=== PATIENT | male | born 1965 | race Caucasian/White ===

== ENCOUNTER 2016-09-26 08:11 | Emergency (ER) | payer OTHER ==
[~2016-09-26] VITALS: Ht 175.3 cm; Wt 84.3 kg
[~2016-09-26 08:11] MED LIST: ALBU1AER9 INH; ALBU1NEB10 INH; AMIT50TA3 PO; ASPI-113 PO; FISHOIL PO; LEVO1TAB34 PO; PARO40TA3 PO; RANI300T PO; SUMA50TA15 PO; pravastatin PO
[2016-09-26 08:12] VITALS: TEMP 37.1; Ht 175.3 cm; Wt 84.3 kg
[2016-09-26] MEDS ORDERED: ALBUT/IPRATROP 3MG/0.5MG NEB 3 ML VIAL INH STA (08:45)
[2016-09-26] MEDS ORDERED: SODIUM CHLORIDE 0.9% 1000ML 1,000 ML IV STA (08:45)
[2016-09-26] MEDS ORDERED: IBUPROFEN 800 MG TAB PO STA (08:45)
[2016-09-26] MEDS ORDERED: IBUPROFEN 200 MG TAB ONE (08:50)
[2016-09-26] MEDS ORDERED: IBUPROFEN 600 MG TAB ONE (08:50)
[2016-09-26] MEDS ORDERED: PRVC/40 PO (08:53)
[2016-09-26 09:12] LABS: BASO % 0.3 %; BASO ABS # 0.04 K/uL (0-0.2); COMPLETE YES; EOS % 1.4 %; HEMATOCRIT 38.9 % (42-52); IG% 0.6 %; LYMPH % 26.7 %; LYMPH ABS # 3.49 K/uL (1.2-3.4); MEAN CELL VOLUME 88.2 fL (80-100); MEAN CORPUSCULAR HEMOGLOBIN 30.2 pg (25-34); MEAN CORPUSCULAR HGB CONC 34.2 g/dl (32-36); MEAN PLATELET VOLUME 9.7 fL (7.4-10.4); PLATELET COUNT 225 K/uL (130-400); RED BLOOD COUNT 4.41 M/uL (4.7-6.1); WHITE BLOOD COUNT 13.09 K/uL (4.8-10.8)
[2016-09-26 09:29] LABS: BUN/CREATININE RATIO 9.2 (10-20); CALCIUM 8.3 mg/dl (8.5-10.1); CREATININE 0.93 mg/dl (0.60-1.40); POTASSIUM 3.5 mmol/L (3.5-5.1)
[2016-09-26 09:32] LABS: ALB/GLOB RATIO 0.8 (0.9-2)
--- NOTE | 2016-09-26 09:45 | DIAGNOSTIC IMAGING REPORT ---
TWO VIEW CHEST CLINICAL HISTORY: Cough and fever. Flulike symptoms. FINDINGS: PA and lateral chest radiographs are compared to study dated 04/26/2007. The heart is top normal for projection. The pulmonary vasculature is noncongested. Chronic interstitial thickening is noted. Bibasilar atelectasis is observed. There is no airspace consolidation typical for pneumonia or pleural effusion. There is no pneumothorax. The skeletal structures are osteopenic. There is moderate to advanced thoracolumbar scoliosis with significant distortion of the thoracic cage. IMPRESSION: No acute cardiopulmonary abnormality. Electronically signed by: Nate Haynes M.D. 09/26/2016 9:43 AM
[2016-09-26] MEDS ORDERED: PRED50TA PO (10:48)
[2016-09-26] MEDS ORDERED: OSELTAMIVIR PHOSPHATE 75 MG CAP PO STA (10:48)
[2016-09-26] MEDS ORDERED: OSEL75CA12 PO (10:48)
[2016-09-26] MEDS ORDERED: DOXY100C76 PO (10:48)
--- NOTE | 2016-09-26 10:51 | EMERGENCY ROOM VISIT NOTE ---
History First contact with patient: : Chief Complaint: COUGH Stated Complaint: COUGH, CONGESTION, CHEST PAIN Nursing Triage Summary: Cough, diarrhea, vomiting since . Went to PCP on tuesday and was told to take robitussin. Was improving and then cough, vomting, and chest pain returned last night. History of Present Illness Patient is a 51-year-old white male past medical history significant for asthma who presents to emergency department for evaluation of influenza-like symptoms 2-3 days. He notes that about a week ago, he had a roughly 24 hour GI illness including nausea, vomiting and diarrhea, but that shortly resolved. He then developed cough and congestion. He was seen by his PCP on 09/21, and told to take Robitussin. He reports that they suspect that his illness with viral in nature at that time. He states he began feeling a bit better until about 2 days ago, at that point, he began to note that he felt run down and lethargic. He started running low-grade fevers around 99F orally. He was working last night and slept almost the entire shift. He did feel nauseous and vomited 1 earlier this morning. He took a nausea medication for this. He also performed a DuoNeb treatment when he got home from work about 4 hours ago. He complains of sinus congestion, headache, cough and congestion. He notes this chest feels sore when he coughs or takes a deep breath. He has congestion in his chest that he can feel but he cannot bring anything up when he coughs. He did receive an influenza vaccine this season. 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 He does have a history of asthma and bronchitis. Review of Systems Review of systems as per HPI. All other systems reviewed were negative. 10 systems reviewed. Past Medical/Surgical History Medical Problems: (1) Acute urinary tract infection (2) Asthma (3) Calculus of kidney and ureter (4) Chronic back pain (5) Depression (6) Dyslipidemia (7) Gastroesophageal reflux disease (8) Kidney stone (9) Migraine (10) Scoliosis (11) Sleep disorder Surgical Problems: (1) spinal surgery due to scoliosis Electronic medical records are reviewed and summarized as above/below. See Problem List. Social History Smoking Status: Former Smoker Alcohol Use: none Marital Status: Housing Status: lives with significant other Occupation Status: employed Current/Historical Medications Scheduled Albuterol Soln (Ventolin Soln), 1 AMP INH Q4HR PRN Albuterol Sulfate (Proair Hfa), 2 PUFFS INH QID Amitriptyline Hcl (Amitriptyline Hcl), 50 MG PO HS Aspirin Enteric Coated (Ecotrin Or Generic), 325 MG PO DAILY Doxycycline Monohydrate (Monodox), 100 MG PO BID Fish Oil ([place]-3), 1 CAP PO DAILY Oseltamivir (Tamiflu), 75 MG PO BID Paroxetine Hcl (Paxil), 40 MG PO DAILY Pravastatin Sod (Pravastatin Sodium), 40 MG PO HS Prednisone (Prednisone), 50 MG PO DAILY Ranitidine Hcl (Zantac), 300 MG PO BID Sumatriptan Succinate (Imitrex), 50 MG PO PRN Allergies Coded Allergies: No Known Allergies (Unverified , 09/26/16) Physical Exam Vital Signs Date Time Temp Pulse Resp B/P Pulse Ox O2 Delivery O2 Flow Rate FiO2 09/26/16 11:23 74 18 114/74 94 09/26/16 09:52 84 18 102/60 95 Room Air 09/26/16 08:34 91 09/26/16 08:16 94 Room Air 09/26/16 08:12 37.1 100 18 121/80 93 Room Air Physical Exam MENTAL STATUS: Patient is an ill although nontoxic appearing 51-year-old white male who is awake and alert and in no acute distress. Temperature in triage was 37.1C orally, however he appeared slightly diaphoretic in the exam room and temperature was rechecked and was 37.5C orally. HEAD: Atraumatic, without temporal or scalp tenderness. EYES: PERRL, EOMI, no discharge or injection. EARS: Tympanic membranes intact, not inflamed, have normal contour. External canals clear. NOSE: Nares patent, turbinates edematous and boggy with clear rhinorrhea. MOUTH: Mucous membranes moist, no lesions, tongue and gums appear normal. THROAT: No pharyngeal injection, exudates, or tonsillar hypertrophy. Airway is patent. NECK: Supple, nontender, no lymphadenopathy. HEART: Regular rate and rhythm without murmurs, ectopy, gallops, or rubs. LUNGS: Clear to auscultation and breath sounds equal, no wheezes, rales, or rhonchi. SKIN: Normal. NEUROLOGICAL: Sensory and motor functions grossly intact. Normal gait. Medical Decision & Procedures ER Provider Diagnostic Interpretation: TWO VIEW CHEST CLINICAL HISTORY: Cough and fever. Flulike symptoms. FINDINGS: PA and lateral chest radiographs are compared to study dated 04/26/2007. The heart is top normal for projection. The pulmonary vasculature is noncongested. Chronic interstitial thickening is noted. Bibasilar atelectasis is observed. There is no airspace consolidation typical for pneumonia or pleural effusion. There is no pneumothorax. The skeletal structures are osteopenic. There is moderate to advanced thoracolumbar scoliosis with significant distortion of the thoracic cage. IMPRESSION: No acute cardiopulmonary abnormality. Laboratory Results 09/26/16 08:56 Red Blood Count 4.41, Mean Corpuscular Volume 88.2, Mean Corpuscular Hemoglobin 30.2, Mean Corpuscular Hemoglobin Concent 34.2, Mean Platelet Volume 9.7, Neutrophils (%) (Auto) 56.0, Lymphocytes (%) (Auto) 26.7, Monocytes (%) (Auto) 15.0, Eosinophils (%) (Auto) 1.4, Basophils (%) (Auto) 0.3, Neutrophils # (Auto ) 7.34, Lymphocytes # (Auto) 3.49, Monocytes # (Auto) 1.96, Eosinophils # (Auto ) 0.18, Basophils # (Auto) 0.04 09/26/16 08:56 Test 09/26/16 08:56 White Blood Count 13.09 K/uL (4.8-10.8) Red Blood Count 4.41 M/uL (4.7-6.1) Hemoglobin 13.3 g/dL (14.0-18.0) Hematocrit 38.9 % (42-52) Mean Corpuscular Volume 88.2 fL (80-100) Mean Corpuscular Hemoglobin 30.2 pg (25-34) Mean Corpuscular Hemoglobin Concent 34.2 g/dl (32-36) Platelet Count 225 K/uL (130-400) Mean Platelet Volume 9.7 fL (7.4-10.4) Neutrophils (%) (Auto) 56.0 % Lymphocytes (%) (Auto) 26.7 % Monocytes (%) (Auto) 15.0 % Eosinophils (%) (Auto) 1.4 % Basophils (%) (Auto) 0.3 % Neutrophils # (Auto) 7.34 K/uL (1.4-6.5) Lymphocytes # (Auto) 3.49 K/uL (1.2-3.4) Monocytes # (Auto) 1.96 K/uL (0.11-0.59) Eosinophils # (Auto) 0.18 K/uL (0-0.5) Basophils # (Auto) 0.04 K/uL (0-0.2) RDW Standard Deviation 41.7 fL (36.4-46.3) RDW Coefficient of Variation 12.9 % (11.5-14.5) Immature Granulocyte % (Auto) 0.6 % Immature Granulocyte # (Auto) 0.08 K/uL (0.00-0.02) Nucleated RBC Absolute Count (auto) 0.09 K/uL (0-0) Nucleated Red Blood Cells % 0.7 % Anion Gap 9.0 mmol/L (3-11) Est Creatinine Clear Calc Drug Dose 93.0 ml/min Estimated GFR () 109.0 Estimated GFR (Non- 94.1 BUN/Creatinine Ratio 9.2 (10-20) Calcium Level 8.3 mg/dl (8.5-10.1) Total Bilirubin 0.4 mg/dl (0.2-1) Aspartate Amino Transf (AST/SGOT) 26 U/L (15-37) Alanine Aminotransferase (ALT/SGPT) 29 U/L (12-78) Alkaline Phosphatase 125 U/L (45-117) Total Protein 7.2 gm/dl (6.4-8.2) Albumin 3.3 gm/dl (3.4-5.0) Globulin 3.9 gm/dl (2.5-4.0) Albumin/Globulin Ratio 0.8 (0.9-2) Lipase 103 U/L (73-393) Influenza Type A Antigen Neg for Influ A (NEG) Influenza Type B Antigen Neg for Influ B (NEG) Medications Administered Medications (Trade) Dose Ordered Sig/Nemo Route Start Time Stop Time Status Last Admin Dose Admin Sodium Chloride (Nss 1000ml) 1,000 ml @ 999 mls/hr Q1H1M STAT IV 09/26/16 08:45 09/26/16 09:45 DC 09/26/16 08:45 999 MLS/HR Albuterol/ Ipratropium (Duoneb) 3 ml NOW STAT INH 09/26/16 08:45 09/26/16 08:47 DC 09/26/16 08:54 3 ML Ibuprofen (Advil Tab) 200 mg STK-MED ONCE .ROUTE 09/26/16 08:50 09/26/16 08:51 DC 09/26/16 08:53 200 MG Ibuprofen (Motrin Tab) 600 mg STK-MED ONCE .ROUTE 09/26/16 08:50 09/26/16 08:51 DC 09/26/16 08:53 600 MG Oseltamivir Phosphate (Tamiflu Cap) 75 mg NOW STAT PO 09/26/16 10:48 09/26/16 10:49 DC 09/26/16 11:18 75 MG ED Course The patient was seen and evaluated as above. His old records were reviewed. IV access was obtained and he was hydrated with normal saline solution. He was given a DuoNeb, and was medicated with ibuprofen 800 mg orally for his low- grade fever and myalgias. Influenza swab was obtained and was negative. CBC with differential, CMP and lipase were also drawn. Chest x-ray was performed. Chest x-ray was negative. Laboratory studies revealed a slightly elevated white count at 13,000. Electrolytes are without significant abnormality. Renal function is normal. Liver functions are not elevated. Lipase is normal. The patient was reassessed. He reported no real change in his symptoms. Despite his negative influenza swab, but did discuss with him treating with Tamiflu, given his high risk job and he is in agreement. He was given his first dose here in the emergency department. I do suspect that he is experiencing a viral list, which may have exacerbated his underlying asthma. Differential diagnoses also entertained included pneumonia and bronchitis. He certainly does not have any signs of meningitis or encephalitis on exam. No respiratory distress or increased work of breathing. Treatment options were discussed with the patient. He has inhalers and nebulizers at home that he can use. He was given a prescriptive for Tamiflu, and a prescription for doxycycline and prednisone that he can start intake if his symptoms are not improving in the next 3-5 days. He was encouraged to return to the emergency department for worsening symptoms or follow up with his PCP if he is not improving. He states understanding of this and was agreeable. He was given a note to be at work for his next shift due to his likely contagious illness. Medical Decision See ED Course. Impression Primary Impression: Influenza-like syndrome Departure Information Prescriptions Prednisone (Prednisone) 50 Mg Tab 50 MG PO DAILY for 4 Days, #5 TAB Prov: Hiral Lancaster PA 09/26/16 Doxycycline Monohydrate (Monodox) 100 Mg Cap 100 MG PO BID, #20 CAP Prov: Hiral Lancaster PA 09/26/16 Oseltamivir (Tamiflu) 75 Mg Cap 75 MG PO BID for 5 Days, #10 CAP Prov: Hiral Lancaster PA 09/26/16 Referrals Brina Sweeney M.D. (MEDICAL) (PCP) Patient Instructions A Signature Page, My [facility] [employer] Additional Instructions Continue inhalers/nebulizers as prescribed. Tamiflu 75mg : Take 1 tablet 2 times daily for 5 days. Prednisone 50mg: Once daily until the prescription is finished. It is best to take this earlier in the day as some patients note occasional difficulty falling asleep when taken in the late evening. Doxycycline 100mg: Take one pill twice daily for 10 days for your infection. Take with food, but avoid dairy. Avoid prolonged sun exposure since this medication makes you temporarily more susceptible to sunburns. All antibiotics can cause diarrhea. If this occurs and you feel worse or it does not resolve in 1-2 days follow up with your doctor or return to the Emergency Department as this could be signs of serious underlying problems. Any medication can cause an allergic reaction, stop the pills immediately and return to the ER for rash, hives, breathing difficulties, or swelling. Ibuprofen(Motrin, Advil) may be used for fever or pain. Use 600mg every six hours as needed. Take with food. Avoid using more than 2400mg in a 24 hour period. Do not use 2400mg per day for more than three consecutive days without physician direction. Prolonged inappropriate use can lead to stomach upset or ulcers. This is available over the counter and typically comes in 200mg tablets. (AND/OR) Acetaminophen(Tylenol) may be used for fever or pain. Use 1000mg every eight hours as needed. Avoid using more than 3000mg in a 24 hour period. This is available over the counter. Read all the package inserts or medication information paperwork provided. If you have any questions or concerns call your primary provider, pharmacist or the ER for assistance. Rest and drink plenty of fluids. Continue current medications. Return to the ER for chest pain, difficulty breathing, persistent fevers, vomiting, worsening of your condition, or as needed. Follow up with your primary physician this week for a recheck of your current condition.
[2016-09-26 11:23] VITALS: BP 114/74; PULSE 74; O2SAT 94
[2016-10-19] MEDS ORDERED: LEVO1TAB33 PO (12:12)
[2016-10-19] MEDS ORDERED: OXYC-57 PO (12:15)
[2017-02-02] MEDS ORDERED: PRED10TA PO (15:19)
[2017-02-02] MEDS ORDERED: LVQ500 PO (15:19)
== END 2016-09-26 11:24 | disposition home or self-care (01) ==
LOC: C.EDB 08:12 → C.EDA 11:24
DX: R69 Illness, unspecified (principal); J45.909 Unspecified asthma, uncomplicated; E78.5 Hyperlipidemia, unspecified; F32.9 Major depressive disorder, single episode, unspecified; Z87.891 Personal history of nicotine dependence; Z79.82 Long term (current) use of aspirin; Z79.899 Other long term (current) drug therapy

== ENCOUNTER 2016-10-15 16:05 | Inpatient (IN) | payer OTHER ==
[~2016-10-15] VITALS: Ht 175.3 cm; Wt 90.3 kg
[~2016-10-15 16:05] MED LIST changes: +DOXY100C76 PO; -LEVO1TAB34 PO; +PRVC/40 PO; -pravastatin PO
[2016-10-15] MEDS ORDERED: ONDANSETRON INJ 2 MG/ML 2 ML VIAL IV STA (16:25)
[2016-10-15] MEDS ORDERED: SODIUM CHLORIDE 0.9% 1000ML 1,000 ML IV STA (16:25)
[2016-10-15] MEDS ORDERED: KETOROLAC TROMETHAMINE 30 MG/ML VIAL IV STA (16:25)
[2016-10-15] MEDS ORDERED: HYDROmorphone INJ 1 MG/ML SYR IV STA ×3 (16:50→19:19)
--- NOTE | 2016-10-15 16:53 | EMERGENCY ROOM VISIT NOTE ---
History Report prepared by Romero: Jaya White Under the Supervision of: Dr. Mariann Hurd M.D. First contact with patient: 16:22 Chief Complaint: ABDOMINAL PAIN Stated Complaint: UPPER ABDOMINAL PAIN, TO LOWER ABD INTO CHEST History of Present Illness The patient is a 51 year old male who presents to the Emergency Room with complaints of persistent abdominal pain that started around 2100 last night while at work. He first thought it was indigestion, and took Peptol Bismol, but it did not help. Earlier today, his sharp abdominal pain started radiating into his chest. He notes that the pain is a 10 out of 10 in severity at worst. The pain is not positional and has no association with movement. He denies any shortness of breath or diarrhea. The patient is on Ranitidine. He has a history of GERD, hypertension, and gallstones. He recently quit smoking. The patient does drink alcohol. Source of History: patient Onset: 2100 last night Position: abdomen Symptom Intensity: 10/10 in severity at worst Quality: sharp Timing: other (persistent) Associated Symptoms: + chest pain, No SOB, No diarrhea Note: No other associated symptoms noted. Review of Systems See HPI for pertinent positives & negatives. A total of 10 systems reviewed and were otherwise negative. Past Medical & Surgical Medical Problems: (1) Acute urinary tract infection (2) Asthma (3) Calculus of kidney and ureter (4) Chronic back pain (5) Depression (6) Dyslipidemia (7) Gastroesophageal reflux disease (8) Kidney stone (9) Migraine (10) Scoliosis (11) Sleep disorder Surgical Problems: (1) spinal surgery due to scoliosis Family History Diabetes mellitus FH: cancer FH: heart disease FH: kidney disease FHx: gallstones Hypertension Social History Smoking Status: Former Smoker Alcohol Use: none Marital Status: Housing Status: lives with significant other Occupation Status: employed Current/Historical Medications Scheduled Albuterol Soln (Ventolin Soln), 1 AMP INH Q4HR PRN Albuterol Sulfate (Proair Hfa), 2 PUFFS INH QID Amitriptyline Hcl (Amitriptyline Hcl), 50 MG PO HS Aspirin (Aspirin Chewable), 81 MG PO DAILY Doxycycline Monohydrate (Monodox), 100 MG PO BID Fish Oil (Brodhead-3), 2 CAP PO DAILY Paroxetine Hcl (Paxil), 40 MG PO DAILY Pravastatin Sod (Pravastatin Sodium), 40 MG PO HS Ranitidine Hcl (Zantac), 300 MG PO BID Sumatriptan Succinate (Imitrex), 50 MG PO PRN Allergies Coded Allergies: No Known Allergies (Unverified , 10/15/16) Physical Exam Vital Signs Date Time Temp Pulse Resp B/P Pulse Ox O2 Delivery O2 Flow Rate FiO2 10/15/16 20:12 88 20 106/66 95 Room Air 10/15/16 18:45 85 20 115/68 93 Room Air 10/15/16 17:22 78 20 147/96 98 Room Air 10/15/16 16:18 36.7 18 18 153/103 93 Room Air Physical Exam CONSTITUTIONAL: Moderate painful distress. HEENT: No icterus, moist mucous membranes NECK: No meningismus, trachea is midline. CARDIOVASCULAR: Regular rate, normal perfusion RESPIRATORY: Unlabored breathing. Clear to auscultation. GASTROINTESTINAL: Moderate epigastric tenderness. GENITOURINARY: No flank tenderness MUSCULOSKELETAL: Full range of motion NEUROLOGIC: No acute gross focal deficits. PSYCHIATRIC: Normal affect SKIN: Normal for ethnicity. Medical Decision & Procedures ER Provider Diagnostic Interpretation: X-ray results as stated below per my interpretation and radiologist interpretation. Other radiology results as stated below per my review and radiologist interpretation. BILIARY ULTRASOUND CLINICAL HISTORY: epigastric pain COMPARISON STUDY: No previous studies for comparison. FINDINGS: The liver is of increased echogenicity. This is most often seen in hepatic steatosis. No focal hepatic masses are visualized. No gallstones are visualized. There is no gallbladder wall thickening and no evidence of pericholecystic fluid. There is no ductal dilatation. The common bile duct measures 5 mm. There is no right-sided hydronephrosis. The pancreas is nonvisualized. IMPRESSION: 1. Technically difficult study 2. Nondiagnostic evaluation the pancreas 3. Hepatic steatosis 4. No gallstones identified. No ductal dilatation. Electronically signed by: Isma London M.D. 10/15/2016 5:59 PM Dictated Date/Time: 10/15/2016 5:58 PM CHEST ONE VIEW PORTABLE CLINICAL HISTORY: epigastric pain COMPARISON STUDY: 09/26/2016 FINDINGS: The heart is the upper limits of normal in size. There is a prominent thoracolumbar scoliosis. There are chronic rib deformities. There is mild interstitial thickening similar to the preceding study. There is no lobar consolidation. No pleural effusions are visualized. IMPRESSION: There is bilateral interstitial thickening, similar to the prior study and likely chronic. There is no focal pulmonary consolidation. There is a severe scoliosis with chronic rib deformities. Electronically signed by: Isma London M.D. 10/15/2016 5:15 PM Dictated Date/Time: 10/15/2016 5:[address] ABD/PELVIS IV AND ORAL CONT CLINICAL HISTORY: Severe epigastric pain COMPARISON STUDY: CT scan dated to 3, biliary ultrasound dated 10/15/2016. TECHNIQUE: Following the IV administration of 117 mL of Optiray-320, CT scan of the abdomen and pelvis was performed from the lung bases to the proximal femurs. Images are reviewed in the axial, sagittal, and coronal planes. IV contrast was administered without complication. CT DOSE: 803.44 mGy.cm FINDINGS: Lower chest: There is bilateral interstitial thickening, similar to the preceding study. Liver: There is hepatic steatosis. No focal masses are visualized. Gallbladder: Unremarkable. Spleen: Normal in size and attenuation. Pancreas: No focal masses are visualized. There is edema surrounding the pancreatic head and descending duodenum. The findings are consistent with pancreatitis. Correlation with appropriate biochemical markers is recommended. A duodenitis or groove pancreatitis could appear similar Adrenal glands: Unremarkable. Kidneys: There is symmetric renal cortical enhancement. The kidneys are normal in size without hydronephrosis. Bowel: There are no transition zones indicate bowel obstruction. There is colonic diverticulosis. There are no acute peridiverticular inflammatory changes. There were no findings to indicate acute appendicitis. The appendix is however not visualized with certainty. Peritoneum: There is no intraperitoneal free air or abdominal ascites. Vasculature: The abdominal aorta is normal in course and caliber. Adenopathy: None. Pelvic viscera: The bladder, and pelvic viscera are unremarkable. Skeletal structures: There is a severe scoliosis. Postsurgical changes are present within the spine. IMPRESSION: 1. Infiltration of the fat surrounding the pancreatic head and descending duodenum. The findings likely represent pancreatitis. Correlation with appropriate biochemical markers is recommended 2. No evidence of bowel obstruction. No evidence of free air Electronically signed by: Isma London M.D. 10/15/2016 7:53 PM Dictated Date/Time: 10/15/2016 7:47 PM Laboratory Results 10/15/16 17:00 Red Blood Count 4.82, Mean Corpuscular Volume 85.3, Mean Corpuscular Hemoglobin 30.5, Mean Corpuscular Hemoglobin Concent 35.8, Neutrophils (%) (Auto) 63.9, Lymphocytes (%) (Auto) 22.8, Monocytes (%) (Auto) 9.6, Eosinophils (%) (Auto) 3.0, Basophils (%) (Auto) 0.1, Neutrophils # (Auto) 8.64, Lymphocytes # (Auto) 3.08, Monocytes # (Auto) 1.30, Eosinophils # (Auto) 0.40, Basophils # (Auto) 0.02 10/15/16 17:00 Test 10/15/16 17:00 White Blood Count 13.52 K/uL (4.8-10.8) Red Blood Count 4.82 M/uL (4.7-6.1) Hemoglobin 14.7 g/dL (14.0-18.0) Hematocrit 41.1 % (42-52) Mean Corpuscular Volume 85.3 fL (80-100) Mean Corpuscular Hemoglobin 30.5 pg (25-34) Mean Corpuscular Hemoglobin Concent 35.8 g/dl (32-36) Platelet Count 159 K/uL (130-400) Neutrophils (%) (Auto) 63.9 % Lymphocytes (%) (Auto) 22.8 % Monocytes (%) (Auto) 9.6 % Eosinophils (%) (Auto) 3.0 % Basophils (%) (Auto) 0.1 % Neutrophils # (Auto) 8.64 K/uL (1.4-6.5) Lymphocytes # (Auto) 3.08 K/uL (1.2-3.4) Monocytes # (Auto) 1.30 K/uL (0.11-0.59) Eosinophils # (Auto) 0.40 K/uL (0-0.5) Basophils # (Auto) 0.02 K/uL (0-0.2) Immature Granulocyte % (Auto) 0.6 % Immature Granulocyte # (Auto) 0.08 K/uL (0.00-0.02) Anion Gap 9.0 mmol/L (3-11) Est Creatinine Clear Calc Drug Dose 111.3 ml/min Estimated GFR () 114.5 Estimated GFR (Non- 98.8 BUN/Creatinine Ratio 12.6 (10-20) Calcium Level 8.4 mg/dl (8.5-10.1) Total Bilirubin 0.4 mg/dl (0.2-1) Direct Bilirubin < 0.1 mg/dl (0-0.2) Aspartate Amino Transf (AST/SGOT) 23 U/L (15-37) Alanine Aminotransferase (ALT/SGPT) 45 U/L (12-78) Alkaline Phosphatase 131 U/L (45-117) Troponin I < 0.015 ng/ml (0-0.045) Total Protein 7.2 gm/dl (6.4-8.2) Albumin 3.4 gm/dl (3.4-5.0) Lipase 1744 U/L (73-393) Labs reviewed by ED physician. Medications Administered Medications (Trade) Dose Ordered Sig/Nemo Route Start Time Stop Time Status Last Admin Dose Admin Sodium Chloride (Nss 1000ml) 1,000 ml @ 0 mls/hr Q0M STAT IV 10/15/16 16:25 10/15/16 16:27 DC 10/15/16 16:25 999 MLS/HR Ondansetron HCl (Zofran Inj) 4 mg NOW STAT IV 10/15/16 16:25 10/15/16 16:27 DC 10/15/16 17:19 4 MG Ketorolac Tromethamine (Toradol Inj) 30 mg NOW STAT IV 10/15/16 16:25 10/15/16 16:27 DC 10/15/16 17:19 30 MG Hydromorphone HCl (Dilaudid Inj) 1 mg PRN STAT IV 10/15/16 16:50 10/15/16 16:56 DC 10/15/16 17:19 1 MG Hydromorphone HCl 1 mg 1 mg PRN STAT IV 10/15/16 19:19 10/15/16 19:20 DC 10/15/16 19:24 1 MG Lactated Ringer's (Lr 1000ml) 1,000 ml @ 200 mls/hr Q5H IV 10/15/16 20:15 11/14/16 20:14 10/15/16 20:10 200 MLS/HR ECG Indication: abdominal pain Rate (beats per minute): 95 Rhythm: normal sinus Findings: other (normal axis, nonspecific-ST findings) ED Course 1625: Ordered Toradol Inj 30 mg IV, Zofran Inj 4 mg IV, NSS 1000 ml @ 0 mls/hr Wide Open. 163: Past medical records reviewed. The patient was evaluated in room C5. A complete history and physical examination was performed. 1649: Ordered Dilaudid Inj 1 mg IV PRN. 1918: Ordered Dilaudid Inj 1 mg IV NOW. 1941: I discussed the patient with Dr. Staci Mccarty astrobiologist - he will evaluate the patient for further treatment. 1943: I reevaluated the patient and he is resting comfortably. The patient verbally expressed agreement and understanding of the treatment plan. The patient will be evaluated for further treatment. Medical Decision Differential diagnoses include: cholelithiasis, choledocholithiasis, obstruction , heart disease. 51-year-old presented to the emergency department for evaluation of worsening epigastric pain. Lipase was noted to be markedly elevated and ultrasound as well as CAT scan did not reveal etiology. Patient medicated for pain and admission arranged with hospital service for pancreatitis. Consults Time Called: 1939 Consulting Physician: Dr. Staci Mccarty astrobiologist Returned Call: 1941 I discussed the patient with Dr. Staci Mccarty astrobiologist - he will evaluate the patient for further treatment. Impression Primary Impression: Pancreatitis Scribe Attestation The scribe's documentation has been prepared under my direction and personally reviewed by me in its entirety. I confirm that the note above accurately reflects all work, treatment, procedures, and medical decision making performed by me. Departure Information Dispostion Being Evaluated By Hospitalist Referrals Brina Sweeney M.D. (MEDICAL) (PCP) Patient Instructions My [facility]
[2016-10-15] MEDS ORDERED: OPTIRAY 320 IV PRN (17:00)
--- NOTE | 2016-10-15 17:17 | DIAGNOSTIC IMAGING REPORT ---
CHEST ONE VIEW PORTABLE CLINICAL HISTORY: epigastric pain COMPARISON STUDY: 09/26/2016 FINDINGS: The heart is the upper limits of normal in size. There is a prominent thoracolumbar scoliosis. There are chronic rib deformities. There is mild interstitial thickening similar to the preceding study. There is no lobar consolidation. No pleural effusions are visualized. IMPRESSION: There is bilateral interstitial thickening, similar to the prior study and likely chronic. There is no focal pulmonary consolidation. There is a severe scoliosis with chronic rib deformities. Electronically signed by: Isma London M.D. 10/15/2016 5:15 PM Dictated Date/Time: 10/15/2016 5:13 PM
[2016-10-15 17:45] LABS: ALT/SGPT 45 U/L (12-78); AST/SGOT 23 U/L (15-37); BLOOD UREA NITROGEN 11 mg/dl (7-18); BUN/CREATININE RATIO 12.6 (10-20); CALCIUM 8.4 mg/dl (8.5-10.1); CARBON DIOXIDE 26 mmol/L (21-32); CHLORIDE 106 mmol/L (98-107); CREATININE 0.88 mg/dl (0.60-1.40); GLUCOSE 94 mg/dl (70-99); SODIUM 141 mmol/L (136-145)
[2016-10-15 17:50] LABS: ALKALINE PHOSPHATASE 131 U/L (45-117)
[2016-10-15] MEDS ORDERED: ASPCH81X PO (17:59)
--- NOTE | 2016-10-15 18:01 | DIAGNOSTIC IMAGING REPORT ---
BILIARY ULTRASOUND CLINICAL HISTORY: epigastric pain COMPARISON STUDY: No previous studies for comparison. FINDINGS: The liver is of increased echogenicity. This is most often seen in hepatic steatosis. No focal hepatic masses are visualized. No gallstones are visualized. There is no gallbladder wall thickening and no evidence of pericholecystic fluid. There is no ductal dilatation. The common bile duct measures 5 mm. There is no right-sided hydronephrosis. The pancreas is nonvisualized. IMPRESSION: 1. Technically difficult study 2. Nondiagnostic evaluation the pancreas 3. Hepatic steatosis 4. No gallstones identified. No ductal dilatation. Electronically signed by: Isma London M.D. 10/15/2016 5:59 PM Dictated Date/Time: 10/15/2016 5:58 PM
[2016-10-15 18:08] LABS: BASO % 0.1 %; BASO ABS # 0.02 K/uL (0-0.2); COMPLETE YES; HEMATOCRIT 41.1 % (42-52); IG% 0.6 %; LYMPH % 22.8 %; LYMPH ABS # 3.08 K/uL (1.2-3.4); MEAN CELL VOLUME 85.3 fL (80-100); MEAN CORPUSCULAR HEMOGLOBIN 30.5 pg (25-34); MEAN CORPUSCULAR HGB CONC 35.8 g/dl (32-36); MONO % 9.6 %; NEUT % 63.9 %; PLATELET COUNT 159 K/uL (130-400); RED BLOOD COUNT 4.82 M/uL (4.7-6.1); WHITE BLOOD COUNT 13.52 K/uL (4.8-10.8)
--- NOTE | 2016-10-15 19:55 | DIAGNOSTIC IMAGING REPORT ---
CT ABD/PELVIS IV AND ORAL CONT CLINICAL HISTORY: Severe epigastric pain COMPARISON STUDY: CT scan dated to 713, biliary ultrasound dated 10/15/2016. TECHNIQUE: Following the IV administration of 117 mL of Optiray-320, CT scan of the abdomen and pelvis was performed from the lung bases to the proximal femurs. Images are reviewed in the axial, sagittal, and coronal planes. IV contrast was administered without complication. CT DOSE: 803.44 mGy.cm FINDINGS: Lower chest: There is bilateral interstitial thickening, similar to the preceding study. Liver: There is hepatic steatosis. No focal masses are visualized. Gallbladder: Unremarkable. Spleen: Normal in size and attenuation. Pancreas: No focal masses are visualized. There is edema surrounding the pancreatic head and descending duodenum. The findings are consistent with pancreatitis. Correlation with appropriate biochemical markers is recommended. A duodenitis or groove pancreatitis could appear similar Adrenal glands: Unremarkable. Kidneys: There is symmetric renal cortical enhancement. The kidneys are normal in size without hydronephrosis. Bowel: There are no transition zones indicate bowel obstruction. There is colonic diverticulosis. There are no acute peridiverticular inflammatory changes. There were no findings to indicate acute appendicitis. The appendix is however not visualized with certainty. Peritoneum: There is no intraperitoneal free air or abdominal ascites. Vasculature: The abdominal aorta is normal in course and caliber. Adenopathy: None. Pelvic viscera: The bladder, and pelvic viscera are unremarkable. Skeletal structures: There is a severe scoliosis. Postsurgical changes are present within the spine. IMPRESSION: 1. Infiltration of the fat surrounding the pancreatic head and descending duodenum. The findings likely represent pancreatitis. Correlation with appropriate biochemical markers is recommended 2. No evidence of bowel obstruction. No evidence of free air Electronically signed by: Isma London M.D. 10/15/2016 7:53 PM Dictated Date/Time: 10/15/2016 7:47 PM
[2016-10-15] MEDS: LACTATED RINGER'S 1000ML 1,000 ML IV SCH (20:10)
[2016-10-15 22:02] LABS: MANUAL MICROSCOPIC REQUIRED? NO; REVIEW REQ? NO; URINE APPEARANCE CLEAR (CLEAR); URINE BILIRUBIN NEG (NEG); URINE COLOR YELLOW; URINE NITRITE NEG (NEG); URINE PH 5.5 (4.5-7.5); URINE SPECIFIC GRAVITY > 1.045 (1.000-1.030); UROBILINOGEN NEG (NEG)
[2016-10-15 22:27] LABS: MAGNESIUM 2.1 mg/dl (1.8-2.4); THYROID STIMULATING HORMONE 1.74 uIu/ml (0.300-4.500)
[2016-10-15] MEDS ORDERED: ACETAMINOPHEN 325 MG TAB PO PRN (22:45)
[2016-10-15] MEDS ORDERED: TRAMADOL HCL 50 MG TAB PO PRN ×2 (22:45)
[2016-10-15] MEDS ORDERED: ONDANSETRON INJ 2 MG/ML 2 ML VIAL IV PRN (22:45)
[2016-10-15] MEDS ORDERED: MoRPHine SULFATE 2 MG/ML CARP IV PRN (22:45)
[2016-10-15] MEDS ORDERED: KETOROLAC TROMETHAMINE 30 MG/ML VIAL ONE (23:43)
[2016-10-16] MEDS ORDERED: HYDROmorphone INJ 0.5 MG/0.5 ML SYR IV ONE (01:00)
[2016-10-16] MEDS ORDERED: HYDROmorphone INJ 0.5 MG/0.5 ML SYR ONE (01:08)
[2016-10-16 01:26] VITALS: BP 125/80; PULSE 85; TEMP 36.5; O2SAT 94; Ht 175.3 cm; Wt 90.3 kg
[2016-10-16] MEDS: LACTATED RINGER'S 1000ML 1,000 ML IV SCH ×4 (02:13→20:55)
[2016-10-16] MEDS: HYDROmorphone INJ 0.5 MG/0.5 ML SYR IV PRN ×6 (04:14→22:44)
[2016-10-16] MEDS ORDERED: CALCIUM GLUCONATE 10% 1,000 MG in SODIUM CHLORIDE 0.9% 50ML 50 ML IV STA (06:45)
--- NOTE | 2016-10-16 07:10 | HISTORY & PHYSICAL EXAMINATION ---
DATE OF ADMISSION: 10/15/2016 PRIMARY CARE PHYSICIAN: Dr. Sweeney. Hx obtained from px and records. CHIEF COMPLAINT: Abdominal pain. HISTORY OF PRESENT ILLNESS: Medical history significant for hypertension, hyperlipidemia, asthma, past tobacco abuse. Recent confinement October 2012 for complicated UTI. One-day history of epigastric pain with nausea, dry heaving, good bowel movement. No chest pain, no shortness of breath, no fever, no chills. Last alcohol intake was a few days ago. Denies excessive alcohol intake. Patient brought to the Emergency Room. MEDICAL HISTORY: Medical history as above. Last week patient had bronchitis symptoms - completed outpatient prednisone course. HOME MEDICATIONS: Include albuterol, doxycycline, fish oil, pravastatin, sumatriptan, amitriptyline, aspirin, paroxetine, Zantac. ALLERGIES: No drug allergies. FAMILY HISTORY: Family history of heart disease. REVIEW OF SYSTEMS: As per HPI, all other ROS negative. PHYSICAL EXAMINATION: VITAL SIGNS: Blood pressure was noted to be 115/68, pulse rate 85, RR 20, temperature 36.7, sats 98RA GENERAL: Obese. SKIN : normal color. HEENT: Fuig palpebral conjunctivae. Dry mucosa. NECK: No JVD. supple CHEST: Clear to auscultation. HEART: Regular rate and rhythm. ABDOMEN: Epigastric tenderness. EXTREMITIES: No edema, no tenderness. NEUROLOGIC: No gross focality. LABS: Hemoglobin was noted to be 14.7, hematocrit 38, white cells 13.5, platelets 159. Sodium 141, potassium 4, chloride was 106, CO2 of 26, BUN 11, creatinine 0.8, glucose was noted to be 94, lipase 1744. CT of the abdomen and pelvis showed pancreatitis. ASSESSMENT: 1. Acute pancreatitis unclear etiology 2. recent URTI sp tx 3. past tobacco abuse. PLAN: GMF analgesia, IV fluids. Follow lipase. GI consult, RE pancreatitis. DVT prophylaxis. Lovenox subQ. Full code. MTDD
[2016-10-16] MEDS: ASPIRIN 81 MG ECTAB PO SCH (07:42)
[2016-10-16] MEDS: RANITIDINE HCL 150 MG TAB PO SCH ×2 (07:42→21:43)
[2016-10-16] MEDS: PAROXETINE 20 MG TAB PO SCH (07:42)
[2016-10-16 07:46] LABS: BASO % 0.2 %; BASO ABS # 0.02 K/uL (0-0.2); COMPLETE YES; EOS % 2.9 %; HEMATOCRIT 36.1 % (42-52); IG% 0.2 %; LYMPH % 24.9 %; LYMPH ABS # 3.19 K/uL (1.2-3.4); MEAN CORPUSCULAR HEMOGLOBIN 29.8 pg (25-34); MEAN CORPUSCULAR HGB CONC 33.8 g/dl (32-36); MEAN PLATELET VOLUME 10.1 fL (7.4-10.4); MONO % 9.5 %; NEUT % 62.3 %; PLATELET COUNT 150 K/uL (130-400); WHITE BLOOD COUNT 12.83 K/uL (4.8-10.8)
[2016-10-16 07:50] VITALS: BP 142/80; PULSE 99; TEMP 37.1; O2SAT 92
[2016-10-16 07:52] LABS: INR 1.1 (0.9-1.1); PROTHROMBIN TIME (PATIENT) 11.3 SECONDS (9.0-12.0)
[2016-10-16 08:00] VITALS: O2SAT 92
[2016-10-16 08:16] LABS: CALCIUM 8.2 mg/dl (8.5-10.1); CREATININE 0.82 mg/dl (0.60-1.40)
--- NOTE | 2016-10-16 13:23 | Progress Note ---
Medicine Progress Note Date & Time of Visit: Oct 16, 2016 at 13:00. Subjective Pt was seen and examined Lying in bed with no distress Pt said that he is still having abdominal pain that is diffuse he said that he is hungry Pt said that his last alcohol drink was on Tuesday He said that he only drank 2 glasses Denies any fever, chest pain, palpitation and SOB he said that Dilaudid usually the only pain med that works for him Objective Last 8 Hrs Date Time Temp Pulse Resp B/P Pulse Ox O2 Delivery O2 Flow Rate FiO2 10/16/16 07:50 37.1 99 20 142/80 92 Room Air Physical Exam: General- No acute distress Head- atraumatic Eyes- PERRL, EOMI ENT- oropharynx clear Neck- supple, no JVD Lungs- clear to auscultation and percussion Heart- regular rhythm; no murmur Abdomen- normal bowel sounds, diffuse abdominal tenderness Extremities- no calf tenderness Neuro- alert, oriented x 3; PERRL, EOMI; no facial palsy Skin- warm & dry Laboratory Results: Last 24 Hours Test 10/15/16 17:00 10/15/16 21:42 10/16/16 07:03 White Blood Count 13.52 K/uL 12.83 K/uL Red Blood Count 4.82 M/uL 4.10 M/uL Hemoglobin 14.7 g/dL 12.2 g/dL Hematocrit 41.1 % 36.1 % Mean Corpuscular Volume 85.3 fL 88.0 fL Mean Corpuscular Hemoglobin 30.5 pg 29.8 pg Mean Corpuscular Hemoglobin Concent 35.8 g/dl 33.8 g/dl Platelet Count 159 K/uL 150 K/uL Neutrophils (%) (Auto) 63.9 % 62.3 % Lymphocytes (%) (Auto) 22.8 % 24.9 % Monocytes (%) (Auto) 9.6 % 9.5 % Eosinophils (%) (Auto) 3.0 % 2.9 % Basophils (%) (Auto) 0.1 % 0.2 % Neutrophils # (Auto) 8.64 K/uL 8.00 K/uL Lymphocytes # (Auto) 3.08 K/uL 3.19 K/uL Monocytes # (Auto) 1.30 K/uL 1.22 K/uL Eosinophils # (Auto) 0.40 K/uL 0.37 K/uL Basophils # (Auto) 0.02 K/uL 0.02 K/uL Immature Granulocyte % (Auto) 0.6 % 0.2 % Immature Granulocyte # (Auto) 0.08 K/uL 0.03 K/uL Sodium Level 141 mmol/L 139 mmol/L Potassium Level 4.0 mmol/L 4.0 mmol/L Chloride Level 106 mmol/L 103 mmol/L Carbon Dioxide Level 26 mmol/L 27 mmol/L Anion Gap 9.0 mmol/L 9.0 mmol/L Blood Urea Nitrogen 11 mg/dl 8 mg/dl Creatinine 0.88 mg/dl 0.82 mg/dl Est Creatinine Clear Calc Drug Dose 111.3 ml/min 119.5 ml/min Estimated GFR () 114.5 117.8 Estimated GFR (Non- 98.8 101.7 BUN/Creatinine Ratio 12.6 10.0 Random Glucose 94 mg/dl 76 mg/dl Calcium Level 8.4 mg/dl 8.2 mg/dl Magnesium Level 2.1 mg/dl Total Bilirubin 0.4 mg/dl 0.8 mg/dl Direct Bilirubin < 0.1 mg/dl Aspartate Amino Transf (AST/SGOT) 23 U/L 20 U/L Alanine Aminotransferase (ALT/SGPT) 45 U/L 35 U/L Alkaline Phosphatase 131 U/L 102 U/L Troponin I < 0.015 ng/ml Total Protein 7.2 gm/dl 6.0 gm/dl Albumin 3.4 gm/dl 3.0 gm/dl Lipase 1744 U/L 811 U/L Thyroid Stimulating Hormone (TSH) 1.740 uIu/ml Urine Color YELLOW Urine Appearance CLEAR Urine pH 5.5 Urine Specific Calvin > 1.045 Urine Protein NEG Urine Glucose (UA) NEG Urine Ketones NEG Urine Occult Blood NEG Urine Nitrite NEG Urine Bilirubin NEG Urine Urobilinogen NEG Urine Leukocyte Esterase NEG Mean Platelet Volume 10.1 fL RDW Standard Deviation 41.6 fL RDW Coefficient of Variation 13.0 % Prothrombin Time 11.3 SECONDS Prothromb Time International Ratio 1.1 Globulin 3.0 gm/dl Albumin/Globulin Ratio 1.0 Assessment & Plan Acute pancreatitis CT abdomen showed infiltration of the fat surrounding the pancreatic head and descending duodenum. Elevated lipase, that is trending down Pt said last alcohol intake was on Tuesday Continue supportive management with IVF, and pain med Monitor electrolytes will start on clear liquid diet Gastro on board Tobacco abuse. Counseling on smoking cessation GI px on PPI DVT px on Lovenox subq Code Status Full Code Consultants: Gastro Current Inpatient Medications: Current Inpatient Medications Medications (Trade) Dose Ordered Sig/Nemo Route Start Time Stop Time Status Last Admin Dose Admin Ioversol 111 ml 111 ml UD PRN IV 10/15/16 17:00 10/19/16 16:59 Lactated Ringer's (Lr 1000ml) 1,000 ml @ 200 mls/hr Q5H IV 10/15/16 20:15 10/16/16 06:49 200 MLS/HR Enoxaparin Sodium (Lovenox Inj) 40 mg Q24H SQ 10/17/16 09:00 11/16/16 08:59 Acetaminophen (Tylenol Tab) 650 mg Q4H PRN PO 10/15/16 22:45 11/14/16 22:44 Ketorolac Tromethamine (Toradol Inj) 30 mg Q6H PRN IV 10/15/16 22:45 10/20/16 22:44 Ondansetron HCl (Zofran Inj) 4 mg Q6H PRN IV 10/15/16 22:45 11/14/16 22:44 Amitriptyline HCl (Elavil Tab) 50 mg HS PO 10/16/16 21:00 11/15/16 20:59 Aspirin (Ecotrin Tab) 81 mg QAM PO 10/16/16 08:00 11/15/16 07:59 10/16/16 07:42 81 MG Paroxetine HCl (pAXil TAB) 40 mg DAILY PO 10/16/16 08:00 11/15/16 08:59 10/16/16 07:42 40 MG Ranitidine HCl (zANTac TAB) 300 mg BID PO 10/16/16 08:00 11/15/16 07:59 10/16/16 07:42 300 MG Tramadol HCl (Ultram Tab) 25 mg Q6H PRN PO 10/15/16 22:45 11/14/16 22:44 Hydromorphone HCl (Dilaudid Inj) 0.5 mg Q3H PRN IV 10/16/16 01:00 10/30/16 00:59 10/16/16 10:21 0.5 MG
--- NOTE | 2016-10-16 13:54 | Medical Consult ---
Consultation Note Consultation Note Reason for consult: pancreatitis HPI: 51 yo M with PMH as below in USOH until night, when he developed abrupt onset of upper abdominal cramping that radiated to both sides shortly after eating dinner. Pain persisted through Tuesday, and he presented to ER Tuesday evening when pain progressed. He had nausea but no vomiting, and he tolerated a large fatty breakfast on Tuesday morning without difficulty. He denies prior h/o similar pain, and denies symptoms of biliary colic. On presentation to ER, his VS were unremarkable and he had epigastric tenderness. Lipase markedly increased, transaminases normal, BUN normal. He underwent uls, which was described as technically difficult, which showed no evidence of cnidy dil or stones. CT was concerning for groove pancreatitis. Overnight and this morning, he has continued to have abdominal cramping requiring regular doses of narcotics. He is passing small amts of flatus. He is hungry, and wolfgang sips of clears. His input is listed as about 1400 cc since admissioon, and he has LR running at 200 cc. His sats have been in the low 90' s. His BUN has remained normal, and admission Hgb feel from 14 to 12. He is an occasional drinker, about 2 drinks/week; his last EtOH consumption was 2 drinks on Tuesday. He denies MJ or other illicit drugs, and has not been started on any new meds recently. PAST MEDICAL HISTORY: HTN, Hyperlipid, asthma, tobacco use. Recent viral illness in August requiring prednisone, which he d/c'd abt 1 week ago. HOME MEDICATIONS: Include albuterol, doxycycline, fish oil, pravastatin, sumatriptan, amitriptyline, aspirin, paroxetine, Zantac. ALLERGIES: No drug allergies. FAMILY HISTORY: Family history of heart disease. REVIEW OF SYSTEMS: As per HPI, others negative. PHYSICAL EXAMINATION: Vital Signs Past 12 Hours Date Time Temp Pulse Resp B/P Pulse Ox O2 Delivery O2 Flow Rate FiO2 10/16/16 07:50 37.1 99 20 142/80 92 Room Air GENERAL: Obese. He appears comfortable, watching television in bed. He does not appear short of breath. HEENT: [place] palpebral conjunctivae. Dry mucosa. Skin normal color. NECK: No JVD. CHEST: Clear to auscultation. HEART: Regular rate and rhythm. ABDOMEN: Protuberant abdomen. His abd is mildly distended and tympanic. Epigastric tenderness on light palpation without rebound or guarding. EXTREMITIES: No edema, no tenderness. NEUROLOGIC: No gross focality. LABS: Last 24 Hours Test 10/15/16 17:00 10/15/16 21:42 10/16/16 07:03 White Blood Count 13.52 K/uL 12.83 K/uL Red Blood Count 4.82 M/uL 4.10 M/uL Hemoglobin 14.7 g/dL 12.2 g/dL Hematocrit 41.1 % 36.1 % Mean Corpuscular Volume 85.3 fL 88.0 fL Mean Corpuscular Hemoglobin 30.5 pg 29.8 pg Mean Corpuscular Hemoglobin Concent 35.8 g/dl 33.8 g/dl Platelet Count 159 K/uL 150 K/uL Neutrophils (%) (Auto) 63.9 % 62.3 % Lymphocytes (%) (Auto) 22.8 % 24.9 % Monocytes (%) (Auto) 9.6 % 9.5 % Eosinophils (%) (Auto) 3.0 % 2.9 % Basophils (%) (Auto) 0.1 % 0.2 % Neutrophils # (Auto) 8.64 K/uL 8.00 K/uL Lymphocytes # (Auto) 3.08 K/uL 3.19 K/uL Monocytes # (Auto) 1.30 K/uL 1.22 K/uL Eosinophils # (Auto) 0.40 K/uL 0.37 K/uL Basophils # (Auto) 0.02 K/uL 0.02 K/uL Immature Granulocyte % (Auto) 0.6 % 0.2 % Immature Granulocyte # (Auto) 0.08 K/uL 0.03 K/uL Sodium Level 141 mmol/L 139 mmol/L Potassium Level 4.0 mmol/L 4.0 mmol/L Chloride Level 106 mmol/L 103 mmol/L Carbon Dioxide Level 26 mmol/L 27 mmol/L Anion Gap 9.0 mmol/L 9.0 mmol/L Blood Urea Nitrogen 11 mg/dl 8 mg/dl Creatinine 0.88 mg/dl 0.82 mg/dl Est Creatinine Clear Calc Drug Dose 111.3 ml/min 119.5 ml/min Estimated GFR () 114.5 117.8 Estimated GFR (Non- 98.8 101.7 BUN/Creatinine Ratio 12.6 10.0 Random Glucose 94 mg/dl 76 mg/dl Calcium Level 8.4 mg/dl 8.2 mg/dl Magnesium Level 2.1 mg/dl Total Bilirubin 0.4 mg/dl 0.8 mg/dl Direct Bilirubin < 0.1 mg/dl Aspartate Amino Transf (AST/SGOT) 23 U/L 20 U/L Alanine Aminotransferase (ALT/SGPT) 45 U/L 35 U/L Alkaline Phosphatase 131 U/L 102 U/L Troponin I < 0.015 ng/ml Total Protein 7.2 gm/dl 6.0 gm/dl Albumin 3.4 gm/dl 3.0 gm/dl Lipase 1744 U/L 811 U/L Thyroid Stimulating Hormone (TSH) 1.740 uIu/ml Urine Color YELLOW Urine Appearance CLEAR Urine pH 5.5 Urine Specific [place] > 1.045 Urine Protein NEG Urine Glucose (UA) NEG Urine Ketones NEG Urine Occult Blood NEG Urine Nitrite NEG Urine Bilirubin NEG Urine Urobilinogen NEG Urine Leukocyte Esterase NEG Mean Platelet Volume 10.1 fL RDW Standard Deviation 41.6 fL RDW Coefficient of Variation 13.0 % Prothrombin Time 11.3 SECONDS Prothromb Time International Ratio 1.1 Globulin 3.0 gm/dl Albumin/Globulin Ratio 1.0 A/P: Pancreatitis - Unclear etiology. DDX = occult stone disease, occult malignancy, drug induced (pravastatin is a class IA drug regarding possibility of pancreatitis, prednisone is a class 2 drug), hypertriglyceridemia. His tobacco use may contribute to his risk of pancreatitis as well. Will check trigs now, hold statin, and plan for eventual outpt EUS. - He appears dry, although his BUN remains low and he is not hemoconcentrated - - Will give 1 liter NS now, and plan to continue LR at 250 overnight. Continue analgesia as needed. Adv diet as tolerated -- will try clears. Relistor and Reglan to treat the possibility of narcotic or pancreatitis induced ileus. His sats are mildly low, which may be related to recent URI and to atelecasis or splinting - please follow sats, and consider chest CT to r/o PE if persistent. - There is no need to follow lipase - this has no prognostic value, and persistent elevation of his lipase does not suggest ongoing or untreated pancreatitis.
[2016-10-16 16:00] VITALS: O2SAT 92
[2016-10-16] MEDS ORDERED: METHYLNALTREXONE BROMIDE INJ 12 MG/0.6 ML SYR SQ ONE (16:00)
[2016-10-16 16:31] VITALS: BP 119/69; PULSE 96; TEMP 36.8; O2SAT 95
[2016-10-16] MEDS ORDERED: AMITRIPTYLINE HCL 25 MG TAB PO SCH (21:00)
[2016-10-16] MEDS: METOCLOPRAMIDE HCL INJ 5 MG/ML 2 ML VIAL IV. SCH (21:44)
[2016-10-16 22:36] VITALS: BP 151/78; PULSE 94; TEMP 37.2; O2SAT 91
--- NOTE | 2016-10-16 23:54 | Progress Note ---
Internal Med Progress Note Date of Service: Oct 16, 2016. Provider Documentation: Made aware by RN of increasing disorientation/tremulousness since last night px reaching for objects AP ? ETOH withdrawal Gabapentin, Ativan as per protocol DT precautions ADDENDUM : Px noted to be hypoxemic around 3AM. O2 sats 80s px disoriented no overt resp distress no cough sx as per RN px denies cp, sob CXR bilat infiltrates BNP normal CT chest iniital read no PE; multifocal pneumonia AP Hypoxemic resp failure ? incipient ARDS vs HAP PCU transfer for closer monitoring supplemental O2 baseline ABG CS, Zosyn for now nebs RTC, prn ff official CT results may need Pulmo eval Px updated of developments over the phone. Px denies knowledge of abnormal ETOH consumption at home other than usual weekend drinking habits. Will relay to AM provider. Vital Signs: Date Time Temp Pulse Resp B/P Pulse Ox O2 Delivery O2 Flow Rate FiO2 10/17/16 07:50 Nasal Cannula 2.0 10/17/16 07:41 85 20 98 Nasal Cannula 2.0 10/17/16 06:08 36.7 88 22 126/85 98 Nasal Cannula 2.0 10/17/16 04:23 88 20 96 Nasal Cannula 2.0 10/17/16 03:00 37.0 95 20 137/80 86 Room Air 10/16/16 22:36 37.2 94 20 151/78 91 Room Air 10/16/16 20:00 Room Air 10/16/16 16:31 36.8 96 20 119/69 95 Room Air 10/16/16 16:00 92 Room Air Lab Results: Results Past 24 Hours Test 10/17/16 02:05 10/17/16 04:03 10/17/16 04:43 Range/Units White Blood Count 16.05 4.8-10.8 K/uL Red Blood Count 4.06 4.7-6.1 M/uL Hemoglobin 12.2 14.0-18.0 g/dL Hematocrit 35.1 42-52 % Mean Corpuscular Volume 86.5 80-100 fL Mean Corpuscular Hemoglobin 30.0 25-34 pg Mean Corpuscular Hemoglobin Concent 34.8 32-36 g/dl Platelet Count 135 130-400 K/uL Mean Platelet Volume 9.5 7.4-10.4 fL Neutrophils (%) (Auto) 69.9 % Lymphocytes (%) (Auto) 17.4 % Monocytes (%) (Auto) 10.5 % Eosinophils (%) (Auto) 1.7 % Basophils (%) (Auto) 0.1 % Neutrophils # (Auto) 11.21 1.4-6.5 K/uL Lymphocytes # (Auto) 2.79 1.2-3.4 K/uL Monocytes # (Auto) 1.68 0.11-0.59 K/uL Eosinophils # (Auto) 0.28 0-0.5 K/uL Basophils # (Auto) 0.02 0-0.2 K/uL RDW Standard Deviation 39.9 36.4-46.3 fL RDW Coefficient of Variation 12.6 11.5-14.5 % Immature Granulocyte % (Auto) 0.4 % Immature Granulocyte # (Auto) 0.07 0.00-0.02 K/uL Activated Partial Thromboplast Time 36.9 21.0-31.0 SECONDS Partial Thromboplastin Ratio 1.4 D-Dimer 1530 0-500 ug/L FEU Sodium Level 137 136-145 mmol/L Potassium Level 3.9 3.5-5.1 mmol/L Chloride Level 101 98-107 mmol/L Carbon Dioxide Level 28 21-32 mmol/L Anion Gap 8.0 3-11 mmol/L Blood Urea Nitrogen 7 7-18 mg/dl Creatinine 0.80 0.60-1.40 mg/dl Est Creatinine Clear Calc Drug Dose 122.5 ml/min Estimated GFR () 119.0 Estimated GFR (Non- 102.7 BUN/Creatinine Ratio 9.0 10-20 Random Glucose 99 70-99 mg/dl Calcium Level 8.2 8.5-10.1 mg/dl Magnesium Level 1.5 1.8-2.4 mg/dl Total Bilirubin 1.2 0.2-1 mg/dl Aspartate Amino Transf (AST/SGOT) 21 15-37 U/L Alanine Aminotransferase (ALT/SGPT) 30 12-78 U/L Alkaline Phosphatase 93 45-117 U/L Troponin I < 0.015 0-0.045 ng/ml Pro-B-Type Natriuretic Peptide 544 0-900 pg/ml Total Protein 6.4 6.4-8.2 gm/dl Albumin 3.0 3.4-5.0 gm/dl Globulin 3.4 2.5-4.0 gm/dl Albumin/Globulin Ratio 0.9 0.9-2 Triglycerides Level 87 0-150 mg/dl Arterial Blood pH 7.43 7.35-7.45 Arterial Blood Partial Pressure CO2 45 35-46 mmHg Arterial Blood Partial Pressure O2 34 80-95 mm/Hg Arterial Blood HCO3 29 19-24 mmol/L Arterial Blood Oxygen Saturation 68.0 90-95 % Arterial Blood Base Excess 4.1 -9-1.8 mEq/L Arterial Blood Gas Delivery RA Gatito Test POS POS Bedside Glucose 123 70-99 mg/dl Microbiology Results 10/17/16 Blood Culture, Received Pending 10/17/16 Blood Culture, Received Pending
[2016-10-16] MEDS ORDERED: THIAMINE HCL INJ 100 MG in SODIUM CHLORIDE 0.9% 50ML 50 ML IV STA (23:55)
[2016-10-16] MEDS ORDERED: MULTIVITAMIN TAB PO ONE (23:55)
[2016-10-17] VITALS (9 sets, daily range): BP systolic 120–137; BP diastolic 71–85; PULSE 85–102; TEMP 36.7–37; O2SAT 86–99
[2016-10-17] MEDS ORDERED: GABAPENTIN 600 MG TAB PO SCH
[2016-10-17] MEDS ORDERED: GABAPENTIN 1200MG LOADING DOSE PO SCH (00:15)
[2016-10-17] MEDS ORDERED: LORAZEPAM INJ 1 MG in SYRINGE 0.5 ML IV PRN (00:45)
[2016-10-17] MEDS: LACTATED RINGER'S 1000ML 1,000 ML IV SCH (00:52)
[2016-10-17 02:15] LABS: BASO % 0.1 %; BASO ABS # 0.02 K/uL (0-0.2); COMPLETE YES; EOS % 1.7 %; HEMATOCRIT 35.1 % (42-52); IG% 0.4 %; LYMPH % 17.4 %; LYMPH ABS # 2.79 K/uL (1.2-3.4); MEAN CELL VOLUME 86.5 fL (80-100); MEAN CORPUSCULAR HGB CONC 34.8 g/dl (32-36); MEAN PLATELET VOLUME 9.5 fL (7.4-10.4); MONO % 10.5 %; NEUT % 69.9 %; PLATELET COUNT 135 K/uL (130-400); RED BLOOD COUNT 4.06 M/uL (4.7-6.1); WHITE BLOOD COUNT 16.05 K/uL (4.8-10.8)
[2016-10-17 02:33] LABS: ALT/SGPT 30 U/L (12-78); AST/SGOT 21 U/L (15-37); BLOOD UREA NITROGEN 7 mg/dl (7-18); CALCIUM 8.2 mg/dl (8.5-10.1); CARBON DIOXIDE 28 mmol/L (21-32); CHLORIDE 101 mmol/L (98-107); GLUCOSE 99 mg/dl (70-99); MAGNESIUM 1.5 mg/dl (1.8-2.4); POTASSIUM 3.9 mmol/L (3.5-5.1); SODIUM 137 mmol/L (136-145)
[2016-10-17 02:35] LABS: ALB/GLOB RATIO 0.9 (0.9-2); ALKALINE PHOSPHATASE 93 U/L (45-117); TRIGLYCERIDES 87 mg/dl (0-150)
[2016-10-17] MEDS: MAGNESIUM SULFATE 1GM / D5W 1 GM in PREMIXED IN D5W 100 ML IV SCH ×2 (03:22→04:22)
[2016-10-17 04:15] LABS: ARTERIAL BLOOD GAS BASE EXCESS 4.1 mEq/L (-9-1.8); ARTERIAL BLOOD GAS HCO3 29 mmol/L (19-24); ARTERIAL BLOOD GAS pH 7.43 (7.35-7.45)
[2016-10-17] MEDS ORDERED: LEVALBUTEROL/IPRATROPIUM NEB INH STA (04:16)
[2016-10-17] MEDS ORDERED: LEVALBUTEROL 1.25MG/0.5ML NEB INH STA (04:23)
[2016-10-17] MEDS ORDERED: IPRATROPIUM BROMIDE NEB SOLN 0.02% 2.5 ML VIAL INH STA (04:23)
[2016-10-17 04:28] LABS: ARTERIAL BLOOD GAS PO2 34 mm/Hg (80-95)
[2016-10-17] MEDS ORDERED: IPRATROPIUM BROMIDE NEB SOLN 0.02% 2.5 ML VIAL INH PRN (04:30)
[2016-10-17] MEDS ORDERED: LEVALBUTEROL 1.25MG/0.5ML NEB INH PRN (04:30)
[2016-10-17] MEDS ORDERED: LEVALBUTEROL/IPRATROPIUM NEB INH PRN (04:30)
[2016-10-17 04:34] LABS: PARTIAL THROMBOPLASTIN RATIO 1.4
[2016-10-17 04:46] LABS: O2 ADMINISTRATION RA
[2016-10-17 04:47] LABS: ALLEN TEST POS (POS)
[2016-10-17] MEDS ORDERED: NITROGLYCERIN 0.4 MG SL PER TAB CHARGE SL PRN (05:00)
[2016-10-17] MEDS ORDERED: LORAZEPAM 2 MG/ML 1 ML VIAL IV PRN ×2 (05:00)
[2016-10-17] MEDS ORDERED: OPTIRAY 320 IV PRN (06:15)
[2016-10-17] MEDS ORDERED: PIPERACILLIN/TAZOBACTAM 4.5 GM/100ML D5W IV STA (06:48)
[2016-10-17] MEDS ORDERED: PIPERACILL/TAZOBAC CONSULT ACTIVE PRN (07:00)
[2016-10-17] MEDS: METOCLOPRAMIDE HCL INJ 5 MG/ML 2 ML VIAL IV. SCH (07:00)
[2016-10-17] MEDS ORDERED: LACTATED RINGER'S 1000ML 1,000 ML IV ONE (07:00)
[2016-10-17] MEDS ORDERED: PIPERACILL/TAZOBAC IV 4.5 GM in DEXTROSE 5% 100ML IV ONE (07:15)
[2016-10-17] MEDS: IPRATROPIUM BROMIDE NEB SOLN 0.02% 2.5 ML VIAL INH SCH ×3 (07:41→19:03)
[2016-10-17] MEDS: LEVALBUTEROL 1.25MG/0.5ML NEB INH SCH ×3 (07:41→19:03)
[2016-10-17] MEDS: GABAPENTIN 600MG Q6H DOSE PO SCH ×2 (07:47→11:53)
[2016-10-17] MEDS ORDERED: LACTATED RINGER'S 1000ML 1,000 ML IV SCH (08:00)
--- NOTE | 2016-10-17 08:05 | DIAGNOSTIC IMAGING REPORT ---
CHEST ONE VIEW PORTABLE CLINICAL HISTORY: Hypoxia COMPARISON STUDY: 10/15/2016 FINDINGS: There is a prominent scoliosis with underlying rib deformities. The heart is mildly enlarged. Since the prior study, the patient developed bilateral airspace opacities consistent with pulmonary edema. There is minor blunting of the right lateral costophrenic angle.[ IMPRESSION: Interval development of bilateral pulmonary airspace opacities, likely representing pulmonary edema, although a bilateral inflammatory process could appear similar. Clinical and radiographic follow-up is recommended. Electronically signed by: Isma London M.D. 10/17/2016 8:03 AM Dictated Date/Time: 10/17/2016 8:02 AM
[2016-10-17] MEDS: RANITIDINE HCL 150 MG TAB PO SCH ×2 (08:18→20:14)
[2016-10-17] MEDS: ASPIRIN 81 MG ECTAB PO SCH (08:18)
[2016-10-17] MEDS: PAROXETINE 20 MG TAB PO SCH (08:18)
[2016-10-17] MEDS: ENOXAPARIN 40 MG/0.4 ML SYR SQ SCH (08:18)
--- NOTE | 2016-10-17 08:20 | DIAGNOSTIC IMAGING REPORT ---
CT ANGIOGRAM OF THE CHEST CLINICAL HISTORY: Hypoxia, bilateral pulmonary airspace opacities. Suspected pulmonary embolism. COMPARISON STUDY: Chest x-ray dated 10/17/2016 TECHNIQUE: Following the IV administration of 96 mL of Optiray-320, CT angiogram of the thorax was performed from the thoracic inlet to the lung bases utilizing the pulmonary embolus protocol. Images are reviewed in the axial, sagittal, and coronal planes. IV contrast was administered without complication. MIP imaging was performed. CT DOSE: 442.84 mGy.cm FINDINGS: No pathologically enlarged axillary mediastinal or hilar lymph nodes were visualized. There was no evidence of thoracic aortic dilatation. There were no pulmonary artery filling defects to indicate acute pulmonary embolism. There is a trace right pleural effusion. There is interstitial thickening. There are bilateral airspace opacities with an upper lung zone predominance. There are also patchy airspace opacities within the right middle lobe. There is a severe scoliosis. There are multiple chronic rib deformities. IMPRESSION: 1. No CT evidence of acute pulmonary embolism 2. Bilateral airspace opacities with upper lung zone predominance. Diagnostic considerations include multifocal pneumonia, or pulmonary edema. Clinical and imaging follow-up is recommended. Electronically signed by: Isma London M.D. 10/17/2016 8:19 AM Dictated Date/Time: 10/17/2016 8:15 AM
[2016-10-17] MEDS ORDERED: LEVALBUTEROL/IPRATROPIUM NEB INH SCH (09:00)
[2016-10-17] MEDS: PIPERACILL/TAZOBAC IV 3.375 GM in DEXTROSE 5% 100ML IV SCH ×2 (11:53→20:11)
--- NOTE | 2016-10-17 13:27 | Progress Note ---
Progress Note Events o/n noted. Pt without abdominal pain. Wolfgang clears, passing flatus. No use of narcotics overnight. Vital Signs Past 12 Hours Date Time Temp Pulse Resp B/P Pulse Ox O2 Delivery O2 Flow Rate FiO2 10/17/16 12:00 Nasal Cannula 2.0 10/17/16 11:46 36.8 85 20 123/84 96 10/17/16 07:50 Nasal Cannula 2.0 10/17/16 07:41 85 20 98 Nasal Cannula 2.0 10/17/16 06:08 36.7 88 22 126/85 98 Nasal Cannula 2.0 10/17/16 04:23 88 20 96 Nasal Cannula 2.0 10/17/16 03:00 37.0 95 20 137/80 86 Room Air Off oxygen - pulse remains same, pulse ox 96-99 Appears comfortable, but mild incr WOB Resp: Mild fine crackles throughout Abd: mild epigastric distention and tympany; non tender. 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 I have d/c'd Reglan. - He is wolfgang clears, and his pain is resolved. D/c IVF's, adv diet as tolerated. He is ok for discharge from our standpoint, but will defer to hospitalist regarding w/u and therapy of resp insufficiency and ? pneumonia. Will sign off - will arrange for outpt w/u pancreatitis, including EGD and EUS in 4-6 weeks, celiac and AIP serologies.
[2016-10-17] MEDS: KETOROLAC TROMETHAMINE 30 MG/ML VIAL IV PRN ×2 (15:20→20:11)
--- NOTE | 2016-10-17 15:31 | Progress Note ---
Medicine Progress Note Date & Time of Visit: Oct 17, 2016 at 15:13. Subjective Pt was seen and examined Lying in bed sleeping from oversedated with at bedside said that he was very drowsy this morning he ate his breakfast and went back to sleep said that pt only drank 2 glasses of alcohol on Tuesday said that pt always had that similar shaking episodes at night while sleeping Also he talks and sometimes try to reach for things while sleeping said that he was supposed to get a sleep study done, but did not get it schedule yet. Objective Last 8 Hrs Date Time Temp Pulse Resp B/P Pulse Ox O2 Delivery O2 Flow Rate FiO2 10/17/16 14:10 95 20 97 Nasal Cannula 4.0 10/17/16 12:00 Nasal Cannula 2.0 10/17/16 11:46 36.8 85 20 123/84 96 10/17/16 07:50 Nasal Cannula 2.0 10/17/16 07:41 85 20 98 Nasal Cannula 2.0 Physical Exam: General- sedated Head- atraumatic Eyes- PERRL, EOMI ENT- oropharynx clear Neck- supple, no JVD Lungs- clear to auscultation and percussion Heart- regular rhythm; no murmur Abdomen- normal bowel sounds, diffuse abdominal tenderness Extremities- no calf tenderness Neuro- sleeping due to sedation, PERRL Skin- warm & dry Laboratory Results: Last 24 Hours Test 10/17/16 02:05 10/17/16 04:03 10/17/16 04:43 White Blood Count 16.05 K/uL Red Blood Count 4.06 M/uL Hemoglobin 12.2 g/dL Hematocrit 35.1 % Mean Corpuscular Volume 86.5 fL Mean Corpuscular Hemoglobin 30.0 pg Mean Corpuscular Hemoglobin Concent 34.8 g/dl Platelet Count 135 K/uL Mean Platelet Volume 9.5 fL Neutrophils (%) (Auto) 69.9 % Lymphocytes (%) (Auto) 17.4 % Monocytes (%) (Auto) 10.5 % Eosinophils (%) (Auto) 1.7 % Basophils (%) (Auto) 0.1 % Neutrophils # (Auto) 11.21 K/uL Lymphocytes # (Auto) 2.79 K/uL Monocytes # (Auto) 1.68 K/uL Eosinophils # (Auto) 0.28 K/uL Basophils # (Auto) 0.02 K/uL RDW Standard Deviation 39.9 fL RDW Coefficient of Variation 12.6 % Immature Granulocyte % (Auto) 0.4 % Immature Granulocyte # (Auto) 0.07 K/uL Activated Partial Thromboplast Time 36.9 SECONDS Partial Thromboplastin Ratio 1.4 D-Dimer 1530 ug/L FEU Sodium Level 137 mmol/L Potassium Level 3.9 mmol/L Chloride Level 101 mmol/L Carbon Dioxide Level 28 mmol/L Anion Gap 8.0 mmol/L Blood Urea Nitrogen 7 mg/dl Creatinine 0.80 mg/dl Est Creatinine Clear Calc Drug Dose 122.5 ml/min Estimated GFR () 119.0 Estimated GFR (Non- 102.7 BUN/Creatinine Ratio 9.0 Random Glucose 99 mg/dl Calcium Level 8.2 mg/dl Magnesium Level 1.5 mg/dl Total Bilirubin 1.2 mg/dl Aspartate Amino Transf (AST/SGOT) 21 U/L Alanine Aminotransferase (ALT/SGPT) 30 U/L Alkaline Phosphatase 93 U/L Troponin I < 0.015 ng/ml Pro-B-Type Natriuretic Peptide 544 pg/ml Total Protein 6.4 gm/dl Albumin 3.0 gm/dl Globulin 3.4 gm/dl Albumin/Globulin Ratio 0.9 Triglycerides Level 87 mg/dl Arterial Blood pH 7.43 Arterial Blood Partial Pressure CO2 45 mmHg Arterial Blood Partial Pressure O2 34 mm/Hg Arterial Blood HCO3 29 mmol/L Arterial Blood Oxygen Saturation 68.0 % Arterial Blood Base Excess 4.1 mEq/L Arterial Blood Gas Delivery RA Gatito Test POS Bedside Glucose 123 mg/dl Date/Time Source Procedure Growth Status 10/17/16 07:25 Blood Blood Culture Pending Received 10/17/16 07:15 Blood Blood Culture Pending Received Assessment & Plan Acute pancreatitis CT abdomen showed infiltration of the fat surrounding the pancreatic head and descending duodenum. Elevated lipase, that is trending down Pt said last alcohol intake was on Tuesday No abdominal pain d/c IVF case discussed with Dr. Matthews, Stable to discharge from GI standpoint will need to arrange for outpt for pancreatitis, EGD and EUS in 4-6 weeks Tolerated diet well Diet advanced Bilateral airspace opacities in upper lung Possible related to pneumonia Elevated WBC Blood cx pending Was started on Zosyn, will continue for now continue oxygen supplement continue monitor Shaking movement during sleep Possible related to myoclonus vs a sleep disorder will need to get out patient sleep study Tobacco abuse. Counseling on smoking cessation GI px on PPI DVT px on Lovenox subq Code Status Full Code Consultants: Gastro Current Inpatient Medications: Current Inpatient Medications Medications (Trade) Dose Ordered Sig/Nemo Route Start Time Stop Time Status Last Admin Dose Admin Ioversol (Optiray 320) 111 ml UD PRN IV 10/15/16 17:00 10/19/16 16:59 Enoxaparin Sodium (Lovenox Inj) 40 mg Q24H SQ 10/17/16 09:00 11/16/16 08:59 10/17/16 08:18 40 MG Acetaminophen (Tylenol Tab) 650 mg Q4H PRN PO 10/15/16 22:45 11/14/16 22:44 Ketorolac Tromethamine (Toradol Inj) 30 mg Q6H PRN IV 10/15/16 22:45 10/20/16 22:44 Ondansetron HCl (Zofran Inj) 4 mg Q6H PRN IV 10/15/16 22:45 11/14/16 22:44 Aspirin (Ecotrin Tab) 81 mg QAM PO 10/16/16 08:00 11/15/16 07:59 10/17/16 08:18 81 MG Paroxetine HCl (pAXil TAB) 40 mg DAILY PO 10/16/16 08:00 11/15/16 08:59 10/17/16 08:18 40 MG Ranitidine HCl (zANTac TAB) 300 mg BID PO 10/16/16 08:00 11/15/16 07:59 10/17/16 08:18 300 MG Hydromorphone HCl (Dilaudid Inj) 0.5 mg Q3H PRN IV 10/16/16 01:00 10/30/16 00:59 10/16/16 22:44 0.5 MG Multivitamins (Multivitamin Tab) 1 tab QAM PO 10/18/16 08:00 11/17/16 07:59 Folic Acid (Folvite Tab) 1 mg QAM PO 10/18/16 08:00 11/17/16 07:59 Thiamine HCl (Vitamin B-1 Tab) 100 mg QAM PO 10/18/16 08:00 11/17/16 07:59 Gabapentin (Neurontin Tab) 1,200 mg TODAY@0015 PO 10/17/16 00:15 10/17/16 00:52 1,200 MG Gabapentin (Neurontin Tab) 600 mg Q8H PO 10/18/16 06:00 10/18/16 22:01 Gabapentin (Neurontin Tab) 600 mg Q12H PO 10/19/16 08:00 10/19/16 20:01 Gabapentin (Neurontin Tab) 600 mg Q24H PO 10/20/16 08:00 10/20/16 08:01 Ipratropium [place] (Atrovent 0.02% 0.5MG/2.5ML Neb) 0.5 mg Q4H PRN INH 10/17/16 04:30 11/16/16 04:29 Levalbuterol (Xopenex 1.25MG/ 0.5ML Neb) 1.25 mg Q4H PRN INH 10/17/16 04:30 11/16/16 04:29 Lorazepam (Ativan Inj) 3 mg Q1H PRN IV 10/17/16 05:00 11/16/16 04:59 Nitroglycerin (Nitrostat Tab) 0.4 mg UD PRN SL 10/17/16 05:00 11/16/16 04:59 Ipratropium [place] (Atrovent 0.02% 0.5MG/2.5ML Neb) 0.5 mg Q6R INH 10/17/16 09:00 11/16/16 08:59 10/17/16 14:38 0.5 MG Levalbuterol (Xopenex 1.25MG/ 0.5ML Neb) 1.25 mg Q6R INH 10/17/16 09:00 11/16/16 08:59 10/17/16 14:38 1.25 MG Ioversol (Optiray 320) 125 ml UD PRN IV 10/17/16 06:15 10/21/16 06:14 Piperacillin Sod/ Tazobactam Sod 1 ea 1 ea UD PRN N/A 10/17/16 07:00 11/16/16 06:59 Lactated Ringer's 1,000 ml @ 100 mls/hr Q10H ONCE IV 10/17/16 07:00 10/17/16 16:59 10/17/16 07:30 100 MLS/HR Piperacillin Sod/ Tazobactam Sod/ Dextrose (Zosyn Iv/D5 100ml) 115 ml @ 28.75 mls/ hr Q8H IV 10/17/16 12:00 10/24/16 11:59 10/17/16 11:53 28.75 MLS/HR
[2016-10-17] MEDS ORDERED: DOCUSATE SODIUM/SENNA 50/8.6MG TAB PO ONE (15:45)
[2016-10-18] VITALS (14 sets, daily range): BP systolic 122–161; BP diastolic 76–97; PULSE 62–99; TEMP 36.3–36.8; O2SAT 91–99
[2016-10-18] MEDS: KETOROLAC TROMETHAMINE 30 MG/ML VIAL IV PRN ×3 (02:32→16:11)
[2016-10-18] MEDS: LEVALBUTEROL 1.25MG/0.5ML NEB INH SCH ×4 (03:00→20:27)
[2016-10-18] MEDS: IPRATROPIUM BROMIDE NEB SOLN 0.02% 2.5 ML VIAL INH SCH ×4 (03:00→20:27)
[2016-10-18] MEDS: PIPERACILL/TAZOBAC IV 3.375 GM in DEXTROSE 5% 100ML IV SCH ×3 (03:50→20:11)
[2016-10-18] MEDS ORDERED: GABAPENTIN 600MG Q8H DOSE PO SCH (06:00)
[2016-10-18 07:30] LABS: HEMATOCRIT 34.6 % (42-52); MEAN CELL VOLUME 86.3 fL (80-100); MEAN CORPUSCULAR HEMOGLOBIN 29.9 pg (25-34); MEAN CORPUSCULAR HGB CONC 34.7 g/dl (32-36); MEAN PLATELET VOLUME 9.8 fL (7.4-10.4); PLATELET COUNT 152 K/uL (130-400); RED BLOOD COUNT 4.01 M/uL (4.7-6.1); WHITE BLOOD COUNT 10.95 K/uL (4.8-10.8)
[2016-10-18 07:52] LABS: BUN/CREATININE RATIO 4.2 (10-20); CALCIUM 8.3 mg/dl (8.5-10.1); CREATININE 0.79 mg/dl (0.60-1.40); POTASSIUM 3.4 mmol/L (3.5-5.1)
[2016-10-18] MEDS ORDERED: POTASSIUM CHLORIDE 20 MEQ TABCR PO ONE (08:15)
[2016-10-18] MEDS: DOCUSATE SODIUM/SENNA 50/8.6MG TAB PO SCH (08:21)
[2016-10-18] MEDS: MULTIVITAMIN TAB PO SCH (08:21)
[2016-10-18] MEDS: RANITIDINE HCL 150 MG TAB PO SCH ×2 (08:21→20:12)
[2016-10-18] MEDS: ASPIRIN 81 MG ECTAB PO SCH (08:22)
[2016-10-18] MEDS: PAROXETINE 20 MG TAB PO SCH (08:22)
[2016-10-18] MEDS: ENOXAPARIN 40 MG/0.4 ML SYR SQ SCH (08:23)
[2016-10-18] MEDS: THIAMINE HCL 100 MG TAB PO SCH (08:23)
[2016-10-18] MEDS: HYDROmorphone INJ 0.5 MG/0.5 ML SYR IV PRN ×2 (12:26→21:02)
--- NOTE | 2016-10-18 18:28 | Progress Note ---
Medicine Progress Note Date & Time of Visit: Oct 18, 2016 at 15:28. Subjective Pt was seen and examined Lying in bed comfortable with at bedside Pt and were not pleased because was treat for alcohol withdraw yesterday They felt like we thought they were lying to us because of of that. I explained to after i got the story from her yesterday morning about his symptoms I stopped the treatment for the alcohol withdraw. I told the he needs to get a sleep study to r/o any sleep disorder Pt said that he still having a lot of pain in his abdomen. He said Dilaudid is the only thing work for his pain Pt tolerated clear liquid diet He said that he does not feel good to go home today denies any chest pain, palpitation, dizziness and SOB Objective Last 8 Hrs Date Time Temp Pulse Resp B/P Pulse Ox O2 Delivery O2 Flow Rate FiO2 10/18/16 14:58 36.8 99 16 137/83 93 Room Air 10/18/16 12:00 92 Room Air 10/18/16 11:33 36.8 80 16 134/91 93 Room Air 10/18/16 08:00 92 Room Air 10/18/16 07:56 36.3 87 16 137/81 92 Room Air 10/18/16 07:31 86 18 97 Room Air Physical Exam: General- awake, no distress Head- atraumatic Eyes- PERRL, EOMI ENT- oropharynx clear Neck- supple, no JVD Lungs- clear to auscultation and percussion Heart- regular rhythm; no murmur Abdomen- normal bowel sounds, diffuse abdominal tenderness Extremities- no calf tenderness Neuro- sleeping due to sedation, PERRL Skin- warm & dry Laboratory Results: Last 24 Hours Test 10/18/16 07:10 White Blood Count 10.95 K/uL Red Blood Count 4.01 M/uL Hemoglobin 12.0 g/dL Hematocrit 34.6 % Mean Corpuscular Volume 86.3 fL Mean Corpuscular Hemoglobin 29.9 pg Mean Corpuscular Hemoglobin Concent 34.7 g/dl RDW Standard Deviation 40.2 fL RDW Coefficient of Variation 12.6 % Platelet Count 152 K/uL Mean Platelet Volume 9.8 fL Sodium Level 140 mmol/L Potassium Level 3.4 mmol/L Chloride Level 101 mmol/L Carbon Dioxide Level 30 mmol/L Anion Gap 9.0 mmol/L Blood Urea Nitrogen 3 mg/dl Creatinine 0.79 mg/dl Est Creatinine Clear Calc Drug Dose 123.2 ml/min Estimated GFR () 119.7 Estimated GFR (Non- 103.2 BUN/Creatinine Ratio 4.2 Random Glucose 89 mg/dl Calcium Level 8.3 mg/dl Assessment & Plan Acute pancreatitis CT abdomen showed infiltration of the fat surrounding the pancreatic head and descending duodenum. Elevated lipase, that is trending down Pt said last alcohol intake was on Tuesday No abdominal pain d/c IVF case discussed with Dr. Matthews, Stable to discharge from GI standpoint will need to arrange for outpatient for follow up on pancreatitis, EGD and EUS in 4-6 weeks Tolerated diet well Pt said that abdominal pain is worst today PA Prescription drug monitor continue clear liquid diet since abdominal pain is worst today Bilateral airspace opacities in upper lung Possible related to pneumonia Elevated WBC, trending down Blood cx pending Continue Zosyn continue oxygen supplement continue monitor Shaking movement during sleep Possible related to myoclonus vs a sleep disorder will need to get outpatient sleep study to r/o any sleep disorder Tobacco abuse. Counseling on smoking cessation GI px on PPI DVT px on Lovenox subq Code Status Full Code Consultants: Gastro Current Inpatient Medications: Current Inpatient Medications Medications (Trade) Dose Ordered Sig/Nemo Route Start Time Stop Time Status Last Admin Dose Admin Ioversol (Optiray 320) 111 ml UD PRN IV 10/15/16 17:00 10/19/16 16:59 Enoxaparin Sodium (Lovenox Inj) 40 mg Q24H SQ 10/17/16 09:00 11/16/16 08:59 10/18/16 08:23 40 MG Acetaminophen (Tylenol Tab) 650 mg Q4H PRN PO 10/15/16 22:45 11/14/16 22:44 Ketorolac Tromethamine (Toradol Inj) 30 mg Q6H PRN IV 10/15/16 22:45 10/20/16 22:44 10/18/16 08:29 30 MG Ondansetron HCl (Zofran Inj) 4 mg Q6H PRN IV 10/15/16 22:45 11/14/16 22:44 Aspirin (Ecotrin Tab) 81 mg QAM PO 10/16/16 08:00 11/15/16 07:59 10/18/16 08:22 81 MG Paroxetine HCl (pAXil TAB) 40 mg DAILY PO 10/16/16 08:00 11/15/16 08:59 10/18/16 08:22 40 MG Ranitidine HCl (zANTac TAB) 300 mg BID PO 10/16/16 08:00 11/15/16 07:59 10/18/16 08:21 300 MG Hydromorphone HCl (Dilaudid Inj) 0.5 mg Q3H PRN IV 10/16/16 01:00 10/30/16 00:59 Future hold 10/18/16 12:26 0.5 MG Multivitamins (Multivitamin Tab) 1 tab QAM PO 10/18/16 08:00 11/17/16 07:59 10/18/16 08:21 1 TAB Folic Acid (Folvite Tab) 1 mg QAM PO 10/18/16 08:00 11/17/16 07:59 Thiamine HCl (Vitamin B-1 Tab) 100 mg QAM PO 10/18/16 08:00 11/17/16 07:59 Ipratropium [place] (Atrovent 0.02% 0.5MG/2.5ML Neb) 0.5 mg Q4H PRN INH 10/17/16 04:30 11/16/16 04:29 Levalbuterol (Xopenex 1.25MG/ 0.5ML Neb) 1.25 mg Q4H PRN INH 10/17/16 04:30 11/16/16 04:29 Lorazepam (Ativan Inj) 3 mg Q1H PRN IV 10/17/16 05:00 11/16/16 04:59 Future Hold Nitroglycerin (Nitrostat Tab) 0.4 mg UD PRN SL 10/17/16 05:00 11/16/16 04:59 Ipratropium [place] (Atrovent 0.02% 0.5MG/2.5ML Neb) 0.5 mg Q6R INH 10/17/16 09:00 11/16/16 08:59 10/18/16 07:31 0.5 MG Levalbuterol (Xopenex 1.25MG/ 0.5ML Neb) 1.25 mg Q6R INH 10/17/16 09:00 11/16/16 08:59 10/18/16 07:31 1.25 MG Ioversol (Optiray 320) 125 ml UD PRN IV 10/17/16 06:15 10/21/16 06:14 Piperacillin Sod/ Tazobactam Sod 1 ea 1 ea UD PRN N/A 10/17/16 07:00 11/16/16 06:59 Piperacillin Sod/ Tazobactam Sod/ Dextrose (Zosyn Iv/D5 100ml) 115 ml @ 28.75 mls/ hr Q8H IV 10/17/16 12:00 10/24/16 11:59 10/18/16 12:26 28.75 MLS/HR Senna/Docusate Sodium (Senokot S Tab) 1 tab QAM PO 10/18/16 09:00 11/17/16 08:59 10/18/16 08:21 1 TAB
[2016-10-19] VITALS (8 sets, daily range): BP systolic 126–150; BP diastolic 87–92; PULSE 70–75; TEMP 36.4–36.7; O2SAT 94–96
[2016-10-19] MEDS: KETOROLAC TROMETHAMINE 30 MG/ML VIAL IV PRN ×2 (00:16→08:01)
[2016-10-19] MEDS: LEVALBUTEROL 1.25MG/0.5ML NEB INH SCH ×3 (01:37→14:16)
[2016-10-19] MEDS: IPRATROPIUM BROMIDE NEB SOLN 0.02% 2.5 ML VIAL INH SCH ×3 (01:37→14:16)
[2016-10-19] MEDS: PIPERACILL/TAZOBAC IV 3.375 GM in DEXTROSE 5% 100ML IV SCH ×2 (03:37→11:52)
[2016-10-19] MEDS: HYDROmorphone INJ 0.5 MG/0.5 ML SYR IV PRN (03:41)
[2016-10-19 07:22] LABS: BASO % 0.4 %; BASO ABS # 0.03 K/uL (0-0.2); COMPLETE YES; EOS % 7.9 %; HEMATOCRIT 37.3 % (42-52); IG% 0.4 %; LYMPH % 32.2 %; LYMPH ABS # 2.61 K/uL (1.2-3.4); MEAN CELL VOLUME 86.3 fL (80-100); MEAN CORPUSCULAR HEMOGLOBIN 30.1 pg (25-34); MEAN CORPUSCULAR HGB CONC 34.9 g/dl (32-36); MEAN PLATELET VOLUME 9.9 fL (7.4-10.4); MONO % 11.7 %; NEUT % 47.4 %; PLATELET COUNT 191 K/uL (130-400); RED BLOOD COUNT 4.32 M/uL (4.7-6.1)
[2016-10-19 07:51] LABS: CREATININE 0.85 mg/dl (0.60-1.40)
[2016-10-19] MEDS ORDERED: GABAPENTIN 600MG Q12H DOSE PO SCH (08:00)
[2016-10-19] MEDS: PAROXETINE 20 MG TAB PO SCH (08:01)
[2016-10-19] MEDS: ASPIRIN 81 MG ECTAB PO SCH (08:01)
[2016-10-19] MEDS: DOCUSATE SODIUM/SENNA 50/8.6MG TAB PO SCH (08:01)
[2016-10-19] MEDS: THIAMINE HCL 100 MG TAB PO SCH (08:01)
[2016-10-19] MEDS: MULTIVITAMIN TAB PO SCH (08:02)
[2016-10-19] MEDS: RANITIDINE HCL 150 MG TAB PO SCH (08:02)
[2016-10-19] MEDS: ENOXAPARIN 40 MG/0.4 ML SYR SQ SCH (08:02)
--- NOTE | 2016-10-19 11:56 | Progress Note ---
Medicine Progress Note Date & Time of Visit: Oct 19, 2016 at 11:48. Subjective Pt was seen and examined lying in bed very comfortable with no distress Pt said that his abdominal pain improved he said that he tolerates the clear liquid diet he said that the dilaudid help and he is the only pain med that works denies any chest pain, palpitation, dizziness and sob Objective Last 8 Hrs Date Time Temp Pulse Resp B/P Pulse Ox O2 Delivery O2 Flow Rate FiO2 10/19/16 08:00 94 Room Air 10/19/16 07:51 36.7 72 18 150/92 94 Room Air 10/19/16 07:30 75 18 96 Room Air 10/19/16 04:37 36.4 71 20 144/92 96 Room Air 10/19/16 04:00 94 Room Air Physical Exam: General- awake, no acute distress Head- atraumatic Eyes- PERRL, EOMI ENT- oropharynx clear Neck- supple, no JVD Lungs- clear to auscultation and percussion Heart- regular rhythm; no murmur Abdomen- normal bowel sounds, mild tenderness with deep palpation Extremities- no calf tenderness Neuro- sleeping due to sedation, PERRL Skin- warm & dry Laboratory Results: Last 24 Hours Test 10/19/16 06:30 White Blood Count 8.10 K/uL Red Blood Count 4.32 M/uL Hemoglobin 13.0 g/dL Hematocrit 37.3 % Mean Corpuscular Volume 86.3 fL Mean Corpuscular Hemoglobin 30.1 pg Mean Corpuscular Hemoglobin Concent 34.9 g/dl Platelet Count 191 K/uL Mean Platelet Volume 9.9 fL Neutrophils (%) (Auto) 47.4 % Lymphocytes (%) (Auto) 32.2 % Monocytes (%) (Auto) 11.7 % Eosinophils (%) (Auto) 7.9 % Basophils (%) (Auto) 0.4 % Neutrophils # (Auto) 3.84 K/uL Lymphocytes # (Auto) 2.61 K/uL Monocytes # (Auto) 0.95 K/uL Eosinophils # (Auto) 0.64 K/uL Basophils # (Auto) 0.03 K/uL RDW Standard Deviation 39.8 fL RDW Coefficient of Variation 12.6 % Immature Granulocyte % (Auto) 0.4 % Immature Granulocyte # (Auto) 0.03 K/uL Creatinine 0.85 mg/dl Est Creatinine Clear Calc Drug Dose 112.9 ml/min Estimated GFR () 116.1 Estimated GFR (Non- 100.2 Assessment & Plan Acute pancreatitis CT abdomen showed infiltration of the fat surrounding the pancreatic head and descending duodenum. Elevated lipase, that is trending down Pt said last alcohol intake was on Tuesday No abdominal pain d/c IVF case discussed with Dr. Matthews, Stable to discharge from GI standpoint will need to arrange for outpatient for follow up on pancreatitis, EGD and EUS in 4-6 weeks Tolerated diet well Pt said that abdominal pain is worst today PA Prescription drug monitor continue clear liquid diet since abdominal pain is worst today 10/19 Pain improves tolerated clear liquid diet advance diet to full liquid consider to discharge today if tolerates diet Bilateral airspace opacities in upper lung Possible related to pneumonia Elevated WBC WBC normal today Blood cx pending Continue Zosyn Saturated very well on RA will discharge on po abx Shaking movement during sleep Possible related to myoclonus vs a sleep disorder will need to get outpatient sleep study to r/o any sleep disorder Tobacco abuse. Counseling on smoking cessation GI px on PPI DVT px on Lovenox subq Code Status Full Code Consultants: Gastro Current Inpatient Medications: Current Inpatient Medications Medications (Trade) Dose Ordered Sig/Nemo Route Start Time Stop Time Status Last Admin Dose Admin Ioversol (Optiray 320) 111 ml UD PRN IV 10/15/16 17:00 10/19/16 16:59 Enoxaparin Sodium (Lovenox Inj) 40 mg Q24H SQ 10/17/16 09:00 11/16/16 08:59 10/19/16 08:02 40 MG Acetaminophen (Tylenol Tab) 650 mg Q4H PRN PO 10/15/16 22:45 11/14/16 22:44 Ketorolac Tromethamine (Toradol Inj) 30 mg Q6H PRN IV 10/15/16 22:45 10/20/16 22:44 10/19/16 08:01 30 MG Ondansetron HCl (Zofran Inj) 4 mg Q6H PRN IV 10/15/16 22:45 11/14/16 22:44 Aspirin (Ecotrin Tab) 81 mg QAM PO 10/16/16 08:00 11/15/16 07:59 10/19/16 08:01 81 MG Paroxetine HCl (pAXil TAB) 40 mg DAILY PO 10/16/16 08:00 11/15/16 08:59 10/19/16 08:01 40 MG Ranitidine HCl (zANTac TAB) 300 mg BID PO 10/16/16 08:00 11/15/16 07:59 10/19/16 08:02 300 MG Multivitamins (Multivitamin Tab) 1 tab QAM PO 10/18/16 08:00 11/17/16 07:59 10/19/16 08:02 1 TAB Folic Acid (Folvite Tab) 1 mg QAM PO 10/18/16 08:00 11/17/16 07:59 10/19/16 08:02 1 MG Thiamine HCl (Vitamin B-1 Tab) 100 mg QAM PO 10/18/16 08:00 11/17/16 07:59 10/19/16 08:01 100 MG Ipratropium [place] (Atrovent 0.02% 0.5MG/2.5ML Neb) 0.5 mg Q4H PRN INH 10/17/16 04:30 11/16/16 04:29 Levalbuterol (Xopenex 1.25MG/ 0.5ML Neb) 1.25 mg Q4H PRN INH 10/17/16 04:30 11/16/16 04:29 Lorazepam (Ativan Inj) 3 mg Q1H PRN IV 10/17/16 05:00 11/16/16 04:59 Future Hold Nitroglycerin (Nitrostat Tab) 0.4 mg UD PRN SL 10/17/16 05:00 11/16/16 04:59 Ipratropium [place] (Atrovent 0.02% 0.5MG/2.5ML Neb) 0.5 mg Q6R INH 10/17/16 09:00 11/16/16 08:59 10/19/16 07:30 0.5 MG Levalbuterol (Xopenex 1.25MG/ 0.5ML Neb) 1.25 mg Q6R INH 10/17/16 09:00 11/16/16 08:59 10/19/16 07:30 1.25 MG Ioversol (Optiray 320) 125 ml UD PRN IV 10/17/16 06:15 10/21/16 06:14 Piperacillin Sod/ Tazobactam Sod 1 ea 1 ea UD PRN N/A 10/17/16 07:00 11/16/16 06:59 Piperacillin Sod/ Tazobactam Sod/ Dextrose (Zosyn Iv/D5 100ml) 115 ml @ 28.75 mls/ hr Q8H IV 10/17/16 12:00 10/24/16 11:59 10/19/16 03:37 28.75 MLS/HR Senna/Docusate Sodium (Senokot S Tab) 1 tab QAM PO 10/18/16 09:00 11/17/16 08:59 10/19/16 08:01 1 TAB Hydromorphone HCl (Dilaudid Inj) 0.5 mg Q4HWA PRN IV 10/19/16 12:00 11/02/16 11:59 UNV
[2016-10-19] MEDS ORDERED: HYDROmorphone INJ 0.5 MG/0.5 ML SYR IV PRN (12:00)
[2016-10-19] MEDS ORDERED: LEVO1TAB33 PO (12:12)
[2016-10-19] MEDS ORDERED: OXYC-57 PO (12:15)
--- NOTE | 2016-10-19 12:29 | Discharge Instructions ---
Discharge Instructions Admission Reason for Admission: Pancreatitis Discharge Discharge Diagnosis / Problem: Acute pancreatitis, Pneumonia, Sleep disturbance , tobacco use Discharge Goals Goal(s): Decrease discomfort, Improve function, Improve disease control Activity Recommendations Activity Limitations: resume your previous activity (as tolerated) Instructions / Follow-Up Instructions / Follow-Up Please follow up with your primary care provider Dr. Sweeney on Tuesday, Oct 25 at 12:50 Please schedule follow up with Gastro for pancreatitis, EGD and EUS in 4-6 weeks complete the course of the antibiotic Arrange for a sleep study with your physician Counseling on smoking cessation . Current Hospital Diet Patient's current hospital diet: Full Liquid Diet Discharge Diet Recommended Diet: Full Liquid Diet (advanced to regular as tolerated) Pending Studies Studies pending at discharge: no Laboratory Results Lipid Panel Test 10/17/16 02:05 Range/Units Triglycerides Level 87 0-150 mg/dl Medical Emergencies . Who to Call and When: Medical Emergencies: If at any time you feel your situation is an emergency, please call 911 immediately. . Non-Emergent Contact Non-Emergency issues call your: Primary Care Provider Call Non-Emergent contact if: you have a fever, you have any medication questions . . "Provider Documentation" section prepared by Barbara Bean. VTE Core Measure Inpt VTE Proph given/why not?: Enoxaparin (Lovenox)[facility] Drug Monitoring Program Search Results: patient reviewed within database
--- NOTE | 2016-10-20 00:07 | Discharge Summary ---
Discharge Summary Admission Date: Oct 15, 2016 at 21:53 Discharge Date: Oct 19, 2016 Discharge Disposition: Home Principal Diagnosis: Acute pancreatitis Secondary Diagnoses/Problems: Acute pancreatitis, Pneumonia, Sleep disturbance, tobacco use Procedures: CC: Brina Sweeney M.D. (MEDICAL) Mariann Hurd MD End: [~ rep ct add3]] CT ABD/PELVIS IV AND ORAL CONT CLINICAL HISTORY: Severe epigastric pain COMPARISON STUDY: CT scan dated to , biliary ultrasound dated 10/15/2016. TECHNIQUE: Following the IV administration of 117 mL of Optiray-320, CT scan of the abdomen and pelvis was performed from the lung bases to the proximal femurs. Images are reviewed in the axial, sagittal, and coronal planes. IV contrast was administered without complication. CT DOSE: 803.44 mGy.cm FINDINGS: Lower chest: There is bilateral interstitial thickening, similar to the preceding study. Liver: There is hepatic steatosis. No focal masses are visualized. Gallbladder: Unremarkable. Spleen: Normal in size and attenuation. Pancreas: No focal masses are visualized. There is edema surrounding the pancreatic head and descending duodenum. The findings are consistent with pancreatitis. Correlation with appropriate biochemical markers is recommended. A duodenitis or groove pancreatitis could appear similar Adrenal glands: Unremarkable. Kidneys: There is symmetric renal cortical enhancement. The kidneys are normal in size without hydronephrosis. Bowel: There are no transition zones indicate bowel obstruction. There is colonic diverticulosis. There are no acute peridiverticular inflammatory changes. There were no findings to indicate acute appendicitis. The appendix is however not visualized with certainty. Peritoneum: There is no intraperitoneal free air or abdominal ascites. Vasculature: The abdominal aorta is normal in course and caliber. Adenopathy: None. Pelvic viscera: The bladder, and pelvic viscera are unremarkable. Skeletal structures: There is a severe scoliosis. Postsurgical changes are present within the spine. IMPRESSION: 1. Infiltration of the fat surrounding the pancreatic head and descending duodenum. The findings likely represent pancreatitis. Correlation with appropriate biochemical markers is recommended 2. No evidence of bowel obstruction. No evidence of free air Electronically signed by: Isma London M.D Consultations: Gastro Medication Reconciliation New Medications: Levofloxacin (Levaquin) 500 Mg Tab 750 MG PO DAILY for 5 Days, TAB Oxycodone/Acetaminophen 5MG/325MG (Percocet 5MG/325MG) Tab 1 TAB PO TID for 5 Days, #15 TAB PAIN Continued Medications: Albuterol Soln (Ventolin Soln) 0.083 % Neb 1 AMP INH Q4HR PRN, #1 BOX PRN SHORTNESS OF BREATH/WHEEZING Albuterol Sulfate (Proair Hfa) 108 Mcg/ Aer 2 PUFFS INH QID Amitriptyline Hcl (Amitriptyline Hcl) 50 Mg Tab 50 MG PO HS, TAB Aspirin (Aspirin Chewable) 81 Mg Chew 81 MG PO DAILY Fish Oil ([place]-3) Oil 2 CAP PO DAILY, CAP Paroxetine Hcl (Paxil) 40 Mg Tab 40 MG PO DAILY, TAB Pravastatin Sod (Pravastatin Sodium) 40 Mg Tab 40 MG PO HS Ranitidine Hcl (Zantac) 300 Mg Tab 300 MG PO BID, TAB Sumatriptan Succinate (Imitrex) 50 Mg Tab 50 MG PO PRN, TAB Discontinued Medications: Doxycycline Monohydrate (Monodox) 100 Mg Cap 100 MG PO BID, #20 CAP Admission Information HPI (per Admitting provider): Medical history significant for hypertension, hyperlipidemia, asthma, past tobacco abuse. Recent confinement October 2012 for complicated UTI. One-day history of epigastric pain with nausea, dry heaving, good bowel movement. No chest pain, no shortness of breath, no fever, no chills. Last alcohol intake was a few days ago. Denies excessive alcohol intake. Patient brought to the Emergency Room Physical Exam (per Admitting): VITAL SIGNS: Blood pressure was noted to be 115/68, pulse rate 85, RR 20, temperature 36.7, sats 98RA GENERAL: Obese. SKIN : normal color. HEENT: [place] palpebral conjunctivae. Dry mucosa. NECK: No JVD. supple CHEST: Clear to auscultation. HEART: Regular rate and rhythm. ABDOMEN: Epigastric tenderness. EXTREMITIES: No edema, no tenderness. NEUROLOGIC: No gross focality. Hospital Course Acute pancreatitis CT abdomen showed infiltration of the fat surrounding the pancreatic head and descending duodenum. Elevated lipase, that is trending down Pt said last alcohol intake was on Tuesday No abdominal pain d/c IVF case discussed with Dr. Matthews, Stable to discharge from GI standpoint will need to arrange for outpatient for follow up on pancreatitis, EGD and EUS in 4-6 weeks Tolerated diet well Pt said that abdominal pain is worst today [place] Prescription drug monitor continue clear liquid diet since abdominal pain is worst today 10/19 Pain improves tolerated clear liquid diet advance diet to full liquid consider to discharge today if tolerates diet Bilateral airspace opacities in upper lung Possible related to pneumonia Elevated WBC WBC normal today Blood cx pending Continue Zosyn Saturated very well on RA will discharge on po abx Shaking movement during sleep Possible related to myoclonus vs a sleep disorder will need to get outpatient sleep study to r/o any sleep disorder Tobacco abuse. Counseling on smoking cessation GI px on PPI DVT px on Lovenox subq Code Status Full Code Total time spent on discharge = 35 minutes This includes examination of the patient, discharge planning, medication reconciliation, and communication with other providers. Discharge Instructions Discharge Instructions Admission Reason for Admission: Pancreatitis Discharge Discharge Diagnosis / Problem: Acute pancreatitis, Pneumonia, Sleep disturbance , tobacco use Discharge Goals Goal(s): Decrease discomfort, Improve function, Improve disease control Activity Recommendations Activity Limitations: resume your previous activity (as tolerated) Instructions / Follow-Up Instructions / Follow-Up Please follow up with your primary care provider Dr. Sweeney on Tuesday, Oct 25 at 12:50 Please schedule follow up with Gastro for pancreatitis, EGD and EUS in 4-6 weeks complete the course of the antibiotic Arrange for a sleep study with your physician Counseling on smoking cessation . Current Hospital Diet Patient's current hospital diet: Full Liquid Diet Discharge Diet Recommended Diet: Full Liquid Diet (advanced to regular as tolerated) Pending Studies Studies pending at discharge: no Laboratory Results Lipid Panel Test 10/17/16 02:05 Range/Units Triglycerides Level 87 0-150 mg/dl Medical Emergencies . Who to Call and When: Medical Emergencies: If at any time you feel your situation is an emergency, please call 911 immediately. . Non-Emergent Contact Non-Emergency issues call your: Primary Care Provider Call Non-Emergent contact if: you have a fever, you have any medication questions . . "Provider Documentation" section prepared by Barbara Bean. VTE Core Measure Inpt VTE Proph given/why not?: Enoxaparin (Lovenox)[facility] Drug Monitoring Program Search Results: patient reviewed within database Additional Copies To Brina Sweeney M.D. (MEDICAL)
[2016-10-20] MEDS ORDERED: GABAPENTIN 600MG X1 DOSE PO SCH (08:00)
[2017-01-28] MEDS ORDERED: AZIT250T5 PO (14:43)
== END 2016-10-19 16:05 | disposition home or self-care (01) | DRG 438 ==
LOC: ENRESERVTM → ENRESERVDT → C.EDB 16:08 → C.MS4W 21:53 → C.MED 10-17 06:12
PROVIDERS: ADMIT Internal Medicine; ATTEND Internal Medicine
DX: K85.90 Acute pancreatitis without necrosis or infection, unspecified (principal); J18.9 Pneumonia, unspecified organism; J80 Acute respiratory distress syndrome; F10.239 Alcohol dependence with withdrawal, unspecified; J45.909 Unspecified asthma, uncomplicated; E78.5 Hyperlipidemia, unspecified; M41.9 Scoliosis, unspecified; Z72.0 Tobacco use; I10 Essential (primary) hypertension; F32.9 Major depressive disorder, single episode, unspecified; K21.9 Gastro-esophageal reflux disease without esophagitis; G43.909 Migraine, unspecified, not intractable, without status migrainosus; M54.9 Dorsalgia, unspecified; G89.29 Other chronic pain; G47.9 Sleep disorder, unspecified; G25.3 Myoclonus; Z79.82 Long term (current) use of aspirin; Z79.899 Other long term (current) drug therapy

== ENCOUNTER 2016-11-19 11:23 | Day surgery (SDC) | payer OTHER ==
[2016-11-04 16:16] VITALS: BMI 29.0
--- NOTE | 2016-11-09 15:00 | DIAGNOSTIC IMAGING REPORT ---
CHEST 2 VIEWS ROUTINE CLINICAL HISTORY: PRE-OP COMPARISON STUDY: 10/15/2016 FINDINGS: Improved exam. Chronic deformity of the chest. There is a scoliosis of the thoracic spine. Lungs are clear. IMPRESSION: Chronic change. No acute process. Electronically signed by: Sergey Levine M.D. 11/09/2016 2:59 PM Dictated Date/Time: 11/09/2016 2:58 PM
[~2016-11-19] VITALS: Ht 177.8 cm; Wt 92.0 kg
[~2016-11-19 11:23] MED LIST changes: +ASPCH81X PO; -ASPI-113 PO; -DOXY100C76 PO; +LACTATED RINGER'S 1000ML 1,000 ML IV SCH
[2016-11-19] MEDS ORDERED: FLVHFA110 INH (11:44)
[2016-11-19 11:46] VITALS: BP 145/86; PULSE 99; TEMP 36.6; O2SAT 95; Ht 177.8 cm; Wt 92.0 kg
[2016-11-19] MEDS ORDERED: LACTATED RINGER'S 1000ML 1,000 ML IV ONE (12:13)
--- NOTE | 2016-11-19 12:17 | Endo History and Physical ---
History & Physical Date of Service: Nov 19, 2016. Chief Complaint: History of pancreatitis Referring Physician: Dr. Alatorre History of Present Illness History of acute pancreatitis for eus today. No nausea, vomitting since dc. Imagning during hospital stay was negative. Past Surgical History Hx Cardiac Surgery: No Hx Abdominal Surgery: No Hx Post-Op Nausea and Vomiting: No Hx Cancer Surgery: No Hx Thoracic Surgery: No Hx Orthopedic: Yes (BACK SURGERY X2 (SCOLIOSIS)) Hx Urinary Tract Surgery: Yes (LITHO, STENT PLACEMENT) Social History Smoking Status: Former Smoker Hx Substance Use: No Hx Alcohol Use: Yes (RECENTLY QUIT SEP 2016, HX OF OCC USE PER PT 1-2 WEEKLY) Allergies Coded Allergies: No Known Allergies (Unverified , 11/19/16) Current Medications Reported Home Medications Medications Dose Route/Sig Max Daily Dose Days Date Category Dose Instructions Flovent Hfa (Fluticasone Propionate) 120 Puffs/34093 Mcg Aero 2 Puffs INH DAILY 30 11/19/16 Reported Aspirin Chewable (Aspirin) 81 Mg Chew 81 Mg PO DAILY 10/15/16 Reported Pravastatin Sodium (Pravastatin Sod) 40 Mg Tab 40 Mg PO HS 09/26/16 Reported Proair Hfa (Albuterol Sulfate) 108 Mcg/ Aer 2 Puffs INH DAILY 11/03/12 Reported [place]-3 (Fish Oil) Oil 2 Cap PO DAILY 11/02/12 Reported Imitrex (Sumatriptan Succinate) 50 Mg Tab 50 Mg PO PRN 11/02/12 Reported Ventolin Soln (Albuterol Soln) 0.083 % Neb 1 Amp INH Q4HR PRN 11/02/12 Reported PRN SHORTNESS OF BREATH/WHEEZING Zantac (Ranitidine Hcl) 300 Mg Tab 300 Mg PO BID 11/02/12 Reported Amitriptyline Hcl 50 Mg Tab 50 Mg PO HS 11/02/12 Reported Paxil (Paroxetine Hcl) 40 Mg Tab 40 Mg PO DAILY 11/02/12 Reported Vital Signs Weight (Kilograms): 92 Height (Feet): 5 Height (Inches): 10 Date Time Temp Pulse Resp B/P Pulse Ox O2 Delivery O2 Flow Rate FiO2 11/19/16 11:46 36.6 99 18 145/86 95 Room Air Physical Exam General Appearance: no apparent distress Respiratory/Chest: Auscultation: breath sounds normal Cardiovascular: Heart Auscultation: RRR Abdomen: Inspection & Palpation: soft Assessment and Plan History of acute pancreatitis thought related to ETOH abuse, we will plan for EGD / EUS today. If gallstones found in CBD will plan for ERCP today as well. We have discussed the risks to include bleeding, infection, peforaion, pain, pancreatitis, and failed cannulation. Plan EGD / EUS ERCP if found to have CBD stones
[2016-11-19] MEDS ORDERED: LIDOCAINE HCL 2% 2 ML VIAL (20MG/ML) ONE (12:34)
[2016-11-19] MEDS ORDERED: ONDANSETRON INJ 2 MG/ML 2 ML VIAL ONE (12:34)
[2016-11-19] MEDS ORDERED: PROPOFOL IV EMULSION 10 MG/ML 20 ML VIAL IV ONE (12:34)
[2016-11-19] MEDS ORDERED: DEXAMETHASONE SOD INJ 4 MG/ML VIAL ONE (12:34)
[2016-11-19] MEDS ORDERED: MIDAZOLAM HCL 1 MG/ML 2ML VIAL ONE (12:35)
[2016-11-19] MEDS ORDERED: FENTANYL CITRATE INJ 50 MCG/1 ML 2 ML VIAL ONE (12:35)
--- NOTE | 2016-11-19 13:06 | GI REPORT ---
Procedure Date: 11/19/2016 12:38 PM Procedure: Upper GI endoscopy Indications: Epigastric abdominal pain, Abnormal CT of the GI tract Medicines: Monitored Anesthesia Care Complications: No immediate complications. Estimated blood loss: Minimal. Estimated Blood Loss: Estimated blood loss was minimal. Procedure: Pre-Anesthesia Assessment: - Prior to the procedure, a History and Physical was performed, and patient medications, allergies and sensitivities were reviewed. The patient's tolerance of previous anesthesia was reviewed. - The risks and benefits of the procedure and the sedation options and risks were discussed with the patient. All questions were answered and informed consent was obtained. - Patient identification and proposed procedure were verified prior to the procedure by the physician, the nurse and the pulpwood buyer. The procedure was verified in the procedure room. - Pre-procedure physical examination revealed no contraindications to sedation. - ASA Grade Assessment: II - A patient with mild systemic disease. - After reviewing the risks and benefits, the patient was deemed in satisfactory condition to undergo the procedure. - The anesthesia plan was to use general anesthesia. - Immediately prior to administration of medications, the patient was re-assessed for adequacy to receive sedatives. - The heart rate, respiratory rate, oxygen saturations, blood pressure, adequacy of pulmonary ventilation, and response to care were monitored throughout the procedure. - The physical status of the patient was re-assessed after the procedure. After obtaining informed consent, the endoscope was passed under direct vision. Throughout the procedure, the patient's blood pressure, pulse, and oxygen saturations were monitored continuously. The Scope was introduced through the mouth, and advanced to the third part of duodenum. The upper GI endoscopy was accomplished without difficulty. The patient tolerated the procedure well. Findings: The examined esophagus was normal. The Z-line was regular and was found 38 cm from the incisors. Diffuse moderate inflammation characterized by congestion (edema), erythema and granularity was found in the entire examined stomach. Biopsies were taken with a cold forceps for histology. Estimated blood loss was minimal. The examined duodenum was normal. Impression: - Normal esophagus. - Z-line regular, 38 cm from the incisors. - Diffuse gastritis. Biopsied. - Normal examined duodenum. Recommendation: - Perform an upper endoscopic ultrasound (UEUS) today. - Await pathology results. Di Hubbard D.O. Di Hubbard, 11/19/2016 1:06:13 PM This report has been signed electronically. Note Initiated On: 11/19/2016 12:38 PM I attest to the content of the Intraoperative Record and orders documented therein, exceptions below
--- NOTE | 2016-11-19 13:35 | GI REPORT ---
Procedure Date: 11/19/2016 12:39 PM Procedure: Upper EUS Indications: Acute pancreatitis Medicines: Monitored Anesthesia Care Complications: No immediate complications. Estimated blood loss: Minimal. Estimated Blood Loss: Estimated blood loss was minimal. Procedure: Pre-Anesthesia Assessment: - Prior to the procedure, a History and Physical was performed, and patient medications, allergies and sensitivities were reviewed. The patient's tolerance of previous anesthesia was reviewed. - The risks and benefits of the procedure and the sedation options and risks were discussed with the patient. All questions were answered and informed consent was obtained. - Patient identification and proposed procedure were verified prior to the procedure by the physician, the nurse and the electric motor repairman. The procedure was verified in the procedure room. - Pre-procedure physical examination revealed no contraindications to sedation. - ASA Grade Assessment: II - A patient with mild systemic disease. - After reviewing the risks and benefits, the patient was deemed in satisfactory condition to undergo the procedure. - The anesthesia plan was to use general anesthesia. - Immediately prior to administration of medications, the patient was re-assessed for adequacy to receive sedatives. - The heart rate, respiratory rate, oxygen saturations, blood pressure, adequacy of pulmonary ventilation, and response to care were monitored throughout the procedure. - The physical status of the patient was re-assessed after the procedure. After obtaining informed consent, the endoscope was passed under direct vision. Throughout the procedure, the patient's blood pressure, pulse, and oxygen saturations were monitored continuously. The Endosonoscope was introduced through the mouth, and advanced to the second part of duodenum. The upper EUS was accomplished without difficulty. The patient tolerated the procedure well. Findings: Endosonographic Finding : There was no sign of significant endosonographic abnormality in the ampulla. No masses were identified. There was no sign of significant endosonographic abnormality in the gallbladder. No stones and no biliary sludge were identified. The gallbladder wall was 1 mm in thickness. There was no sign of significant endosonographic abnormality in the common bile duct. No stones, no biliary sludge and ducts of normal caliber were identified. The CBD measured 2.4 to 3 mm. There was abnormal echogenicity in the entire examined liver. This area was hyperechoic. There was no sign of significant endosonographic abnormality in the entire pancreas. No pathologic lymphadenopathy, no masses, no cysts, the pancreatic duct was thin in caliber. No lymphadenopathy seen. There was no sign of significant endosonographic abnormality in the visualized portion of the left adrenal gland. No adrenal gland enlargement was identified. Impression: - Normal ampulla. - Normal gallbladder. - 2-3 mm common bile duct. - Fatty infiltration of the liver. - Normal pancreas. - Normal left adrenal. Recommendation: - Discharge patient to home (ambulatory). - Advance diet as tolerated today. - Observe patient's clinical course. No evidence of gallstones or sludge seen on today's examination. - Return to GI clinic PRN. Di Hubbard D.O. Di Hubbard, 11/19/2016 1:35:35 PM This report has been signed electronically. Note Initiated On: 11/19/2016 12:39 PM I attest to the content of the Intraoperative Record and orders documented therein, exceptions below
[2016-11-19] MEDS ORDERED: ONDANSETRON INJ 2 MG/ML 2 ML VIAL IV PRN ×2 (13:45)
[2016-11-19] MEDS ORDERED: ATROPINE SULFATE 0.1 MG/ML 5ML SYR IV PRN (13:45)
[2016-11-19] MEDS ORDERED: FENTANYL CITRATE INJ 50 MCG/1 ML 2 ML VIAL IV PRN (13:45)
--- NOTE | 2016-11-19 13:45 | [facility] Post Operative Brief Note ---
Immediate Operative Summary Operative Date Nov 19, 2016. Pre-Operative Diagnosis Acute Pancreatitis Post-Operative Diagnosis Gastritis Fatty Liver Normal pancreas Procedure(s) Performed Esophagogastroduodenoscopy and Upper Endoscopic Ultrasonography Surgeon Dr. Di Hubbard Slusher Operator Surgeon(s) None Estimated Blood Loss Zero Findings diffuse gastritis Fatty liver Normal pancreas No gallstones or biliary sludge seen Specimens A: gastric biopsies Anesthesia General Complication(s) None Disposition Recovery Room / PACU
--- NOTE | 2016-11-19 13:46 | Discharge Instructions ---
Endoscopy Patient Instructions Date / Procedure(s) Performed Nov 19, 2016. EGD, Other (Endoscopic ultrasound) Allergy Information Coded Allergies: No Known Allergies (Unverified , 11/19/16) Discharge Date / Findings Nov 19, 2016. Diffuse gastritis Fatty infiltration of the liver Medication Instructions Reported Home Medications Medications Dose Route/Sig Max Daily Dose Days Date Category Dose Instructions Flovent Hfa (Fluticasone Propionate) 120 Puffs/14795 Mcg Aero 2 Puffs INH DAILY 30 11/19/16 Reported Aspirin Chewable (Aspirin) 81 Mg Chew 81 Mg PO DAILY 10/15/16 Reported Pravastatin Sodium (Pravastatin Sod) 40 Mg Tab 40 Mg PO HS 09/26/16 Reported Proair Hfa (Albuterol Sulfate) 108 Mcg/ Aer 2 Puffs INH DAILY 11/03/12 Reported Orrum-3 (Fish Oil) Oil 2 Cap PO DAILY 11/02/12 Reported Imitrex (Sumatriptan Succinate) 50 Mg Tab 50 Mg PO PRN 11/02/12 Reported Ventolin Soln (Albuterol Soln) 0.083 % Neb 1 Amp INH Q4HR PRN 11/02/12 Reported PRN SHORTNESS OF BREATH/WHEEZING Zantac (Ranitidine Hcl) 300 Mg Tab 300 Mg PO BID 11/02/12 Reported Amitriptyline Hcl 50 Mg Tab 50 Mg PO HS 11/02/12 Reported Paxil (Paroxetine Hcl) 40 Mg Tab 40 Mg PO DAILY 11/02/12 Reported Provider Instructions Activity Restrictions - No exercising or heavy lifting for 24 hours. - Do not drink alcohol the day of the procedure. - Do not drive a car or operate machinery until the day after the procedure. - Do not make any important decisions or sign important papers in 24 hours after the procedure. Following Day: - Return to full activity which may include returning to work/school. Diet Start your diet with liquids and light foods (jello, soup, juice, toast). Then eat your usual diet if not nauseated. Treatment For Common After Affects For mild abdominal pain, bloating, or excessive gas: - Rest - Eat lightly - Lie on right side Follow-Up Information Follow-up with Dr. Sweeney as scheduled Gastritis likely related to a medation (paxil). Avoid alcohol consumption. Anesthesia Information What You Should Know You have had a procedure that required some medicine to reduce anxiety and discomfort. This treatment is called moderate sedation. After receiving the treatment, you may be sleepy, but you will be able to breathe on your own. The effects of the treatment may last for several hours. Follow these instructions along with Activity/Diet recommendations noted above: * Do NOT do anything where dizziness or clumsiness would be dangerous. * Rest quietly at home today, then you can be up and about tomorrow. * Have a responsible person stay with you the rest of today. * You may have had an I.V. today. If so, you may take the dressing off later today. Recommendations Call your doctor if: * Trouble breathing * Continuous vomiting for more than 24 hours * Temperature above 101 degrees * Severe abdominal pain or bloating * Pain not relieved by pain medicine ordered * There is increased drainage or redness from any incision * A large amount of rectal bleeding greater than 2-3 tablespoons. (If you had a polyp/s removed or have hemorrhoids, a small amount of blood - from the rectum is to be expected.) * You have any unanswered questions or concerns. IN THE EVENT OF A SERIOUS EMERGENCY, GO TO THE NEAREST EMERGENCY ROOM Your discharge instructions were prepared by provider Di Hubbard. Patient Instructions Signature Page Anuel Winchester Patient (or Guardian) Signature/Date: I have read and understand the instructions given to me by my caregivers. Caregiver/RN/Doctor Signature/Date: The above-named patient and/or guardian has received patient instructions on this date. + Original Patient Signature Page (only) stays with chart. Please make copy for patient.
--- NOTE | 2016-11-19 14:07 | Anesthesiology Progress Note ---
Anesthesia Post Op Note Date & Time Nov 19, 2016 at 14:06 Vital Signs Pain Intensity: 0 Vital Signs Past 12 Hours Date Time Temp Pulse Resp B/P Pulse Ox O2 Delivery O2 Flow Rate FiO2 11/19/16 14:00 80 17 11/19/16 14:00 78 17 95 11/19/16 13:59 105/75 11/19/16 13:55 82 18 11/19/16 13:55 77 18 93 11/19/16 13:54 78 16 11/19/16 13:54 78 16 11/19/16 13:54 78 16 116/77 95 11/19/16 13:54 78 16 116/77 95 11/19/16 13:49 84 23 11/19/16 13:49 85 23 103/71 95 11/19/16 13:49 85 23 103/71 95 11/19/16 13:49 84 23 11/19/16 13:44 86 15 105/80 100 11/19/16 13:44 85 15 11/19/16 13:44 85 15 11/19/16 13:44 36.2 81 16 101/77 98 Mask 10 11/19/16 13:44 86 15 105/80 100 11/19/16 11:46 36.6 99 18 145/86 95 Room Air Notes Mental Status: alert / awake / arousable, participated in evaluation Pt Amnestic to Procedure: Yes Nausea / Vomiting: adequately controlled Pain: adequately controlled Airway Patency, RR, SpO2: stable & adequate BP & HR: stable & adequate Hydration State: stable & adequate Anesthetic Complications: no major complications apparent
[2016-11-19 14:15] VITALS: BP 133/74; PULSE 73; TEMP 36.5; O2SAT 93
[2016-11-19 14:45] VITALS: BP 122/83; PULSE 76; O2SAT 94
[2016-11-19 15:05] VITALS: BP 116/81; PULSE 81; TEMP 36.4; O2SAT 96
[2017-01-28] MEDS ORDERED: AZIT250T5 PO (14:43)
[2017-02-02] MEDS ORDERED: LVQ500 PO (15:19)
[2017-02-02] MEDS ORDERED: PRED10TA PO (15:19)
== END 2016-11-19 15:05 | disposition home or self-care (01) ==
LOC: C.ACU 11:23
PROVIDERS: ATTEND Internal Medicine Gastroenterology
DX: K29.70 Gastritis, unspecified, without bleeding (principal); B96.81 Helicobacter pylori [H. pylori] as the cause of diseases classified elsewhere; K85.90 Acute pancreatitis without necrosis or infection, unspecified; Z98.890 Other specified postprocedural states; Z87.891 Personal history of nicotine dependence; Z79.82 Long term (current) use of aspirin

== ENCOUNTER 2017-01-28 10:49 | Inpatient (IN) | payer OTHER ==
[~2017-01-28] VITALS: Ht 175.3 cm; Wt 91.2 kg
[~2017-01-28 10:49] MED LIST changes: +FLVHFA110 INH; -LACTATED RINGER'S 1000ML 1,000 ML IV SCH
[2017-01-28] MEDS ORDERED: SODIUM CHLORIDE 0.9% 1000ML 1,000 ML IV STA ×2 (11:06→11:20)
[2017-01-28] MEDS ORDERED: PIPERACILLIN/TAZOBACTAM 4.5 GM/100ML D5W IV STA (11:16)
[2017-01-28] MEDS ORDERED: ALBUT/IPRATROP 3MG/0.5MG NEB 3 ML VIAL INH STA (11:16)
[2017-01-28] MEDS ORDERED: METHYLPREDNISOLONE 125 MG VIAL IV STA (11:16)
[2017-01-28] MEDS ORDERED: LEVAQUIN 750MG / 150ML D5W IV STA (11:16)
[2017-01-28] MEDS ORDERED: METHYLPREDNISOLONE 125 MG VIAL ONE (11:20)
[2017-01-28] MEDS ORDERED: ONDANSETRON INJ 2 MG/ML 2 ML VIAL ONE (11:36)
[2017-01-28 11:39] LABS: HEMATOCRIT 44.4 % (42-52); MEAN CELL VOLUME 88.4 fL (80-100); MEAN CORPUSCULAR HEMOGLOBIN 29.1 pg (25-34); MEAN CORPUSCULAR HGB CONC 32.9 g/dl (32-36); MEAN PLATELET VOLUME 9.7 fL (7.4-10.4); PLATELET COUNT 218 K/uL (130-400); RED BLOOD COUNT 5.02 M/uL (4.7-6.1); WHITE BLOOD COUNT 9.51 K/uL (4.8-10.8)
[2017-01-28] MEDS ORDERED: OMEG10007 PO (11:42)
[2017-01-28] MEDS: MoRPHine SULFATE 4 MG/ML 1 ML CARP\\VIAL IV PRN ×3 (11:44→14:48)
[2017-01-28 11:48] LABS: INR 1.1 (0.9-1.1); PARTIAL THROMBOPLASTIN RATIO 1.2; PROTHROMBIN TIME (PATIENT) 11.3 SECONDS (9.0-12.0)
[2017-01-28 11:59] LABS: ALT/SGPT 26 U/L (12-78); AST/SGOT 26 U/L (15-37); BLOOD UREA NITROGEN 14 mg/dl (7-18); CALCIUM 8.6 mg/dl (8.5-10.1); CARBON DIOXIDE 29 mmol/L (21-32); CHLORIDE 100 mmol/L (98-107); CREATININE 0.87 mg/dl (0.60-1.40); GLUCOSE 97 mg/dl (70-99); MAGNESIUM 1.6 mg/dl (1.8-2.4); POTASSIUM 3.6 mmol/L (3.5-5.1); SODIUM 136 mmol/L (136-145)
[2017-01-28 12:09] LABS: BASO % 0.1 %; BASO ABS # 0.01 K/uL (0-0.2); COMPLETE YES; IG% 0.2 %; LYMPH % 13.4 %; LYMPH ABS # 1.27 K/uL (1.2-3.4); MONO % 10.2 %; NEUT % 76.1 %
[2017-01-28 12:10] LABS: ALKALINE PHOSPHATASE 108 U/L (45-117)
--- NOTE | 2017-01-28 12:24 | DIAGNOSTIC IMAGING REPORT ---
CHEST ONE VIEW PORTABLE CLINICAL HISTORY: cough, fever dyspnea COMPARISON STUDY: 11/09/2016 FINDINGS: Interval development of diffuse left hemithoracic and right apical infiltrates. Mild infiltrative change right base. Thoracic scoliosis. Diaphragms smooth. IMPRESSION: Diffuse bilateral parenchymal infiltrates Electronically signed by: Sergey Levine M.D. 01/28/2017 12:23 PM Dictated Date/Time: 01/28/2017 12:22 PM
[2017-01-28 14:08] LABS: URINE APPEARANCE CLEAR (CLEAR); URINE BILIRUBIN NEG (NEG); URINE COLOR YELLOW; URINE EPITHELIAL CELL AUTO 0-5 /lpf (0-5); URINE NITRITE NEG (NEG); URINE PH 5.5 (4.5-7.5); URINE SPECIFIC GRAVITY 1.018 (1.000-1.030); UROBILINOGEN NEG (NEG)
[2017-01-28 14:14] LABS: MANUAL MICROSCOPIC REQUIRED? NO; REVIEW REQ? NO
[2017-01-28] MEDS ORDERED: ONDANSETRON INJ 2 MG/ML 2 ML VIAL IV PRN (14:30)
[2017-01-28] MEDS ORDERED: NITROGLYCERIN 0.4 MG SL PER TAB CHARGE SL PRN (14:30)
[2017-01-28] MEDS ORDERED: ACETAMINOPHEN 325 MG TAB PO PRN (14:30)
[2017-01-28] MEDS ORDERED: ASPI325T4 PO (14:43)
[2017-01-28] MEDS ORDERED: ALBUAER INH (14:43)
[2017-01-28] MEDS ORDERED: PRED10TA PO (14:43)
[2017-01-28] MEDS ORDERED: AZIT-60 PO (14:43)
[2017-01-28] MEDS ORDERED: IPRASOL4 INH (14:43)
[2017-01-28] MEDS ORDERED: RANI300C PO (14:43)
[2017-01-28] MEDS ORDERED: SUMATRIPTAN SUCCINATE 50 MG TAB PO PRN (14:45)
[2017-01-28] MEDS ORDERED: LEVALBUTEROL/IPRATROPIUM NEB INH SCH (15:00)
--- NOTE | 2017-01-28 15:10 | History and Physical ---
History & Physical Date & Time of Service: January 28, 2017 at 14:50 Chief Complaint: Pneumonia, Sob Primary Care Physician: Brina Sweeney M.D. (MEDICAL) History of Present Illness Source: patient This is a 51 y/o male with PMHx of asthma, tobacco use, Dyslipidemia and other problems as outlined below who presents to the ED c/o worsening SOB x 5 days. Pt reports that 5 days ago he developed fevers, runny nose, sore throat and productive cough. He was seen by his PCP the following day who started Z-pack and Prednisone taper for suspected pneumonitis. Pt has been taking the medication along with his inhalers with no relief. This morning pts breathing got significantly worse and he developed wheezing. Pt has a history of asthma and he is a lifelong smoker. Pt denies diaphoresis, chest pain, abd pain, N/V, bowel or bladder issues, LE edema, calf pain, lightheadedness/dizziness. In the ED, pt is febrile, tachy and hypoxic on room air. No leukocytosis. Mag 1.6. CXR bilateral infiltrates. Pt is stable and will be admitted for further evaluation and treatment. Past Medical/Surgical History Medical Problems: (1) Asthma Status: Chronic (2) Asthma, mild persistent Status: Chronic (3) Calculus of kidney and ureter Status: Resolved (4) Chronic back pain Status: Chronic (5) Depression Status: Chronic (6) Depression Status: Chronic (7) Dyslipidemia Status: Chronic (8) Dyslipidemia Status: Chronic (9) Gastroesophageal reflux disease Status: Chronic (10) GERD (gastroesophageal reflux disease) Status: Chronic (11) Kidney stone Status: Resolved (12) Migraine Status: Chronic (13) Migraine Status: Chronic (14) Pancreatitis Status: Resolved (15) Scoliosis Status: Chronic (16) Sleep disorder Status: Chronic Surgical Problems: (1) H/O colonoscopy Status: Chronic (2) History of back surgery Status: Chronic (3) S/p fragment kidney stone by shock wave Status: Chronic (4) S/P nasal surgery Status: Chronic (5) S/P tonsillectomy Status: Chronic (6) S/p ureteral stent placement Status: Chronic (7) spinal surgery due to scoliosis Status: Resolved Family History Diabetes mellitus FATHER FH: cancer BROTHER (lung [place]) FH: heart disease FATHER (fatal [place]/stroke age 79) BROTHER ([place] in early 50s) FH: kidney disease FHx: gallstones Hypertension Stroke FATHER Social History Smoking Status: Current Every Day Smoker (7 cigaretts per day x 40 years) Alcohol Use: none Drug Use: none Marital Status: Housing status: lives with family Occupational Status: employed ([employer]-[place], [place]) Immunizations History of Influenza Vaccine: Yes Influenza Vaccine Date: Aug 13, 2012 History of Tetanus Vaccine?: Yes History of Pneumococcal: Yes Pneumococcal Date: Jul 16, 2010 History of Hepatitis B Vaccine: Yes Multi-Drug Resistant Organisms History of MDRO: No Allergies Coded Allergies: No Known Allergies (Unverified , 01/28/17) Home Medications Scheduled Albuterol Sulfate (Proventil Hfa), 2 PUFFS INH QID Amitriptyline Hcl (Amitriptyline Hcl), 50 MG PO HS Aspirin (Aspirin), 325 MG PO DAILY Azithromycin (Zithromax), 250 MG PO DAILY Fish Oil (Solomon-3), 1 CAP PO DAILY Fluticasone Propionate (Flovent Hfa), 2 PUFFS INH DAILY Paroxetine Hcl (Paxil), 40 MG PO DAILY Pravastatin Sod (Pravastatin Sodium), 40 MG PO HS Prednisone Tab (Prednisone), 10 MG PO UD Ranitidine Hcl (Ranitidine Hcl), 300 MG PO BID Sumatriptan Succinate (Imitrex), 50 MG PO PRN Scheduled PRN Ipratropium-Albuterol (Duoneb), 3 ML INH Q6H PRN for SOB/Wheezing Review of Systems Constitutional: + fatigue, + fever, No chills, No weakness Eyes: No worsening of vision ENT: + nasal symptoms, + sore throat, No hearing loss Respiratory: + cough, + dyspnea on exertion, + shortness of breath, + sputum, + wheezing Cardiovascular: No chest pain, No claudication, No edema, No palpitations Abdomen: No constipation, No diarrhea, No nausea, No pain, No vomiting Musculoskeletal: No calf pain, No swelling Genitourinary - Male: No dysuria Neurologic: No weakness Psychiatric: No depression symptoms Endocrine: + fatigue Hematologic / Lymphatic: No abnormal bleeding/bruising Integumentary: No new/changing skin lesions Physical Exam Vital Signs Date Time Temp Pulse Resp B/P Pulse Ox O2 Delivery O2 Flow Rate FiO2 01/28/17 14:49 70 18 96/59 95 Mask 5.0 01/28/17 13:13 37.0 83 22 107/70 94 Mask 5.0 01/28/17 12:02 92 01/28/17 11:48 89 22 113/68 97 Mask 5.0 01/28/17 11:45 96 Mask 5.0 01/28/17 10:57 89 Nasal Cannula 4.0 01/28/17 10:50 38.1 104 22 124/76 83 Room Air 01/28/17 10:50 83 Room Air General Appearance: WD/WN, no apparent distress, + pertinent finding (Pt is sitting up in bed with at bedside ) Head: normocephalic, atraumatic Eyes: normal inspection ENT: hearing grossly normal Neck: supple Respiratory/Chest: chest non-tender, lungs clear, normal breath sounds, no respiratory distress, + pertinent finding (no wheezing or crackles noted) Cardiovascular: regular rate, rhythm, no edema, no murmur Abdomen/GI: normal bowel sounds, non tender, soft Back: normal inspection Extremities/Musculoskelatal: normal inspection, no calf tenderness, no pedal edema Neurologic/Psych: alert, normal mood/affect, oriented x 3 Skin: normal color, warm/dry Diagnostics Laboratory Results Results Past 24 Hours Test 01/28/17 11:10 01/28/17 11:15 01/28/17 12:40 Range/Units White Blood Count 9.51 4.8-10.8 K/uL Red Blood Count 5.02 4.7-6.1 M/uL Hemoglobin 14.6 14.0-18.0 g/dL Hematocrit 44.4 42-52 % Mean Corpuscular Volume 88.4 80-100 fL Mean Corpuscular Hemoglobin 29.1 25-34 pg Mean Corpuscular Hemoglobin Concent 32.9 32-36 g/dl Platelet Count 218 130-400 K/uL Mean Platelet Volume 9.7 7.4-10.4 fL Neutrophils (%) (Auto) 76.1 % Lymphocytes (%) (Auto) 13.4 % Monocytes (%) (Auto) 10.2 % Eosinophils (%) (Auto) 0.0 % Basophils (%) (Auto) 0.1 % Neutrophils # (Auto) 7.24 1.4-6.5 K/uL Lymphocytes # (Auto) 1.27 1.2-3.4 K/uL Monocytes # (Auto) 0.97 0.11-0.59 K/uL Eosinophils # (Auto) 0.00 0-0.5 K/uL Basophils # (Auto) 0.01 0-0.2 K/uL RDW Standard Deviation 41.3 36.4-46.3 fL RDW Coefficient of Variation 12.8 11.5-14.5 % Immature Granulocyte % (Auto) 0.2 % Immature Granulocyte # (Auto) 0.02 0.00-0.02 K/uL Red Blood Cell Morphology Unremarkable Prothrombin Time 11.3 9.0-12.0 SECONDS Prothromb Time International Ratio 1.1 0.9-1.1 Activated Partial Thromboplast Time 29.9 21.0-31.0 SECONDS Partial Thromboplastin Ratio 1.2 Sodium Level 136 136-145 mmol/L Potassium Level 3.6 3.5-5.1 mmol/L Chloride Level 100 98-107 mmol/L Carbon Dioxide Level 29 21-32 mmol/L Anion Gap 7.0 3-11 mmol/L Blood Urea Nitrogen 14 7-18 mg/dl Creatinine 0.87 0.60-1.40 mg/dl Est Creatinine Clear Calc Drug Dose 111.0 ml/min Estimated GFR () 115.0 Estimated GFR (Non- 99.2 BUN/Creatinine Ratio 16.0 10-20 Random Glucose 97 70-99 mg/dl Calcium Level 8.6 8.5-10.1 mg/dl Magnesium Level 1.6 1.8-2.4 mg/dl Total Bilirubin 0.5 0.2-1 mg/dl Direct Bilirubin 0.2 0-0.2 mg/dl Aspartate Amino Transf (AST/SGOT) 26 15-37 U/L Alanine Aminotransferase (ALT/SGPT) 26 12-78 U/L Alkaline Phosphatase 108 45-117 U/L Troponin I < 0.015 0-0.045 ng/ml Total Protein 7.9 6.4-8.2 gm/dl Albumin 3.6 3.4-5.0 gm/dl Lipase 96 73-393 U/L Thyroid Stimulating Hormone (TSH) 1.540 0.300-4.500 uIu/ml Bedside Lactic Acid Venous 1.20 0.90-1.70 mmol/L Urine Color YELLOW Urine Appearance CLEAR CLEAR Urine pH 5.5 4.5-7.5 Urine Specific [place] 1.018 1.000-1.030 Urine Protein NEG NEG Urine Glucose (UA) NEG NEG Urine Ketones NEG NEG Urine Occult Blood TRACE NEG Urine Nitrite NEG NEG Urine Bilirubin NEG NEG Urine Urobilinogen NEG NEG Urine Leukocyte Esterase NEG NEG Urine WBC (Auto) 1-5 0-5 /hpf Urine RBC (Auto) 0-4 0-4 /hpf Urine Hyaline Casts (Auto) 0 0-5 /lpf Urine Epithelial Cells (Auto) 0-5 0-5 /lpf Urine Bacteria (Auto) NEG NEG Microbiology Results 01/28/17 Blood Culture, Received Pending 01/28/17 Blood Culture, Received Pending 01/28/17 Urine Culture, Received Pending Diagnostic Radiology CXR IMPRESSION: Diffuse bilateral parenchymal infiltrates EKG EKG: sinus tachy at 104 bpm with no acute ischemic changes; no change when compared to EKG from 10/17/16 Impression Assessment and Plan HYPOXIC RESPIRATORY FAILURE SECONDARY TO CAP/COPD EXACERBATION pt presented with worsening SOB, wheezing and productive cough; failed outpatient treatment -admit to telemetry -hypoxic to 83% on room air; now saturating well on 5L via mask -pt is febrile and tachycardic on arrival; no leukocytosis; lactic acid 1.2 -CXR + bibasilar infiltrates -blood and sputum cx-pending -check flu PCR -start Prednisone, Levaquin and Xopenex nebs -cont oxygen supplementation; wean as tolerated -pt counseled regarding importance of smoking cessation -monitor HYPOMAGNESIA -Mag 1.6; replete -monitor daily DEPRESSION -stable -cont Paxil and Elavil -monitor DYSLIPIDEMIA -cont statin DVT PROPHYLAXIS -Low VTE risk -SCDs and ambulation CODE STATUS -FULL CODE status DISPO Pt seen in collaboration with Dr. Barth. Please see his addendum for further details. Thanks! -Of note: patient will be followed by Dr. Ho starting tomorrow AM. VTE Prophylaxis VTE Risk Assessment Done? Y/N: Yes Risk Level: Low
--- NOTE | 2017-01-28 15:14 | EMERGENCY ROOM VISIT NOTE ---
History Report prepared by Scribe: Anat Ochoa Under the Supervision of: Dr. Mateo Younger M.D. 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 PT VERBALIZES HE WENT TO HIS PCP ON TUESDAY AND WAS DIAGNOSED WITH PNX, PLACED ON Z-TAMIKA AND PREDNISONE. PT WAS FEELING BETTER UNTIL TODAY. PT PRESENTS TO ED SOB, HYPOXIC, SATS 83% ON ROOM AIR, DENIES O2 USE AT HOME. PT ALSO FEBRILE IN TRIAGE, 38.1, DENIES ANY TYLENOL OR IBUPROFEN. PT ALSO C/O ABDOMINAL PAIN, HX OF PANCREATITIS , NON-ALCOHOL RELATED. History of Present Illness The patient is a 51 year old male who presents to the Emergency Room with complaints of worsening shortness of breath for the past 5 days. He is accompanied by his . He reports he started to feel sick this past Tuesday. He saw his Primary Care Physician the next day and was diagnosed with pneumonia. He was placed on a Z-Pack and Prednisone. He states he was feeling better until this morning, when he began to feel short of breath and hypoxic. His O2 was 83% on room air in triage and he is febrile with a temperature of 38.1. He has not taken any medication for his fever yet but uses Albuterol and Symbicort at home for his breathing. The inhalers have provided some relief. He notes any movement or exertion worsens his shortness of breath. He is a current smoker and also has a history of asthma. He has not smoked a cigarette for the past 5 days. 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 He reports he experienced both pneumonia and pancreatitis this past September, 5 months ago. Pt denies LOC, headache, chills, diaphoresis, visual changes, neck pain, chest pain, nausea, vomiting, back pain, melena, hematochezia, urinary symptoms, numbness, weakness, lymphadenopathy, rash, or other complaints. 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 A total of ten systems were reviewed and were otherwise negative. Past Medical & Surgical Medical Problems: (1) Asthma (2) Asthma, mild persistent (3) Calculus of kidney and ureter (4) Chronic back pain (5) Depression (6) Depression (7) Dyslipidemia (8) Dyslipidemia (9) Gastroesophageal reflux disease (10) GERD (gastroesophageal reflux disease) (11) Hypoxia (12) Kidney stone (13) Migraine (14) Migraine (15) Pancreatitis (16) Scoliosis (17) Sleep disorder Surgical Problems: (1) H/O colonoscopy (2) History of back surgery (3) S/p fragment kidney stone by shock wave (4) S/P nasal surgery (5) S/P tonsillectomy (6) S/p ureteral stent placement (7) spinal surgery due to scoliosis Family History Diabetes mellitus FATHER FH: cancer BROTHER (lung CA) FH: heart disease FATHER (fatal PA/stroke age 79) BROTHER (PA in early 50s) FH: kidney disease FHx: gallstones Hypertension Stroke FATHER Social History Smoking Status: Former Smoker Alcohol Use: none Drug Use: none Marital Status: Housing Status: lives with significant other Occupation Status: employed Current/Historical Medications Scheduled Albuterol Sulfate (Proventil Hfa), 2 PUFFS INH QID Amitriptyline Hcl (Amitriptyline Hcl), 50 MG PO HS Aspirin (Aspirin), 325 MG PO DAILY Azithromycin (Zithromax), 250 MG PO DAILY Fish Oil (Ragan-3), 1 CAP PO DAILY Fluticasone Propionate (Flovent Hfa), 2 PUFFS INH DAILY Paroxetine Hcl (Paxil), 40 MG PO DAILY Pravastatin Sod (Pravastatin Sodium), 40 MG PO HS Prednisone Tab (Prednisone), 10 MG PO UD Ranitidine Hcl (Ranitidine Hcl), 300 MG PO BID Sumatriptan Succinate (Imitrex), 50 MG PO PRN Scheduled PRN Ipratropium-Albuterol (Duoneb), 3 ML INH Q6H PRN for SOB/Wheezing Allergies Coded Allergies: No Known Allergies (Unverified , 01/28/17) Physical Exam Vital Signs Date Time Temp Pulse Resp B/P Pulse Ox O2 Delivery O2 Flow Rate FiO2 01/28/17 14:49 70 18 96/59 95 Mask 5.0 01/28/17 13:13 37.0 83 22 107/70 94 Mask 5.0 01/28/17 12:02 92 01/28/17 11:48 89 22 113/68 97 Mask 5.0 01/28/17 11:45 96 Mask 5.0 01/28/17 10:57 89 Nasal Cannula 4.0 01/28/17 10:50 38.1 104 22 124/76 83 Room Air 01/28/17 10:50 83 Room Air Physical Exam GENERAL: Awake, alert, dyspneic-appearing, in mild distress HENT: Normocephalic, atraumatic. Oropharynx unremarkable. EYES: Normal conjunctiva. Sclera non-icteric. NECK: Supple. No nuchal rigidity. FROM. No JVD. RESPIRATORY: Inspiratory and expiratory wheezing, more so on the right. Crackles bilaterally. CARDIAC: Borderline tachycardia, normal rhythm. Extremities warm and well perfused. Pulses equal. ABDOMEN: Soft, non-distended. No tenderness to palpation. No rebound or guarding. No masses. RECTAL: Deferred. MUSCULOSKELETAL: Chest examination reveals anterior costal margin tenderness. The back is symmetrical on inspection without obvious abnormality. There is no CVA tenderness to palpation. No joint edema. LOWER EXTREMITIES: Calves are equal size bilaterally and non-tender. No edema. No discoloration. NEURO: Normal sensorium. No sensory or motor deficits noted. SKIN: No rash or jaundice noted. Medical Decision & Procedures ER Provider Diagnostic Interpretation: This X-Ray was reviewed and interpreted by myself and the radiologist. CHEST ONE VIEW PORTABLE CLINICAL HISTORY: cough, fever dyspnea COMPARISON STUDY: 11/09/2016 FINDINGS: Interval development of diffuse left hemithoracic and right apical infiltrates. Mild infiltrative change right base. Thoracic scoliosis. Diaphragms smooth. IMPRESSION: Diffuse bilateral parenchymal infiltrates Electronically signed by: Sergey Levine M.D. 01/28/2017 12:23 PM Laboratory Results 01/28/17 11:10 Red Blood Count 5.02, Mean Corpuscular Volume 88.4, Mean Corpuscular Hemoglobin 29.1, Mean Corpuscular Hemoglobin Concent 32.9, Mean Platelet Volume 9.7, Neutrophils (%) (Auto) 76.1, Lymphocytes (%) (Auto) 13.4, Monocytes (%) (Auto) 10.2, Eosinophils (%) (Auto) 0.0, Basophils (%) (Auto) 0.1, Neutrophils # (Auto ) 7.24, Lymphocytes # (Auto) 1.27, Monocytes # (Auto) 0.97, Eosinophils # (Auto ) 0.00, Basophils # (Auto) 0.01 01/28/17 11:10 Test 01/28/17 11:10 01/28/17 11:15 01/28/17 12:40 White Blood Count 9.51 K/uL (4.8-10.8) Red Blood Count 5.02 M/uL (4.7-6.1) Hemoglobin 14.6 g/dL (14.0-18.0) Hematocrit 44.4 % (42-52) Mean Corpuscular Volume 88.4 fL (80-100) Mean Corpuscular Hemoglobin 29.1 pg (25-34) Mean Corpuscular Hemoglobin Concent 32.9 g/dl (32-36) Platelet Count 218 K/uL (130-400) Mean Platelet Volume 9.7 fL (7.4-10.4) Neutrophils (%) (Auto) 76.1 % Lymphocytes (%) (Auto) 13.4 % Monocytes (%) (Auto) 10.2 % Eosinophils (%) (Auto) 0.0 % Basophils (%) (Auto) 0.1 % Neutrophils # (Auto) 7.24 K/uL (1.4-6.5) Lymphocytes # (Auto) 1.27 K/uL (1.2-3.4) Monocytes # (Auto) 0.97 K/uL (0.11-0.59) Eosinophils # (Auto) 0.00 K/uL (0-0.5) Basophils # (Auto) 0.01 K/uL (0-0.2) RDW Standard Deviation 41.3 fL (36.4-46.3) RDW Coefficient of Variation 12.8 % (11.5-14.5) Immature Granulocyte % (Auto) 0.2 % Immature Granulocyte # (Auto) 0.02 K/uL (0.00-0.02) Red Blood Cell Morphology Unremarkable Prothrombin Time 11.3 SECONDS (9.0-12.0) Prothromb Time International Ratio 1.1 (0.9-1.1) Activated Partial Thromboplast Time 29.9 SECONDS (21.0-31.0) Partial Thromboplastin Ratio 1.2 Anion Gap 7.0 mmol/L (3-11) Est Creatinine Clear Calc Drug Dose 111.0 ml/min Estimated GFR () 115.0 Estimated GFR (Non- 99.2 BUN/Creatinine Ratio 16.0 (10-20) Calcium Level 8.6 mg/dl (8.5-10.1) Magnesium Level 1.6 mg/dl (1.8-2.4) Total Bilirubin 0.5 mg/dl (0.2-1) Direct Bilirubin 0.2 mg/dl (0-0.2) Aspartate Amino Transf (AST/SGOT) 26 U/L (15-37) Alanine Aminotransferase (ALT/SGPT) 26 U/L (12-78) Alkaline Phosphatase 108 U/L (45-117) Troponin I < 0.015 ng/ml (0-0.045) Total Protein 7.9 gm/dl (6.4-8.2) Albumin 3.6 gm/dl (3.4-5.0) Lipase 96 U/L (73-393) Thyroid Stimulating Hormone (TSH) 1.540 uIu/ml (0.300-4.500) Bedside Lactic Acid Venous 1.20 mmol/L (0.90-1.70) Urine Color YELLOW Urine Appearance CLEAR (CLEAR) Urine pH 5.5 (4.5-7.5) Urine Specific [place] 1.018 (1.000-1.030) Urine Protein NEG (NEG) Urine Glucose (UA) NEG (NEG) Urine Ketones NEG (NEG) Urine Occult Blood TRACE (NEG) Urine Nitrite NEG (NEG) Urine Bilirubin NEG (NEG) Urine Urobilinogen NEG (NEG) Urine Leukocyte Esterase NEG (NEG) Urine WBC (Auto) 1-5 /hpf (0-5) Urine RBC (Auto) 0-4 /hpf (0-4) Urine Hyaline Casts (Auto) 0 /lpf (0-5) Urine Epithelial Cells (Auto) 0-5 /lpf (0-5) Urine Bacteria (Auto) NEG (NEG) Medications Administered Medications (Trade) Dose Ordered Sig/Nemo Route Start Time Stop Time Status Last Admin Dose Admin Sodium Chloride (Nss 1000ml) 1,000 ml @ 999 mls/hr Q1H1M STAT IV 01/28/17 11:06 01/28/17 12:06 DC 01/28/17 11:27 999 MLS/HR Piperacillin Sod/ Tazobactam Sod (Zosyn Iv) 4.5 gm NOW STAT IV 01/28/17 11:16 01/28/17 11:19 DC 01/28/17 11:28 4.5 GM Levofloxacin (Levaquin / D5W) 750 mg NOW STAT IV 01/28/17 11:16 01/28/17 11:19 DC 01/28/17 11:28 750 MG Albuterol/ Ipratropium (Duoneb) 3 ml NOW STAT INH 01/28/17 11:16 01/28/17 11:19 DC 01/28/17 11:27 3 ML Methylprednisolone Sodium Succinate (Solu-Medrol IV) 125 mg NOW STAT IV 01/28/17 11:16 01/28/17 11:19 DC 01/28/17 11:27 125 MG Morphine Sulfate 4 mg 4 mg Q15M PRN IV 01/28/17 11:30 02/11/17 11:29 01/28/17 14:48 4 MG Sodium Chloride (Nss 1000ml) 1,000 ml @ 200 mls/hr Q5H STAT IV 01/28/17 11:20 01/28/17 16:19 01/28/17 11:28 200 MLS/HR Ondansetron HCl (Zofran Inj) 4 mg STK-MED ONCE .ROUTE 01/28/17 11:36 01/28/17 11:37 DC 01/28/17 11:44 4 MG ECG Indication: SOB/dyspnea Rate (beats per minute): 104 Rhythm: sinus tachycardia Findings: no acute ischemic change, no ectopy ED Course 1106: NSS 1000 ml @ 999 mls/hr IV. 1115: The patient was evaluated in room C5. A complete history and physical exam was performed. 1116: Solu-Medrol 125 mg IV, DuoNeb 3 ml ING, Levaquin 750 mg IV, Zosyn 4.5 gm IV. 1120: Solu-Medrol 125 mg IV, NSS 1000 ml @ 200 mls/hr IV. 1130: Morphine Sulfate 4 mg IV. 1136: Zofran 4 mg IV. 1330: I reevaluated the patient. He is resting comfortably. I discussed my recommendation that he remain in the hospital for further evaluation and management and he verbalized complete understanding and agreement. 1338: I discussed the patients case with Cony Kneney PA-C, [facility]. The patient will be further evaluated. Medical Decision Triage Nursing notes reviewed. The patient's presentation and history were concerning for respiratory difficulty. Etiologies such as pneumonia, COPD, reactive airway disease, CHF, cardiac ischemia, pulmonary embolism, pneumothorax, musculoskeletal, infections, gastrointestinal, as well as others were entertained. The patient was evaluated. There was concerns for pneumonia given his history. The patient was on supplemental oxygen as he was hypoxic. The patient was hydrated. He was given a DuoNeb and Solu-Medrol. IV antibiotics were initiated. He had an unremarkable CBC, coags, lactate, troponin, LFT, lipase, TSH. Chest x-ray revealed bilateral pneumonia. On reassessment the patient was feeling somewhat better. He will need further evaluation and management in the hospital given the failed outpatient management and hypoxia. Consultation was made with the hospitalist service. The patient was evaluated in the Emergency Room for further management. The chart was completed utilizing [employer] Speech voice recognition software. Grammatical errors, random word insertions, pronoun errors, and incomplete sentences are an occasional consequence of this system due to software limitations, ambient noise, and hardware issues. Any formal questions or concerns about the content, text, or information contained within the body of this dictation should be directly addressed to the physician for clarification. Consults Time Called: 1335 Consulting Physician: Cony Kenney PA-C, [facility] Returned Call: [phone] I discussed the patients case with Cony Kenney PA-C, [facility]. The patient will be further evaluated. Impression Primary Impression: Bilateral pneumonia Additional Impression: Hypoxia Scribe Attestation The scribe's documentation has been prepared under my direction and personally reviewed by me in its entirety. I confirm that the note above accurately reflects all work, treatment, procedures, and medical decision making performed by me. Departure Information Dispostion Being Evaluated By Hospitalist Referrals Brina Sweeney M.D. (MEDICAL) (PCP) Patient Instructions My [facility] Problem Qualifiers
--- NOTE | 2017-01-28 15:48 | History and Physical ---
History & Physical Date of Service January 28, 2017. History & Physical This is a 51 year old male with a PMH of HTN, HLD, asthma, depression, hx. of pancreatitis presents with cough, and worsening shortness of breath for the past five days. He states his asthma has been worsening for the past few days. He was seen by his primary care on 01/25 - was given Z-kait and prednisone taper. States that it did not help, so he presented to the ER. CXR done in the ER showing diffuse bilateral parenchymal infiltrates. He feels okay currently, changed from nasal cannula to a simple mask due to the nasal cannula drying his nostrils out. Breathing status has improved. No chest pain. VITALS: Last Vital Signs Documentation Date Time Temp Pulse Resp B/P Pulse Ox O2 Delivery O2 Flow Rate FiO2 01/28/17 14:49 70 18 96/59 95 Mask 5.0 01/28/17 13:13 37.0 GEN: no acute distress CVS: +S1, S2, RRR LUNGS: decreased breath sounds, mild end expiratory wheezing EXT: no edema Community Acquired Pneumonia this is his second episode this year, first pneumonia episode in September 2016 CXR shows diffuse bilateral parenchymal infiltrates presented with +fevers, SOB/cough no leukocytosis will continue IV Levaquin for now Asthma Exacerbation patient presents with wheezing, was given Z-kait and prednisone rescue likely worsened by pneumonia we can do prednisone 40mg for now, taper down as clinical picture improves nebulizers as needed
[2017-01-28] MEDS: MAGNESIUM SULFATE 1GM / D5W 1 GM in PREMIXED IN D5W 100 ML IV SCH ×2 (17:44→19:07)
[2017-01-28] MEDS: LEVALBUTEROL 1.25MG/0.5ML NEB INH SCH ×2 (17:54→19:29)
[2017-01-28] MEDS: IPRATROPIUM BROMIDE NEB SOLN 0.02% 2.5 ML VIAL INH SCH ×2 (17:54→19:29)
[2017-01-28 18:44] VITALS: BP 129/81; PULSE 73; TEMP 36.3; O2SAT 99; Ht 175.3 cm; Wt 91.2 kg
[2017-01-28 19:29] VITALS: PULSE 79; O2SAT 89
[2017-01-28 19:30] LABS: INFLUENZA A PCR Neg for Influ A (NEG); INFLUENZA B PCR Neg for Influ B (NEG)
[2017-01-28 20:29] VITALS: BP 110/67; PULSE 73; TEMP 36.4; O2SAT 93
[2017-01-28] MEDS: PRAVASTATIN SOD 40 MG TAB PO SCH (21:31)
[2017-01-28] MEDS: RANITIDINE HCL 150 MG TAB PO SCH (21:31)
[2017-01-28] MEDS: AMITRIPTYLINE HCL 50 MG TAB PO SCH (21:31)
[2017-01-29] VITALS (12 sets, daily range): BP systolic 106–145; BP diastolic 68–85; PULSE 60–87; TEMP 36.2–36.8; O2SAT 89–98
[2017-01-29] MEDS: LEVALBUTEROL 1.25MG/0.5ML NEB INH SCH ×4 (01:51→19:07)
[2017-01-29] MEDS: IPRATROPIUM BROMIDE NEB SOLN 0.02% 2.5 ML VIAL INH SCH ×4 (01:51→19:07)
[2017-01-29 08:17] LABS: HEMATOCRIT 41.2 % (42-52); MEAN CELL VOLUME 89.2 fL (80-100); MEAN CORPUSCULAR HEMOGLOBIN 29.4 pg (25-34); MEAN PLATELET VOLUME 9.5 fL (7.4-10.4); PLATELET COUNT 181 K/uL (130-400); RED BLOOD COUNT 4.62 M/uL (4.7-6.1); WHITE BLOOD COUNT 7.83 K/uL (4.8-10.8)
[2017-01-29] MEDS: ASPIRIN 325 MG ECTAB PO SCH (08:38)
[2017-01-29] MEDS: RANITIDINE HCL 150 MG TAB PO SCH ×2 (08:38→21:33)
[2017-01-29] MEDS: PAROXETINE 20 MG TAB PO SCH (08:38)
[2017-01-29] MEDS: OMEGA-3 (PURIFIED FISH OIL) 1 GM CAP PO SCH (08:39)
[2017-01-29 08:41] LABS: CREATININE 0.74 mg/dl (0.60-1.40); MAGNESIUM 2.2 mg/dl (1.8-2.4); POTASSIUM 3.8 mmol/L (3.5-5.1)
[2017-01-29 09:17] LABS: CALCIUM 8.8 mg/dl (8.5-10.1)
--- NOTE | 2017-01-29 09:24 | DIAGNOSTIC IMAGING REPORT ---
CHEST 2 VIEWS ROUTINE CLINICAL HISTORY: f/u posse. Pneumonia pneumonia COMPARISON STUDY: 01/28/2017 FINDINGS: Mild improvement in bilateral parenchymal infiltrative change bilaterally. Cardiac size remains top normal. Thoracic scoliosis persists. Diaphragms smooth. IMPRESSION: Diffuse bilateral parenchymal infiltrative change mildly improved from the prior study. Electronically signed by: Sergey Levine M.D. 01/29/2017 9:23 AM Dictated Date/Time: 01/29/2017 9:22 AM
[2017-01-29] MEDS: LEVOFLOXACIN / D5W 500 MG in PREMIXED IN D5W 100 ML IV SCH (11:20)
--- NOTE | 2017-01-29 16:52 | Progress Note ---
Internal Med Progress Note Date of Service: January 29, 2017. Provider Documentation: SUBJECTIVE: remains hypoxic , requiring 6 L02 on venturi mask , pt prefers to use the mask /opposed to nasal canula denies of SOB , still feeling SOB with activities remains afebrile, has cough , improved since admission visiting present at bedside very concern regarding mold in the current house they are living for past 3 years believes that the mold may be contributing to pt's SOB looking to move to a new place , nothing available immediately pt and requesting social service assistance OBJECTIVE: Vital Signs-as noted below Exam: General-no apparent distress Eyes-sclera non icteric ENT-on venturi mask on 6 L 02 Lungs-very diminished with poor air entry , no obvious rales or wheeze noted Heart-regular Abdomen-soft, non tender Extremities-no rash or deformity Neuro-no focal neurological deficit Lab data as noted below. ASSESSMENT & PLAN: ACUTE HYPOXIC RESPIRATORY FAILURE SECONDARY TO CAP/COPD EXACERBATION pt presented with worsening SOB, wheezing and productive cough; failed outpatient treatment -hypoxic to 83% on room air; now requiring 6 L 02 via mask ( was not on home 02 ) -CXR + bibasilar infiltrates -blood and sputum cx-pending -flu PCR-negative hx of smoking , mold exposure -pt counseled regarding importance of smoking cessation -on Levaquin and Xopenex nebs -will order IV Solu Medrol -cont oxygen supplementation; wean as tolerated -CT of chest with contrast ordered -pulmonology eval requested HYPOMAGNESIA -Mag 1.6; replete -monitor daily DEPRESSION -stable -cont Paxil and Elavil -monitor DYSLIPIDEMIA -cont statin DVT PROPHYLAXIS -Low VTE risk -SCDs and ambulation CODE STATUS -FULL CODE status DISPOSITION Expected to return home when medically stable Medicine follow up with Dr Sweeney social service consult requested to assist family in their current living situation Vital Signs: Date Time Temp Pulse Resp B/P Pulse Ox O2 Delivery O2 Flow Rate FiO2 01/29/17 16:00 Venturi Mask 6.0 01/29/17 15:45 36.4 78 20 114/72 94 Venturi Mask 6.0 01/29/17 14:12 78 14 93 Venturi Mask 28 01/29/17 12:00 Venturi Mask 6.0 01/29/17 11:06 36.3 87 20 106/68 89 Venturi Mask 01/29/17 08:22 36.8 71 18 118/75 98 23 01/29/17 08:00 Venturi Mask 6.0 01/29/17 07:16 73 18 93 Venturi Mask 01/29/17 05:02 36.2 61 18 120/74 94 Venturi Mask 01/29/17 04:00 Venturi Mask 6.0 01/29/17 01:52 65 18 91 Venturi Mask 28 01/29/17 00:07 36.3 60 18 110/70 92 Venturi Mask 01/29/17 00:01 92 Venturi Mask 6.0 01/28/17 20:29 36.4 73 18 110/67 93 Venturi Mask 01/28/17 20:00 Venturi Mask 6.0 01/28/17 19:29 79 18 89 Room Air Lab Results: Results Past 24 Hours Test 01/29/17 07:42 Range/Units White Blood Count 7.83 4.8-10.8 K/uL Red Blood Count 4.62 4.7-6.1 M/uL Hemoglobin 13.6 14.0-18.0 g/dL Hematocrit 41.2 42-52 % Mean Corpuscular Volume 89.2 80-100 fL Mean Corpuscular Hemoglobin 29.4 25-34 pg Mean Corpuscular Hemoglobin Concent 33.0 32-36 g/dl RDW Standard Deviation 40.5 36.4-46.3 fL RDW Coefficient of Variation 12.6 11.5-14.5 % Platelet Count 181 130-400 K/uL Mean Platelet Volume 9.5 7.4-10.4 fL Sodium Level 138 136-145 mmol/L Potassium Level 3.8 3.5-5.1 mmol/L Chloride Level 102 98-107 mmol/L Carbon Dioxide Level 30 21-32 mmol/L Anion Gap 6.0 3-11 mmol/L Blood Urea Nitrogen 13 7-18 mg/dl Creatinine 0.74 0.60-1.40 mg/dl Est Creatinine Clear Calc Drug Dose 130.2 ml/min Estimated GFR () 122.9 Estimated GFR (Non- 106.1 BUN/Creatinine Ratio 18.0 10-20 Random Glucose 112 70-99 mg/dl Calcium Level 8.8 8.5-10.1 mg/dl Magnesium Level 2.2 1.8-2.4 mg/dl
[2017-01-29] MEDS ORDERED: OPTIRAY 320 IV PRN (18:15)
--- NOTE | 2017-01-29 19:24 | DIAGNOSTIC IMAGING REPORT ---
CHEST CT WITH CONTRAST CT DOSE: 469.24 mGy.cm HISTORY: Dyspnea SOB /hypoxia TECHNIQUE: Multiaxial CT images of the chest were performed following the intravenous administration of contrast. COMPARISON: 10/17/2016 FINDINGS: Diffuse bilateral interstitial infiltrative change. There are no consolidative changes. Several small reactive nodes are present. Groundglass opacities are identified primarily in the pulmonary apical regions. This is similar in appearance compared to the prior study. Thoracic aorta is tortuous and ectatic. IMPRESSION: 1. Diffuse bilateral interstitial infiltrative change. 2. Groundglass opacities in the upper lung regions bilaterally. 3. The overall pattern is similar as compared to the prior study. 4. No regions of consolidation. 5. Differential considerations include pneumonitis versus atypical pulmonary edema. Electronically signed by: Sergey Levine M.D. 01/29/2017 7:23 PM Dictated Date/Time: 01/29/2017 7:19 PM
[2017-01-29] MEDS: PRAVASTATIN SOD 40 MG TAB PO SCH (21:33)
[2017-01-29] MEDS: AMITRIPTYLINE HCL 50 MG TAB PO SCH (21:33)
[2017-01-29] MEDS: METHYLPREDNISOLONE IV 60 MG in SYRINGE 0 ML IV SCH (21:33)
[2017-01-30] VITALS (12 sets, daily range): BP systolic 131–166; BP diastolic 77–91; PULSE 66–115; TEMP 36.3–36.7; O2SAT 90–97
[2017-01-30] MEDS: LEVALBUTEROL 1.25MG/0.5ML NEB INH SCH ×4 (01:49→19:42)
[2017-01-30] MEDS: IPRATROPIUM BROMIDE NEB SOLN 0.02% 2.5 ML VIAL INH SCH ×4 (01:49→19:41)
[2017-01-30] MEDS: METHYLPREDNISOLONE IV 60 MG in SYRINGE 0 ML IV SCH ×2 (05:55→18:22)
[2017-01-30] MEDS: ASPIRIN 325 MG ECTAB PO SCH (08:07)
[2017-01-30] MEDS: RANITIDINE HCL 150 MG TAB PO SCH ×2 (08:07→20:41)
[2017-01-30] MEDS: PAROXETINE 20 MG TAB PO SCH (08:08)
[2017-01-30] MEDS: OMEGA-3 (PURIFIED FISH OIL) 1 GM CAP PO SCH (08:36)
--- NOTE | 2017-01-30 09:31 | PULMONARY CONSULTATION ---
DATE OF CONSULTATION: 01/30/2017 HISTORY OF PRESENT ILLNESS: The patient is a 51-year-old male who was admitted to the hospital on the , Dr. Ho has asked me to evaluate the patient from a pulmonary standpoint. He is followed by Dr. Serafin Sweeney as an outpatient. Recently was treated with Z-TAMIKA and prednisone about a week ago for cough and shortness of breath. The cough was associated with mild sore throat, rhinitis, low grade fever, though he did not take his temperature at home. 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 The cough was producing just some clear sputum, he denied any hemoptysis, night sweats, or orthopnea. He has not had any peripheral edema. He has not had any industrial exposures, although he is smoking about 7-10 cigarettes on a daily basis, been smoking for about 40 years with intermittent cessation of smoking generally when he becomes ill. He was placed on antibiotic agents methylprednisolone and states he feels considerably improved since the time of admission. He believes it may be related to steroid use. His cough has resolved. The shortness of breath has considerably improved now. Interestingly enough he had a similar episode of pneumonia back in September. A CT of his chest done on 17 of October reveals ground-glass opacities with an upper lobe predominance with a slight amount of peripheral sparing if one reviews the film. No significant adenopathy was noted. He had an episode of pancreatitis at that time as well. Subsequently, he has had an EGD that was unremarkable with an unremarkable pancreatic ultrasound endoscopically. He has had a significant mold exposure. He lives in a renal home, has been living there for 3 years. He and his , his daughter is in her late 20s and a grandson who is about 3 years old, have had episodes of cough and shortness of breath. His apparently has asthma, has had numerous episodes of reactive airway disease requiring prolonged treatment with steroids. The patient had similar illness in September. He states that his house is moldy. He can smell mold in the basement and in the kitchen. Apparently a pipe above the kitchen and the bathroom on the second floor ruptured and caused a great deal of water leak down into the padilla in the kitchen. The padilla are only painted over. No significant mold remediation or construction was done. He is in the process of moving out of this home. He has never had any problems with his lungs in the past. He has not had any exposures to birds or pets. His travel history and environmental history is otherwise unremarkable. He has not had any exposure to bats. PAST MEDICAL HISTORY: Significant for asthma which is mild persistent. He carries a history of pancreatitis, renal calculi, depression, hyperlipidemia, GERD under good control, migraine headaches, scoliosis, obstructive sleep apnea. He has had lithotripsy, back surgery for degenerative joint disease of the lumbar spine, nasal surgery for septal deviation, tonsillectomy, ureteral stent placement, surgery for the scoliosis. He occasionally uses inhalers at home. FAMILY HISTORY: Father is from cancer site unknown. One brother is from lung cancer, he was a heavy tobacco user. His father had a stroke at age 79 and an MT. There is a history of coronary artery disease in his family as well. SOCIAL HISTORY: He is smoking about 7-10 cigarettes on a daily basis, smoking for 40 years. He is not an alcohol user. He has not been in the service. 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 Lives with his , his daughter and grandson. He seems to be up to date with immunizations. ALLERGIES: None. MEDICATIONS: Noted. Migraine headaches have been under good control. PHYSICAL EXAMINATION: VITAL SIGNS: Stable. Blood pressure 155/90, oxygen saturation 96% on 28% FIO2 and he is afebrile. Weight is 91 kilograms, which has been stable for him. HEENT: Unremarkable. Slight septal deviation to the right side is noted. Posterior pharynx is unremarkable. No skin lesions, nothing to suggest sarcoid is noted on his skin. No adenopathy is noted anywhere. Expansion of the thorax is good with deep inspiration. HEART: Regular rate and rhythm. No murmurs are heard. LUNGS: Clear. I could not detect any crackles, rales or wheezing. Forced expiratory maneuver 2 seconds with no wheezing is noted. Expansion of the thorax is good with deep inspiration. No muscular hypertrophy is noted. ABDOMEN: Soft, nontender. He has no cyanosis, clubbing or edema. IMAGING: I reviewed his CAT scan from [address] scan of the now was reviewed as well. It reveals bilateral ground-glass like infiltrates with some lobe sparing of the periphery. I do not detect any adenopathy. This seems to have an upper lobe predominance. No actual consolidation is noted. LABORATORY DATA: White count is 9.5, hemoglobin 14.6, hematocrit 44.4% with a platelet count of 218,000. Eosinophil count was normal. Chemistry profile looked good. TSH is normal. Lipase is unremarkable. Liver function studies were normal as well. Urinalysis revealed just 1-5 inflammatory cells. The influenza A and B PCR is negative. Sputum Gram stain from the 5th reveals many inflammatory cells, rare Gram-positive bacillus, Gram-positive coccus. Urine cultures are unremarkable. Blood cultures are unremarkable as well. The patient had been seen by Dr. Younger in the Emergency Room and the electrocardiogram in the ER reveals a sinus tachycardia, otherwise it looked good. IMPRESSION: 1. Bilateral pneumonitis. I believe this is most consistent with hypersensitivity pneumonitis. It fits with his mold exposure. The fact that he was here in September and then became ill again and the CT scan, I believe looks a little bit more dense as far as the ground-glass opacities are noted compared to the one in September. He responds very well to steroids which would be typical for hypersensitivity pneumonitis. I think an infectious etiology with his history is less likely. Also fits with the fact that he smells mold in his basement, his kitchen has been moldy and just painted over without significant remediation and all of his family members that live there have been ill. He has been there for 3 years. He told me he has never had a problem with his lungs, but he does have a history of asthma. Certainly this could be exacerbated with the tobacco use as well. RECOMMENDATIONS: 1. Prednisone. I treated him for about 4-6 weeks with p.o. prednisone with a tapering dose over that time period. He could be sent home with 40 mg once stable and then have that tapered by about 10 mg a week for 4-6 weeks. 2. Smoking cessation discussed at great length. 3. Continue on the levalbuterol and ipratropium bromide. Once the prednisone is discontinued in 4-6 weeks he can be placed on a inhaled corticosteroid such as Asmanex 220 mcg one inhalation b.i.d. with a mouth rinse and that may help to prevent exacerbations of asthma, although he apparently has not had any for several years, although he does carry a history of mild persistent asthma. We spoke at great length regarding avoiding the mold and he has agreed. He is in the process of moving out of his home now. Thanks for asking me to evaluate Mr. Winchester. Dr. Tierney will be on tomorrow, will evaluate him in the morning.
[2017-01-30] MEDS: LEVOFLOXACIN / D5W 500 MG in PREMIXED IN D5W 100 ML IV SCH (11:24)
--- NOTE | 2017-01-30 13:55 | Progress Note ---
Internal Med Progress Note Date of Service: January 30, 2017. Provider Documentation: SUBJECTIVE: felt better this AM , was transitioned to room air Spo2 maintained > 95 % having non productive cough ,afebrile developed SOB , DICKINSON with walking to bathroom put back on venturi mask ( pt does not like nasal canula ) OBJECTIVE: Vital Signs-as noted below Exam: General-no apparent distress Eyes-sclera non icteric ENT-on venturi mask Lungs-improved aeration in both lungs form before Heart-regular Abdomen-soft, non tender Extremities-no rash or deformity Neuro-no focal neurological deficit Lab data as noted below. ASSESSMENT & PLAN: ACUTE HYPOXIC RESPIRATORY FAILURE -possible due to interstitial lung disease pt presented with worsening SOB, wheezing and productive cough; failed outpatient treatment -hypoxic to 83% on room air; now requiring 6 L 02 via mask ( was not on home 02 ) -CXR + bibasilar infiltrates -blood and sputum cx -no growth , sputum culture light normal idris -flu PCR-negative hx of smoking , mold exposure -pt counseled regarding importance of smoking cessation -on Levaquin and Xopenex nebs -stared on IV Solu Medrol -cont oxygen supplementation; wean as tolerated -CT of chest with contrast : 1. Diffuse bilateral interstitial infiltrative change. 2. Ground glass opacities in the upper lung regions bilaterally. 3. The overall pattern is similar as compared to the prior study. 4. No regions of consolidation. 5. Differential considerations include pneumonitis versus atypical pulmonary edema. -pulmonology eval requested -appreciate input possible interstitial pneumonitis due to environmental pathogen -exposure to molds /tobacco smoking etc recommend to gradually transition to PO Prednisone will need inhaled steroid on discharge pt is counselled for smoking cessation now on the process of being moved out of the prior house with mold 2 step exercise prior to discharge if remains hypoxic persistently pulmonology follow up as out pt DEPRESSION -stable -cont Paxil and Elavil -monitor DYSLIPIDEMIA -cont statin DVT PROPHYLAXIS -Low VTE risk -SCDs and ambulation CODE STATUS -FULL CODE status DISPOSITION stable to be transferred to medical floor Expected to return home when medically stable Medicine follow up with Dr Sweeney out pt follow up with pulmonology social service consult requested to assist family in their current living situation update given to at bedside Vital Signs: Date Time Temp Pulse Resp B/P Pulse Ox O2 Delivery O2 Flow Rate FiO2 01/30/17 13:42 36.7 85 18 93 6.0 01/30/17 12:00 Room Air 01/30/17 11:03 36.7 85 18 144/86 93 Room Air 01/30/17 08:00 Venturi Mask 6.0 01/30/17 07:23 36.3 69 20 155/90 96 7.0 01/30/17 07:08 68 16 94 Room Air 01/30/17 04:00 36.3 80 18 131/80 96 6.0 01/30/17 04:00 Venturi Mask 6.0 28 01/30/17 01:49 66 16 96 Venturi Mask 28 01/30/17 00:01 Venturi Mask 6.0 28 01/29/17 23:41 36.5 79 18 129/78 95 6.0 01/29/17 20:00 Venturi Mask 6.0 28 01/29/17 19:09 76 16 96 Venturi Mask 28 01/29/17 18:45 36.4 76 20 145/85 96 Nasal Cannula 7.0 01/29/17 16:00 Venturi Mask 6.0 01/29/17 15:45 36.4 78 20 114/72 94 Venturi Mask 6.0 01/29/17 14:12 78 14 93 Venturi Mask 28
[2017-01-30] MEDS: PRAVASTATIN SOD 40 MG TAB PO SCH (20:41)
[2017-01-30] MEDS: AMITRIPTYLINE HCL 50 MG TAB PO SCH (20:41)
[2017-01-31] VITALS (8 sets, daily range): BP systolic 150–155; BP diastolic 88–95; PULSE 72–92; TEMP 36.3–36.6; O2SAT 91–94
[2017-01-31] MEDS: IPRATROPIUM BROMIDE NEB SOLN 0.02% 2.5 ML VIAL INH SCH ×5 (01:48→19:28)
[2017-01-31] MEDS: LEVALBUTEROL 1.25MG/0.5ML NEB INH SCH ×5 (01:48→19:28)
[2017-01-31] MEDS: METHYLPREDNISOLONE IV 60 MG in SYRINGE 0 ML IV SCH ×2 (05:53→18:10)
[2017-01-31] MEDS: RANITIDINE HCL 150 MG TAB PO SCH ×2 (07:40→20:27)
[2017-01-31] MEDS: OMEGA-3 (PURIFIED FISH OIL) 1 GM CAP PO SCH (07:40)
[2017-01-31] MEDS: ASPIRIN 325 MG ECTAB PO SCH (07:40)
[2017-01-31] MEDS: PAROXETINE 20 MG TAB PO SCH (07:40)
--- NOTE | 2017-01-31 12:08 | PULMONARY PROGRESS NOTE ---
DATE: 01/31/2017 TIME: 11:40 a.m. SUBJECTIVE: The patient states he is still short of breath with minimal exertion. He does not feel substantially better than at the time of admission. He is coughing about the same. He feels that it is looser but he has coughed up only scant amounts of phlegm. He denies any chest pains. He denies chills, fevers or sweats. OBJECTIVE: GENERAL: The patient looked comfortable. He was holding a Ventimask to his face. He was bothered by nasal cannula. HEENT: His pupils were reactive to light. Nasal passages were narrow. Mouth exam was negative. NECK: The neck veins were mildly distended when the patient was at about 15 degrees elevation. They did empty with changes in respiration. There may have been some hepatojugular reflux, however. HEART: Heart rate was 80 per minute. Blood pressure was 155/90. He may have a subtle S3 gallop. LUNGS: Lung benson revealed rales bilaterally posteriorly. Respiratory rate was 18 breaths per minute. Room air saturation this morning was 91%. ABDOMEN: Soft. Bowel sounds were present. There was no tenderness to palpation or masses. EXTREMITIES: Showed no cyanosis, clubbing or edema. LABORATORY DATA: White count most recently was 2 days ago and it was 7.83 and the hemoglobin then was 13.6. Electrolytes were most recently done 2 days ago, showing sodium 138, potassium 3.8, chloride 102, bicarb 30. BUN was 13 with a creatinine of 0.74. I did review the patient's CAT scan of the chest. He has fairly large ground-glass areas in the upper lung benson, greater on the right than the left. Elsewhere are what appear to be interstitial changes and somewhat more peripheral. IMPRESSIONS: 1. Possible hypersensitivity pneumonitis. 2. Asthma by history. 3. Ground-glass changes in the upper lung benson. 4. Rule out congestive heart failure. COMMENTS: The patient still seems more symptomatic than one would expect. He states he has a history of asthma since his 40s. He does not sound like he is having an asthma exacerbation, however. On examination, he just has rales. This could be part of a hypersensitivity problem related to the mold exposure. I cannot exclude some underlying cardiac abnormality, however. I am going to order BNP and would suggest doing an echocardiogram for completeness. Otherwise, I would continue with his antibiotic coverage which currently is levofloxacin and with the steroids which are currently methylprednisolone 60 mg q. 12 hours. Would continue with the neb treatments. MTDD
[2017-01-31] MEDS: LEVOFLOXACIN 500 MG TAB PO SCH (12:50)
--- NOTE | 2017-01-31 15:31 | ECHOCARDIOGRAM REPORT ---
*NOTICE TO RECEIVING [employer] This information is strictly Confidential and protected under [place] law. [place] law prohibits you from making any further disclosure of this information unless further disclosure is expressly permitted by the written consent of the person to whom it pertains or is authorized by law. A general authorization for the release of medical or other information is not sufficient for this purpose. Hospital accepts no responsibility if the information is made available to any other person, INCLUDING THE PATIENT. Interpretation Summary * Name: LELO CONCEPCION Study Date: 01/31/2017 01:12 PM BP: 155/90 mmHg * Patient Location: [facility]\S\N280\S\2 HR: 95 * : 1965 (M/d/yyyy) Gender: Male Height: 69 in * Age: 51 yrs Ethnicity: CA Weight: 201 lb * Ordering Physician: Yarely Ho * Referring Physician: Self, Referred * Performed By: Brigitte Muro RCS * * Reason For Study: Murmurs * BSA: 2.1 m2 * The study was technically adequate. * -- Conclusions -- * Ejection Fraction = 65-70%. * Pulse wave TDI of the anterior and posterior mitral annulas demonstrates normal LV relaxation * No significant valvular disease. Procedure Details * A complete two-dimensional transthoracic echocardiogram was performed (2D, M-mode, Doppler and color flow Doppler). * A contrast injection of Definity was performed to improve assessment of LV function. * Contrast was injected into an intravenous site in the right arm. * One vial of Definity ultrasound contrast was diluted in normal saline to a total volume of 10 ml. A total of '2' ml of solution was administered during imaging. * Lot # [id number] of Definity utilized for procedure. * Expiration date 1APR18. * The attending nurse who injected the contrast agent was Brigitte Stallworth RN. Left Ventricle * The left ventricle is normal in size. * There is no thrombus. * There is normal left ventricular wall thickness. * Left ventricular systolic function is normal. * Ejection Fraction = 65-70%. * The left ventricular wall motion is normal. Right Ventricle * The right ventricle is normal size. * The right ventricular systolic function is normal as assessed by tricuspid annular plane systolic excursion (TAPSE) (normal >1.5 cm). Atria * The left atrial size is normal. * Right atrial size is normal. * There is no evidence of atrial septal defect, but resolution does not allow assessment for a patent foramen ovale. Mitral Valve * The mitral valve is normal. * There is no mitral valve stenosis. * Significant mitral regurgitation is absent. Tricuspid Valve * The tricuspid valve is not well visualized. * There is no tricuspid stenosis. * There is trace tricuspid regurgitation. Aortic Valve * The aortic valve is trileaflet. * Aortic stenosis is absent. * There is no significant aortic regurgitation. Pulmonic Valve * The pulmonary valve is inadequately visualized, but the Doppler data is adequate for interpretation. * Pulmonic stenosis is absent. * Mild pulmonic valvular regurgitation. Great Vessels * The aortic root is normal size. Pericardium/Pleural * There is no pericardial effusion. Great Vessels * Normal inferior vena cava diameter and respiratory variation suggests normal central venous pressure. Left Ventricular Diastolic Function * Pulse wave TDI of the anterior and posterior mitral annulas demonstrates normal LV relaxation MMode 2D Measurements and Calculations IVSd 1.0 cm IVSs 1.2 cm LVIDd 4.1 cm LVIDs 2.4 cm LVPWd 1.0 cm LVPWs 1.2 cm IVS/LVPW 1.0 FS 40.4 % EDV(Teich) 73.8 ml ESV(Teich) 21.0 ml EF(Teich) 71.5 % EDV(cubed) 68.4 ml ESV(cubed) 14.5 ml EF(cubed) 78.8 % % IVS thick 11.1 % % LVPW thick 20.6 % LV mass(C)d 137.0 grams LV mass(C)dI 66.2 grams/m\S\2 LV mass(C)s 81.7 grams LV mass(C)sI 39.5 grams/m\S\2 CO(Teich) 4.8 l/min CI(Teich) 2.3 l/min/m\S\2 SV(Teich) 52.8 ml SI(Teich) 25.5 ml/m\S\2 CO(cubed) 4.8 l/min CI(cubed) 2.3 l/min/m\S\2 SV(cubed) 53.9 ml SI(cubed) 26.0 ml/m\S\2 Ao root diam 3.8 cm Ao root area 11.5 cm\S\2 ACS 2.1 cm LA dimension 3.4 cm LA/Ao 0.88 LVAd ap4 38.3 cm\S\2 LVLd ap4 10.3 cm EDV(MOD-sp4) 117.0 ml LVAs ap4 18.0 cm\S\2 LVLs ap4 8.2 cm ESV(MOD-sp4) 32.0 ml EF(MOD-sp4) 72.6 % LVAd ap2 35.1 cm\S\2 LVLd ap2 9.4 cm EDV(MOD-sp2) 106.0 ml LVAs ap2 18.9 cm\S\2 LVLs ap2 7.9 cm ESV(MOD-sp2) 36.0 ml EF(MOD-sp2) 66.0 % CO(MOD-sp4) 7.7 l/min CI(MOD-sp4) 3.7 l/min/m\S\2 SV(MOD-sp4) 85.0 ml SI(MOD-sp4) 41.1 ml/m\S\2 CO(MOD-sp2) 6.3 l/min CI(MOD-sp2) 3.0 l/min/m\S\2 SV(MOD-sp2) 70.0 ml SI(MOD-sp2) 33.8 ml/m\S\2 Doppler Measurements and Calculations MV E max ivory 84.9 cm/sec MV A max ivory 107.0 cm/sec MV E/A 0.79 MV P1/2t max ivory 129.1 cm/sec MV P1/2t 62.2 msec MVA(P1/2t) 3.5 cm\S\2 MV dec slope 608.3 cm/sec\S\2 MV dec time 0.22 sec Ao V2 max 137.9 cm/sec Ao max PG 7.6 mmHg Ao max PG (full) 0.76 mmHg LV V1 max PG 6.8 mmHg LV V1 max 130.8 cm/sec PA V2 max 113.0 cm/sec PA max PG 5.1 mmHg PI max ivory 160.0 cm/sec PI max PG 10.2 mmHg PI dec slope 149.6 cm/sec\S\2 PI P1/2t 313.3 msec TR max ivory 172.6 cm/sec
--- NOTE | 2017-01-31 17:41 | Progress Note ---
Internal Med Progress Note Date of Service: January 31, 2017. Provider Documentation: SUBJECTIVE: pt found breathing in RA feels oK at rest , mentions of being SOB while going to bathroom has non productive cough no complain of chest pain , no fever OBJECTIVE: Vital Signs-as noted below Exam: General-no apparent distress Eyes-sclera non icteric ENT-on venturi mask Lungs-improved aeration in both lungs form before Heart-regular Abdomen-soft, non tender Extremities-no rash or deformity Neuro-no focal neurological deficit Lab data as noted below. ASSESSMENT & PLAN: ACUTE HYPOXIC RESPIRATORY FAILURE -possible due to interstitial lung disease /community acquired pneumonia pt presented with worsening SOB, wheezing and productive cough; failed outpatient treatment -hypoxic to 83% on room air; required 6 L 02 via mask ( was not on home 02 ) -CXR + bibasilar infiltrates -blood and sputum cx -no growth , sputum culture light normal idris -flu PCR-negative hx of smoking and mold exposure -pt counseled regarding importance of smoking cessation -on Levaquin and Xopenex nebs -stared on IV Solu Medrol -will start to wean down and transition to PO Prednisone in next 24-48 hrs -cont oxygen supplementation; wean as tolerated -CT of chest with contrast : 1. Diffuse bilateral interstitial infiltrative change. 2. Ground glass opacities in the upper lung regions bilaterally. 3. The overall pattern is similar as compared to the prior study. 4. No regions of consolidation. 5. Differential considerations include pneumonitis versus atypical pulmonary edema. -pulmonology eval requested -appreciate input possible interstitial pneumonitis due to environmental pathogen -exposure to molds /tobacco smoking etc recommend to gradually transition to PO Prednisone ECHO :shows no wall motion abnormality , no evidence of CHF Pro BNP -wnl will need inhaled steroid on discharge pt has nebulizer machine at home -mentions Duo neb tx does not help him getting better relief with Xopenex neb script for Xoponex sent to his pharmacy pt is counselled for smoking cessation now on the process of being moved out of the prior house with mold 2 step exercise prior to discharge if remains hypoxic persistently pulmonology follow up as out pt DEPRESSION -stable -cont Paxil and Elavil -monitor DYSLIPIDEMIA -cont statin DVT PROPHYLAXIS -Low VTE risk -SCDs and ambulation CODE STATUS -FULL CODE status DISPOSITION Expected to return home when medically stable Medicine follow up with Dr Sweeney out pt follow up with pulmonology social service consult requested to assist family in their current living situation update given to at bedside Vital Signs: Date Time Temp Pulse Resp B/P Pulse Ox O2 Delivery O2 Flow Rate FiO2 01/31/17 16:00 Room Air 6.0 28 Venturi Mask 01/31/17 15:54 72 16 92 Room Air 01/31/17 15:32 36.6 92 18 153/95 93 Room Air 01/31/17 08:00 Room Air 6.0 28 Venturi Mask 01/31/17 07:35 36.4 74 18 155/90 91 Room Air 01/31/17 07:12 72 16 92 Room Air 01/31/17 01:49 84 16 94 Venturi Mask 6.0 28 01/31/17 00:00 Room Air 6.0 Venturi Mask 01/30/17 23:22 36.4 85 20 158/91 94 6.0 01/30/17 19:42 86 16 93 Room Air Lab Results: Results Past 24 Hours Test 01/31/17 12:11 Range/Units Pro-B-Type Natriuretic Peptide 259 0-900 pg/ml
[2017-01-31] MEDS ORDERED: XPNINS1255 INH (19:13)
[2017-01-31] MEDS ORDERED: ATRINS INH (19:13)
[2017-01-31] MEDS: PRAVASTATIN SOD 40 MG TAB PO SCH (20:27)
[2017-01-31] MEDS: AMITRIPTYLINE HCL 50 MG TAB PO SCH (20:27)
[2017-02-01] VITALS (8 sets, daily range): BP systolic 134–149; BP diastolic 84–90; PULSE 76–125; TEMP 36.5; O2SAT 89–96
[2017-02-01] MEDS: LEVALBUTEROL 1.25MG/0.5ML NEB INH SCH ×4 (01:51→20:05)
[2017-02-01] MEDS: IPRATROPIUM BROMIDE NEB SOLN 0.02% 2.5 ML VIAL INH SCH ×4 (01:51→20:05)
[2017-02-01] MEDS ORDERED: METHYLPREDNISOLONE IV 40 MG in SYRINGE 0 ML IV. SCH (06:00)
[2017-02-01] MEDS: PAROXETINE 20 MG TAB PO SCH (07:48)
[2017-02-01] MEDS: RANITIDINE HCL 150 MG TAB PO SCH ×2 (07:48→21:29)
[2017-02-01] MEDS: ASPIRIN 325 MG ECTAB PO SCH ×2 (07:48→21:31)
[2017-02-01] MEDS: OMEGA-3 (PURIFIED FISH OIL) 1 GM CAP PO SCH (07:48)
[2017-02-01] MEDS: LEVOFLOXACIN 500 MG TAB PO SCH (10:32)
--- NOTE | 2017-02-01 11:32 | Progress Note ---
Medicine Progress Note Date & Time of Visit: February 01, 2017 at 11:14. Subjective Pt was seen and examined Sitting in chair with no distress Pt said that he is feeling much better he said that his breathing seems to improve slightly Denies any any chest pain, palpitation, dizziness Objective Last 8 Hrs Date Time Temp Pulse Resp B/P Pulse Ox O2 Delivery O2 Flow Rate FiO2 02/01/17 08:00 Room Air 6.0 02/01/17 07:03 80 16 93 Room Air 02/01/17 06:54 36.5 76 20 149/90 92 Room Air Physical Exam: General- No acute distress Head- atraumatic Eyes- PERRL, EOMI ENT- oropharynx clear Neck- supple, no JVD Lungs- No wheezing, very mild crackle Heart- regular rhythm; no murmur Abdomen- normal bowel sounds, soft Extremities- no pretibial edema, no calf tenderness Neuro- alert, oriented x 3; PERRL, EOMI; no facial palsy Skin- warm & dry Laboratory Results: Last 24 Hours Test 01/31/17 12:11 Pro-B-Type Natriuretic Peptide 259 pg/ml Assessment & Plan ACUTE HYPOXIC RESPIRATORY FAILURE pt presented with worsening SOB, wheezing and productive cough; failed outpatient treatment possible due to interstitial lung disease /community acquired pneumonia hypoxic to 83% on room air on admission and was required 6 L 02 via mask ( was not on home 02 ) CXR showed bibasilar infiltrates Blood and urine-no growth Sputum culture light normal idris Flu PCR-negative Counseled on smoking cessation Continue Levaquin and Xopenex nebs script for Xoponex already sent to his pharmacy workup fo environmental pathogen/molds pending Pulmonary consulted recommened 4-6 weeks course of prednisone taper dose and once complete the course, he can start on inhale steroid. Will decrease solumedrol to 40mg BID Clinically improved. Saturated on RA at 93% Will need follow up with pulmonology as an outpatient CT of chest with contrast : 1. Diffuse bilateral interstitial infiltrative change. 2. Ground glass opacities in the upper lung regions bilaterally. 3. The overall pattern is similar as compared to the prior study. 4. No regions of consolidation. 2D ECHO: The left ventricle is normal in size. * There is no thrombus. * There is normal left ventricular wall thickness. * Left ventricular systolic function is normal. * Ejection Fraction = 65-70%. * The left ventricular wall motion is normal. DEPRESSION -stable -cont Paxil and Elavil -monitor DYSLIPIDEMIA -cont statin DVT PROPHYLAXIS -Low VTE risk -SCDs and ambulation CODE STATUS FULL CODE DISPOSITION Expected to discharge home possible tomorrow Medicine follow up with Dr Sweeney Outpatient follow up with pulmonology social service consult requested to assist family in their current living situation Consultants: Pulmonology Current Inpatient Medications: Current Inpatient Medications Medications (Trade) Dose Ordered Sig/Nemo Route Start Time Stop Time Status Last Admin Dose Admin Acetaminophen (Tylenol Tab) 650 mg Q4H PRN PO 01/28/17 14:30 02/27/17 14:29 01/28/17 17:54 650 MG Ondansetron HCl (Zofran Inj) 4 mg Q6H PRN IV 01/28/17 14:30 02/27/17 14:29 Nitroglycerin (Nitrostat Tab) 0.4 mg UD PRN SL 01/28/17 14:30 02/27/17 14:29 Amitriptyline HCl (Elavil Tab) 50 mg HS PO 01/28/17 21:00 02/27/17 20:59 01/31/17 20:27 50 MG Aspirin (Ecotrin Tab) 325 mg DAILY PO 01/29/17 09:00 02/28/17 08:59 02/01/17 07:48 325 MG Fish Oil ([place]-3 (Purified Fish Oil) Cap) 1 gm DAILY PO 01/29/17 09:00 02/28/17 08:59 02/01/17 07:48 1 GM Paroxetine HCl (pAXil TAB) 40 mg DAILY PO 01/29/17 09:00 02/28/17 08:59 02/01/17 07:48 40 MG Pravastatin Sodium (Pravachol Tab) 40 mg HS PO 01/28/17 21:00 02/27/17 20:59 01/31/17 20:27 40 MG Sumatriptan Succinate (Imitrex Tab) 50 mg ONCE PRN PO 01/28/17 14:45 Ranitidine HCl (zANTac TAB) 300 mg BID PO 01/28/17 21:00 02/27/17 20:59 02/01/17 07:48 300 MG Ipratropium [place] (Atrovent 0.02% 0.5MG/2.5ML Neb) 0.5 mg Q6R INH 01/28/17 15:00 02/27/17 14:59 02/01/17 07:03 0.5 MG Levalbuterol (Xopenex 1.25MG/ 0.5ML Neb) 1.25 mg Q6R INH 01/28/17 15:00 02/27/17 14:59 02/01/17 07:03 1.25 MG Ioversol (Optiray 320) 111 ml UD PRN IV 01/29/17 18:15 02/02/17 18:14 Levofloxacin 500 mg 500 mg DAILY@11 PO 01/31/17 11:00 02/05/17 10:59 02/01/17 10:32 500 MG Methylprednisolone Sodium Succinate/ Syringe (Solu-Medrol IV/ Syringe) 0.64 ml @ 1.5 mls/min Q12@0600,1800 IV. 02/01/17 06:00 03/03/17 05:59 02/01/17 06:29 1.5 MLS/MIN
--- NOTE | 2017-02-01 11:33 | PROGRESS NOTE ---
DATE: 02/01/2017 PROBLEM LIST: Includes: 1. Asthma. 2. Possible hypersensitivity pneumonitis. 3. Ground-glass changes in the upper lobe. SUBJECTIVE: The patient reports that his breathing is doing better today. He is able to be off the oxygen for longer period of time. He states that the only time that he really gets short of breath at present is when he has coughing paroxysms. He states that he is able to walk up to the bathroom without any difficulty. He is not having any chest pain. He states that he does feel like he has mucus down in his chest that he cannot cough up. He states that this is an ongoing issue, he has had this for several years. He has not had any fever or chills, no night sweats, no sweats in general. He denies any other concerns or problems at this time. No GI difficulties. No nausea or vomiting, ingestion or heartburn. He denies any difficulty swallowing. He denies any choking on his food. No changes in his bowels. No difficulty voiding. No swelling in his extremities. OBJECTIVE: GENERAL: The patient is a 51-year-old male in no acute distress. He is alert and oriented x3. Mood is good. Affect is good. VITAL SIGNS: Temp 36.5, pulse 76, respirations 20, blood pressure is 149/90, pulse ox 92% on room air. HEENT: Normocephalic, atraumatic. Pupils equal, round and reactive to light and accommodation. Extraocular movements are intact. [place] moist gingival and buccal mucosa. NECK: Supple. No mass. No adenopathy, no bruits noted. CHEST: The patient has few expiratory wheeze diffusely throughout. There is no rale or rhonchi. He has fairly good air movement throughout. CARDIOVASCULAR: Regular rate and rhythm. There are no murmurs, gallops or rubs. ABDOMEN: Bowel sounds present. Abdomen soft, nontender. No guarding, rigidity or organomegaly. EXTREMITIES: No erythema or edema. No tenderness to palpation. NEUROLOGIC: Cranial nerves II through XII are intact. No focal deficit noted. LABORATORY DATA: Hyperintensity pneumonitis panel still pending. Sputum cultures are showing light normal idris. IMAGING DATA: No new imaging data. IMPRESSION: A 51-year-old male who presented with some dyspnea and hypoxia with possible hypersensitivity pneumonitis is evaluated today. He is doing much better and feels that he is getting pretty close to being back to his baseline. He just still require a little bit of oxygen and is getting short of breath with coughing paroxysms. Otherwise, no significant changes. He has not really been out moving around yet and this was encouraged today. Unfortunately, he still feels like he does have some secretions that are not moving in his chest. At this point, will try a flutter valve to see if this is helpful for him. He is to continue current course of treatment with the exception of transitioning his steroids over to oral and this was discussed with the hospitalist, Dr. Bean. Otherwise, continue aggressive pulmonary toilet. Continue Levaquin. Did encourage patient to ambulate. We will continue to follow through hospitalization.
[2017-02-01] MEDS: METHYLPREDNISOLONE IV 40 MG in SYRINGE 0 ML IV. SCH (21:29)
[2017-02-01] MEDS: PRAVASTATIN SOD 40 MG TAB PO SCH (21:30)
[2017-02-01] MEDS: AMITRIPTYLINE HCL 50 MG TAB PO SCH (21:30)
[2017-02-02 01:45] VITALS: PULSE 88; O2SAT 97
[2017-02-02] MEDS: LEVALBUTEROL 1.25MG/0.5ML NEB INH SCH ×3 (01:45→14:57)
[2017-02-02] MEDS: IPRATROPIUM BROMIDE NEB SOLN 0.02% 2.5 ML VIAL INH SCH ×3 (01:45→14:57)
[2017-02-02 05:18] VITALS: BP 137/83; PULSE 76; TEMP 36.9; O2SAT 93
[2017-02-02 07:15] VITALS: PULSE 88; O2SAT 96
[2017-02-02] MEDS: PAROXETINE 20 MG TAB PO SCH (07:51)
[2017-02-02] MEDS: LEVOFLOXACIN 500 MG TAB PO SCH (07:51)
[2017-02-02] MEDS: RANITIDINE HCL 150 MG TAB PO SCH (07:51)
[2017-02-02] MEDS: OMEGA-3 (PURIFIED FISH OIL) 1 GM CAP PO SCH (07:51)
[2017-02-02] MEDS: METHYLPREDNISOLONE IV 40 MG in SYRINGE 0 ML IV. SCH (08:58)
--- NOTE | 2017-02-02 10:52 | Progress Note ---
Medicine Progress Note Date & Time of Visit: February 02, 2017 at 10:45. Subjective Pt was seen and examined Sitting in bed very comfortable watching TV with no distress Pt said that he feels much better today he said that his breathing seems to be back to normal. He walks a few in the hallway with no discomfort. Denies any chest pain, palpitation dizziness and SOB Objective Last 8 Hrs Date Time Temp Pulse Resp B/P Pulse Ox O2 Delivery O2 Flow Rate FiO2 02/02/17 08:00 Room Air 02/02/17 07:15 88 12 96 Room Air 02/02/17 05:18 36.9 76 16 137/83 93 Room Air Physical Exam: General- No acute distress Head- atraumatic Eyes- PERRL, EOMI ENT- oropharynx clear Neck- supple, no JVD Lungs- No wheezing, no rales Heart- regular rhythm; no murmur Abdomen- normal bowel sounds, soft Extremities- no pretibial edema, no calf tenderness Neuro- alert, oriented x 3; PERRL, EOMI; no facial palsy Skin- warm & dry Assessment & Plan ACUTE HYPOXIC RESPIRATORY FAILURE pt presented with worsening SOB, wheezing and productive cough; failed outpatient treatment possible due to interstitial lung disease /community acquired pneumonia hypoxic to 83% on room air on admission and was required 6 L 02 via mask ( was not on home 02 ) CXR showed bibasilar infiltrates Blood and urine-no growth Sputum culture light normal idris Flu PCR-negative Counseled on smoking cessation Continue Levaquin and Xopenex nebs script for Xoponex already sent to his pharmacy workup fo environmental pathogen/molds pending Pulmonary consulted recommened 4-6 weeks course of prednisone taper dose and once complete the course, he can start on inhale steroid. will discharge on prednisone taper dose Saturated on RA at 96% Will need follow up with pulmonology as an outpatient Clinically stable CT of chest with contrast : 1. Diffuse bilateral interstitial infiltrative change. 2. Ground glass opacities in the upper lung regions bilaterally. 3. The overall pattern is similar as compared to the prior study. 4. No regions of consolidation. 2D ECHO: The left ventricle is normal in size. * There is no thrombus. * There is normal left ventricular wall thickness. * Left ventricular systolic function is normal. * Ejection Fraction = 65-70%. * The left ventricular wall motion is normal. DEPRESSION -stable -cont Paxil and Elavil -monitor DYSLIPIDEMIA -cont statin DVT PROPHYLAXIS -Low VTE risk -SCDs and ambulation CODE STATUS FULL CODE DISPOSITION Expected to discharge home today Medicine follow up with Dr Sweeney Outpatient follow up with pulmonology social service consult requested to assist family in their current living situation Consultants: Pulmonology Current Inpatient Medications: Current Inpatient Medications Medications (Trade) Dose Ordered Sig/[place] Route Start Time Stop Time Status Last Admin Dose Admin Acetaminophen (Tylenol Tab) 650 mg Q4H PRN PO 01/28/17 14:30 02/27/17 14:29 01/28/17 17:54 650 MG Ondansetron HCl (Zofran Inj) 4 mg Q6H PRN IV 01/28/17 14:30 02/27/17 14:29 Nitroglycerin (Nitrostat Tab) 0.4 mg UD PRN SL 01/28/17 14:30 02/27/17 14:29 Amitriptyline HCl (Elavil Tab) 50 mg HS PO 01/28/17 21:00 02/27/17 20:59 02/01/17 21:30 50 MG Aspirin (Ecotrin Tab) 325 mg DAILY PO 01/29/17 09:00 02/28/17 08:59 02/01/17 21:31 325 MG Fish Oil ([place]-3 (Purified Fish Oil) Cap) 1 gm DAILY PO 01/29/17 09:00 02/28/17 08:59 02/02/17 07:51 1 GM Paroxetine HCl (pAXil TAB) 40 mg DAILY PO 01/29/17 09:00 02/28/17 08:59 02/02/17 07:51 40 MG Pravastatin Sodium (Pravachol Tab) 40 mg HS PO 01/28/17 21:00 02/27/17 20:59 02/01/17 21:30 40 MG Sumatriptan Succinate (Imitrex Tab) 50 mg ONCE PRN PO 01/28/17 14:45 Ranitidine HCl (zANTac TAB) 300 mg BID PO 01/28/17 21:00 02/27/17 20:59 02/02/17 07:51 300 MG Ipratropium [place] (Atrovent 0.02% 0.5MG/2.5ML Neb) 0.5 mg Q6R INH 01/28/17 15:00 02/27/17 14:59 02/02/17 07:15 0.5 MG Levalbuterol (Xopenex 1.25MG/ 0.5ML Neb) 1.25 mg Q6R INH 01/28/17 15:00 02/27/17 14:59 02/02/17 07:15 1.25 MG Ioversol (Optiray 320) 111 ml UD PRN IV 01/29/17 18:15 02/02/17 18:14 Levofloxacin 500 mg 500 mg DAILY@11 PO 01/31/17 11:00 02/05/17 10:59 02/02/17 07:51 500 MG Methylprednisolone Sodium Succinate/ Syringe (Solu-Medrol IV/ Syringe) 0.64 ml @ 1.5 mls/min BID IV. 02/01/17 21:00 03/03/17 20:59 02/02/17 08:58 1.5 MLS/MIN
[2017-02-02 14:57] VITALS: PULSE 88; O2SAT 96
[2017-02-02 15:13] VITALS: BP 123/73; PULSE 106; TEMP 36.4; O2SAT 92
[2017-02-02] MEDS ORDERED: PRED10TA PO (15:19)
[2017-02-02] MEDS ORDERED: LVQ500 PO (15:19)
--- NOTE | 2017-02-02 15:31 | Discharge Instructions ---
Discharge Instructions Date of Service February 02, 2017. Admission Reason for Admission: Pneumonia, Sob Discharge Discharge Diagnosis / Problem: Pneumonia, Hypersensitivity pneumonitis Discharge Goals Goal(s): Decrease discomfort, Improve function, Improve disease control Activity Recommendations Activity Limitations: resume your previous activity . Instructions / Follow-Up Instructions / Follow-Up Follow up with Dr. Sweeney on 02/07 @ 12:45 pm Prednisone taper dose for 4 weeks Complete 2 more days for Levaquin Consider inhaled corticosteroid once complete the course of taper dose prednisone CT chest showed ground glass opacities in the upper lung regions bilaterally, Need CT follow up in 2 to 3 months If Shortness of breath occurs or worsening please seek medical attention Follow up with Pulmonology between 1 to 2 months Counseling on smoking cessation Current Hospital Diet Patient's current hospital diet: Regular Diet Discharge Diet Recommended Diet: Regular Diet Pending Studies Studies pending at discharge: yes List of pending studies: workup fo environmental pathogen/molds pending Medical Emergencies . Who to Call and When: Medical Emergencies: If at any time you feel your situation is an emergency, please call 911 immediately. . Non-Emergent Contact Non-Emergency issues call your: Primary Care Provider Call Non-Emergent contact if: you have any medication questions . . "Provider Documentation" section prepared by Barbara Bean. . VTE Core Measure Inpt VTE Proph given/why not?: SCD's
--- NOTE | 2017-02-02 15:46 | PULMONARY PROGRESS NOTE ---
DATE: 02/02/2017 TIME: 03:10 p.m. SUBJECTIVE: The patient states he feels great. His breathing is much improved. His cough is much less. He is not expectorating any phlegm. He has had no chest pains, chills, fevers or sweats. OBJECTIVE: GENERAL: The patient appeared comfortable. Temperature is 36.9. EARS, NOSE, AND THROAT: Unremarkable. VITAL SIGNS: Heart rate is 88 per minute. Blood pressure 137/83. LUNGS: Lung benson were almost clear bilaterally. Saturations were 96% on room air. Respiratory rate was 18 breaths per minute and not labored. EXTREMITIES: Showed no edema. IMPRESSIONS: 1. Asthma. 2. Ground-glass changes, right upper lobe and left upper lobe. 3. Rule out hypersensitivity pneumonitis. COMMENTS AND RECOMMENDATIONS: The patient is clinically much improved. The hypersensitivity study is still pending. I have no objection to discharge with the way he is. He obviously would need to go home on prednisone. I suspect it is because of the steroids that he feels so well. We suggest 40 mg a day for at least a week and then start to taper gradually. The patient does need ultimately a followup CAT scan of the chest in about 3 months because of the ground-glass changes. If that does not clear, we might need bronchoscopy. If he clinically worsens again, he might need bronchoscopy. He could be seen as an outpatient if desired by his primary doctor. Alternatively, if he is asymptomatic and his CAT scan clears, he may well not need to be seen by pulmonary. ARINA
[2017-02-02 16:54] VITALS: BP 123/73; PULSE 106; TEMP 36.4; O2SAT 92
--- NOTE | 2017-02-02 18:50 | Discharge Summary ---
Discharge Summary Date of Service February 02, 2017. Discharge Summary Admission Date: January 28, 2017 at 14:32 Discharge Date: February 02, 2017 Discharge Disposition: Home Principal Diagnosis: ACUTE HYPOXIC RESPIRATORY FAILURE Secondary Diagnoses/Problems: Pneumonia Hypersensitivity pneumonitis Depression Dyslipidemia Procedures: CHEST CT WITH CONTRAST CT DOSE: 469.24 mGy.cm HISTORY: Dyspnea SOB /hypoxia TECHNIQUE: Multiaxial CT images of the chest were performed following the intravenous administration of contrast. COMPARISON: 10/17/2016 FINDINGS: Diffuse bilateral interstitial infiltrative change. There are no consolidative changes. Several small reactive nodes are present. Groundglass opacities are identified primarily in the pulmonary apical regions. This is similar in appearance compared to the prior study. Thoracic aorta is tortuous and ectatic. IMPRESSION: 1. Diffuse bilateral interstitial infiltrative change. 2. Groundglass opacities in the upper lung regions bilaterally. 3. The overall pattern is similar as compared to the prior study. 4. No regions of consolidation. 5. Differential considerations include pneumonitis versus atypical pulmonary edema. Electronically signed by: Sergey Levine M.D. 01/29/2017 7:23 PM Dictated Date/Time: 01/29/2017 7:19 PM ECHO Interpretation Summary * Name: LELO CONCEPCION Study Date: 01/31/2017 01:12 PM BP: 155/90 mmHg * Patient Location: [facility]\\S\\N280\\S\\2 HR: 95 * : 1965 (M/d/yyyy) Gender: Male Height: 69 in * Age: 51 yrs Ethnicity: MD Weight: 201 lb * Ordering Physician: Yarely Ho * Referring Physician: Self, Referred * Performed By: Brigitte Muro RCS * * Reason For Study: Murmurs * BSA: 2.1 m2 * The study was technically adequate. * -- Conclusions -- * Ejection Fraction = 65-70%. * Pulse wave TDI of the anterior and posterior mitral annulas demonstrates normal LV relaxation * No significant valvular disease. Procedure Details * A complete two-dimensional transthoracic echocardiogram was performed (2D, M- mode, Doppler and color flow Doppler). * A contrast injection of Definity was performed to improve assessment of LV function. * Contrast was injected into an intravenous site in the right arm. * One vial of Definity ultrasound contrast was diluted in normal saline to a total volume of 10 ml. A total of '2' ml of solution was administered during imaging. * Lot # [id number] of Definity utilized for procedure. * Expiration date 1APR18. * The attending nurse who injected the contrast agent was Brigitte Stallworth RN. Left Ventricle * The left ventricle is normal in size. * There is no thrombus. * There is normal left ventricular wall thickness. * Left ventricular systolic function is normal. * Ejection Fraction = 65-70%. * The left ventricular wall motion is normal. Right Ventricle * The right ventricle is normal size. * The right ventricular systolic function is normal as assessed by tricuspid annular plane systolic excursion (TAPSE) (normal >1.5 cm). Atria * The left atrial size is normal. * Right atrial size is normal. * There is no evidence of atrial septal defect, but resolution does not allow assessment for a patent foramen ovale. Mitral Valve * The mitral valve is normal. * There is no mitral valve stenosis. * Significant mitral regurgitation is absent. Tricuspid Valve * The tricuspid valve is not well visualized. * There is no tricuspid stenosis. * There is trace tricuspid regurgitation. Aortic Valve * The aortic valve is trileaflet. * Aortic stenosis is absent. * There is no significant aortic regurgitation. Pulmonic Valve * The pulmonary valve is inadequately visualized, but the Doppler data is adequate for interpretation. * Pulmonic stenosis is absent. * Mild pulmonic valvular regurgitation. Great Vessels * The aortic root is normal size. Pericardium/Pleural * There is no pericardial effusion. Great Vessels * Normal inferior vena cava diameter and respiratory variation suggests normal central venous pressure. Left Ventricular Diastolic Function * Pulse wave TDI of the anterior and posterior mitral annulas demonstrates normal LV relaxation Consultations: Pulmonology Medication Reconciliation New Medications: Ipratropium Malone (Ipratropium Malone) 0.5 Mg/2.5 Ml Nebu 0.5 MG INH Q6R PRN for SOB/Wheezing for 30 Days, #30 ML 3 Refills Levalbuterol (Levalbuterol) 1.25 Mg/0.5 Ml Nebu 1.25 MG INH Q6R PRN for SOB/Wheezing for 30 Days, #30 ML 2 Refills Levofloxacin (Levofloxacin) 500 Mg Tab 500 MG PO DAILY@11 for 2 Days, TAB Changed Medications: Prednisone Tab (Prednisone) 10 Mg Tab 10 MG PO UD for 28 Days, TAB (Changed from: Take 5 tablets x 2 days, 4 tablets x 2 days, 3 tablets x 2 days, 2 tablets x 2 days, 1 tab x 2 days; stop date 02/04) Take 4 tablets x 7 days, then 3 tablets x 7 days, then 2 tablets x7 days, then 1 tablet x 7 days; then stop Continued Medications: Albuterol Sulfate (Proventil Hfa) 108 Mcg/Act Aer 2 PUFFS INH QID Amitriptyline Hcl (Amitriptyline Hcl) 50 Mg Tab 50 MG PO HS, TAB Aspirin (Aspirin) 325 Mg Tab 325 MG PO DAILY, TAB Fish Oil (Pocola-3) 1 Ea Cap 1 CAP PO DAILY, CAP Fluticasone Propionate (Flovent Hfa) 120 Puffs/26068 Mcg Aero 2 PUFFS INH DAILY for 30 Days, #1 INHALER 2 Refills Paroxetine Hcl (Paxil) 40 Mg Tab 40 MG PO DAILY, TAB Pravastatin Sod (Pravastatin Sodium) 40 Mg Tab 40 MG PO HS Ranitidine Hcl (Ranitidine Hcl) 300 Mg Cap 300 MG PO BID for 90 Days, #180 CAP 3 Refills Sumatriptan Succinate (Imitrex) 50 Mg Tab 50 MG PO PRN, TAB Discontinued Medications: Azithromycin (Zithromax) 250 Mg Tab 250 MG PO DAILY, #4 TAB Ipratropium-Albuterol (Duoneb) 3 Ml Nebu 3 ML INH Q6H PRN for SOB/Wheezing, INHA Admission Information HPI (per Admitting provider): This is a 51 y/o male with PMHx of asthma, tobacco use, Dyslipidemia and other problems as outlined below who presents to the ED c/o worsening SOB x 5 days. Pt reports that 5 days ago he developed fevers, runny nose, sore throat and productive cough. He was seen by his PCP the following day who started Z-pack and Prednisone taper for suspected pneumonitis. Pt has been taking the medication along with his inhalers with no relief. This morning pts breathing got significantly worse and he developed wheezing. Pt has a history of asthma and he is a lifelong smoker. Pt denies diaphoresis, chest pain, abd pain, N/V, bowel or bladder issues, LE edema, calf pain, lightheadedness/dizziness. In the ED, pt is febrile, tachy and hypoxic on room air. No leukocytosis. Mag 1.6. CXR bilateral infiltrates. Pt is stable and will be admitted for further evaluation and treatment. Physical Exam (per Admitting): General Appearance: WD/WN, no apparent distress, + pertinent finding (Pt is sitting up in bed with at bedside ) Head: normocephalic, atraumatic Eyes: normal inspection ENT: hearing grossly normal Neck: supple Respiratory/Chest: chest non-tender, lungs clear, normal breath sounds, no respiratory distress, + pertinent finding (no wheezing or crackles noted) Cardiovascular: regular rate, rhythm, no edema, no murmur Abdomen/GI: normal bowel sounds, non tender, soft Back: normal inspection Extremities/Musculoskelatal: normal inspection, no calf tenderness, no pedal edema Neurologic/Psych: alert, normal mood/affect, oriented x 3 Skin: normal color, warm/dry Hospital Course ACUTE HYPOXIC RESPIRATORY FAILURE pt presented with worsening SOB, wheezing and productive cough; failed outpatient treatment possible due to interstitial lung disease/community acquired pneumonia vs hypersensitivity pneumonitis hypoxic to 83% on room air on admission and was required 6 L 02 via mask ( was not on home 02 ) CXR showed bibasilar infiltrates Blood and urine-no growth Sputum culture light normal idris Flu PCR-negative Counseled on smoking cessation Continue Levaquin and Xopenex nebs script for Xoponex already sent to his pharmacy workup fo environmental pathogen/molds pending Case discussed with Dr. Tierney that recommended to repeat CT chest in 2 to 3 months for follow up on the ground glass on the CT chest Pulmonary consulted recommended 4-6 weeks course of prednisone taper dose and once complete the course, he can start on inhale steroid. will discharge on prednisone taper dose Saturated on RA at 96% Will need follow up with pulmonology as an outpatient Clinically stable CT of chest with contrast : 1. Diffuse bilateral interstitial infiltrative change. 2. Ground glass opacities in the upper lung regions bilaterally. 3. The overall pattern is similar as compared to the prior study. 4. No regions of consolidation. 2D ECHO: The left ventricle is normal in size. * There is no thrombus. * There is normal left ventricular wall thickness. * Left ventricular systolic function is normal. * Ejection Fraction = 65-70%. * The left ventricular wall motion is normal. DEPRESSION -stable -cont Paxil and Elavil -monitor DYSLIPIDEMIA -cont statin DVT PROPHYLAXIS -Low VTE risk -SCDs and ambulation CODE STATUS FULL CODE DISPOSITION Expected to discharge home today Medicine follow up with Dr Sweeney Outpatient follow up with pulmonology social service consult requested to assist family in their current living situation Total time spent on discharge = 35 minutes This includes examination of the patient, discharge planning, medication reconciliation, and communication with other providers. Discharge Instructions Discharge Instructions Date of Service February 02, 2017. Admission Reason for Admission: Pneumonia, Sob Discharge Discharge Diagnosis / Problem: Pneumonia, Hypersensitivity pneumonitis Discharge Goals Goal(s): Decrease discomfort, Improve function, Improve disease control Activity Recommendations Activity Limitations: resume your previous activity . Instructions / Follow-Up Instructions / Follow-Up Follow up with Dr. Sweeney on 02/07 @ 12:45 pm Prednisone taper dose for 4 weeks Complete 2 more days for Levaquin Consider inhaled corticosteroid once complete the course of taper dose prednisone CT chest showed ground glass opacities in the upper lung regions bilaterally, Need CT follow up in 2 to 3 months If Shortness of breath occurs or worsening please seek medical attention Follow up with Pulmonology between 1 to 2 months Counseling on smoking cessation Current Hospital Diet Patient's current hospital diet: Regular Diet Discharge Diet Recommended Diet: Regular Diet Pending Studies Studies pending at discharge: yes List of pending studies: workup fo environmental pathogen/molds pending Medical Emergencies . Who to Call and When: Medical Emergencies: If at any time you feel your situation is an emergency, please call 911 immediately. . Non-Emergent Contact Non-Emergency issues call your: Primary Care Provider Call Non-Emergent contact if: you have any medication questions . . "Provider Documentation" section prepared by Barbara Bean. . VTE Core Measure Inpt VTE Proph given/why not?: SCD's Additional Copies To Brina Sweeney M.D. (MEDICAL)
[2017-02-04 20:19] LABS: ASPERGILLUS FUMIGATUS NEGATIVE (NEGATIVE); M. FAENI (S. RECTIVIRGULA) NEGATIVE (NEGATIVE); PIGEON SERUM NEGATIVE (NEGATIVE); SACCHAROMONOSPORA VIRIDIS AB NEGATIVE (NEGATIVE); THERMOACTINOMYCES CANDIDUS NEGATIVE (NEGATIVE); THERMOACTINOMYCES VULGARIS NEGATIVE (NEGATIVE)
[2017-02-04 22:01] LABS: ALTERNARIA TENUIS IgG 7.6 mcg/mL (< 13.6); CLADOSPORIUM HERBARUM IgG 17.4 mcg/mL (< 14.7); PENICILLIUM NOTATUM IgG 17.3 mcg/mL (< 17.5); PHOMA SPP IgG 5.6 mcg/mL (< 6.6); SACCHAROMONOSPORA RECTIVIR Not detected (Not detected); SACCHAROMONOSPORA VIRIDIS AB Not detected (Not detected); THERMOACTINOMYCES CANDIDUS Not detected (Not detected); THERMOACTINOMYCES SACCHARI Not detected (Not detected); THERMOACTINOMYCES VULGARIS Not detected (Not detected); TRICHODERMA VIRIDE IgG 8.7 mcg/mL (< 13.4)
== END 2017-02-02 18:40 | disposition home or self-care (01) | DRG 193 ==
LOC: ENRESERVDT → ENRESERVTM → C.EDB 10:50 → C.2T 14:32 → C.MED 01-30 12:52 → C.MS2W 02-02 05:00
PROVIDERS: ADMIT Family Medicine; ATTEND Internal Medicine
DX: J18.9 Pneumonia, unspecified organism (principal); J96.91 Respiratory failure, unspecified with hypoxia; J44.1 Chronic obstructive pulmonary disease with (acute) exacerbation; J45.909 Unspecified asthma, uncomplicated; G89.29 Other chronic pain; F32.9 Major depressive disorder, single episode, unspecified; M54.9 Dorsalgia, unspecified; E78.5 Hyperlipidemia, unspecified; K21.9 Gastro-esophageal reflux disease without esophagitis; E83.42 Hypomagnesemia; G47.33 Obstructive sleep apnea (adult) (pediatric); F17.210 Nicotine dependence, cigarettes, uncomplicated; Z79.82 Long term (current) use of aspirin

== ENCOUNTER → 2017-02-08 | Outpatient (CLI) | payer OTHER ==
[~2017-02-08] MED LIST changes: -ALBU1AER9 INH; -ALBU1NEB10 INH; +ALBUAER INH; -ASPCH81X PO; +ASPI325T4 PO; +ATRINS INH; -FISHOIL PO; +LVQ500 PO; +OMEG10007 PO; +PRED10TA PO; +RANI300C PO; -RANI300T PO; +XPNINS1255 INH
--- NOTE | 2017-02-09 06:14 | PAP/PSG TECHNICIAN REPORT ---
[facility] County Judge Polysomnogram Report Study name: None Report date: 02/09/2017 Study date: 02/08/2017 Referring Physician: Fady WORRELL M.D. Name: LELO CONCEPCION Interpreting Physician: Jorge Luis Worrell M.D. Date of : 1965 County Judge: Alan Cali RPSGT. Sex: Male Age: 51 StudyType: PSG Weight: 203 lbs 15 inches Height: 51 years, Height 5' 8" Neck Circum: BMI: 30.86 Medications: ELAVIL 50 MG, PAXIL 40 MG, PRAVACHOL 40 MG, RANITIDINE HCL 300 MG, PROAIR HFA 108 (90) BASE, FLOVENT HFA, ECOTRIN 325 MG, IMITREX 25 MG Patient History PATIENT HAS HISTORY OF SEVERE SNORING, OBESITY, ASTHMA DEPRESSION AND EXCESSIVE DAYTIME SLEEPINESS. 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 HE IS HERE TODAY FOR AN EVALUATION OF GRACIE. ESS = 15 RM 6 Parameters Monitored NPSG: E1-M2, E2-M1, Fp1-M2, Fp2-M1, F3-M2, F4-M2, F4-M1, C3-M2, C4-M2, C4-M1, O1-M2, O2-M2, O2-M1, T3-M2, T4-M1, P3-M2, P4-M1, CHIN1, CHIN2, HR, EKG, Legs, PFLOW, SNOR, FLOW, CFLOW, Tidal Volume, THOR, ABDO, SpO2, PLTH, CPRESS, ETCO2 Wave, ETCO2, pH Sleep Architecture Sleep Stages Time at Lights Off 9:11:56 PM STAGES Time (min.) TST (%) Time at Lights On 5:46:26 AM Wake 46.0 -- Total Recording Time (TRT) 514.50 min. N1 9.0 2 Total Sleep Period (TSP) 479.0 min. N2 196.5 42 Total Sleep Time (TST) 468.5min. N3 224.0 48 Awake Time 46.0 min. REM 39.0 8 Wake after Sleep Onset 10.5 min. Sleep Efficiency (SE) 91 % Sleep Onset Latency (ANTHONY) 35.5 min. Number of Stage 1 Shifts None Awakenings 10 Stage Changes 170 Number of REM periods 9 REM 39.0 8 REM Latency 151.0 min. NREM 429.5 92 Body Position Analysis Supine Right Left Side Prone Vertical Total Sleep Time (min.) 514.5 0.0 0.0 0.00 0.0 0.0 Total Sleep Time (%) 100% 0% 0% 0 0% N/A% Total Sleep Time REM (min.) 39.0 0.0 0.0 None 0.0 0.0 Total Sleep Time NREM (min.) 429.5 0.0 0.0 None 0.0 0.0 Intermittent Wake (min.) 46.0 0.0 0.0 None 0.0 0.0 Total Sleep Period (%) 100% None None None None None Arousals Myoclonus (PLM) * Events Count Index Events Count Index Spontaneous 34 4 Events Awake (PLMW) 53 69.1 Respiratory 20 2.6 Events Asleep w/ Arousal (PLMA) 30 3.8 PLM 30 4 Events Asleep w/o Arousal (PLMS) 505 64.7 Snoring 2 0 Total Asleep 535 68.5 Total 86 11 Total 588 69 Respiratory Analysis * CA OA MA CH H RERA Total Count 1 4 0 0 86 1 91 Index 0.1 0.5 0.0 0 11.0 0 11.8 Mean Duration 14.4 15.4 0.0 0.00 16.3 12.6 16.2 Longest Duration 14.4 21.4 0.0 0.00 0.0 12.6 41.1 Respiratory Event Summary Total Supine ~Supine Right Left Prone REM NREM Apneas Count 5 5 N/A N/A N/A N/A 1 4 Index 0.6 1 N/A N/A N/A N/A 2 1 Hypopneas (4% Desat) Count 86 86 N/A N/A N/A N/A 25 61 Index 11.0 11.0 N/A N/A N/A N/A 38.5 8.5 Apneas & All Hypopneas Count 91 91 N/A N/A N/A N/A 26 65 Index 11.7 12 N/A N/A N/A N/A 40.0 9.1 Respiratory Events (Belting Inspector+All Hyp+RERA) Count 91 92 N/A N/A N/A N/A 26 65 Index 11.8 12 N/A N/A N/A N/A 40.0 9.2 Respiratory Related Arousal Count 20 92 N/A N/A N/A N/A 5 15 Index 2.6 3 N/A N/A N/A N/A 8 2 Snoring Analysis Supine Right Left Prone REM NREM Total Snore duration 9.3 min Snores count 404 N/A N/A N/A 59 345 404 Snore mean duration 1.4 Sec Snores index 52 N/A N/A N/A 90.8 48.2 51.7 TST with snoring (%) 2.0% SpO2 Analysis Total REM NREM Awake <50% 0.0 min. 0.0 min. 0.0 min. 0.0 min. 51 - 60% 0.0 min. 0.0 min. 0.0 min. 0.0 min. 61 - 70% 0.0 min. 0.0 min. 0.0 min. 0.0 min. 71 - 80% 0.8 min. 0.6 min. 0.2 min. 0.0 min. 81 - 90% 188.1 min. 16.0 min. 137.2 min. 34.9 min. 91 - 100% 316.8 min. 20.2 min. 288.4 min. 8.2 min. Average 91 90 91 89 Minimum SpO2 77 77 79 81 Desaturation Event Index 10.5 32.3 9.4 2.6 # Desat. Events below 89% 60 18 41 1 Time(%) with Saturation below 89% 11.7 2.3 6.2 3.2 Time(min.) with Saturation below 89% 59.2 11.4 31.5 16.2 Heart Rate Analysis End Tidal CO2 Analysis Min (bpm) Max (bpm) Average (bpm) TSP (mins) % of TSP Awake 66 113 98 Above 55 mmHg 0.0 0.0 NREM 53 127 80 50-55 mmHg 5.4 1.2 REM 48 93 70 45-50 mmHg 146.4 31.2 Overall 48 127 79 40-45 mmHg 142.0 30.3 35-40 mmHg 158.2 33.8 30-35 mmHg 14.7 3.1 Average ETCO2 0.4 Supplemental O2 Values Minimum O2 level: None Value Start Time End Time County Judge Comments Mr. Concepcion slept in the supine position. Increased heart rate noted at times. Leg movements noted. No bruxism noted. Snoring was noted and scored as a 4 on a scale of 1 through 5. (0=no snoring, 5=snoring loud enough to be heard through a closed door or down the maharaj way) Mr. Concepcion awoke to use the restroom 0 times during the night. Mr. Concepcion stated I slept as well as I do when I am in my own bed. The final report will be interpreted and signed by a sleep physician. The completed physician report will then be placed in the patient medical record. Therapy (cm H2O) 0 TIB (min.) 514.5 TST (min.) 468.5 Sleep Onset (min.) 35.5 REM Onset From Sleep (min.) 151.0 Sleep Efficiency % 91 Wakefulness (%) 9 Wakefulness (min.) 46.0 NREM 1 (%) 2 NREM 1 (min.) 9.0 NREM 2 (%) 42 NREM 2 (min.) 196.5 NREM 3 (%) 48 NREM 3 (min.) 224.0 REM (%) 8 REM (min.) 39.0 # Arousals 86 Arousal Index 11 # Snore 404 Snore Index 51.7 AHI 11.7 AHI Supine 12 AHI Non-Supine N/A NREM AHI 9.1 REM AHI 40.0 RDI 11.8 # Obstructive Apnea 4 # Central Apnea 1 # Mixed Apnea 0 # Hypopneas 86 RERAs 1 Total Respiratory Events 93 Time Below SpO2 89% (min.) 43.0 Mean NREM SpO2 (%) 91 Mean REM SpO2 (%) 90 Mean Sleep SpO2 (%) 91 Min NREM SpO2 (%) 79 Min REM SpO2 (%) 77 Position Supine (min.) 514.5 Position Non-supine (min.) 0.0 LM Index Sleep 68.5 LM Index NREM 67.6 LM Index REM 78.5 Mean Heart Rate (bpm) 79 Min Heart Rate (bpm) 48
--- NOTE | 2017-02-24 08:10 | POLYSOMNOGRAPH REPORT ---
REFERRING PERSON: Dr. Shannan Worrell. IMPLEMENTATION SPECIALIST PAYROLL: Alan Cali. Mr. Winchester is a 51-year-old male with severe snoring, obesity, asthma, depression and excessive daytime sleepiness. 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 He is here today to rule out obstructive sleep apnea. His Adel sleepiness scale score on the evening of this study is 15. BMI is 30.86. Following the technical and digital specifications of the [place] [employer] (AASM) a standard diagnostic polysomnogram was performed monitoring EEG, EOG, EMG (chin and leg deviations), oxygen saturation, body position, digital video, respiratory effort and airflow. The sleep Stage and event scoring was based on the AASM Manual for the Scoring of Sleep and Associated Events 2007 edition. Apneas are defined as a drop in the peak thermal sensor excursion by >90% of baseline for at least 10 seconds. Hypopneas were scored using the 4% oxygen desaturation rule (4A-Medicare) and a decrease in the nasal pressure excursions by >30% of baseline for at least 10 seconds. Respiratory effort-related arousal (RERA's) is defined as a sequence of breaths lasting at least 10 seconds characterized by increasing respiratory effort or flattening of the nasal pressure waveform leading to an arousal from sleep when the sequence of breaths does not meet criteria for an apnea or hypopnea. Apnea Hypopnea index (AHI) is defined as the number of apneas and hypopneas occurring in an hour of sleep. Respiratory disturbance index (RDI) is defined as the number of apneas, hypopneas, and RERA's occurring in an hour of sleep. Mr. Hughes total sleep period time was 479 minutes. Total sleep time was 468.5 minutes. Sleep efficiency was 91%. Latency to sleep onset was 35.5 minutes. Total non-REM sleep time was 429.5 minutes. He spent 2% of that time in N1 sleep, 42% in N2 sleep and 48% in N3 sleep. REM latency was 151 minutes. Total REM sleep time was 39 minutes or 8% of total sleep time. There were 86 cortical arousals from sleep. 20 of these arousals were due to respiratory events, 30 due to periodic limb movements of sleep and 2 were due to snoring. Remaining 34 were spontaneous. There were 535 periodic limb movements noted on this test. Limb movement index was 68.5. Limb movement with arousal index was 3.8. There was 1 central, 4 obstructive and no mixed apneas on this test. There were 86 hypopneas and 1 RERA. Apnea-hypopnea index was elevated at 11.7. The supine AHI was 12, REM AHI was 40. There were 404 snoring events recorded. Total sleep time with snoring was 2%. Mean saturation was 91%. There were desaturations to 77%. Saturations were less than 89 for 59.2 minutes of recorded time. This is significant nocturnal hypoxemia. Heart rates during sleep ranged from 48 beats per minute to 127 beats per minute. End tidal CO2 was recorded on this test. End tidal CO2s were between 50 and 55 mmHg for 1.2% of total sleep period time, between 45 and 50 mmHg for 31.2%, between 40 and 45 mmHg for 30.3%, between 30 and 35 mmHg for 33.8% and between 30 and 35 mmHg for 3.1% of total sleep period time. IMPRESSION AND PLAN: 51-year-old male with evidence of mild sleep apnea and significant nocturnal hypoxemia on this sleep study. 1. This patient would likely benefit from positive airway pressure therapy. He should return to the sleep lab for a full night titration and then based on those results be started on equipment at home. A download from his machine can be reviewed in 1 month both to check compliance as well as AHI and further pressure adjustments can occur at that time. 2. Should this patient be unwilling or unable to tolerate CPAP therapy, he should be referred to ear, nose and throat or oral surgery/dental medicine (if appropriate) to discuss alternative treatments for sleep disorder breathing.
== END | disposition home or self-care (01) ==
LOC: C.NEUR 21:00
PROVIDERS: ATTEND Family Medicine
DX: G47.61 Periodic limb movement disorder (principal); G25.81 Restless legs syndrome; R06.83 Snoring; R06.81 Apnea, not elsewhere classified; E66.9 Obesity, unspecified

== ENCOUNTER → 2017-05-02 | Outpatient (CLI) | payer OTHER ==
--- NOTE | 2017-05-02 09:28 | DIAGNOSTIC IMAGING REPORT ---
(CHEST) THORAX WITHOUT CLINICAL HISTORY: Abnormal chest x-ray. Follow-up examination. COMPARISON STUDY: Chest CT dated 01/29/2017 CT DOSE: 475.97 mGycm TECHNIQUE: CT of the thorax was performed from the thoracic inlet to the lung bases. Images are reviewed in the axial, sagittal, and coronal planes. IV contrast was not administered for this examination. A dose lowering technique was utilized adhering to the principles of ALARA. FINDINGS: Thyroid: Imaged portions of the thyroid gland are normal in appearance. Thoracic aorta: The thoracic aorta is normal in course and caliber, noting standard 3 vessel arch anatomy. Heart: The heart is normal in size and configuration, without pericardial effusion. Lungs and pleural spaces: No pleural effusions are visualized. There is a stable 2.5 mm solid left lower lobe pulmonary nodule. There is a stable 4 mm left lower lobe pulmonary nodule. There is a stable solid 5 mm pulmonary nodule within the lingula. There is underlying pulmonary emphysema with subpleural upper lung zone blebs. There is subpleural reticulation within upper lung zone predominance. There has been significant improvement in the groundglass pulmonary opacities. Mediastinum: There is no evidence of pathologic adenopathy by size criteria Jennie: Enlarged calcified right hilar lymph nodes remain stable. These are likely postinflammatory Axilla: There is no evidence of pathologic axillary lymphadenopathy Upper abdomen: Partially visualized upper abdominal viscera is within normal limits. Skeletal structures: There is a severe scoliosis. IMPRESSION: 1. Stable subcentimeter solid left lung pulmonary nodules, the largest of which measures 5 mm 2. Marked improvement in the previously described groundglass pulmonary opacities 3. Subpleural reticulation within upper lung zone predominance Electronically signed by: Isma London M.D. 05/02/2017 9:27 AM Dictated Date/Time: 05/02/2017 9:20 AM
== END | disposition home or self-care (01) ==
LOC: C.CTS 08:25
PROVIDERS: ATTEND Physician Assistant Medical
DX: R93.8 Abnormal findings on diagnostic imaging of other specified body structures (principal)

== ENCOUNTER 2017-05-18 05:48 | Emergency (ER) | payer OTHER ==
[~2017-05-18] VITALS: Ht 175.3 cm; Wt 94.2 kg
[2017-05-18 05:51] VITALS: TEMP 36.7; Ht 175.3 cm; Wt 94.2 kg
[2017-05-18] MEDS ORDERED: SODIUM CHLORIDE 0.9% 1000ML 1,000 ML IV STA (06:00)
[2017-05-18] MEDS ORDERED: HYDROmorphone INJ 1 MG/ML SYR IV STA (06:00)
[2017-05-18] MEDS ORDERED: ONDANSETRON INJ 2 MG/ML 2 ML VIAL IV STA (06:00)
--- NOTE | 2017-05-18 06:04 | EMERGENCY ROOM VISIT NOTE ---
History First contact with patient: 05:55 Chief Complaint: KIDNEY STONE Stated Complaint: KIDNEY STONE History of Present Illness The patient is a 51 year old male who presents to the Emergency Room for evaluation of left flank pain. Acute onset awoke him from sleep this morning. Associated with nausea. Nothing makes better nor worse. No medications prior to arrival. Has not urinated since awakening. No fevers, chills, cp, sob, abdominal pain, diarrhea, nor other symptoms. [place] fine prior to this. No recent dehydration nor urinary burning. Similar to previous kidney stone requiring stenting 4 years ago. No issues with stones since. Several months ago admitted for acute COPD exacerbation though notes breathing good today and has since quite smoking. Review of Systems See HPI for pertinent positives & negatives. A total of 10 systems reviewed and were otherwise negative. Past Medical/Surgical History Medical Problems: (1) Asthma (2) Asthma, mild persistent (3) Calculus of kidney and ureter (4) Chronic back pain (5) Depression (6) Depression (7) Dyslipidemia (8) Dyslipidemia (9) Gastroesophageal reflux disease (10) GERD (gastroesophageal reflux disease) (11) Hypoxia (12) Kidney stone (13) Migraine (14) Migraine (15) Pancreatitis (16) Scoliosis (17) Sleep disorder Surgical Problems: (1) H/O colonoscopy (2) History of back surgery (3) S/p fragment kidney stone by shock wave (4) S/P nasal surgery (5) S/P tonsillectomy (6) S/p ureteral stent placement (7) spinal surgery due to scoliosis Family History Diabetes mellitus FATHER FH: cancer BROTHER (lung CA) FH: heart disease FATHER (fatal CO/stroke age 79) BROTHER (CO in early 50s) FH: kidney disease FHx: gallstones Hypertension Stroke FATHER Social History Smoking Status: Never Smoker Alcohol Use: none Drug Use: none Marital Status: Housing Status: lives with significant other Occupation Status: employed Current/Historical Medications Scheduled Albuterol Sulfate (Proventil Hfa), 2 PUFFS INH QID Amitriptyline Hcl (Amitriptyline Hcl), 50 MG PO HS Aspirin (Aspirin), 325 MG PO DAILY Fish Oil ([place]-3), 1 CAP PO DAILY Fluticasone Propionate (Flovent Hfa), 2 PUFFS INH DAILY Levofloxacin (Levofloxacin), 500 MG PO DAILY@11 Paroxetine Hcl (Paxil), 40 MG PO DAILY Pravastatin Sod (Pravastatin Sodium), 40 MG PO HS Prednisone Tab (Prednisone), 10 MG PO UD Ranitidine Hcl (Ranitidine Hcl), 300 MG PO BID Sumatriptan Succinate (Imitrex), 50 MG PO PRN Scheduled PRN Ipratropium [place] (Ipratropium [place]), 0.5 MG INH Q6R PRN for SOB/Wheezing Levalbuterol (Levalbuterol), 1.25 MG INH Q6R PRN for SOB/Wheezing Physical Exam Vital Signs Date Time Temp Pulse Resp B/P (MAP) Pulse Ox O2 Delivery O2 Flow Rate FiO2 05/18/17 05:51 36.7 83 16 138/91 93 Room Air Physical Exam GENERAL: Patient is very uncomfortable appearing and in moderate distress. HEENT: No acute trauma, normocephalic atraumatic, mucous membranes moist, no nasal congestion, no scleral icterus. NECK: No stridor, no adenopathy, no meningismus, trachea is midline. LUNGS: No dyspnea. Clear to auscultation and equal bilaterally. No wheeze, no rhonchi. HEART: Regular rate and rhythm. No murmurs, rubs, gallops appreciated. ABDOMEN: Soft, nontender, bowel sounds positive, no masses appreciated, no peritonitis. BACK: No midline tenderness, no CVA tenderness EXTREMITIES: Normal motion all extremities, no cyanosis, no edema. NEUROLOGIC: Alert and oriented, no acute motor or sensory deficits, no focal weakness, cranial nerves grossly intact. SKIN: No rash, no jaundice, no diaphoresis. Medical Decision & Procedures Laboratory Results 05/18/17 06:00 Red Blood Count 5.04, Mean Corpuscular Volume 89.3, Mean Corpuscular Hemoglobin 30.8, Mean Corpuscular Hemoglobin Concent 34.4, Mean Platelet Volume 9.7, Neutrophils (%) (Auto) 40.2, Lymphocytes (%) (Auto) 44.8, Monocytes (%) (Auto) 11.8, Eosinophils (%) (Auto) 2.5, Basophils (%) (Auto) 0.3, Neutrophils # (Auto ) 4.13, Lymphocytes # (Auto) 4.60, Monocytes # (Auto) 1.21, Eosinophils # (Auto ) 0.26, Basophils # (Auto) 0.03 05/18/17 06:00 Test 05/18/17 06:00 White Blood Count 10.27 K/uL (4.8-10.8) Red Blood Count 5.04 M/uL (4.7-6.1) Hemoglobin 15.5 g/dL (14.0-18.0) Hematocrit 45.0 % (42-52) Mean Corpuscular Volume 89.3 fL (80-100) Mean Corpuscular Hemoglobin 30.8 pg (25-34) Mean Corpuscular Hemoglobin Concent 34.4 g/dl (32-36) Platelet Count 232 K/uL (130-400) Mean Platelet Volume 9.7 fL (7.4-10.4) Neutrophils (%) (Auto) 40.2 % Lymphocytes (%) (Auto) 44.8 % Monocytes (%) (Auto) 11.8 % Eosinophils (%) (Auto) 2.5 % Basophils (%) (Auto) 0.3 % Neutrophils # (Auto) 4.13 K/uL (1.4-6.5) Lymphocytes # (Auto) 4.60 K/uL (1.2-3.4) Monocytes # (Auto) 1.21 K/uL (0.11-0.59) Eosinophils # (Auto) 0.26 K/uL (0-0.5) Basophils # (Auto) 0.03 K/uL (0-0.2) RDW Standard Deviation 41.9 fL (36.4-46.3) RDW Coefficient of Variation 12.9 % (11.5-14.5) Immature Granulocyte % (Auto) 0.4 % Immature Granulocyte # (Auto) 0.04 K/uL (0.00-0.02) Anion Gap 5.0 mmol/L (3-11) Est Creatinine Clear Calc Drug Dose 89.0 ml/min Estimated GFR () 89.0 Estimated GFR (Non- 76.8 BUN/Creatinine Ratio 9.5 (10-20) Calcium Level 8.6 mg/dl (8.5-10.1) Total Bilirubin 0.4 mg/dl (0.2-1) Direct Bilirubin 0.2 mg/dl (0-0.2) Aspartate Amino Transf (AST/SGOT) 27 U/L (15-37) Alanine Aminotransferase (ALT/SGPT) 42 U/L (12-78) Alkaline Phosphatase 138 U/L (45-117) Total Protein 7.8 gm/dl (6.4-8.2) Albumin 3.7 gm/dl (3.4-5.0) Lipase 117 U/L (73-393) Medications Administered Medications (Trade) Dose Ordered Sig/Nemo Route Start Time Stop Time Status Last Admin Dose Admin Hydromorphone HCl (Dilaudid Inj) 1 mg NOW STAT IV 05/18/17 06:00 05/18/17 06:02 DC 05/18/17 06:07 1 MG Ondansetron HCl (Zofran Inj) 4 mg NOW STAT IV 05/18/17 06:00 05/18/17 06:02 DC 05/18/17 06:07 4 MG Sodium Chloride 1,000 ml @ 999 mls/hr Q1H1M STAT IV 05/18/17 06:00 05/18/17 07:00 05/18/17 06:07 999 MLS/HR ED Course 0555: Evaluated by me 0615: Re-evaluation. Resolution of bernadette and feeling much better 0635: Re-evaluation. Feeling well. No further symptoms. Medical Decision Differential: Renal Colic, Pyelonephritis, Hydronephrosis, Appendicitis, Diverticulitis, Retroperitoneal Bleed/Infection, Aortic Pathology, MSK, Neurologic Pathology, amongst other pathologies entertained. 51 yr old male with acute left flank pain, quite severe. History of complicated stones requiring stents in past. No symptoms UTI. Given single dose narcotics and feeling much better. CT with small stone that has almost entered bladder. Still feeling well. Labs unremarkable. No UA but requesting discharge as picking up. No infectious symptoms and with passed stone seems reasonable to hold off on UA. Discussed symptoms requiring return. Given likely soreness throughout the day sent home with zofran/oxy ir. Reviewed restrictions on oxy ir. Medication Reconcilliation Current Medication List: was personally reviewed by me Blood Pressure Screening Patient's blood pressure: Elevated blood pressure Blood pressure disposition: Elevated BP felt to be situational Impression Primary Impression: Left ureteral calculus Departure Information Dispostion Home / Self-Care Condition GOOD Referrals Brina Sweeney M.D. (MEDICAL) (PCP) Patient Instructions Kidney Stones Expectant Therapy, My [facility]
[2017-05-18 06:09] LABS: BASO % 0.3 %; BASO ABS # 0.03 K/uL (0-0.2); COMPLETE YES; EOS % 2.5 %; IG% 0.4 %; LYMPH % 44.8 %; MEAN CELL VOLUME 89.3 fL (80-100); MEAN CORPUSCULAR HEMOGLOBIN 30.8 pg (25-34); MEAN CORPUSCULAR HGB CONC 34.4 g/dl (32-36); MEAN PLATELET VOLUME 9.7 fL (7.4-10.4); MONO % 11.8 %; NEUT % 40.2 %; PLATELET COUNT 232 K/uL (130-400); RED BLOOD COUNT 5.04 M/uL (4.7-6.1); WHITE BLOOD COUNT 10.27 K/uL (4.8-10.8)
[2017-05-18 06:27] LABS: BUN/CREATININE RATIO 9.5 (10-20); CALCIUM 8.6 mg/dl (8.5-10.1); CREATININE 1.1 mg/dl (0.60-1.40); POTASSIUM 3.8 mmol/L (3.5-5.1)
[2017-05-18] MEDS ORDERED: ONDANSETRON HOME PACK 4MG OD TAB PO ONE (07:00)
[2017-05-18] MEDS ORDERED: OXYCODONE IR HOME PACK PO ONE (07:00)
--- NOTE | 2017-05-18 07:03 | DIAGNOSTIC IMAGING REPORT ---
ABD/PELVIS WITHOUT FOR STONE HISTORY: 51 years-old Male acute left flank pain. stone 4+ yrs ago COMPARISON: CT abdomen and pelvis 10/15/2016 TECHNIQUE: Multiple axial CT images of the abdomen and pelvis were obtained without the use of IV contrast. A dose lowering technique was used consistent with the principals of BC. FINDINGS: Patchy subsegmental groundglass opacities are present within the lung bases, right greater than left suggesting admixture of atelectasis with scarring which appears unchanged. There is no pneumoperitoneum. Imaged inferior cardiac chambers are again enlarged. There is a trace pericardial effusion. There is diffuse fatty infiltration of the liver. Scattered calcifications are noted throughout the splenic parenchyma, nonspecific. Gallbladder, pancreas and adrenal glands are within normal limits. 4 x 3 x 3 mm calculus of the distal left ureter within the region of the left ureterovesicular junction is noted causing associated mild left-sided obstructive uropathy. Mild inflammatory stranding surrounding the left kidney and left ureter. The right kidney is within normal limits. No additional calculi are seen. Urinary bladder is unremarkable. The prostate is mildly prominent in size. There is mild atherosclerotic plaquing of the abdominal and iliac vasculature. No bulky retroperitoneal adenopathy identified. There is no bowel obstruction. Scattered noninflamed colonic diverticula are present. No evidence of acute appendicitis. Soft tissues are within normal limits with mild/moderate atrophy of the paraspinal musculature. The bones are moderately demineralized. Marked sigmoidal scoliosis of the thoracolumbar spine is redemonstrated with multilevel facet bony fusion. There are remote pars defects present bilaterally at the lumbosacral junction. Postsurgical changes of the spine are also noted. IMPRESSION: 1. 4 x 3 x 3 mm calculus of the left ureterovesicular junction causes mild obstructive uropathy. 2. Colonic diverticulosis without diverticulitis. 3. Fatty infiltration of the liver. The above report was generated using voice recognition software. It may contain grammatical, syntax or spelling errors. Electronically signed by: Bonifacio Fishman M.D. 05/18/2017 7:02 AM Dictated Date/Time: 05/18/2017 6:56 AM
[2017-05-18 07:37] VITALS: BP 97/69; PULSE 70; O2SAT 92
== END 2017-05-18 07:39 | disposition home or self-care (01) ==
LOC: C.EDB 05:49 → C.EDA 07:39
DX: N20.1 Calculus of ureter (principal); J45.909 Unspecified asthma, uncomplicated; Z87.442 Personal history of urinary calculi; F32.9 Major depressive disorder, single episode, unspecified; E78.5 Hyperlipidemia, unspecified; K21.9 Gastro-esophageal reflux disease without esophagitis; G43.909 Migraine, unspecified, not intractable, without status migrainosus; M41.9 Scoliosis, unspecified; K85.90 Acute pancreatitis without necrosis or infection, unspecified; G47.9 Sleep disorder, unspecified; Z83.3 Family history of diabetes mellitus; Z80.9 Family history of malignant neoplasm, unspecified; Z82.49 Family history of ischemic heart disease and other diseases of the circulatory system; Z84.1 Family history of disorders of kidney and ureter; Z79.82 Long term (current) use of aspirin; Z79.52 Long term (current) use of systemic steroids; Z79.899 Other long term (current) drug therapy

== ENCOUNTER → 2017-06-30 | Outpatient (CLI) | payer OTHER ==
[~2017-06-30] MED LIST changes: -ATRINS INH; -LVQ500 PO; -PRED10TA PO; -XPNINS1255 INH
[2017-06-30 12:46] LABS: INR 0.9 (0.9-1.1); PARTIAL THROMBOPLASTIN RATIO 1.2; PROTHROMBIN TIME (PATIENT) 10.1 SECONDS (9.0-12.0)
[2017-06-30 12:50] LABS: BASO % 0.2 %; BASO ABS # 0.02 K/uL (0-0.2); COMPLETE YES; EOS % 2.8 %; HEMATOCRIT 45.5 % (42-52); IG% 0.7 %; LYMPH % 42.3 %; LYMPH ABS # 3.76 K/uL (1.2-3.4); MEAN CELL VOLUME 87.5 fL (80-100); MEAN CORPUSCULAR HEMOGLOBIN 30.6 pg (25-34); MEAN CORPUSCULAR HGB CONC 34.9 g/dl (32-36); MEAN PLATELET VOLUME 10.3 fL (7.4-10.4); MONO % 10.5 %; NEUT % 43.5 %; PLATELET COUNT 241 K/uL (130-400); WHITE BLOOD COUNT 8.89 K/uL (4.8-10.8)
[2017-06-30 13:16] LABS: BLOOD UREA NITROGEN 10 mg/dl (7-18); BUN/CREATININE RATIO 12.6 (10-20); CALCIUM 8.8 mg/dl (8.5-10.1); CARBON DIOXIDE 26 mmol/L (21-32); CHLORIDE 108 mmol/L (98-107); GLUCOSE 87 mg/dl (70-99); POTASSIUM 4.1 mmol/L (3.5-5.1); SODIUM 141 mmol/L (136-145)
== END | disposition home or self-care (01) ==
LOC: C.LAB1850 09:49
PROVIDERS: ATTEND Physician Assistant
DX: R93.8 Abnormal findings on diagnostic imaging of other specified body structures (principal)

== ENCOUNTER → 2017-07-18 | Day surgery (SDC) | payer OTHER ==
[~2017-07-18] VITALS: Ht 177.8 cm; Wt 96.7 kg
[2017-07-18] VITALS (15 sets, daily range): BP systolic 91–143; BP diastolic 61–113; PULSE 76–89; TEMP 36.5–36.7; O2SAT 87–100; Ht 177.8 cm; Wt 96.7 kg
[~2017-07-18] MED LIST changes: +FENTANYL CITRATE INJ 50 MCG/1 ML 2 ML VIAL IV ONE; +LIDOCAINE 4% INH SOLN 4 ML BTL ONE; +LIDOCAINE HCL 2% LOCAL 50ML VIAL INFIL ONE; +MIDAZOLAM HCL 5 MG/ML 1 ML VIAL IV ONE; +NURSING VERBAL MED ORDER ONE
--- NOTE | 2017-07-18 10:16 | History and Physical ---
History & Physical Date Jul 18, 2017. Chief Complaint Diffuse changes in the lingula as well as right middle lobe with progressive dyspnea on exertion History of Present Illness The patient is a 51 year old male with complaints of abnormal CAT scan of lingula right middle lobe and progressive dyspnea on exertion 51-year-old male presents the office for continuation of care post CT scan. Prior records reviewed. PMHx includes: History of asthma, obstructive sleep apnea, history of pancreatitis, history of hyperlipidemia, h/o pneumonia, GERD, and history of tobacco use 25-30 pack-year (7-10 cigarettes daily times 40 years ). Patient was diagnosed with asthma in apx 2006. At that time he was symptomatic of wheeze and dyspnea. Initially, albuterol was palliative. He felt relatively stable over the following 10-years. September 2016, he developed symptoms of cough and hypoxia. CT Chest 09/2016: bilateral ground-glass changes. He was treated for acute pneumonia/pneumonitis with improvement. Unfortunately, 2016 he again developed symptoms of cough, dyspnea, hypoxia and fever despite an outpatient course of azithromycin prednisone. He was admitted and treated with an escalated dose of steroid-IV with antibiotic. CT chest was repeated 02/2017 again describing diffuse bilateral ground-glass shift and peripheral reticular changes. He was evaluated by a pulmonary inpatient. Echocardiogram: unremarkable. It was felt that his symptoms were secondary to hypersensitivity pneumonitis. Reported that his home had a significant problem with moldy/ mildew home. Several as family members also reported respiratory symptoms. Hypersensitivity panel + Cladosporium IgG. He was prescribed levofloxacin and steroid taper on discharge then Symbicort daily. Patient followed with Pulmonary post discharge and follow-up CT arranged (as below). PSG completed was diagnostic of mild sleep apnea (AHI 12/with significant nocturnal hypoxemia. His end-tidal CO2 is were between 50 and 55. Since his discharge at the end of January patient reports his breathing has been okay. He reports he will become short of breath with activities such as ambulating in a living up in his 18 steps to his apartment. He denies associated wheeze or cough. He states that he has from his prior residence in longer has exposure to mold/mildew. He denies any fevers or chills. He does use his albuterol for symptoms of shortness of breaths however reports this is no longer palliative. he does however have ipratropium bromide in his nebulizer and finds that this is helpful. He is using his b.i.d.. Additionally, he is compliant with Symbicort [address] chest 05/02/2017 was reviewed with reports as well as imaging from in September 2016, January 2017, and that from 04/2017. His described 2 stable pulmonary nodules largest measuring 5 millimeters in size on the left there was no pathologic adenopathy. There was an enlarged calcified right hilar lymph node There had been improvement interval in the previously described ground- glass pulmonary opacities however continue to describe subpleural reticulation in the upper lung zones predominantly. Active Problems 1. Abnormal chest CT 2. Asthma 3. Hypercholesterolemia 4. Hypersensitivity pneumonitis 5. Nephrolithiasis 6. Obstructive sleep apnea of adult 7. Ureteral stone 8. Vomiting 9. History of asthma 10. History of migraine headaches 11. History of scoliosis Surgical History 1. History of Back Surgery 2. History of Nose Surgery 3. History of Renal Lithotripsy Family History 1. Family history of Diabetes Mellitus 2. Family history of Heart Disease 3. Family history of Hypertension 4. Family history of Lung Cancer Social History Denied: History of Alcohol Use Current every day smoker Marital History - Currently Denied: History of Tobacco Use Working Senior [employer] Current Meds 1. Symbicort 160-4.5 MCG/ACT Inhalation Aerosol; INHALE 2 PUFFS TWICE DAILY. RINSE 2. Amitriptyline HCl - 50 MG Oral Tablet; TAKE 1 TABLET AT BEDTIME; 3. Aspirin 325 MG Oral Tablet; TAKE 1 TABLET DAILY 4. Fish Oil CAPS; 5. Imitrex 50 MG Oral Tablet; TAKE 1 TABLET FOR MIGRAINE RELIEF. MAY REPEAT EVERY 6. Ipratropium-Albuterol 0.5-2.5 (3) MG/3ML Inhalation Solution; Q6R PRN for 7. Levalbuterol HCl - 1.25 MG/3ML Inhalation Nebulization Solution; USE 1 VIAL IN 8. Paxil 40 MG Oral Tablet; TAKE 1 TABLET DAILY; 9. Pravastatin Sodium 40 MG Oral Tablet; TAKE 1 TABLET AT BEDTIME; 10. Proventil HFA 108 (90 Base) MCG/ACT Inhalation Aerosol Solution; INHALE 2 PUFFS 11. RaNITidine HCl - 300 MG Oral Tablet; TAKE 1 TABLET DAILY DIRECTED; Allergies 1. No Known Drug Allergies Past Medical/Surgical History Medical Problems: (1) Asthma (2) Asthma, mild persistent (3) Calculus of kidney and ureter (4) Chronic back pain (5) Depression (6) Depression (7) Dyslipidemia (8) Dyslipidemia (9) Gastroesophageal reflux disease (10) GERD (gastroesophageal reflux disease) (11) Hypoxia (12) Kidney stone (13) Migraine (14) Migraine (15) Pancreatitis (16) Scoliosis (17) Sleep disorder Surgical Problems: (1) H/O colonoscopy (2) History of back surgery (3) S/p fragment kidney stone by shock wave (4) S/P nasal surgery (5) S/P tonsillectomy (6) S/p ureteral stent placement (7) spinal surgery due to scoliosis Additional History Hepatic Disease: No Endocrine Disorder: No Kidney Disease: No Hypertension: No Heart Disease: No Bleeding Tendencies: No Infectious Diseases: No Other: GRACIE Asthma Scoliosis Allergies Coded Allergies: No Known Allergies (Unverified , 07/18/17) Home Medications Scheduled Albuterol Sulfate (Proventil Hfa), 2 PUFFS INH QID Amitriptyline Hcl (Amitriptyline Hcl), 50 MG PO HS Aspirin (Aspirin), 325 MG PO DAILY Fish Oil ([place]-3), 1 CAP PO DAILY Fluticasone Propionate (Flovent Hfa), 2 PUFFS INH DAILY Paroxetine Hcl (Paxil), 40 MG PO DAILY Pravastatin Sod (Pravastatin Sodium), 40 MG PO HS Ranitidine Hcl (Ranitidine Hcl), 300 MG PO BID Sumatriptan Succinate (Imitrex), 50 MG PO PRN Physical Examination Skin: warm/dry, no rash Eyes: normal inspection, EOMI, sclerae normal ENT: normal ENT inspection, pharynx normal Head: normocephalic, atraumatic Neck: supple, no adenopathy, trachea midline Respiratory/Chest: lungs clear, normal breath sounds, no respiratory distress Cardiovascular: regular rate, rhythm, no edema, no murmur Abdomen / GI: normal bowel sounds, non tender Back: normal inspection Extremities: normal inspection, normal range of motion Neurologic/Psych: no motor/sensory deficits, alert, normal reflexes, oriented x 3 Diagnosis Abnormal CAT scan with progressive dyspnea on exertion Plan of Treatment Bronchoscopy with conscious sedation and bronchial lavage
--- NOTE | 2017-07-18 10:33 | History & Physical Bridge Note ---
H&P Re-Evaluation Bridge Note: I have examined the patient, reviewed the History & Physical and in the interval since the performance of the History & Physical I have noted the following changes of clinical significance: No changes noted
--- NOTE | 2017-07-18 10:33 | Procedure Note ---
Pre-Mod Sedation Assessment General Date of Moderate Sedation: Jul 18, 2017. Vital Signs: Vital Signs Past 12 Hours Date Time Temp Pulse Resp B/P (MAP) Pulse Ox O2 Delivery O2 Flow Rate FiO2 07/18/17 10:17 36.7 87 18 138/90 93 Room Air 07/18/17 08:55 36.7 87 18 138/90 (106) 93 Room Air Review Cardiovascular: regular rate, rhythm, no edema, no gallop, no JVD, no murmur Abdomen: normal bowel sounds, non tender, soft, no organomegaly, no pulsatile mass, normal rectal exam Lungs: chest non-tender, lungs clear, normal breath sounds, no respiratory distress Airway Class: III Pre-Sedation Airway Assessment Oral Cavity: Dentures Short Thick Neck: No Hx of Sleep Apnea: Yes Smoking Status: Former Smoker Mallampati Classification: Class III ASA Classification: Class II Procedure Planning Contraindications-for Mod Sed: None Yes Notes The planned sedation has been discussed with the patient and consent obtained. I have identified the patient, determined the appropriateness of sedation and have assessed the patient immediately prior to the procedure. All medicine(s) and interventions are by my order.
--- NOTE | 2017-07-18 11:17 | Bronchoscopy Procedure Note ---
Bronchoscopy Procedure Note Procedure: Bronchoscopy, conscious sedation, bronchial lavage right middle lobe Consent: Obtained through the patient placed into the chart Pre-procedural diagnosis: Abnormal CAT scan with progressive dyspnea Post-procedural diagnosis: Abnormal CAT scan with progressive dyspnea Start time: 1050 End time: 1108 Total time: minutes Analgesia: 2% liquid lidocaine: Via nebulizer 4% gel lidocaine: Via right naris 2% liquid lidocaine: Via bronchoscopy Sedation: Versed IV: 3 mg Fentanyl IV: 75 g Procedure: The Olympus video bronchoscope was used for this procedure and passed down through the right naris Right naris/posterior naris/posterior oropharynx: Anatomically within normal limits Glottis: Anatomically within normal limits Vocal cords: Proper abduction and abduction, anatomically within normal limits Subglottis/trachea/Raad: 60% EDAC in the proximal trachea with 70% EDAC in the distal trachea Right bronchial tree: Right mainstem bronchus: 80% EDAC Right upper lobe: Anatomically within normal limits Bronchus intermedius: 80% EDAC Right middle lobe: Anatomically within normal limits Right lower lobe: Anatomically within normal limits Findings: 80% EDAC throughout most of the right bronchial tree Left bronchial tree: Left mainstem bronchus: 60% EDAC Left upper lobe: Lateral wall at the secondary raad and notable collapse on inspiration mild bronchial malacia for 1.5 serum Lingula: Anatomically within normal limits Left lower lobe: 80% EDAC to the takeoff with counterclockwise rotation of the posterior wall Findings: No significant findings noted Bronchial alveolar lavage: Right middle lobe EBL: None Complications: None Follow-up: In the [facility]
--- NOTE | 2017-07-18 11:20 | Discharge Instructions ---
Discharge Instructions Date of Service Jul 18, 2017. Admission Reason for Admission: Abnormal Ct Pulmonary Nodule And Asthma Discharge Discharge Diagnosis / Problem: abnormal CAT scan with progressive dyspnea Discharge Goals Goal(s): Diagnostic testing Activity Recommendations Activity Limitations: resume your previous activity . Current Hospital Diet Patient's current hospital diet: Discharge Diet Recommended Diet: Regular Diet Procedures Procedures Performed: Bronchoscopy with conscious sedation and bronchial lavage of the right middle lobe Pending Studies Studies pending at discharge: no Medical Emergencies . Who to Call and When: Medical Emergencies: If at any time you feel your situation is an emergency, please call 911 immediately. . Non-Emergent Contact Non-Emergency issues call your: Branch Manager Trainee . . "Provider Documentation" section prepared by Lemuel Barker. . VTE Core Measure Inpt VTE Proph given/why not?: Treatment not indicated
== END | disposition home or self-care (01) ==
LOC: C.ACU 08:19
PROVIDERS: ATTEND Internal Medicine Critical Care Medicine
DX: R91.8 Other nonspecific abnormal finding of lung field (principal); R06.00 Dyspnea, unspecified; J45.909 Unspecified asthma, uncomplicated; F32.9 Major depressive disorder, single episode, unspecified; K21.9 Gastro-esophageal reflux disease without esophagitis; Z98.890 Other specified postprocedural states; Z79.82 Long term (current) use of aspirin; Z90.89 Acquired absence of other organs; Z83.3 Family history of diabetes mellitus; Z82.49 Family history of ischemic heart disease and other diseases of the circulatory system; Z80.1 Family history of malignant neoplasm of trachea, bronchus and lung

== ENCOUNTER 2017-10-07 10:32 | Inpatient (IN) | payer OTHER ==
[~2017-10-07] VITALS: Ht 175.3 cm; Wt 94.1 kg
[2017-10-07] VITALS (9 sets, daily range): BP systolic 122–145; BP diastolic 78–83; PULSE 86–93; TEMP 36.3–36.7; O2SAT 91–100; Ht 175.3 cm; Wt 94.1 kg
[~2017-10-07 10:32] MED LIST changes: -FENTANYL CITRATE INJ 50 MCG/1 ML 2 ML VIAL IV ONE; -LIDOCAINE 4% INH SOLN 4 ML BTL ONE; -LIDOCAINE HCL 2% LOCAL 50ML VIAL INFIL ONE; -MIDAZOLAM HCL 5 MG/ML 1 ML VIAL IV ONE; -NURSING VERBAL MED ORDER ONE
--- NOTE | 2017-10-07 10:55 | EMERGENCY ROOM VISIT NOTE ---
History Report prepared by Romero: Jerman Sykes Under the Supervision of: Dr. Arvind Sam M.D. First contact with patient: 10:48 Chief Complaint: SHORTNESS OF BREATH Stated Complaint: SOB,SICK ,FEVER History of Present Illness The patient is a 52 year old male who presents to the Emergency Room with complaints of constant shortness of breath that began last night. The patient states that he has a history lung issues including pneumonitis. His last exacerbation of shortness of breath was in January of last years. Sitting up improves the patients breathing. The patient also notes that he is running a low grade fever. 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 A total of 10 systems reviewed and were otherwise negative. Past Medical & Surgical Medical Problems: (1) Asthma (2) Asthma exacerbation (3) Asthma, mild persistent (4) Calculus of kidney and ureter (5) Chronic back pain (6) Depression (7) Depression (8) Dyslipidemia (9) Dyslipidemia (10) Gastroesophageal reflux disease (11) GERD (gastroesophageal reflux disease) (12) Hypoxia (13) Kidney stone (14) Migraine (15) Migraine (16) Pancreatitis (17) Scoliosis (18) Sleep disorder Surgical Problems: (1) H/O colonoscopy (2) History of back surgery (3) S/p fragment kidney stone by shock wave (4) S/P nasal surgery (5) S/P tonsillectomy (6) S/p ureteral stent placement (7) spinal surgery due to scoliosis Family History Diabetes mellitus FATHER FH: cancer BROTHER (lung [place]) FH: heart disease FATHER (fatal [place]/stroke age 79) BROTHER ([place] in early 50s) FH: kidney disease FHx: gallstones Hypertension Stroke FATHER Social History Smoking Status: Former Smoker Alcohol Use: none Drug Use: none Marital Status: Housing Status: lives with significant other Occupation Status: employed Current/Historical Medications Scheduled Albuterol Sulfate (Proventil Hfa), 2 PUFFS INH QID Amitriptyline Hcl (Amitriptyline Hcl), 50 MG PO HS Aspirin (Aspirin Ec), 81 MG PO DAILY Fish Oil ([place]-3), 2 CAP PO DAILY Fluticasone Propionate (Flovent Hfa), 2 PUFFS INH DAILY Paroxetine Hcl (Paxil), 40 MG PO DAILY Ranitidine Hcl (Ranitidine Hcl), 2 TAB PO DAILY Sumatriptan Succinate (Imitrex), 50 MG PO PRN Scheduled PRN Ipratropium-Albuterol (Duoneb), 1 TREATMENT INH Q4H PRN for ASTHMA Allergies Coded Allergies: No Known Allergies (Unverified , 10/07/17) Physical Exam Vital Signs Date Time Temp Pulse Resp B/P (MAP) Pulse Ox O2 Delivery O2 Flow Rate FiO2 10/07/17 12:32 96 115/77 96 BiPAP 24 10/07/17 11:45 97 109/72 98 BiPAP 24 10/07/17 11:20 93 96 30 10/07/17 11:19 93 16 92 Room Air 10/07/17 11:17 99 BiPAP 10/07/17 10:59 91 Room Air 10/07/17 10:52 102 10/07/17 10:38 36.9 103 24 161/92 92 Room Air Physical Exam GENERAL: Patient is a healthy-appearing well-nourished male HEAD: Normocephalic atraumatic EYES: Ocular movements intact pupils equal and react to light OROPHARYNX mucous membranes are moist no exudates present no erythema or edema present NECK: Supple no nuchal rigidity CHEST: Patient appears acutely short of breath. LUNGS: Clear and equal to auscultation CARDIAC: Normal S1 and S2 ABDOMEN: Soft nontender no guarding BACK: No CVA tenderness EXTREMITIES: No pain upon palpation normal muscle strength in all groups no clubbing cyanosis or edema NEURO: Patient is following commands and answering questions appropriately. Alert and oriented x3 Cranial Nerves 2-12 grossly intact Medical Decision & Procedures ER Provider Diagnostic Interpretation: Radiology results as stated below per my review and radiologist interpretation: CT ANGIOGRAM OF THE CHEST CLINICAL HISTORY: Shortness of breath. Possible pulmonary embolus. COMPARISON STUDY: 05/02/2017 TECHNIQUE: Following the IV administration of 92 mL of Optiray-320, CT angiogram of the thorax was performed from the thoracic inlet to the lung bases utilizing the pulmonary embolus protocol. Images are reviewed in the axial, sagittal, and coronal planes. IV contrast was administered without complication. MIP imaging was performed. A dose lowering technique was utilized adhering to the principles of ALARA. CT DOSE: 421.23 mGy.cm FINDINGS: There is no pathologic mediastinal lymphadenopathy. Enlarged calcified right hilar lymph nodes remain stable and are likely postinflammatory. There is no pathologic axillary lymphadenopathy. There was no evidence of thoracic aortic dilatation. Pulmonary nodule opacification is somewhat less than optimal. There are no definite pulmonary artery filling defects to indicate acute pulmonary embolism. No pleural effusions are visualized. There are progressive bilateral groundglass pulmonary airspace opacities, likely infectious/inflammatory. There is mild subpleural reticulation. There is mild hepatic steatosis. There is a marked scoliosis. IMPRESSION: 1. Less than optimal pulmonary artery opacification, but no evidence of acute pulmonary embolism 2. Bilateral subpleural reticulation 3. Progressive bilateral groundglass pulmonary opacities with upper lung zone predominance. These are likely infectious/inflammatory. Electronically signed by: Isma London M.D. 10/07/2017 12:42 PM Dictated Date/Time: 10/07/2017 12:37 PM SINGLE VIEW CHEST CLINICAL HISTORY: Dyspnea. FINDINGS: An AP, portable, upright chest radiograph is compared to study dated 01/29/2017 and correlated with chest CT dated 05/02/2017. The examination is degraded by portable technique, scoliosis, and patient rotation. The heart is top normal for projection. The pulmonary vasculature is noncongested. Chronic interstitial thickening is noted. Bibasilar atelectasis is observed. There is no airspace consolidation typical for pneumonia or large pleural effusion. There is no pneumothorax. The skeletal structures are osteopenic. There is moderate to advanced thoracolumbar scoliosis with significant distortion of the thoracic cage. IMPRESSION: No acute cardiopulmonary abnormality is identified. Electronically signed by: Nate Haynes M.D. 10/07/2017 12:01 PM Dictated Date/Time: 10/07/2017 11:59 AM Laboratory Results Test 10/07/17 11:10 10/07/17 11:28 Prothrombin Time 10.4 SECONDS (9.0-12.0) Prothromb Time International Ratio 1.0 (0.9-1.1) Activated Partial Thromboplast Time 29.7 SECONDS (21.0-31.0) Partial Thromboplastin Ratio 1.1 Total Bilirubin 0.5 mg/dl (0.2-1) Aspartate Amino Transf (AST/SGOT) 26 U/L (15-37) Alanine Aminotransferase (ALT/SGPT) 38 U/L (12-78) Alkaline Phosphatase 117 U/L (45-117) Total Creatine Kinase 131 U/L (39-308) Creatine Kinase MB 1.0 ng/ml (0.5-3.6) Creatine Kinase MB Ratio 0.8 (0-3.0) Troponin I < 0.015 ng/ml (0-0.045) Pro-B-Type Natriuretic Peptide 58 pg/ml (0-900) Total Protein 7.6 gm/dl (6.4-8.2) Albumin 3.6 gm/dl (3.4-5.0) Globulin 4.0 gm/dl (2.5-4.0) Albumin/Globulin Ratio 0.9 (0.9-2) Influenza Type A Antigen Neg for Influ A (NEG) Influenza Type B Antigen Neg for Influ B (NEG) Bedside Hemoglobin 14.3 g/dl (14.0-18.0) Bedside Hematocrit 42 % (42-52) Bedside Sodium 140 mEq/L (135-144) Bedside Potassium 3.9 mEq/L (3.3-5.0) Bedside Chloride 103 mEq/L (101-112) Bedside Total CO2 26 mEq/l (24-31) Bedside Blood Urea Nitrogen 13 mg/dl (7-18) Bedside Creatinine 0.8 mg/dl (0.6-1.3) Bedside Glucose (other) 177 mg/dl (70-99) Bedside Ionized Calcium (Terri) 1.09 mmol/l (1.12-1.32) Labs reviewed by ED physician. Medications Administered Medications (Trade) Dose Ordered Sig/Nemo Route Start Time Stop Time Status Last Admin Dose Admin Albuterol/ Ipratropium (Duoneb) 12 ml ONE ONCE INH 10/07/17 11:00 10/07/17 11:01 DC 10/07/17 11:18 12 ML Methylprednisolone Sodium Succinate (Solu-Medrol IV) 60 mg NOW STAT IV 10/07/17 11:00 10/07/17 11:01 DC 10/07/17 11:21 60 MG Cefepime HCl 2000 mg/Dextrose 122 ml @ 200 mls/hr NOW STAT IV 10/07/17 12:49 10/07/17 13:25 DC 10/07/17 13:58 200 MLS/HR Levofloxacin (Levaquin / D5W) 750 mg NOW STAT IV 10/07/17 12:49 10/07/17 12:52 DC 10/07/17 13:58 750 MG Vancomycin HCl (Vancomycin 1gm/ 270ml Nss) 1 gm NOW STAT IV 10/07/17 12:49 10/07/17 12:52 DC 10/07/17 17:10 1 GM ECG Indication: SOB/dyspnea Rate (beats per minute): 95 Rhythm: normal sinus Findings: no acute ischemic change, no ectopy ED Course 1051: Past medical records reviewed. The patient was evaluated in room C12. A complete history and physical examination was performed. 1100: Ordered Solu-Medrol 60 mg , Duoneb 12 mL INH. 1249: Ordered Vancomycin HCl 1 gm IV, Levofloxacin 750 mg IV, Cefepime HCl 122 mL @ 200 mL/hr IV. 1304: I discussed the case with Julianne [place]. She will evaluate the patient for further treatment. Medical Decision Differential diagnosis: Etiologies such as infections, reactive airway disease, pneumonia, pneumothorax , COPD, CHF, cardiac ischemia, pulmonary embolism, musculoskeletal, gastrointestinal, as well as others were entertained. This is a 52-year-old male who presents emergency department complaining of shortness of breath. Upon arrival to emergency department the patient is in acute distress. For this reason he was placed immediately on BiPAP. He was given an hour-long breathing treatment and started on Solu-Medrol. I also started the patient on antibiotics. He was pancultured up. I did discuss the case with the hospitalist service who agreed to admit the patient. Patient was in agreement with the treatment plan. Blood Pressure Screening Patient's blood pressure: Normal blood pressure Consults Time Called: 1300 Consulting Physician: Julianne [place] Returned Call: 1304 I discussed the case with Julianne [place]. She will evaluate the patient for further treatment. Impression Primary Impression: Pneumonitis Additional Impression: Hypoxia Critical Care I have personally spent greater than 30 minutes of critical care time in the direct management of this patient. This includes bedside care, interpretation of diagnostic studies, and testing, discussion with consultants, patient, and family members, and other required patient management activities. This 30 minutes is in excess of all separately billable procedures. Scribe Attestation The scribe's documentation has been prepared under my direction and personally reviewed by me in its entirety. I confirm that the note above accurately reflects all work, treatment, procedures, and medical decision making performed by me. Departure Information Dispostion Being Evaluated By Hospitalist Referrals Brina Sweeney M.D. (MEDICAL) (PCP) Patient Instructions My [facility] Problem Qualifiers
[2017-10-07] MEDS ORDERED: ALBUT/IPRATROP 3MG/0.5MG NEB 3 ML VIAL INH ONE (11:00)
[2017-10-07] MEDS ORDERED: METHYLPREDNISOLONE 125 MG VIAL IV STA (11:00)
[2017-10-07 11:19] LABS: BASO % 0.2 %; BASO ABS # 0.02 K/uL (0-0.2); EOS % 0.1 %; EOS ABS # 0.01 K/uL (0-0.5); HEMATOCRIT 41.5 % (42-52); HEMOGLOBIN 14.6 g/dL (14.0-18.0); IG# 0.04 K/uL (0.00-0.02); LYMPH % 11.3 %; LYMPH ABS # 1.24 K/uL (1.2-3.4); MEAN CELL VOLUME 88.5 fL (80-100); MEAN CORPUSCULAR HEMOGLOBIN 31.1 pg (25-34); MEAN CORPUSCULAR HGB CONC 35.2 g/dl (32-36); MEAN PLATELET VOLUME 10.3 fL (7.4-10.4); MONO % 4.2 %; MONO ABS # 0.46 K/uL (0.11-0.59); NEUT % 83.8 %; PLATELET COUNT 184 K/uL (130-400); RED CELL DISTRIBUTION WIDTH CV 13.1 % (11.5-14.5); RED CELL DISTRIBUTION WIDTH SD 42.3 fL (36.4-46.3); WHITE BLOOD COUNT 10.97 K/uL (4.8-10.8)
[2017-10-07] MEDS ORDERED: IPRASOL4 INH (11:38)
[2017-10-07] MEDS ORDERED: ASPI81TA28 PO (11:38)
[2017-10-07 11:40] LABS: ALBUMIN 3.6 gm/dl (3.4-5.0); ALT/SGPT 38 U/L (12-78); AST/SGOT 26 U/L (15-37); BLOOD UREA NITROGEN 13 mg/dl (7-18); CALCIUM 8.5 mg/dl (8.5-10.1); CARBON DIOXIDE 25 mmol/L (21-32); CREATININE 0.83 mg/dl (0.60-1.40); GLUCOSE 173 mg/dl (70-99); POTASSIUM 3.8 mmol/L (3.5-5.1); SODIUM 137 mmol/L (136-145)
[2017-10-07 11:40] LABS: ISTAT CREATININE 0.8 mg/dl (0.6-1.3); ISTAT IONIZED CALCIUM 1.09 mmol/l (1.12-1.32); ISTAT POTASSIUM 3.9 mEq/L (3.3-5.0)
[2017-10-07 11:42] LABS: ALKALINE PHOSPHATASE 117 U/L (45-117); TOTAL PROTEIN 7.6 gm/dl (6.4-8.2)
[2017-10-07] MEDS ORDERED: OPTIRAY 320 IV PRN (11:45)
[2017-10-07 12:03] LABS: INFLUENZA B ANTIGEN Neg for Influ B (NEG)
--- NOTE | 2017-10-07 12:03 | DIAGNOSTIC IMAGING REPORT ---
SINGLE VIEW CHEST CLINICAL HISTORY: Dyspnea. FINDINGS: An AP, portable, upright chest radiograph is compared to study dated 01/29/2017 and correlated with chest CT dated 05/02/2017. The examination is degraded by portable technique, scoliosis, and patient rotation. The heart is top normal for projection. The pulmonary vasculature is noncongested. Chronic interstitial thickening is noted. Bibasilar atelectasis is observed. There is no airspace consolidation typical for pneumonia or large pleural effusion. There is no pneumothorax. The skeletal structures are osteopenic. There is moderate to advanced thoracolumbar scoliosis with significant distortion of the thoracic cage. IMPRESSION: No acute cardiopulmonary abnormality is identified. Electronically signed by: Nate Haynes M.D. 10/07/2017 12:01 PM Dictated Date/Time: 10/07/2017 11:59 AM
--- NOTE | 2017-10-07 12:44 | DIAGNOSTIC IMAGING REPORT ---
CT ANGIOGRAM OF THE CHEST CLINICAL HISTORY: Shortness of breath. Possible pulmonary embolus. COMPARISON STUDY: 05/02/2017 TECHNIQUE: Following the IV administration of 92 mL of Optiray-320, CT angiogram of the thorax was performed from the thoracic inlet to the lung bases utilizing the pulmonary embolus protocol. Images are reviewed in the axial, sagittal, and coronal planes. IV contrast was administered without complication. MIP imaging was performed. A dose lowering technique was utilized adhering to the principles of ALARA. CT DOSE: 421.23 mGy.cm FINDINGS: There is no pathologic mediastinal lymphadenopathy. Enlarged calcified right hilar lymph nodes remain stable and are likely postinflammatory. There is no pathologic axillary lymphadenopathy. There was no evidence of thoracic aortic dilatation. Pulmonary nodule opacification is somewhat less than optimal. There are no definite pulmonary artery filling defects to indicate acute pulmonary embolism. No pleural effusions are visualized. There are progressive bilateral groundglass pulmonary airspace opacities, likely infectious/inflammatory. There is mild subpleural reticulation. There is mild hepatic steatosis. There is a marked scoliosis. IMPRESSION: 1. Less than optimal pulmonary artery opacification, but no evidence of acute pulmonary embolism 2. Bilateral subpleural reticulation 3. Progressive bilateral groundglass pulmonary opacities with upper lung zone predominance. These are likely infectious/inflammatory. Electronically signed by: Isma London M.D. 10/07/2017 12:42 PM Dictated Date/Time: 10/07/2017 12:37 PM
[2017-10-07] MEDS ORDERED: CEFEPIME IV 2,000 MG in DEXTROSE 5% 100ML 100 ML IV STA (12:49)
[2017-10-07] MEDS ORDERED: VANCOMYCIN 1GM/270ML NSS IV STA (12:49)
[2017-10-07] MEDS ORDERED: LEVAQUIN 750MG / 150ML D5W IV STA (12:49)
[2017-10-07] MEDS ORDERED: ACETAMINOPHEN 325 MG TAB PO PRN (13:30)
[2017-10-07] MEDS ORDERED: SUMATRIPTAN SUCCINATE 50 MG TAB PO PRN (13:30)
[2017-10-07] MEDS ORDERED: ENOXAPARIN 40 MG/0.4 ML SYR SC SCH (13:30)
[2017-10-07] MEDS ORDERED: LEVALBUTEROL/IPRATROPIUM NEB INH PRN (13:30)
[2017-10-07] MEDS ORDERED: ONDANSETRON INJ 2 MG/ML 2 ML VIAL IV PRN (13:30)
--- NOTE | 2017-10-07 14:57 | History and Physical ---
History & Physical Date & Time of Service: Oct 07, 2017 at 14:57 Chief Complaint: Sob,Sick ,Fever Primary Care Physician: Brina Sweeney M.D. (MEDICAL) History of Present Illness Source: patient, family 52 male with history of Hypersensitivity Pneumonitis, Moderate Asthma, GRACIE, Depression/GERD, Migraine, presenting with shortness of breath. Patient reports having a few day history of cough, shortness of breath, some sputum production and chills. Was seen by PCP 2 days ago, thought to have allergic rhinitis. No improvement of symptoms since. Presented to the ER, placed on Bipap. CT chest showing increased bilateral groundglass opacities Given Solumedrol, Nebs, Levaquin. On exam, patient on Bipap, comfortable, not in distress, speaks in sentences with no effort. States he feels slightly better, improved with Bipap. Denies other symptoms. Past Medical/Surgical History Medical Problems: (1) Asthma Status: Chronic (2) Asthma, mild persistent Status: Chronic (3) Calculus of kidney and ureter Status: Resolved (4) Chronic back pain Status: Chronic (5) Depression Status: Chronic (6) Depression Status: Chronic (7) Dyslipidemia Status: Chronic (8) Dyslipidemia Status: Chronic (9) Gastroesophageal reflux disease Status: Chronic (10) GERD (gastroesophageal reflux disease) Status: Chronic (11) Kidney stone Status: Resolved (12) Migraine Status: Chronic (13) Migraine Status: Chronic (14) Pancreatitis Status: Resolved (15) Scoliosis Status: Chronic (16) Sleep disorder Status: Chronic Surgical Problems: (1) H/O colonoscopy Status: Chronic (2) History of back surgery Status: Chronic (3) S/p fragment kidney stone by shock wave Status: Chronic (4) S/P nasal surgery Status: Chronic (5) S/P tonsillectomy Status: Chronic (6) S/p ureteral stent placement Status: Chronic (7) spinal surgery due to scoliosis Status: Resolved Family History Diabetes mellitus FATHER FH: cancer BROTHER (lung [place]) FH: heart disease FATHER (fatal [place]/stroke age 79) BROTHER ([place] in early 50s) FH: kidney disease FHx: gallstones Hypertension Stroke FATHER Social History Smoking Status: Former Smoker Drug Use: none Marital Status: Housing status: lives with family Occupational Status: employed Immunizations History of Influenza Vaccine: Yes Influenza Vaccine Date: Aug 13, 2012 History of Tetanus Vaccine?: Yes History of Pneumococcal: Yes Pneumococcal Date: Jul 16, 2010 History of Hepatitis B Vaccine: Yes Multi-Drug Resistant Organisms History of MDRO: No Allergies Coded Allergies: No Known Allergies (Unverified , 10/07/17) Home Medications Scheduled Albuterol Sulfate (Proventil Hfa), 2 PUFFS INH QID Amitriptyline Hcl (Amitriptyline Hcl), 50 MG PO HS Aspirin (Aspirin Ec), 81 MG PO DAILY Fish Oil ([place]-3), 2 CAP PO DAILY Fluticasone Propionate (Flovent Hfa), 2 PUFFS INH DAILY Paroxetine Hcl (Paxil), 40 MG PO DAILY Ranitidine Hcl (Ranitidine Hcl), 2 TAB PO DAILY Sumatriptan Succinate (Imitrex), 50 MG PO PRN Scheduled PRN Ipratropium-Albuterol (Duoneb), 1 TREATMENT INH Q4H PRN for ASTHMA Review of Systems Constitutional- no fever; no weight loss Eyes- no acute visual changes ENT- no sinus drainage; no pharyngitis Pulmonary- as noted above Cardiac- no chest pain, no palpitations, no orthopnea, no dependent edema GI- no nausea, no vomiting, no diarrhea, no melena, no hematochezia - no dysuria, no hematuria Musculoskeletal- no arthralgias, no myalgias Derm- no rashes, no new skin lesions, no changing skin lesions Hematologic- no unusual bruising, no unusual bleeding Lymphatics- no adenopathy Endocrine- no polyuria or polydipsia; no heat or cold intolerance Neuro- no headaches, no focal neurologic symptoms Psych- no anxiety, no depression Physical Exam Vital Signs Date Time Temp Pulse Resp B/P (MAP) Pulse Ox O2 Delivery O2 Flow Rate FiO2 10/07/17 13:26 88 10/07/17 13:24 84 130/79 92 BiPAP 24 10/07/17 12:32 96 115/77 96 BiPAP 24 10/07/17 11:45 97 109/72 98 BiPAP 24 10/07/17 11:20 93 96 30 10/07/17 11:19 93 16 92 Room Air 10/07/17 11:17 99 BiPAP 10/07/17 10:59 91 Room Air 10/07/17 10:52 102 10/07/17 10:38 36.9 103 24 161/92 92 Room Air General Appearance: WD/WN, no apparent distress Head: normocephalic, atraumatic Eyes: normal inspection, PERRL, EOMI, sclerae normal ENT: normal ENT inspection, TMs normal, pharynx normal Neck: supple, no adenopathy, thyroid normal, no JVD, trachea midline Respiratory/Chest: chest non-tender, no respiratory distress, no accessory muscle use, + rhonchi (occasional, bilateral) Cardiovascular: regular rate, rhythm, no edema, no gallop, no JVD, no murmur Abdomen/GI: normal bowel sounds, non tender, soft Back: normal inspection, no CVA tenderness Extremities/Musculoskelatal: normal inspection, no calf tenderness, normal capillary refill, no pedal edema Neurologic/Psych: cider maker II-XII nml as tested, no motor/sensory deficits, alert, normal mood/affect, normal reflexes, oriented x 3 Skin: normal color, warm/dry, no rash Lymphatic: no adenopathy Diagnostics Laboratory Results Results Past 24 Hours Test 10/07/17 11:10 10/07/17 11:28 10/07/17 13:57 Range/Units White Blood Count 10.97 4.8-10.8 K/uL Red Blood Count 4.69 4.7-6.1 M/uL Hemoglobin 14.6 14.0-18.0 g/dL Hematocrit 41.5 42-52 % Mean Corpuscular Volume 88.5 80-100 fL Mean Corpuscular Hemoglobin 31.1 25-34 pg Mean Corpuscular Hemoglobin Concent 35.2 32-36 g/dl Platelet Count 184 130-400 K/uL Mean Platelet Volume 10.3 7.4-10.4 fL Neutrophils (%) (Auto) 83.8 % Lymphocytes (%) (Auto) 11.3 % Monocytes (%) (Auto) 4.2 % Eosinophils (%) (Auto) 0.1 % Basophils (%) (Auto) 0.2 % Neutrophils # (Auto) 9.20 1.4-6.5 K/uL Lymphocytes # (Auto) 1.24 1.2-3.4 K/uL Monocytes # (Auto) 0.46 0.11-0.59 K/uL Eosinophils # (Auto) 0.01 0-0.5 K/uL Basophils # (Auto) 0.02 0-0.2 K/uL RDW Standard Deviation 42.3 36.4-46.3 fL RDW Coefficient of Variation 13.1 11.5-14.5 % Immature Granulocyte % (Auto) 0.4 % Immature Granulocyte # (Auto) 0.04 0.00-0.02 K/uL Sodium Level 137 136-145 mmol/L Potassium Level 3.8 3.5-5.1 mmol/L Chloride Level 105 98-107 mmol/L Carbon Dioxide Level 25 21-32 mmol/L Anion Gap 7.0 17.0 16-25 mmol/L Blood Urea Nitrogen 13 7-18 mg/dl Creatinine 0.83 0.60-1.40 mg/dl Est Creatinine Clear Calc Drug Dose 119.1 ml/min Estimated GFR () 116.4 Estimated GFR (Non- 100.5 BUN/Creatinine Ratio 15.7 10-20 Random Glucose 173 70-99 mg/dl Calcium Level 8.5 8.5-10.1 mg/dl Total Bilirubin 0.5 0.2-1 mg/dl Aspartate Amino Transf (AST/SGOT) 26 15-37 U/L Alanine Aminotransferase (ALT/SGPT) 38 12-78 U/L Alkaline Phosphatase 117 45-117 U/L Total Creatine Kinase 131 39-308 U/L Creatine Kinase MB 1.0 0.5-3.6 ng/ml Creatine Kinase MB Ratio 0.8 0-3.0 Troponin I < 0.015 0-0.045 ng/ml Pro-B-Type Natriuretic Peptide 58 0-900 pg/ml Total Protein 7.6 6.4-8.2 gm/dl Albumin 3.6 3.4-5.0 gm/dl Globulin 4.0 2.5-4.0 gm/dl Albumin/Globulin Ratio 0.9 0.9-2 Influenza Type A Antigen Neg for Influ A NEG Influenza Type B Antigen Neg for Influ B NEG Bedside Hemoglobin 14.3 14.0-18.0 g/dl Bedside Hematocrit 42 42-52 % Bedside Sodium 140 135-144 mEq/L Bedside Potassium 3.9 3.3-5.0 mEq/L Bedside Chloride 103 101-112 mEq/L Bedside Total CO2 26 24-31 mEq/l Bedside Blood Urea Nitrogen 13 7-18 mg/dl Bedside Creatinine 0.8 0.6-1.3 mg/dl Bedside Glucose (other) 177 70-99 mg/dl Bedside Ionized Calcium (Terri) 1.09 1.12-1.32 mmol/l Arterial Blood pH 7.39 7.35-7.45 Arterial Blood Partial Pressure CO2 40 35-46 mmHg Arterial Blood Partial Pressure O2 76 80-95 mm/Hg Arterial Blood HCO3 24 19-24 mmol/L Arterial Blood Oxygen Saturation 95.1 90-95 % Arterial Blood Base Excess -1.2 -9-1.8 mEq/L Arterial Blood Gas Delivery 24% BIPAP [place] Test POS POS Microbiology Results 10/07/17 Blood Culture, Received Pending 10/07/17 Blood Culture, Received Pending Diagnostic Radiology CT chest: 1. Less than optimal pulmonary artery opacification, but no evidence of acute pulmonary embolism 2. Bilateral subpleural reticulation 3. Progressive bilateral groundglass pulmonary opacities with upper lung zone predominance. These are likely infectious/inflammatory. EKG HR 95, sinus rhythm, no ischemia Impression Assessment and Plan ACUTE ASTHMA EXACERBATION BILATERAL PNEUMONIA - sputum culture blood culture - Solumedrol 40m q8h Nebs q4h empiric Levaquin - wean off bipap accordingly - Pulmonary consulted HISTORY OF HYPERSENSITIVITY PNEUMONITIS - management as noted above GRACIE - on Bipap DEPRESSION - continue medications DVT prophylaxis - Lovenox Full code per patient Disposition anticipate d/c home when medically stable VTE Prophylaxis VTE Risk Assessment Done? Y/N: Yes Risk Level: Moderate Given or contraindicated: Enoxaparin (Lovenox)SQ
[2017-10-07] MEDS ORDERED: LEVALBUTEROL/IPRATROPIUM NEB INH SCH (15:00)
[2017-10-07 15:46] LABS: PTT PATIENT 29.7 SECONDS (21.0-31.0)
[2017-10-07] MEDS ORDERED: IPRATROPIUM BROMIDE NEB SOLN 0.02% 2.5 ML VIAL INH PRN (17:45)
[2017-10-07] MEDS ORDERED: LEVALBUTEROL 1.25MG/0.5ML NEB INH PRN (17:45)
[2017-10-07] MEDS: METHYLPREDNISOLONE IV 40 MG in SYRINGE 0 ML IV SCH (18:30)
[2017-10-07] MEDS: LEVALBUTEROL 1.25MG/0.5ML NEB INH SCH ×2 (19:39→23:33)
[2017-10-07] MEDS: IPRATROPIUM BROMIDE NEB SOLN 0.02% 2.5 ML VIAL INH SCH ×2 (19:39→23:33)
--- NOTE | 2017-10-07 19:44 | Pulmonary Consultation ---
History General Date of Service: Oct 07, 2017. Chief Complaint: shortness of breath Stated Complaint: Asthma Exacerbation not asthmaticus HPI The patient is a 52 year old male who presents to [facility] with complaints of Asthma Exacerbation. The patient's primary care provider is Brina Sweeney M.D. (MEDICAL). The patient is a patient of Dr. Lemuel Barker's. Bronchoscopy this week and had no significant improvement. He continues shortness of breath so he presented to the emergency department today for further evaluation treatment. He was found to be bronchospastic and had an hour-long nebulizer treatment. The pulmonary service was consulted to see the patient and saw him in room 236. At the time of our examination the patient was in no acute distress. He was mouth breathing. He had no audible wheezes. He could talk in full sentences without shortness of breath. He had no use of accessory muscles. The patient states that shortness of breath has been improved since being admitted. He denies recent illness. He denies fever, chills, sweats, rigors. He has no other recent illness. The patient does state that he has supplemental O2 at home as well as a CPAP and has been tolerating those therapies well. He has no recent travel. He denies pleuritic chest pain. He denies any significant sputum production or hemoptysis. Historian: patient Review of Systems A total of 12 systems was reviewed and is negative other than as listed above in the HPI All Other Symptoms All Other Systems: Reviewed and Negative Past Medical History Past Medical History: Medical Problems: (1) Asthma (2) Asthma exacerbation (3) Asthma, mild persistent (4) Calculus of kidney and ureter (5) Chronic back pain (6) Depression (7) Depression (8) Dyslipidemia (9) Dyslipidemia (10) Gastroesophageal reflux disease (11) GERD (gastroesophageal reflux disease) (12) Hypoxia (13) Kidney stone (14) Migraine (15) Migraine (16) Pancreatitis (17) Scoliosis (18) Sleep disorder Past Medical History: migraines Past Surgical History: Surgical Problems: (1) H/O colonoscopy (2) History of back surgery (3) S/p fragment kidney stone by shock wave (4) S/P nasal surgery (5) S/P tonsillectomy (6) S/p ureteral stent placement (7) spinal surgery due to scoliosis Family History Diabetes mellitus FATHER FH: cancer BROTHER (lung CA) FH: heart disease FATHER (fatal PA/stroke age 79) BROTHER (PA in early 50s) FH: kidney disease FHx: gallstones Hypertension Stroke FATHER Social History Hx Tobacco Use In Past Year?: No Smoking Status: Former Smoker Marital status: Housing status: lives with family Occupational Status: employed Immunizations History of Influenza Vaccine: Yes Influenza Vaccine Date: Aug 13, 2012 History of Tetanus Vaccine?: Yes History of Pneumococcal: Yes Pneumococcal Date: Jul 16, 2010 History of Hepatitis B Vaccine: Yes History of MDRO History of MDRO: No Allergies Coded Allergies: No Known Allergies (Unverified , 10/07/17) Current Medications Reported Home Medications Medications Dose Route/Sig Max Daily Dose Days Date Category Duoneb (Ipratropium-Albuterol) 3 Ml Nebu 1 Treatment INH Q4H PRN 10/07/17 Reported Aspirin Ec (Aspirin) 81 Mg Tab 81 Mg PO DAILY 10/07/17 Reported Proventil Hfa (Albuterol Sulfate) 108 Mcg/Act Aer 2 Puffs INH QID 01/28/17 Reported Ranitidine Hcl Unknown Strength Cap 2 Tab PO DAILY 01/28/17 Reported [place]-3 (Fish Oil) 1 Ea Cap 2 Cap PO DAILY 01/28/17 Reported Flovent Hfa (Fluticasone Propionate) 120 Puffs/11528 Mcg Aero 2 Puffs INH DAILY 30 11/19/16 Reported Imitrex (Sumatriptan Succinate) 50 Mg Tab 50 Mg PO PRN 11/02/12 Reported Amitriptyline Hcl 50 Mg Tab 50 Mg PO HS 11/02/12 Reported Paxil (Paroxetine Hcl) 40 Mg Tab 40 Mg PO DAILY 11/02/12 Reported Physical Physical Exam Vital Signs: Date Time Temp Pulse Resp B/P (MAP) Pulse Ox O2 Delivery O2 Flow Rate FiO2 10/07/17 16:31 100 Nasal Cannula 2.0 10/07/17 16:18 36.3 87 18 122/78 10/07/17 16:00 100 Nasal Cannula 10/07/17 16:00 100 Nasal Cannula 2.0 10/07/17 16:00 36.3 87 18 122/78 (93) 99 Nasal Cannula 2.0 10/07/17 15:26 86 18 95 Nasal Cannula 2.0 10/07/17 13:26 88 10/07/17 13:24 84 130/79 92 BiPAP 24 10/07/17 12:32 96 115/77 96 BiPAP 24 10/07/17 11:45 97 109/72 98 BiPAP 24 10/07/17 11:20 93 96 30 10/07/17 11:19 93 16 92 Room Air 10/07/17 11:17 99 BiPAP 10/07/17 10:59 91 Room Air 10/07/17 10:52 102 10/07/17 10:38 36.9 103 24 161/92 92 Room Air Weight in Kilograms: 95 GENERAL : No acute distress EYES: No icterus, gaze conjugate NOSE: No evidence of epistaxis. Nasal cannula in place MOUTH: No lesions or candidiasis NECK: Supple LUNGS: CTA B/L, no wheezes, rales or rhonchi. Breath sounds are equal. No diaphragmatic excursion of the chest HEART: Regular, rate controlled. No appreciation of ectopy ABDOMEN: Soft, NT, ND, BS Present EXTREMITIES: No LE edema, pedal pulses intact NEURO: A&OX3 Diagnostics Labs Results Past 24 Hours Test 10/07/17 11:10 10/07/17 11:28 10/07/17 13:57 Range/Units White Blood Count 10.97 4.8-10.8 K/uL Red Blood Count 4.69 4.7-6.1 M/uL Hemoglobin 14.6 14.0-18.0 g/dL Hematocrit 41.5 42-52 % Mean Corpuscular Volume 88.5 80-100 fL Mean Corpuscular Hemoglobin 31.1 25-34 pg Mean Corpuscular Hemoglobin Concent 35.2 32-36 g/dl Platelet Count 184 130-400 K/uL Mean Platelet Volume 10.3 7.4-10.4 fL Neutrophils (%) (Auto) 83.8 % Lymphocytes (%) (Auto) 11.3 % Monocytes (%) (Auto) 4.2 % Eosinophils (%) (Auto) 0.1 % Basophils (%) (Auto) 0.2 % Neutrophils # (Auto) 9.20 1.4-6.5 K/uL Lymphocytes # (Auto) 1.24 1.2-3.4 K/uL Monocytes # (Auto) 0.46 0.11-0.59 K/uL Eosinophils # (Auto) 0.01 0-0.5 K/uL Basophils # (Auto) 0.02 0-0.2 K/uL RDW Standard Deviation 42.3 36.4-46.3 fL RDW Coefficient of Variation 13.1 11.5-14.5 % Immature Granulocyte % (Auto) 0.4 % Immature Granulocyte # (Auto) 0.04 0.00-0.02 K/uL Prothrombin Time 10.4 9.0-12.0 SECONDS Prothromb Time International Ratio 1.0 0.9-1.1 Activated Partial Thromboplast Time 29.7 21.0-31.0 SECONDS Partial Thromboplastin Ratio 1.1 Sodium Level 137 136-145 mmol/L Potassium Level 3.8 3.5-5.1 mmol/L Chloride Level 105 98-107 mmol/L Carbon Dioxide Level 25 21-32 mmol/L Anion Gap 7.0 17.0 16-25 mmol/L Blood Urea Nitrogen 13 7-18 mg/dl Creatinine 0.83 0.60-1.40 mg/dl Est Creatinine Clear Calc Drug Dose 119.1 ml/min Estimated GFR () 116.4 Estimated GFR (Non- 100.5 BUN/Creatinine Ratio 15.7 10-20 Random Glucose 173 70-99 mg/dl Calcium Level 8.5 8.5-10.1 mg/dl Total Bilirubin 0.5 0.2-1 mg/dl Aspartate Amino Transf (AST/SGOT) 26 15-37 U/L Alanine Aminotransferase (ALT/SGPT) 38 12-78 U/L Alkaline Phosphatase 117 45-117 U/L Total Creatine Kinase 131 39-308 U/L Creatine Kinase MB 1.0 0.5-3.6 ng/ml Creatine Kinase MB Ratio 0.8 0-3.0 Troponin I < 0.015 0-0.045 ng/ml Pro-B-Type Natriuretic Peptide 58 0-900 pg/ml Total Protein 7.6 6.4-8.2 gm/dl Albumin 3.6 3.4-5.0 gm/dl Globulin 4.0 2.5-4.0 gm/dl Albumin/Globulin Ratio 0.9 0.9-2 Influenza Type A Antigen Neg for Influ A NEG Influenza Type B Antigen Neg for Influ B NEG Bedside Hemoglobin 14.3 14.0-18.0 g/dl Bedside Hematocrit 42 42-52 % Bedside Sodium 140 135-144 mEq/L Bedside Potassium 3.9 3.3-5.0 mEq/L Bedside Chloride 103 101-112 mEq/L Bedside Total CO2 26 24-31 mEq/l Bedside Blood Urea Nitrogen 13 7-18 mg/dl Bedside Creatinine 0.8 0.6-1.3 mg/dl Bedside Glucose (other) 177 70-99 mg/dl Bedside Ionized Calcium (Terri) 1.09 1.12-1.32 mmol/l Arterial Blood pH 7.39 7.35-7.45 Arterial Blood Partial Pressure CO2 40 35-46 mmHg Arterial Blood Partial Pressure O2 76 80-95 mm/Hg Arterial Blood HCO3 24 19-24 mmol/L Arterial Blood Oxygen Saturation 95.1 90-95 % Arterial Blood Base Excess -1.2 -9-1.8 mEq/L Arterial Blood Gas Delivery 24% BIPAP [place] Test POS POS Microbiology Results 10/07/17 Blood Culture, Received Pending 10/07/17 Blood Culture, Received Pending Diagnostic Radiology CT ANGIOGRAM OF THE CHEST CLINICAL HISTORY: Shortness of breath. Possible pulmonary embolus. COMPARISON STUDY: 05/02/2017 TECHNIQUE: Following the IV administration of 92 mL of Optiray-320, CT angiogram of the thorax was performed from the thoracic inlet to the lung bases utilizing the pulmonary embolus protocol. Images are reviewed in the axial, sagittal, and coronal planes. IV contrast was administered without complication. MIP imaging was performed. A dose lowering technique was utilized adhering to the principles of ALARA. CT DOSE: 421.23 mGy.cm FINDINGS: There is no pathologic mediastinal lymphadenopathy. Enlarged calcified right hilar lymph nodes remain stable and are likely postinflammatory. There is no pathologic axillary lymphadenopathy. There was no evidence of thoracic aortic dilatation. Pulmonary nodule opacification is somewhat less than optimal. There are no definite pulmonary artery filling defects to indicate acute pulmonary embolism. No pleural effusions are visualized. There are progressive bilateral groundglass pulmonary airspace opacities, likely infectious/inflammatory. There is mild subpleural reticulation. There is mild hepatic steatosis. There is a marked scoliosis. IMPRESSION: 1. Less than optimal pulmonary artery opacification, but no evidence of acute pulmonary embolism 2. Bilateral subpleural reticulation 3. Progressive bilateral groundglass pulmonary opacities with upper lung zone predominance. These are likely infectious/inflammatory. Electronically signed by: Isma London M.D. 10/07/2017 12:42 PM Impression Assessment and Plan ACUTE ASTHMA EXACERBATION * Patient follows with Dr. Barker as an outpatient * DuoNeb nebulizer treatments, Proventil and occasional prednisone at home * Medication reconciliation for home medications show Flovent however patient denies use * Continue with IV Solu-Medrol, scheduled and as needed duo nebs * Empirically antibiotics secondary to CT scan findings * Follow on telemetry OBSTRUCTIVE SLEEP APNEA * Patient has CPAP at home * Continue CPAP at bedtime and with naps GI * Continue ranitidine while patient is on steroids DVT PROPHYLAXIS * Agree with enoxaparin Thank you for including us in the care of this patient. We will continue to follow along with you during the course of this hospital stay. Please refer to Dr. Nelson's addendum for further recommendations. Physician Supervision Note: I was present with Nate Benton PA-C during the history and exam. I discussed the case with him and agree with the findings and plan as documented in the note. Any exceptions or clarifications are listed here: Patient with long history of asthma, admitted with an episode of asthma exacerbation. 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
[2017-10-07] MEDS: AMITRIPTYLINE HCL 50 MG TAB PO SCH (20:29)
[2017-10-07] MEDS: ENOXAPARIN 40 MG/0.4 ML SYR SC SCH (20:30)
[2017-10-07] MEDS: SODIUM CHLORIDE 0.9% 1000ML 1,000 ML IV SCH (20:30)
[2017-10-08] VITALS (13 sets, daily range): BP systolic 119–141; BP diastolic 69–85; PULSE 64–109; TEMP 36.5–36.9; O2SAT 91–97
[2017-10-08] MEDS: METHYLPREDNISOLONE IV 40 MG in SYRINGE 0 ML IV SCH ×3 (01:32→18:26)
[2017-10-08] MEDS: LEVALBUTEROL 1.25MG/0.5ML NEB INH SCH ×6 (03:08→23:08)
[2017-10-08] MEDS: IPRATROPIUM BROMIDE NEB SOLN 0.02% 2.5 ML VIAL INH SCH ×6 (03:08→23:08)
[2017-10-08] MEDS ORDERED: COUGH DROP (SUGAR FREE) LOZ 24 LOZ/1 BOX ONE (05:27)
[2017-10-08] MEDS: SODIUM CHLORIDE 0.9% 1000ML 1,000 ML IV SCH (05:34)
[2017-10-08] MEDS ORDERED: NURSING DECISION MEDICATION ORDER SCH (05:45)
[2017-10-08] MEDS ORDERED: COUGH DROP (SUGAR FREE) LOZ 24 LOZ/1 BOX PO PRN (06:00)
[2017-10-08 07:07] LABS: HEMATOCRIT 39.6 % (42-52); HEMOGLOBIN 13.6 g/dL (14.0-18.0); IG# 0.04 K/uL (0.00-0.02); LYMPH % 11.1 %; LYMPH ABS # 1.56 K/uL (1.2-3.4); MEAN CORPUSCULAR HEMOGLOBIN 30.2 pg (25-34); MEAN CORPUSCULAR HGB CONC 34.3 g/dl (32-36); MEAN PLATELET VOLUME 10.3 fL (7.4-10.4); MONO % 4.1 %; MONO ABS # 0.58 K/uL (0.11-0.59); NEUT % 84.5 %; NEUT ABS # 11.87 K/uL (1.4-6.5); PLATELET COUNT 197 K/uL (130-400); RED CELL DISTRIBUTION WIDTH CV 12.9 % (11.5-14.5); RED CELL DISTRIBUTION WIDTH SD 41.3 fL (36.4-46.3); WHITE BLOOD COUNT 14.05 K/uL (4.8-10.8)
[2017-10-08 07:31] LABS: CALCIUM 8.3 mg/dl (8.5-10.1); CREATININE 0.85 mg/dl (0.60-1.40); POTASSIUM 3.6 mmol/L (3.5-5.1)
[2017-10-08] MEDS: LEVOFLOXACIN / D5W 750 MG in PREMIXED IN D5W 150 ML IV SCH (08:14)
[2017-10-08] MEDS: RANITIDINE HCL 150 MG TAB PO SCH (08:15)
[2017-10-08] MEDS: PAROXETINE 20 MG TAB PO SCH (08:15)
[2017-10-08] MEDS: ASPIRIN 81 MG ECTAB PO SCH (08:15)
[2017-10-08] MEDS: FLUTICASONE HFA 110MCG INHALER INH SCH (08:15)
--- NOTE | 2017-10-08 15:28 | Pulmonology Progress Note ---
Pulmonary Progress Note Date of Service Oct 08, 2017. Attending Dr. Nelson Subjective Patient seen and examined at bedside. He reports he had some wheezing last night some shortness of breath but did not reported to nursing. The patient does have CPAP at home and is tolerating CPAP here in the hospital. He had no documented hypoxia, tachypnea or other pulmonary problems overnight. This morning nursing notes reported "patient is visibly SOB at rest o2 sat 94% on 2LNC, patient reports he feels ok". Patient affirms. He denies fever, chills, sweats, rigors. No chest pain or back pain. He denies flank pain. He has no nausea or vomiting or diarrhea. He has no acute complaints other than some very mild dyspnea Objective Vital Signs - as noted below Laboratory Data - as noted below Physical Exam: General - NAD. Resting comfortably in bed area and no use of accessory muscles Eyes - No icterus, gaze conjugate ENT - Mucosa moist, no lesions or candidiasis Neck - Supple, No JVD Lungs - No bronchospasm, rales, or rhonchi. Patient reports that he had some wheezes earlier in the day. Nurse states that he had some lower bilateral wheezes prior to his nebulizer treatment Heart - Regular, rate controlled Abdomen - Soft, NT, ND, BS present Extremities - No edema, pedal pulses intact Neuro - A&OX3 Assessment & Plan ASTHMA * Patient indicates that he forgot he was on Flovent at home. That has been administrated this hospital stay during his inpatient visit * Patient did receive DuoNeb treatment overnight with effect * Patient has no current shortness of breath and certainly is not in extremis * We'll continue with nebulizer treatments, steroids, supplemental O2 to maintain SaO2 greater than 90%. * I would recommend continue nebulizers, taper steroids as tolerated, and wean off O2 At this time will sign off of this patient. I have discussed this with Dr. Langley Please refer to Dr. Nelson's addendum for further recommendations. Data Medications: Current Inpatient Medications Medications (Trade) Dose Ordered Sig/Nemo Route Start Time Stop Time Status Last Admin Dose Admin Ioversol (Optiray 320) 100 ml UD PRN IV 10/07/17 11:45 10/11/17 11:44 Methylprednisolone Sodium Succinate 40 mg/Syringe 0.64 ml @ 1.5 mls/min Q8H IV 10/07/17 18:00 11/06/17 17:59 10/08/17 08:15 1.5 MLS/MIN Levofloxacin 750 mg/Prmx 150 ml @ 100 mls/hr Q24H IV 10/08/17 08:00 10/15/17 07:59 10/08/17 08:14 100 MLS/HR Amitriptyline HCl (Elavil Tab) 50 mg HS PO 10/07/17 21:00 11/06/17 20:59 10/07/17 20:29 50 MG Aspirin (Ecotrin Tab) 81 mg DAILY PO 10/08/17 09:00 11/07/17 08:59 10/08/17 08:15 81 MG Fluticasone Propionate (Flovent Hfa 110MCG Inhaler) 2 puffs DAILY INH 10/08/17 09:00 11/07/17 08:59 10/08/17 08:15 2 PUFFS Paroxetine HCl (pAXil TAB) 40 mg DAILY PO 10/08/17 09:00 11/07/17 08:59 10/08/17 08:15 40 MG Sumatriptan Succinate (Imitrex Tab) 50 mg UD PRN PO 10/07/17 13:30 11/06/17 13:29 Ranitidine HCl (zANTac TAB) 300 mg DAILY PO 10/08/17 09:00 11/07/17 08:59 10/08/17 08:15 300 MG Sodium Chloride 1,000 ml @ 80 mls/hr [id number] IV 10/07/17 18:15 11/06/17 18:14 10/08/17 05:34 80 MLS/HR Acetaminophen (Tylenol Tab) 650 mg Q4H PRN PO 10/07/17 13:30 11/06/17 13:29 Ondansetron HCl (Zofran Inj) 4 mg Q6H PRN IV 10/07/17 13:30 11/06/17 13:29 Enoxaparin Sodium (Lovenox Inj) 40 mg Q24H SC 10/07/17 21:00 11/06/17 20:59 10/07/17 20:30 40 MG Ipratropium [place] (Atrovent 0.02% 0.5MG/2.5ML Neb) 0.5 mg Q4R INH 10/07/17 20:00 11/06/17 19:59 10/08/17 11:29 0.5 MG Levalbuterol (Xopenex 1.25MG/ 0.5ML Neb) 1.25 mg Q4R INH 10/07/17 20:00 11/06/17 19:59 10/08/17 11:29 1.25 MG Ipratropium [place] (Atrovent 0.02% 0.5MG/2.5ML Neb) 0.5 mg Q4H PRN INH 10/07/17 17:45 11/06/17 17:44 Levalbuterol (Xopenex 1.25MG/ 0.5ML Neb) 1.25 mg Q4H PRN INH 10/07/17 17:45 11/06/17 17:44 Menthol (Nice Ally) 1 ally PRN PRN PO 10/08/17 06:00 11/07/17 05:59 I & O: 24-Hour Column 10/09/17 07:59 Intake Total 550 ml Output Total 800 ml Balance -250 ml Vital Signs: Date Time Temp Pulse Resp B/P (MAP) Pulse Ox O2 Delivery O2 Flow Rate FiO2 10/08/17 12:02 36.5 93 19 123/72 (89) 94 Room Air 10/08/17 12:00 Nasal Cannula 2.0 10/08/17 11:29 64 16 96 Room Air 10/08/17 08:00 Nasal Cannula 2.0 10/08/17 07:34 36.6 93 19 124/79 (94) 92 Nasal Cannula 2.0 10/08/17 07:09 90 16 95 Room Air 10/08/17 03:41 Nasal Cannula 2.0 10/08/17 03:41 36.5 97 22 141/85 (103) 93 Nasal Cannula 2.0 10/08/17 03:08 98 16 91 Room Air 10/08/17 00:23 36.9 103 18 119/72 (88) 91 Room Air 10/08/17 00:00 Room Air 10/07/17 23:34 90 16 91 Room Air 10/07/17 19:42 91 16 94 Room Air 10/07/17 19:24 36.7 91 19 145/83 (103) 93 Nasal Cannula 1.0 10/07/17 19:15 Nasal Cannula 2.0 10/07/17 16:31 100 Nasal Cannula 2.0 10/07/17 16:18 36.3 87 18 122/78 10/07/17 16:00 100 Nasal Cannula 10/07/17 16:00 100 Nasal Cannula 2.0 10/07/17 16:00 36.3 87 18 122/78 (93) 99 Nasal Cannula 2.0 10/07/17 15:26 86 18 95 Nasal Cannula 2.0 Laboratory Results: Last 24 Hours Test 10/08/17 03:30 10/08/17 06:19 Urine Color YELLOW Urine Appearance CLEAR Urine pH 5.0 Urine Specific [place] 1.036 Urine Protein NEG Urine Glucose (UA) NEG Urine Ketones TRACE Urine Occult Blood TRACE Urine Nitrite NEG Urine Bilirubin NEG Urine Urobilinogen NEG Urine Leukocyte Esterase NEG Urine WBC (Auto) 0 /hpf Urine RBC (Auto) 0-4 /hpf Urine Hyaline Casts (Auto) 1-5 /lpf Urine Epithelial Cells (Auto) 0-5 /lpf Urine Bacteria (Auto) NEG White Blood Count 14.05 K/uL Red Blood Count 4.50 M/uL Hemoglobin 13.6 g/dL Hematocrit 39.6 % Mean Corpuscular Volume 88.0 fL Mean Corpuscular Hemoglobin 30.2 pg Mean Corpuscular Hemoglobin Concent 34.3 g/dl Platelet Count 197 K/uL Mean Platelet Volume 10.3 fL Neutrophils (%) (Auto) 84.5 % Lymphocytes (%) (Auto) 11.1 % Monocytes (%) (Auto) 4.1 % Eosinophils (%) (Auto) 0.0 % Basophils (%) (Auto) 0.0 % Neutrophils # (Auto) 11.87 K/uL Lymphocytes # (Auto) 1.56 K/uL Monocytes # (Auto) 0.58 K/uL Eosinophils # (Auto) 0.00 K/uL Basophils # (Auto) 0.00 K/uL RDW Standard Deviation 41.3 fL RDW Coefficient of Variation 12.9 % Immature Granulocyte % (Auto) 0.3 % Immature Granulocyte # (Auto) 0.04 K/uL Sodium Level 136 mmol/L Potassium Level 3.6 mmol/L Chloride Level 105 mmol/L Carbon Dioxide Level 25 mmol/L Anion Gap 6.0 mmol/L Blood Urea Nitrogen 14 mg/dl Creatinine 0.85 mg/dl Est Creatinine Clear Calc Drug Dose 114.2 ml/min Estimated GFR () 115.3 Estimated GFR (Non- 99.5 BUN/Creatinine Ratio 16.1 Random Glucose 150 mg/dl Calcium Level 8.3 mg/dl
[2017-10-08] MEDS ORDERED: NURSING VERBAL MED ORDER ONE (18:45)
--- NOTE | 2017-10-08 20:02 | Progress Note ---
Medicine Progress Note Date & Time of Visit: Oct 08, 2017 at 19:58. Subjective patient seen resting in bed, comfortable not in distress states breathing is slightly improved compared to yesterday has dyspnea with minimal exertion- walking from bed to the toilet still has dry cough denies chest pain no other symptoms Objective Last 8 Hrs Date Time Temp Pulse Resp B/P (MAP) Pulse Ox O2 Delivery O2 Flow Rate FiO2 10/08/17 19:52 95 18 95 Nasal Cannula 2.0 10/08/17 19:28 36.7 94 20 131/79 (96) 94 Nasal Cannula 2.0 10/08/17 16:00 Nasal Cannula 2.0 10/08/17 15:33 100 18 95 Nasal Cannula 2.0 10/08/17 15:18 36.7 103 20 134/81 (98) 94 Nasal Cannula 2.0 10/08/17 12:02 36.5 93 19 123/72 (89) 94 Room Air 10/08/17 12:00 Nasal Cannula 2.0 Physical Exam: General-oriented x 3, not in distress, speaks in sentences with some effort, no acc muscle use Head- atraumatic Eyes- EOMI, anicteric Neck- supple, no JVD Lungs- slightly diminished but clear breath sounds bilaterally, no wheezing, no rales Heart- regular rhythm; no murmur, normal rate Abdomen- normal bowel sounds, soft, nontender Extremities- no pretibial edema, no calf tenderness; peripheral pulses intact Neuro- alert, oriented x 3; no gross focal deficits Skin- warm & dry Laboratory Results: Last 24 Hours Test 10/08/17 03:30 10/08/17 06:19 Urine Color YELLOW Urine Appearance CLEAR Urine pH 5.0 Urine Specific [place] 1.036 Urine Protein NEG Urine Glucose (UA) NEG Urine Ketones TRACE Urine Occult Blood TRACE Urine Nitrite NEG Urine Bilirubin NEG Urine Urobilinogen NEG Urine Leukocyte Esterase NEG Urine WBC (Auto) 0 /hpf Urine RBC (Auto) 0-4 /hpf Urine Hyaline Casts (Auto) 1-5 /lpf Urine Epithelial Cells (Auto) 0-5 /lpf Urine Bacteria (Auto) NEG White Blood Count 14.05 K/uL Red Blood Count 4.50 M/uL Hemoglobin 13.6 g/dL Hematocrit 39.6 % Mean Corpuscular Volume 88.0 fL Mean Corpuscular Hemoglobin 30.2 pg Mean Corpuscular Hemoglobin Concent 34.3 g/dl Platelet Count 197 K/uL Mean Platelet Volume 10.3 fL Neutrophils (%) (Auto) 84.5 % Lymphocytes (%) (Auto) 11.1 % Monocytes (%) (Auto) 4.1 % Eosinophils (%) (Auto) 0.0 % Basophils (%) (Auto) 0.0 % Neutrophils # (Auto) 11.87 K/uL Lymphocytes # (Auto) 1.56 K/uL Monocytes # (Auto) 0.58 K/uL Eosinophils # (Auto) 0.00 K/uL Basophils # (Auto) 0.00 K/uL RDW Standard Deviation 41.3 fL RDW Coefficient of Variation 12.9 % Immature Granulocyte % (Auto) 0.3 % Immature Granulocyte # (Auto) 0.04 K/uL Sodium Level 136 mmol/L Potassium Level 3.6 mmol/L Chloride Level 105 mmol/L Carbon Dioxide Level 25 mmol/L Anion Gap 6.0 mmol/L Blood Urea Nitrogen 14 mg/dl Creatinine 0.85 mg/dl Est Creatinine Clear Calc Drug Dose 114.2 ml/min Estimated GFR () 115.3 Estimated GFR (Non- 99.5 BUN/Creatinine Ratio 16.1 Random Glucose 150 mg/dl Calcium Level 8.3 mg/dl Assessment & Plan ACUTE ASTHMA EXACERBATION BILATERAL PNEUMONIA - sputum culture: none collected so far blood cultures: pending - improving gradually - for now continue: - Solumedrol 40m q8h Nebs q4h empiric Levaquin - wean off O2 supplement accordingly - Pulmonary consulted, appreciate the input HISTORY OF HYPERSENSITIVITY PNEUMONITIS - management as noted above GRACIE - supposed to be on CPAP DEPRESSION - continue medications DVT prophylaxis - Lovenox Full code per patient Disposition anticipate d/c home when medically stable will need 2 step on discharge day Current Inpatient Medications: Current Inpatient Medications Medications (Trade) Dose Ordered Sig/Nemo Route Start Time Stop Time Status Last Admin Dose Admin Ioversol (Optiray 320) 100 ml UD PRN IV 10/07/17 11:45 10/11/17 11:44 Methylprednisolone Sodium Succinate 40 mg/Syringe 0.64 ml @ 1.5 mls/min Q8H IV 10/07/17 18:00 11/06/17 17:59 10/08/17 18:26 1.5 MLS/MIN Levofloxacin 750 mg/Prmx 150 ml @ 100 mls/hr Q24H IV 10/08/17 08:00 10/15/17 07:59 10/08/17 08:14 100 MLS/HR Amitriptyline HCl (Elavil Tab) 50 mg HS PO 10/07/17 21:00 11/06/17 20:59 10/07/17 20:29 50 MG Aspirin (Ecotrin Tab) 81 mg DAILY PO 10/08/17 09:00 11/07/17 08:59 10/08/17 08:15 81 MG Fluticasone Propionate (Flovent Hfa 110MCG Inhaler) 2 puffs DAILY INH 10/08/17 09:00 11/07/17 08:59 10/08/17 08:15 2 PUFFS Paroxetine HCl (pAXil TAB) 40 mg DAILY PO 10/08/17 09:00 11/07/17 08:59 10/08/17 08:15 40 MG Sumatriptan Succinate (Imitrex Tab) 50 mg UD PRN PO 10/07/17 13:30 11/06/17 13:29 Ranitidine HCl (zANTac TAB) 300 mg DAILY PO 10/08/17 09:00 11/07/17 08:59 10/08/17 08:15 300 MG Acetaminophen (Tylenol Tab) 650 mg Q4H PRN PO 10/07/17 13:30 11/06/17 13:29 Ondansetron HCl (Zofran Inj) 4 mg Q6H PRN IV 10/07/17 13:30 11/06/17 13:29 Enoxaparin Sodium (Lovenox Inj) 40 mg Q24H SC 10/07/17 21:00 11/06/17 20:59 10/07/17 20:30 40 MG Ipratropium [place] (Atrovent 0.02% 0.5MG/2.5ML Neb) 0.5 mg Q4R INH 10/07/17 20:00 11/06/17 19:59 10/08/17 19:50 0.5 MG Levalbuterol (Xopenex 1.25MG/ 0.5ML Neb) 1.25 mg Q4R INH 10/07/17 20:00 11/06/17 19:59 10/08/17 19:50 1.25 MG Ipratropium [place] (Atrovent 0.02% 0.5MG/2.5ML Neb) 0.5 mg Q4H PRN INH 10/07/17 17:45 11/06/17 17:44 Levalbuterol (Xopenex 1.25MG/ 0.5ML Neb) 1.25 mg Q4H PRN INH 10/07/17 17:45 11/06/17 17:44 Menthol (Nice Ally) 1 ally PRN PRN PO 10/08/17 06:00 11/07/17 05:59
[2017-10-08] MEDS: ENOXAPARIN 40 MG/0.4 ML SYR SC SCH (20:36)
[2017-10-08] MEDS: AMITRIPTYLINE HCL 50 MG TAB PO SCH (20:36)
[2017-10-09] VITALS (13 sets, daily range): BP systolic 123–139; BP diastolic 73–83; PULSE 84–102; TEMP 36.4–36.8; O2SAT 91–98
[2017-10-09] MEDS: METHYLPREDNISOLONE IV 40 MG in SYRINGE 0 ML IV SCH ×3 (01:59→18:12)
[2017-10-09] MEDS: LEVALBUTEROL 1.25MG/0.5ML NEB INH SCH ×6 (03:32→23:26)
[2017-10-09] MEDS: IPRATROPIUM BROMIDE NEB SOLN 0.02% 2.5 ML VIAL INH SCH ×6 (03:32→23:26)
[2017-10-09] MEDS: LEVOFLOXACIN / D5W 750 MG in PREMIXED IN D5W 150 ML IV SCH (08:17)
[2017-10-09] MEDS: PAROXETINE 20 MG TAB PO SCH (08:17)
[2017-10-09] MEDS: FLUTICASONE HFA 110MCG INHALER INH SCH (08:17)
[2017-10-09] MEDS: ASPIRIN 81 MG ECTAB PO SCH (08:18)
[2017-10-09] MEDS: RANITIDINE HCL 150 MG TAB PO SCH (08:18)
[2017-10-09] MEDS: AMITRIPTYLINE HCL 50 MG TAB PO SCH (20:30)
[2017-10-09] MEDS: ENOXAPARIN 40 MG/0.4 ML SYR SC SCH (20:31)
[2017-10-10] VITALS (16 sets, daily range): BP systolic 123–151; BP diastolic 77–89; PULSE 78–101; TEMP 36.3–37.1; O2SAT 91–96
--- NOTE | 2017-10-10 01:07 | Progress Note ---
Medicine Progress Note Date & Time of Visit: Oct 10, 2017 at 01:06. Subjective delayed entry date of service 10/09/17 seen resting in bed, comfortable states dyspnea seems to be improving also has less cough no chest pain denies other symptoms Objective Last 8 Hrs Date Time Temp Pulse Resp B/P (MAP) Pulse Ox O2 Delivery O2 Flow Rate FiO2 10/09/17 23:27 95 10/09/17 23:26 96 18 95 BiPAP/CPAP 2.0 10/09/17 23:14 36.8 95 20 139/81 (100) 93 Nasal Cannula 10/09/17 23:00 BiPAP 10/09/17 19:57 36.8 94 22 134/82 (99) 95 Nasal Cannula 2.0 10/09/17 19:52 Nasal Cannula 2.0 10/09/17 19:52 93 18 96 Room Air Physical Exam: General-oriented x 3, not in distress, speaks in sentences with some effort, no acc muscle use Eyes-anicteric Neck- no JVD Lungs- slightly diminished , clear breath sounds bilaterally, no wheezies, no rales Heart- regular rhythm; no murmur, normal rate Abdomen- normal bowel sounds, soft, nontender Extremities- no pretibial edema, no calf tenderness Neuro- alert, oriented x 3; no gross focal deficits Skin- warm & dry Assessment & Plan ACUTE ASTHMA EXACERBATION BILATERAL PNEUMONIA - sputum culture: none collected so far blood cultures: negative - improving gradually still on 2 liters NC - for now continue: - Solumedrol 40m q8h Nebs q4h empiric Levaquin - wean off O2 supplement accordingly - Pulmonary consulted, appreciate the input HISTORY OF HYPERSENSITIVITY PNEUMONITIS - management as noted above GRACIE - supposed to be on CPAP DEPRESSION - continue medications DVT prophylaxis - Lovenox Full code per patient Disposition anticipate d/c home when medically stable will need 2 step on discharge day Current Inpatient Medications: Current Inpatient Medications Medications (Trade) Dose Ordered Sig/Nemo Route Start Time Stop Time Status Last Admin Dose Admin Ioversol (Optiray 320) 100 ml UD PRN IV 10/07/17 11:45 10/11/17 11:44 Methylprednisolone Sodium Succinate 40 mg/Syringe 0.64 ml @ 1.5 mls/min Q8H IV 10/07/17 18:00 11/06/17 17:59 10/09/17 18:12 1.5 MLS/MIN Levofloxacin 750 mg/Prmx 150 ml @ 100 mls/hr Q24H IV 10/08/17 08:00 10/15/17 07:59 10/09/17 08:17 100 MLS/HR Amitriptyline HCl (Elavil Tab) 50 mg HS PO 10/07/17 21:00 11/06/17 20:59 10/09/17 20:30 50 MG Aspirin (Ecotrin Tab) 81 mg DAILY PO 10/08/17 09:00 11/07/17 08:59 10/09/17 08:18 81 MG Fluticasone Propionate (Flovent Hfa 110MCG Inhaler) 2 puffs DAILY INH 10/08/17 09:00 11/07/17 08:59 10/09/17 08:17 2 PUFFS Paroxetine HCl (pAXil TAB) 40 mg DAILY PO 10/08/17 09:00 11/07/17 08:59 10/09/17 08:17 40 MG Sumatriptan Succinate (Imitrex Tab) 50 mg UD PRN PO 10/07/17 13:30 11/06/17 13:29 Ranitidine HCl (zANTac TAB) 300 mg DAILY PO 10/08/17 09:00 11/07/17 08:59 10/09/17 08:18 300 MG Acetaminophen (Tylenol Tab) 650 mg Q4H PRN PO 10/07/17 13:30 11/06/17 13:29 Ondansetron HCl (Zofran Inj) 4 mg Q6H PRN IV 10/07/17 13:30 11/06/17 13:29 Enoxaparin Sodium (Lovenox Inj) 40 mg Q24H SC 10/07/17 21:00 11/06/17 20:59 10/09/17 20:31 40 MG Ipratropium [place] (Atrovent 0.02% 0.5MG/2.5ML Neb) 0.5 mg Q4R INH 10/07/17 20:00 11/06/17 19:59 10/09/17 23:26 0.5 MG Levalbuterol (Xopenex 1.25MG/ 0.5ML Neb) 1.25 mg Q4R INH 10/07/17 20:00 11/06/17 19:59 10/09/17 23:26 1.25 MG Ipratropium [place] (Atrovent 0.02% 0.5MG/2.5ML Neb) 0.5 mg Q4H PRN INH 10/07/17 17:45 11/06/17 17:44 Levalbuterol (Xopenex 1.25MG/ 0.5ML Neb) 1.25 mg Q4H PRN INH 10/07/17 17:45 11/06/17 17:44 Menthol (Nice Ally) 1 ally PRN PRN PO 10/08/17 06:00 11/07/17 05:59
[2017-10-10] MEDS: METHYLPREDNISOLONE IV 40 MG in SYRINGE 0 ML IV SCH ×3 (02:15→17:28)
[2017-10-10] MEDS: LEVALBUTEROL 1.25MG/0.5ML NEB INH SCH ×5 (03:43→19:21)
[2017-10-10] MEDS: IPRATROPIUM BROMIDE NEB SOLN 0.02% 2.5 ML VIAL INH SCH ×5 (03:43→19:21)
[2017-10-10] MEDS: FLUTICASONE HFA 110MCG INHALER INH SCH (07:33)
[2017-10-10] MEDS: ASPIRIN 81 MG ECTAB PO SCH (07:33)
[2017-10-10] MEDS: LEVOFLOXACIN / D5W 750 MG in PREMIXED IN D5W 150 ML IV SCH (07:33)
[2017-10-10] MEDS: RANITIDINE HCL 150 MG TAB PO SCH (07:34)
[2017-10-10] MEDS: PAROXETINE 20 MG TAB PO SCH (07:34)
--- NOTE | 2017-10-10 19:46 | Progress Note ---
Medicine Progress Note Date & Time of Visit: Oct 10, 2017 at 19:42. Subjective patient seen sitting up in bed, just had dinner states he feels improved today less dyspnea less cough, no sputum denies chest pain denies other symptoms Objective Last 8 Hrs Date Time Temp Pulse Resp B/P (MAP) Pulse Ox O2 Delivery O2 Flow Rate FiO2 10/10/17 19:21 100 18 92 Room Air 10/10/17 16:15 96 Room Air 10/10/17 16:09 36.6 93 20 151/84 (106) 92 Room Air 10/10/17 14:38 92 18 96 Room Air 10/10/17 12:30 95 Room Air Physical Exam: General-oriented x 3, not in distress, speaks in sentences with some effort, no acc muscle use Eyes-anicteric Neck- no JVD Lungs- distant but clear breath sounds bilaterally, no wheezing, no rales noted Heart- regular rhythm; no murmur, normal rate Abdomen- normal bowel sounds, soft, nontender Extremities- no pretibial edema, no calf tenderness; peripheral pulses intact Neuro- alert, oriented x 3; no gross focal deficits Skin- warm & dry Assessment & Plan ACUTE ASTHMA EXACERBATION BILATERAL PNEUMONIA - sputum culture: none collected so far blood cultures: negative - off O2 by nasal cannula feels that he is improving - for now continue: - Solumedrol 40m --> q12h Nebs q4h empiric Levaquin - wean off O2 supplement accordingly - Pulmonary consulted, appreciate the input HISTORY OF HYPERSENSITIVITY PNEUMONITIS - management as noted above GRACIE - supposed to be on CPAP DEPRESSION - continue medications DVT prophylaxis - Lovenox Full code per patient Disposition anticipate d/c home tomorrow will need 2 step on discharge day Current Inpatient Medications: Current Inpatient Medications Medications (Trade) Dose Ordered Sig/Nemo Route Start Time Stop Time Status Last Admin Dose Admin Ioversol (Optiray 320) 100 ml UD PRN IV 10/07/17 11:45 10/11/17 11:44 Methylprednisolone Sodium Succinate 40 mg/Syringe 0.64 ml @ 1.5 mls/min Q8H IV 10/07/17 18:00 11/06/17 17:59 10/10/17 17:28 1.5 MLS/MIN Amitriptyline HCl (Elavil Tab) 50 mg HS PO 1/12/18 21:00 11/06/17 20:59 10/09/17 20:30 50 MG Aspirin (Ecotrin Tab) 81 mg DAILY PO 10/08/17 09:00 11/07/17 08:59 10/10/17 07:33 81 MG Fluticasone Propionate (Flovent Hfa 110MCG Inhaler) 2 puffs DAILY INH 10/08/17 09:00 11/07/17 08:59 10/10/17 07:33 2 PUFFS Paroxetine HCl (pAXil TAB) 40 mg DAILY PO 10/08/17 09:00 11/07/17 08:59 10/10/17 07:34 40 MG Sumatriptan Succinate (Imitrex Tab) 50 mg UD PRN PO 10/07/17 13:30 11/06/17 13:29 Ranitidine HCl (zANTac TAB) 300 mg DAILY PO 10/08/17 09:00 11/07/17 08:59 10/10/17 07:34 300 MG Acetaminophen (Tylenol Tab) 650 mg Q4H PRN PO 10/07/17 13:30 11/06/17 13:29 Ondansetron HCl (Zofran Inj) 4 mg Q6H PRN IV 10/07/17 13:30 11/06/17 13:29 Enoxaparin Sodium (Lovenox Inj) 40 mg Q24H SC 10/07/17 21:00 11/06/17 20:59 10/09/17 20:31 40 MG Ipratropium [place] (Atrovent 0.02% 0.5MG/2.5ML Neb) 0.5 mg Q4R INH 10/07/17 20:00 11/06/17 19:59 10/10/17 19:21 0.5 MG Levalbuterol (Xopenex 1.25MG/ 0.5ML Neb) 1.25 mg Q4R INH 10/07/17 20:00 11/06/17 19:59 10/10/17 19:21 1.25 MG Ipratropium [place] (Atrovent 0.02% 0.5MG/2.5ML Neb) 0.5 mg Q4H PRN INH 10/07/17 17:45 11/06/17 17:44 Levalbuterol (Xopenex 1.25MG/ 0.5ML Neb) 1.25 mg Q4H PRN INH 10/07/17 17:45 11/06/17 17:44 Menthol (Nice Ally) 1 ally PRN PRN PO 10/08/17 06:00 11/07/17 05:59 Levofloxacin (Levaquin Tab) 750 mg DAILY@11 PO 10/11/17 11:00 10/15/17 10:59
[2017-10-10] MEDS: AMITRIPTYLINE HCL 50 MG TAB PO SCH (20:13)
[2017-10-10] MEDS: ENOXAPARIN 40 MG/0.4 ML SYR SC SCH (20:14)
[2017-10-11] VITALS (7 sets, daily range): BP systolic 137–143; BP diastolic 84–91; PULSE 81–112; TEMP 36.3–36.8; O2SAT 92–94
[2017-10-11] MEDS ORDERED: METHYLPREDNISOLONE IV 40 MG in SYRINGE 0 ML IV SCH (06:00)
[2017-10-11] MEDS: IPRATROPIUM BROMIDE NEB SOLN 0.02% 2.5 ML VIAL INH SCH ×2 (07:20→14:23)
[2017-10-11] MEDS: LEVALBUTEROL 1.25MG/0.5ML NEB INH SCH ×2 (07:21→14:23)
[2017-10-11] MEDS: FLUTICASONE HFA 110MCG INHALER INH SCH (08:28)
[2017-10-11] MEDS: ASPIRIN 81 MG ECTAB PO SCH (08:28)
[2017-10-11] MEDS: RANITIDINE HCL 150 MG TAB PO SCH (08:29)
[2017-10-11] MEDS: PAROXETINE 20 MG TAB PO SCH (08:29)
--- NOTE | 2017-10-11 10:00 | Progress Note ---
Medicine Progress Note Date & Time of Visit: Oct 11, 2017 at 09:54. Subjective seen resting in bed, alert, not in distress, comfortable states he is feeling improved no dyspnea at rest but only with exertion cough also improving no fever/chills, chest pain no other symptoms states he is ready and would like to be discharged today Objective Last 8 Hrs Date Time Temp Pulse Resp B/P (MAP) Pulse Ox O2 Delivery O2 Flow Rate FiO2 10/11/17 07:52 36.3 83 22 137/91 (106) 92 Room Air 10/11/17 07:21 81 18 92 Room Air Physical Exam: General-oriented x 3, not in distress, speaks in sentences with some effort, no acc muscle use Neck- no JVD Lungs- clear breath sounds bilaterally, no rales/wheezes Heart- regular rhythm; no murmur, normal rate Abdomen- normal bowel sounds, soft, nontender Extremities- no pretibial edema, no calf tenderness Neuro- alert, oriented x 3; no gross focal deficits Skin- warm & dry Assessment & Plan ACUTE ASTHMA EXACERBATION BILATERAL PNEUMONIA - CT chest: IMPRESSION: 1. Less than optimal pulmonary artery opacification, but no evidence of acute pulmonary embolism 2. Bilateral subpleural reticulation 3. Progressive bilateral groundglass pulmonary opacities with upper lung zone predominance. These are likely infectious/inflammatory. - sputum culture: none collected so far blood cultures: negative - Pulmonary SVC consulted: Dr. Nelson and JAYDEN Benton - given: Levaquin 750mg IV x 5 days Solumedrol 40m q8h Nebs q4h - improved gradually discharge on: Prednisone taper starting at 60mg daily Nebs TID and PRN 2 step test performed: patient needs 2 liters O2 by NC while ambulating ff up with PCP in 3-5 days ff up with Pulmonary Dr. Barker in 1 week HISTORY OF HYPERSENSITIVITY PNEUMONITIS - management as noted above GRACIE - on CPAP DEPRESSION - continue medications DVT prophylaxis - Lovenox Full code per patient Disposition d/c home ff up with PCP in 3-5 days ff up with Pulmonary Dr. Barker in 1 week Current Inpatient Medications: Current Inpatient Medications Medications (Trade) Dose Ordered Sig/Nemo Route Start Time Stop Time Status Last Admin Dose Admin Ioversol (Optiray 320) 100 ml UD PRN IV 10/07/17 11:45 10/11/17 11:44 Amitriptyline HCl (Elavil Tab) 50 mg HS PO 10/07/17 21:00 11/06/17 20:59 10/10/17 20:13 50 MG Aspirin (Ecotrin Tab) 81 mg DAILY PO 10/08/17 09:00 11/07/17 08:59 10/11/17 08:28 81 MG Fluticasone Propionate (Flovent Hfa 110MCG Inhaler) 2 puffs DAILY INH 10/08/17 09:00 11/07/17 08:59 10/11/17 08:28 2 PUFFS Paroxetine HCl (pAXil TAB) 40 mg DAILY PO 10/08/17 09:00 11/07/17 08:59 10/11/17 08:29 40 MG Sumatriptan Succinate (Imitrex Tab) 50 mg UD PRN PO 10/07/17 13:30 11/06/17 13:29 Ranitidine HCl (zANTac TAB) 300 mg DAILY PO 10/08/17 09:00 11/07/17 08:59 10/11/17 08:29 300 MG Acetaminophen (Tylenol Tab) 650 mg Q4H PRN PO 10/07/17 13:30 11/06/17 13:29 Ondansetron HCl (Zofran Inj) 4 mg Q6H PRN IV 10/07/17 13:30 11/06/17 13:29 Enoxaparin Sodium (Lovenox Inj) 40 mg Q24H SC 10/07/17 21:00 11/06/17 20:59 Future Hold 10/10/17 20:14 40 MG Ipratropium [place] (Atrovent 0.02% 0.5MG/2.5ML Neb) 0.5 mg Q4H PRN INH 10/07/17 17:45 11/06/17 17:44 Levalbuterol (Xopenex 1.25MG/ 0.5ML Neb) 1.25 mg Q4H PRN INH 10/07/17 17:45 11/06/17 17:44 Menthol (Nice Ally) 1 ally PRN PRN PO 10/08/17 06:00 11/07/17 05:59 Levofloxacin (Levaquin Tab) 750 mg DAILY@11 PO 10/11/17 11:00 10/15/17 10:59 Methylprednisolone Sodium Succinate 40 mg/Syringe 0.64 ml @ 1.5 mls/min Q12H IV 10/11/17 06:00 11/06/17 17:59 10/11/17 05:40 1.5 MLS/MIN Ipratropium [place] (Atrovent 0.02% 0.5MG/2.5ML Neb) 0.5 mg Q6RWA INH 10/11/17 09:00 11/10/17 08:59 10/11/17 07:20 0.5 MG Levalbuterol (Xopenex 1.25MG/ 0.5ML Neb) 1.25 mg Q6RWA INH 10/11/17 09:00 11/10/17 08:59 10/11/17 07:21 1.25 MG
[2017-10-11] MEDS ORDERED: PRD10 PO (10:05)
[2017-10-11] MEDS ORDERED: IPRASOL4 INH (10:05)
--- NOTE | 2017-10-11 10:12 | Discharge Instructions ---
Discharge Instructions Date of Service Oct 11, 2017. Admission Reason for Admission: Asthma Exacerbation Discharge Discharge Diagnosis / Problem: Acute Asthma Exacerbation Discharge Goals Goal(s): Diagnostic testing, Therapeutic intervention Activity Recommendations Activity Limitations: as noted below (no heavy exertion until re-evaluated by Primary Care Physician) Lifting Limitations: until after follow-up appointment Exercise/Sports Limitations: until after follow-up appointment . Instructions / Follow-Up Instructions / Follow-Up PLEASE REVIEW YOUR NEW MEDICATION LIST AND FOLLOW INSTRUCTIONS CAREFULLY. CALL YOUR PRIMARY CARE PHYSICIAN OR RETURN TO ER IMMEDIATELY IF WITH SHORTNESS OF BREATH, INCREASING COUGH/PHLEGM, FEVER/CHILLS. TAKE PREDNISONE WITH FULL STOMACH. INCLUDE YOGURT IN YOUR DAILY DIET. FOLLOW UP WITH DR. JIMENEZ, ASSOCIATE OF DR. WOOD, ON Tuesday10/14/17 AT 11:[address] FOLLOW UP WITH DR. CASTELLANOS IN 1 WEEK. Current Hospital Diet Patient's current hospital diet: Regular Diet Discharge Diet Recommended Diet: Regular Diet Procedures Procedures Performed: CT SCAN OF THE CHEST Pending Studies Studies pending at discharge: no Medical Emergencies . Who to Call and When: Medical Emergencies: If at any time you feel your situation is an emergency, please call 911 immediately. . Non-Emergent Contact Non-Emergency issues call your: Primary Care Provider, Policy Writer Typist Call Non-Emergent contact if: you have a fever, you have any medication questions . . "Provider Documentation" section prepared by Denis Lawler. . VTE Core Measure Inpt VTE Proph given/why not?: Enoxaparin (Lovenox)SQ
--- NOTE | 2017-10-11 10:18 | Discharge Summary ---
Discharge Summary Date of Service Oct 11, 2017. Discharge Summary Admission Date: Oct 07, 2017 at 13:19 Discharge Date: Oct 11, 2017 Discharge Disposition: Home Principal Diagnosis: ACUTE ASTHMA EXACERBATION BILATERAL PNEUMONIA Secondary Diagnoses/Problems: Please refer to hospital course below. Procedures: CT ANGIOGRAM OF THE CHEST CLINICAL HISTORY: Shortness of breath. Possible pulmonary embolus. COMPARISON STUDY: 05/02/2017 TECHNIQUE: Following the IV administration of 92 mL of Optiray-320, CT angiogram of the thorax was performed from the thoracic inlet to the lung bases utilizing the pulmonary embolus protocol. Images are reviewed in the axial, sagittal, and coronal planes. IV contrast was administered without complication. MIP imaging was performed. A dose lowering technique was utilized adhering to the principles of ALARA. CT DOSE: 421.23 mGy.cm FINDINGS: There is no pathologic mediastinal lymphadenopathy. Enlarged calcified right hilar lymph nodes remain stable and are likely postinflammatory. There is no pathologic axillary lymphadenopathy. There was no evidence of thoracic aortic dilatation. Pulmonary nodule opacification is somewhat less than optimal. There are no definite pulmonary artery filling defects to indicate acute pulmonary embolism. No pleural effusions are visualized. There are progressive bilateral groundglass pulmonary airspace opacities, likely infectious/inflammatory. There is mild subpleural reticulation. There is mild hepatic steatosis. There is a marked scoliosis. IMPRESSION: 1. Less than optimal pulmonary artery opacification, but no evidence of acute pulmonary embolism 2. Bilateral subpleural reticulation 3. Progressive bilateral groundglass pulmonary opacities with upper lung zone predominance. These are likely infectious/inflammatory. Electronically signed by: Isma London M.D. 10/07/2017 12:42 PM Consultations: Pulmonary Dr. Nelson/PA Nate Benton Pending Studies/Follow-Up: Please refer to hospital course below. Medication Reconciliation New Medications: Prednisone (Prednisone) 10 Mg Tab 1 TAB PO UD, #31 TAB 0 Refills take 6 tabs po daily x 3 days, then take 4 tabs po daiy x 3 days, then take 3 tabs po daily x 3 days, then take 2 tabs po daily x 3 days, then take 1 tab po daily x 3 days, then take 1/2 tab po daily x 2 days, then STOP Changed Medications: Ipratropium-Albuterol (Duoneb) 3 Ml Nebu 1 TREATMENT INH TID for 7 Days (Changed from: Q4H; Removed Reason) may also use every 4 hours as needed for shortness of breath Continued Medications: Amitriptyline Hcl (Amitriptyline Hcl) 50 Mg Tab 50 MG PO HS, TAB Aspirin (Aspirin Ec) 81 Mg Tab 81 MG PO DAILY Fish Oil ([place]-3) 1 Ea Cap 2 CAP PO DAILY Fluticasone Propionate (Flovent Hfa) 120 Puffs/81047 Mcg Aero 2 PUFFS INH DAILY for 30 Days, #1 INHALER 2 Refills Paroxetine Hcl (Paxil) 40 Mg Tab 40 MG PO DAILY, TAB Ranitidine Hcl (Ranitidine Hcl) Unknown Strength Cap 2 TAB PO DAILY Sumatriptan Succinate (Imitrex) 50 Mg Tab 50 MG PO PRN, TAB Discontinued Medications: Albuterol Sulfate (Proventil Hfa) 108 Mcg/Act Aer 2 PUFFS INH QID Admission Information HPI (per Admitting provider): 52 male with history of Hypersensitivity Pneumonitis, Moderate Asthma, GRACIE, Depression/GERD, Migraine, presenting with shortness of breath. Patient reports having a few day history of cough, shortness of breath, some sputum production and chills. Was seen by PCP 2 days ago, thought to have allergic rhinitis. No improvement of symptoms since. Presented to the ER, placed on Bipap. CT chest showing increased bilateral groundglass opacities Given Solumedrol, Nebs, Levaquin. On exam, patient on Bipap, comfortable, not in distress, speaks in sentences with no effort. States he feels slightly better, improved with Bipap. Denies other symptoms. Physical Exam (per Admitting): General Appearance: WD/WN, no apparent distress Head: normocephalic, atraumatic Eyes: normal inspection, PERRL, EOMI, sclerae normal ENT: normal ENT inspection, TMs normal, pharynx normal Neck: supple, no adenopathy, thyroid normal, no JVD, trachea midline Respiratory/Chest: chest non-tender, no respiratory distress, no accessory muscle use, + rhonchi (occasional, bilateral) Cardiovascular: regular rate, rhythm, no edema, no gallop, no JVD, no murmur Abdomen/GI: normal bowel sounds, non tender, soft Back: normal inspection, no CVA tenderness Extremities/Musculoskelatal: normal inspection, no calf tenderness, normal capillary refill, no pedal edema Neurologic/Psych: personal banker II-XII nml as tested, no motor/sensory deficits, alert , normal mood/affect, normal reflexes, oriented x 3 Skin: normal color, warm/dry, no rash Lymphatic: no adenopathy Hospital Course ACUTE ASTHMA EXACERBATION BILATERAL PNEUMONIA - CT chest: IMPRESSION: 1. Less than optimal pulmonary artery opacification, but no evidence of acute pulmonary embolism 2. Bilateral subpleural reticulation 3. Progressive bilateral groundglass pulmonary opacities with upper lung zone predominance. These are likely infectious/inflammatory. - sputum culture: none collected so far blood cultures: negative - Pulmonary SVC consulted: Dr. Nelson and JAYDEN Benton - given: Levaquin 750mg IV x 5 days Solumedrol 40m q8h Nebs q4h - improved gradually discharge on: slow Prednisone taper starting at 60mg daily Nebs TID and PRN 2 step test performed: patient needs 2 liters O2 by NC while ambulating ff up with PCP in 3-5 days ff up with Pulmonary Dr. Castellanos in 1 week HISTORY OF HYPERSENSITIVITY PNEUMONITIS - management as noted above GRACIE - on CPAP DEPRESSION - continue medications Disposition d/c home ff up with PCP in 3-5 days ff up with Pulmonary Dr. Castellanos in 1 week Total time spent on discharge = 30 minutes This includes examination of the patient, discharge planning, medication reconciliation, and communication with other providers. Discharge Instructions Discharge Instructions Date of Service Oct 11, 2017. Admission Reason for Admission: Asthma Exacerbation Discharge Discharge Diagnosis / Problem: Acute Asthma Exacerbation Discharge Goals Goal(s): Diagnostic testing, Therapeutic intervention Activity Recommendations Activity Limitations: as noted below (no heavy exertion until re-evaluated by Primary Care Physician) Lifting Limitations: until after follow-up appointment Exercise/Sports Limitations: until after follow-up appointment . Instructions / Follow-Up Instructions / Follow-Up PLEASE REVIEW YOUR NEW MEDICATION LIST AND FOLLOW INSTRUCTIONS CAREFULLY. CALL YOUR PRIMARY CARE PHYSICIAN OR RETURN TO ER IMMEDIATELY IF WITH SHORTNESS OF BREATH, INCREASING COUGH/PHLEGM, FEVER/CHILLS. TAKE PREDNISONE WITH FULL STOMACH. INCLUDE YOGURT IN YOUR DAILY DIET. FOLLOW UP WITH DR. JIMENEZ, ASSOCIATE OF DR. WOOD, ON Tuesday10/14/17 AT 11:[address] AM. FOLLOW UP WITH DR. CASTELLANOS IN 1 WEEK. Current Hospital Diet Patient's current hospital diet: Regular Diet Discharge Diet Recommended Diet: Regular Diet Procedures Procedures Performed: CT SCAN OF THE CHEST Pending Studies Studies pending at discharge: no Medical Emergencies . Who to Call and When: Medical Emergencies: If at any time you feel your situation is an emergency, please call 911 immediately. . Non-Emergent Contact Non-Emergency issues call your: Primary Care Provider, Agriculture Teacher Call Non-Emergent contact if: you have a fever, you have any medication questions . . "Provider Documentation" section prepared by Denis Lawler. . VTE Core Measure Inpt VTE Proph given/why not?: Enoxaparin (Lovenox)SQ
[2017-10-11] MEDS ORDERED: LEVOFLOXACIN 750 MG TAB PO SCH (11:00)
== END 2017-10-11 15:21 | disposition home or self-care (01) | DRG 194 ==
LOC: C.EDB 10:34 → C.2T 13:19 → ENRESERV 14:39 → C.MS2W 10-10 20:05
PROVIDERS: ADMIT Internal Medicine; ATTEND Internal Medicine
DX: J18.9 Pneumonia, unspecified organism (principal); J45.901 Unspecified asthma with (acute) exacerbation; R09.02 Hypoxemia; F32.9 Major depressive disorder, single episode, unspecified; E78.5 Hyperlipidemia, unspecified; K21.9 Gastro-esophageal reflux disease without esophagitis; G47.33 Obstructive sleep apnea (adult) (pediatric); Z51.81 Encounter for therapeutic drug level monitoring; Z79.899 Other long term (current) drug therapy; Z79.82 Long term (current) use of aspirin; Z87.09 Personal history of other diseases of the respiratory system; Z87.442 Personal history of urinary calculi; Z87.891 Personal history of nicotine dependence; Z83.3 Family history of diabetes mellitus; Z80.1 Family history of malignant neoplasm of trachea, bronchus and lung; Z82.49 Family history of ischemic heart disease and other diseases of the circulatory system; Z82.3 Family history of stroke; Z83.79 Family history of other diseases of the digestive system

== ENCOUNTER 2017-12-01 10:19 | Observation (INO) | payer OTHER ==
[~2017-12-01] VITALS: Ht 175.3 cm; Wt 97.2 kg
[~2017-12-01 10:19] MED LIST changes: -ALBUAER INH; -ASPI325T4 PO; +ASPI81TA28 PO; +IPRASOL4 INH; +PRD10 PO; -PRVC/40 PO
[2017-12-01] MEDS ORDERED: ASPIRIN 81 MG CHEW PO STA (10:38)
[2017-12-01] MEDS ORDERED: GABA-112 PO (10:51)
[2017-12-01] MEDS ORDERED: PRED10TA PO ×2 (10:51→14:31)
--- NOTE | 2017-12-01 10:52 | EMERGENCY ROOM VISIT NOTE ---
History Report prepared by Romero: Jamil Archibald Under the Supervision of: Dr. Amanuel Montalvo M.D. First contact with patient: 10:28 Chief Complaint: CARDIAC ASSESSMENT Stated Complaint: ABNORMAL EKG, SHORTNESS OF BREATH History of Present Illness The patient is a 52 year old male who presents to the Emergency Room with complaints of intermittent shortness of breath over the past couple of days. The patient is here with his , earlier this morning he went with his for a PCP appointment for her and while he was at her PCP he told them he was having some mild shortness of breath, so they did an EKG which showed ST segment changes so they were referred to the emergency department. The patient states that he has had a productive cough, and he is not coughing up any blood. He denies any chest pain, fever, recent travel, recent long plane or car ride, history of blood clots in his legs or lungs, nausea, vomiting, diarrhea, bloody stools, black or tarry stools. The patient is currently on oxygen for a pneumonitis. The patient also has a history of asthma, GERD, high cholesterol, anxiety, depression, and kidney stones. He states that he does not take any blood thinners, and he states that he is not currently anxious or depressed. Source of History: patient Onset: a couple days ago Position: other (global) Quality: other (shortness of breath) Timing: intermittent Associated Symptoms: + cough, No fevers, No headache, No chest pain, No nausea, No vomiting, No diarrhea Review of Systems See HPI for pertinent positives and negatives. A total of ten systems were reviewed and were otherwise negative. Past Medical & Surgical Medical Problems: (1) Acute electrocardiogram changes (2) Asthma (3) Asthma exacerbation (4) Asthma, mild persistent (5) Calculus of kidney and ureter (6) Chronic back pain (7) Depression (8) Depression (9) Dyslipidemia (10) Dyslipidemia (11) Gastroesophageal reflux disease (12) GERD (gastroesophageal reflux disease) (13) Hypoxia (14) Influenza-like syndrome (15) Kidney stone (16) Left ureteral calculus (17) Migraine (18) Migraine (19) GRACIE (obstructive sleep apnea) (20) Pancreatitis (21) Pancreatitis (22) Scoliosis (23) Sleep disorder Surgical Problems: (1) H/O colonoscopy (2) History of back surgery (3) S/p fragment kidney stone by shock wave (4) S/P nasal surgery (5) S/P tonsillectomy (6) S/p ureteral stent placement (7) spinal surgery due to scoliosis Family History Diabetes mellitus FATHER FH: cancer BROTHER (lung CA) FH: heart disease FATHER (fatal SD/stroke age 79) BROTHER (SD in early 50s) FH: kidney disease FHx: gallstones Hypertension Stroke FATHER Social History Smoking Status: Former Smoker Alcohol Use: none Drug Use: none Marital Status: Housing Status: lives with significant other Occupation Status: employed Current/Historical Medications Scheduled Amitriptyline Hcl (Amitriptyline Hcl), 1.5 TAB PO HS Aspirin (Aspirin Ec), 81 MG PO DAILY Fish Oil ([place]-3), 2 CAP PO DAILY Gabapentin (Neurontin), 100 MG PO TID Ipratropium-Albuterol (Combivent Respimat), 1 PUFFS INH QID Levalbuterol (Levalbuterol), 1.25 MG INH Q4H Levofloxacin (Levaquin), 1 TAB PO DAILY Mometasone Furoate-Formoterol (Dulera 200/5 Mcg), 2 PUFFS INH BID Paroxetine Hcl (Paxil), 40 MG PO DAILY Pravastatin Sod (Pravastatin Sodium), 1 TAB PO HS Prednisone (Prednisone), 50 MG PO DAILY Prednisone Tab (Prednisone), 10 MG PO TID Ranitidine HCl (Ranitidine HCl), 1 TAB PO BID Scheduled PRN Sumatriptan Succinate (Imitrex), 50 MG PO PRN PRN for Migraine Allergies Coded Allergies: No Known Allergies (Unverified , 12/01/17) Physical Exam Vital Signs Date Time Temp Pulse Resp B/P (MAP) Pulse Ox O2 Delivery O2 Flow Rate FiO2 12/01/17 13:04 100 18 147/96 98 Nasal Cannula 2.0 12/01/17 12:10 99 18 131/96 96 Room Air 2.0 12/01/17 10:49 97 Nasal Cannula 2.0 12/01/17 10:38 Room Air 12/01/17 10:37 104 12/01/17 10:22 37.0 110 18 135/88 96 Nasal Cannula 2.0 Physical Exam Physical Exam GENERAL: He is oriented to person, place, and time. He appears well-developed and well-nourished. He does not appear distressed. ____ HENT: Exam performed. Head: Normocephalic and atraumatic. Right Ear: External ear normal. No mastoid tenderness. Left Ear: External ear normal. No mastoid tenderness. Mouth/Throat: The oropharynx is clear and moist. No trismus in the jaw. No dental abscesses or uvula swelling. No oropharyngeal exudate or tonsillar abscesses. ____ EYES: Conjunctivae and EOM are normal. Pupils are equal, round, and reactive to light. Right eye exhibits no discharge. Left eye exhibits no discharge. No scleral icterus. ____ NECK: Normal range of motion. Neck supple. No JVD present. No spinous process tenderness present. No carotid bruit present. No rigidity. No tracheal deviation and normal range of motion present. No Brudzinski's sign and no Kernig 's sign noted. ____ CV: Normal rate, regular rhythm, normal heart sounds and intact distal pulses. There is no peripheral edema. Palpable radial pulses bue. ____ PULM/CHEST: Effort normal and breath sounds normal. No respiratory distress. No stridor. He has no wheezes. He has no rales. Chest Wall: He exhibits no tenderness. ____ ABD: The abdomen is soft. Bowel sounds are normal. He has no distension. No mass is present. There is no tenderness. There is no rebound, no guarding, no Akins's sign and no tenderness at McBurney's point. Rovsig negative MUSC/SKEL: Normal range of motion. There is no peripheral edema, tenderness or deformity. LYMPH: No cervical adenopathy. ____ NEURO: He is alert and oriented to person, place, and time. He has normal strength. No cranial nerve deficit or sensory deficit. Coordination and gait normal. GCS eye subscore is 4. GCS verbal subscore is 5. GCS motor subscore is 6. Cerebellar tests wnl. ____ SKIN: Skin is warm and dry. He is not diaphoretic. ____ PSYCH: He has a normal mood and affect. His behavior is normal. Judgment and thought content normal. ____ Medical Decision & Procedures ER Provider Diagnostic Interpretation: Radiology results as stated below per my review and radiologist interpretation: CHEST 2 VIEWS ROUTINE CLINICAL HISTORY: cough sob COMPARISON STUDY: 10/07/2017 FINDINGS: There is a prominent thoracolumbar scoliosis. The heart is borderline enlarged. There is no failure. There is no focal pulmonary consolidation. There are no pleural effusions. 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 Multiple chronic rib deformities are evident.[ IMPRESSION: 1. Severe scoliosis and multiple rib deformities 2. Chronic interstitial thickening. No evidence of acute parenchymal consolidation Electronically signed by: Isma London M.D. 12/01/2017 11:28 AM Dictated Date/Time: 12/01/2017 11:26 AM Laboratory Results 12/01/17 10:45 Red Blood Count 4.78, Mean Corpuscular Volume 91.2, Mean Corpuscular Hemoglobin 30.1, Mean Corpuscular Hemoglobin Concent 33.0, Mean Platelet Volume 9.5, Neutrophils (%) (Auto) 75.2, Lymphocytes (%) (Auto) 14.8, Monocytes (%) (Auto) 6.1, Eosinophils (%) (Auto) 0.0, Basophils (%) (Auto) 0.1, Neutrophils # (Auto) 8.67, Lymphocytes # (Auto) 1.71, Monocytes # (Auto) 0.70, Eosinophils # (Auto) 0.00, Basophils # (Auto) 0.01 12/01/17 10:45 Test 12/01/17 10:45 12/01/17 10:47 12/01/17 11:02 White Blood Count 11.53 K/uL (4.8-10.8) Red Blood Count 4.78 M/uL (4.7-6.1) Hemoglobin 14.4 g/dL (14.0-18.0) Hematocrit 43.6 % (42-52) Mean Corpuscular Volume 91.2 fL (80-100) Mean Corpuscular Hemoglobin 30.1 pg (25-34) Mean Corpuscular Hemoglobin Concent 33.0 g/dl (32-36) Platelet Count 129 K/uL (130-400) Mean Platelet Volume 9.5 fL (7.4-10.4) Neutrophils (%) (Auto) 75.2 % Lymphocytes (%) (Auto) 14.8 % Monocytes (%) (Auto) 6.1 % Eosinophils (%) (Auto) 0.0 % Basophils (%) (Auto) 0.1 % Neutrophils # (Auto) 8.67 K/uL (1.4-6.5) Lymphocytes # (Auto) 1.71 K/uL (1.2-3.4) Monocytes # (Auto) 0.70 K/uL (0.11-0.59) Eosinophils # (Auto) 0.00 K/uL (0-0.5) Basophils # (Auto) 0.01 K/uL (0-0.2) RDW Standard Deviation 47.2 fL (36.4-46.3) RDW Coefficient of Variation 14.1 % (11.5-14.5) Immature Granulocyte % (Auto) 3.8 % Immature Granulocyte # (Auto) 0.44 K/uL (0.00-0.02) Erythrocyte Sedimentation Rate 5 mm/hr (0-14) Prothrombin Time 9.8 SECONDS (9.0-12.0) Prothromb Time International Ratio 0.9 (0.9-1.1) Activated Partial Thromboplast Time 22.1 SECONDS (21.0-31.0) Partial Thromboplastin Ratio 0.9 D-Dimer 190 ug/L FEU (0-500) Anion Gap 7.0 mmol/L (3-11) Est Creatinine Clear Calc Drug Dose 98.7 ml/min Estimated GFR () 99.2 Estimated GFR (Non- 85.5 BUN/Creatinine Ratio 17.0 (10-20) Calcium Level 8.8 mg/dl (8.5-10.1) C-Reactive Protein < 0.29 mg/dl (0-0.29) Procalcitonin < 0.05 ng/ml (0-0.5) Thyroid Stimulating Hormone (TSH) 0.494 uIu/ml (0.300-4.500) Bedside Troponin I < 0.030 ng/ml (0-0.045) Influenza Type A Antigen Neg for Influ A (NEG) Influenza Type B Antigen Neg for Influ B (NEG) Laboratory results reviewed by me Medications Administered Medications (Trade) Dose Ordered Sig/Nemo Route Start Time Stop Time Status Last Admin Dose Admin Aspirin (Aspirin Chew) 324 mg NOW STAT PO 12/01/17 10:38 12/01/17 10:41 DC 12/01/17 10:53 324 MG Ibuprofen (Motrin Tab) 600 mg NOW STAT PO 12/01/17 12:40 12/01/17 12:42 DC 12/01/17 13:03 600 MG ECG Per My Interpretation Indication: SOB/dyspnea, other (abnormal EKG) Rate (beats per minute): 105 Rhythm: sinus tachycardia Findings: other (UT, QRS, and QTc intervals within normal limits. UT depression and concave ST elevation in Lead 1,2, and V3-V6) Change: Repeat EKG showed: Tachycardia at 105 bpm. UT, QRS, and QTc intervals within normal limits. UT depression and concave ST elevation in Lead 1,2, and V3-V6. ED Course 1028: The patient was evaluated in room A11. A complete history and physical exam was performed. EKG Done at the outpatient office was brought with him. It showed sinus tachycardia at 102 bpm. UT, QRS, and QTc intervals within normal limits. UT depression and concave ST elevation in Lead 1,2, and V3-V6. Repeat EKG done here showed tachycardia at 105 bpm. UT, QRS, and QTc intervals within normal limits. UT depression and concave ST elevation in Lead 1,2, and V3-V6. EKG is concerning for pericarditis. Immediate point of care cardiac ultrasound showed small pericardial effusion. No pericardial tamponade. 1038: Aspirin 324mg PO 1046: Repeat EKG done here showed tachycardia at 104 bpm. UT, QRS, and QTc intervals within normal limits. UT depression and concave ST elevation in Lead 1 ,2, and V3-V6. Machine interpretation states STEMI, however the EKG looks more concerning to me for pericarditis than STEMI. 1049: I discussed the patient's case with Dr. Glynn - Cardiology. I discussed the EKG, and he agrees that there is no STEMI, and no cath alert needs to be called. He states the patient should be admitted. 1053: I reevaluated the patient, and he is resting comfortably. he does not have any chest pain or difficulty breathing. 1211: Discussed the patient's case with Haley Abdullahi PA-C - [facility] Hospitalist. The patient will be evaluated for further treatment and disposition. 1237: The patient's troponin and D-Dimer were negative, and he is resting comfortably and sleeping. He has no chest pain or shortness of breath. He is going to be evaluated by the [facility]ist. 1240: Ibuprofen 600mg PO for possible pericarditis. Medical Decision 1028: The patient was evaluated in room A11. A complete history and physical exam was performed. EKG Done at the outpatient office was brought with him. It showed sinus tachycardia at 102 bpm. UT, QRS, and QTc intervals within normal limits. UT depression and concave ST elevation in Lead 1,2, and V3-V6. Repeat EKG done here showed tachycardia at 105 bpm. UT, QRS, and QTc intervals within normal limits. UT depression and concave ST elevation in Lead 1,2, and V3-V6. EKG is concerning for pericarditis. Immediate point of care cardiac ultrasound showed small pericardial effusion. No pericardial tamponade. 1038: Aspirin 324mg PO 1046: Repeat EKG done here showed tachycardia at 104 bpm. UT, QRS, and QTc intervals within normal limits. UT depression and concave ST elevation in Lead 1 ,2, and V3-V6. Machine interpretation states STEMI, however the EKG looks more concerning to me for pericarditis than STEMI. 1049: I discussed the patient's case with Dr. Renard Patricio. I discussed the EKG, and he agrees that there is no STEMI, and no cath alert needs to be called. He states the patient should be admitted. 1053: I reevaluated the patient, and he is resting comfortably. he does not have any chest pain or difficulty breathing. 1211: Discussed the patient's case with Haley Abdullahi PA-C - [facility]ist. The patient will be evaluated for further treatment and disposition. 1237: The patient's troponin and D-Dimer were negative, and he is resting comfortably and sleeping. He has no chest pain or shortness of breath. He is going to be evaluated by the [facility]ist. 1240: Ibuprofen 600mg PO for possible pericarditis. Medication Reconcilliation Current Medication List: was personally reviewed by me Blood Pressure Screening Patient's blood pressure: Elevated blood pressure Monitored by the hospitalist. Consults Time Called: 1046 Consulting Physician: Dr. Renard Patricio Returned Call: 1049 I discussed the patient's case with Dr. Renard Patricio. I discussed the EKG , and he agrees that there is no STEMI, and no cath alert needs to be called, and the patient should be admitted. Additional Consults: Time Called: 1201 Consulted Physician: [facility] Hospitalist Returned Call: 1211 Additional Comments: Discussed the patient's case with [facility] Hospitalist. The patient will be evaluated for further treatment and disposition. Impression Primary Impression: Pericarditis Additional Impression: Chest pain, unspecified Scribe Attestation The scribe's documentation has been prepared under my direction and personally reviewed by me in its entirety. I confirm that the note above accurately reflects all work, treatment, procedures, and medical decision making performed by me. The chart was completed utilizing [employer] Speech voice recognition software. Grammatical errors, random word insertions, pronoun errors, and incomplete sentences are an occasional consequence of this system due to software limitations, ambient noise, and hardware issues. Any formal questions or concerns about the content, text, or information contained within the body of this dictation should be directly addressed to the physician for clarification. Departure Information Dispostion Being Evaluated By Hospitalist Referrals Brina Sweeney M.D. (MEDICAL) (PCP) Patient Instructions My [facility] Problem Qualifiers
[2017-12-01 11:04] LABS: BASO % 0.1 %; BASO ABS # 0.01 K/uL (0-0.2); HEMATOCRIT 43.6 % (42-52); HEMOGLOBIN 14.4 g/dL (14.0-18.0); IG# 0.44 K/uL (0.00-0.02); LYMPH % 14.8 %; LYMPH ABS # 1.71 K/uL (1.2-3.4); MEAN CELL VOLUME 91.2 fL (80-100); MEAN CORPUSCULAR HEMOGLOBIN 30.1 pg (25-34); MEAN PLATELET VOLUME 9.5 fL (7.4-10.4); MONO % 6.1 %; NEUT % 75.2 %; NEUT ABS # 8.67 K/uL (1.4-6.5); PLATELET COUNT 129 K/uL (130-400); RED CELL DISTRIBUTION WIDTH CV 14.1 % (11.5-14.5); RED CELL DISTRIBUTION WIDTH SD 47.2 fL (36.4-46.3); WHITE BLOOD COUNT 11.53 K/uL (4.8-10.8)
[2017-12-01 11:22] LABS: BLOOD UREA NITROGEN 17 mg/dl (7-18); GLUCOSE 220 mg/dl (70-99); INR 0.9 (0.9-1.1); PTT PATIENT 22.1 SECONDS (21.0-31.0)
[2017-12-01 11:23] LABS: CALCIUM 8.8 mg/dl (8.5-10.1); CARBON DIOXIDE 27 mmol/L (21-32); POTASSIUM 4.1 mmol/L (3.5-5.1); SODIUM 141 mmol/L (136-145)
--- NOTE | 2017-12-01 11:29 | DIAGNOSTIC IMAGING REPORT ---
CHEST 2 VIEWS ROUTINE CLINICAL HISTORY: cough sob COMPARISON STUDY: 10/07/2017 FINDINGS: There is a prominent thoracolumbar scoliosis. The heart is borderline enlarged. There is no failure. There is no focal pulmonary consolidation. There are no pleural effusions. 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 Multiple chronic rib deformities are evident.[ IMPRESSION: 1. Severe scoliosis and multiple rib deformities 2. Chronic interstitial thickening. No evidence of acute parenchymal consolidation Electronically signed by: Isma London M.D. 12/01/2017 11:28 AM Dictated Date/Time: 12/01/2017 11:26 AM
[2017-12-01 11:30] LABS: INFLUENZA B ANTIGEN Neg for Influ B (NEG)
[2017-12-01] MEDS ORDERED: IBUPROFEN 600 MG TAB PO STA (12:40)
[2017-12-01] MEDS ORDERED: ACETAMINOPHEN 325 MG TAB PO PRN (13:30)
[2017-12-01] MEDS ORDERED: NITROGLYCERIN 0.4 MG SL PER TAB CHARGE SL PRN (13:30)
[2017-12-01] MEDS ORDERED: ONDANSETRON INJ 2 MG/ML 2 ML VIAL IV PRN (13:30)
[2017-12-01 13:43] VITALS: O2SAT 98; Ht 175.3 cm; Wt 97.2 kg
[2017-12-01] MEDS ORDERED: IV FLUIDS COMPLETED PRN (14:30)
[2017-12-01] MEDS ORDERED: ZNT/300 PO (14:31)
[2017-12-01] MEDS ORDERED: PRED50TA PO (14:31)
[2017-12-01] MEDS ORDERED: PRVC/40 PO (14:31)
[2017-12-01] MEDS ORDERED: XPNINS1255 INH (14:31)
[2017-12-01] MEDS ORDERED: IPRA1AER2 INH (14:31)
[2017-12-01] MEDS ORDERED: MOME200A INH (14:34)
[2017-12-01] MEDS ORDERED: LEVO-459 PO (14:43)
[2017-12-01] MEDS ORDERED: SUMATRIPTAN SUCCINATE 50 MG TAB PO PRN (14:45)
[2017-12-01] MEDS ORDERED: LEVALBUTEROL 1.25MG/0.5ML NEB INH PRN (14:45)
[2017-12-01] MEDS ORDERED: GLUCOSE 10 TABS/TUBE PO PRN (15:00)
[2017-12-01] MEDS ORDERED: GLUCAGON FOR INJ 1 MG VIAL SQ PRN (15:00)
[2017-12-01] MEDS ORDERED: DEXTROSE 50% 50 ML SYR IV PRN (15:00)
[2017-12-01] MEDS ORDERED: GLUCOSE 40% GEL 15 GM TUBE PO PRN (15:00)
--- NOTE | 2017-12-01 15:22 | History and Physical ---
History & Physical Date & Time of Service: Dec 01, 2017 at 13:45 Chief Complaint: Abnormal Ekg, Shortness Of Breath Primary Care Physician: Brina Sweeney M.D. (MEDICAL) History of Present Illness Source: patient, clinic records, hospital records Pt is 52 y/o M with PMH hypersensitivity pneumonitis, asthma, GRACIE, depression, migraine headache, GERD who presented to ER from outpatient office for EKG changes. Patient reports this morning that his told him that he did not look good and his skin color appeared wilson. Patient denies any worsening shortness of breath from baseline, chest pain, diaphoresis, nausea, vomiting, headache. Patient does report started with cough approximately 1 week ago. Cough is nonproductive. 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 Last dose is tomorrow. Reports cough still present but doesn't believe it is worse. Patient is currently on prednisone for hypersensitivity pneumonitis he is on 50 mg in the morning, 10 mg 3 times daily. He is to be on this for 2 months and then considering taper in 3-5 months if symptoms are stable or improved. Patient reports uses oxygen at 2 L nasal cannula during the day with exertion. He reports baseline oxygen saturations on room air with exertion are around 88% and in the mid 90s with sitting. Uses Combivent inhaler QID. Patient denies any cardiac history. Denies any history of stress test or cardiac catheterization in the past. History of echo 02/09 - EF: 65-70%. Patient was hospitalized 10/07/17 10/11/17 for asthma exacerbation and pneumonia and was treated with Levaquin, Solu-Medrol, and nebs. Denies fever/chills, diaphoresis, N/V/D/C, BURNHAM, dizziness, syncope, vision changes, neck pain, CP,orthopnea, palpitations, hemoptysis, sore throat, choking, otalgia, rhinorrhea, abdominal pain, paresthesias, weakness, extremity edema, rashes, urinary symptoms. Here in the ER EKG was obtained noticed have sinus tachycardia at [address] ST elevations were noted in leads II, V3-V6. Dr. Glynn benchroom shop optician was consulted, suspected pericarditis and not acute IN. Negative initial troponin. Negative d-dimer. CXR: No consolidation, chronic interstitial thickening. Negative influenza Ag. WBC: 11.5. Glucose: 220. Patient afebrile pulse 99-110. Respirations: 18. BP: 131/96. 96% on 2 L NC. Patient denying any current chest pain or shortness of breath. Pt given ASA and ibuprofen. Past Medical/Surgical History Medical Problems: (1) Asthma Status: Chronic (2) Asthma exacerbation Status: Resolved (3) Asthma, mild persistent Status: Chronic (4) Calculus of kidney and ureter Status: Resolved (5) Chronic back pain Status: Chronic (6) Depression Status: Chronic (7) Depression Status: Chronic (8) Dyslipidemia Status: Chronic (9) Dyslipidemia Status: Chronic (10) Gastroesophageal reflux disease Status: Chronic (11) GERD (gastroesophageal reflux disease) Status: Chronic (12) Hypoxia Status: Chronic (13) Influenza-like syndrome Status: Resolved (14) Kidney stone Status: Resolved (15) Left ureteral calculus Status: Resolved (16) Migraine Status: Chronic (17) Migraine Status: Chronic (18) GRACIE (obstructive sleep apnea) Status: Chronic (19) Pancreatitis Status: Resolved (20) Pancreatitis Status: Resolved (21) Scoliosis Status: Chronic (22) Sleep disorder Status: Chronic Surgical Problems: (1) H/O colonoscopy Status: Chronic (2) History of back surgery Status: Chronic (3) S/p fragment kidney stone by shock wave Status: Chronic (4) S/P nasal surgery Status: Chronic (5) S/P tonsillectomy Status: Chronic (6) S/p ureteral stent placement Status: Chronic (7) spinal surgery due to scoliosis Status: Resolved Family History Diabetes mellitus FATHER FH: cancer BROTHER (lung CA) FH: heart disease FATHER (fatal [place]/stroke age 79) BROTHER (IN in early 50s) FH: kidney disease FHx: gallstones Hypertension Stroke FATHER Social History Smoking Status: Former Smoker Alcohol Use: occasionally Drug Use: none Marital Status: Housing status: lives with family Occupational Status: employed Immunizations History of Influenza Vaccine: Yes Influenza Vaccine Date: Aug 13, 2012 History of Tetanus Vaccine?: Yes History of Pneumococcal: Yes Pneumococcal Date: Jul 16, 2010 History of Hepatitis B Vaccine: Yes Allergies Coded Allergies: No Known Allergies (Unverified , 12/01/17) Home Medications Scheduled Amitriptyline Hcl (Amitriptyline Hcl), 1.5 TAB PO HS Aspirin (Aspirin Ec), 81 MG PO DAILY Fish Oil (Altair-3), 2 CAP PO DAILY Gabapentin (Neurontin), 100 MG PO TID Ipratropium-Albuterol (Combivent Respimat), 1 PUFFS INH QID Levalbuterol (Levalbuterol), 1.25 MG INH Q4H Levofloxacin (Levaquin), 1 TAB PO DAILY Mometasone Furoate-Formoterol (Dulera 200/5 Mcg), 2 PUFFS INH BID Paroxetine Hcl (Paxil), 40 MG PO DAILY Pravastatin Sod (Pravastatin Sodium), 1 TAB PO HS Prednisone (Prednisone), 50 MG PO DAILY Prednisone Tab (Prednisone), 10 MG PO TID Ranitidine HCl (Ranitidine HCl), 1 TAB PO BID Scheduled PRN Sumatriptan Succinate (Imitrex), 50 MG PO PRN PRN for Migraine Review of Systems See HPI for pertinent positives & negatives. All other systems reviewed and were otherwise negative Physical Exam Vital Signs Date Time Temp Pulse Resp B/P (MAP) Pulse Ox O2 Delivery O2 Flow Rate FiO2 12/01/17 13:04 100 18 147/96 98 Nasal Cannula 2.0 12/01/17 12:10 99 18 131/96 96 Room Air 2.0 12/01/17 10:49 97 Nasal Cannula 2.0 12/01/17 10:38 Room Air 12/01/17 10:37 104 12/01/17 10:22 37.0 110 18 135/88 96 Nasal Cannula 2.0 General Appearance: WD/WN, no apparent distress Head: normocephalic, atraumatic Eyes: normal inspection, PERRL, EOMI, sclerae normal ENT: hearing grossly normal, + pertinent finding (moist mucous membranes) Neck: supple, no JVD, trachea midline Respiratory/Chest: no respiratory distress, no accessory muscle use, + decreased breath sounds (throughout) Cardiovascular: no murmur, + tachycardia (104) Abdomen/GI: normal bowel sounds, non tender, soft Extremities/Musculoskelatal: normal capillary refill, no pedal edema, normal range of motion, non-tender Neurologic/Psych: alert, normal mood/affect, oriented x 3 Skin: normal color, warm/dry Diagnostics Laboratory Results Results Past 24 Hours Test 12/01/17 10:45 12/01/17 10:47 12/01/17 11:02 12/01/17 13:39 Range/Units White Blood Count 11.53 4.8-10.8 K/uL Red Blood Count 4.78 4.7-6.1 M/uL Hemoglobin 14.4 14.0-18.0 g/dL Hematocrit 43.6 42-52 % Mean Corpuscular Volume 91.2 80-100 fL Mean Corpuscular Hemoglobin 30.1 25-34 pg Mean Corpuscular Hemoglobin Concent 33.0 32-36 g/dl Platelet Count 129 130-400 K/uL Mean Platelet Volume 9.5 7.4-10.4 fL Neutrophils (%) (Auto) 75.2 % Lymphocytes (%) (Auto) 14.8 % Monocytes (%) (Auto) 6.1 % Eosinophils (%) (Auto) 0.0 % Basophils (%) (Auto) 0.1 % Neutrophils # (Auto) 8.67 1.4-6.5 K/uL Lymphocytes # (Auto) 1.71 1.2-3.4 K/uL Monocytes # (Auto) 0.70 0.11-0.59 K/uL Eosinophils # (Auto) 0.00 0-0.5 K/uL Basophils # (Auto) 0.01 0-0.2 K/uL RDW Standard Deviation 47.2 36.4-46.3 fL RDW Coefficient of Variation 14.1 11.5-14.5 % Immature Granulocyte % (Auto) 3.8 % Immature Granulocyte # (Auto) 0.44 0.00-0.02 K/uL Prothrombin Time 9.8 9.0-12.0 SECONDS Prothromb Time International Ratio 0.9 0.9-1.1 Activated Partial Thromboplast Time 22.1 21.0-31.0 SECONDS Partial Thromboplastin Ratio 0.9 D-Dimer 190 0-500 ug/L FEU Sodium Level 141 136-145 mmol/L Potassium Level 4.1 3.5-5.1 mmol/L Chloride Level 107 98-107 mmol/L Carbon Dioxide Level 27 21-32 mmol/L Anion Gap 7.0 3-11 mmol/L Blood Urea Nitrogen 17 7-18 mg/dl Creatinine 1.00 0.60-1.40 mg/dl Est Creatinine Clear Calc Drug Dose 98.7 ml/min Estimated GFR () 99.2 Estimated GFR (Non- 85.5 BUN/Creatinine Ratio 17.0 10-20 Random Glucose 220 70-99 mg/dl Calcium Level 8.8 8.5-10.1 mg/dl Troponin I < 0.015 0-0.045 ng/ml Bedside Troponin I < 0.030 0-0.045 ng/ml Influenza Type A Antigen Neg for Influ A NEG Influenza Type B Antigen Neg for Influ B NEG Diagnostic Radiology CXR: IMPRESSION: 1. Severe scoliosis and multiple rib deformities 2. Chronic interstitial thickening. No evidence of acute parenchymal consolidation EKG EKG: sinus tachycardia, rate 104. ST elevation II, V3-V6 Impression Assessment and Plan EKG CHANGES/ST ELEVATION EKG: ST elevation II, V3-V6. Dr Glynn consulted did not suspect acute IN and DDX : possible pericarditis. Negative initial troponin. Negative D-dimer. CXR: No consolidation, chronic interstitial thickening. Negative influenza Ag. WBC: 11.5. Patient afebrile, P 99-110. R: 18. BP: 131/96. 96% on 2 L NC. Patient denying any CP or SOB. given ASA and ibuprofen -admit tele. R/O ACS. Risk factors: HTN, hyperlipidemia, hx tobacco use. DDX: pericarditis -Sed rate and CRP WNL -trend troponin -Repeat EKG in am -echo -Cardiology consult -lipid panel in am, continue statin -ASA -Nitro prn CP and repeat EKG for CP -TSH added -Possible add NSAID/colchicine - attending will determine CHRONIC HYPOXEMIA/HYPERSENSITIVITY PNEUMONITIS/ASTHMA Pt without any increased SOB. 96% on 2L NC. On Levaquin for non-productive cough , last dose tomorrow. Will finish last dose Levaquin tomorrow. On Prednisone 50mg in am plus 10mg TID for hypersensitivity pneumonitis by pulmonology - Dr Barker. -continue oxygen 2L NC prn -continue inhalers and continue neb prn -continue prednisone LEUKOCYTOSIS WBC:11.5. No fever. CXR without infiltrate. No urinary symptoms. Will order U/ A. Suspect leukocytosis from prednisone. -repeat CBC in am HYPERGLYCEMIA No hx dx DM in past. On long course of prednisone. Gluc: 220. -HA1c in am -NovoLog sliding scale per protocol GRACIE -continue CPAP DEPRESSION -continue paxil GERD -continue H2 brody DVT Prophylaxis -Lovenox SQ Disposition admit tele Full Code Follows with Dr Sweeney for routine care Pt was seen with Dr Ho. See addendum ATTENDING ADDENDUM : 52-year-old male, presented with epigastric discomfort chest pain EKG shows diffuse ST-T wave changes Initial troponin negative Patient's symptoms atypical for angina No dyspnea on exertion, no evidence of exercise intolerance No complaint of chest heaviness shortness of breath with activity /exertion Symptom most suggestive of possible pericarditis Will be monitored in telemetry Echo ordered to evaluate for pericardial effusion Cardiology evaluation requested Yarely Ho MD Resuscitation Status Full Code VTE Prophylaxis Will order VTE Prophylaxis: Yes Additional Copies To Brina Sweeney M.D. (MEDICAL)
[2017-12-01] MEDS ORDERED: LEVOFLOXACIN 500 MG TAB PO ONE (16:00)
[2017-12-01] MEDS: INSULIN ASPART 100 UNITS/ML 3 ML PEN SC SCH ×2 (16:15→20:47)
[2017-12-01] MEDS: IPRATROPIUM BROMIDE/ALBUTEROL respimat INH INH SCH ×2 (16:29→21:00)
--- NOTE | 2017-12-01 17:15 | Cardiology Consultation ---
Cardiology Consultation Date of Service Dec 01, 2017. Cardiology Consultation Indication: Consultation for abnormal EKG History: This is a 52-year-old male with no prior history of heart disease. He does have a long history of asthma and reactive lung disease. Approximately a year ago he was very sick. He was seen by cash register operator. The patient at the time was living in an old house where there was mold in the basement. He did spent a lot of time in the basement and he developed a pneumonitis. He has since moved from that environment and there has been improvement except around [place] time he pulled out his artificial tree that had been scored in the previous home basement he develops additional symptoms. Also, in September he developed pneumonitis and pneumonia and had a hospital admission. He's been on long-term steroids and antibiotics. He was with his today during her doctor's appointment. He mentioned that he wasn't feeling well and they obtained an EKG that shows diffuse concave ST segment elevation consistent either with repolarization or possible pericarditis. He's been admitted for further evaluation. Allergies: No known medical allergies Reported Home Medications Medications Dose Route/Sig Max Daily Dose Days Date Category Dose Instructions Levaquin (Levofloxacin) 500 Mg Tab 1 Tab PO DAILY 12/01/17 Reported Last dose on 12/02/17 Dulera 200/5 Mcg (Mometasone Furoate-Formoterol) 1 Aer Aer 2 Puffs INH BID 30 12/01/17 Reported Levalbuterol 1.25 Mg/0.5 Ml Nebu 1.25 Mg INH Q4H 12/01/17 Reported Combivent Respimat (Ipratropium-Albuterol) 1 Aer Aer 1 Puffs INH QID 12/01/17 Reported Pravastatin Sodium (Pravastatin Sod) 40 Mg Tab 1 Tab PO HS 12/01/17 Reported Ranitidine HCl 300 Mg Tab 1 Tab PO BID 12/01/17 Reported Prednisone 50 Mg Tab 50 Mg PO DAILY 12/01/17 Reported Prednisone 10 Mg Tab 10 Mg PO TID 12/01/17 Reported Neurontin (Gabapentin) 100 Mg Cap 100 Mg PO TID 12/01/17 Reported Aspirin Ec (Aspirin) 81 Mg Tab 81 Mg PO DAILY 10/07/17 Reported [place]-3 (Fish Oil) 1 Ea Cap 2 Cap PO DAILY 01/28/17 Reported Imitrex (Sumatriptan Succinate) 50 Mg Tab 50 Mg PO PRN PRN 11/02/12 Reported Take 50 mg at onset of migraine BURNHAM and repeat in 2 hours if continued BURNHAM. Amitriptyline Hcl 50 Mg Tab 1.5 Tab PO HS 11/02/12 Reported Paxil (Paroxetine Hcl) 40 Mg Tab 40 Mg PO DAILY 11/02/12 Reported Past Medical/Surgical History Medical Problems: (1) Asthma Status: Chronic (2) Asthma exacerbation Status: Resolved (3) Asthma, mild persistent Status: Chronic (4) Calculus of kidney and ureter Status: Resolved (5) Chronic back pain Status: Chronic (6) Depression Status: Chronic (7) Depression Status: Chronic (8) Dyslipidemia Status: Chronic (9) Dyslipidemia Status: Chronic (10) Gastroesophageal reflux disease Status: Chronic (11) GERD (gastroesophageal reflux disease) Status: Chronic (12) Hypoxia Status: Chronic (13) Influenza-like syndrome Status: Resolved (14) Kidney stone Status: Resolved (15) Left ureteral calculus Status: Resolved (16) Migraine Status: Chronic (17) Migraine Status: Chronic (18) GRACIE (obstructive sleep apnea) Status: Chronic (19) Pancreatitis Status: Resolved (20) Pancreatitis Status: Resolved (21) Scoliosis Status: Chronic (22) Sleep disorder Status: Chronic Surgical Problems: (1) H/O colonoscopy Status: Chronic (2) History of back surgery Status: Chronic (3) S/p fragment kidney stone by shock wave Status: Chronic (4) S/P nasal surgery Status: Chronic (5) S/P tonsillectomy Status: Chronic (6) S/p ureteral stent placement Status: Chronic (7) spinal surgery due to scoliosis Social history: Patient lives with his . He is a nonsmoker. Family medical history: Noncontributory General: The patient denies weight change, night sweats, fever, chills. Head: The patient denies headache and prior head trauma. Cardiovascular: The patient denies chest pain or chest discomfort, dyspnea on exertion, palpitations, PND, orthopnea, edema, spontaneous shortness of breath, syncope and near syncope. Pulmonary: The patient denies cough, wheeze, pleurisy, hemoptysis, sputum, and excessive snoring. Gastrointestinal: The patient denies nausea, vomiting, diarrhea, constipation, bloating, hematemesis, hematochezia, and abdominal pain. Skin: The patient denies diaphoresis and rash. Musculoskeletal: The patient denies joint pain, joint swelling, myalgia, back pain, neck pain and prior injuries. Neurological: The patient denies prior stroke and seizures Vital Signs Past 12 Hours Date Time Temp Pulse Resp B/P (MAP) Pulse Ox O2 Delivery O2 Flow Rate FiO2 12/01/17 15:10 100 18 152/106 99 Nasal Cannula 2.0 12/01/17 14:27 97 20 140/97 97 Nasal Cannula 2.0 12/01/17 13:43 98 Nasal Cannula 2.0 12/01/17 13:04 100 18 147/96 98 Nasal Cannula 2.0 12/01/17 12:10 99 18 131/96 96 Room Air 2.0 12/01/17 10:49 97 Nasal Cannula 2.0 12/01/17 10:38 Room Air 12/01/17 10:37 104 12/01/17 10:22 37.0 110 18 135/88 96 Nasal Cannula 2.0 General Appearance: Alert and Oriented x3. NAD. Head: Normocephalic Atraumatic. Eyes: PERRLA, EOMI, conjunctiva and sclera clear Neck: Supple. No carotid bruits noted. No JVD. No HJD. Respiratory: Breath sounds clear to auscultation bilaterally. No w/r/r. Cardiovascular: Reg rate and rhythm. S1 and S2 noted. No murmurs, rubs, gallops. PMI non displace. Abdomen: Normal bowel sounds, soft nontender. no abdominal bruits. Extremities: No edema, no clubbing or cyanosis. distal pulses 2/4 bilaterally. Neuro: No focal deficits. Psychiatric: Normal affect. Last 24 Hours Test 12/01/17 10:45 12/01/17 10:47 12/01/17 11:02 12/01/17 17:06 White Blood Count 11.53 K/uL Red Blood Count 4.78 M/uL Hemoglobin 14.4 g/dL Hematocrit 43.6 % Mean Corpuscular Volume 91.2 fL Mean Corpuscular Hemoglobin 30.1 pg Mean Corpuscular Hemoglobin Concent 33.0 g/dl Platelet Count 129 K/uL Mean Platelet Volume 9.5 fL Neutrophils (%) (Auto) 75.2 % Lymphocytes (%) (Auto) 14.8 % Monocytes (%) (Auto) 6.1 % Eosinophils (%) (Auto) 0.0 % Basophils (%) (Auto) 0.1 % Neutrophils # (Auto) 8.67 K/uL Lymphocytes # (Auto) 1.71 K/uL Monocytes # (Auto) 0.70 K/uL Eosinophils # (Auto) 0.00 K/uL Basophils # (Auto) 0.01 K/uL RDW Standard Deviation 47.2 fL RDW Coefficient of Variation 14.1 % Immature Granulocyte % (Auto) 3.8 % Immature Granulocyte # (Auto) 0.44 K/uL Erythrocyte Sedimentation Rate 5 mm/hr Prothrombin Time 9.8 SECONDS Prothromb Time International Ratio 0.9 Activated Partial Thromboplast Time 22.1 SECONDS Partial Thromboplastin Ratio 0.9 D-Dimer 190 ug/L FEU Sodium Level 141 mmol/L Potassium Level 4.1 mmol/L Chloride Level 107 mmol/L Carbon Dioxide Level 27 mmol/L Anion Gap 7.0 mmol/L Blood Urea Nitrogen 17 mg/dl Creatinine 1.00 mg/dl Est Creatinine Clear Calc Drug Dose 98.7 ml/min Estimated GFR () 99.2 Estimated GFR (Non- 85.5 BUN/Creatinine Ratio 17.0 Random Glucose 220 mg/dl Calcium Level 8.8 mg/dl Troponin I < 0.015 ng/ml C-Reactive Protein < 0.29 mg/dl Procalcitonin < 0.05 ng/ml Thyroid Stimulating Hormone (TSH) 0.494 uIu/ml Bedside Troponin I < 0.030 ng/ml Influenza Type A Antigen Neg for Influ A Influenza Type B Antigen Neg for Influ B Impression: 1. Abnormal EKG probably due to pleural/pericarditis 2. History of pneumonitis and pneumonia 3. History of asthma and reactive airways 4. History of allergy to molds Recommendations: The patient has no pleuritic chest pain. He is currently on steroids for his pneumonitis. I would recommend no additional treatment at this time. I would recommend however and echocardiogram to evaluate for pericardial effusion. Thus far all his cardiac markers are negative which I believe if he had pericarditis at least the troponin would be elevated. I will reassess him tomorrow.
[2017-12-01 18:57] VITALS: BP 141/95; PULSE 102; TEMP 36.8; O2SAT 97
[2017-12-01 20:00] VITALS: O2SAT 97
[2017-12-01] MEDS ORDERED: PRAVASTATIN SOD 40 MG TAB PO SCH (21:00)
[2017-12-01] MEDS ORDERED: AMITRIPTYLINE HCL 25 MG TAB PO SCH (21:00)
[2017-12-01] MEDS ORDERED: ENOXAPARIN 40 MG/0.4 ML SYR SC SCH (21:00)
[2017-12-01] MEDS: RANITIDINE HCL 150 MG TAB PO SCH (21:01)
[2017-12-01] MEDS: GABAPENTIN 100 MG CAP PO SCH (21:01)
[2017-12-01 22:30] VITALS: PULSE 102; O2SAT 97
[2017-12-02 00:02] VITALS: BP 118/93; PULSE 93; TEMP 36.7; O2SAT 96
[2017-12-02 03:44] VITALS: BP 133/98; PULSE 88; TEMP 36.5; O2SAT 93
[2017-12-02 06:06] LABS: HEMATOCRIT 44.8 % (42-52); HEMOGLOBIN 14.6 g/dL (14.0-18.0); MEAN CELL VOLUME 91.8 fL (80-100); MEAN CORPUSCULAR HEMOGLOBIN 29.9 pg (25-34); MEAN CORPUSCULAR HGB CONC 32.6 g/dl (32-36); MEAN PLATELET VOLUME 9.9 fL (7.4-10.4); PLATELET COUNT 130 K/uL (130-400); RED CELL DISTRIBUTION WIDTH CV 14.3 % (11.5-14.5); RED CELL DISTRIBUTION WIDTH SD 48.6 fL (36.4-46.3); WHITE BLOOD COUNT 14.32 K/uL (4.8-10.8)
[2017-12-02 06:39] LABS: CALCIUM 8.6 mg/dl (8.5-10.1); CREATININE 0.96 mg/dl (0.60-1.40); POTASSIUM 4.3 mmol/L (3.5-5.1)
[2017-12-02] MEDS: INSULIN ASPART 100 UNITS/ML 3 ML PEN SC SCH ×2 (07:00→11:37)
[2017-12-02 07:19] LABS: HEMOGLOBIN A1C 6.5 % (4.5-5.6)
[2017-12-02 07:53] VITALS: BP 131/93; PULSE 93; TEMP 36.5; O2SAT 97
[2017-12-02] MEDS: RANITIDINE HCL 150 MG TAB PO SCH (08:16)
[2017-12-02] MEDS: GABAPENTIN 100 MG CAP PO SCH (08:16)
[2017-12-02] MEDS: IPRATROPIUM BROMIDE/ALBUTEROL respimat INH INH SCH (08:16)
[2017-12-02] MEDS ORDERED: PERFLUTREN LIPID MICROSPHERE (DEFINITY) IV ONE (08:24)
[2017-12-02] MEDS ORDERED: ASPIRIN 81 MG ECTAB PO SCH ×2 (09:00)
[2017-12-02] MEDS ORDERED: OMEGA-3 (PURIFIED FISH OIL) 1 GM CAP PO SCH (09:00)
[2017-12-02] MEDS ORDERED: PAROXETINE 20 MG TAB PO SCH (09:00)
[2017-12-02] MEDS ORDERED: LEVOFLOXACIN 500 MG TAB PO SCH (11:00)
--- NOTE | 2017-12-02 11:16 | ECHOCARDIOGRAM REPORT ---
*NOTICE TO RECEIVING [employer] This information is strictly Confidential and protected under [place] law. [place] law prohibits you from making any further disclosure of this information unless further disclosure is expressly permitted by the written consent of the person to whom it pertains or is authorized by law. A general authorization for the release of medical or other information is not sufficient for this purpose. Hospital accepts no responsibility if the information is made available to any other person, INCLUDING THE PATIENT. Interpretation Summary * Name: LELO CONCEPCION Study Date: 12/02/2017 07:00 AM BP: 133/98 mmHg * Patient Location: [id number].[id number]\E206\S\1 HR: 90 * : 1965 (M/d/yyyy) Gender: Male Height: 69 in * Age: 52 yrs Ethnicity: CA Weight: 216 lb * Ordering Physician: Haley Abdullahi * Referring Physician: Tona Olivarez PA-C * Performed By: Analisa Hardy RDCS * * Reason For Study: SOB, EKG CHANGES * BSA: 2.1 m2 * Grossly normal valvular structure and function. * -- Conclusions -- * The pericardium appears normal. * There is no pericardial effusion. * The left ventricle is normal in size. * Left ventricular systolic function is normal. * Ejection Fraction = 50-55%. * The left ventricular wall motion is normal. * Grossly normal valvular structure and function. Procedure Details * A complete two-dimensional transthoracic echocardiogram was performed (2D, M-mode, Doppler and color flow Doppler). * A contrast injection of Definity was performed to improve assessment of LV function. * Contrast was injected into an intravenous site in the left arm. * One vial of Definity ultrasound contrast was diluted in normal saline to a total volume of 10 ml. A total of '1' ml of solution was administered during imaging. * Lot # [id number] of Definity utilized for procedure. * Expiration date 1 NOV 14. * The attending nurse who injected the contrast agent was AMBIKA ADAMS RN. Left Ventricle * The left ventricle is normal in size. * Ejection Fraction = 50-55%. * Left ventricular systolic function is normal. * The left ventricular wall motion is normal. Right Ventricle * The right ventricle is normal size. * The right ventricular systolic function is normal. Atria * The left atrium is not well visualized. * The left atrial size is normal. * Right atrium not well visualized. * Right atrial size is normal. Mitral Valve * The mitral valve is grossly normal. * Significant mitral regurgitation is absent. Tricuspid Valve * The tricuspid valve is not well visualized, but is grossly normal. * Significant tricuspid regurgitation is absent. Aortic Valve * The aortic valve is tricuspid. The leaflet thickness if normal. There is no aortic stenosis, and no significant insufficiency. * Aortic stenosis is absent. * There is no significant aortic regurgitation. Pulmonic Valve * The pulmonic valve is not well seen, but is grossly normal. * There is no significant pulmonary regurgitation. Great Vessels * The aortic root and proximal ascending aorta are normal sized. Pericardium/Pleural * There is no pericardial effusion. * The pericardium appears normal. MMode 2D Measurements and Calculations IVSd 1.2 cm IVSs 1.4 cm LVIDd 4.0 cm LVIDs 3.0 cm LVPWd 1.2 cm LVPWs 1.4 cm IVS/LVPW 1.0 FS 26.7 % EDV(Teich) 71.5 ml ESV(Teich) 33.9 ml EF(Teich) 52.6 % EDV(cubed) 65.8 ml ESV(cubed) 25.9 ml EF(cubed) 60.6 % % IVS thick 12.9 % % LVPW thick 18.7 % LV mass(C)d 164.6 grams LV mass(C)dI 77.1 grams/m\S\2 LV mass(C)s 133.3 grams LV mass(C)sI 62.5 grams/m\S\2 SV(Teich) 37.7 ml SI(Teich) 17.6 ml/m\S\2 SV(cubed) 39.8 ml SI(cubed) 18.7 ml/m\S\2 Ao root diam 3.3 cm Ao root area 8.8 cm\S\2 LA dimension 2.9 cm LA/Ao 0.88 LVAd ap4 25.4 cm\S\2 LVLd ap4 8.0 cm EDV(MOD-sp4) 64.8 ml EDV(sp4-el) 68.8 ml LVAs ap4 17.4 cm\S\2 LVLs ap4 7.7 cm ESV(MOD-sp4) 32.1 ml ESV(sp4-el) 33.5 ml EF(MOD-sp4) 50.4 % EF(sp4-el) 51.4 % LVAd ap2 34.2 cm\S\2 LVLd ap2 9.2 cm EDV(MOD-sp2) 102.2 ml EDV(sp2-el) 108.2 ml LVAs ap2 22.9 cm\S\2 LVLs ap2 8.2 cm ESV(MOD-sp2) 50.5 ml ESV(sp2-el) 54.1 ml EF(MOD-sp2) 50.6 % EF(sp2-el) 50.0 % LVLd %diff 12.8 % EDV(MOD-bp) 87.7 ml LVLs %diff 7.0 % ESV(MOD-bp) 42.0 ml EF(MOD-bp) 52.1 % SV(MOD-sp4) 32.6 ml SI(MOD-sp4) 15.3 ml/m\S\2 SV(MOD-sp2) 51.7 ml SI(MOD-sp2) 24.2 ml/m\S\2 SV(MOD-bp) 45.7 ml SI(MOD-bp) 21.4 ml/m\S\2 SV(sp4-el) 35.3 ml SI(sp4-el) 16.6 ml/m\S\2 SV(sp2-el) 54.1 ml SI(sp2-el) 25.4 ml/m\S\2 Doppler Measurements and Calculations MV E max ivory 70.3 cm/sec MV A max ivory 90.2 cm/sec MV E/A 0.78 MV dec time 0.24 sec Ao V2 max 108.0 cm/sec Ao max PG 4.7 mmHg Ao max PG (full) 2.5 mmHg LV V1 max PG 2.2 mmHg LV V1 max 74.2 cm/sec
--- NOTE | 2017-12-02 11:38 | Cardiology Follow-Up ---
Subjective Subjective Date of Service: Dec 02, 2017. Pt evaluation today including: conversation w/ patient, conversation w/ family , physical exam, chart review, lab review, review of studies, review of inpatient medication list Additional Details: The patient had an uneventful night. I reviewed his echocardiogram and there is no evidence of significant pericardial disease or effusion. Rhythm has been stable. Problem List Medical Problems: (1) Asthma Status: Chronic (2) Bilateral pneumonia Status: Acute (3) Chest pain, unspecified Status: Acute (4) Chronic back pain Status: Chronic (5) Depression Status: Chronic (6) Dyslipidemia Status: Chronic (7) Gastroesophageal reflux disease Status: Chronic (8) Migraine Status: Chronic (9) Pericarditis Status: Acute (10) Pneumonitis Status: Acute (11) Scoliosis Status: Chronic (12) Sleep disorder Status: Chronic Review of Systems Abdomen: + pain, + nausea Male : + urinary frequency, + nocturia more than once/night Objective Vital Signs Last Vital Signs Documentation Date Time Temp Pulse Resp B/P (MAP) Pulse Ox O2 Delivery O2 Flow Rate FiO2 12/02/17 08:00 Nasal Cannula 2.0 12/02/17 07:53 36.5 93 18 131/93 (106) 97 Physical Exam: General Appearance: WD/WN, no apparent distress ENT: normal ENT inspection Respiratory/Chest: lungs clear, no respiratory distress Cardiovascular: regular rate, rhythm, no edema, no gallop, no JVD, no murmur Abdomen: normal bowel sounds, non tender Extremities: normal range of motion, normal inspection, no pedal edema 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 History of pneumonitis 2. Asthma and reactive airways 3. History of mold allergy 4. EKG changes secondary to #1 Recommendations: I reviewed the patient's echocardiogram from cardiac standpoint I believe he may be discharged to outpatient follow-up. The follow-up can be with his licensed nuclear operator and primary personal care service provider.
[2017-12-02 12:25] VITALS: BP 139/93; PULSE 99; TEMP 36.4; O2SAT 93
--- NOTE | 2017-12-02 13:41 | Discharge Instructions ---
Discharge Instructions Date of Service Dec 02, 2017. Admission Reason for Admission: Acute Electrocardiogram Changes Discharge Discharge Diagnosis / Problem: CHEST PAIN /ATYPICAL , NO EVIDENCE OF CORONARY EVENT Discharge Goals Goal(s): Decrease discomfort, Diagnostic testing, Therapeutic intervention Activity Recommendations Activity Limitations: resume your previous activity . Instructions / Follow-Up Instructions / Follow-Up HOSPITAL FOLLOW UP : 12/06/2017 2:20 PM Brina Sweeney MD Located Within [facility] Current Hospital Diet Patient's current hospital diet: AHA Diet (Heart Healthy), Diabetes Type 2 Diet Discharge Diet Recommended Diet: AHA Diet (Heart Healthy), Diabetes Type 2 Diet Pending Studies Studies pending at discharge: no Laboratory Results Hemoglobin A1c Test 12/02/17 05:45 Range/Units Estimated Average Glucose 140 mg/dl Hemoglobin A1c 6.5 H 4.5-5.6 % Lipid Panel Test 12/02/17 05:45 Range/Units Triglycerides Level 189 H 0-150 mg/dl Cholesterol Level 164 0-200 mg/dl HDL Cholesterol 55 mg/dl Cholesterol/HDL Ratio 3.0 LDL Cholesterol, Calculated 71 mg/dl Medical Emergencies . Who to Call and When: Medical Emergencies: If at any time you feel your situation is an emergency, please call 911 immediately. . Non-Emergent Contact Non-Emergency issues call your: Primary Care Provider . . "Provider Documentation" section prepared by Yarely Ho. .
[2017-12-02 13:47] VITALS: BP 139/93; PULSE 99; TEMP 36.4; O2SAT 93
--- NOTE | 2017-12-05 00:04 | Discharge Summary ---
Discharge Summary Date of Service Dec 05, 2017. Discharge Summary Admission Date: Dec 01, 2017 at 13:28 Discharge Date: Dec 02, 2017 Discharge Disposition: Home Principal Diagnosis: CHEST PAIN /ATYPICAL , NO EVIDENCE OF CORONARY EVENT Procedures: Echo: The pericardium appears normal. There is no pericardial effusion. The left ventricle is normal in size. Left ventricular systolic function is normal. Ejection fraction 50-55% Left ventricular wall motion is normal. Grossly normal valvular structure and function. CHEST 2 VIEWS ROUTINE CLINICAL HISTORY: cough sob COMPARISON STUDY: 10/07/2017 FINDINGS: There is a prominent thoracolumbar scoliosis. The heart is borderline enlarged. There is no failure. There is no focal pulmonary consolidation. There are no pleural effusions. 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 Multiple chronic rib deformities are evident.[ IMPRESSION: 1. Severe scoliosis and multiple rib deformities 2. Chronic interstitial thickening. No evidence of acute parenchymal consolidation Consultations: Cardiology Medication Reconciliation Continued Medications: Amitriptyline Hcl (Amitriptyline Hcl) 50 Mg Tab 1.5 TAB PO HS, TAB Aspirin (Aspirin Ec) 81 Mg Tab 81 MG PO DAILY Fish Oil ([place]-3) 1 Ea Cap 2 CAP PO DAILY Gabapentin (Neurontin) 100 Mg Cap 100 MG PO TID, CAP Ipratropium-Albuterol (Combivent Respimat) 1 Aer Aer 1 PUFFS INH QID, INH Levalbuterol (Levalbuterol) 1.25 Mg/0.5 Ml Nebu 1.25 MG INH Q4H for SOB/Wheezing Levofloxacin (Levaquin) 500 Mg Tab 1 TAB PO DAILY Last dose on 12/02/17 Mometasone Furoate-Formoterol (Dulera 200/5 Mcg) 1 Aer Aer 2 PUFFS INH BID for 30 Days, #13 GM 5 Refills Paroxetine Hcl (Paxil) 40 Mg Tab 40 MG PO DAILY, TAB Pravastatin Sod (Pravastatin Sodium) 40 Mg Tab 1 TAB PO HS Prednisone (Prednisone) 50 Mg Tab 50 MG PO DAILY, TAB Prednisone Tab (Prednisone) 10 Mg Tab 10 MG PO TID, TAB Ranitidine HCl (Ranitidine HCl) 300 Mg Tab 1 TAB PO BID Sumatriptan Succinate (Imitrex) 50 Mg Tab 50 MG PO PRN PRN for Migraine, TAB Take 50 mg at onset of migraine BURNHAM and repeat in 2 hours if continued BURNHAM. Admission Information HPI (per Admitting provider): Pt is 52 y/o M with PMH hypersensitivity pneumonitis, asthma, GRACIE, depression, migraine headache, GERD who presented to ER from outpatient office for EKG changes. Patient reports this morning that his told him that he did not look good and his skin color appeared wilson. Patient denies any worsening shortness of breath from baseline, chest pain, diaphoresis, nausea, vomiting, headache. Patient does report started with cough approximately 1 week ago. Cough is nonproductive. 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 Last dose is tomorrow. Reports cough still present but doesn't believe it is worse. Patient is currently on prednisone for hypersensitivity pneumonitis he is on 50 mg in the morning, 10 mg 3 times daily. He is to be on this for 2 months and then considering taper in 3-5 months if symptoms are stable or improved. Patient reports uses oxygen at 2 L nasal cannula during the day with exertion. He reports baseline oxygen saturations on room air with exertion are around 88% and in the mid 90s with sitting. Uses Combivent inhaler QID. Patient denies any cardiac history. Denies any history of stress test or cardiac catheterization in the past. History of echo 02/09 - EF: 65-70%. Patient was hospitalized 10/07/17 10/11/17 for asthma exacerbation and pneumonia and was treated with Levaquin, Solu-Medrol, and nebs. Denies fever/chills, diaphoresis, N/V/D/C, BURNHAM, dizziness, syncope, vision changes, neck pain, CP,orthopnea, palpitations, hemoptysis, sore throat, choking, otalgia, rhinorrhea, abdominal pain, paresthesias, weakness, extremity edema, rashes, urinary symptoms. Here in the ER EKG was obtained noticed have sinus tachycardia at 104 ST elevations were noted in leads II, V3-V6. Dr. Glynn rn clinical review was consulted, suspected pericarditis and not acute TN. Negative initial troponin. Negative d-dimer. CXR: No consolidation, chronic interstitial thickening. Negative influenza Ag. WBC: 11.5. Glucose: 220. Patient afebrile pulse 99-110. Respirations: 18. BP: 131/96. 96% on 2 L NC. Patient denying any current chest pain or shortness of breath. Pt given ASA and ibuprofen. Physical Exam (per Admitting): General Appearance: WD/WN, no apparent distress Head: normocephalic, atraumatic Eyes: normal inspection, PERRL, EOMI, sclerae normal ENT: hearing grossly normal, + pertinent finding (moist mucous membranes) Neck: supple, no JVD, trachea midline Respiratory/Chest: no respiratory distress, no accessory muscle use, + decreased breath sounds (throughout) Cardiovascular: no murmur, + tachycardia (104) Abdomen/GI: normal bowel sounds, non tender, soft Extremities/Musculoskelatal: normal capillary refill, no pedal edema, normal range of motion, non-tender Neurologic/Psych: alert, normal mood/affect, oriented x 3 Skin: normal color, warm/dry Hospital Course No complaint of chest pain, no fever or chills No epigastric discomfort, no nausea vomiting Evaluated by cardiology Stable to be discharged home Physical exam: General: No sign of distress, comfortable HEENT: Sclera nonicteric, EOMI/PERRLA Heart: Regular S1 and S2, no reproducible chest wall tenderness Lungs: Clear to auscultation no wheezes rales Abdomen: Soft nontender, no organomegaly, active bowel sounds Extremity: No evidence of lower extremity edema, no calf tenderness, no rash or deformity Neuro: Alert awake oriented 3, no focal neurological deficit Assessment and plan: 1. Chest pain/diffuse ST-T wave changes in EKG: Possible secondary to vital pericarditis/pneumonitis Patient reports of having Flulike symptoms/cough, low-grade fever last week Symptom has completely resolved No complaint of chest pain On taking deep breath, no dyspnea on exertion Appreciate cardiology Echocardiogram shows no evidence of any pericardial effusion, normal LV function , no valvular disease 2. Hypertension: Blood pressure stable Continue outpatient meds CHRONIC HYPOXEMIA/HYPERSENSITIVITY PNEUMONITIS/ASTHMA Pt without any increased SOB. 96% on 2L NC. Started on Levaquin in clinic for for non-productive cough, Continue supplemental O2-baseline Outpatient follow-up with pulmonology GRACIE -continue CPAP DEPRESSION -continue paxil GERD -continue H2 brody DVT Prophylaxis -Lovenox SQ Disposition Discharged home today Discharge Instructions Discharge Instructions Date of Service Dec 02, 2017. Admission Reason for Admission: Acute Electrocardiogram Changes Discharge Discharge Diagnosis / Problem: CHEST PAIN /ATYPICAL , NO EVIDENCE OF CORONARY EVENT Discharge Goals Goal(s): Decrease discomfort, Diagnostic testing, Therapeutic intervention Activity Recommendations Activity Limitations: resume your previous activity . Instructions / Follow-Up Instructions / Follow-Up HOSPITAL FOLLOW UP : 12/06/2017 2:20 PM Brina Sweeney MD [facility] Diet Patient's current hospital diet: AHA Diet (Heart Healthy), Diabetes Type 2 Diet Discharge Diet Recommended Diet: AHA Diet (Heart Healthy), Diabetes Type 2 Diet Pending Studies Studies pending at discharge: no Laboratory Results Hemoglobin A1c Test 12/02/17 05:45 Range/Units Estimated Average Glucose 140 mg/dl Hemoglobin A1c 6.5 H 4.5-5.6 % Lipid Panel Test 12/02/17 05:45 Range/Units Triglycerides Level 189 H 0-150 mg/dl Cholesterol Level 164 0-200 mg/dl HDL Cholesterol 55 mg/dl Cholesterol/HDL Ratio 3.0 LDL Cholesterol, Calculated 71 mg/dl Medical Emergencies . Who to Call and When: Medical Emergencies: If at any time you feel your situation is an emergency, please call 911 immediately. . Non-Emergent Contact Non-Emergency issues call your: Primary Care Provider . . "Provider Documentation" section prepared by Yarely Ho. .
== END 2017-12-02 13:56 | disposition home or self-care (01) ==
LOC: C.EDB 10:20 → C.2E 13:28 → ENRESERV 14:37
PROVIDERS: ADMIT Hospitalist; ATTEND Hospitalist
DX: R07.89 Other chest pain (principal); J67.9 Hypersensitivity pneumonitis due to unspecified organic dust; J45.909 Unspecified asthma, uncomplicated; K21.9 Gastro-esophageal reflux disease without esophagitis; G47.33 Obstructive sleep apnea (adult) (pediatric); R73.9 Hyperglycemia, unspecified; E78.5 Hyperlipidemia, unspecified; E78.00 Pure hypercholesterolemia, unspecified; F41.9 Anxiety disorder, unspecified; F32.9 Major depressive disorder, single episode, unspecified; Z87.442 Personal history of urinary calculi; Z83.3 Family history of diabetes mellitus; Z80.2 Family history of malignant neoplasm of other respiratory and intrathoracic organs; Z83.79 Family history of other diseases of the digestive system; Z82.49 Family history of ischemic heart disease and other diseases of the circulatory system; Z82.3 Family history of stroke; Z87.891 Personal history of nicotine dependence; Z79.82 Long term (current) use of aspirin; Z79.899 Other long term (current) drug therapy; Z79.52 Long term (current) use of systemic steroids

== ENCOUNTER → 2018-02-03 | Outpatient (CLI) | payer OTHER ==
[~2018-02-03] MED LIST changes: -FLVHFA110 INH; +GABA-112 PO; +IPRA1AER2 INH; -IPRASOL4 INH; +LEVO-459 PO; +MOME200A INH; -PRD10 PO; +PRED10TA PO; +PRED50TA PO; +PRVC/40 PO; -RANI300C PO; +XPNINS1255 INH; +ZNT/300 PO
[2018-02-03 12:32] LABS: BASO % 0.2 %; BASO ABS # 0.02 K/uL (0-0.2); HEMATOCRIT 41.5 % (42-52); HEMOGLOBIN 13.9 g/dL (14.0-18.0); IG# 0.17 K/uL (0.00-0.02); LYMPH % 14.6 %; LYMPH ABS # 1.49 K/uL (1.2-3.4); MEAN CELL VOLUME 95.2 fL (80-100); MEAN CORPUSCULAR HEMOGLOBIN 31.9 pg (25-34); MEAN CORPUSCULAR HGB CONC 33.5 g/dl (32-36); MEAN PLATELET VOLUME 9.9 fL (7.4-10.4); MONO % 4.5 %; MONO ABS # 0.46 K/uL (0.11-0.59); NEUT ABS # 8.07 K/uL (1.4-6.5); PLATELET COUNT 177 K/uL (130-400); RED CELL DISTRIBUTION WIDTH CV 14.7 % (11.5-14.5); RED CELL DISTRIBUTION WIDTH SD 51.3 fL (36.4-46.3); WHITE BLOOD COUNT 10.21 K/uL (4.8-10.8)
[2018-02-03 13:33] LABS: INFLUENZA A PCR Neg for Influ A (NEG); INFLUENZA B PCR Neg for Influ B (NEG)
== END | disposition home or self-care (01) ==
LOC: C.LAB1850 11:12
PROVIDERS: ATTEND Internal Medicine Critical Care Medicine
DX: J67.9 Hypersensitivity pneumonitis due to unspecified organic dust (principal); R06.02 Shortness of breath

== ENCOUNTER → 2018-02-03 | Outpatient (CLI) | payer OTHER ==
--- NOTE | 2018-02-03 11:06 | DIAGNOSTIC IMAGING REPORT ---
ABDOMEN 2VIEW W/PA CHEST RTN CLINICAL HISTORY: J67.9 Hypersensitivity [id number] Shortness of breathRAD8 dyspnea COMPARISON STUDY: 12/01/2017 FINDINGS: Moderate deformity of the chest unaltered from the prior exam. Mild chronic interstitial prominence throughout both hemithoraces. No evidence for an acute or superimposed infiltrate. Mild stable cardiomegaly. IMPRESSION: Chronic change is noted. Mild chronic interstitial change. No acute process. The above report was generated using voice recognition software. It may contain grammatical, syntax or spelling errors. Electronically signed by: Sergey Levine M.D. 02/03/2018 11:04 AM Dictated Date/Time: 02/03/2018 11:03 AM
== END | disposition home or self-care (01) ==
LOC: C.RAD 10:34
PROVIDERS: ATTEND Internal Medicine Critical Care Medicine
DX: J67.9 Hypersensitivity pneumonitis due to unspecified organic dust (principal); R06.02 Shortness of breath

== ENCOUNTER 2018-03-01 20:40 | Inpatient (IN) | payer OTHER ==
[~2018-03-01] VITALS: Ht 177.8 cm; Wt 91.7 kg
[2018-03-01] MEDS ORDERED: METHYLPREDNISOLONE 125 MG VIAL IV STA (20:57)
[2018-03-01] MEDS ORDERED: ALBUT/IPRATROP 3MG/0.5MG NEB 3 ML VIAL INH STA (20:57)
[2018-03-01] MEDS ORDERED: PIPERACILLIN/TAZOBACTAM 4.5 GM/100ML D5W IV STA (20:57)
--- NOTE | 2018-03-01 21:18 | DIAGNOSTIC IMAGING REPORT ---
CHEST ONE VIEW PORTABLE CLINICAL HISTORY: EVALUATE RESPIRATORY DISTRESS.DYSPNEA COMPARISON STUDY: 2017 FINDINGS: Moderate increase in cardiac size. Prominent pulmonary vasculature. Deformity of the chest wall musculoskeletal structures which has been described previously. Components of congestive heart failure present. IMPRESSION: Congestive heart failure. The above report was generated using voice recognition software. It may contain grammatical, syntax or spelling errors. Electronically signed by: Sergey Levine M.D. 03/01/2018 9:16 PM Dictated Date/Time: 03/01/2018 9:16 PM
[2018-03-01] MEDS ORDERED: NITROGLYCERIN 2% OINTMENT 30GM TUBE EXT ONE (21:30)
[2018-03-01 21:38] LABS: BASO % 0.2 %; BASO ABS # 0.02 K/uL (0-0.2); EOS ABS # 0.12 K/uL (0-0.5); HEMATOCRIT 38.5 % (42-52); HEMOGLOBIN 13.1 g/dL (14.0-18.0); IG# 0.11 K/uL (0.00-0.02); LYMPH % 21.3 %; LYMPH ABS # 2.64 K/uL (1.2-3.4); MEAN PLATELET VOLUME 9.9 fL (7.4-10.4); MONO % 8.2 %; MONO ABS # 1.02 K/uL (0.11-0.59); NEUT % 68.4 %; NEUT ABS # 8.49 K/uL (1.4-6.5); PLATELET COUNT 181 K/uL (130-400); RED CELL DISTRIBUTION WIDTH CV 13.4 % (11.5-14.5); RED CELL DISTRIBUTION WIDTH SD 47.3 fL (36.4-46.3)
[2018-03-01 21:44] LABS: PTT PATIENT 27.8 SECONDS (21.0-31.0)
[2018-03-01 21:49] LABS: ALBUMIN 3.2 gm/dl (3.4-5.0); ALKALINE PHOSPHATASE 96 U/L (45-117); ALT/SGPT 43 U/L (12-78); AST/SGOT 26 U/L (15-37); BLOOD UREA NITROGEN 9 mg/dl (7-18); CALCIUM 8.3 mg/dl (8.5-10.1); CARBON DIOXIDE 32 mmol/L (21-32); CREATININE 0.83 mg/dl (0.60-1.40); GLUCOSE 129 mg/dl (70-99); LIPASE 80 U/L (73-393); POTASSIUM 3.8 mmol/L (3.5-5.1); SODIUM 140 mmol/L (136-145); TOTAL PROTEIN 6.9 gm/dl (6.4-8.2)
[2018-03-01] MEDS ORDERED: FUROSEMIDE 40 MG/4 ML VIAL IV STA (21:50)
[2018-03-01 21:58] VITALS: PULSE 114; O2SAT 99
[2018-03-01] MEDS ORDERED: ACETAMINOPHEN 500 MG TAB PO STA (22:13)
[2018-03-01] MEDS ORDERED: ICU PROTOCOL FOR HYPERGLYCEMIA PRN (22:45)
[2018-03-01] MEDS ORDERED: ASPI325T39 PO (22:46)
[2018-03-01] MEDS ORDERED: PRED-301 PO (22:50)
[2018-03-01 23:00] VITALS: BP 135/95; PULSE 122; O2SAT 95
--- NOTE | 2018-03-01 23:09 | History and Physical ---
History & Physical Date & Time of Service: Mar 01, 2018 at 23:09 . Chief Complaint: shortness of breath . Primary Care Physician: History of Present Illness Source: patient, clinic records, hospital records 52-year-old male followed by [facility] in [place] for primary care and Dr. Barker for Pulmonary Medicine. History of severe COPD, scoliosis, sleep apnea, and other problems as noted below. COPD is steroid and O2 dependent. He has been trying to taper his prednisone and recently tapered down to 15 mg daily. Usually uses oxygen 3 L/min via NC. On CPAP at night. Presented to the ED this evening with increasing dyspnea. Worsening symptoms started 2 or 3 days ago. Initially, noted dyspnea with exertion; symptoms progressed and now dyspneic at rest. Note some chills, but no documented fever. Nonproductive cough. Chest pain with coughing. No angina or pleuritic chest pain. Has noted some dependent edema. Very thirsty and drinking large quantities of fluid daily (patient estimates ~ 5 L of fluids / 24 hours). Used nebs at home with minimal benefit. Came to the ED for evaluation. Received nebulizer treatment and IV methylprednisolone. Oxygen saturations as low as 79% on O2. BiPAP applied for ventilatory support. . Past Medical/Surgical History Chronic and Resolved Medical Problems: (1) Asthma Status: Chronic (2) Calculus of kidney and ureter Status: Resolved (3) Chronic back pain Status: Chronic (4) COPD (chronic obstructive pulmonary disease) Status: Chronic (5) Depression Status: Chronic (7) Dyslipidemia Status: Chronic (9) Gastroesophageal reflux disease Status: Chronic (11) Hypoxia Status: Chronic (14) Left ureteral calculus Status: Resolved (17) Migraine headache Status: Chronic (18) GRACIE (obstructive sleep apnea) Status: Chronic (20) Pancreatitis Status: Resolved (21) Scoliosis Status: Chronic Surgical Problems: (1) H/O colonoscopy Status: Chronic (2) History of back surgery Status: Chronic (3) S/p fragment kidney stone by shock wave Status: Chronic (4) S/P nasal surgery Status: Chronic (5) S/P tonsillectomy Status: Chronic (6) S/p ureteral stent placement Status: Chronic (7) spinal surgery due to scoliosis Status: Resolved . Family History FATHER FH: heart disease (fatal [place]/stroke age 79) Diabetes mellitus Stroke BROTHER FH: heart disease ([place] in early 50s) FH: cancer (lung CA) Relation not specified for: FH: kidney disease FHx: gallstones Hypertension Social History Smoking Status: Current Every Day Smoker Alcohol Use: occasionally Drug Use: none Marital Status: Housing status: lives with family Occupational Status: employed Immunizations History of Influenza Vaccine: Yes History of Tetanus Vaccine?: Yes History of Pneumococcal: Yes History of Hepatitis B Vaccine: Yes Allergies Coded Allergies: No Known Allergies (Unverified , 03/01/18) Home Medications Scheduled Amitriptyline Hcl (Amitriptyline Hcl), 75 MG PO HS Aspirin (Aspirin Ec), 325 MG PO DAILY Fish Oil ([place]-3), 2 CAP PO DAILY Gabapentin (Neurontin), 100 MG PO BID Ipratropium-Albuterol (Combivent Respimat), 1 PUFFS INH QID Levalbuterol (Levalbuterol), 1.25 MG INH Q4H Mometasone Furoate-Formoterol (Dulera 200/5 Mcg), 2 PUFFS INH BID Paroxetine Hcl (Paxil), 40 MG PO DAILY Pravastatin Sod (Pravastatin Sodium), 1 TAB PO HS Prednisone (Prednisone), 50 MG PO UD Prednisone (Prednisone), 5 MG PO UD Prednisone Tab (Prednisone), 10 MG PO TID Ranitidine HCl (Ranitidine HCl), 1 TAB PO BID Scheduled PRN Sumatriptan Succinate (Imitrex), 50 MG PO PRN PRN for Migraine Review of Systems CONSTITUTIONAL no fever no weight loss EYES no acute visual changes EARS, NOSE, MOUTH, AND THROAT no hearing loss + nasal congestion no pharyngitis no thrush CARDIOVASCULAR no chest pain no palpitations + edema RESPIRATORY as noted above in HPI GASTROINTESTINAL + GE reflux no nausea or vomiting no diarrhea no constipation no melena or hematochezia GENITOURINARY no dysuria no hematuria MUSCULOSKELETAL no myalgias no arthralgias INTEGUMENTARY no rash no new / changing lesions NEUROLOGIC + migraine headaches no focal neurologic symptoms ENDOCRINE + polyuria and polydipsia HEMATOLOGIC / LYMPHATIC no unusual bruising or bleeding no adenopathy . Physical Exam Vital Signs Date Time Temp Pulse Resp B/P (MAP) Pulse Ox O2 Delivery O2 Flow Rate FiO2 03/01/18 22:34 126 160/98 94 BiPAP 03/01/18 22:23 Nasal Cannula 3.0 95 03/01/18 21:58 114 99 40 03/01/18 21:35 110 17 153/100 100 Nebulizer 03/01/18 21:30 107 03/01/18 20:44 36.4 116 30 164/106 94 Nasal Cannula 4.0 CONSTITUTIONAL vital signs as noted above adult male, dyspneic at rest EYES conjunctivae clear; lids normal pupils equal and reactive to light EARS, NOSE, MOUTH AND THROAT external inspection of ears and nose unremarkable hearing grossly intact to spoken voice oropharynx clear, no thrush NECK no masses; trachea midline thyroid normal RESPIRATORY tachypneic, using accessory muscles of respiration diffuse wheezing clear to percussion CARDIOVASCULAR regular rate and rhythm no murmur, gallop, rub appreciated + JVD carotid arteries 2/2 abdominal aorta not palpable pedal pulses intact and symmetric capillary refill toes < 2 seconds trace pretibial edema GASTROINTESTINAL normal bowel sounds, soft, nontender; no palpable masses no hepatomegaly; no splenomegaly LYMPHATIC no cervical adenopathy MUSCULOSKELETAL no cyanosis at time of my assessment no calf tenderness motor strength extremities grossly intact SKIN no rash warm and dry NEUROLOGIC PERRL, EOMI, no facial palsy, no dysarthria, tongue midline patellar DTR's 2/2 PSYCHIATRIC oriented to person, place, time mood and affect appropriate . Diagnostics Laboratory Results Results Past 24 Hours Test 03/01/18 21:10 03/01/18 21:15 Range/Units White Blood Count 12.40 4.8-10.8 K/uL Red Blood Count 3.97 4.7-6.1 M/uL Hemoglobin 13.1 14.0-18.0 g/dL Hematocrit 38.5 42-52 % Mean Corpuscular Volume 97.0 80-100 fL Mean Corpuscular Hemoglobin 33.0 25-34 pg Mean Corpuscular Hemoglobin Concent 34.0 32-36 g/dl Platelet Count 181 130-400 K/uL Mean Platelet Volume 9.9 7.4-10.4 fL Neutrophils (%) (Auto) 68.4 % Lymphocytes (%) (Auto) 21.3 % Monocytes (%) (Auto) 8.2 % Eosinophils (%) (Auto) 1.0 % Basophils (%) (Auto) 0.2 % Neutrophils # (Auto) 8.49 1.4-6.5 K/uL Lymphocytes # (Auto) 2.64 1.2-3.4 K/uL Monocytes # (Auto) 1.02 0.11-0.59 K/uL Eosinophils # (Auto) 0.12 0-0.5 K/uL Basophils # (Auto) 0.02 0-0.2 K/uL RDW Standard Deviation 47.3 36.4-46.3 fL RDW Coefficient of Variation 13.4 11.5-14.5 % Immature Granulocyte % (Auto) 0.9 % Immature Granulocyte # (Auto) 0.11 0.00-0.02 K/uL Prothrombin Time 10.0 9.0-12.0 SECONDS Prothromb Time International Ratio 1.0 0.9-1.1 Activated Partial Thromboplast Time 27.8 21.0-31.0 SECONDS Partial Thromboplastin Ratio 1.1 Sodium Level 140 136-145 mmol/L Potassium Level 3.8 3.5-5.1 mmol/L Chloride Level 105 98-107 mmol/L Carbon Dioxide Level 32 21-32 mmol/L Anion Gap 3.0 3-11 mmol/L Blood Urea Nitrogen 9 7-18 mg/dl Creatinine 0.83 0.60-1.40 mg/dl Est Creatinine Clear Calc Drug Dose 121.7 ml/min Estimated GFR () 116.4 Estimated GFR (Non- 100.5 BUN/Creatinine Ratio 11.3 10-20 Random Glucose 129 70-99 mg/dl Calcium Level 8.3 8.5-10.1 mg/dl Magnesium Level 2.0 1.8-2.4 mg/dl Total Bilirubin 0.4 0.2-1 mg/dl Aspartate Amino Transf (AST/SGOT) 26 15-37 U/L Alanine Aminotransferase (ALT/SGPT) 43 12-78 U/L Alkaline Phosphatase 96 45-117 U/L Troponin I < 0.015 0-0.045 ng/ml Pro-B-Type Natriuretic Peptide 42 0-900 pg/ml Total Protein 6.9 6.4-8.2 gm/dl Albumin 3.2 3.4-5.0 gm/dl Globulin 3.7 2.5-4.0 gm/dl Albumin/Globulin Ratio 0.9 0.9-2 Lipase 80 73-393 U/L Lactic Acid Level 1.6 0.4-2.0 mmol/L Microbiology Results 03/01/18 Blood Culture, Received Pending 03/01/18 Blood Culture, Received Pending Diagnostic Radiology CHEST ONE VIEW PORTABLE FINDINGS: Moderate increase in cardiac size. Prominent pulmonary vasculature. Deformity of the chest wall musculoskeletal structures which has been described previously. Components of congestive heart failure present. IMPRESSION: Congestive heart failure. The above report was generated using voice recognition software. It may contain grammatical, syntax or spelling errors. Electronically signed by: Sergey Levine M.D. 03/01/2018 9:16 PM Dictated Date/Time: 03/01/2018 9:16 PM . EKG EKG performed at 21:[address] at 105 / minute, baseline artifact, no apparent acute ST or T-wave changes. . Impression Assessment and Plan ACUTE ON CHRONIC HYPOXIC RESPIRATORY FAILURE Severe COPD, O2 and steroid dependent. May have restrictive lung disease as well due to scoliosis. Presented to ED in respiratory distress associated with hypoxia on supplemental oxygen. Hanna somewhat better after receiving IV steroids, nebulizer treatment, and BiPAP. Chest x-ray shows diffuse interstitial disease. May or may not have an infectious process. Consider pulmonary edema as discussed below. Influenza A/B PCR negative. Blood cultures obtained in ED. Received intravenous piperacillin/tazobactam. Continue piperacillin/tazobactam. Add azithromycin for atypical coverage and vancomycin for gram-positive coverage. May be able to discontinue vancomycin if MRSA screen is negative. IV methylprednisolone, initially 40 mg IV every 8 hours and taper as tolerated. Nebulizer treatments with levalbuterol/ipratropium. Consult Critical Care Medicine and Pulmonary Medicine. ? PULMONARY EDEMA Chest x-ray suggests diffuse pulmonary edema, but BNP normal. ? non-cardiac pulmonary edema. ? interstitial pneumonia or interstitial lung disease. ? ARDS Drinking large amounts of fluids, so may be fluid overloaded despite normal BNP. Diurese with caution. Check echo. Follow exam, labs, x-rays. SLEEP APNEA Continue CPAP / BiPAP. GERD Continue ranitidine. TOBACCO USE Importance of smoking cessation discussed. Patient is motivated and does not wish to use nicotine replacement products. VTE PROPHYLAXIS SQ enoxaparin. Ambulate. RESUSCITATION STATUS Full code. DISPOSITION Admit to ICU. Case discussed with ICU staff. Expected discharge to home. Pulmonary Medicine follow-up with Dr. Barker. . Resuscitation Status VTE Prophylaxis Will order VTE Prophylaxis: Yes
[2018-03-01] MEDS ORDERED: RANITIDINE HCL 150 MG TAB PO ONE (23:11)
[2018-03-01] MEDS ORDERED: GABAPENTIN 100 MG CAP PO ONE (23:11)
[2018-03-01] MEDS ORDERED: LEVALBUTEROL 0.63MG/3 ML NEB INH PRN (23:15)
[2018-03-01] MEDS ORDERED: AZITHROMYCIN IV 500 MG in DEXTROSE 5% 250ML 250 ML IV ONE (23:15)
[2018-03-01] MEDS ORDERED: PIPERACILL/TAZOBAC CONSULT ACTIVE PRN (23:15)
[2018-03-01 23:30] VITALS: BP 145/99; PULSE 125; O2SAT 97
[2018-03-01] MEDS ORDERED: POTASSIUM CHLORIDE 20 MEQ TABCR PO ONE (23:30)
[2018-03-01] MEDS ORDERED: FUROSEMIDE INJ 20 MG in SYRINGE 0 ML IV ONE (23:30)
[2018-03-01] MEDS ORDERED: ACETAMINOPHEN 500 MG TAB PO PRN (23:45)
--- NOTE | 2018-03-01 23:53 | EMERGENCY ROOM VISIT NOTE ---
History Report prepared by Romero: Jennifer Campos Under the Supervision of: Dr. Nate Acosta M.D. First contact with patient: 20:50 Chief Complaint: SHORTNESS OF BREATH Stated Complaint: SOB, CHEST PAIN History of Present Illness The patient is a 52 year old male who presents to the Emergency Room with complaints of worsening shortness of breath beginning the last couple of days. The patient reports getting short of breath while walking. He reports having chills, a dry cough, and chest pain, but denies having fevers, vomiting, and diarrhea. The patient also denies new swelling in his legs. He states that it hurts to cough and rates his chest pain at a 7/10. The patient states that when he has symptoms like this, he usually get double pneumonia. He reports that he has COPD. The patient reports that he wears 3L of Oxygen at home, and states that he has been increasing it. The patient states that he has nebulizers, CPAP , and inhalers and that he used a nebulizer earlier this morning. He denies alcohol use, recent travel, and a history of blood clots. The patient states that he takes prednisone and aspirin. Source of History: patient Onset: the last couple of days Position: other (generalized) Quality: other (shortness of breath ) Timing: worsening Associated Symptoms: + chills, + cough, + chest pain, No fevers, No vomiting , No diarrhea Note: denies: new swelling in his legs Review of Systems See HPI for pertinent positives & negatives. A total of 10 systems reviewed and were otherwise negative. Past Medical & Surgical Medical Problems: (1) Acute and chronic respiratory failure with hypoxia (2) Acute electrocardiogram changes (3) Asthma (4) Asthma exacerbation (5) Asthma, mild persistent (6) Calculus of kidney and ureter (7) Chronic back pain (8) Depression (9) Depression (10) Dyslipidemia (11) Dyslipidemia (12) Gastroesophageal reflux disease (13) GERD (gastroesophageal reflux disease) (14) Hypoxia (15) Influenza-like syndrome (16) Kidney stone (17) Left ureteral calculus (18) Migraine (19) Migraine (20) GRACIE (obstructive sleep apnea) (21) Pancreatitis (22) Pancreatitis (23) Scoliosis (24) Sleep disorder Surgical Problems: (1) H/O colonoscopy (2) History of back surgery (3) S/p fragment kidney stone by shock wave (4) S/P nasal surgery (5) S/P tonsillectomy (6) S/p ureteral stent placement (7) spinal surgery due to scoliosis Family History Diabetes mellitus FATHER FH: cancer BROTHER (lung CA) FH: heart disease FATHER (fatal [place]/stroke age 79) BROTHER (MA in early 50s) FH: kidney disease FHx: gallstones Hypertension Stroke FATHER Social History Smoking Status: Current Every Day Smoker Alcohol Use: none Drug Use: none Marital Status: Housing Status: lives with significant other Occupation Status: employed Current/Historical Medications Scheduled Amitriptyline Hcl (Amitriptyline Hcl), 75 MG PO HS Aspirin (Aspirin Ec), 325 MG PO DAILY Fish Oil ([place]-3), 2 CAP PO DAILY Gabapentin (Neurontin), 100 MG PO BID Ipratropium-Albuterol (Combivent Respimat), 1 PUFFS INH QID Levalbuterol (Levalbuterol), 1.25 MG INH Q4H Mometasone Furoate-Formoterol (Dulera 200/5 Mcg), 2 PUFFS INH BID Paroxetine Hcl (Paxil), 40 MG PO DAILY Pravastatin Sod (Pravastatin Sodium), 1 TAB PO HS Prednisone (Prednisone), 50 MG PO UD Prednisone (Prednisone), 5 MG PO UD Prednisone Tab (Prednisone), 10 MG PO TID Ranitidine HCl (Ranitidine HCl), 1 TAB PO BID Scheduled PRN Sumatriptan Succinate (Imitrex), 50 MG PO PRN PRN for Migraine Allergies Coded Allergies: No Known Allergies (Unverified , 03/01/18) Physical Exam Vital Signs Date Time Temp Pulse Resp B/P (MAP) Pulse Ox O2 Delivery O2 Flow Rate FiO2 03/01/18 22:34 126 160/98 94 BiPAP 03/01/18 22:23 Nasal Cannula 3.0 95 03/01/18 21:58 114 99 40 03/01/18 21:35 110 17 153/100 100 Nebulizer 03/01/18 21:30 107 03/01/18 20:44 36.4 116 30 164/106 94 Nasal Cannula 4.0 Physical Exam GENERAL: Patient is in mild distress. HEENT: No acute trauma, normocephalic atraumatic, mucous membranes moist, no nasal congestion, no scleral icterus. NECK: No stridor, no adenopathy, no meningismus, trachea is midline. LUNGS: Diminished breath sounds bilaterally. No wheezing or rhonchi. Increased respiratory rate with some mild respiratory distress. HEART: Tachycardic with regular rhythm. No murmurs. ABDOMEN: Soft, nontender, bowel sounds positive, no hernias, no peritonitis. EXTREMITIES: No cyanosis or edema, full range of motion of all the joints without pain or difficulty, no signs for acute trauma. NEUROLOGIC: Oriented x 3, no acute motor or sensory deficits, no focal weakness. SKIN: No rash, no jaundice, no diaphoresis. Medical Decision & Procedures ER Provider Diagnostic Interpretation: Radiology results as stated below per my review and radiologist interpretation: CHEST ONE VIEW PORTABLE CLINICAL HISTORY: EVALUATE RESPIRATORY DISTRESS.DYSPNEA COMPARISON STUDY: 2017 FINDINGS: Moderate increase in cardiac size. Prominent pulmonary vasculature. Deformity of the chest wall musculoskeletal structures which has been described previously. Components of congestive heart failure present. IMPRESSION: Congestive heart failure. The above report was generated using voice recognition software. It may contain grammatical, syntax or spelling errors. Electronically signed by: Sergey Levine M.D. 03/01/2018 9:16 PM Dictated Date/Time: 03/01/2018 9:16 PM Laboratory Results 03/01/18 21:10 Red Blood Count 3.97, Mean Corpuscular Volume 97.0, Mean Corpuscular Hemoglobin 33.0, Mean Corpuscular Hemoglobin Concent 34.0, Mean Platelet Volume 9.9, Neutrophils (%) (Auto) 68.4, Lymphocytes (%) (Auto) 21.3, Monocytes (%) (Auto) 8.2, Eosinophils (%) (Auto) 1.0, Basophils (%) (Auto) 0.2, Neutrophils # (Auto) 8.49, Lymphocytes # (Auto) 2.64, Monocytes # (Auto) 1.02, Eosinophils # (Auto) 0.12, Basophils # (Auto) 0.02 03/01/18 21:10 Test 03/01/18 21:10 03/01/18 21:15 White Blood Count 12.40 K/uL (4.8-10.8) Red Blood Count 3.97 M/uL (4.7-6.1) Hemoglobin 13.1 g/dL (14.0-18.0) Hematocrit 38.5 % (42-52) Mean Corpuscular Volume 97.0 fL (80-100) Mean Corpuscular Hemoglobin 33.0 pg (25-34) Mean Corpuscular Hemoglobin Concent 34.0 g/dl (32-36) Platelet Count 181 K/uL (130-400) Mean Platelet Volume 9.9 fL (7.4-10.4) Neutrophils (%) (Auto) 68.4 % Lymphocytes (%) (Auto) 21.3 % Monocytes (%) (Auto) 8.2 % Eosinophils (%) (Auto) 1.0 % Basophils (%) (Auto) 0.2 % Neutrophils # (Auto) 8.49 K/uL (1.4-6.5) Lymphocytes # (Auto) 2.64 K/uL (1.2-3.4) Monocytes # (Auto) 1.02 K/uL (0.11-0.59) Eosinophils # (Auto) 0.12 K/uL (0-0.5) Basophils # (Auto) 0.02 K/uL (0-0.2) RDW Standard Deviation 47.3 fL (36.4-46.3) RDW Coefficient of Variation 13.4 % (11.5-14.5) Immature Granulocyte % (Auto) 0.9 % Immature Granulocyte # (Auto) 0.11 K/uL (0.00-0.02) Prothrombin Time 10.0 SECONDS (9.0-12.0) Prothromb Time International Ratio 1.0 (0.9-1.1) Activated Partial Thromboplast Time 27.8 SECONDS (21.0-31.0) Partial Thromboplastin Ratio 1.1 Anion Gap 3.0 mmol/L (3-11) Est Creatinine Clear Calc Drug Dose 121.7 ml/min Estimated GFR () 116.4 Estimated GFR (Non- 100.5 BUN/Creatinine Ratio 11.3 (10-20) Calcium Level 8.3 mg/dl (8.5-10.1) Magnesium Level 2.0 mg/dl (1.8-2.4) Total Bilirubin 0.4 mg/dl (0.2-1) Aspartate Amino Transf (AST/SGOT) 26 U/L (15-37) Alanine Aminotransferase (ALT/SGPT) 43 U/L (12-78) Alkaline Phosphatase 96 U/L (45-117) Troponin I < 0.015 ng/ml (0-0.045) Pro-B-Type Natriuretic Peptide 42 pg/ml (0-900) Total Protein 6.9 gm/dl (6.4-8.2) Albumin 3.2 gm/dl (3.4-5.0) Globulin 3.7 gm/dl (2.5-4.0) Albumin/Globulin Ratio 0.9 (0.9-2) Lipase 80 U/L (73-393) Lactic Acid Level 1.6 mmol/L (0.4-2.0) Laboratory results reviewed by me. Medications Administered Medications (Trade) Dose Ordered Sig/Nemo Route Start Time Stop Time Status Last Admin Dose Admin Methylprednisolone Sodium Succinate (Solu-Medrol IV) 80 mg NOW STAT IV 03/01/18 20:57 03/01/18 21:00 DC 03/01/18 21:32 80 MG Albuterol/ Ipratropium (Duoneb) 3 ml NOW STAT INH 03/01/18 20:57 03/01/18 21:00 DC 03/01/18 21:31 3 ML Piperacillin Sod/ Tazobactam Sod (Zosyn Iv) 4.5 gm NOW STAT IV 03/01/18 20:57 03/01/18 21:00 DC 03/01/18 21:41 4.5 GM Nitroglycerin (Nitroglycerin 2% Oint) 2 inch NOW ONCE EXT 03/01/18 21:30 03/01/18 21:31 DC 03/01/18 21:33 2 INCH Furosemide (Lasix Inj) 40 mg NOW STAT IV 03/01/18 21:50 03/01/18 21:52 DC 03/01/18 22:07 40 MG Acetaminophen (Tylenol Tab) 1,000 mg NOW STAT PO 03/01/18 22:13 03/01/18 22:14 DC 03/01/18 22:34 1,000 MG ECG Per My Interpretation Indication: SOB/dyspnea Rate (beats per minute): 105 Rhythm: sinus tachycardia Findings: no ectopy, other (no ST elevations, no PVCs) ED Course 2053: The patient was evaluated in room C4. A complete history and physical exam was performed. 2056: Ordered Zosyn Iv 4.5 gm IV, Duoneb 3 ml INH, Methylprednisolone Sodium Succinate 80 mg IV. 2129: Ordered Nitroglycerin 2 inch EXT. 2149: Ordered Lasix Inj 40 mg IV. 2152: I checked on the patient as I was alerted by the nurse that he is having a harder time breathing. We will be giving him BiPAP. 2209: I checked on the patient and he looks more comfortable with the BiPAP. 2212: Ordered Tylenol Tab 1000 mg PO. 2213: Upon reexamination the patient is resting. I discussed results and treatment plan with the patient. He verbalizes agreement and understanding. [facility] We discussed the patient's results and findings. The patient will be evaluated by Dr. Redding for further management. Medical Decision The patient is a 52 year old male who presents to the ED with complaints of shortness of breath. Differential diagnoses considered include COPD exacerbation, pneumonia, pneumothorax, bronchitis, cardiac ischemia, anemia, PE , and CHF. There is a mild leukocytosis, this could be consistent with infection. No worrisome anemia. No significant electrolyte abnormality, kidney failure or hepatitis. No pancreatitis. Lactic acid level is not elevated making sepsis less likely. EKG shows a sinus tachycardia, no acute ischemia. Cardiac enzyme testing 1 is not consistent with acute cardiac injury. BNP is not elevated. Blood cultures are pending. Chest film shows what appears to be fluid overload , no focal pneumonia, no pneumothorax. The patient presents in some respiratory distress. He was given a DuoNeb, IV Solu-Medrol, IV Zosyn. He received nitroglycerin paste and IV Lasix. He still was short of breath and seemed to be struggling. He was eventually placed on BiPAP. The BiPAP helped greatly. The patient presents with respiratory distress. I do believe he has acute bronchitis with a flare of his COPD. There may be some fluid overload here as well. The patient requires a hospital stay given the amount of dyspnea and the amount of distress he was exhibiting. I did speak to the patient and case management. The on-call hospitalist was consulted. Patient does seem to be improving since being treated here in our ED. Medication Reconcilliation Current Medication List: was personally reviewed by me Blood Pressure Screening Patient's blood pressure: Elevated blood pressure Blood pressure disposition: Referred to PCP will be monitored by the hospitalist Consults Time Called: 2153 Consulting Physician: Dr. Song Returned Call: [id number] Discussed the patient's case. The patient will be evaluated for further management. Impression Primary Impression: Respiratory distress Additional Impressions: Acute bronchitis COPD exacerbation Critical Care I have personally spent greater than 40 minutes of critical care time in the direct management of this patient. This includes bedside care, interpretation of diagnostic studies, and testing, discussion with consultants, patient, and family members, and other required patient management activities. This 40 minutes is in excess of all separately billable procedures. Scribe Attestation The scribe's documentation has been prepared under my direction and personally reviewed by me in its entirety. I confirm that the note above accurately reflects all work, treatment, procedures, and medical decision making performed by me. Departure Information Dispostion Being Evaluated By Hospitalist Referrals Brina Sweeney M.D. (MEDICAL) (PCP) Patient Instructions My [facility] Problem Qualifiers
[2018-03-01 23:59] VITALS: BP 145/99; PULSE 125; TEMP 36.9; O2SAT 94; BMI 31.3
[2018-03-02] VITALS (24 sets, daily range): BP systolic 102–145; BP diastolic 70–104; PULSE 69–121; TEMP 36.6–36.9; O2SAT 88–97
[2018-03-02 01:29] LABS: INFLUENZA A PCR Neg for Influ A (NEG); INFLUENZA B PCR Neg for Influ B (NEG)
--- NOTE | 2018-03-02 02:23 | Critical Care Consultation ---
Critical Care Consultation Date of Consultation: Mar 02, 2018. Attending Physician: Barbara Bean M.D. Reason for Consultation: Respiratory Distress History of Present Illness Anuel Winchester is a 52-year-old oxygen dependent asthmatic/COPD. Patient was admitted after presenting to the emergency room for room for worsening shortness of breath times a few days. He admits to requiring increasing amounts of oxygen at home as well as pleuritic chest pain and cough. Increasing DICKINSON over the last few days. Patient states his current symptoms are similar to prior when he entered the hospital in September with a double pneumonia; however, he does state that that time was much worse than now. Patient states that he does suffer some COPD and he does continue to smoke half a pack of cigarettes per day. Patient has at home use of nebulizer and CPAP. Patient has denied systemic symptoms such as fever, chills, myalgia, vomiting or diarrhea. No evidence of DVT symptoms such as leg swelling, redness or pain. Patient denies prior history of blood clots. Patient is followed by residential mortgage underwriter Dr. Barker. Patient is chronically on 85mg of p.o. prednisone daily, Xopenex nebulizer,Combivent-respimat. Upon entering the ICU, pt states he feels much better. Chest pain is resolved. He reported was removing his Bipa repetitively in the ED and does not wish to wear it. Pt is currently on 5L Oxymask and saturating in in the low 90's. The patient denies weight loss, fever, dizziness, headache, muscle weakness, numbness, change in vision, sore throat, palpitations, awareness of tachyarrhythmias, leg swelling, nausea, vomiting, bloody stools, diarrhea, constipation, abdominal pain, other changes in urine or bowel habits. Past Medical/Surgical History Medical Problems: Acute and chronic respiratory failure with hypoxia Acute electrocardiogram changes Asthma, mild persistent Calculus of kidney and ureter Chronic back pain Depression Dyslipidemia GERD (gastroesophageal reflux disease) Hypoxia Influenza-like syndrome Kidney stone Left ureteral calculus Migraine GRACIE (obstructive sleep apnea) Pancreatitis Scoliosis Sleep disorder Surgical Problems: H/O colonoscopy History of back surgery S/p fragment kidney stone by shock wave S/P nasal surgery S/P tonsillectomy S/p ureteral stent placement spinal surgery due to scoliosis Family History Diabetes mellitus FATHER FH: cancer BROTHER (lung CA) FH: heart disease FATHER (fatal [place]/stroke age 79) BROTHER ([place] in early 50s) FH: kidney disease FHx: gallstones Hypertension Stroke FATHER Social History Smoking Status: Current Every Day Smoker Alcohol Use: occasionally Drug Use: none Marital Status: Housing Status: lives with significant other Occupation Status: employed Allergies Coded Allergies: No Known Allergies (Unverified , 03/01/18) Home Medications Scheduled Amitriptyline Hcl (Amitriptyline Hcl), 75 MG PO HS Aspirin (Aspirin Ec), 325 MG PO DAILY Fish Oil ([place]-3), 2 CAP PO DAILY Gabapentin (Neurontin), 100 MG PO BID Ipratropium-Albuterol (Combivent Respimat), 1 PUFFS INH QID Levalbuterol (Levalbuterol), 1.25 MG INH Q4H Mometasone Furoate-Formoterol (Dulera 200/5 Mcg), 2 PUFFS INH BID Paroxetine Hcl (Paxil), 40 MG PO DAILY Pravastatin Sod (Pravastatin Sodium), 1 TAB PO HS Prednisone (Prednisone), 50 MG PO UD Prednisone (Prednisone), 5 MG PO UD Prednisone Tab (Prednisone), 10 MG PO TID Ranitidine HCl (Ranitidine HCl), 1 TAB PO BID Scheduled PRN Sumatriptan Succinate (Imitrex), 50 MG PO PRN PRN for Migraine Current Inpatient Medications Current Inpatient Medications Medications (Trade) Dose Ordered Sig/Nemo Route Start Time Stop Time Status Last Admin Dose Admin Miscellaneous Information (Icu Protocol For Hyperglycemia) 1 ea PRN PRN N/A 03/01/18 22:45 03/03/18 22:44 Aspirin (Ecotrin Tab) 325 mg DAILY PO 03/02/18 09:00 04/01/18 08:59 Gabapentin (Neurontin Cap) 100 mg BID PO 03/02/18 09:00 04/01/18 08:59 Paroxetine HCl (pAXil TAB) 40 mg DAILY PO 03/02/18 09:00 04/01/18 08:59 Pravastatin Sodium (Pravachol Tab) 40 mg HS PO 03/02/18 21:00 04/01/18 20:59 Ranitidine HCl (zANTac TAB) 300 mg BID PO 03/02/18 09:00 04/01/18 08:59 Furosemide 20 mg/ Syringe 2 ml @ 4 mls/min BID IV 03/02/18 09:00 04/01/18 08:59 Potassium Chloride (Klor-Con Tab) 20 meq BID PO 03/02/18 09:00 04/01/18 08:59 Methylprednisolone Sodium Succinate 40 mg/Syringe 0.64 ml @ 1.5 mls/min Q8H IV 03/02/18 04:00 04/01/18 03:59 Levalbuterol (Xopenex 0.63 Mg/ 3 Ml Neb) 0.63 mg Q4H PRN INH 03/01/18 23:15 03/31/18 23:14 03/02/18 01:58 0.63 MG Azithromycin (Zithromax Tab) 500 mg DAILY@2100 PO 03/02/18 21:00 03/09/18 20:59 Piperacillin Sod/ Tazobactam Sod 4.5 gm/Dextrose 120 ml @ 30 mls/hr Q8H IV 03/02/18 04:00 03/09/18 03:59 Miscellaneous Information (Consult) 1 ea UD PRN N/A 03/01/18 23:15 03/31/18 23:14 Ipratropium Bernie (Atrovent 0.02% 0.5MG/2.5ML Neb) 0.5 mg QIDR INH 03/02/18 08:00 04/01/18 07:59 Levalbuterol (Xopenex 1.25MG/ 0.5ML Neb) 1.25 mg QIDR INH 03/02/18 08:00 04/01/18 07:59 Enoxaparin Sodium (Lovenox Inj) 40 mg QAM SQ 03/02/18 09:00 04/01/18 08:59 Acetaminophen (Tylenol Tab) 1,000 mg Q8H PRN PO 03/01/18 23:45 03/31/18 23:44 Review of Systems 12 systems reviewed and negative other than previously mentioned in the HPI. Physical Exam Date Time Temp Pulse Resp B/P (MAP) Pulse Ox O2 Delivery O2 Flow Rate FiO2 03/02/18 01:59 99 22 93 Mask 5.0 03/02/18 01:00 105 19 128/75 (91) 97 03/02/18 00:00 112 19 142/87 (105) 93 03/01/18 23:59 36.9 125 22 145/99 94 Mask 5.0 03/01/18 23:30 125 20 145/99 (112) 97 03/01/18 23:00 122 25 135/95 (106) 95 03/01/18 22:34 126 160/98 94 BiPAP 03/01/18 22:23 Nasal Cannula 3.0 95 03/01/18 21:58 114 99 40 03/01/18 21:35 110 17 153/100 100 Nebulizer 03/01/18 21:30 107 03/01/18 20:44 36.4 116 30 164/106 94 Nasal Cannula 4.0 Vital Signs - as noted Laboratory Data - as noted Physical Exam: General - Mild distress, breathing very fast, sitting at edge of bed with non- rebreather in place Eyes - PERRL, EOMI No icterus, gaze conjugate ENT - Mucosa moist, no lesions or candidiasis Neck - Supple, trachea midline, no masses or lymphadenopathy, no JVD or bruits Lungs - No paradoxical chest wall movement, clear to auscultation bilaterally, no wheezes or rhonchi; Rales noted at the left base Heart - Sinus tachycardia, No murmur, rubs, clicks, or gallops appreciated Abdomen - normoactive BS present, no bruits noted, tympanic to percussion, soft , nontender, nondistended, no organomegaly Extremities - No edema, pedal pulses intact Neuro - A&OX3 Strength extremities equal and appropriate bilaterally Reflexes: Normal and equal Skin: Large scar from prior spinal incision noted on back CN:PERRL, EOMI, no facial asymmetry, uvula/tongue midline Laboratory Results Last 24 Hours Test 03/01/18 21:10 03/01/18 21:15 03/01/18 23:55 03/01/18 23:59 White Blood Count 12.40 K/uL Red Blood Count 3.97 M/uL Hemoglobin 13.1 g/dL Hematocrit 38.5 % Mean Corpuscular Volume 97.0 fL Mean Corpuscular Hemoglobin 33.0 pg Mean Corpuscular Hemoglobin Concent 34.0 g/dl Platelet Count 181 K/uL Mean Platelet Volume 9.9 fL Neutrophils (%) (Auto) 68.4 % Lymphocytes (%) (Auto) 21.3 % Monocytes (%) (Auto) 8.2 % Eosinophils (%) (Auto) 1.0 % Basophils (%) (Auto) 0.2 % Neutrophils # (Auto) 8.49 K/uL Lymphocytes # (Auto) 2.64 K/uL Monocytes # (Auto) 1.02 K/uL Eosinophils # (Auto) 0.12 K/uL Basophils # (Auto) 0.02 K/uL RDW Standard Deviation 47.3 fL RDW Coefficient of Variation 13.4 % Immature Granulocyte % (Auto) 0.9 % Immature Granulocyte # (Auto) 0.11 K/uL Prothrombin Time 10.0 SECONDS Prothromb Time International Ratio 1.0 Activated Partial Thromboplast Time 27.8 SECONDS Partial Thromboplastin Ratio 1.1 Sodium Level 140 mmol/L Potassium Level 3.8 mmol/L Chloride Level 105 mmol/L Carbon Dioxide Level 32 mmol/L Anion Gap 3.0 mmol/L Blood Urea Nitrogen 9 mg/dl Creatinine 0.83 mg/dl Est Creatinine Clear Calc Drug Dose 121.7 ml/min Estimated GFR () 116.4 Estimated GFR (Non- 100.5 BUN/Creatinine Ratio 11.3 Random Glucose 129 mg/dl Calcium Level 8.3 mg/dl Magnesium Level 2.0 mg/dl Total Bilirubin 0.4 mg/dl Aspartate Amino Transf (AST/SGOT) 26 U/L Alanine Aminotransferase (ALT/SGPT) 43 U/L Alkaline Phosphatase 96 U/L Troponin I < 0.015 ng/ml Pro-B-Type Natriuretic Peptide 42 pg/ml Total Protein 6.9 gm/dl Albumin 3.2 gm/dl Globulin 3.7 gm/dl Albumin/Globulin Ratio 0.9 Lipase 80 U/L Lactic Acid Level 1.6 mmol/L Influenza Type A (RT-PCR) Neg for Influ A Influenza Type B (RT-PCR) Neg for Influ B Bedside Glucose 140 mg/dl Diagnostic Results CHEST ONE VIEW PORTABLE CLINICAL HISTORY: EVALUATE RESPIRATORY DISTRESS.DYSPNEA COMPARISON STUDY: 2017 FINDINGS: Moderate increase in cardiac size. Prominent pulmonary vasculature. Deformity of the chest wall musculoskeletal structures which has been described previously. Components of congestive heart failure present. IMPRESSION: Congestive heart failure. The above report was generated using voice recognition software. It may contain grammatical, syntax or spelling errors. Electronically signed by: Sergey Levine M.D. 03/01/2018 9:16 PM Dictated Date/Time: 03/01/2018 9:16 PM Assessment & Plan (1) Respiratory distress (2) Acute and chronic respiratory failure with hypoxia (3) Dyslipidemia (4) Depression (5) Asthma, mild persistent Reason Critically Ill: Patient is an 52-year-old male who is transferred to the ICU for acute on chronic respiratory failure with noted hypoxia and respiratory distress. PLAN: Neuro: * Chronic Pain * Continue Gabapentin * Depression * Continue Paxil Resp: * Asthma versus COPD excerbation versus CHF * No wheezing on physical exam * No significant consolidation on CXR or rhonchi noted on exam * CXR demonstrates fluid overload, IV Lasix now * Consult Dr. Barker's Service, pt followed by [facility] * Check Procalcitonin * Hypoxia noted in ED, improving * Titrate FIO2, Goal 88-92% * Continue respiratory regimen * CXR in AM CV: * Dyslipidemia * Continue Statin * Continue home ASA * Vascular Overload noted on CXR with Neg BNP * ECHO in AM * Troponin Neg * Hemodynamically stable now * EKG: sinus tach with QTc of 420 Fluids/Renal: * Cr: 0.83 * Daily PRP * Nemo'd Lasix for fluid overload * No willams to gravity at this time * Negative I&Os goal ID: * Procalcitonin in AM * Leukocytosis noted, Afebrile * Zosyn IV, Azithro PO * Chronic Steroid use converted to IV: Solumedrol 40mg q8h * Will need to taper to home dosing * Pulm source versus fluid overload, continue to monitor * Blood Cultures Pending * Influenza Negative GI/Nutrition: * GERD * Continue H2 Cecelia * Diet in place * LFTs unremarkable * Albumin Low Heme: * H&H 13.1/38.5 * Repeat CBC * No gross signs of bleeding * Plts 181 * Coag: WNL * DVT Prophylaxis: Lovenox 40mg qAM Endocrine: * Accu-Checks per protocol, started insulin infusion for 2 blood sugars greater than 180 Access: Maintain 2 PIVs CCT: 45 Minutes; This time is exclusive of all separately billable procedures. Thank you for involving us in the care of this patient. Please refer to Dr. Serafin London's addendum for further recommendations. I have reviewed Karen Ellis's documentation and agree with the above
[2018-03-02] MEDS: METHYLPREDNISOLONE IV 40 MG in SYRINGE 0 ML IV SCH ×2 (03:51→12:29)
[2018-03-02] MEDS: PIPERACILL/TAZOBAC IV 4.5 GM in DEXTROSE 5% 100ML 100 ML IV SCH ×3 (03:51→19:59)
[2018-03-02 05:19] LABS: BASO % 0.1 %; BASO ABS # 0.01 K/uL (0-0.2); HEMATOCRIT 38.2 % (42-52); HEMOGLOBIN 12.8 g/dL (14.0-18.0); IG# 0.13 K/uL (0.00-0.02); LYMPH % 8.8 %; LYMPH ABS # 1.36 K/uL (1.2-3.4); MEAN CELL VOLUME 94.6 fL (80-100); MEAN CORPUSCULAR HEMOGLOBIN 31.7 pg (25-34); MEAN CORPUSCULAR HGB CONC 33.5 g/dl (32-36); MEAN PLATELET VOLUME 9.8 fL (7.4-10.4); MONO % 3.2 %; NEUT % 87.1 %; NEUT ABS # 13.42 K/uL (1.4-6.5); PLATELET COUNT 182 K/uL (130-400); RED CELL DISTRIBUTION WIDTH CV 13.4 % (11.5-14.5); RED CELL DISTRIBUTION WIDTH SD 46.3 fL (36.4-46.3); WHITE BLOOD COUNT 15.42 K/uL (4.8-10.8)
[2018-03-02 05:41] LABS: CALCIUM 8.3 mg/dl (8.5-10.1); CREATININE 0.91 mg/dl (0.60-1.40); PHOSPHORUS 3.5 mg/dl (2.5-4.9); POTASSIUM 4.2 mmol/L (3.5-5.1)
[2018-03-02] MEDS: IPRATROPIUM BROMIDE NEB SOLN 0.02% 2.5 ML VIAL INH SCH ×4 (07:01→19:04)
[2018-03-02] MEDS: LEVALBUTEROL 1.25MG/0.5ML NEB INH SCH ×4 (07:01→19:04)
[2018-03-02] MEDS: FUROSEMIDE INJ 20 MG in SYRINGE 0 ML IV SCH ×2 (07:51→20:38)
[2018-03-02] MEDS: ASPIRIN 325 MG ECTAB PO SCH (07:51)
[2018-03-02] MEDS: PAROXETINE 20 MG TAB PO SCH (07:52)
[2018-03-02] MEDS: GABAPENTIN 100 MG CAP PO SCH ×2 (07:52→20:39)
[2018-03-02] MEDS: ENOXAPARIN 40 MG/0.4 ML SYR SQ SCH (07:53)
[2018-03-02] MEDS: RANITIDINE HCL 150 MG TAB PO SCH ×2 (07:53→20:40)
[2018-03-02] MEDS ORDERED: LEVALBUTEROL/IPRATROPIUM NEB INH SCH (08:00)
--- NOTE | 2018-03-02 08:44 | DIAGNOSTIC IMAGING REPORT ---
CHEST ONE VIEW PORTABLE HISTORY: 52 years-old Male respiratory failure acute respiratory failure COMPARISON: Chest radiograph 03/01/2018, CTA of the chest 10/07/2017 TECHNIQUE: Portable AP view of the chest FINDINGS: Unchanged cardiomegaly. No pneumothorax or large pleural effusion. Pulmonary vascular congestion with bilateral mixed interstitial and alveolar opacities are again noted, slightly worsened on the left. Marked sigmoidal scoliosis with chest wall deformity and chronic rib deformities redemonstrated. IMPRESSION: Cardiomegaly with mixed interstitial and alveolar opacities bilaterally, slightly worsened on the left. Findings suggest asymmetric pulmonary edema or multifocal pneumonia. The above report was generated using voice recognition software. It may contain grammatical, syntax or spelling errors. Electronically signed by: Bonifacio Fishman M.D. 03/02/2018 8:42 AM Dictated Date/Time: 03/02/2018 8:39 AM
--- NOTE | 2018-03-02 08:50 | ECHOCARDIOGRAM REPORT ---
*NOTICE TO RECEIVING REPUBLICAN AGENCY This information is strictly Confidential and protected under [place] law. [place] law prohibits you from making any further disclosure of this information unless further disclosure is expressly permitted by the written consent of the person to whom it pertains or is authorized by law. A general authorization for the release of medical or other information is not sufficient for this purpose. Hospital accepts no responsibility if the information is made available to any other person, INCLUDING THE PATIENT. Interpretation Summary * Name: LELO CONCEPCION Study Date: 03/02/2018 06:24 AM BP: 122/89 mmHg * Patient Location: .MSICU\S\E104\S\1 HR: 85 * : 1965 (M/d/yyyy) Gender: Male Height: 70 in * Age: 52 yrs Ethnicity: [place] Weight: 219 lb * Ordering Physician: Mateo Redding * Performed By: Anastasia Vela RDCS * * Reason For Study: POSSIBLE PULMONARY EDEMA * BSA: 2.2 m2 * -- Conclusions -- * Normal LV chamber size and wall thickness. * Normal LV systolic function, EF 65-70%. * No segmental left ventricular wall motion abnormalities are noted. * Grade I diastolic dysfunction. * Poorly visualized RV. * No significant valvular pathology. Procedure Details * A complete two-dimensional transthoracic echocardiogram was performed (2D, M-mode, Doppler and color flow Doppler). * The study was technically difficult. * There were technical limitations due to patient'sinability to cooperate * A contrast injection of Definity was performed to improve assessment of LV function. * Contrast was injected into an intravenous site in the left arm. * One vial of Definity ultrasound contrast was diluted in normal saline to a total volume of 10 ml. A total of '3' ml of solution was administered during imaging. * Lot # [id number] of Definity utilized for procedure. * Expiration date 01/12. * The attending nurse who injected the contrast agent was RADHA VILLEDA RN. Left Ventricle * The left ventricle is normal in size. * There is normal left ventricular wall thickness. * Ejection Fraction = 65-70%. * Left ventricular systolic function is normal. * No segmental left ventricular wall motion abnormalities are noted. * The left ventricular wall motion is normal. Right Ventricle * The right ventricle is not well visualized. Atria * The left atrial size is normal. * Right atrium not well visualized. Mitral Valve * The mitral valve is normal in structure and function. Tricuspid Valve * The tricuspid valve is not well visualized. * There is no tricuspid stenosis. * No tricuspid regurgitation. Aortic Valve * The aortic valve is normal in structure and function. Pulmonic Valve * The pulmonary valve is not well seen, but the Doppler examination is normal without significant regurgitation or stenosis. Great Vessels * The aortic root is normal size. Pericardium/Pleural * There is no pericardial effusion. Left Ventricular Diastolic Function * Grade I diastolic dysfunction, (abnormal relaxation pattern). MMode 2D Measurements and Calculations IVSd 0.94 cm IVSs 1.0 cm LVIDd 3.9 cm LVIDs 2.4 cm LVPWd 0.74 cm LVPWs 1.5 cm IVS/LVPW 1.3 FS 38.0 % EDV(Teich) 67.2 ml ESV(Teich) 21.0 ml EF(Teich) 68.8 % EDV(cubed) 60.8 ml ESV(cubed) 14.5 ml EF(cubed) 76.1 % % IVS thick 10.4 % % LVPW thick 102.8 % LV mass(C)d 97.1 grams LV mass(C)dI 44.7 grams/m\S\2 LV mass(C)s 91.3 grams LV mass(C)sI 42.1 grams/m\S\2 SV(Teich) 46.2 ml SI(Teich) 21.3 ml/m\S\2 SV(cubed) 46.3 ml SI(cubed) 21.3 ml/m\S\2 asc Aorta Diam 2.8 cm LVOT diam 2.0 cm LVOT area 3.2 cm\S\2 LVAd ap4 34.9 cm\S\2 LVLd ap4 8.5 cm EDV(MOD-sp4) 114.5 ml EDV(sp4-el) 121.1 ml LVAs ap4 17.7 cm\S\2 LVLs ap4 7.2 cm ESV(MOD-sp4) 35.6 ml ESV(sp4-el) 36.5 ml EF(MOD-sp4) 68.9 % EF(sp4-el) 69.8 % LVAd ap2 37.8 cm\S\2 LVLd ap2 10.0 cm EDV(MOD-sp2) 117.0 ml EDV(sp2-el) 121.6 ml LVAs ap2 18.5 cm\S\2 LVLs ap2 8.0 cm ESV(MOD-sp2) 35.5 ml ESV(sp2-el) 36.4 ml EF(MOD-sp2) 69.6 % EF(sp2-el) 70.1 % LVLd %diff 14.5 % EDV(MOD-bp) 124.3 ml LVLs %diff 9.5 % ESV(MOD-bp) 37.0 ml EF(MOD-bp) 70.2 % SV(MOD-sp4) 78.8 ml SI(MOD-sp4) 36.3 ml/m\S\2 SV(MOD-sp2) 81.5 ml SI(MOD-sp2) 37.6 ml/m\S\2 SV(MOD-bp) 87.3 ml SI(MOD-bp) 40.2 ml/m\S\2 SV(sp4-el) 84.6 ml SI(sp4-el) 39.0 ml/m\S\2 SV(sp2-el) 85.2 ml SI(sp2-el) 39.3 ml/m\S\2 Doppler Measurements and Calculations MV E max ivory 74.3 cm/sec MV A max ivory 82.9 cm/sec MV E/A 0.90 MV dec time 0.27 sec Ao V2 max 118.2 cm/sec Ao max PG 5.6 mmHg Ao max PG (full) 1.2 mmHg FRANCESCA(V,A) 2.8 cm\S\2 FRANCESCA(V,D) 2.8 cm\S\2 LV V1 max PG 4.4 mmHg LV V1 max 104.4 cm/sec PA V2 max 88.4 cm/sec PA max PG 3.1 mmHg
[2018-03-02] MEDS ORDERED: POTASSIUM CHLORIDE 20 MEQ TABCR PO SCH (09:00)
[2018-03-02] MEDS: POTASSIUM CHLORIDE 20 MEQ TABCR PO SCH ×2 (09:54→20:39)
[2018-03-02] MEDS ORDERED: INSULIN ASPART 100 UNITS/ML 3 ML PEN SC SCH (12:30)
[2018-03-02] MEDS ORDERED: DEXTROSE 50% 50 ML SYR IV PRN (12:45)
[2018-03-02] MEDS ORDERED: GLUCOSE 10 TABS/TUBE PO PRN (12:45)
[2018-03-02] MEDS ORDERED: CARBOHYDRATES FOR HYPOGLYCEMIA PO PRN (12:45)
[2018-03-02] MEDS ORDERED: GLUCOSE 40% GEL 15 GM TUBE PO PRN (12:45)
[2018-03-02] MEDS ORDERED: PHARMACY GLYCEMIC MGMT CONSULT PRN (12:45)
[2018-03-02] MEDS ORDERED: GLUCAGON FOR INJ 1 MG VIAL IM PRN (12:45)
--- NOTE | 2018-03-02 13:25 | Pulmonary Consultation ---
History General Date of Service: Mar 02, 2018. Stated Complaint: Acute And Chronic Respiratory Failure W Hypoxia HPI The patient is a 52 year old male who presents to [facility] with complaints of Acute And Chronic Respiratory Failure W Hypoxia. The patient' s primary care provider is No Doctor, Assigned. 52-year-old gentleman admitted for hypoxic respiratory insufficiency. Patient has a PMHx includes: Asthma, Hypersensitivity Pneumonitis, GRACIE, h/o pancreatitis , HLD, GERD, and tobacco use 25-30 pack-year (7-10 cigarettes daily times 40 years), steroid induced myopathy. Over the past year the patient has been diagnosed with hypersensitivity pneumonitis for full details please refer below. He notes on Tuesday of this week started to experience a cough and some minimal shortness of breath that appeared to be handled well with Advil and is inhalers. He did well on Tuesday with no cough or shortness of Breath. On Tuesday he began to notice progressive cough and shortness of Breath until the time he was so tachypneic he required ED evaluation. During that time he did note a dry nonproductive cough but denies: Fever, chills, productive cough , unintentional weight loss, night sweats, hemoptysis, pleurisy or classic cardiac chest pain. Patient was initially diagnosed with asthma in 2006 symptomatic of wheeze and dyspnea initially controlled with PRN albuterol. September 2016 he developed symptoms of cough and hypoxia. CT Chest 09/2016: bilateral ground-glass changes. He was treated for acute pneumonia/pneumonitis with improvement. 2016 he was admitted with cough and hypoxia after failure of outpatient ABX + prednisone. CT chest 01/2017: diffuse bilateral ground-glass and peripheral reticular changes. Echocardiogram: unremarkable- his symptoms were believed to be 2/2 hypersensitivity pneumonitis secondary to mold/mildew burden - exposure in his home. Several as family members also reported respiratory symptoms. Hypersensitivity panel + Cladosporium IgG. He was prescribed levofloxacin and steroid taper on discharge then Symbicort 160 BID with improvement post discharge. CT chest 05/02/2017: x 2 stable pulmonary nodules largest: 5mm - left - no adenopathy. Enlarged calcified right hilar lymph node. Interval improvement in previously GG opacities. Persistent subpleural reticulation in the upper lung zones predominantly. 06/2017 bronchoscopy + 80% EDAC: bronchus intermedius and throughout most of the right bronchial tree as well as 60% EDAC of the left mainstem bronchus and 80% EDAC in the posterior wall of the LLL. Negative AFB, nL [place] and a CD4/CD8 ratio < 1.21. 09/2017 he was admitted to [facility] with bilateral pneumonia and hypoxic exacerbation of an asthma requiring antibiotics, steroid, bronchodilator, and BiPAP. He and his attribute symptoms to exposure when taking down their artificial [place] which had been stored in their prior home (location of prior mold/mildew exposure. Inpatient ABG 7.39/40/76-BiPAP/24. Influenza negative. CTA (reviewed) progressive bilateral ground-glass pulmonary airspace opacities. Asymmetrical lung volume secondary to scoliosis. Mild subpleural reticulation. Mild hepatic steatosis. No evidence of filling defects. He was discharged on steroid taper 60mg as well as Flovent (prior Symbicort prescription had not been documented), and 2LPM O2 with exertion. He is currently prescribed Dulera 200/5: 2 puffs BID and levalbuterol QID nebulized. He does have a Combivent inhaler as well. Admitted to [facility] from 12/01/2017 through 12/02/2017 with steroid induced myopathy. Current in hospital workup AB.45/43/60/30 (5L) WBC: 15K Albumin: 3.2 Procalcitonin: 0.10 EKG: Sinus tachycardia rate 105 CXR: Bilateral hilar fullness with peribronchial cuffing and cephalization Echocardiogram 03/02/2018 Left ventricle: EF=65-70%, LVH, Right ventricle: Poorly visualized Grade 1 diastolic dysfunction Previous workup Bronchial washing 07/18/2017: Yeast species o CD4/CD8: 1.21 Hypersensitivity panel 01/30/2017: Cladosporium herbar IgG Blood Eosinophil %7.9 (10/19/16) Blood Eosinophil %2.8 (08/30/17) PmHx: 1. Asthma 2. Hypersensitivity pneumonitis/currently steroid dependent 3. Hypercholesterolemia 4. Kyphosis of thoracolumbar region 5. Mixed restrictive and obstructive lung disease 6. Nephrolithiasis 7. Obstructive sleep apnea of adult ( 8. Ureteral stone 9. Migraine headaches PsHx: 1. Back Surgery 2. Nose Surgery 3. Renal Lithotripsy Family History 1. Diabetes Mellitus 2. Heart Disease 3. Hypertension 4. Lung Cancer Social History Denied: History of Alcohol Use Current every day smoker Marital History - Currently Denied: History of Tobacco Use occupation: Currently on medical leave Outpatient medications 1. Combivent Respimat 20-100 MCG/ACT Inhalation Aerosol Solution; INHALE QID 2. Levalbuterol HCl - 1.25 MG/3ML Inhalation Nebulization Solution; USE 1 VIAL IN 3. NEBULIZER EVERY 6 HOURS 4. Dulera 200-5 MCG/ACT Inhalation Aerosol; INHALE 2 PUFFS TWICE DAILY. RINSE 5. Ipratropium [place] 0.02 % Inhalation Solution; 1 unit dose in nebulizer mixed with 6. levalbuterol inhaled every 4-hours as needed for shortness of breath; 7. PredniSONE 15MG qd 8. Amitriptyline HCl - 50 MG Oral Tablet; TAKE 1 TABLET AT BEDTIME; 9. Aspirin 325 MG Oral Tablet; TAKE 1 TABLET DAILY; 10. Fish Oil CAPS 11. Gabapentin 100 MG Oral Capsule; TAKE 1 CAPSULE TWICE DAILY; 12. Imitrex 50 MG Oral Tablet; TAKE 1 TABLET FOR MIGRAINE RELIEF. MAY REPEAT EVERY 13. Paxil 40 MG Oral Tablet; TAKE 1 TABLET DAILY 14. Pravastatin Sodium 40 MG Oral Tablet; TAKE 1 TABLET AT BEDTIME; 15. RaNITidine HCl - 300 MG Oral Tablet; TAKE 1 TABLET DAILY DIRECTED Allergies 1. No Known Drug Allergies Historian: patient, EMS Review of Systems Eyes: reports: no symptoms ENT: reports: no symptoms Cardiovascular: reports: as stated in HPI Respiratory: reports: as stated in HPI Gastrointestinal: reports: no symptoms Genitourinary - Male: reports: no symptoms Musculoskeletal: reports: no symptoms Integumentary: reports: no symptoms Neurologic: reports: no symptoms Psychiatric: reports: no symptoms Endocrine: no symptoms Hematologic / Lymphatic: no symptoms Allergic / Immunologic: no symptoms Past Medical History Past Medical History: Please refer to HPI Past Medical History: migraines Past Surgical History: Please refer to HPI Family History Diabetes mellitus FATHER FH: cancer BROTHER (lung CA) FH: heart disease FATHER (fatal [place]/stroke age 79) BROTHER ([place] in early 50s) FH: kidney disease FHx: gallstones Hypertension Stroke FATHER Please refer to HPI Social History Please refer to HPI Hx Tobacco Use In Past Year?: Yes Smoking Status: Current Every Day Smoker Marital status: Housing status: lives with family Occupational Status: employed Immunizations History of Influenza Vaccine: Yes History of Tetanus Vaccine?: Yes History of Pneumococcal: Yes History of Hepatitis B Vaccine: Yes History of MDRO History of MDRO: No Allergies Coded Allergies: No Known Allergies (Unverified , 03/01/18) Current Medications Reported Home Medications Medications Dose Route/Sig Max Daily Dose Days Date Category Dose Instructions Prednisone 5 Mg Tab 5 Mg PO UD 03/01/18 Reported Aspirin Ec (Aspirin) 325 Mg Tab 325 Mg PO DAILY 03/01/18 Reported Dulera 200/5 Mcg (Mometasone Furoate-Formoterol) 1 Aer Aer 2 Puffs INH BID 12/01/17 Reported Levalbuterol 1.25 Mg/0.5 Ml Nebu 1.25 Mg INH Q4H 12/01/17 Reported Combivent Respimat (Ipratropium-Albuterol) 1 Aer Aer 1 Puffs INH QID 12/01/17 Reported Pravastatin Sodium (Pravastatin Sod) 40 Mg Tab 1 Tab PO HS 12/01/17 Reported Ranitidine HCl 300 Mg Tab 1 Tab PO BID 12/01/17 Reported Prednisone 50 Mg Tab 50 Mg PO UD 12/01/17 Reported Prednisone 10 Mg Tab 10 Mg PO TID 12/01/17 Reported Neurontin (Gabapentin) 100 Mg Cap 100 Mg PO BID 12/01/17 Reported [place]-3 (Fish Oil) 1 Ea Cap 2 Cap PO DAILY 01/28/17 Reported Imitrex (Sumatriptan Succinate) 50 Mg Tab 50 Mg PO PRN PRN 11/02/12 Reported Take 50 mg at onset of migraine BURNHAM and repeat in 2 hours if continued [place]. Amitriptyline Hcl 50 Mg Tab 75 Mg PO HS 11/02/12 Reported Paxil (Paroxetine Hcl) 40 Mg Tab 40 Mg PO DAILY 11/02/12 Reported Physical Physical Exam Vital Signs: Date Time Temp Pulse Resp B/P (MAP) Pulse Ox O2 Delivery O2 Flow Rate FiO2 03/02/18 11:06 91 22 90 Mask 5.0 03/02/18 11:00 88 20 129/77 (82) 90 03/02/18 10:00 111 19 127/76 (101) 93 03/02/18 10:00 20 90 Oxymask 5.0 03/02/18 09:00 85 19 118/74 (101) 90 03/02/18 08:00 Oxymask 03/02/18 08:00 92 Oxymask 5.0 03/02/18 08:00 91 21 125/81 (100) 92 03/02/18 08:00 36.6 03/02/18 07:03 69 22 92 Mask 5.0 03/02/18 06:01 82 23 119/81 (100) 93 03/02/18 05:01 87 20 102/84 (97) 95 03/02/18 04:01 85 21 122/89 (102) 95 03/02/18 04:00 36.9 03/02/18 04:00 96 Mask 5.0 95 03/02/18 03:01 92 26 119/70 (85) 95 03/02/18 02:01 104 18 111/89 (103) 96 03/02/18 01:59 99 22 93 Mask 5.0 03/02/18 01:00 105 19 128/75 (91) 97 03/02/18 00:00 112 19 142/87 (105) 93 03/01/18 23:59 36.9 125 22 145/99 94 Mask 5.0 03/01/18 23:30 125 20 145/99 (112) 97 03/01/18 23:00 122 25 135/95 (106) 95 03/01/18 22:34 126 160/98 94 BiPAP 03/01/18 22:23 Nasal Cannula 3.0 95 03/01/18 21:58 114 99 40 03/01/18 21:35 110 17 153/100 100 Nebulizer 03/01/18 21:30 107 03/01/18 20:44 36.4 116 30 164/106 94 Nasal Cannula 4.0 General Appearance: moderate distress Head: NORMOCEPHALIC, ATRAUMATIC Eyes: PERRLA, NO DISCHARGE, EOMI, SCLERAE NORMAL ENT: NORMAL EAR EXAM, NORMAL NASAL EXAM, NORMAL MOUTH EXAM, NORMAL THROAT EXAM , NORMAL DENTAL EXAM, NORMAL SINUS EXAM Neck: NORMAL RANGE OF MOTION, NO TENDERNESS, TRACHEA MIDLINE, NO STRIDOR Respiratory: other (Mild expiratory wheezing bilaterally) Cardiovasular: REGULAR RATE/RHYTHM, NORMAL S1S2, NO M/G/R, NO MURMUR Abdomen: NON TENDER, NORMAL BOWEL SOUNDS, NO REBOUND, NO MASSES, NO GUARDING Genitourinary - Male: EXTERNAL GENITALIA NORMAL Back: NORMAL INSPECTION, NO MIDLINE TENDERNESS, NO CVA TENDERNESS, NO PARAVERTEBRAL TTP Upper Extremities: NO EDEMA, NO DEFORMITY, NORMAL ROM Lower Extremities: NO EDEMA, NO DEFORMITY, NORMAL ROM Pulses: carotid (R) (2+), carotid (L) (2+), popliteal (R) (2+), popliteal (L) ( 2+) Neuro: ALERT, ORIENTED x 3, NORMAL MOTOR EXAM, NORMAL SENSATION Reflexes: biceps (R) (2+), bicpes (L) (2+), achilles (R) (2+), achilles (L) (2+ ) Babinski Testing: right (downgoing), left (downgoing) Psychiatric: NORMAL AFFECT, NO SUICIDAL IDEATION Diagnostics Labs Results Past 24 Hours Test 03/01/18 21:10 03/01/18 21:15 03/01/18 23:55 03/01/18 23:59 Range/Units White Blood Count 12.40 4.8-10.8 K/uL Red Blood Count 3.97 4.7-6.1 M/uL Hemoglobin 13.1 14.0-18.0 g/dL Hematocrit 38.5 42-52 % Mean Corpuscular Volume 97.0 80-100 fL Mean Corpuscular Hemoglobin 33.0 25-34 pg Mean Corpuscular Hemoglobin Concent 34.0 32-36 g/dl Platelet Count 181 130-400 K/uL Mean Platelet Volume 9.9 7.4-10.4 fL Neutrophils (%) (Auto) 68.4 % Lymphocytes (%) (Auto) 21.3 % Monocytes (%) (Auto) 8.2 % Eosinophils (%) (Auto) 1.0 % Basophils (%) (Auto) 0.2 % Neutrophils # (Auto) 8.49 1.4-6.5 K/uL Lymphocytes # (Auto) 2.64 1.2-3.4 K/uL Monocytes # (Auto) 1.02 0.11-0.59 K/uL Eosinophils # (Auto) 0.12 0-0.5 K/uL Basophils # (Auto) 0.02 0-0.2 K/uL RDW Standard Deviation 47.3 36.4-46.3 fL RDW Coefficient of Variation 13.4 11.5-14.5 % Immature Granulocyte % (Auto) 0.9 % Immature Granulocyte # (Auto) 0.11 0.00-0.02 K/uL Prothrombin Time 10.0 9.0-12.0 SECONDS Prothromb Time International Ratio 1.0 0.9-1.1 Activated Partial Thromboplast Time 27.8 21.0-31.0 SECONDS Partial Thromboplastin Ratio 1.1 Sodium Level 140 136-145 mmol/L Potassium Level 3.8 3.5-5.1 mmol/L Chloride Level 105 98-107 mmol/L Carbon Dioxide Level 32 21-32 mmol/L Anion Gap 3.0 3-11 mmol/L Blood Urea Nitrogen 9 7-18 mg/dl Creatinine 0.83 0.60-1.40 mg/dl Est Creatinine Clear Calc Drug Dose 121.7 ml/min Estimated GFR () 116.4 Estimated GFR (Non- 100.5 BUN/Creatinine Ratio 11.3 10-20 Random Glucose 129 70-99 mg/dl Calcium Level 8.3 8.5-10.1 mg/dl Magnesium Level 2.0 1.8-2.4 mg/dl Total Bilirubin 0.4 0.2-1 mg/dl Aspartate Amino Transf (AST/SGOT) 26 15-37 U/L Alanine Aminotransferase (ALT/SGPT) 43 12-78 U/L Alkaline Phosphatase 96 45-117 U/L Troponin I < 0.015 0-0.045 ng/ml Pro-B-Type Natriuretic Peptide 42 0-900 pg/ml Total Protein 6.9 6.4-8.2 gm/dl Albumin 3.2 3.4-5.0 gm/dl Globulin 3.7 2.5-4.0 gm/dl Albumin/Globulin Ratio 0.9 0.9-2 Lipase 80 73-393 U/L Lactic Acid Level 1.6 0.4-2.0 mmol/L Influenza Type A (RT-PCR) Neg for Influ A NEG Influenza Type B (RT-PCR) Neg for Influ B NEG Bedside Glucose 140 70-99 mg/dl Test 03/02/18 05:01 03/02/18 05:08 03/02/18 05:46 03/02/18 08:58 Range/Units Procalcitonin 0.10 0-0.5 ng/ml White Blood Count 15.42 4.8-10.8 K/uL Red Blood Count 4.04 4.7-6.1 M/uL Hemoglobin 12.8 14.0-18.0 g/dL Hematocrit 38.2 42-52 % Mean Corpuscular Volume 94.6 80-100 fL Mean Corpuscular Hemoglobin 31.7 25-34 pg Mean Corpuscular Hemoglobin Concent 33.5 32-36 g/dl Platelet Count 182 130-400 K/uL Mean Platelet Volume 9.8 7.4-10.4 fL Neutrophils (%) (Auto) 87.1 % Lymphocytes (%) (Auto) 8.8 % Monocytes (%) (Auto) 3.2 % Eosinophils (%) (Auto) 0.0 % Basophils (%) (Auto) 0.1 % Neutrophils # (Auto) 13.42 1.4-6.5 K/uL Lymphocytes # (Auto) 1.36 1.2-3.4 K/uL Monocytes # (Auto) 0.50 0.11-0.59 K/uL Eosinophils # (Auto) 0.00 0-0.5 K/uL Basophils # (Auto) 0.01 0-0.2 K/uL RDW Standard Deviation 46.3 36.4-46.3 fL RDW Coefficient of Variation 13.4 11.5-14.5 % Immature Granulocyte % (Auto) 0.8 % Immature Granulocyte # (Auto) 0.13 0.00-0.02 K/uL Venous Blood pH 7.41 7.36-7.41 Venous Blood Partial Pressure CO2 50 38.0-50.0 mmHg Venous Blood Partial Pressure O2 81 mmHg Venous Blood HCO3 31 mmol/L Venous Blood Oxygen Saturation 96.0 % Venous Blood Base Excess 5.3 mEq/L Sodium Level 137 136-145 mmol/L Potassium Level 4.2 3.5-5.1 mmol/L Chloride Level 102 98-107 mmol/L Carbon Dioxide Level 29 21-32 mmol/L Anion Gap 6.0 3-11 mmol/L Blood Urea Nitrogen 11 7-18 mg/dl Creatinine 0.91 0.60-1.40 mg/dl Est Creatinine Clear Calc Drug Dose 110.7 ml/min Estimated GFR () 111.1 Estimated GFR (Non- 95.9 BUN/Creatinine Ratio 12.4 10-20 Random Glucose 184 70-99 mg/dl Calcium Level 8.3 8.5-10.1 mg/dl Phosphorus Level 3.5 2.5-4.9 mg/dl Magnesium Level 2.1 1.8-2.4 mg/dl Bedside Glucose 187 70-99 mg/dl Blood Gas Sample Site R Radial Bedside Blood Gas pH (LAB) 7.45 7.35-7.45 Bedside Blood Gas pCO2 (LAB) 43 35-46 mmHg Bedside Blood Gas pO2 (LAB) 60 80-95 mmHg Bedside Blood Gas HCO3 (LAB) 30 19-24 meq/L Bedside Blood Gas Total CO2 31 24-31 mEq/l Bedside Blood Gas Base Excess (LAB) 6.0 -9-1.8 meq/L Bedside Blood Gas O2 Saturation 92.0 90-95 % [place] Test Pass Oxygen Delivery Device Other Bedside FiO2 0 % Pro-B-Type Natriuretic Peptide 50 0-900 pg/ml Test 03/02/18 11:56 Range/Units Bedside Glucose 173 70-99 mg/dl Microbiology Results 03/01/18 Blood Culture, Received Pending 03/01/18 Blood Culture, Received Pending 03/01/18 MRSA DNA Surveillance Screen - Final, Complete Specimen Negative for MRSA by DNA Probe Diagnostic Radiology Please refer to HPI EKG Please refer to HPI Impression Assessment and Plan 52-year-old male admitted for hypoxic respiratory insufficiency: 1. Hypersensitivity Pneumonitis: This time is most likely the patient's hypoxia is from a flare of his hypersensitivity pneumonitis. At this time the patient is receiving about 1.5 mg/kg of prednisone equivalent. On average the patient should receive about 1.0 mg/kg for flare with a maximum dose about 60 mg of prednisone daily. At this time will switch the patient to oral prednisone 30 mg b.i.d.. Is most likely the patient's steroid taper was too quick for his underlying disease. 2. Hypoxia: Continue on oxygen support but will also look for secondary diagnosis as patient does have an elevated WBC count of his hypoxia. Will obtain sputum sample of possible in also send off for Legionella urine antigen as well as mycoplasma antibodies. Will also add Bactrim to the patient's current antibiotic regimen. Patient's procalcitonin was within normal limits suggesting a decreased likelihood of bacterial infection but will slowly wean off his antibiotics as the patient's hypoxemia resolves. Along with this echocardiogram as well as BMP did not show signs of sarmad heart failure/CHF. Will consult Infectious Disease as the patient is immuno incompetent.
--- NOTE | 2018-03-02 13:31 | Critical Care Progress Note ---
Critical Care Progress Note Date of Service Mar 02, 2018. Attending Dr. London Subjective Mr. Winchester reports his breathing is improved this morning. He states he remains with a nonproductive cough, but that it is no worse than his chronic cough. He denies chest pain, wheezing or headache. Objective GENERAL: Awake, alert, appears restless. In no acute distress. HENT: Normocephalic, atraumatic. RESPIRATORY: Decreased breath sounds with bilateral soft expiratory wheezing CARDIAC: Regular rate, normal rhythm. ABDOMEN: Soft, non-distended. No tenderness to palpation. LOWER EXTREMITIES: Calves are equal size bilaterally and non-tender. No edema. Assessment & Plan Mr. Winchester is a 52-year-old male with a history of asthma & COPD who was admitted to the ICU for acute on chronic respiratory failure with noted hypoxia and respiratory distress. He was unable to tolerate BiPAP and has been maintained on 5L of oxygen via oxymask. 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 No wall motion abnormalities. - Lasix 20mg BID IV - pt currently overall -904 mLs - initial troponin negative, will trend - EKG WNL - repeat BNP negative Fluids/Renal: - Cr: 0.91 - BMP WNL ID: - Leukocytosis noted, but pt has been on steroids. Afebrile - Continue Zosyn IV, Azithro PO, and bactrim PO - Possible secondary pulm source versus fluid overload, continue to monitor - Blood Cultures Pending GI/Nutrition: GERD - Continue H2 Cecelia - NPO except meds in case pt decompensates and requires intubation Heme: - Hgb 12.8, MCV normal - likely anemia of chronic disease Endocrine: - HbA1c = 6.5% - Accu-Checks per protocol - SSI ordered - blood sugar = 173 - 187 Access: 20G PIV on right, 20G PIV on left DVT Prophylaxis: Lovenox 40mg qAM Code status: FULL Dr. Tamayo was resident physician during care of patient. I separately evaluated patient and did history and exam. I discussed the case with the resident and generally agree with the findings and plan. Patient with worsening chest x-ray, P to F ratio is approximately 177 this morning on ABG, consider our ARDS versus worsening multilobar pneumonia versus hypersensitivity pneumonitis. Will encourage the patient to wear his noninvasive ventilator, CPAP at night as previously recommended. Has increase oxygen requirement at this time from his 3 L of oxygen at baseline. I do not believe that there is a cardiac component this point the patient's BNP remains negative and echo is largely unremarkable, will continue with diuresis. Protocol was minimally elevated, I doubt this represents active pulmonary infection, however he is covered for Pseudomonas given structural lung disease, azithromycin for atypicals and strep pneumo as well as Bactrim for PJP. Patient remains full code, I would continue managing the patient in the ICU given his high oxygen requirements and likely need for mechanical ventilation should the patient decompensate. I have personally spent 45 minutes of critical care time in the direct management of this patient. This is a life/limb threatening event. This includes time spent evaluating patient, direct bedside care, chart review, placing orders, interpretation of diagnostic studies, discussion with consultants, patient, and/or family members regarding treatment decisions, as well as other required patient management activities. This time is exclusive of all separately billable procedures, and teaching time and separate from and in addition to any other critical care service time. Data Medications: Current Inpatient Medications Medications (Trade) Dose Ordered Sig/Nemo Route Start Time Stop Time Status Last Admin Dose Admin Miscellaneous Information (Icu Protocol For Hyperglycemia) 1 ea PRN PRN N/A 03/01/18 22:45 03/03/18 22:44 03/02/18 12:08 1 EA Aspirin (Ecotrin Tab) 325 mg DAILY PO 03/02/18 09:00 04/01/18 08:59 03/02/18 07:51 325 MG Gabapentin (Neurontin Cap) 100 mg BID PO 03/02/18 09:00 04/01/18 08:59 03/02/18 07:52 100 MG Paroxetine HCl (pAXil TAB) 40 mg DAILY PO 03/02/18 09:00 04/01/18 08:59 03/02/18 07:52 40 MG Pravastatin Sodium (Pravachol Tab) 40 mg HS PO 03/02/18 21:00 04/01/18 20:59 Ranitidine HCl (zANTac TAB) 300 mg BID PO 03/02/18 09:00 04/01/18 08:59 03/02/18 07:53 300 MG Furosemide 20 mg/ Syringe 2 ml @ 4 mls/min BID IV 03/02/18 09:00 04/01/18 08:59 03/02/18 07:51 4 MLS/MIN Methylprednisolone Sodium Succinate 40 mg/Syringe 0.64 ml @ 1.5 mls/min Q8H IV 03/02/18 04:00 04/01/18 03:59 03/02/18 12:29 1.5 MLS/MIN Levalbuterol (Xopenex 0.63 Mg/ 3 Ml Neb) 0.63 mg Q4H PRN INH 03/01/18 23:15 03/31/18 23:14 03/02/18 01:58 0.63 MG Azithromycin (Zithromax Tab) 500 mg DAILY@2100 PO 03/02/18 21:00 03/09/18 20:59 Piperacillin Sod/ Tazobactam Sod 4.5 gm/Dextrose 120 ml @ 30 mls/hr Q8H IV 03/02/18 04:00 03/09/18 03:59 03/02/18 12:29 30 MLS/HR Miscellaneous Information (Consult) 1 ea UD PRN N/A 03/01/18 23:15 03/31/18 23:14 Ipratropium [place] (Atrovent 0.02% 0.5MG/2.5ML Neb) 0.5 mg QIDR INH 03/02/18 08:00 04/01/18 07:59 03/02/18 11:04 0.5 MG Levalbuterol (Xopenex 1.25MG/ 0.5ML Neb) 1.25 mg QIDR INH 03/02/18 08:00 04/01/18 07:59 03/02/18 11:04 1.25 MG Enoxaparin Sodium (Lovenox Inj) 40 mg QAM SQ 03/02/18 09:00 04/01/18 08:59 03/02/18 07:53 40 MG Acetaminophen (Tylenol Tab) 1,000 mg Q8H PRN PO 03/01/18 23:45 03/31/18 23:44 Potassium Chloride (Klor-Con Tab) 20 meq BID PO 03/02/18 09:00 04/01/18 08:59 03/02/18 09:54 20 MEQ Lorazepam (Ativan Inj) 1 mg Q6H PRN IV 03/02/18 09:45 04/01/18 09:44 Glucose (Glucose 40% Gel) 15-30 GRAMS 15 GRAMS... UD PRN PO 03/02/18 12:45 04/01/18 12:44 Glucose (Glucose Chew Tab) 4-8 Tablets 4 Tabl... UD PRN PO 03/02/18 12:45 04/01/18 12:44 Dextrose (Dextrose 50% 50ML Syringe) 25-50ML 25ML FOR ... UD PRN IV 03/02/18 12:45 04/01/18 12:44 Glucagon (Glucagon Inj) 1 mg UD PRN IM 03/02/18 12:45 04/01/18 12:44 Carbohydrates (Carbohydrates For Hypoglycemia) 15-30 GRAMS 15 grams if BSG 54-69... UD PRN PO 03/02/18 12:45 04/01/18 12:44 Miscellaneous Information (Consult Glycemic Management Pharmacy) 1 ea UD PRN N/A 03/02/18 12:45 04/01/18 12:44 Insulin Aspart (novoLOG ASPART) SLIDING SCALE G... Q6H SC 03/02/18 12:45 04/01/18 12:44 Vital Signs: Date Time Temp Pulse Resp B/P (MAP) Pulse Ox O2 Delivery O2 Flow Rate FiO2 03/02/18 12:00 89 22 111/83 (92) 92 Nasal Cannula 03/02/18 11:06 91 22 90 Mask 5.0 03/02/18 11:00 88 20 129/77 (82) 90 03/02/18 10:00 111 19 127/76 (101) 93 03/02/18 10:00 20 90 Oxymask 5.0 03/02/18 09:00 85 19 118/74 (101) 90 03/02/18 08:00 Oxymask 03/02/18 08:00 92 Oxymask 5.0 03/02/18 08:00 91 21 125/81 (100) 92 03/02/18 08:00 36.6 03/02/18 07:03 69 22 92 Mask 5.0 03/02/18 06:01 82 23 119/81 (100) 93 03/02/18 05:01 87 20 102/84 (97) 95 03/02/18 04:01 85 21 122/89 (102) 95 03/02/18 04:00 36.9 03/02/18 04:00 96 Mask 5.0 95 03/02/18 03:01 92 26 119/70 (85) 95 03/02/18 02:01 104 18 111/89 (103) 96 03/02/18 01:59 99 22 93 Mask 5.0 03/02/18 01:00 105 19 128/75 (91) 97 03/02/18 00:00 112 19 142/87 (105) 93 03/01/18 23:59 36.9 125 22 145/99 94 Mask 5.0 03/01/18 23:30 125 20 145/99 (112) 97 03/01/18 23:00 122 25 135/95 (106) 95 03/01/18 22:34 126 160/98 94 BiPAP 03/01/18 22:23 Nasal Cannula 3.0 95 03/01/18 21:58 114 99 40 03/01/18 21:35 110 17 153/100 100 Nebulizer 03/01/18 21:30 107 03/01/18 20:44 36.4 116 30 164/106 94 Nasal Cannula 4.0 Laboratory Results: Last 24 Hours Test 03/01/18 21:10 03/01/18 21:15 03/01/18 23:55 03/01/18 23:59 White Blood Count 12.40 K/uL Red Blood Count 3.97 M/uL Hemoglobin 13.1 g/dL Hematocrit 38.5 % Mean Corpuscular Volume 97.0 fL Mean Corpuscular Hemoglobin 33.0 pg Mean Corpuscular Hemoglobin Concent 34.0 g/dl Platelet Count 181 K/uL Mean Platelet Volume 9.9 fL Neutrophils (%) (Auto) 68.4 % Lymphocytes (%) (Auto) 21.3 % Monocytes (%) (Auto) 8.2 % Eosinophils (%) (Auto) 1.0 % Basophils (%) (Auto) 0.2 % Neutrophils # (Auto) 8.49 K/uL Lymphocytes # (Auto) 2.64 K/uL Monocytes # (Auto) 1.02 K/uL Eosinophils # (Auto) 0.12 K/uL Basophils # (Auto) 0.02 K/uL RDW Standard Deviation 47.3 fL RDW Coefficient of Variation 13.4 % Immature Granulocyte % (Auto) 0.9 % Immature Granulocyte # (Auto) 0.11 K/uL Prothrombin Time 10.0 SECONDS Prothromb Time International Ratio 1.0 Activated Partial Thromboplast Time 27.8 SECONDS Partial Thromboplastin Ratio 1.1 Sodium Level 140 mmol/L Potassium Level 3.8 mmol/L Chloride Level 105 mmol/L Carbon Dioxide Level 32 mmol/L Anion Gap 3.0 mmol/L Blood Urea Nitrogen 9 mg/dl Creatinine 0.83 mg/dl Est Creatinine Clear Calc Drug Dose 121.7 ml/min Estimated GFR () 116.4 Estimated GFR (Non- 100.5 BUN/Creatinine Ratio 11.3 Random Glucose 129 mg/dl Calcium Level 8.3 mg/dl Magnesium Level 2.0 mg/dl Total Bilirubin 0.4 mg/dl Aspartate Amino Transf (AST/SGOT) 26 U/L Alanine Aminotransferase (ALT/SGPT) 43 U/L Alkaline Phosphatase 96 U/L Troponin I < 0.015 ng/ml Pro-B-Type Natriuretic Peptide 42 pg/ml Total Protein 6.9 gm/dl Albumin 3.2 gm/dl Globulin 3.7 gm/dl Albumin/Globulin Ratio 0.9 Lipase 80 U/L Lactic Acid Level 1.6 mmol/L Influenza Type A (RT-PCR) Neg for Influ A Influenza Type B (RT-PCR) Neg for Influ B Bedside Glucose 140 mg/dl Test 03/02/18 05:01 03/02/18 05:08 03/02/18 05:46 03/02/18 08:58 Procalcitonin 0.10 ng/ml White Blood Count 15.42 K/uL Red Blood Count 4.04 M/uL Hemoglobin 12.8 g/dL Hematocrit 38.2 % Mean Corpuscular Volume 94.6 fL Mean Corpuscular Hemoglobin 31.7 pg Mean Corpuscular Hemoglobin Concent 33.5 g/dl Platelet Count 182 K/uL Mean Platelet Volume 9.8 fL Neutrophils (%) (Auto) 87.1 % Lymphocytes (%) (Auto) 8.8 % Monocytes (%) (Auto) 3.2 % Eosinophils (%) (Auto) 0.0 % Basophils (%) (Auto) 0.1 % Neutrophils # (Auto) 13.42 K/uL Lymphocytes # (Auto) 1.36 K/uL Monocytes # (Auto) 0.50 K/uL Eosinophils # (Auto) 0.00 K/uL Basophils # (Auto) 0.01 K/uL RDW Standard Deviation 46.3 fL RDW Coefficient of Variation 13.4 % Immature Granulocyte % (Auto) 0.8 % Immature Granulocyte # (Auto) 0.13 K/uL Venous Blood pH 7.41 Venous Blood Partial Pressure CO2 50 mmHg Venous Blood Partial Pressure O2 81 mmHg Venous Blood HCO3 31 mmol/L Venous Blood Oxygen Saturation 96.0 % Venous Blood Base Excess 5.3 mEq/L Sodium Level 137 mmol/L Potassium Level 4.2 mmol/L Chloride Level 102 mmol/L Carbon Dioxide Level 29 mmol/L Anion Gap 6.0 mmol/L Blood Urea Nitrogen 11 mg/dl Creatinine 0.91 mg/dl Est Creatinine Clear Calc Drug Dose 110.7 ml/min Estimated GFR () 111.1 Estimated GFR (Non- 95.9 BUN/Creatinine Ratio 12.4 Random Glucose 184 mg/dl Calcium Level 8.3 mg/dl Phosphorus Level 3.5 mg/dl Magnesium Level 2.1 mg/dl Bedside Glucose 187 mg/dl Blood Gas Sample Site R Radial Bedside Blood Gas pH (LAB) 7.45 Bedside Blood Gas pCO2 (LAB) 43 mmHg Bedside Blood Gas pO2 (LAB) 60 mmHg Bedside Blood Gas HCO3 (LAB) 30 meq/L Bedside Blood Gas Total CO2 31 mEq/l Bedside Blood Gas Base Excess (LAB) 6.0 meq/L Bedside Blood Gas O2 Saturation 92.0 % [place] Test Pass Oxygen Delivery Device Other Bedside FiO2 0 % Pro-B-Type Natriuretic Peptide 50 pg/ml Test 03/02/18 11:56 Bedside Glucose 173 mg/dl Resident Tracking Resident Involvement: Resident Care Provided Care Provided: Adult Hospital Medicine
[2018-03-02] MEDS: INSULIN ASPART 100 UNITS/ML 3 ML PEN SC SCH ×3 (13:40→23:58)
[2018-03-02] MEDS: SULFAMETHOXAZOLE/TRIMETHOPRIM 200MG/40MG/5ML SUSP PO SCH ×2 (14:42→20:00)
--- NOTE | 2018-03-02 17:27 | Progress Note ---
Medicine Progress Note Date & Time of Visit: Mar 02, 2018 at 17:00. Subjective Pt was seen and examined Lying in bed with no distress Pt said that his breathing seems to improve Denies any chest pain, palpitation, dizziness and SOB Objective Last 8 Hrs Date Time Temp Pulse Resp B/P (MAP) Pulse Ox O2 Delivery O2 Flow Rate FiO2 03/02/18 14:00 86 20 130/104 (113) 91 Oxymask 5.0 03/02/18 12:00 89 22 111/83 (92) 92 Nasal Cannula 03/02/18 12:00 92 Oxymask 5.0 03/02/18 11:06 91 22 90 Mask 5.0 03/02/18 11:00 88 20 129/77 (82) 90 03/02/18 10:00 111 19 127/76 (101) 93 03/02/18 10:00 20 90 Oxymask 5.0 Physical Exam: General- No acute distress Head- atraumatic Eyes- PERRL, EOMI ENT- oropharynx clear Neck- supple, no JVD Lungs- clear to auscultation Heart- regular rhythm; no murmur Abdomen- normal bowel sounds, soft Extremities- no calf tenderness Neuro- alert, oriented x 3; PERRL Skin- warm & dry Laboratory Results: Last 24 Hours Test 03/01/18 21:10 03/01/18 21:15 03/01/18 23:55 03/01/18 23:59 White Blood Count 12.40 K/uL Red Blood Count 3.97 M/uL Hemoglobin 13.1 g/dL Hematocrit 38.5 % Mean Corpuscular Volume 97.0 fL Mean Corpuscular Hemoglobin 33.0 pg Mean Corpuscular Hemoglobin Concent 34.0 g/dl Platelet Count 181 K/uL Mean Platelet Volume 9.9 fL Neutrophils (%) (Auto) 68.4 % Lymphocytes (%) (Auto) 21.3 % Monocytes (%) (Auto) 8.2 % Eosinophils (%) (Auto) 1.0 % Basophils (%) (Auto) 0.2 % Neutrophils # (Auto) 8.49 K/uL Lymphocytes # (Auto) 2.64 K/uL Monocytes # (Auto) 1.02 K/uL Eosinophils # (Auto) 0.12 K/uL Basophils # (Auto) 0.02 K/uL RDW Standard Deviation 47.3 fL RDW Coefficient of Variation 13.4 % Immature Granulocyte % (Auto) 0.9 % Immature Granulocyte # (Auto) 0.11 K/uL Prothrombin Time 10.0 SECONDS Prothromb Time International Ratio 1.0 Activated Partial Thromboplast Time 27.8 SECONDS Partial Thromboplastin Ratio 1.1 Sodium Level 140 mmol/L Potassium Level 3.8 mmol/L Chloride Level 105 mmol/L Carbon Dioxide Level 32 mmol/L Anion Gap 3.0 mmol/L Blood Urea Nitrogen 9 mg/dl Creatinine 0.83 mg/dl Est Creatinine Clear Calc Drug Dose 121.7 ml/min Estimated GFR () 116.4 Estimated GFR (Non- 100.5 BUN/Creatinine Ratio 11.3 Random Glucose 129 mg/dl Calcium Level 8.3 mg/dl Magnesium Level 2.0 mg/dl Total Bilirubin 0.4 mg/dl Aspartate Amino Transf (AST/SGOT) 26 U/L Alanine Aminotransferase (ALT/SGPT) 43 U/L Alkaline Phosphatase 96 U/L Troponin I < 0.015 ng/ml Pro-B-Type Natriuretic Peptide 42 pg/ml Total Protein 6.9 gm/dl Albumin 3.2 gm/dl Globulin 3.7 gm/dl Albumin/Globulin Ratio 0.9 Lipase 80 U/L Lactic Acid Level 1.6 mmol/L Influenza Type A (RT-PCR) Neg for Influ A Influenza Type B (RT-PCR) Neg for Influ B Bedside Glucose 140 mg/dl Test 03/02/18 05:01 03/02/18 05:08 03/02/18 05:46 03/02/18 08:58 Procalcitonin 0.10 ng/ml White Blood Count 15.42 K/uL Red Blood Count 4.04 M/uL Hemoglobin 12.8 g/dL Hematocrit 38.2 % Mean Corpuscular Volume 94.6 fL Mean Corpuscular Hemoglobin 31.7 pg Mean Corpuscular Hemoglobin Concent 33.5 g/dl Platelet Count 182 K/uL Mean Platelet Volume 9.8 fL Neutrophils (%) (Auto) 87.1 % Lymphocytes (%) (Auto) 8.8 % Monocytes (%) (Auto) 3.2 % Eosinophils (%) (Auto) 0.0 % Basophils (%) (Auto) 0.1 % Neutrophils # (Auto) 13.42 K/uL Lymphocytes # (Auto) 1.36 K/uL Monocytes # (Auto) 0.50 K/uL Eosinophils # (Auto) 0.00 K/uL Basophils # (Auto) 0.01 K/uL RDW Standard Deviation 46.3 fL RDW Coefficient of Variation 13.4 % Immature Granulocyte % (Auto) 0.8 % Immature Granulocyte # (Auto) 0.13 K/uL Venous Blood pH 7.41 Venous Blood Partial Pressure CO2 50 mmHg Venous Blood Partial Pressure O2 81 mmHg Venous Blood HCO3 31 mmol/L Venous Blood Oxygen Saturation 96.0 % Venous Blood Base Excess 5.3 mEq/L Sodium Level 137 mmol/L Potassium Level 4.2 mmol/L Chloride Level 102 mmol/L Carbon Dioxide Level 29 mmol/L Anion Gap 6.0 mmol/L Blood Urea Nitrogen 11 mg/dl Creatinine 0.91 mg/dl Est Creatinine Clear Calc Drug Dose 110.7 ml/min Estimated GFR () 111.1 Estimated GFR (Non- 95.9 BUN/Creatinine Ratio 12.4 Random Glucose 184 mg/dl Calcium Level 8.3 mg/dl Phosphorus Level 3.5 mg/dl Magnesium Level 2.1 mg/dl Bedside Glucose 187 mg/dl Blood Gas Sample Site R Radial Bedside Blood Gas pH (LAB) 7.45 Bedside Blood Gas pCO2 (LAB) 43 mmHg Bedside Blood Gas pO2 (LAB) 60 mmHg Bedside Blood Gas HCO3 (LAB) 30 meq/L Bedside Blood Gas Total CO2 31 mEq/l Bedside Blood Gas Base Excess (LAB) 6.0 meq/L Bedside Blood Gas O2 Saturation 92.0 % [place] Test Pass Oxygen Delivery Device Other Bedside FiO2 0 % Pro-B-Type Natriuretic Peptide 50 pg/ml Test 03/02/18 11:56 03/02/18 14:03 03/02/18 16:17 Bedside Glucose 173 mg/dl Troponin I < 0.015 ng/ml Date/Time Source Procedure Growth Status 03/01/18 21:20 Blood Blood Culture Pending Received 03/01/18 21:10 Blood Blood Culture Pending Received 03/01/18 23:55 Nasal MRSA DNA Surveillance Screen - Final Specimen Negative for MRSA by DNA Probe Complete Assessment & Plan ACUTE ON CHRONIC HYPOXIC RESPIRATORY FAILURE Possible related to hypersensitivity Pneumonitis CXR showed findings suggest asymmetric pulmonary edema or multifocal pneumonia. Was starting on BIPAP in the ICU Received solumedrol in the ER Steroid changed to prednisone 30mg BID Procalcitonin [place] WBC elevated Continue Zosyn IV and Bactrim adding Continue oxygen supplement and neb treatment Continue monitor in tele Pulmonology on board PULMONARY EDEMA ON CXR BNP wnl continue lasix Will repeat cxr in am ECHO showed * Normal LV chamber size and wall thickness. * Normal LV systolic function, EF 65-70%. * No segmental left ventricular wall motion abnormalities are noted. * Grade I diastolic dysfunction. * Poorly visualized RV. * No significant valvular pathology. SLEEP APNEA Continue CPAP / BiPAP. GERD Continue ranitidine. TOBACCO USE Counselling on smoking cessation VTE PROPHYLAXIS SQ enoxaparin. Ambulate. RESUSCITATION STATUS Full code. . Current Inpatient Medications: Current Inpatient Medications Medications (Trade) Dose Ordered Sig/Nemo Route Start Time Stop Time Status Last Admin Dose Admin Miscellaneous Information (Icu Protocol For Hyperglycemia) 1 ea PRN PRN N/A 03/01/18 22:45 03/03/18 22:44 03/02/18 12:08 1 EA Aspirin (Ecotrin Tab) 325 mg DAILY PO 03/02/18 09:00 04/01/18 08:59 03/02/18 07:51 325 MG Gabapentin (Neurontin Cap) 100 mg BID PO 03/02/18 09:00 04/01/18 08:59 03/02/18 07:52 100 MG Paroxetine HCl (pAXil TAB) 40 mg DAILY PO 03/02/18 09:00 04/01/18 08:59 03/02/18 07:52 40 MG Pravastatin Sodium (Pravachol Tab) 40 mg HS PO 03/02/18 21:00 04/01/18 20:59 Ranitidine HCl (zANTac TAB) 300 mg BID PO 03/02/18 09:00 04/01/18 08:59 03/02/18 07:53 300 MG Furosemide 20 mg/ Syringe 2 ml @ 4 mls/min BID IV 03/02/18 09:00 04/01/18 08:59 03/02/18 07:51 4 MLS/MIN Levalbuterol (Xopenex 0.63 Mg/ 3 Ml Neb) 0.63 mg Q4H PRN INH 03/01/18 23:15 03/31/18 23:14 03/02/18 01:58 0.63 MG Azithromycin (Zithromax Tab) 500 mg DAILY@2100 PO 03/02/18 21:00 03/09/18 20:59 Piperacillin Sod/ Tazobactam Sod 4.5 gm/Dextrose 120 ml @ 30 mls/hr Q8H IV 03/02/18 04:00 03/09/18 03:59 03/02/18 12:29 30 MLS/HR Miscellaneous Information (Consult) 1 ea UD PRN N/A 03/01/18 23:15 03/31/18 23:14 Ipratropium [place] (Atrovent 0.02% 0.5MG/2.5ML Neb) 0.5 mg QIDR INH 03/02/18 08:00 04/01/18 07:59 03/02/18 15:05 0.5 MG Levalbuterol (Xopenex 1.25MG/ 0.5ML Neb) 1.25 mg QIDR INH 03/02/18 08:00 04/01/18 07:59 03/02/18 15:05 1.25 MG Enoxaparin Sodium (Lovenox Inj) 40 mg QAM SQ 03/02/18 09:00 04/01/18 08:59 03/02/18 07:53 40 MG Acetaminophen (Tylenol Tab) 1,000 mg Q8H PRN PO 03/01/18 23:45 03/31/18 23:44 Potassium Chloride (Klor-Con Tab) 20 meq BID PO 03/02/18 09:00 04/01/18 08:59 03/02/18 09:54 20 MEQ Lorazepam (Ativan Inj) 1 mg Q6H PRN IV 03/02/18 09:45 04/01/18 09:44 Glucose (Glucose 40% Gel) 15-30 GRAMS 15 GRAMS... UD PRN PO 03/02/18 12:45 04/01/18 12:44 Glucose (Glucose Chew Tab) 4-8 Tablets 4 Tabl... UD PRN PO 03/02/18 12:45 04/01/18 12:44 Dextrose (Dextrose 50% 50ML Syringe) 25-50ML 25ML FOR ... UD PRN IV 03/02/18 12:45 04/01/18 12:44 Glucagon (Glucagon Inj) 1 mg UD PRN IM 03/02/18 12:45 04/01/18 12:44 Carbohydrates (Carbohydrates For Hypoglycemia) 15-30 GRAMS 15 grams if BSG 54-69... UD PRN PO 03/02/18 12:45 04/01/18 12:44 Miscellaneous Information (Consult Glycemic Management Pharmacy) 1 ea UD PRN N/A 03/02/18 12:45 04/01/18 12:44 Insulin Aspart (novoLOG ASPART) SLIDING SCALE G... Q6H SC 03/02/18 12:45 04/01/18 12:44 03/02/18 13:40 1 UNITS Prednisone (PredniSONE TAB) 30 mg BID PO 03/02/18 21:00 04/01/18 20:59 Trimethoprim/ Sulfamethoxazole (Septra Susp) 46 ml Q6H PO 03/02/18 14:00 03/16/18 08:01 03/02/18 14:42 46 ML
[2018-03-02] MEDS: PRAVASTATIN SOD 40 MG TAB PO SCH (20:39)
[2018-03-02] MEDS: AZITHROMYCIN 250 MG TAB PO SCH (20:40)
[2018-03-02] MEDS: LORAZEPAM 2 MG/ML 1 ML VIAL IV PRN (20:52)
[2018-03-02] MEDS ORDERED: MoRPHine SULFATE 4 MG/ML 1 ML CARP\\VIAL IV PRN (23:15)
[2018-03-02] MEDS ORDERED: ONDANSETRON INJ 2 MG/ML 2 ML VIAL IV PRN (23:45)
[2018-03-02] MEDS ORDERED: ONDANSETRON INJ 2 MG/ML 2 ML VIAL ONE (23:46)
[2018-03-03] VITALS (110 sets, daily range): BP systolic 93–153; BP diastolic 41–105; PULSE 66–145; TEMP 36.4–37.3; O2SAT 83–100; Ht 177.8 cm; Wt 91.7 kg
--- NOTE | 2018-03-03 02:29 | Critical Care Progress Note ---
Critical Care Progress Note Date of Service Mar 03, 2018. Critical Care Progress Note Mr. 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 At this time, he is extremely restless during sleep; accordingly due to his sleep disorder. Pt has been placed on 10 of CPAP for the night. While he is pulling good tidal volumes , he continues to be tachypneic. His FIO2 has been increased multiple times from 55% to now 70%. Recent blood gas is 7.379/60/55/35.4 on 60%. His diuresis has greatly decreased since his last lasix dose. At this time I have also discussed the pt with Dr. Redding who has reviewed pt ABG and EKG and agrees that pt is approaching the need for intubation. Pts P:F ratio has declined since this AM. Pt has not complaints of pain. Does state he has intermittent shortness of breath, nothing sustained. Pt states he feels worse than yesterday. Physical Exam denotes mild rales to the right base and increased coarseness throughout though difficult to distinguish sounds about pts restlessness and CPAP. Remainder of physical exam is unchanged. PLAN: Intubation boxed placed outside pt room * Will call Dr. Barraza if pt acutely decompensates or requires additional O2 Continue to monitor closely, Goal spO2 > 88% Repeat ABG @ 0230 UPDATE: Repeat lab shows no improvement despite increase in FIO2. Spoke with Dr. London: * Line emergently * See separate notes for CVL and Arterial Line * Intubate Now * Call Dr. Barraza to intubate pt emergently * Called to update, she is on her way in * Provide Neuro Muscular Blockage * Train of four: Goal 2 out of 4 * Sedation * Versed/fentanyl Infusion * BIS Gaol 40-60 * Follow ARDS Net Guideline: * Higher PEEP/Lower FIO2 CCT: 50 minutes; Not including any billable procedures. Thank you for including us in the care of this patient. Please review Dr. Serafin London's addendum for further recommendations. My evaluation of the independent of Karen Ellis's evaluation above Patient was discussed on multidisciplinary rounds We have converted the Lovenox DVT prophylaxis to heparin in the setting of AK I We are continuing the azithromycin and Zosyn we have added vancomycin and discontinued Bactrim in the setting of acute kidney injury. I have reviewed the infectious disease consultation and we have obtained a BAL specimen to evaluate for PJP. Steroids have been increased secondary to diffuse alveolar hemorrhage, and LYNDSEY profile as well as anti-basement membrane having diffuse alveolar hemorrhage in setting of acute kidney injury is also been sent. We are obtaining a new UA for further evaluation and because the acute kidney injury which at this time would attribute to aggressive diuresis and Bactrim. We will also follow-up or repeat procalcitonin tomorrow I have personally spent 65 minutes of critical care time in the direct management of this patient. This is a life/limb threatening event. This includes time spent evaluating patient, direct bedside care, chart review, placing orders, interpretation of diagnostic studies, discussion with consultants, patient, and/or family members regarding treatment decisions, as well as other required patient management activities. This time is exclusive of all separately billable procedures, and teaching time and separate from and in addition to any other critical care service time.
[2018-03-03] MEDS ORDERED: RAPID SEQUENCE INDUCTION BAG ONE (02:39)
[2018-03-03] MEDS ORDERED: FENTANYL CITRATE 1250MCG/250ML NSS ONE (03:02)
[2018-03-03] MEDS ORDERED: MIDAZOLAM 125MG/250ML D5W ONE (03:02)
[2018-03-03] MEDS ORDERED: CISATRACURIUM IV BOLUS & DRIP IV STA (03:08)
--- NOTE | 2018-03-03 03:17 | Anesthesiology Progress Note ---
Anesthesia Progress Note Date of Service Mar 03, 2018. Progress Notes Mr. Anuel Winchester is a 52 yo male in the SICU. I was called to the bedside to provide emergency intubation services secondary to respiratory distress with hypoxia. The patient has NKDA. He has a PMH notable for severe COPD, scoliosis and sleep apnea. Recent CXR was read as possible CHF and recent echo showed normal EF with grade 1 diastolic dysfunction. Blood gas was notable for hypoxia. Partial renal profile was normal. On arrival to the ICU, the patient was ventilating on CPAP with an oxygen saturation of 90%, heart rate was in the 120s and blood pressure 100/61. Airway exam was limited secondary to need to keep CPAP on for oxygenation, but patient did have a short, thick neck and possible shortened thyromental distance. The patient was preoxygenated with his CPAP on 100%, positioned with chest rolls under his shoulders and elevated in the bed. He was given 20 mg of etomidate followed by 120 mg of succinylcholine IV push. He was immediately intubated with an 8.5 ETT using a glidescope with #3 blade. I had a grade 1 view and the tube was advanced easily into the airway. The tube was advanced to 25 cm at the gums and the balloon inflated. The patient had bilateral breath sounds and appropriate color change with CO2 detector. Intubation was atraumatic. The pt was hemodynamically stable throughout and tolerated the procedure well without apparent complications. Post placement CXR was ordered by the ICU. Christel Barraza MD, PhD Anesthesiology
[2018-03-03] MEDS: MIDAZOLAM 125MG/250ML D5W 250 ML IV PRN (03:24)
[2018-03-03] MEDS: FENTANYL 1250MCG/250ML NSS 250 ML IV PRN ×2 (03:25→19:51)
[2018-03-03] MEDS ORDERED: CISATRACURIUM BOLUS FROM BAG IV ONE (03:30)
--- NOTE | 2018-03-03 04:11 | Procedure Note ---
Procedure Note Procedure Date Mar 03, 2018. Procedure Description Procedure Name: right arterial Catheter insertion Procedure time out: side/site verified, patient ID confirmed, correct procedure Consent obtained: emergent consent implied Time of procedure: 05:00 Performed by: physician muck hauler Indications: diagnostic, therapeutic Contraindications: none Description: Using sterile technique; the right radial artery was cleaned with a chloro- hexadine scrub after adequate palpation and visualization with the ultrasound, a finder needle with overlaying catheter was then used with approach at a 45* angle until a flash was obtained with direct visualization on ultrasound. Using Seldinger technique, there was initially no difficulty passing the guide wire, on the second attempt the guide wire was then passed successfully into the artery and the catheter was threaded over the guide wire; which was then removed. Arterial blood was seen pulsating from catheter tip and a luer lock valve was attached to the catheter. The A-line catheter was then secured with a stat lock and covered with a sterile surgical dressing. Pt was reassessed and no evidence of hematoma was appreciated. The tubing was placed between the first and second fingers and taped to the forearm. Pt tolerated the procedure well with no complications. Consent was emergent and confirmed with Dr. London. Complications: none Patient tolerated procedure: well Post-procedure vital signs: reviewed and stable Central Line Procedure time out: side/site verified, patient ID confirmed, sterile procedure used Consent obtained: emergent consent implied Time of procedure: 03:45 Performed by: physician muck hauler Indications: poor venous access, central drug admin. Prep: chlorhexadine prep, sterile drape, sterile procedures used Anesthesia: local injection, lidocaine 1% without epi Volume anesthetic (ml's): 5 Central line lumen: triple Central line location: internal jugular (R) Additional details: percutaneous placement, ultrasound guidance, Selinger technique used, line sutured, good blood return Complications: none Patient tolerated procedure: well Post-procedure vital signs: reviewed and stable Comments: Consent was obtained prior to procedure. Indication, risks, and benefits were explained at length. Procedure: Procedure was performed under strict sterile field in O.R. fashion. The right neck and chest were cleaned with chloroprep scrub and the pt was draped in sterile fashion. The internal jugular vein was identified using ultrasound. After anesthetizing the area with 5cc of lidocaine, venous blood was withdrawn after accessing the vein under ultrasound guidance. The syringe was removed and a guide wire was advanced into the introducer needle.The dilator was advanced after being exchanged for the introducer needle. After appropriate dilation was obtained, the dilator was removed and the central catheter was placed over the guide wire using Seldinger technique. The wire was removed intact and the catheter was sutured at 17cm. A surgical dressing was placed over the catheter with a biofilm shield in place. At the time of the procedure each port was aspirated and then flushed properly. Pt tolerated the procedure well with no complications. Post procedure x-ray was completed, placement was appropriate and no pneumothorax was noted.
[2018-03-03] MEDS: CISATRACURIUM BESYLATE INJ 40 MG in SODIUM CHLORIDE 0.9% 100ML 80 ML IV PRN ×3 (04:50→20:48)
[2018-03-03] MEDS: PANTOprazole INJ 40 MG in SYRINGE 0 ML IV SCH ×2 (04:51→11:17)
[2018-03-03] MEDS: PIPERACILL/TAZOBAC IV 4.5 GM in DEXTROSE 5% 100ML 100 ML IV SCH ×3 (04:52→19:21)
[2018-03-03 05:10] LABS: BASO % 0.1 %; BASO ABS # 0.02 K/uL (0-0.2); IG# 0.29 K/uL (0.00-0.02); LYMPH % 7.5 %; LYMPH ABS # 2.15 K/uL (1.2-3.4); MONO % 9.1 %; NEUT % 82.3 %; NEUT ABS # 23.58 K/uL (1.4-6.5)
[2018-03-03 05:15] LABS: CALCIUM 9.2 mg/dl (8.5-10.1); CREATININE 1.78 mg/dl (0.60-1.40); PHOSPHORUS 7.1 mg/dl (2.5-4.9); POTASSIUM 4.6 mmol/L (3.5-5.1)
[2018-03-03] MEDS: SULFAMETHOXAZOLE/TRIMETHOPRIM 200MG/40MG/5ML SUSP PO SCH (06:03)
[2018-03-03] MEDS: INSULIN ASPART 100 UNITS/ML 3 ML PEN SC SCH ×4 (06:05→23:38)
[2018-03-03 06:32] LABS: HEMATOCRIT 40.4 % (42-52); HEMOGLOBIN 13.9 g/dL (14.0-18.0); MEAN CELL VOLUME 98.1 fL (80-100); MEAN CORPUSCULAR HEMOGLOBIN 33.3 pg (25-34); WHITE BLOOD COUNT 28.64 K/uL (4.8-10.8)
[2018-03-03 06:33] LABS: MEAN CORPUSCULAR HGB CONC 33.9 g/dl (32-36); MEAN PLATELET VOLUME 10.2 fL (7.4-10.4); PLATELET COUNT 228 K/uL (130-400); RED CELL DISTRIBUTION WIDTH CV 13.3 % (11.5-14.5); RED CELL DISTRIBUTION WIDTH SD 47.6 fL (36.4-46.3)
[2018-03-03] MEDS: LEValbuterol HFA 15GM INHALER INH SCH ×4 (07:20→19:56)
[2018-03-03] MEDS: IPRATROPIUM BROMIDE HFA INHALER INH SCH ×4 (07:20→19:57)
--- NOTE | 2018-03-03 07:25 | DIAGNOSTIC IMAGING REPORT ---
CHEST ONE VIEW PORTABLE CLINICAL HISTORY: 52 years-old Male presenting with Intubation/OG Tube Placement. TECHNIQUE: Portable upright AP view of the chest was obtained. COMPARISON: 03/02/2018. FINDINGS: Endotracheal tube terminates in the mid thoracic trachea 3.4 cm from the raad. Right internal jugular central venous catheter terminates in the upper SVC. Orogastric tube descends below the diaphragm, terminus not visualized. Cardiac silhouette enlarged with significant distortion of the cardiac mediastinal silhouette secondary to scoliotic curvature of the spine. Obscuration of the left heart border secondary to extensive left lung opacity. Redemonstration of extensive bilateral dense opacities greatest throughout the left lung with minimal sparing of the right lung base. Pulmonary vasculature is significantly enlarged. A left pleural effusion may be present. No large pneumothorax. 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 Upper abdomen normal. IMPRESSION: 1. Lines and tubes appropriately positioned. Terminus of the oral gastric tube not visualized. 2. Diffuse bilateral severe pulmonary infiltrates. This could represent diffuse alveolar damage, multifocal infection, or severe pulmonary edema. 3. Cardiomegaly with apparent volume overload. Electronically signed by: Cory Bradford M.D. 03/03/2018 7:24 AM Dictated Date/Time: 03/03/2018 6:52 AM
--- NOTE | 2018-03-03 08:05 | Critical Care Progress Note ---
Critical Care Progress Note Date of Service Mar 03, 2018. Attending Dr. London Subjective Mr. Winchester is currently sedated and on a mechanical ventilator. He is unable to provide a history. Overnight, Mr. Winchester had increasing oxygen requirements throughout the night. He became increasingly tachypneic and tachycardic, despite his FiO2 being increased to 70%. His P:F ratio had declined overnight. He was subsequently intubated and placed on a mechanical ventilator. Objective GENERAL: Sedated with paralytics, on mechanical ventilator. Right triple lumen IJ and right arterial line in place. HENT: Normocephalic, atraumatic. RESPIRATORY: Decreased breath sounds bilaterally. CARDIAC: Regular rate, normal rhythm. ABDOMEN: Soft, non-distended. No tenderness to palpation. LOWER EXTREMITIES: Calves are equal size bilaterally and non-tender. No edema. Assessment & Plan Mr. Winchester is a 52-year-old male with a history of asthma & COPD who was admitted to the ICU for acute on chronic respiratory failure with noted hypoxia and respiratory distress. He was unable to tolerate BiPAP and has been maintained on 5L of oxygen via oxymask. 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 Neuro: Sedation - sedated with Versed, BIS = 45 Pain nimbex for paralytic, and fentanyl prn for pain - TOF 2-3/4 Chronic Pain - Continue Gabapentin Depression - Continue Paxil Resp: Hypersensitivity Pneumonitis - concern for ARDS given P:F ratio of 197 (improved from 130 yesterday) and xray findings of diffuse bilateral severe pulmonary infiltrates - increased steroids from 30mg prednisone BID to 40mg IV q8h of methylpred - bronchoscopy performed -> minimal secretions -> diffuse alveolar hemorrhages noted -> bronchial washings obtained for culture and Gram stain, cytology, fungal cx, AFB stain and culture and silver stain - pulmonary consulted - thank you for recs -> likely a flare up of his hypersensitivity pneumonitis -> possible secondary diagnosis given elevated WCC -> awaiting legionella antigen and mycoplasma antibodies - thank you to ID for consult -> LDH elevated at 538, awaiting silver stain for pneumocystis carinii -> add legionalla urinary antigen CV: - Dyslipidemia -> Continue Statin - Continue home ASA - Appears to have vascular overload noted on CXR with Neg BNP - ECHO showed EF = 65-70% w/grade 1 diastolic dysfunction. No wall motion abnormalities. - hold Lasix 20mg BID IV in setting of renal dysfunction - serial troponins negative Fluids/Renal: - Creatinine worsened to 1.78, with a BUN of 25 - hold lasix, d/c bactrim as it may have resulted in the creatinine increase - UA did not reveal any granular casts suggestive of ATN - pt receiving 1/2-1L of fluid with IV medications ID: - Leukocytosis noted, but pt has been on steroids. Afebrile - Continue Zosyn IV, Azithro PO - add in IV vancomycin and d/c bactrim - Blood Cultures pending - preliminary negative GI/Nutrition: - initiate trickle feeds as per nutrition GERD - Pantoprazole 40mg IV daily Heme - stable: - Hgb 13.9, MCV normal - Plts 228 Endocrine: - HbA1c = 6.5% - Accu-Checks per protocol, SSI ordered - blood sugar = 138 - 184 Access: Right triple lumen IJ and right radial A line DVT Prophylaxis: Lovenox changed to 5,000 units heparin q8h in setting of MAHAD Code status: FULL Dr. Tamayo was resident physician during care of patient. I separately evaluated patient and did history and exam. I discussed the case with the resident and generally agree with the findings and plan. Data Medications: Current Inpatient Medications Medications (Trade) Dose Ordered Sig/Nemo Route Start Time Stop Time Status Last Admin Dose Admin Miscellaneous Information (Icu Protocol For Hyperglycemia) 1 ea PRN PRN N/A 03/01/18 22:45 03/03/18 22:44 03/02/18 12:08 1 EA Aspirin (Ecotrin Tab) 325 mg DAILY PO 03/02/18 09:00 04/01/18 08:59 03/02/18 07:51 325 MG Gabapentin (Neurontin Cap) 100 mg BID PO 03/02/18 09:00 04/01/18 08:59 03/02/18 20:39 100 MG Paroxetine HCl (pAXil TAB) 40 mg DAILY PO 03/02/18 09:00 04/01/18 08:59 03/02/18 07:52 40 MG Pravastatin Sodium (Pravachol Tab) 40 mg HS PO 03/02/18 21:00 04/01/18 20:59 03/02/18 20:39 40 MG Ranitidine HCl (zANTac TAB) 300 mg BID PO 03/02/18 09:00 04/01/18 08:59 03/02/18 20:40 300 MG Furosemide 20 mg/ Syringe 2 ml @ 4 mls/min BID IV 03/02/18 09:00 04/01/18 08:59 03/02/18 20:38 4 MLS/MIN Levalbuterol (Xopenex 0.63 Mg/ 3 Ml Neb) 0.63 mg Q4H PRN INH 03/01/18 23:15 03/31/18 23:14 03/02/18 01:58 0.63 MG Azithromycin (Zithromax Tab) 500 mg DAILY@2100 PO 03/02/18 21:00 03/09/18 20:59 03/02/18 20:40 500 MG Piperacillin Sod/ Tazobactam Sod 4.5 gm/Dextrose 120 ml @ 30 mls/hr Q8H IV 03/02/18 04:00 03/09/18 03:59 03/03/18 04:52 30 MLS/HR Miscellaneous Information (Consult) 1 ea UD PRN N/A 03/01/18 23:15 03/31/18 23:14 Enoxaparin Sodium (Lovenox Inj) 40 mg QAM SQ 03/02/18 09:00 04/01/18 08:59 03/02/18 07:53 40 MG Acetaminophen (Tylenol Tab) 1,000 mg Q8H PRN PO 03/01/18 23:45 03/31/18 23:44 Potassium Chloride (Klor-Con Tab) 20 meq BID PO 03/02/18 09:00 04/01/18 08:59 03/02/18 20:39 20 MEQ Lorazepam (Ativan Inj) 1 mg Q6H PRN IV 03/02/18 09:45 04/01/18 09:44 03/02/18 20:52 1 MG Glucose (Glucose 40% Gel) 15-30 GRAMS 15 GRAMS... UD PRN PO 03/02/18 12:45 04/01/18 12:44 Glucose (Glucose Chew Tab) 4-8 Tablets 4 Tabl... UD PRN PO 03/02/18 12:45 04/01/18 12:44 Dextrose (Dextrose 50% 50ML Syringe) 25-50ML 25ML FOR ... UD PRN IV 03/02/18 12:45 04/01/18 12:44 Glucagon (Glucagon Inj) 1 mg UD PRN IM 03/02/18 12:45 04/01/18 12:44 Carbohydrates (Carbohydrates For Hypoglycemia) 15-30 GRAMS 15 grams if BSG 54-69... UD PRN PO 03/02/18 12:45 04/01/18 12:44 Miscellaneous Information (Consult Glycemic Management Pharmacy) 1 ea UD PRN N/A 03/02/18 12:45 04/01/18 12:44 Insulin Aspart (novoLOG ASPART) SLIDING SCALE G... Q6H SC 03/02/18 12:45 04/01/18 12:44 03/03/18 06:05 1 UNITS Prednisone (PredniSONE TAB) 30 mg BID PO 03/02/18 21:00 04/01/18 20:59 03/02/18 20:40 30 MG Trimethoprim/ Sulfamethoxazole (Septra Susp) 46 ml Q6H PO 03/02/18 14:00 03/16/18 08:01 03/02/18 20:00 46 ML Morphine Sulfate (MoRPHine SULFATE INJ) 2 mg Q4H PRN IV 03/02/18 23:15 03/16/18 23:14 03/02/18 23:47 2 MG Ondansetron HCl (Zofran Inj) 4 mg Q6H PRN IV 03/02/18 23:45 04/01/18 23:44 Fentanyl Citrate 250 ml @ 0 mls/hr Q0M PRN IV 03/03/18 02:59 03/17/18 02:58 03/03/18 03:25 10 MLS/HR Midazolam HCl 250 ml @ 0 mls/hr Q0M PRN IV 03/03/18 02:59 04/02/18 02:58 03/03/18 03:24 4 MLS/HR Pantoprazole Sodium 40 mg/ Syringe 10 ml @ 5 mls/min DAILY@1100 IV 03/03/18 03:30 04/02/18 03:29 03/03/18 04:51 5 MLS/MIN Cisatracurium Besylate 40 mg/ Sodium Chloride 100 ml @ 0 mls/hr Q0M PRN IV 03/03/18 03:30 04/02/18 03:29 03/03/18 04:50 14.5 MLS/HR Ipratropium [place]pson (Atrovent Hfa Inhaler) 4 puffs QIDR INH 03/03/18 08:00 04/02/18 07:59 Levalbuterol (Xopenex Hfa Inhaler) 4 puffs QIDR INH 03/03/18 08:00 04/02/18 07:59 Vital Signs: Date Time Temp Pulse Resp B/P (MAP) Pulse Ox O2 Delivery O2 Flow Rate FiO2 03/03/18 07:16 40 03/03/18 06:30 101 20 104/67 (79) 93 Mechanical Ventilator 03/03/18 06:00 103 26 99/69 (79) 93 Mechanical Ventilator 03/03/18 05:30 105 26 95/70 (78) 93 Mechanical Ventilator 03/03/18 05:25 50 03/03/18 04:30 140 24 125/51 (75) 83 Mechanical Ventilator 03/03/18 04:10 37.3 124 20 127/88 (101) 87 03/03/18 04:00 Mechanical Ventilator 03/03/18 03:15 145 24 107/85 (92) 03/03/18 03:15 50 03/03/18 03:00 121 20 153/105 (121) 90 Mechanical Ventilator 03/03/18 02:55 125 141/96 (111) 03/03/18 02:39 75 03/03/18 02:00 122 28 103/86 (92) 88 CPAP 03/03/18 01:45 120 89 70 03/03/18 01:00 122 30 141/76 (97) 89 CPAP 03/03/18 00:58 70 03/03/18 00:07 36.8 121 36 100/63 (75) 88 CPAP 55 03/02/18 23:59 55 03/02/18 23:32 121 91 60 03/02/18 22:00 110 29 145/93 (110) 90 BiPAP 55 03/02/18 21:00 101 90 55 03/02/18 20:00 90 Oxymask 5.0 03/02/18 20:00 36.7 104 24 130/82 (98) 90 Oxymask 5.0 03/02/18 19:07 100 24 92 Mask 5.0 03/02/18 18:00 101 26 131/86 (101) 88 Oxymask 5.0 03/02/18 16:00 36.6 98 22 103/84 (90) 89 Oxymask 5.0 03/02/18 16:00 89 Oxymask 5.0 03/02/18 14:00 86 20 130/104 (113) 91 Oxymask 5.0 03/02/18 12:00 89 22 111/83 (92) 92 Nasal Cannula 03/02/18 12:00 92 Oxymask 5.0 03/02/18 11:06 91 22 90 Mask 5.0 03/02/18 11:00 88 20 129/77 (82) 90 03/02/18 10:00 111 19 127/76 (101) 93 03/02/18 10:00 20 90 Oxymask 5.0 03/02/18 09:00 85 19 118/74 (101) 90 03/02/18 08:00 Oxymask 03/02/18 08:00 92 Oxymask 5.0 03/02/18 08:00 91 21 125/81 (100) 92 03/02/18 08:00 36.6 Laboratory Results: Last 24 Hours Test 03/02/18 08:58 03/02/18 11:56 03/02/18 14:03 03/02/18 16:17 Blood Gas Sample Site R Radial Bedside Blood Gas pH (LAB) 7.45 Bedside Blood Gas pCO2 (LAB) 43 mmHg Bedside Blood Gas pO2 (LAB) 60 mmHg Bedside Blood Gas HCO3 (LAB) 30 meq/L Bedside Blood Gas Total CO2 31 mEq/l Bedside Blood Gas Base Excess (LAB) 6.0 meq/L Bedside Blood Gas O2 Saturation 92.0 % [place] Test Pass Oxygen Delivery Device Other Bedside FiO2 0 % Pro-B-Type Natriuretic Peptide 50 pg/ml Bedside Glucose 173 mg/dl Troponin I < 0.015 ng/ml Test 03/02/18 17:56 03/02/18 23:54 03/03/18 00:25 03/03/18 00:46 Bedside Glucose 162 mg/dl 138 mg/dl Troponin I < 0.015 ng/ml Blood Gas Sample Site L Radial Bedside Blood Gas pH (LAB) 7.38 Bedside Blood Gas pCO2 (LAB) 60 mmHg Bedside Blood Gas pO2 (LAB) 55 mmHg Bedside Blood Gas HCO3 (LAB) 35 meq/L Bedside Blood Gas Total CO2 37 mEq/l Bedside Blood Gas Base Excess (LAB) 10.0 meq/L Bedside Blood Gas O2 Saturation 86.0 % [place] Test Pass Oxygen Delivery Device BIPAP Bedside FiO2 60 % Test 03/03/18 02:35 03/03/18 04:35 03/03/18 04:38 03/03/18 04:44 Blood Gas Sample Site L Radial L Radial L Radial Bedside Blood Gas pH (LAB) 7.33 6.97 7.10 Bedside Blood Gas pCO2 (LAB) 65 mmHg 107 mmHg 83 mmHg Bedside Blood Gas pO2 (LAB) 56 mmHg 65 mmHg 65 mmHg Bedside Blood Gas HCO3 (LAB) 34 meq/L 25 meq/L 26 meq/L Bedside Blood Gas Total CO2 36 mEq/l 28 mEq/l 28 mEq/l Bedside Blood Gas Base Excess (LAB) 8.0 meq/L -7.0 meq/L -4.0 meq/L Bedside Blood Gas O2 Saturation 86.0 % 75.0 % 81.0 % [place] Test Pass Pass Pass Oxygen Delivery Device BIPAP Ventilator Ventilator Bedside FiO2 70 % 50 % 50 % Bedside Oxygen Rate (breaths/min) 16 16 Blood Gas Minute Ventilation 10.0 10 Blood Gas Tidal Volume 550 550 Blood Gas PEEP 16 16 White Blood Count 28.64 K/uL Red Blood Count 4.12 M/uL Hemoglobin 13.9 g/dL Hematocrit 40.4 % Mean Corpuscular Volume 98.1 fL Mean Corpuscular Hemoglobin 33.3 pg Mean Corpuscular Hemoglobin Concent 33.9 g/dl Platelet Count 228 K/uL Mean Platelet Volume 10.2 fL Neutrophils (%) (Auto) 82.3 % Lymphocytes (%) (Auto) 7.5 % Monocytes (%) (Auto) 9.1 % Eosinophils (%) (Auto) 0.0 % Basophils (%) (Auto) 0.1 % Neutrophils # (Auto) 23.58 K/uL Lymphocytes # (Auto) 2.15 K/uL Monocytes # (Auto) 2.60 K/uL Eosinophils # (Auto) 0.00 K/uL Basophils # (Auto) 0.02 K/uL RDW Standard Deviation 47.6 fL RDW Coefficient of Variation 13.3 % Immature Granulocyte % (Auto) 1.0 % Immature Granulocyte # (Auto) 0.29 K/uL Red Blood Cell Morphology Unremarkable Sodium Level 137 mmol/L Potassium Level 4.6 mmol/L Chloride Level 100 mmol/L Carbon Dioxide Level 26 mmol/L Anion Gap 11.0 mmol/L Blood Urea Nitrogen 25 mg/dl Creatinine 1.78 mg/dl Est Creatinine Clear Calc Drug Dose 56.6 ml/min Estimated GFR () 49.4 Estimated GFR (Non- 42.6 BUN/Creatinine Ratio 14.1 Random Glucose 169 mg/dl Calcium Level 9.2 mg/dl Phosphorus Level 7.1 mg/dl Magnesium Level 2.6 mg/dl Test 03/03/18 05:22 03/03/18 05:58 03/03/18 06:01 Blood Gas Sample Site Art Line Art Line Bedside Blood Gas pH (LAB) 7.50 7.53 Bedside Blood Gas pCO2 (LAB) 38 mmHg 37 mmHg Bedside Blood Gas pO2 (LAB) 83 mmHg 72 mmHg Bedside Blood Gas HCO3 (LAB) 29 meq/L 31 meq/L Bedside Blood Gas Total CO2 30 mEq/l 32 mEq/l Bedside Blood Gas Base Excess (LAB) 6.0 meq/L 8.0 meq/L Bedside Blood Gas O2 Saturation 97.0 % 96.0 % [place] Test NA NA Oxygen Delivery Device Ventilator Ventilator Bedside Oxygen Rate (breaths/min) 35 26 Blood Gas Minute Ventilation 18.1 13.4 Bedside FiO2 50 % 40 % Blood Gas Tidal Volume 550 550 Blood Gas PEEP 16 16 Bedside Glucose 184 mg/dl Resident Tracking Resident Involvement: Resident Care Provided Care Provided: Adult Hospital Medicine
[2018-03-03] MEDS: ASPIRIN 325 MG ECTAB PO SCH (08:31)
[2018-03-03] MEDS: RANITIDINE HCL 150 MG TAB PO SCH (08:31)
[2018-03-03] MEDS: GABAPENTIN 100 MG CAP PO SCH ×2 (08:33→20:48)
[2018-03-03] MEDS: ENOXAPARIN 40 MG/0.4 ML SYR SQ SCH (08:34)
[2018-03-03] MEDS: PAROXETINE 20 MG TAB PO SCH (08:34)
[2018-03-03] MEDS ORDERED: VANCOMYCIN CONSULT ACTIVE PRN (09:00)
[2018-03-03] MEDS: METHYLPREDNISOLONE IV 40 MG in SYRINGE 0 ML IV SCH ×2 (09:21→18:51)
[2018-03-03] MEDS: ASPIRIN 324 MG CHEW PO SCH (09:24)
[2018-03-03] MEDS ORDERED: VANCOMYCIN IV 2,000 MG in SODIUM CHLORIDE 0.9% 500ML 500 ML IV ONE (09:30)
--- NOTE | 2018-03-03 10:53 | Progress Note ---
Progress Note Date of Service Mar 03, 2018. Progress Note ID Consult Dictated #[id number] A/P: 1. PNA -Sputum culture pending, follow results -Continue abx -Legionella antigen pending, mycoplasma pending, continue atypical coverage -Can check LDH if concerned for PCP, but sputum culture/silver stain best -Thank you
--- NOTE | 2018-03-03 12:23 | Pharmacy Progress Note ---
Glycemic Control Intl Consult Date of Service Mar 03, 2018. Scope Glycemic Pharmacist consulted by Dr London on 03/02 for glycemic control and to write orders per [facility] inpatient glycemic control protocol Objective Weight (Kilograms): 99.000 Accuchecks BSG (last 24hrs): Test 03/02/18 17:56 03/02/18 23:54 03/03/18 04:38 03/03/18 05:58 Bedside Glucose 162 mg/dl (70-99) 138 mg/dl (70-99) 184 mg/dl (70-99) Random Glucose 169 mg/dl (70-99) Laboratory Data (last 24hrs) Test 03/03/18 04:38 Anion Gap 11.0 mmol/L BUN/Creatinine Ratio 14.1 Blood Urea Nitrogen 25 mg/dl Creatinine 1.78 mg/dl Potassium Level 4.6 mmol/L Sodium Level 137 mmol/L White Blood Count 28.64 K/uL Red Blood Count 4.12 M/uL Hemoglobin 13.9 g/dL Hematocrit 40.4 % Mean Corpuscular Volume 98.1 fL Mean Corpuscular Hemoglobin 33.3 pg Mean Corpuscular Hemoglobin Concent 33.9 g/dl Platelet Count 228 K/uL Mean Platelet Volume 10.2 fL Neutrophils (%) (Auto) 82.3 % Lymphocytes (%) (Auto) 7.5 % Monocytes (%) (Auto) 9.1 % Eosinophils (%) (Auto) 0.0 % Basophils (%) (Auto) 0.1 % Neutrophils # (Auto) 23.58 K/uL Lymphocytes # (Auto) 2.15 K/uL Monocytes # (Auto) 2.60 K/uL Eosinophils # (Auto) 0.00 K/uL Basophils # (Auto) 0.02 K/uL Recent Pertinent Medications Outpatient Anti-diabetic Regimen: * none * A1c = 6.5 % 12/02/17 The patient is currently receiving: * Correctional Insulin: Novolog Correction per scale ACHS Goal Range: Low 120 mg/dL - High 160 mg/dL Correction Factor: 25 mg/dL/unit * Prandial insulin: Per carb ratio of 1 unit per 8 grams CHO consumed Risk Factors for Insulin Resistance: * Steroids: solumedrol IV 40mg q8h * Infection: yes * Pressors: * IVF: * Recent Surgery * Diet: NPO * Mechanical Ventilation: yes Assessment & Plan ASSESSMENT: * Patient presenting with moderate steroid induced hyperglycemia. Will add a small one time dose of basal insulin in addition to correctional insulin. Continuation will be adjusted as necessary based on response and continuation for high dose steroids. PLAN FOR INPATIENT GLYCEMIC CONTROL: * Basal insulin with LANTUS 10 units SQ once * Correctional Insulin with NOVOLOG / REGULAR per scale ACHS or Q6hrs while NPO * Goal Range: Low 120 mg/dL - High 160 mg/dL * Correction Factor: 25 mg/dL/unit * Nutritional / Prandial insulin per carb ratio of 1 unit per 8 grams CHO consumed * Please note that the plan above was derived based on current level of insulin resistance and hospital stress. These recommendations are appropriate for inpatient admission only. Plan of care upon discharge will need to be reassessed to avoid potential outpatient hypo/hyperglycemia. Thank you.
--- NOTE | 2018-03-03 12:35 | INFECT. DISEASE CONSULTATION ---
DATE OF CONSULTATION: 03/03/2018 Infectious disease consult. HISTORY OF PRESENT ILLNESS: This is a 52-year-old gentleman who was admitted to the hospital with acute worsening of shortness of breath. He does have a history of severe COPD on 3 liters of oxygen at home, obstructive sleep apnea, current tobacco use and recently diagnosed with hypersensitivity pneumonitis for which he is being followed by pulmonary and is on chronic steroids. He was found in the ER to have bilateral infiltrates and had worsening hypoxia leading to intubation. He currently is sedated on the ventilator and unable to provide any review of systems. He has been placed on azithromycin and Zosyn. He is also on IV steroids. He has been afebrile since admission. He initially had a leukocytosis of 12. This has increased to 28,000 overnight and his creatinine has increased to 1.7. Blood cultures are negative so far. Flu swab was negative. His procalcitonin was negative. His most recent chest x-ray was done this morning and continues to show diffuse infiltrates. Infectious diseases was asked to see this patient in consultation for questionable PCP secondary to underlying steroids. He was to be started on Bactrim yesterday, but I do not see that a dose was given. He appears to be tolerating broad spectrum antibiotics. PAST MEDICAL HISTORY: His medical history is significant for asthma, kidney stones, chronic back pain, COPD on 3 liters nasal cannula oxygen at home with depression, high cholesterol, GERD, migraines, obstructive sleep apnea and scoliosis. PAST SURGICAL HISTORY: Significant for colonoscopy, back surgery, kidney stone removal, nasal surgery, tonsillectomy, ureteral stent placement and spinal surgery secondary to scoliosis. FAMILY HISTORY: Noncontributory. SOCIAL HISTORY: Significant for daily tobacco use. He does drink alcohol occasionally. There is no history of drug use. There is no history of recent sick contacts. ALLERGIES: There are no known drug allergies. MEDICATIONS: Vancomycin, aspirin, Solu-Medrol, Atrovent, Xopenex, Protonix, fentanyl, Zofran, morphine, Pravachol, azithromycin, Ativan, Paxil, Neurontin, Lovenox, Zosyn. PHYSICAL EXAMINATION: VITAL SIGNS: He has been afebrile since admission to the hospital, pulse 101, respiratory rate 20, blood pressure 104/67, oxygen saturation is 93% on 40% FiO2. GENERAL: He is sedated on the ventilator. LUNGS: Decreased bilaterally. HEART: Regular. ABDOMEN: Nondistended. There is no edema. SKIN: Without rash. There is a right IJ triple lumen catheter in place. LABORATORY STUDIES: CBC today, white blood cell count 28.6, hemoglobin 13.9, platelets 228. Chemistry panel: Sodium 137, potassium 4.6, chloride 100, BUN 25, creatinine 1.7, glucose 184. Procalcitonin is negative. Flu swab is negative. Mycoplasma antibodies are pending. Blood cultures from the 6th are no growth to date. MRSA swab was negative. ASSESSMENT AND PLAN: Bilateral infiltrates. He will remain on coverage for atypical pathogens, I will send a legionella urinary antigen as well. With regards to pneumocystis carinii pneumonia an LDH could be sent and if elevated, would be suspicious for pneumocystis carinii pneumonia; however, a bronchoscopy with culture including silver stain would be ideal for diagnosis. He will remain on empiric antibiotics and sputum culture is pending at this time. Thank you for this consultation.
--- NOTE | 2018-03-03 12:53 | Procedure Note ---
Procedure Note Date of Service Mar 03, 2018. Procedure Note Procedure date: March 03, 2018 Procedure: fiberoptic bronchoscopy Pre-procedure Diagnosis: Are not Post-procedure Diagnosis: same as above Prior to Procedure: Informed Consent: The risks, benefits, indications, potential complications, and alternatives were explained to the patient's and informed consent obtained. Attending Staff: Ksenia London DO Resident/APC: Vijaya Benton Skin Prep: Not applicable Anesthesia: Continuous infusion of Versed and fentanyl, continuous neuromuscular blockade, BIS monitoring Indications: 52-year-old male with COPD, hard's worsening, history of eosinophilic pneumonitis. The identity of the patient was confirmed and a bedside time out was performed. Description of Procedure: Fiberoptic bronchoscopy was performed via endotracheal tube. Bronchioalveolar lavage of the left lingular lobe was performed in 350 mL aliquots to evaluate diffuse alveolar hemorrhage which did appear to be present. Findings included: Minimal secretion burden in both lobes , excessive dynamic airway collapse is noted on previous bronchoscopy as listed in pulmonary consultation was again noted Complications: None Specimens: Bronchial washings sent for culture and Gram stain, cytology, fungal elements, and AFB stain and culture and silver stain. Estimated blood loss: Zero
[2018-03-03] MEDS ORDERED: LANTUS PER UNIT CHARGE SQ ONE (13:00)
[2018-03-03] MEDS ORDERED: PEPTAMEN INTENSE VHP 1000ML BAG OG PRN (16:30)
[2018-03-03] MEDS ORDERED: CLINDAMYCIN IV 900 MG in DEXTROSE 5% 100ML 100 ML IV SCH (20:00)
[2018-03-03] MEDS: AZITHROMYCIN 250 MG TAB PO SCH (20:48)
[2018-03-03] MEDS: PRAVASTATIN SOD 40 MG TAB PO SCH (20:48)
--- NOTE | 2018-03-03 20:52 | Progress Note ---
Medicine Progress Note Date & Time of Visit: Mar 03, 2018 at 20:42. Subjective Pt was seen and examined Sedated and intubated on vent support at bedside Objective Last 8 Hrs Date Time Temp Pulse Resp B/P (MAP) Pulse Ox O2 Delivery O2 Flow Rate FiO2 03/03/18 20:00 30 18 20:00 92 Mechanical Ventilator 30 03/03/18 19:58 30 18 18:00 36.6 18 17:50 70 22 101/66 (75) 110/56 18 17:45 72 22 102/68 (77) 113/58 18 17:40 72 22 106/71 (80) 114/60 18 17:35 72 22 102/69 (78) 117/60 18 17:31 69 22 119/82 (91) 90 126/68 18 17:30 30 18 17:10 69 95/61 (65) 93 96/44 18 17:05 75 101/67 (74) 92 109/54 /8/18 17:00 76 103/68 (74) 93 107/53 /8/18 16:55 75 104/71 (80) 92 111/54 /8/18 16:50 75 101/65 (74) 92 107/51 6/8/18 16:45 76 102/67 (78) 92 109/53 /8/18 16:40 76 98/64 (74) 92 107/51 6/8/18 16:35 75 103/69 (74) 92 110/53 6/8/18 16:30 75 102/70 (76) 92 107/51 6/8/18 16:25 77 106/69 (81) 92 110/53 6/8/18 16:20 76 102/67 (73) 92 109/52 6/8/18 16:15 74 101/68 (78) 91 106/49 6/8/18 16:10 77 109/69 (77) 92 114/54 6/8/18 16:05 78 107/72 (79) 92 116/54 6/8/18 16:00 30 18 16:00 81 109/70 (76) 92 117/54 6/8/18 16:00 94 Mechanical Ventilator 30 03/03/18 15:00 37.3 84 22 114/76 (83) 92 124/60 03/03/18 14:40 30 03/03/18 14:00 37.3 84 22 114/76 (83) 92 124/60 03/03/18 13:00 37.3 84 22 114/76 (83) 92 124/60 03/03/18 12:55 84 114/76 (83) 92 124/60 03/03/18 12:50 82 116/78 (91) 93 126/63 03/03/18 12:45 81 116/80 (91) 95 125/61 03/03/18 12:45 30 Physical Exam: General- No acute distress Head- atraumatic Eyes- PERRL, EOMI ENT- Intubated Neck- supple, no JVD Lungs- clear to auscultation Heart- regular rhythm; no murmur Abdomen- normal bowel sounds, soft Extremities- no calf tenderness Neuro- alert, oriented x 3; PERRL Skin- warm & dry Laboratory Results: Last 24 Hours Test 03/02/18 23:54 03/03/18 00:25 03/03/18 00:46 03/03/18 02:35 Bedside Glucose 138 mg/dl Troponin I < 0.015 ng/ml Blood Gas Sample Site L Radial L Radial Bedside Blood Gas pH (LAB) 7.38 7.33 Bedside Blood Gas pCO2 (LAB) 60 mmHg 65 mmHg Bedside Blood Gas pO2 (LAB) 55 mmHg 56 mmHg Bedside Blood Gas HCO3 (LAB) 35 meq/L 34 meq/L Bedside Blood Gas Total CO2 37 mEq/l 36 mEq/l Bedside Blood Gas Base Excess (LAB) 10.0 meq/L 8.0 meq/L Bedside Blood Gas O2 Saturation 86.0 % 86.0 % [place] Test Pass Pass Oxygen Delivery Device BIPAP BIPAP Bedside FiO2 60 % 70 % Test 03/03/18 04:35 03/03/18 04:38 03/03/18 04:44 03/03/18 05:22 Blood Gas Sample Site L Radial L Radial Art Line Bedside Blood Gas pH (LAB) 6.97 7.10 7.50 Bedside Blood Gas pCO2 (LAB) 107 mmHg 83 mmHg 38 mmHg Bedside Blood Gas pO2 (LAB) 65 mmHg 65 mmHg 83 mmHg Bedside Blood Gas HCO3 (LAB) 25 meq/L 26 meq/L 29 meq/L Bedside Blood Gas Total CO2 28 mEq/l 28 mEq/l 30 mEq/l Bedside Blood Gas Base Excess (LAB) -7.0 meq/L -4.0 meq/L 6.0 meq/L Bedside Blood Gas O2 Saturation 75.0 % 81.0 % 97.0 % [place] Test Pass Pass NA Oxygen Delivery Device Ventilator Ventilator Ventilator Bedside Oxygen Rate (breaths/min) 16 16 35 Blood Gas Minute Ventilation 10.0 10 18.1 Bedside FiO2 50 % 50 % 50 % Blood Gas Tidal Volume 550 550 550 Blood Gas PEEP 16 16 16 White Blood Count 28.64 K/uL Red Blood Count 4.12 M/uL Hemoglobin 13.9 g/dL Hematocrit 40.4 % Mean Corpuscular Volume 98.1 fL Mean Corpuscular Hemoglobin 33.3 pg Mean Corpuscular Hemoglobin Concent 33.9 g/dl Platelet Count 228 K/uL Mean Platelet Volume 10.2 fL Neutrophils (%) (Auto) 82.3 % Lymphocytes (%) (Auto) 7.5 % Monocytes (%) (Auto) 9.1 % Eosinophils (%) (Auto) 0.0 % Basophils (%) (Auto) 0.1 % Neutrophils # (Auto) 23.58 K/uL Lymphocytes # (Auto) 2.15 K/uL Monocytes # (Auto) 2.60 K/uL Eosinophils # (Auto) 0.00 K/uL Basophils # (Auto) 0.02 K/uL RDW Standard Deviation 47.6 fL RDW Coefficient of Variation 13.3 % Immature Granulocyte % (Auto) 1.0 % Immature Granulocyte # (Auto) 0.29 K/uL Red Blood Cell Morphology Unremarkable Sodium Level 137 mmol/L Potassium Level 4.6 mmol/L Chloride Level 100 mmol/L Carbon Dioxide Level 26 mmol/L Anion Gap 11.0 mmol/L Blood Urea Nitrogen 25 mg/dl Creatinine 1.78 mg/dl Est Creatinine Clear Calc Drug Dose 56.6 ml/min Estimated GFR () 49.4 Estimated GFR (Non- 42.6 BUN/Creatinine Ratio 14.1 Random Glucose 169 mg/dl Calcium Level 9.2 mg/dl Phosphorus Level 7.1 mg/dl Magnesium Level 2.6 mg/dl Test 03/03/18 05:58 03/03/18 06:01 03/03/18 07:01 03/03/18 11:40 Bedside Glucose 184 mg/dl 138 mg/dl Blood Gas Sample Site Art Line Art Line Bedside Blood Gas pH (LAB) 7.53 7.49 Bedside Blood Gas pCO2 (LAB) 37 mmHg 43 mmHg Bedside Blood Gas pO2 (LAB) 72 mmHg 79 mmHg Bedside Blood Gas HCO3 (LAB) 31 meq/L 33 meq/L Bedside Blood Gas Total CO2 32 mEq/l 34 mEq/l Bedside Blood Gas Base Excess (LAB) 8.0 meq/L 10.0 meq/L Bedside Blood Gas O2 Saturation 96.0 % 96.0 % [place] Test NA NA Oxygen Delivery Device Ventilator Ventilator Bedside Oxygen Rate (breaths/min) 26 20 Blood Gas Minute Ventilation 13.4 10.2 Bedside FiO2 40 % 40 % Blood Gas Tidal Volume 550 550 Blood Gas PEEP 16 14 Test 03/03/18 11:42 03/03/18 11:54 03/03/18 12:10 03/03/18 12:30 Blood Gas Sample Site Art Line Bedside Blood Gas pH (LAB) 7.29 Bedside Blood Gas pCO2 (LAB) 74 mmHg Bedside Blood Gas pO2 (LAB) 73 mmHg Bedside Blood Gas HCO3 (LAB) 35 meq/L Bedside Blood Gas Total CO2 37 mEq/l Bedside Blood Gas Base Excess (LAB) 8.0 meq/L Bedside Blood Gas O2 Saturation 92.0 % [place] Test NA Oxygen Delivery Device Ventilator Bedside Oxygen Rate (breaths/min) 18 Blood Gas Minute Ventilation 6.8 Bedside FiO2 30 % Blood Gas Tidal Volume 400 Blood Gas PEEP 14 Lactate Dehydrogenase 538 U/L Body Fluid Polynuclear WBCs 78.0 % Body Fluid Mononuclear Cells 22.0 % Urine Color YELLOW Urine Appearance TURBID Urine pH 5.0 Urine Specific [place] 1.024 Urine Protein NEG Urine Glucose (UA) NEG Urine Ketones NEG Urine Occult Blood 3+ Urine Nitrite NEG Urine Bilirubin NEG Urine Urobilinogen NEG Urine Leukocyte Esterase NEG Urine WBC (Auto) 1-5 /hpf Urine RBC (Auto) 10-30 /hpf Urine Hyaline Casts (Auto) 1-5 /lpf Urine Epithelial Cells (Auto) 5-10 /lpf Urine Bacteria (Auto) NEG Test 03/03/18 12:43 03/03/18 18:49 Bedside Glucose 136 mg/dl Date/Time Source Procedure Growth Status 03/03/18 12:10 Bronchial Washings Left Lingula Fungal Smear Pending Received 03/03/18 12:10 Bronchial Washings Left Lingula Fungal Culture Pending Received 03/03/18 12:10 Bronchial Washings Left Lingula Acid Fast Stain Pending Received 03/03/18 12:10 Bronchial Washings Left Lingula Mycobacterial Culture Pending Received 03/03/18 12:10 Bronchial Washings Left Lingula Gram Stain Pending Received 03/03/18 12:10 Bronchial Washings Left Lingula Bronchoalveolar Lavage Culture Pending Received Assessment & Plan ACUTE ON CHRONIC HYPOXIC RESPIRATORY FAILURE Possible related to hypersensitivity Pneumonitis CXR showed findings suggest asymmetric pulmonary edema or multifocal pneumonia. Was starting on BIPAP in the ICU Received solumedrol in the ER Steroid changed to prednisone 30mg BID Procalcitonin wayne WBC elevated Continue Zosyn IV and Bactrim adding Continue oxygen supplement and neb treatment Continue monitor in tele Pulmonology on board 03/03 Sedated and intubated on vent support Possible ARDS vs pneumocystis carinii pneumonia S/p bronch showed diffuse alveolar hemorrhage Bronchial washings sent for culture and Gram stain, cytology, fungal elements, and AFB stain and culture and silver stain. Continue abx with zosyn, bactrim, Vanco and zithromax ID on board PULMONARY EDEMA ON CXR BNP wnl Lasix on hold due to elevated creatine ECHO showed * Normal LV chamber size and wall thickness. * Normal LV systolic function, EF 65-70%. * No segmental left ventricular wall motion abnormalities are noted. * Grade I diastolic dysfunction. * Poorly visualized RV. * No significant valvular pathology. Acute Kidney failure Creatine increase to 1.7 Lasix on hold Monitor BMP SLEEP APNEA Continue CPAP / BiPAP. GERD Continue ranitidine. TOBACCO USE Counselling on smoking cessation VTE PROPHYLAXIS SQ enoxaparin. Ambulate. RESUSCITATION STATUS Full code. . Current Inpatient Medications: Current Inpatient Medications Medications (Trade) Dose Ordered Sig/Nemo Route Start Time Stop Time Status Last Admin Dose Admin Miscellaneous Information (Icu Protocol For Hyperglycemia) 1 ea PRN PRN N/A 03/01/18 22:45 03/03/18 22:44 03/02/18 12:08 1 EA Gabapentin (Neurontin Cap) 100 mg BID PO 03/02/18 09:00 04/01/18 08:59 03/03/18 08:33 100 MG Paroxetine HCl (pAXil TAB) 40 mg DAILY PO 03/02/18 09:00 04/01/18 08:59 03/03/18 08:34 40 MG Pravastatin Sodium (Pravachol Tab) 40 mg HS PO 03/02/18 21:00 04/01/18 20:59 03/02/18 20:39 40 MG Ranitidine HCl (zANTac TAB) 300 mg BID PO 03/02/18 09:00 04/01/18 08:59 Future Hold 03/02/18 20:40 300 MG Furosemide 20 mg/ Syringe 2 ml @ 4 mls/min BID IV 03/02/18 09:00 04/01/18 08:59 Future Hold 03/02/18 20:38 4 MLS/MIN Levalbuterol (Xopenex 0.63 Mg/ 3 Ml Neb) 0.63 mg Q4H PRN INH 03/01/18 23:15 03/31/18 23:14 03/02/18 01:58 0.63 MG Azithromycin (Zithromax Tab) 500 mg DAILY@2100 PO 03/02/18 21:00 03/09/18 20:59 03/02/18 20:40 500 MG Piperacillin Sod/ Tazobactam Sod 4.5 gm/Dextrose 120 ml @ 30 mls/hr Q8H IV 03/02/18 04:00 03/09/18 03:59 03/03/18 19:21 30 MLS/HR Miscellaneous Information (Consult) 1 ea UD PRN N/A 03/01/18 23:15 03/31/18 23:14 Acetaminophen (Tylenol Tab) 1,000 mg Q8H PRN PO 03/01/18 23:45 03/31/18 23:44 Lorazepam (Ativan Inj) 1 mg Q6H PRN IV 03/02/18 09:45 04/01/18 09:44 03/02/18 20:52 1 MG Glucose (Glucose 40% Gel) 15-30 GRAMS 15 GRAMS... UD PRN PO 03/02/18 12:45 04/01/18 12:44 Glucose (Glucose Chew Tab) 4-8 Tablets 4 Tabl... UD PRN PO 03/02/18 12:45 04/01/18 12:44 Dextrose (Dextrose 50% 50ML Syringe) 25-50ML 25ML FOR ... UD PRN IV 03/02/18 12:45 04/01/18 12:44 Glucagon (Glucagon Inj) 1 mg UD PRN IM 03/02/18 12:45 04/01/18 12:44 Carbohydrates (Carbohydrates For Hypoglycemia) 15-30 GRAMS 15 grams if BSG 54-69... UD PRN PO 03/02/18 12:45 04/01/18 12:44 Miscellaneous Information (Consult Glycemic Management Pharmacy) 1 ea UD PRN N/A 03/02/18 12:45 04/01/18 12:44 Insulin Aspart (novoLOG ASPART) SLIDING SCALE G... Q6H SC 03/02/18 12:45 04/01/18 12:44 03/03/18 06:05 1 UNITS Prednisone (PredniSONE TAB) 30 mg BID PO 03/02/18 21:00 04/01/18 20:59 Future Hold 03/02/18 20:40 30 MG Morphine Sulfate (MoRPHine SULFATE INJ) 2 mg Q4H PRN IV 03/02/18 23:15 03/16/18 23:14 03/02/18 23:47 2 MG Ondansetron HCl (Zofran Inj) 4 mg Q6H PRN IV 03/02/18 23:45 04/01/18 23:44 Fentanyl Citrate 250 ml @ 0 mls/hr Q0M PRN IV 03/03/18 02:59 03/17/18 02:58 03/03/18 19:51 15 MLS/HR Midazolam HCl 250 ml @ 0 mls/hr Q0M PRN IV 03/03/18 02:59 04/02/18 02:58 03/03/18 03:24 4 MLS/HR Pantoprazole Sodium 40 mg/ Syringe 10 ml @ 5 mls/min DAILY@1100 IV 03/03/18 03:30 04/02/18 03:29 03/03/18 11:17 5 MLS/MIN Cisatracurium Besylate 40 mg/ Sodium Chloride 100 ml @ 0 mls/hr Q0M PRN IV 03/03/18 03:30 04/02/18 03:29 03/03/18 08:05 16.3 MLS/HR Ipratropium Nixon (Atrovent Hfa Inhaler) 4 puffs QIDR INH 03/03/18 08:00 04/02/18 07:59 03/03/18 19:57 4 PUFFS Levalbuterol (Xopenex Hfa Inhaler) 4 puffs QIDR INH 03/03/18 08:00 04/02/18 07:59 03/03/18 19:56 4 PUFFS Aspirin (Aspirin Chew) 325 mg DAILY PO 03/03/18 09:00 04/02/18 08:59 03/03/18 09:24 324 MG Methylprednisolone Sodium Succinate 40 mg/Syringe 0.64 ml @ 1.5 mls/min Q8H IV 03/03/18 09:00 04/02/18 08:59 03/03/18 18:51 1.5 MLS/MIN Miscellaneous Information (Consult) 1 ea UD PRN N/A 03/03/18 09:00 04/02/18 08:59 Heparin Sodium (Porcine) (Heparin Sq 5000 Unit/0.5ml) 5,000 unit Q8H SQ 03/04/18 09:00 04/03/18 08:59 Vancomycin HCl 1500 mg/Sodium Chloride 530 ml @ 200 mls/hr Q18H IV 03/04/18 09:00 03/11/18 08:59 Enteral Nutritional Formula (Peptamen Intense VHP) 1,000 ml UD PRN OG 03/03/18 16:30 04/02/18 16:29 03/03/18 19:22 1,000 ML Trimethoprim/ Sulfamethoxazole / Diluent 0 ml @ 0 mls/hr QID IV 03/03/18 21:00 03/10/18 20:59 UNV Trimethoprim/ Sulfamethoxazole 368 mg/Dextrose 523 ml @ 333 mls/hr QID IV 03/03/18 21:00 03/10/18 20:59
[2018-03-03] MEDS ORDERED: DILUENT IV SCH (21:00)
[2018-03-03] MEDS ORDERED: SULFA IV SCH ×2 (21:00)
[2018-03-03] MEDS ORDERED: TRIMETH IV SCH ×2 (21:00)
[2018-03-03] MEDS ORDERED: DEXTROSE 5% IV SCH (21:00)
--- NOTE | 2018-03-03 21:52 | Pulmonology Progress Note ---
Pulmonary Progress Note Date of Service Mar 03, 2018. Attending Dr. Barker Subjective When I walked in the room patient was intubated sedated Objective Patient is intubated sedated currently on mechanical ventilation Vital signs: Stable on mechanical ventilation currently requiring 30 % FiO2 and lung volume protection protocol Respiratory: Diffuse rhonchi appreciated bilaterally Cardiac: Distant heart sounds but S1-S2 tachycardic Abdomen: Minimal bowel sounds but no hepatomegaly appreciated Medications 1. Heparin 5000 units subcu 2. Vancomycin IV 3. Azithromycin 500 mg IV 4. Aspirin 325 mg q.d. 5. Methylprednisolone 40 mg q.8 hours 6. Xopenex/Atrovent nebulizer q.i.d. 7. Pantoprazole 40 mg 8. Cisatracrium 9. Fentanyl 10. Midazolam 11. Morphine 12. Gabapentin 13. Paxil Workup WBC: 12K---29K Cr: 0.831.78 Bronchial lavage: Results pending MRSA nasal swab: DNA probe negative Blood culture (03/01/18): No growth to date Bronchial lavage cytology (03/03/18): Pending CXR: Diffuse infiltrative process LDH: 538 Assessment & Plan 52-year-old male admitted with acute on chronic hypoxic respiratory insufficiency: 1. Hypoxemia: Patient's hypoxemia is progressed and is currently requiring mechanical ventilation. The patient was based on low tidal volume protocol as his PF ratio was less than 100 by ABG. This time the patient is stable and CXR shows lines as well as ET tubes with proper position. Patient did undergo bronchoscopy earlier today and results are pending. I have called the cytopathologist and asked him to perform diff Quick/silver stain for evaluation of possible reverse imaging and/or positive signs for PCP. As the patient's LDH is elevated and he has been on immunosuppressive this is highly suggestive of a PCP pneumonia. I do suggest we initiate Bactrim at 20 mg/kg. This will most likely hamper his already tenuous renal function. I have discussed this with patient's and informed her of the hazards. Even if the bronchoscopic evaluation is negative to rule out PCP and a non HIV patient transbronchial biopsies are indicated but at this time the patient is too tenuous. If he continues to decompensate initiating acyclovir for possible even CMV induced pneumonitis would most likely be clinically indicated. Will continue to monitor. Data Medications: Current Inpatient Medications Medications (Trade) Dose Ordered Sig/Nemo Route Start Time Stop Time Status Last Admin Dose Admin Miscellaneous Information ([facility] Protocol For Hyperglycemia) 1 ea PRN PRN N/A 03/01/18 22:45 03/03/18 22:44 03/02/18 12:08 1 EA Gabapentin (Neurontin Cap) 100 mg BID PO 03/02/18 09:00 04/01/18 08:59 03/03/18 20:48 100 MG Paroxetine HCl (pAXil TAB) 40 mg DAILY PO 03/02/18 09:00 04/01/18 08:59 03/03/18 08:34 40 MG Pravastatin Sodium (Pravachol Tab) 40 mg HS PO 03/02/18 21:00 04/01/18 20:59 03/03/18 20:48 40 MG Ranitidine HCl (zANTac TAB) 300 mg BID PO 03/02/18 09:00 04/01/18 08:59 Future Hold 03/02/18 20:40 300 MG Furosemide 20 mg/ Syringe 2 ml @ 4 mls/min BID IV 03/02/18 09:00 04/01/18 08:59 Future Hold 03/02/18 20:38 4 MLS/MIN Levalbuterol (Xopenex 0.63 Mg/ 3 Ml Neb) 0.63 mg Q4H PRN INH 03/01/18 23:15 03/31/18 23:14 03/02/18 01:58 0.63 MG Azithromycin (Zithromax Tab) 500 mg DAILY@2100 PO 03/02/18 21:00 03/09/18 20:59 03/03/18 20:48 500 MG Piperacillin Sod/ Tazobactam Sod 4.5 gm/Dextrose 120 ml @ 30 mls/hr Q8H IV 03/02/18 04:00 03/09/18 03:59 03/03/18 19:21 30 MLS/HR Miscellaneous Information (Consult) 1 ea UD PRN N/A 03/01/18 23:15 03/31/18 23:14 Acetaminophen (Tylenol Tab) 1,000 mg Q8H PRN PO 03/01/18 23:45 03/31/18 23:44 Lorazepam (Ativan Inj) 1 mg Q6H PRN IV 03/02/18 09:45 04/01/18 09:44 03/02/18 20:52 1 MG Glucose (Glucose 40% Gel) 15-30 GRAMS 15 GRAMS... UD PRN PO 03/02/18 12:45 04/01/18 12:44 Glucose (Glucose Chew Tab) 4-8 Tablets 4 Tabl... UD PRN PO 03/02/18 12:45 04/01/18 12:44 Dextrose (Dextrose 50% 50ML Syringe) 25-50ML 25ML FOR ... UD PRN IV 03/02/18 12:45 04/01/18 12:44 Glucagon (Glucagon Inj) 1 mg UD PRN IM 03/02/18 12:45 04/01/18 12:44 Carbohydrates (Carbohydrates For Hypoglycemia) 15-30 GRAMS 15 grams if BSG 54-69... UD PRN PO 03/02/18 12:45 04/01/18 12:44 Miscellaneous Information (Consult Glycemic Management Pharmacy) 1 ea UD PRN N/A 03/02/18 12:45 04/01/18 12:44 Insulin Aspart (novoLOG ASPART) SLIDING SCALE G... Q6H SC 03/02/18 12:45 04/01/18 12:44 03/03/18 06:05 1 UNITS Prednisone (PredniSONE TAB) 30 mg BID PO 03/02/18 21:00 04/01/18 20:59 Future Hold 03/02/18 20:40 30 MG Morphine Sulfate (MoRPHine SULFATE INJ) 2 mg Q4H PRN IV 03/02/18 23:15 03/16/18 23:14 03/02/18 23:47 2 MG Ondansetron HCl (Zofran Inj) 4 mg Q6H PRN IV 03/02/18 23:45 04/01/18 23:44 Fentanyl Citrate 250 ml @ 0 mls/hr Q0M PRN IV 03/03/18 02:59 03/17/18 02:58 03/03/18 19:51 15 MLS/HR Midazolam HCl 250 ml @ 0 mls/hr Q0M PRN IV 03/03/18 02:59 04/02/18 02:58 03/03/18 03:24 4 MLS/HR Pantoprazole Sodium 40 mg/ Syringe 10 ml @ 5 mls/min DAILY@1100 IV 03/03/18 03:30 7/8/18 03:29 03/03/18 11:17 5 MLS/MIN Cisatracurium Besylate 40 mg/ Sodium Chloride 100 ml @ 0 mls/hr Q0M PRN IV 03/03/18 03:30 04/02/18 03:29 03/03/18 20:48 16.3 MLS/HR Ipratropium Veguita (Atrovent Hfa Inhaler) 4 puffs QIDR INH 03/03/18 08:00 04/02/18 07:59 03/03/18 19:57 4 PUFFS Levalbuterol (Xopenex Hfa Inhaler) 4 puffs QIDR INH 03/03/18 08:00 04/02/18 07:59 03/03/18 19:56 4 PUFFS Aspirin (Aspirin Chew) 325 mg DAILY PO 03/03/18 09:00 04/02/18 08:59 03/03/18 09:24 324 MG Methylprednisolone Sodium Succinate 40 mg/Syringe 0.64 ml @ 1.5 mls/min Q8H IV 03/03/18 09:00 04/02/18 08:59 03/03/18 18:51 1.5 MLS/MIN Miscellaneous Information (Consult) 1 ea UD PRN N/A 03/03/18 09:00 04/02/18 08:59 Heparin Sodium (Porcine) (Heparin Sq 5000 Unit/0.5ml) 5,000 unit Q8H SQ 03/04/18 09:00 04/03/18 08:59 Vancomycin HCl 1500 mg/Sodium Chloride 530 ml @ 200 mls/hr Q18H IV 03/04/18 09:00 03/11/18 08:59 Enteral Nutritional Formula (Peptamen Intense VHP) 1,000 ml UD PRN OG 03/03/18 16:30 04/02/18 16:29 03/03/18 19:22 1,000 ML Trimethoprim/ Sulfamethoxazole 368 mg/Dextrose 523 ml @ 333 mls/hr QID IV 03/03/18 21:00 03/03/18 23:59 03/03/18 20:48 333 MLS/HR Trimethoprim/ Sulfamethoxazole 368 mg/Dextrose 523 ml @ 333 mls/hr Q6H IV 03/04/18 03:00 03/11/18 02:59 I & O: 24-Hour Column 03/04/18 08:00 Intake Total 193 ml Output Total 450 ml Balance -257 ml Vital Signs: Date Time Temp Pulse Resp B/P (MAP) Pulse Ox O2 Delivery O2 Flow Rate FiO2 03/03/18 20:00 30 03/03/18 20:00 36.4 03/03/18 20:00 92 Mechanical Ventilator 30 03/03/18 19:58 30 03/03/18 18:00 36.6 03/03/18 17:50 70 22 101/66 (75) 110/56 18 17:45 72 22 102/68 (77) 113/58 18 17:40 72 22 106/71 (80) 114/60 18 17:35 72 22 102/69 (78) 117/60 18 17:31 69 22 119/82 (91) 90 126/68 03/03/18 17:30 30 03/03/18 17:10 69 95/61 (65) 93 96/44 18 17:05 75 101/67 (74) 92 109/54 18 17:00 76 103/68 (74) 93 107/53 18 16:55 75 104/71 (80) 92 111/54 18 16:50 75 101/65 (74) 92 107/51 18 16:45 76 102/67 (78) 92 109/53 18 16:40 76 98/64 (74) 92 107/51 18 16:35 75 103/69 (74) 92 110/53 18 16:30 75 102/70 (76) 92 107/51 18 16:25 77 106/69 (81) 92 110/53 18 16:20 76 102/67 (73) 92 109/52 18 16:15 74 101/68 (78) 91 106/49 18 16:10 77 109/69 (77) 92 114/54 18 16:05 78 107/72 (79) 92 116/54 18 16:00 30 03/03/18 16:00 81 109/70 (76) 92 117/54 6/8/18 16:00 94 Mechanical Ventilator 30 618 15:00 37.3 84 22 114/76 (83) 92 124/60 6/8/18 14:40 30 6//18 14:00 37.3 84 22 114/76 (83) 92 124/60 6/8/18 13:00 37.3 84 22 114/76 (83) 92 124/60 6/8/18 12:55 84 114/76 (83) 92 124/60 6/8/18 12:50 82 116/78 (91) 93 126/63 6/8/18 12:45 81 116/80 (91) 95 125/61 6/8/18 12:45 30 6/18 12:40 84 122/80 (89) 93 123/61 6/8/18 12:35 82 114/77 (82) 93 121/60 6/8/18 12:30 83 115/77 (83) 93 121/61 6/8/18 12:25 84 116/75 (82) 97 122/61 6/8/18 12:20 84 22 115/78 (83) 98 124/63 6/8/18 12:15 85 22 116/79 (83) 98 121/62 6/8/18 12:15 84 22 116/79 100 Mask 50 18 12:10 87 22 121/82 (92) 100 123/64 6//18 12:09 87 22 127/67 100 Mask 50 18 12:05 90 22 132/88 (100) 100 142/79 18 12:05 88 24 132/88 100 Mechanical Ventilator 138/74 6818 12:00 91 22 124/91 100 Mechanical Ventilator 100 143/75 6818 12:00 83 23 124/91 (98) 97 125/62 68/18 12:00 30 18 12:00 93 Mechanical Ventilator 30 18 11:25 87 18 120/82 (97) 95 136/62 6/8/18 11:20 88 18 119/75 (81) 95 134/60 6/8/18 11:15 89 18 126/79 (84) 95 6818 11:10 90 18 122/78 (88) 95 618 11:05 88 18 126/82 (101) 94 18 11:00 89 18 122/81 (87) 94 18 10:55 90 18 126/78 (86) 94 18 10:50 91 18 125/79 (90) 94 18 10:45 90 18 121/78 (88) 94 18 10:40 90 18 126/79 (91) 94 18 10:35 90 18 122/75 (82) 94 8/18 10:30 91 18 118/75 (80) 93 /8/18 10:25 93 18 125/78 (89) 93 18 10:20 92 18 120/76 (85) 93 18 10:15 94 18 123/79 (91) 93 18 10:10 93 18 121/78 (84) 93 18 10:05 93 18 122/77 (83) 92 18 10:00 95 18 121/73 (78) 92 6//18 09:35 97 18 121/74 (82) 92 125/59 /8/18 09:30 97 18 121/74 (89) 92 126/60 03/03/18 09:25 97 18 120/77 (88) 92 123/59 6/8/18 09:20 98 18 118/76 (88) 91 123/58 6/8/18 09:15 98 18 117/71 (82) 91 123/60 6/8/18 09:10 98 18 115/71 (81) 91 118/57 6/8/18 09:05 97 18 113/73 (82) 91 117/57 6/8/18 09:00 99 18 114/70 (81) 91 117/58 6/8/18 08:55 98 18 112/71 (81) 91 112/55 6/8/18 08:50 99 18 113/71 (80) 92 115/59 6/8/18 08:45 97 18 110/69 (80) 91 110/56 6/8/18 08:40 99 18 112/68 (79) 91 112/57 6/8/18 08:35 96 18 111/67 (75) 92 107/56 6/8/18 08:35 96 18 111/67 (75) 92 107/56 6/8/18 08:30 96 18 105/69 (76) 91 102/53 6/8/18 08:30 96 18 105/69 (76) 91 102/53 6/8/18 08:25 95 18 107/69 (76) 91 102/54 6/8/18 08:25 95 18 107/69 (76) 91 102/54 6/8/18 08:20 96 18 106/66 (73) 94 106/57 6/8/18 08:20 96 18 106/66 (73) 94 106/57 6/8/18 08:15 96 18 101/64 (75) 95 97/52 6/8/18 08:15 96 18 101/64 (75) 95 97/52 6/8/18 08:10 98 18 103/66 (75) 95 100/55 6/8/18 08:10 98 18 103/66 (75) 95 100/55 6/8/18 08:05 98 18 104/66 (78) 95 102/56 6/8/18 08:05 98 18 104/66 (78) 95 102/56 6/8/18 08:00 98 18 106/65 (72) 95 99/54 6/8/18 08:00 98 18 106/65 (72) 95 99/54 6/8/18 08:00 93 Mechanical Ventilator 30 18 08:00 30 6/8/18 08:00 Mechanical Ventilator 30 18 07:55 98 18 102/69 (74) 95 101/54 6/8/18 07:50 98 18 104/68 (79) 95 103/56 6/8/18 07:45 100 18 109/66 (74) 95 104/56 6/8/18 07:40 99 18 104/66 (75) 95 102/55 6/8/18 07:35 99 18 105/68 (82) 95 104/57 6/8/18 07:30 99 18 103/68 (83) 94 98/53 6/8/18 07:25 100 18 105/68 (76) 95 103/57 6/8/18 07:20 98 18 107/69 (76) 95 101/55 6/8/18 07:16 40 6/8/18 07:15 99 18 105/70 (78) 95 100/54 03/03/18 07:10 101 18 109/69 (76) 94 110/63 03/03/18 07:05 101 20 106/71 (80) 95 109/63 03/03/18 07:00 102 20 110/73 (75) 95 104/60 03/03/18 06:30 101 20 104/67 (79) 93 Mechanical Ventilator 03/03/18 06:00 103 26 99/69 (79) 93 Mechanical Ventilator 03/03/18 05:30 105 26 95/70 (78) 93 Mechanical Ventilator 03/03/18 05:25 50 03/03/18 04:30 140 24 125/51 (75) 83 Mechanical Ventilator 03/03/18 04:10 37.3 124 20 127/88 (101) 87 03/03/18 04:00 Mechanical Ventilator 03/03/18 03:15 145 24 107/85 (92) 03/03/18 03:15 50 03/03/18 03:00 121 20 153/105 (121) 90 Mechanical Ventilator 03/03/18 02:55 125 141/96 (111) 03/03/18 02:39 75 03/03/18 02:00 122 28 103/86 (92) 88 CPAP 03/03/18 01:45 120 89 70 03/03/18 01:00 122 30 141/76 (97) 89 CPAP 03/03/18 00:58 70 03/03/18 00:07 36.8 121 36 100/63 (75) 88 CPAP 55 03/02/18 23:59 55 03/02/18 23:32 121 91 60 03/02/18 22:00 110 29 145/93 (110) 90 BiPAP 55 Laboratory Results: Last 24 Hours Test 03/02/18 23:54 03/03/18 00:25 03/03/18 00:46 03/03/18 02:35 Bedside Glucose 138 mg/dl Troponin I < 0.015 ng/ml Blood Gas Sample Site L Radial L Radial Bedside Blood Gas pH (LAB) 7.38 7.33 Bedside Blood Gas pCO2 (LAB) 60 mmHg 65 mmHg Bedside Blood Gas pO2 (LAB) 55 mmHg 56 mmHg Bedside Blood Gas HCO3 (LAB) 35 meq/L 34 meq/L Bedside Blood Gas Total CO2 37 mEq/l 36 mEq/l Bedside Blood Gas Base Excess (LAB) 10.0 meq/L 8.0 meq/L Bedside Blood Gas O2 Saturation 86.0 % 86.0 % [place] Test Pass Pass Oxygen Delivery Device BIPAP BIPAP Bedside FiO2 60 % 70 % Test 03/03/18 04:35 03/03/18 04:38 03/03/18 04:44 03/03/18 05:22 Blood Gas Sample Site L Radial L Radial Art Line Bedside Blood Gas pH (LAB) 6.97 7.10 7.50 Bedside Blood Gas pCO2 (LAB) 107 mmHg 83 mmHg 38 mmHg Bedside Blood Gas pO2 (LAB) 65 mmHg 65 mmHg 83 mmHg Bedside Blood Gas HCO3 (LAB) 25 meq/L 26 meq/L 29 meq/L Bedside Blood Gas Total CO2 28 mEq/l 28 mEq/l 30 mEq/l Bedside Blood Gas Base Excess (LAB) -7.0 meq/L -4.0 meq/L 6.0 meq/L Bedside Blood Gas O2 Saturation 75.0 % 81.0 % 97.0 % [place] Test Pass Pass NA Oxygen Delivery Device Ventilator Ventilator Ventilator Bedside Oxygen Rate (breaths/min) 16 16 35 Blood Gas Minute Ventilation 10.0 10 18.1 Bedside FiO2 50 % 50 % 50 % Blood Gas Tidal Volume 550 550 550 Blood Gas PEEP 16 16 16 White Blood Count 28.64 K/uL Red Blood Count 4.12 M/uL Hemoglobin 13.9 g/dL Hematocrit 40.4 % Mean Corpuscular Volume 98.1 fL Mean Corpuscular Hemoglobin 33.3 pg Mean Corpuscular Hemoglobin Concent 33.9 g/dl Platelet Count 228 K/uL Mean Platelet Volume 10.2 fL Neutrophils (%) (Auto) 82.3 % Lymphocytes (%) (Auto) 7.5 % Monocytes (%) (Auto) 9.1 % Eosinophils (%) (Auto) 0.0 % Basophils (%) (Auto) 0.1 % Neutrophils # (Auto) 23.58 K/uL Lymphocytes # (Auto) 2.15 K/uL Monocytes # (Auto) 2.60 K/uL Eosinophils # (Auto) 0.00 K/uL Basophils # (Auto) 0.02 K/uL RDW Standard Deviation 47.6 fL RDW Coefficient of Variation 13.3 % Immature Granulocyte % (Auto) 1.0 % Immature Granulocyte # (Auto) 0.29 K/uL Red Blood Cell Morphology Unremarkable Sodium Level 137 mmol/L Potassium Level 4.6 mmol/L Chloride Level 100 mmol/L Carbon Dioxide Level 26 mmol/L Anion Gap 11.0 mmol/L Blood Urea Nitrogen 25 mg/dl Creatinine 1.78 mg/dl Est Creatinine Clear Calc Drug Dose 56.6 ml/min Estimated GFR () 49.4 Estimated GFR (Non- 42.6 BUN/Creatinine Ratio 14.1 Random Glucose 169 mg/dl Calcium Level 9.2 mg/dl Phosphorus Level 7.1 mg/dl Magnesium Level 2.6 mg/dl Test 03/03/18 05:58 03/03/18 06:01 03/03/18 07:01 03/03/18 11:40 Bedside Glucose 184 mg/dl 138 mg/dl Blood Gas Sample Site Art Line Art Line Bedside Blood Gas pH (LAB) 7.53 7.49 Bedside Blood Gas pCO2 (LAB) 37 mmHg 43 mmHg Bedside Blood Gas pO2 (LAB) 72 mmHg 79 mmHg Bedside Blood Gas HCO3 (LAB) 31 meq/L 33 meq/L Bedside Blood Gas Total CO2 32 mEq/l 34 mEq/l Bedside Blood Gas Base Excess (LAB) 8.0 meq/L 10.0 meq/L Bedside Blood Gas O2 Saturation 96.0 % 96.0 % [place] Test NA NA Oxygen Delivery Device Ventilator Ventilator Bedside Oxygen Rate (breaths/min) 26 20 Blood Gas Minute Ventilation 13.4 10.2 Bedside FiO2 40 % 40 % Blood Gas Tidal Volume 550 550 Blood Gas PEEP 16 14 Test 03/03/18 11:42 03/03/18 11:54 03/03/18 12:10 03/03/18 12:30 Blood Gas Sample Site Art Line Bedside Blood Gas pH (LAB) 7.29 Bedside Blood Gas pCO2 (LAB) 74 mmHg Bedside Blood Gas pO2 (LAB) 73 mmHg Bedside Blood Gas HCO3 (LAB) 35 meq/L Bedside Blood Gas Total CO2 37 mEq/l Bedside Blood Gas Base Excess (LAB) 8.0 meq/L Bedside Blood Gas O2 Saturation 92.0 % [place] Test NA Oxygen Delivery Device Ventilator Bedside Oxygen Rate (breaths/min) 18 Blood Gas Minute Ventilation 6.8 Bedside FiO2 30 % Blood Gas Tidal Volume 400 Blood Gas PEEP 14 Lactate Dehydrogenase 538 U/L Body Fluid Polynuclear WBCs 78.0 % Body Fluid Mononuclear Cells 22.0 % Urine Color YELLOW Urine Appearance TURBID Urine pH 5.0 Urine Specific [place] 1.024 Urine Protein NEG Urine Glucose (UA) NEG Urine Ketones NEG Urine Occult Blood 3+ Urine Nitrite NEG Urine Bilirubin NEG Urine Urobilinogen NEG Urine Leukocyte Esterase NEG Urine WBC (Auto) 1-5 /hpf Urine RBC (Auto) 10-30 /hpf Urine Hyaline Casts (Auto) 1-5 /lpf Urine Epithelial Cells (Auto) 5-10 /lpf Urine Bacteria (Auto) NEG Test 03/03/18 12:43 03/03/18 18:49 Bedside Glucose 136 mg/dl
[2018-03-04] VITALS (33 sets, daily range): BP systolic 96–141; BP diastolic 54–88; PULSE 64–98; TEMP 36.4–36.8; O2SAT 83–100
--- NOTE | 2018-03-04 00:03 | Critical Care Progress Note ---
Critical Care Progress Note Date of Service Mar 03, 2018. Critical Care Progress Note Spoke with Dr. London and Dr. Barker this evening about pt diagnosis. At this time, pts presentation and being immuno-compromised as well as increase in LDH is suspicious for Pneumocystisis jirovecii pneumonia. At this time, we will add IV Bactrim to pt regimen and base dosing off of the Trimethoprim component. I did call pharmacy to verify availability of either Primaquine or pentamidine; however, we are unable to provide or order it over the weekend. We will continue with IV bactrim. However, we are aware that this along with other current medications will likely increase pts current MAHAD. I have consulted Nephrology about pt possible need for HD in the future. Dr. Katie Calderón is aware of the consult and understands that the pt is currently being treated for PJP, Severe ARDS requiring neuromuscular blockade, and his current MAHAD. Pts Trudy was updated per Dr. Barker, though I was not present at that time. Plan: * Ordered Bactrim: 15mg/kg/day to be divided into q6h * Per my calculations pt will require 23ml/dose (Strength 16mg/ml) per dose or 368mg/dose * EKG daily * Pulmonology Consult Appreciated * Wean Vent per [facility] protocol * AM ABG and CXR * Neuromuscular Blockade discontinued at 24 hrs Additional Critical Care time 25 minutes, Not including any billable procedures. Thank you for including us in the care of this patient. Please review Dr. Serafin London's addendum for further recommendations.
[2018-03-04] MEDS: METHYLPREDNISOLONE IV 40 MG in SYRINGE 0 ML IV SCH ×3 (01:13→15:59)
[2018-03-04] MEDS: CISATRACURIUM BESYLATE INJ 40 MG in SODIUM CHLORIDE 0.9% 100ML 80 ML IV PRN ×4 (02:07→21:02)
[2018-03-04] MEDS: TRIMETH IV SCH ×4 (02:32→21:01)
[2018-03-04] MEDS: SULFA IV SCH ×4 (02:32→21:01)
[2018-03-04] MEDS: DEXTROSE 5% IV SCH ×4 (02:32→21:01)
[2018-03-04] MEDS: PIPERACILL/TAZOBAC IV 4.5 GM in DEXTROSE 5% 100ML 100 ML IV SCH ×3 (03:36→20:26)
[2018-03-04 04:39] LABS: HEMATOCRIT 32.3 % (42-52); HEMOGLOBIN 10.7 g/dL (14.0-18.0); MEAN CELL VOLUME 95.8 fL (80-100); MEAN CORPUSCULAR HEMOGLOBIN 31.8 pg (25-34); MEAN CORPUSCULAR HGB CONC 33.1 g/dl (32-36); MEAN PLATELET VOLUME 9.2 fL (7.4-10.4); PLATELET COUNT 153 K/uL (130-400); RED CELL DISTRIBUTION WIDTH CV 13.6 % (11.5-14.5); RED CELL DISTRIBUTION WIDTH SD 47.5 fL (36.4-46.3); WHITE BLOOD COUNT 11.77 K/uL (4.8-10.8)
[2018-03-04 04:40] LABS: IG# 0.06 K/uL (0.00-0.02); LYMPH % 10.8 %; LYMPH ABS # 1.27 K/uL (1.2-3.4); MONO % 4.2 %; NEUT % 84.5 %; NEUT ABS # 9.94 K/uL (1.4-6.5)
[2018-03-04 04:52] LABS: CREATININE 0.88 mg/dl (0.60-1.40)
[2018-03-04 04:53] LABS: CALCIUM 8.3 mg/dl (8.5-10.1); PHOSPHORUS 3.1 mg/dl (2.5-4.9); POTASSIUM 4.4 mmol/L (3.5-5.1)
[2018-03-04] MEDS: INSULIN ASPART 100 UNITS/ML 3 ML PEN SC SCH ×3 (05:53→17:33)
--- NOTE | 2018-03-04 07:44 | DIAGNOSTIC IMAGING REPORT ---
CHEST ONE VIEW PORTABLE HISTORY: respiratory failure COMPARISON: Chest 03/03/2018. FINDINGS: The endotracheal tube terminates 3.4 cm from the raad. Nasogastric tube terminates below the level the diaphragm. Scoliosis and chest wall deformity remains unchanged. No pneumothorax. Interstitial and vascular thickening is slightly improved. Left basilar densities have also improved. The heart remains mildly enlarged. Right jugular central venous catheter terminates in the expected location of the SVC. IMPRESSION: 1. Satisfactory support line placement. 2. Slight improvement in the pulmonary edema pattern. Electronically signed by: Adams Burgess M.D. 03/04/2018 7:42 AM Dictated Date/Time: 03/04/2018 7:41 AM
[2018-03-04] MEDS: LEValbuterol HFA 15GM INHALER INH SCH ×4 (07:47→18:25)
[2018-03-04] MEDS: IPRATROPIUM BROMIDE HFA INHALER INH SCH ×4 (07:47→18:25)
[2018-03-04] MEDS: ASPIRIN 324 MG CHEW PO SCH (08:44)
[2018-03-04] MEDS: FENTANYL 1250MCG/250ML NSS 250 ML IV PRN ×2 (08:44→20:55)
[2018-03-04] MEDS: MIDAZOLAM 125MG/250ML D5W 250 ML IV PRN (08:45)
[2018-03-04] MEDS: PAROXETINE 20 MG TAB PO SCH (08:46)
[2018-03-04] MEDS: GABAPENTIN 100 MG CAP PO SCH ×2 (08:46→21:03)
[2018-03-04] MEDS: HEPARIN SOD 5000 UNIT/0.5 ML CARP SQ SCH ×2 (08:47→16:00)
[2018-03-04] MEDS ORDERED: VANCOMYCIN IV 1,500 MG in SODIUM CHLORIDE 0.9% 500ML 500 ML IV SCH (09:00)
--- NOTE | 2018-03-04 09:39 | Pulmonology Progress Note ---
Pulmonary Progress Note Date of Service Mar 04, 2018. Attending Dr. Barker Subjective Patient is currently intubated sedated and looks comfortable Objective Patient is currently intubated sedated on mechanical ventilation Vital signs: VENT: AC/TV:400/FiO2: 60%/PEEP:16 (ABG (03/04/18 @ 05:49) 7.35/64/ 40/35) Respiratory: Diffuse rhonchi appreciated bilaterally Cardiac: Distant heart sounds but S1-S2 tachycardic Abdomen: Minimal bowel sounds but no hepatomegaly appreciated PmHx: Hypersensitivity pneumonitis/steroid dependent, asthma, severe kyphosis/ scoliosis, mixed restrictive and obstructive ventilatory disease, nephrolithiasis, GRACIE, ureteral stone, migraine headaches I/Os: last 24: +655cc Total:-1078cc UOP last 12hours: 500cc (42cc/hr) Current in hospital workup 2. WBC: [id number] 3. Creatinine: 0.88 4. Albumin: 3.2 5. Procalcitonin: 0.10---0.05 6. EKG: Sinus tachycardia rate 105 7. CXR: Bilateral hilar fullness with peribronchial cuffing and cephalization 8. Pending: LYNDSEY screen, glomerular basement membrane antibody 9. Bronchial lavage: Fungal, bacterial, AFB, silver stain pending 10. Echocardiogram 03/02/2018 Left ventricle: EF=65-70%, LVH, Right ventricle: Poorly visualized Grade 1 diastolic dysfunction Current Pulmonary Medications 1. Heparin subcu 5000 q.8 hours 2. Vancomycin IV Day#: 2 3. Bactrim 20mg/Kg 4. Methylprednisolone 40 mg IV q.8 hours 5. Xopenex/Atrovent q.i.d. 6. Cisatracurium 7. Azithromycin 500 mg daily (Day#: 3) 8. Zosyn Day#: 3 Previous Workup Bronchial washing 07/18/2017: Yeast species, CD4/CD8: 1.21 Hypersensitivity panel 01/30/2017: Cladosporium herbar IgG Blood Eosinophil 7.9% (10/19/16) Blood Eosinophil 2.8% (08/30/17) Assessment & Plan 52-year-old male admitted with acute on chronic hypoxic respiratory insufficiency: 1. Hypoxemia: Pneumonia classic versus atypical currently antibiotic coverage please see above. As well started Bactrim for possible PCP. Agree with continuing current steroid dosing at 1.5 mg/kg. 2. Vent: Patient currently has a plateau pressure 34 and a peep of 18 with an FiO2 of 60%. Ultimately via the ARDS net protocol is optimal to keep the plateau pressure less than 30 cm H2O. At this time the patient's PaO2 is a notably fluctuating possibly from moving the patient increasing V/Q mismatches so ultimately the team is using the higher plateau pressure ARDS net protocol. It appears though we do have some room with the patient's pCO2/PH which may allow us to drop the patient's tidal volumes to 5 cc/kilogram as they are currently 5.7 cc/kilogram based off ideal body weight. This may ultimately get or plateau pressures below 30 cm H2O. Ultimately I will leave this decision up to the ICU team. 3. ID: Patient currently stabilizing on multiple antibiotics recently started Bactrim secondary to elevated LDH and high probability of Pneumocystis infection. At this time the patient's creatinine has returned back to a normal baseline and has had increasing urine output at 72 cc/hour over the last 12 hours. Bronchoscopic evaluation for silver stain is currently pending and I will work with the cytopathologist on this today. Ultimately though in a HIV negative patient transbronchial biopsies are required for more definitive rule out a PCP. I did review the patient's history and it appears an HIV study, I attempted to contact the patient's to obtain consent but was unable to. Data Medications: Current Inpatient Medications Medications (Trade) Dose Ordered Sig/Nemo Route Start Time Stop Time Status Last Admin Dose Admin Gabapentin (Neurontin Cap) 100 mg BID PO 03/02/18 09:00 04/01/18 08:59 03/04/18 08:46 100 MG Paroxetine HCl (pAXil TAB) 40 mg DAILY PO 03/02/18 09:00 04/01/18 08:59 03/04/18 08:46 40 MG Pravastatin Sodium (Pravachol Tab) 40 mg HS PO 03/02/18 21:00 04/01/18 20:59 03/03/18 20:48 40 MG Ranitidine HCl (zANTac TAB) 300 mg BID PO 03/02/18 09:00 04/01/18 08:59 Future Hold 03/02/18 20:40 300 MG Furosemide 20 mg/ Syringe 2 ml @ 4 mls/min BID IV 03/02/18 09:00 04/01/18 08:59 Future Hold 03/02/18 20:38 4 MLS/MIN Levalbuterol (Xopenex 0.63 Mg/ 3 Ml Neb) 0.63 mg Q4H PRN INH 03/01/18 23:15 03/31/18 23:14 03/02/18 01:58 0.63 MG Azithromycin (Zithromax Tab) 500 mg DAILY@2100 PO 03/02/18 21:00 03/09/18 20:59 03/03/18 20:48 500 MG Piperacillin Sod/ Tazobactam Sod 4.5 gm/Dextrose 120 ml @ 30 mls/hr Q8H IV 03/02/18 04:00 03/09/18 03:59 03/04/18 03:36 30 MLS/HR Miscellaneous Information (Consult) 1 ea UD PRN N/A 03/01/18 23:15 03/31/18 23:14 Acetaminophen (Tylenol Tab) 1,000 mg Q8H PRN PO 03/01/18 23:45 03/31/18 23:44 Lorazepam (Ativan Inj) 1 mg Q6H PRN IV 03/02/18 09:45 04/01/18 09:44 03/02/18 20:52 1 MG Glucose (Glucose 40% Gel) 15-30 GRAMS 15 GRAMS... UD PRN PO 03/02/18 12:45 04/01/18 12:44 Glucose (Glucose Chew Tab) 4-8 Tablets 4 Tabl... UD PRN PO 03/02/18 12:45 04/01/18 12:44 Dextrose (Dextrose 50% 50ML Syringe) 25-50ML 25ML FOR ... UD PRN IV 03/02/18 12:45 04/01/18 12:44 Glucagon (Glucagon Inj) 1 mg UD PRN IM 03/02/18 12:45 04/01/18 12:44 Carbohydrates (Carbohydrates For Hypoglycemia) 15-30 GRAMS 15 grams if BSG 54-69... UD PRN PO 03/02/18 12:45 04/01/18 12:44 Miscellaneous Information (Consult Glycemic Management Pharmacy) 1 ea UD PRN N/A 03/02/18 12:45 04/01/18 12:44 Insulin Aspart (novoLOG ASPART) SLIDING SCALE G... Q6H SC 03/02/18 12:45 04/01/18 12:44 03/03/18 23:38 2 UNITS Prednisone (PredniSONE TAB) 30 mg BID PO 03/02/18 21:00 04/01/18 20:59 Future Hold 03/02/18 20:40 30 MG Morphine Sulfate (MoRPHine SULFATE INJ) 2 mg Q4H PRN IV 03/02/18 23:15 03/16/18 23:14 03/02/18 23:47 2 MG Ondansetron HCl (Zofran Inj) 4 mg Q6H PRN IV 03/02/18 23:45 04/01/18 23:44 Fentanyl Citrate 250 ml @ 0 mls/hr Q0M PRN IV 03/03/18 02:59 03/17/18 02:58 03/04/18 08:44 30 MLS/HR Midazolam HCl 250 ml @ 0 mls/hr Q0M PRN IV 03/03/18 02:59 04/02/18 02:58 03/04/18 08:45 20 MLS/HR Pantoprazole Sodium 40 mg/ Syringe 10 ml @ 5 mls/min DAILY@1100 IV 03/03/18 03:30 04/02/18 03:29 03/03/18 11:17 5 MLS/MIN Cisatracurium Besylate 40 mg/ Sodium Chloride 100 ml @ 0 mls/hr Q0M PRN IV 03/03/18 03:30 04/02/18 03:29 03/04/18 07:12 16.3 MLS/HR Ipratropium Ranger (Atrovent Hfa Inhaler) 4 puffs QIDR INH 03/03/18 08:00 04/02/18 07:59 03/03/18 19:57 4 PUFFS Levalbuterol (Xopenex Hfa Inhaler) 4 puffs QIDR INH 03/03/18 08:00 04/02/18 07:59 03/03/18 19:56 4 PUFFS Aspirin (Aspirin Chew) 325 mg DAILY PO 03/03/18 09:00 04/02/18 08:59 03/04/18 08:44 324 MG Methylprednisolone Sodium Succinate 40 mg/Syringe 0.64 ml @ 1.5 mls/min Q8H IV 03/03/18 09:00 04/02/18 08:59 03/04/18 08:44 1.5 MLS/MIN Miscellaneous Information (Consult) 1 ea UD PRN N/A 03/03/18 09:00 04/02/18 08:59 Heparin Sodium (Porcine) (Heparin Sq 5000 Unit/0.5ml) 5,000 unit Q8H SQ 03/04/18 09:00 04/03/18 08:59 03/04/18 08:47 5,000 UNIT Vancomycin HCl 1500 mg/Sodium Chloride 530 ml @ 200 mls/hr Q18H IV 03/04/18 09:00 03/11/18 08:59 Future Hold Enteral Nutritional Formula (Peptamen Intense VHP) 1,000 ml UD PRN OG 03/03/18 16:30 04/02/18 16:29 03/03/18 19:22 1,000 ML Trimethoprim/ Sulfamethoxazole 368 mg/Dextrose 523 ml @ 333 mls/hr Q6H IV 03/04/18 03:00 03/11/18 02:59 03/04/18 08:44 333 MLS/HR Vital Signs: Date Time Temp Pulse Resp B/P (MAP) Pulse Ox O2 Delivery O2 Flow Rate FiO2 03/04/18 07:40 60 03/04/18 06:01 83 22 141/88 (93) 83 141/69 03/04/18 05:35 60 03/04/18 05:30 67 22 117/57 (77) 90 03/04/18 05:00 69 22 101/64 (69) 89 117/58 03/04/18 04:30 66 22 115/58 (75) 91 03/04/18 04:00 36.4 03/04/18 04:00 65 22 96/63 (71) 90 110/56 03/04/18 04:00 91 Mechanical Ventilator 30 03/04/18 04:00 30 03/04/18 03:30 66 22 113/57 (75) 91 03/04/18 03:00 64 22 100/66 (73) 92 111/58 03/04/18 02:30 65 22 107/54 (72) 90 03/04/18 02:00 69 22 103/66 (72) 91 115/58 03/04/18 02:00 40 6/9/18 01:30 69 22 116/58 (77) 95 6/9/18 01:00 70 22 102/65 (70) 94 114/56 6/9/18 00:30 72 22 116/57 (77) 93 6/9/18 00:09 70 22 119/77 (93) 95 134/70 6/9/18 00:01 36.4 6/9/18 00:00 73 22 120/61 (81) 94 6/8/18 23:59 93 Mechanical Ventilator 40 /8/18 23:59 40 6/8/18 23:30 72 22 118/58 (78) 94 6/8/18 23:00 69 22 95/61 (68) 94 112/54 6/8/18 23:00 30 6//18 22:30 75 22 110/55 (73) 92 6/8/18 22:00 66 22 93/59 (67) 93 107/55 6/8/18 21:30 67 22 106/56 (73) 94 6//18 21:00 67 22 102/66 (74) 94 113/61 6/8/18 20:30 67 22 111/56 (75) 92 6/8/18 20:00 30 6/8/18 20:00 36.4 6/8/18 20:00 92 Mechanical Ventilator 30 03/03/18 20:00 66 22 101/66 (77) 93 105/53 6/8/18 19:58 30 6/8/18 19:30 68 22 104/41 (67) 95 6/8/18 19:00 71 22 105/68 (79) 93 109/55 6/8/18 18:00 36.6 6/8/18 17:50 70 22 101/66 (75) 110/56 6/8/18 17:45 72 22 102/68 (77) 113/58 6/8/18 17:40 72 22 106/71 (80) 114/60 6/8/18 17:35 72 22 102/69 (78) 117/60 6/8/18 17:31 69 22 119/82 (91) 90 126/68 6/8/18 17:30 30 6/8/18 17:10 69 95/61 (65) 93 96/44 6/8/18 17:05 75 101/67 (74) 92 109/54 6/8/18 17:00 76 103/68 (74) 93 107/53 6/8/18 16:55 75 104/71 (80) 92 111/54 6/8/18 16:50 75 101/65 (74) 92 107/51 6/8/18 16:45 76 102/67 (78) 92 109/53 6/8/18 16:40 76 98/64 (74) 92 107/51 6/8/18 16:35 75 103/69 (74) 92 110/53 6/8/18 16:30 75 102/70 (76) 92 107/51 6/8/18 16:25 77 106/69 (81) 92 110/53 6/8/18 16:20 76 102/67 (73) 92 109/52 6/8/18 16:15 74 101/68 (78) 91 106/49 6/8/18 16:10 77 109/69 (77) 92 114/54 6/8/18 16:05 78 107/72 (79) 92 116/54 6/8/18 16:00 30 6/8/18 16:00 81 109/70 (76) 92 117/54 6/8/18 16:00 94 Mechanical Ventilator 30 6/8/18 15:00 37.3 84 22 114/76 (83) 92 124/60 6/8/18 14:40 30 6/8/18 14:00 37.3 84 22 114/76 (83) 92 124/60 6/8/18 13:00 37.3 84 22 114/76 (83) 92 124/60 6/8/18 12:55 84 114/76 (83) 92 124/60 6/8/18 12:50 82 116/78 (91) 93 126/63 6/8/18 12:45 81 116/80 (91) 95 125/61 6/8/18 12:45 30 6/8/18 12:40 84 122/80 (89) 93 123/61 6/8/18 12:35 82 114/77 (82) 93 121/60 6/8/18 12:30 83 115/77 (83) 93 121/61 6/8/18 12:25 84 116/75 (82) 97 122/61 6/8/18 12:20 84 22 115/78 (83) 98 124/63 68/18 12:15 85 22 116/79 (83) 98 121/62 6/18 12:15 84 22 116/79 100 Mask 50 18 12:10 87 22 121/82 (92) 100 123/64 18 12:09 87 22 127/67 100 Mask 50 18 12:05 90 22 132/88 (100) 100 142/79 18 12:05 88 24 132/88 100 Mechanical Ventilator 138/74 18 12:00 91 22 124/91 100 Mechanical Ventilator 100 143/75 18 12:00 83 23 124/91 (98) 97 125/62 18 12:00 30 03/03/18 12:00 93 Mechanical Ventilator 30 03/03/18 11:25 87 18 120/82 (97) 95 136/62 18 11:20 88 18 119/75 (81) 95 134/60 18 11:15 89 18 126/79 (84) 95 18 11:10 90 18 122/78 (88) 95 6/18 11:05 88 18 126/82 (101) 94 18 11:00 89 18 122/81 (87) 94 18 10:55 90 18 126/78 (86) 94 6/18 10:50 91 18 125/79 (90) 94 68/18 10:45 90 18 121/78 (88) 94 68/18 10:40 90 18 126/79 (91) 94 618 10:35 90 18 122/75 (82) 94 618 10:30 91 18 118/75 (80) 93 8/18 10:25 93 18 125/78 (89) 93 03/03/18 10:20 92 18 120/76 (85) 93 18 10:15 94 18 123/79 (91) 93 18 10:10 93 18 121/78 (84) 93 18 10:05 93 18 122/77 (83) 92 18 10:00 95 18 121/73 (78) 92 618 09:35 97 18 121/74 (82) 92 125/59 03/03/18 09:30 97 18 121/74 (89) 92 126/60 Laboratory Results: Last 24 Hours Test 03/03/18 11:40 03/03/18 11:42 03/03/18 11:54 03/03/18 12:10 Bedside Glucose 138 mg/dl Blood Gas Sample Site Art Line Bedside Blood Gas pH (LAB) 7.29 Bedside Blood Gas pCO2 (LAB) 74 mmHg Bedside Blood Gas pO2 (LAB) 73 mmHg Bedside Blood Gas HCO3 (LAB) 35 meq/L Bedside Blood Gas Total CO2 37 mEq/l Bedside Blood Gas Base Excess (LAB) 8.0 meq/L Bedside Blood Gas O2 Saturation 92.0 % [place] Test NA Oxygen Delivery Device Ventilator Bedside Oxygen Rate (breaths/min) 18 Blood Gas Minute Ventilation 6.8 Bedside FiO2 30 % Blood Gas Tidal Volume 400 Blood Gas PEEP 14 Lactate Dehydrogenase 538 U/L Body Fluid Polynuclear WBCs 78.0 % Body Fluid Mononuclear Cells 22.0 % Test 03/03/18 12:30 03/03/18 12:43 03/03/18 18:49 03/03/18 23:35 Urine Color YELLOW Urine Appearance TURBID Urine pH 5.0 Urine Specific [place] 1.024 Urine Protein NEG Urine Glucose (UA) NEG Urine Ketones NEG Urine Occult Blood 3+ Urine Nitrite NEG Urine Bilirubin NEG Urine Urobilinogen NEG Urine Leukocyte Esterase NEG Urine WBC (Auto) 1-5 /hpf Urine RBC (Auto) 10-30 /hpf Urine Hyaline Casts (Auto) 1-5 /lpf Urine Epithelial Cells (Auto) 5-10 /lpf Urine Bacteria (Auto) NEG Bedside Glucose 136 mg/dl 205 mg/dl Test 03/04/18 04:17 03/04/18 05:37 03/04/18 05:49 03/04/18 08:37 White Blood Count 11.77 K/uL Red Blood Count 3.37 M/uL Hemoglobin 10.7 g/dL Hematocrit 32.3 % Mean Corpuscular Volume 95.8 fL Mean Corpuscular Hemoglobin 31.8 pg Mean Corpuscular Hemoglobin Concent 33.1 g/dl Platelet Count 153 K/uL Mean Platelet Volume 9.2 fL Neutrophils (%) (Auto) 84.5 % Lymphocytes (%) (Auto) 10.8 % Monocytes (%) (Auto) 4.2 % Eosinophils (%) (Auto) 0.0 % Basophils (%) (Auto) 0.0 % Neutrophils # (Auto) 9.94 K/uL Lymphocytes # (Auto) 1.27 K/uL Monocytes # (Auto) 0.50 K/uL Eosinophils # (Auto) 0.00 K/uL Basophils # (Auto) 0.00 K/uL RDW Standard Deviation 47.5 fL RDW Coefficient of Variation 13.6 % Immature Granulocyte % (Auto) 0.5 % Immature Granulocyte # (Auto) 0.06 K/uL Sodium Level 134 mmol/L Potassium Level 4.4 mmol/L Chloride Level 100 mmol/L Carbon Dioxide Level 31 mmol/L Anion Gap 3.0 mmol/L Blood Urea Nitrogen 25 mg/dl Creatinine 0.88 mg/dl Est Creatinine Clear Calc Drug Dose 114.5 ml/min Estimated GFR () 113.7 Estimated GFR (Non- 98.1 BUN/Creatinine Ratio 28.7 Random Glucose 169 mg/dl Calcium Level 8.3 mg/dl Phosphorus Level 3.1 mg/dl Magnesium Level 2.3 mg/dl Procalcitonin 0.05 ng/ml Bedside Glucose 155 mg/dl Blood Gas Sample Site Art Line Bedside Blood Gas pH (LAB) 7.35 Bedside Blood Gas pCO2 (LAB) 64 mmHg Bedside Blood Gas pO2 (LAB) 40 mmHg Bedside Blood Gas HCO3 (LAB) 35 meq/L Bedside Blood Gas Total CO2 37 mEq/l Bedside Blood Gas Base Excess (LAB) 9.0 meq/L Bedside Blood Gas O2 Saturation 72.0 % [place] Test NA Oxygen Delivery Device Ventilator Bedside Oxygen Rate (breaths/min) 22 Blood Gas Minute Ventilation 7.8 Bedside FiO2 30 % Blood Gas Tidal Volume 400 Blood Gas PEEP 14
--- NOTE | 2018-03-04 10:39 | Nephrology Consultation ---
Nephrology Consultation Date of Consultation: Mar 04, 2018. 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 He was intubated 03/03 > the paralytics were d/c'd early this am but ventilation became more challenging and these were reinstated. He had a bronch and his clinical profile is suspicious for PCP pneumonia>> on vancomycin, bactrim IV, zosyn. He has pulmonary edema on CXR - has been getting intermittent low dose iv lasix, last dose yesterday evening. He made 1200 mL urine yesterday. His presenting creatinine was 0.8>peaked at 1.8 yesterday; back to baseline today. Past Medical/Surgical History Medical Problems: (1) Asthma Status: Chronic (2) Bilateral pneumonia Status: Acute (3) Chest pain, unspecified Status: Acute (4) Chronic back pain Status: Chronic (5) COPD exacerbation Status: Acute (6) Depression Status: Chronic (7) Dyslipidemia Status: Chronic (8) Gastroesophageal reflux disease Status: Chronic (9) Migraine Status: Chronic (10) Pericarditis Status: Acute (11) Pneumonitis Status: Acute (12) Scoliosis Status: Chronic (13) Sleep disorder Status: Chronic -severe COPD; 02 dependent -GRACIE on CPAP -hypersensitivity pneumonitis on chronic steroids -active tobacco abuse -admission [facility] 09/2017 w/ double PNA -depression -migraines -GERD -HL -nephrolithiasis s/p L ureteral stenting -spinal scoliosis s/p surgical repair Family History Diabetes mellitus FATHER FH: cancer BROTHER (lung CA) FH: heart disease FATHER (fatal [place]/stroke age 79) BROTHER ([place] in early 50s) FH: kidney disease FHx: gallstones Hypertension Stroke FATHER Social History Smoking Status: Current Every Day Smoker Alcohol Use: none Drug Use: none Marital Status: Housing Status: lives with significant other Occupation Status: employed Allergies Coded Allergies: No Known Allergies (Unverified , 03/01/18) Medications Current Inpatient Medications Medications (Trade) Dose Ordered Sig/Nemo Route Start Time Stop Time Status Last Admin Dose Admin Gabapentin (Neurontin Cap) 100 mg BID PO 03/02/18 09:00 04/01/18 08:59 03/03/18 20:48 100 MG Paroxetine HCl (pAXil TAB) 40 mg DAILY PO 03/02/18 09:00 04/01/18 08:59 03/03/18 08:34 40 MG Pravastatin Sodium (Pravachol Tab) 40 mg HS PO 03/02/18 21:00 04/01/18 20:59 03/03/18 20:48 40 MG Ranitidine HCl (zANTac TAB) 300 mg BID PO 03/02/18 09:00 04/01/18 08:59 Future Hold 03/02/18 20:40 300 MG Furosemide 20 mg/ Syringe 2 ml @ 4 mls/min BID IV 03/02/18 09:00 04/01/18 08:59 Future Hold 03/02/18 20:38 4 MLS/MIN Levalbuterol (Xopenex 0.63 Mg/ 3 Ml Neb) 0.63 mg Q4H PRN INH 03/01/18 23:15 03/31/18 23:14 03/02/18 01:58 0.63 MG Azithromycin (Zithromax Tab) 500 mg DAILY@2100 PO 03/02/18 21:00 03/09/18 20:59 03/03/18 20:48 500 MG Piperacillin Sod/ Tazobactam Sod 4.5 gm/Dextrose 120 ml @ 30 mls/hr Q8H IV 03/02/18 04:00 03/09/18 03:59 03/04/18 03:36 30 MLS/HR Miscellaneous Information (Consult) 1 ea UD PRN N/A 03/01/18 23:15 03/31/18 23:14 Acetaminophen (Tylenol Tab) 1,000 mg Q8H PRN PO 03/01/18 23:45 03/31/18 23:44 Lorazepam (Ativan Inj) 1 mg Q6H PRN IV 03/02/18 09:45 04/01/18 09:44 03/02/18 20:52 1 MG Glucose (Glucose 40% Gel) 15-30 GRAMS 15 GRAMS... UD PRN PO 03/02/18 12:45 04/01/18 12:44 Glucose (Glucose Chew Tab) 4-8 Tablets 4 Tabl... UD PRN PO 03/02/18 12:45 04/01/18 12:44 Dextrose (Dextrose 50% 50ML Syringe) 25-50ML 25ML FOR ... UD PRN IV 03/02/18 12:45 04/01/18 12:44 Glucagon (Glucagon Inj) 1 mg UD PRN IM 03/02/18 12:45 04/01/18 12:44 Carbohydrates (Carbohydrates For Hypoglycemia) 15-30 GRAMS 15 grams if BSG 54-69... UD PRN PO 03/02/18 12:45 04/01/18 12:44 Miscellaneous Information (Consult Glycemic Management Pharmacy) 1 ea UD PRN N/A 03/02/18 12:45 04/01/18 12:44 Insulin Aspart (novoLOG ASPART) SLIDING SCALE G... Q6H SC 03/02/18 12:45 04/01/18 12:44 03/03/18 23:38 2 UNITS Prednisone (PredniSONE TAB) 30 mg BID PO 03/02/18 21:00 04/01/18 20:59 Future Hold 03/02/18 20:40 30 MG Morphine Sulfate (MoRPHine SULFATE INJ) 2 mg Q4H PRN IV 03/02/18 23:15 03/16/18 23:14 03/02/18 23:47 2 MG Ondansetron HCl (Zofran Inj) 4 mg Q6H PRN IV 03/02/18 23:45 04/01/18 23:44 Fentanyl Citrate 250 ml @ 0 mls/hr Q0M PRN IV 03/03/18 02:59 03/17/18 02:58 03/03/18 19:51 15 MLS/HR Midazolam HCl 250 ml @ 0 mls/hr Q0M PRN IV 03/03/18 02:59 04/02/18 02:58 03/03/18 03:24 4 MLS/HR Pantoprazole Sodium 40 mg/ Syringe 10 ml @ 5 mls/min DAILY@1100 IV 03/03/18 03:30 04/02/18 03:29 03/03/18 11:17 5 MLS/MIN Cisatracurium Besylate 40 mg/ Sodium Chloride 100 ml @ 0 mls/hr Q0M PRN IV 03/03/18 03:30 04/02/18 03:29 03/04/18 07:12 16.3 MLS/HR Ipratropium [place] (Atrovent Hfa Inhaler) 4 puffs QIDR INH 03/03/18 08:00 04/02/18 07:59 03/03/18 19:57 4 PUFFS Levalbuterol (Xopenex Hfa Inhaler) 4 puffs QIDR INH 03/03/18 08:00 04/02/18 07:59 03/03/18 19:56 4 PUFFS Aspirin (Aspirin Chew) 325 mg DAILY PO 03/03/18 09:00 04/02/18 08:59 03/03/18 09:24 324 MG Methylprednisolone Sodium Succinate 40 mg/Syringe 0.64 ml @ 1.5 mls/min Q8H IV 03/03/18 09:00 04/02/18 08:59 03/04/18 01:13 1.5 MLS/MIN Miscellaneous Information (Consult) 1 ea UD PRN N/A 03/03/18 09:00 04/02/18 08:59 Heparin Sodium (Porcine) (Heparin Sq 5000 Unit/0.5ml) 5,000 unit Q8H SQ 03/04/18 09:00 04/03/18 08:59 Vancomycin HCl 1500 mg/Sodium Chloride 530 ml @ 200 mls/hr Q18H IV 03/04/18 09:00 03/11/18 08:59 Enteral Nutritional Formula (Peptamen Intense VHP) 1,000 ml UD PRN OG 03/03/18 16:30 04/02/18 16:29 03/03/18 19:22 1,000 ML Trimethoprim/ Sulfamethoxazole 368 mg/Dextrose 523 ml @ 333 mls/hr Q6H IV 03/04/18 03:00 03/11/18 02:59 03/04/18 02:32 333 MLS/HR Home Meds and Scripts Medications Dose Route/Sig Max Daily Dose Days Date Category Dose Instructions Prednisone 5 Mg Tab 5 Mg PO UD 03/01/18 Reported Aspirin Ec (Aspirin) 325 Mg Tab 325 Mg PO DAILY 03/01/18 Reported Dulera 200/5 Mcg (Mometasone Furoate-Formoterol) 1 Aer Aer 2 Puffs INH BID 12/01/17 Reported Levalbuterol 1.25 Mg/0.5 Ml Nebu 1.25 Mg INH Q4H 12/01/17 Reported Combivent Respimat (Ipratropium-Albuterol) 1 Aer Aer 1 Puffs INH QID 12/01/17 Reported Pravastatin Sodium (Pravastatin Sod) 40 Mg Tab 1 Tab PO HS 12/01/17 Reported Ranitidine HCl 300 Mg Tab 1 Tab PO BID 12/01/17 Reported Prednisone 50 Mg Tab 50 Mg PO UD 12/01/17 Reported Prednisone 10 Mg Tab 10 Mg PO TID 12/01/17 Reported Neurontin (Gabapentin) 100 Mg Cap 100 Mg PO BID 12/01/17 Reported [place]-3 (Fish Oil) 1 Ea Cap 2 Cap PO DAILY 01/28/17 Reported Imitrex (Sumatriptan Succinate) 50 Mg Tab 50 Mg PO PRN PRN 11/02/12 Reported Take 50 mg at onset of migraine BURNHAM and repeat in 2 hours if continued BURNHAM. Amitriptyline Hcl 50 Mg Tab 75 Mg PO HS 11/02/12 Reported Paxil (Paroxetine Hcl) 40 Mg Tab 40 Mg PO DAILY 11/02/12 Reported Review of Systems unable to obtain d/t clinical condition Physical Exam Date Time Temp Pulse Resp B/P (MAP) Pulse Ox O2 Delivery O2 Flow Rate FiO2 03/04/18 07:40 60 03/04/18 06:01 83 22 141/88 (93) 83 141/69 03/04/18 05:35 60 03/04/18 05:30 67 22 117/57 (77) 90 03/04/18 05:00 69 22 101/64 (69) 89 117/58 03/04/18 04:30 66 22 115/58 (75) 91 03/04/18 04:00 36.4 03/04/18 04:00 65 22 96/63 (71) 90 110/56 03/04/18 04:00 91 Mechanical Ventilator 30 03/04/18 04:00 30 03/04/18 03:30 66 22 113/57 (75) 91 03/04/18 03:00 64 22 100/66 (73) 92 111/58 03/04/18 02:30 65 22 107/54 (72) 90 03/04/18 02:00 69 22 103/66 (72) 91 115/58 6/9/18 02:00 40 6/18 01:30 69 22 116/58 (77) 95 6/9/18 01:00 70 22 102/65 (70) 94 114/56 618 00:30 72 22 116/57 (77) 93 6/9/18 00:09 70 22 119/77 (93) 95 134/70 618 00:01 36.4 6//18 00:00 73 22 120/61 (81) 94 618 23:59 93 Mechanical Ventilator 40 18 23:59 40 6/8/18 23:30 72 22 118/58 (78) 94 6/8/18 23:00 69 22 95/61 (68) 94 112/54 618 23:00 30 618 22:30 75 22 110/55 (73) 92 6//18 22:00 66 22 93/59 (67) 93 107/55 618 21:30 67 22 106/56 (73) 94 618 21:00 67 22 102/66 (74) 94 113/61 6//18 20:30 67 22 111/56 (75) 92 6//18 20:00 30 6/18 20:00 36.4 6//18 20:00 92 Mechanical Ventilator 30 18 20:00 66 22 101/66 (77) 93 105/53 6/8/18 19:58 30 6//18 19:30 68 22 104/41 (67) 95 6/18 19:00 71 22 105/68 (79) 93 109/55 6/8/18 18:00 36.6 6/8/18 17:50 70 22 101/66 (75) 110/56 6/8/18 17:45 72 22 102/68 (77) 113/58 6/8/18 17:40 72 22 106/71 (80) 114/60 6/8/18 17:35 72 22 102/69 (78) 117/60 6/8/18 17:31 69 22 119/82 (91) 90 126/68 6/8/18 17:30 30 6/8/18 17:10 69 95/61 (65) 93 96/44 6/8/18 17:05 75 101/67 (74) 92 109/54 6/8/18 17:00 76 103/68 (74) 93 107/53 6/8/18 16:55 75 104/71 (80) 92 111/54 6/8/18 16:50 75 101/65 (74) 92 107/51 6/8/18 16:45 76 102/67 (78) 92 109/53 6/8/18 16:40 76 98/64 (74) 92 107/51 6/8/18 16:35 75 103/69 (74) 92 110/53 6/8/18 16:30 75 102/70 (76) 92 107/51 6/8/18 16:25 77 106/69 (81) 92 110/53 6/8/18 16:20 76 102/67 (73) 92 109/52 6/8/18 16:15 74 101/68 (78) 91 106/49 6/8/18 16:10 77 109/69 (77) 92 114/54 6/8/18 16:05 78 107/72 (79) 92 116/54 6/8/18 16:00 30 6//18 16:00 81 109/70 (76) 92 117/54 6/8/18 16:00 94 Mechanical Ventilator 30 6//18 15:00 37.3 84 22 114/76 (83) 92 124/60 6/8/18 14:40 30 6/8/18 14:00 37.3 84 22 114/76 (83) 92 124/60 6/8/18 13:00 37.3 84 22 114/76 (83) 92 124/60 6/8/18 12:55 84 114/76 (83) 92 124/60 6/8/18 12:50 82 116/78 (91) 93 126/63 6/8/18 12:45 81 116/80 (91) 95 125/61 6/8/18 12:45 30 6/8/18 12:40 84 122/80 (89) 93 123/61 6/8/18 12:35 82 114/77 (82) 93 121/60 6/8/18 12:30 83 115/77 (83) 93 121/61 6/8/18 12:25 84 116/75 (82) 97 122/61 6/8/18 12:20 84 22 115/78 (83) 98 124/63 6/8/18 12:15 85 22 116/79 (83) 98 121/62 6/8/18 12:15 84 22 116/79 100 Mask 50 /8/18 12:10 87 22 121/82 (92) 100 123/64 68/18 12:09 87 22 127/67 100 Mask 50 18 12:05 90 22 132/88 (100) 100 142/79 6818 12:05 88 24 132/88 100 Mechanical Ventilator 138/74 18 12:00 91 22 124/91 100 Mechanical Ventilator 100 143/75 18 12:00 83 23 124/91 (98) 97 125/62 18 12:00 30 18 12:00 93 Mechanical Ventilator 30 03/03/18 11:25 87 18 120/82 (97) 95 136/62 618 11:20 88 18 119/75 (81) 95 134/60 18 11:15 89 18 126/79 (84) 95 18 11:10 90 18 122/78 (88) 95 8/18 11:05 88 18 126/82 (101) 94 03/03/18 11:00 89 18 122/81 (87) 94 03/03/18 10:55 90 18 126/78 (86) 94 6/18 10:50 91 18 125/79 (90) 94 03/03/18 10:45 90 18 121/78 (88) 94 8/18 10:40 90 18 126/79 (91) 94 68/18 10:35 90 18 122/75 (82) 94 6/8/18 10:30 91 18 118/75 (80) 93 8/18 10:25 93 18 125/78 (89) 93 6/18 10:20 92 18 120/76 (85) 93 6/8/18 10:15 94 18 123/79 (91) 93 03/03/18 10:10 93 18 121/78 (84) 93 18 10:05 93 18 122/77 (83) 92 618 10:00 95 18 121/73 (78) 92 03/03/18 09:35 97 18 121/74 (82) 92 125/59 03/03/18 09:30 97 18 121/74 (89) 92 126/60 03/03/18 09:25 97 18 120/77 (88) 92 123/59 03/03/18 09:20 98 18 118/76 (88) 91 123/58 03/03/18 09:15 98 18 117/71 (82) 91 123/60 03/03/18 09:10 98 18 115/71 (81) 91 118/57 03/03/18 09:05 97 18 113/73 (82) 91 117/57 03/03/18 09:00 99 18 114/70 (81) 91 117/58 03/03/18 08:55 98 18 112/71 (81) 91 112/55 03/03/18 08:50 99 18 113/71 (80) 92 115/59 03/03/18 08:45 97 18 110/69 (80) 91 110/56 03/03/18 08:40 99 18 112/68 (79) 91 112/57 03/03/18 08:35 96 18 111/67 (75) 92 107/56 03/03/18 08:35 96 18 111/67 (75) 92 107/56 03/03/18 08:30 96 18 105/69 (76) 91 102/53 03/03/18 08:30 96 18 105/69 (76) 91 102/53 General Appearance: WD/WN, no apparent distress, + pertinent finding (intubated , sedated) ENT: + muffled/hoarse voice (ett) Neck: supple Respiratory/Chest: no respiratory distress, + decreased breath sounds Cardiovascular: regular rate, rhythm, no edema Abdomen: normal bowel sounds, non tender, soft, + pertinent finding (willams w/ ample urine) Extremities: no pedal edema Neurologic/Psych: + pertinent finding (intubated, sedated, paralyzed) Skin: warm/dry, no rash, + pallor Diagnostics Last 24 Hours Test 03/03/18 11:40 03/03/18 11:42 03/03/18 11:54 03/03/18 12:10 Bedside Glucose 138 mg/dl Blood Gas Sample Site Art Line Bedside Blood Gas pH (LAB) 7.29 Bedside Blood Gas pCO2 (LAB) 74 mmHg Bedside Blood Gas pO2 (LAB) 73 mmHg Bedside Blood Gas HCO3 (LAB) 35 meq/L Bedside Blood Gas Total CO2 37 mEq/l Bedside Blood Gas Base Excess (LAB) 8.0 meq/L Bedside Blood Gas O2 Saturation 92.0 % [place] Test NA Oxygen Delivery Device Ventilator Bedside Oxygen Rate (breaths/min) 18 Blood Gas Minute Ventilation 6.8 Bedside FiO2 30 % Blood Gas Tidal Volume 400 Blood Gas PEEP 14 Lactate Dehydrogenase 538 U/L Body Fluid Polynuclear WBCs 78.0 % Body Fluid Mononuclear Cells 22.0 % Test 03/03/18 12:30 03/03/18 12:43 03/03/18 18:49 03/03/18 23:35 Urine Color YELLOW Urine Appearance TURBID Urine pH 5.0 Urine Specific [place] 1.024 Urine Protein NEG Urine Glucose (UA) NEG Urine Ketones NEG Urine Occult Blood 3+ Urine Nitrite NEG Urine Bilirubin NEG Urine Urobilinogen NEG Urine Leukocyte Esterase NEG Urine WBC (Auto) 1-5 /hpf Urine RBC (Auto) 10-30 /hpf Urine Hyaline Casts (Auto) 1-5 /lpf Urine Epithelial Cells (Auto) 5-10 /lpf Urine Bacteria (Auto) NEG Bedside Glucose 136 mg/dl 205 mg/dl Test 03/04/18 04:17 03/04/18 05:37 03/04/18 05:49 White Blood Count 11.77 K/uL Red Blood Count 3.37 M/uL Hemoglobin 10.7 g/dL Hematocrit 32.3 % Mean Corpuscular Volume 95.8 fL Mean Corpuscular Hemoglobin 31.8 pg Mean Corpuscular Hemoglobin Concent 33.1 g/dl Platelet Count 153 K/uL Mean Platelet Volume 9.2 fL Neutrophils (%) (Auto) 84.5 % Lymphocytes (%) (Auto) 10.8 % Monocytes (%) (Auto) 4.2 % Eosinophils (%) (Auto) 0.0 % Basophils (%) (Auto) 0.0 % Neutrophils # (Auto) 9.94 K/uL Lymphocytes # (Auto) 1.27 K/uL Monocytes # (Auto) 0.50 K/uL Eosinophils # (Auto) 0.00 K/uL Basophils # (Auto) 0.00 K/uL RDW Standard Deviation 47.5 fL RDW Coefficient of Variation 13.6 % Immature Granulocyte % (Auto) 0.5 % Immature Granulocyte # (Auto) 0.06 K/uL Sodium Level 134 mmol/L Potassium Level 4.4 mmol/L Chloride Level 100 mmol/L Carbon Dioxide Level 31 mmol/L Anion Gap 3.0 mmol/L Blood Urea Nitrogen 25 mg/dl Creatinine 0.88 mg/dl Est Creatinine Clear Calc Drug Dose 114.5 ml/min Estimated GFR () 113.7 Estimated GFR (Non- 98.1 BUN/Creatinine Ratio 28.7 Random Glucose 169 mg/dl Calcium Level 8.3 mg/dl Phosphorus Level 3.1 mg/dl Magnesium Level 2.3 mg/dl Procalcitonin 0.05 ng/ml Bedside Glucose 155 mg/dl Blood Gas Sample Site Art Line Bedside Blood Gas pH (LAB) 7.35 Bedside Blood Gas pCO2 (LAB) 64 mmHg Bedside Blood Gas pO2 (LAB) 40 mmHg Bedside Blood Gas HCO3 (LAB) 35 meq/L Bedside Blood Gas Total CO2 37 mEq/l Bedside Blood Gas Base Excess (LAB) 9.0 meq/L Bedside Blood Gas O2 Saturation 72.0 % [place] Test NA Oxygen Delivery Device Ventilator Bedside Oxygen Rate (breaths/min) 22 Blood Gas Minute Ventilation 7.8 Bedside FiO2 30 % Blood Gas Tidal Volume 400 Blood Gas PEEP 14 Diagnostic Radiology: cxr today 1. Satisfactory support line placement. 2. Slight improvement in the pulmonary edema pattern. Assessment & Plan 52 y/o M w/ severe complex chronic lung disease admitted w/ presumptive PCP pneumonia on broad antibiotic coverage including w/ bactrim and vanco currently intubated w/ concern for volume overload. His creatinine had doubled as of yesterday to 1.8 but this am returned to baseline w/ acceptable chemistries this am. His respiratory acidemia is controlled so far on the ventilator though remains challenging to ventilate. Lactate wnl. Not oliguric. Today his WBC are improved; some worsened anemia but not critical -needs vanco level w/ next labs/ before next dose >>level <5 -daily bmp w/ ionized calcium -no indication at this time for dialysis but will follow closely -reasonable to continue to use lasix prn if this will help his respiratory status Appreciate consult; will follow with you.
[2018-03-04] MEDS ORDERED: VANCOMYCIN IV 2,250 MG in SODIUM CHLORIDE 0.9% 500ML 500 ML IV STA (10:57)
--- NOTE | 2018-03-04 11:23 | Pharmacy Progress Note ---
Pharmacy Antibiotic Prog Note Date of Service Mar 04, 2018. Subjective The patient is currently receiving vancomycin prn levels The patient is currently on day # 2 of vancomycin IV therapy. Objective Height (Feet): 5 Height (Inches): 10.00 Weight (Kilograms): 99.400 Lab Results (24hrs): Test 03/03/18 11:42 03/03/18 11:54 03/03/18 12:10 03/03/18 12:30 Blood Gas Sample Site Art Line Bedside Blood Gas pH (LAB) 7.29 (7.35-7.45) Bedside Blood Gas pCO2 (LAB) 74 mmHg (35-46) Bedside Blood Gas pO2 (LAB) 73 mmHg (80-95) Bedside Blood Gas HCO3 (LAB) 35 meq/L (19-24) Bedside Blood Gas Total CO2 37 mEq/l (24-31) Bedside Blood Gas Base Excess (LAB) 8.0 meq/L (-9-1.8) Bedside Blood Gas O2 Saturation 92.0 % (90-95) [place] Test NA Oxygen Delivery Device Ventilator Bedside Oxygen Rate (breaths/min) 18 Blood Gas Minute Ventilation 6.8 Bedside FiO2 30 % Blood Gas Tidal Volume 400 Blood Gas PEEP 14 Lactate Dehydrogenase 538 U/L (87-241) Body Fluid Polynuclear WBCs 78.0 % Body Fluid Mononuclear Cells 22.0 % Urine Color YELLOW Urine Appearance TURBID (CLEAR) Urine pH 5.0 (4.5-7.5) Urine Specific [place] 1.024 (1.000-1.030) Urine Protein NEG (NEG) Urine Glucose (UA) NEG (NEG) Urine Ketones NEG (NEG) Urine Occult Blood 3+ (NEG) Urine Nitrite NEG (NEG) Urine Bilirubin NEG (NEG) Urine Urobilinogen NEG (NEG) Urine Leukocyte Esterase NEG (NEG) Urine WBC (Auto) 1-5 /hpf (0-5) Urine RBC (Auto) 10-30 /hpf (0-4) Urine Hyaline Casts (Auto) 1-5 /lpf (0-5) Urine Epithelial Cells (Auto) 5-10 /lpf (0-5) Urine Bacteria (Auto) NEG (NEG) Test 03/03/18 12:43 03/03/18 23:35 03/04/18 04:17 03/04/18 05:37 Bedside Glucose 205 mg/dl (70-99) 155 mg/dl (70-99) White Blood Count 11.77 K/uL (4.8-10.8) Red Blood Count 3.37 M/uL (4.7-6.1) Hemoglobin 10.7 g/dL (14.0-18.0) Hematocrit 32.3 % (42-52) Mean Corpuscular Volume 95.8 fL (80-100) Mean Corpuscular Hemoglobin 31.8 pg (25-34) Mean Corpuscular Hemoglobin Concent 33.1 g/dl (32-36) Platelet Count 153 K/uL (130-400) Mean Platelet Volume 9.2 fL (7.4-10.4) Neutrophils (%) (Auto) 84.5 % Lymphocytes (%) (Auto) 10.8 % Monocytes (%) (Auto) 4.2 % Eosinophils (%) (Auto) 0.0 % Basophils (%) (Auto) 0.0 % Neutrophils # (Auto) 9.94 K/uL (1.4-6.5) Lymphocytes # (Auto) 1.27 K/uL (1.2-3.4) Monocytes # (Auto) 0.50 K/uL (0.11-0.59) Eosinophils # (Auto) 0.00 K/uL (0-0.5) Basophils # (Auto) 0.00 K/uL (0-0.2) RDW Standard Deviation 47.5 fL (36.4-46.3) RDW Coefficient of Variation 13.6 % (11.5-14.5) Immature Granulocyte % (Auto) 0.5 % Immature Granulocyte # (Auto) 0.06 K/uL (0.00-0.02) Sodium Level 134 mmol/L (136-145) Potassium Level 4.4 mmol/L (3.5-5.1) Chloride Level 100 mmol/L (98-107) Carbon Dioxide Level 31 mmol/L (21-32) Anion Gap 3.0 mmol/L (3-11) Blood Urea Nitrogen 25 mg/dl (7-18) Creatinine 0.88 mg/dl (0.60-1.40) Est Creatinine Clear Calc Drug Dose 114.5 ml/min Estimated GFR () 113.7 Estimated GFR (Non- 98.1 BUN/Creatinine Ratio 28.7 (10-20) Random Glucose 169 mg/dl (70-99) Calcium Level 8.3 mg/dl (8.5-10.1) Phosphorus Level 3.1 mg/dl (2.5-4.9) Magnesium Level 2.3 mg/dl (1.8-2.4) Procalcitonin 0.05 ng/ml (0-0.5) Test 03/04/18 05:49 03/04/18 08:37 03/04/18 11:06 Blood Gas Sample Site Art Line Bedside Blood Gas pH (LAB) 7.35 (7.35-7.45) Bedside Blood Gas pCO2 (LAB) 64 mmHg (35-46) Bedside Blood Gas pO2 (LAB) 40 mmHg (80-95) Bedside Blood Gas HCO3 (LAB) 35 meq/L (19-24) Bedside Blood Gas Total CO2 37 mEq/l (24-31) Bedside Blood Gas Base Excess (LAB) 9.0 meq/L (-9-1.8) Bedside Blood Gas O2 Saturation 72.0 % (90-95) [place] Test NA Oxygen Delivery Device Ventilator Bedside Oxygen Rate (breaths/min) 22 Blood Gas Minute Ventilation 7.8 Bedside FiO2 30 % Blood Gas Tidal Volume 400 Blood Gas PEEP 14 Random Vancomycin Level 4.5 mcg/ml Assessment & Plan Assessment * 52 yo M w hx COPD on chronic steroids as outpatient, mechanically ventilated in ICU with likely pulmonary infection - PCP vs. atypical PNA vs. other. * On Zosyn, vancomycin, azithromycin, and Bactrim * Renal function * SCr increased significantly yesterday from 0.9 to 1.8 - nephrology was consulted. Today is back at baseline of 0.9 without the need for HD * Concern for ongoing renal impairment despite improvement today as patient is on multiple nephrotoxic medications (Bactrim, Zosyn, vancomycin, prn furosemide) Vancomycin * Dosing was appropriate for renal function yesterday (03/03) at 20 mg/kg IV x1 dose in AM - planned to re-eval renal function in AM today (03/04) and make changes if necessary * Goal vancomycin 15-20 mcg/mL * Obtained STAT level this AM as renal function seemed to improve significantly and was concerned for subtherapeutic level as last dose was 03/03 AM. Level was significantly subtherapeutic at 4.5 mcg/mL * Will re-load with small loading dose of 22 mg/kg x1 now * Still concerned for ongoing renal dysfunction, although patient seems to be OK now. Will give one additional dose tonight but then hold AM dose tomorrow, pending evaluation of AM level/SCr Plan * Vancomycin 2250 mg IV x1 now * Vancomycin 1500 mg IV q10h (1st dose 03/04 2200. 2nd dose anticipated 03/05 0800 on hold pending eval of AM level/SCr) * Random level 03/05 @ 0730 Pharmacy will continue to follow and will adjust dose/frequency as necessary. Thank you
[2018-03-04] MEDS: PANTOprazole INJ 40 MG in SYRINGE 0 ML IV SCH (11:25)
--- NOTE | 2018-03-04 11:44 | Critical Care Progress Note ---
Critical Care Progress Note Date of Service Mar 04, 2018. Attending Dr. London Subjective Mr. Winchester is currently sedated and being ventilated and is unable to contribute to a ROS. Overnight, an attempt was made to discontinue his Nimbex, however the patient was fighting the ventilator and his oxygen saturations dropped to 70%. He was restarted on the Nimbex and has remained stable since. Objective GENERAL: Sedated with paralytics, on mechanical ventilator. Right triple lumen IJ and right arterial line in place. Feeds at 20mls/hr through OG tube HENT: Normocephalic, atraumatic. RESPIRATORY: Decreased breath sounds bilaterally. CARDIAC: Regular rate, normal rhythm. ABDOMEN: Soft, non-distended. No tenderness to palpation. LOWER EXTREMITIES: Calves are equal size bilaterally and non-tender. No edema. Assessment & Plan Mr. Winchester is a 52-year-old male with a history of asthma & COPD who was admitted to the ICU for acute on chronic respiratory failure with noted hypoxia and respiratory distress. He was unable to tolerate BiPAP and has been maintained on 5L of oxygen via oxymask. 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 An attempt on 03/04 AM to take him off the nimbex failed, and he was subsequently restarted on nimbex. He has remained stable since, and we will not make any further changes to his medications today. Neuro: Sedation - sedated with Versed Pain nimbex for paralytic (continue for 24h), and fentanyl prn for pain Chronic Pain - Continue Gabapentin Depression - Continue Paxil Resp: Hypersensitivity Pneumonitis/ARDS - remain on 40mg IV q8h of methylpred - follow ARDS protocol w/higher PEEP and lower FiO2 - bronchoscopy performed -> awaiting results of bronchial washings obtained for culture, cytology, fungal cx, AFB stain and culture and silver stain -> gram stain and fungal smear negative - pulmonary consulted - thank you for recs -> Pneumonia - classical vs. atypical -> awaiting legionella antigen and mycoplasma antibodies -> restart Bactrim at lower dose given MAHAD - coverage for PJP (given elevated LDH) - thank you to ID for consult -> LDH elevated at 538, awaiting silver stain for pneumocystis carinii -> awaiting legionella urinary antigen - procal 0.05 today CV: - Dyslipidemia -> Continue Statin - Continue home ASA - Appeared to have vascular overload noted on CXR initially with neg BNP - ECHO showed EF = 65-70% w/grade 1 diastolic dysfunction. No wall motion abnormalities. - CXR today shows improvement in pulmonary edema - no further diuresis indicated Fluids/Renal: - Creatinine improved to 0.88, with a BUN of 25 - restart bactrim at lower dose to avoid MAHAD - hold off on maintenance IVF as pt receiving 1/2-1L of fluid with IV medications - nephro following ID: - Remains afebrile, leukocytosis improving - Continue Zosyn IV, Azithro PO, IV vancomycin and bactrim IV -> can step down once causative organism is identified - Blood Cultures pending - preliminary negative GI/Nutrition: - continue feeds as per nutrition - up to 20mls/hr through OG tube GERD - Pantoprazole 40mg IV daily Heme: - Hgb 10.7, MCV normal - Plts 153, decreased from 228 - will continue to follow Endocrine: - HbA1c = 6.5% - Accu-Checks per protocol, SSI ordered - blood sugar = 155-205 Access: Right triple lumen IJ and right radial A line DVT Prophylaxis: 5,000 units heparin q8h Code status: FULL Resident Physician Supervision Note: Dr. Tamayo was resident physician during care of patient. I separately evaluated patient and did history and exam. I discussed the case with the resident and generally agree with the findings and plan. Patient became acutely hypoxic after discontinuation of neuromuscular blockade, will continue for another 24 hours. I have updated the of the results. Still pending silver stain with regards to Bactrim dosing however significant improvement in the patient's creatinine as well as urine output. Patient remains critically ill. I have personally spent 45 minutes of critical care time in the direct management of this patient. This is a life/limb threatening event. This includes time spent evaluating patient, direct bedside care, chart review, placing orders, interpretation of diagnostic studies, discussion with consultants, patient, and/or family members regarding treatment decisions, as well as other required patient management activities. This time is exclusive of all separately billable procedures, and teaching time and separate from and in addition to any other critical care service time. Documented By: Serafin London DO Data Medications: Current Inpatient Medications Medications (Trade) Dose Ordered Sig/Nemo Route Start Time Stop Time Status Last Admin Dose Admin Gabapentin (Neurontin Cap) 100 mg BID PO 03/02/18 09:00 04/01/18 08:59 03/04/18 08:46 100 MG Paroxetine HCl (pAXil TAB) 40 mg DAILY PO 03/02/18 09:00 04/01/18 08:59 03/04/18 08:46 40 MG Pravastatin Sodium (Pravachol Tab) 40 mg HS PO 03/02/18 21:00 04/01/18 20:59 03/03/18 20:48 40 MG Ranitidine HCl (zANTac TAB) 300 mg BID PO 03/02/18 09:00 04/01/18 08:59 Future Hold 03/02/18 20:40 300 MG Furosemide 20 mg/ Syringe 2 ml @ 4 mls/min BID IV 03/02/18 09:00 04/01/18 08:59 Future Hold 03/02/18 20:38 4 MLS/MIN Levalbuterol (Xopenex 0.63 Mg/ 3 Ml Neb) 0.63 mg Q4H PRN INH 03/01/18 23:15 03/31/18 23:14 03/02/18 01:58 0.63 MG Azithromycin (Zithromax Tab) 500 mg DAILY@2100 PO 03/02/18 21:00 03/09/18 20:59 03/03/18 20:48 500 MG Piperacillin Sod/ Tazobactam Sod 4.5 gm/Dextrose 120 ml @ 30 mls/hr Q8H IV 03/02/18 04:00 03/09/18 03:59 03/04/18 11:25 30 MLS/HR Miscellaneous Information (Consult) 1 ea UD PRN N/A 03/01/18 23:15 03/31/18 23:14 Acetaminophen (Tylenol Tab) 1,000 mg Q8H PRN PO 03/01/18 23:45 03/31/18 23:44 Lorazepam (Ativan Inj) 1 mg Q6H PRN IV 03/02/18 09:45 04/01/18 09:44 03/02/18 20:52 1 MG Glucose (Glucose 40% Gel) 15-30 GRAMS 15 GRAMS... UD PRN PO 03/02/18 12:45 04/01/18 12:44 Glucose (Glucose Chew Tab) 4-8 Tablets 4 Tabl... UD PRN PO 03/02/18 12:45 04/01/18 12:44 Dextrose (Dextrose 50% 50ML Syringe) 25-50ML 25ML FOR ... UD PRN IV 03/02/18 12:45 04/01/18 12:44 Glucagon (Glucagon Inj) 1 mg UD PRN IM 03/02/18 12:45 04/01/18 12:44 Carbohydrates (Carbohydrates For Hypoglycemia) 15-30 GRAMS 15 grams if BSG 54-69... UD PRN PO 03/02/18 12:45 04/01/18 12:44 Miscellaneous Information (Consult Glycemic Management Pharmacy) 1 ea UD PRN N/A 03/02/18 12:45 04/01/18 12:44 Insulin Aspart (novoLOG ASPART) SLIDING SCALE G... Q6H SC 03/02/18 12:45 04/01/18 12:44 03/03/18 23:38 2 UNITS Prednisone (PredniSONE TAB) 30 mg BID PO 03/02/18 21:00 04/01/18 20:59 Future Hold 03/02/18 20:40 30 MG Morphine Sulfate (MoRPHine SULFATE INJ) 2 mg Q4H PRN IV 03/02/18 23:15 03/16/18 23:14 03/02/18 23:47 2 MG Ondansetron HCl (Zofran Inj) 4 mg Q6H PRN IV 03/02/18 23:45 04/01/18 23:44 Fentanyl Citrate 250 ml @ 0 mls/hr Q0M PRN IV 03/03/18 02:59 03/17/18 02:58 03/04/18 08:44 30 MLS/HR Midazolam HCl 250 ml @ 0 mls/hr Q0M PRN IV 03/03/18 02:59 04/02/18 02:58 03/04/18 08:45 20 MLS/HR Pantoprazole Sodium 40 mg/ Syringe 10 ml @ 5 mls/min DAILY@1100 IV 03/03/18 03:30 04/02/18 03:29 03/04/18 11:25 5 MLS/MIN Cisatracurium Besylate 40 mg/ Sodium Chloride 100 ml @ 0 mls/hr Q0M PRN IV 03/03/18 03:30 04/02/18 03:29 03/04/18 07:12 16.3 MLS/HR Ipratropium [place] (Atrovent Hfa Inhaler) 4 puffs QIDR INH 03/03/18 08:00 04/02/18 07:59 03/03/18 19:57 4 PUFFS Levalbuterol (Xopenex Hfa Inhaler) 4 puffs QIDR INH 03/03/18 08:00 04/02/18 07:59 03/03/18 19:56 4 PUFFS Aspirin (Aspirin Chew) 325 mg DAILY PO 03/03/18 09:00 04/02/18 08:59 03/04/18 08:44 324 MG Methylprednisolone Sodium Succinate 40 mg/Syringe 0.64 ml @ 1.5 mls/min Q8H IV 03/03/18 09:00 04/02/18 08:59 03/04/18 08:44 1.5 MLS/MIN Miscellaneous Information (Consult) 1 ea UD PRN N/A 03/03/18 09:00 04/02/18 08:59 Heparin Sodium (Porcine) (Heparin Sq 5000 Unit/0.5ml) 5,000 unit Q8H SQ 03/04/18 09:00 04/03/18 08:59 03/04/18 08:47 5,000 UNIT Enteral Nutritional Formula (Peptamen Intense VHP) 1,000 ml UD PRN OG 03/03/18 16:30 04/02/18 16:29 03/03/18 19:22 1,000 ML Trimethoprim/ Sulfamethoxazole 368 mg/Dextrose 523 ml @ 333 mls/hr Q6H IV 03/04/18 03:00 03/11/18 02:59 03/04/18 08:44 333 MLS/HR Vancomycin HCl 2250 mg/Sodium Chloride 545 ml @ 200 mls/hr NOW STAT IV 03/04/18 10:57 03/04/18 13:40 03/04/18 11:25 200 MLS/HR Vancomycin HCl 1500 mg/Sodium Chloride 530 ml @ 200 mls/hr Q10H IV 03/04/18 22:00 03/11/18 21:59 Future Hold Vital Signs: Date Time Temp Pulse Resp B/P (MAP) Pulse Ox O2 Delivery O2 Flow Rate FiO2 03/04/18 11:29 50 03/04/18 11:21 50 03/04/18 10:00 77 22 118/74 (89) 100 Mechanical Ventilator 60 03/04/18 09:00 81 22 124/87 (99) 100 Mechanical Ventilator 60 03/04/18 08:00 36.5 88 22 125/73 (90) 100 Mechanical Ventilator 60 03/04/18 08:00 60 03/04/18 08:00 Mechanical Ventilator 60 03/04/18 07:40 60 03/04/18 07:00 97 17 141/77 (98) 88 Mechanical Ventilator 60 03/04/18 06:01 83 22 141/88 (93) 83 141/69 03/04/18 05:35 60 03/04/18 05:30 67 22 117/57 (77) 90 03/04/18 05:00 69 22 101/64 (69) 89 117/58 03/04/18 04:30 66 22 115/58 (75) 91 03/04/18 04:00 36.4 03/04/18 04:00 65 22 96/63 (71) 90 110/56 03/04/18 04:00 91 Mechanical Ventilator 30 03/04/18 04:00 30 03/04/18 03:30 66 22 113/57 (75) 91 03/04/18 03:00 64 22 100/66 (73) 92 111/58 03/04/18 02:30 65 22 107/54 (72) 90 03/04/18 02:00 69 22 103/66 (72) 91 115/58 03/04/18 02:00 40 03/04/18 01:30 69 22 116/58 (77) 95 18 01:00 70 22 102/65 (70) 94 114/56 03/04/18 00:30 72 22 116/57 (77) 93 03/04/18 00:09 70 22 119/77 (93) 95 134/70 03/04/18 00:01 36.4 03/04/18 00:00 73 22 120/61 (81) 94 03/03/18 23:59 93 Mechanical Ventilator 40 03/03/18 23:59 40 03/03/18 23:30 72 22 118/58 (78) 94 6/8/18 23:00 69 22 95/61 (68) 94 112/54 6/8/18 23:00 30 6/8/18 22:30 75 22 110/55 (73) 92 6/8/18 22:00 66 22 93/59 (67) 93 107/55 6/8/18 21:30 67 22 106/56 (73) 94 6/8/18 21:00 67 22 102/66 (74) 94 113/61 6/8/18 20:30 67 22 111/56 (75) 92 6/8/18 20:00 30 6/8/18 20:00 36.4 6/8/18 20:00 92 Mechanical Ventilator 30 6//18 20:00 66 22 101/66 (77) 93 105/53 6/8/18 19:58 30 6/8/18 19:30 68 22 104/41 (67) 95 6/8/18 19:00 71 22 105/68 (79) 93 109/55 6/8/18 18:00 36.6 6/8/18 17:50 70 22 101/66 (75) 110/56 6/8/18 17:45 72 22 102/68 (77) 113/58 6/8/18 17:40 72 22 106/71 (80) 114/60 6/8/18 17:35 72 22 102/69 (78) 117/60 6/8/18 17:31 69 22 119/82 (91) 90 126/68 6/8/18 17:30 30 6/8/18 17:10 69 95/61 (65) 93 96/44 6/8/18 17:05 75 101/67 (74) 92 109/54 6/8/18 17:00 76 103/68 (74) 93 107/53 6/8/18 16:55 75 104/71 (80) 92 111/54 6/8/18 16:50 75 101/65 (74) 92 107/51 6/8/18 16:45 76 102/67 (78) 92 109/53 6/8/18 16:40 76 98/64 (74) 92 107/51 6/8/18 16:35 75 103/69 (74) 92 110/53 6/8/18 16:30 75 102/70 (76) 92 107/51 6/8/18 16:25 77 106/69 (81) 92 110/53 6/8/18 16:20 76 102/67 (73) 92 109/52 6/8/18 16:15 74 101/68 (78) 91 106/49 6/8/18 16:10 77 109/69 (77) 92 114/54 6/8/18 16:05 78 107/72 (79) 92 116/54 6/8/18 16:00 30 6/8/18 16:00 81 109/70 (76) 92 117/54 6/8/18 16:00 94 Mechanical Ventilator 30 6/18 15:00 37.3 84 22 114/76 (83) 92 124/60 6/8/18 14:40 30 6/8/18 14:00 37.3 84 22 114/76 (83) 92 124/60 6/8/18 13:00 37.3 84 22 114/76 (83) 92 124/60 6/8/18 12:55 84 114/76 (83) 92 124/60 6/8/18 12:50 82 116/78 (91) 93 126/63 6/8/18 12:45 81 116/80 (91) 95 125/61 6/8/18 12:45 30 6/8/18 12:40 84 122/80 (89) 93 123/61 6/8/18 12:35 82 114/77 (82) 93 121/60 6/8/18 12:30 83 115/77 (83) 93 121/61 6/8/18 12:25 84 116/75 (82) 97 122/61 6/8/18 12:20 84 22 115/78 (83) 98 124/63 6/8/18 12:15 85 22 116/79 (83) 98 121/62 6/8/18 12:15 84 22 116/79 100 Mask 50 6/8/18 12:10 87 22 121/82 (92) 100 123/64 6/8/18 12:09 87 22 127/67 100 Mask 50 6/8/18 12:05 90 22 132/88 (100) 100 142/79 6/8/18 12:05 88 24 132/88 100 Mechanical Ventilator 138/74 6/8/18 12:00 91 22 124/91 100 Mechanical Ventilator 100 143/75 03/03/18 12:00 83 23 124/91 (98) 97 125/62 03/03/18 12:00 30 03/03/18 12:00 93 Mechanical Ventilator 30 Laboratory Results: Last 24 Hours Test 03/03/18 11:40 03/03/18 11:42 03/03/18 11:54 03/03/18 12:10 Bedside Glucose 138 mg/dl Blood Gas Sample Site Art Line Bedside Blood Gas pH (LAB) 7.29 Bedside Blood Gas pCO2 (LAB) 74 mmHg Bedside Blood Gas pO2 (LAB) 73 mmHg Bedside Blood Gas HCO3 (LAB) 35 meq/L Bedside Blood Gas Total CO2 37 mEq/l Bedside Blood Gas Base Excess (LAB) 8.0 meq/L Bedside Blood Gas O2 Saturation 92.0 % [place] Test NA Oxygen Delivery Device Ventilator Bedside Oxygen Rate (breaths/min) 18 Blood Gas Minute Ventilation 6.8 Bedside FiO2 30 % Blood Gas Tidal Volume 400 Blood Gas PEEP 14 Lactate Dehydrogenase 538 U/L Body Fluid Polynuclear WBCs 78.0 % Body Fluid Mononuclear Cells 22.0 % Test 03/03/18 12:30 03/03/18 12:43 03/03/18 18:49 03/03/18 23:35 Urine Color YELLOW Urine Appearance TURBID Urine pH 5.0 Urine Specific [place] 1.024 Urine Protein NEG Urine Glucose (UA) NEG Urine Ketones NEG Urine Occult Blood 3+ Urine Nitrite NEG Urine Bilirubin NEG Urine Urobilinogen NEG Urine Leukocyte Esterase NEG Urine WBC (Auto) 1-5 /hpf Urine RBC (Auto) 10-30 /hpf Urine Hyaline Casts (Auto) 1-5 /lpf Urine Epithelial Cells (Auto) 5-10 /lpf Urine Bacteria (Auto) NEG Bedside Glucose 136 mg/dl 205 mg/dl Test 03/04/18 04:17 03/04/18 05:37 03/04/18 05:49 03/04/18 08:37 White Blood Count 11.77 K/uL Red Blood Count 3.37 M/uL Hemoglobin 10.7 g/dL Hematocrit 32.3 % Mean Corpuscular Volume 95.8 fL Mean Corpuscular Hemoglobin 31.8 pg Mean Corpuscular Hemoglobin Concent 33.1 g/dl Platelet Count 153 K/uL Mean Platelet Volume 9.2 fL Neutrophils (%) (Auto) 84.5 % Lymphocytes (%) (Auto) 10.8 % Monocytes (%) (Auto) 4.2 % Eosinophils (%) (Auto) 0.0 % Basophils (%) (Auto) 0.0 % Neutrophils # (Auto) 9.94 K/uL Lymphocytes # (Auto) 1.27 K/uL Monocytes # (Auto) 0.50 K/uL Eosinophils # (Auto) 0.00 K/uL Basophils # (Auto) 0.00 K/uL RDW Standard Deviation 47.5 fL RDW Coefficient of Variation 13.6 % Immature Granulocyte % (Auto) 0.5 % Immature Granulocyte # (Auto) 0.06 K/uL Sodium Level 134 mmol/L Potassium Level 4.4 mmol/L Chloride Level 100 mmol/L Carbon Dioxide Level 31 mmol/L Anion Gap 3.0 mmol/L Blood Urea Nitrogen 25 mg/dl Creatinine 0.88 mg/dl Est Creatinine Clear Calc Drug Dose 114.5 ml/min Estimated GFR () 113.7 Estimated GFR (Non- 98.1 BUN/Creatinine Ratio 28.7 Random Glucose 169 mg/dl Calcium Level 8.3 mg/dl Phosphorus Level 3.1 mg/dl Magnesium Level 2.3 mg/dl Procalcitonin 0.05 ng/ml Bedside Glucose 155 mg/dl Blood Gas Sample Site Art Line Bedside Blood Gas pH (LAB) 7.35 Bedside Blood Gas pCO2 (LAB) 64 mmHg Bedside Blood Gas pO2 (LAB) 40 mmHg Bedside Blood Gas HCO3 (LAB) 35 meq/L Bedside Blood Gas Total CO2 37 mEq/l Bedside Blood Gas Base Excess (LAB) 9.0 meq/L Bedside Blood Gas O2 Saturation 72.0 % [place] Test NA Oxygen Delivery Device Ventilator Bedside Oxygen Rate (breaths/min) 22 Blood Gas Minute Ventilation 7.8 Bedside FiO2 30 % Blood Gas Tidal Volume 400 Blood Gas PEEP 14 Random Vancomycin Level 4.5 mcg/ml Test 03/04/18 11:20 Resident Tracking Resident Involvement: Resident Care Provided Care Provided: Adult Hospital Medicine
--- NOTE | 2018-03-04 17:40 | Progress Note ---
Medicine Progress Note Date & Time of Visit: Mar 04, 2018 at 17:36. Subjective Pt was seen and examined Sedated, intubated on vent support Objective Last 8 Hrs Date Time Temp Pulse Resp B/P (MAP) Pulse Ox O2 Delivery O2 Flow Rate FiO2 03/04/18 16:00 30 03/04/18 16:00 Mechanical Ventilator 60 03/04/18 16:00 36.4 91 22 125/66 (85) 94 Mechanical Ventilator 30 124/57 (79) 03/04/18 15:00 80 22 116/70 (85) 99 Mechanical Ventilator 40 03/04/18 14:00 85 22 119/68 (85) 99 Mechanical Ventilator 40 03/04/18 13:00 36.8 84 22 122/74 (90) 96 Mechanical Ventilator 50 121/57 (78) 03/04/18 12:00 50 03/04/18 12:00 Mechanical Ventilator 60 03/04/18 12:00 85 22 124/74 (91) 98 Mechanical Ventilator 50 03/04/18 11:29 50 03/04/18 11:21 50 03/04/18 11:00 80 22 118/75 (89) 100 Mechanical Ventilator 60 03/04/18 10:00 77 22 118/74 (89) 100 Mechanical Ventilator 60 Physical Exam: General- No acute distress Head- atraumatic Eyes- PERRL, EOMI ENT- Intubated Neck- supple, no JVD Lungs- clear to auscultation Heart- regular rhythm; no murmur Abdomen- normal bowel sounds, soft Extremities- no calf tenderness Neuro- alert, oriented x 3; PERRL Skin- warm & dry Laboratory Results: Last 24 Hours Test 03/03/18 18:49 03/03/18 23:35 03/04/18 04:17 03/04/18 05:37 Bedside Glucose 136 mg/dl 205 mg/dl 155 mg/dl White Blood Count 11.77 K/uL Red Blood Count 3.37 M/uL Hemoglobin 10.7 g/dL Hematocrit 32.3 % Mean Corpuscular Volume 95.8 fL Mean Corpuscular Hemoglobin 31.8 pg Mean Corpuscular Hemoglobin Concent 33.1 g/dl Platelet Count 153 K/uL Mean Platelet Volume 9.2 fL Neutrophils (%) (Auto) 84.5 % Lymphocytes (%) (Auto) 10.8 % Monocytes (%) (Auto) 4.2 % Eosinophils (%) (Auto) 0.0 % Basophils (%) (Auto) 0.0 % Neutrophils # (Auto) 9.94 K/uL Lymphocytes # (Auto) 1.27 K/uL Monocytes # (Auto) 0.50 K/uL Eosinophils # (Auto) 0.00 K/uL Basophils # (Auto) 0.00 K/uL RDW Standard Deviation 47.5 fL RDW Coefficient of Variation 13.6 % Immature Granulocyte % (Auto) 0.5 % Immature Granulocyte # (Auto) 0.06 K/uL Sodium Level 134 mmol/L Potassium Level 4.4 mmol/L Chloride Level 100 mmol/L Carbon Dioxide Level 31 mmol/L Anion Gap 3.0 mmol/L Blood Urea Nitrogen 25 mg/dl Creatinine 0.88 mg/dl Est Creatinine Clear Calc Drug Dose 114.5 ml/min Estimated GFR () 113.7 Estimated GFR (Non- 98.1 BUN/Creatinine Ratio 28.7 Random Glucose 169 mg/dl Calcium Level 8.3 mg/dl Phosphorus Level 3.1 mg/dl Magnesium Level 2.3 mg/dl Procalcitonin 0.05 ng/ml Test 03/04/18 05:49 03/04/18 08:37 03/04/18 11:20 03/04/18 11:55 Blood Gas Sample Site Art Line Bedside Blood Gas pH (LAB) 7.35 Bedside Blood Gas pCO2 (LAB) 64 mmHg Bedside Blood Gas pO2 (LAB) 40 mmHg Bedside Blood Gas HCO3 (LAB) 35 meq/L Bedside Blood Gas Total CO2 37 mEq/l Bedside Blood Gas Base Excess (LAB) 9.0 meq/L Bedside Blood Gas O2 Saturation 72.0 % [place] Test NA Oxygen Delivery Device Ventilator Bedside Oxygen Rate (breaths/min) 22 Blood Gas Minute Ventilation 7.8 Bedside FiO2 30 % Blood Gas Tidal Volume 400 Blood Gas PEEP 14 Random Vancomycin Level 4.5 mcg/ml Lactic Acid Level 1.2 mmol/L Bedside Glucose 157 mg/dl Test 03/04/18 11:59 03/04/18 13:30 Blood Gas Sample Site Art Line Bedside Blood Gas pH (LAB) 7.30 Bedside Blood Gas pCO2 (LAB) 71 mmHg Bedside Blood Gas pO2 (LAB) 177 mmHg Bedside Blood Gas HCO3 (LAB) 35 meq/L Bedside Blood Gas Total CO2 37 mEq/l Bedside Blood Gas Base Excess (LAB) 8.0 meq/L Bedside Blood Gas O2 Saturation 99.0 % [place] Test NA Oxygen Delivery Device Ventilator Bedside Oxygen Rate (breaths/min) 22 Blood Gas Minute Ventilation 7.7 Bedside FiO2 50 % Blood Gas Tidal Volume 370 Blood Gas PEEP 16 Date/Time Source Procedure Growth Status 03/04/18 13:30 Sputum Expectorated Sputum Gram Stain Pending Received 03/04/18 13:30 Sputum Expectorated Sputum Sputum Culture Pending Received Assessment & Plan ACUTE ON CHRONIC HYPOXIC RESPIRATORY FAILURE Possible related to hypersensitivity Pneumonitis CXR showed findings suggest asymmetric pulmonary edema or multifocal pneumonia. Was starting on BIPAP in the ICU Received solumedrol in the ER Steroid changed to prednisone 30mg BID Procalcitonin wayne WBC elevated Continue Zosyn IV and Bactrim adding Continue oxygen supplement and neb treatment Continue monitor in tele Pulmonology on board 03/04 Sedated and intubated on vent support Possible ARDS vs pneumocystis carinii pneumonia S/p bronch showed diffuse alveolar hemorrhage CXR done today showed slight improvement in the pulmonary edema pattern. Bronchial washings sent for culture and Gram stain, cytology, fungal elements, and AFB stain and culture and silver stain. Bronchial washing culture showed no growth blood cx no growth Continue abx with zosyn, bactrim, Vanco and zithromax Continue steroid IV ID, pulmonology and Caster Operator on board PULMONARY EDEMA ON CXR BNP wnl Lasix on hold ECHO showed * Normal LV chamber size and wall thickness. * Normal LV systolic function, EF 65-70%. * No segmental left ventricular wall motion abnormalities are noted. * Grade I diastolic dysfunction. * Poorly visualized RV. * No significant valvular pathology. Acute Kidney failure Creatine improves to 0.8 Lasix on hold Monitor BMP SLEEP APNEA Continue CPAP / BiPAP. GERD Continue ranitidine. TOBACCO USE Counselling on smoking cessation VTE PROPHYLAXIS SQ enoxaparin. Ambulate. RESUSCITATION STATUS Full code. . Current Inpatient Medications: Current Inpatient Medications Medications (Trade) Dose Ordered Sig/Nemo Route Start Time Stop Time Status Last Admin Dose Admin Gabapentin (Neurontin Cap) 100 mg BID PO 03/02/18 09:00 04/01/18 08:59 03/04/18 08:46 100 MG Paroxetine HCl (pAXil TAB) 40 mg DAILY PO 03/02/18 09:00 04/01/18 08:59 03/04/18 08:46 40 MG Pravastatin Sodium (Pravachol Tab) 40 mg HS PO 03/02/18 21:00 04/01/18 20:59 03/03/18 20:48 40 MG Ranitidine HCl (zANTac TAB) 300 mg BID PO 03/02/18 09:00 04/01/18 08:59 Future Hold 03/02/18 20:40 300 MG Furosemide 20 mg/ Syringe 2 ml @ 4 mls/min BID IV 03/02/18 09:00 04/01/18 08:59 Future Hold 03/02/18 20:38 4 MLS/MIN Levalbuterol (Xopenex 0.63 Mg/ 3 Ml Neb) 0.63 mg Q4H PRN INH 03/01/18 23:15 03/31/18 23:14 03/02/18 01:58 0.63 MG Azithromycin (Zithromax Tab) 500 mg DAILY@2100 PO 03/02/18 21:00 03/09/18 20:59 03/03/18 20:48 500 MG Piperacillin Sod/ Tazobactam Sod 4.5 gm/Dextrose 120 ml @ 30 mls/hr Q8H IV 03/02/18 04:00 03/09/18 03:59 03/04/18 11:25 30 MLS/HR Miscellaneous Information (Consult) 1 ea UD PRN N/A 03/01/18 23:15 03/31/18 23:14 Acetaminophen (Tylenol Tab) 1,000 mg Q8H PRN PO 03/01/18 23:45 03/31/18 23:44 Lorazepam (Ativan Inj) 1 mg Q6H PRN IV 03/02/18 09:45 04/01/18 09:44 03/02/18 20:52 1 MG Glucose (Glucose 40% Gel) 15-30 GRAMS 15 GRAMS... UD PRN PO 03/02/18 12:45 04/01/18 12:44 Glucose (Glucose Chew Tab) 4-8 Tablets 4 Tabl... UD PRN PO 03/02/18 12:45 04/01/18 12:44 Dextrose (Dextrose 50% 50ML Syringe) 25-50ML 25ML FOR ... UD PRN IV 03/02/18 12:45 04/01/18 12:44 Glucagon (Glucagon Inj) 1 mg UD PRN IM 03/02/18 12:45 04/01/18 12:44 Carbohydrates (Carbohydrates For Hypoglycemia) 15-30 GRAMS 15 grams if BSG 54-69... UD PRN PO 03/02/18 12:45 04/01/18 12:44 Miscellaneous Information (Consult Glycemic Management Pharmacy) 1 ea UD PRN N/A 03/02/18 12:45 04/01/18 12:44 Insulin Aspart (novoLOG ASPART) SLIDING SCALE G... Q6H SC 03/02/18 12:45 04/01/18 12:44 03/04/18 17:33 3 UNITS Prednisone (PredniSONE TAB) 30 mg BID PO 03/02/18 21:00 04/01/18 20:59 Future Hold 03/02/18 20:40 30 MG Morphine Sulfate (MoRPHine SULFATE INJ) 2 mg Q4H PRN IV 03/02/18 23:15 03/16/18 23:14 03/02/18 23:47 2 MG Ondansetron HCl (Zofran Inj) 4 mg Q6H PRN IV 03/02/18 23:45 04/01/18 23:44 Fentanyl Citrate 250 ml @ 0 mls/hr Q0M PRN IV 03/03/18 02:59 03/17/18 02:58 03/04/18 08:44 30 MLS/HR Midazolam HCl 250 ml @ 0 mls/hr Q0M PRN IV 03/03/18 02:59 04/02/18 02:58 03/04/18 08:45 20 MLS/HR Pantoprazole Sodium 40 mg/ Syringe 10 ml @ 5 mls/min DAILY@1100 IV 03/03/18 03:30 04/02/18 03:29 03/04/18 11:25 5 MLS/MIN Cisatracurium Besylate 40 mg/ Sodium Chloride 100 ml @ 0 mls/hr Q0M PRN IV 03/03/18 03:30 04/02/18 03:29 03/04/18 12:13 11.5 MLS/HR Ipratropium [place] (Atrovent Hfa Inhaler) 4 puffs QIDR INH 03/03/18 08:00 04/02/18 07:59 03/04/18 11:20 4 PUFFS Levalbuterol (Xopenex Hfa Inhaler) 4 puffs QIDR INH 03/03/18 08:00 04/02/18 07:59 03/04/18 11:20 4 PUFFS Aspirin (Aspirin Chew) 325 mg DAILY PO 03/03/18 09:00 04/02/18 08:59 03/04/18 08:44 324 MG Methylprednisolone Sodium Succinate 40 mg/Syringe 0.64 ml @ 1.5 mls/min Q8H IV 03/03/18 09:00 04/02/18 08:59 03/04/18 15:59 1.5 MLS/MIN Miscellaneous Information (Consult) 1 ea UD PRN N/A 03/03/18 09:00 04/02/18 08:59 Heparin Sodium (Porcine) (Heparin Sq 5000 Unit/0.5ml) 5,000 unit Q8H SQ 03/04/18 09:00 04/03/18 08:59 03/04/18 16:00 5,000 UNIT Enteral Nutritional Formula (Peptamen Intense VHP) 1,000 ml UD PRN OG 03/03/18 16:30 04/02/18 16:29 03/03/18 19:22 1,000 ML Trimethoprim/ Sulfamethoxazole 368 mg/Dextrose 523 ml @ 333 mls/hr Q6H IV 03/04/18 03:00 03/11/18 02:59 03/04/18 15:59 333 MLS/HR Vancomycin HCl 1500 mg/Sodium Chloride 530 ml @ 200 mls/hr Q10H IV 03/04/18 22:00 03/11/18 21:59 Future Hold
[2018-03-04] MEDS: AZITHROMYCIN 250 MG TAB PO SCH (21:03)
[2018-03-04] MEDS: PRAVASTATIN SOD 40 MG TAB PO SCH (21:03)
[2018-03-04] MEDS: VANCOMYCIN IV 1,500 MG in SODIUM CHLORIDE 0.9% 500ML 500 ML IV SCH (22:46)
[2018-03-05] VITALS (25 sets, daily range): BP systolic 115–161; BP diastolic 59–106; PULSE 74–113; TEMP 37.3–37.6; O2SAT 87–97
[2018-03-05] MEDS: INSULIN ASPART 100 UNITS/ML 3 ML PEN SC SCH ×4 (00:15→16:25)
[2018-03-05] MEDS: METHYLPREDNISOLONE IV 40 MG in SYRINGE 0 ML IV SCH ×3 (00:50→21:05)
[2018-03-05] MEDS: HEPARIN SOD 5000 UNIT/0.5 ML CARP SQ SCH ×3 (00:51→15:56)
[2018-03-05] MEDS: MIDAZOLAM 125MG/250ML D5W 250 ML IV PRN ×2 (00:52→15:57)
[2018-03-05] MEDS: DEXTROSE 5% IV SCH ×4 (02:55→21:04)
[2018-03-05] MEDS: TRIMETH IV SCH ×4 (02:55→21:04)
[2018-03-05] MEDS: SULFA IV SCH ×4 (02:55→21:04)
[2018-03-05] MEDS: PIPERACILL/TAZOBAC IV 4.5 GM in DEXTROSE 5% 100ML 100 ML IV SCH ×3 (04:47→20:23)
[2018-03-05 05:12] LABS: HEMATOCRIT 31.6 % (42-52); HEMOGLOBIN 10.4 g/dL (14.0-18.0); IG# 0.06 K/uL (0.00-0.02); LYMPH % 10.5 %; LYMPH ABS # 1.22 K/uL (1.2-3.4); MEAN CELL VOLUME 95.2 fL (80-100); MEAN CORPUSCULAR HEMOGLOBIN 31.3 pg (25-34); MEAN CORPUSCULAR HGB CONC 32.9 g/dl (32-36); MEAN PLATELET VOLUME 9.6 fL (7.4-10.4); MONO ABS # 0.81 K/uL (0.11-0.59); PLATELET COUNT 164 K/uL (130-400); RED CELL DISTRIBUTION WIDTH CV 13.1 % (11.5-14.5); RED CELL DISTRIBUTION WIDTH SD 45.7 fL (36.4-46.3); WHITE BLOOD COUNT 11.59 K/uL (4.8-10.8)
[2018-03-05 05:52] LABS: CALCIUM 8.1 mg/dl (8.5-10.1); CREATININE 0.87 mg/dl (0.60-1.40); PHOSPHORUS 2.4 mg/dl (2.5-4.9)
[2018-03-05] MEDS: IPRATROPIUM BROMIDE HFA INHALER INH SCH ×4 (07:20→19:49)
[2018-03-05] MEDS: LEValbuterol HFA 15GM INHALER INH SCH ×4 (07:20→19:49)
[2018-03-05] MEDS ORDERED: SODIUM PHOSPHATE 3 MMOL/1 ML INFUSION IV ONE (08:30)
--- NOTE | 2018-03-05 08:37 | Pharmacy Progress Note ---
Pharmacy Antibiotic Prog Note Date of Service Mar 05, 2018. Subjective The patient is currently receiving vancomycin 1500 mg IV every 10 hours. The patient is currently on day # 3 of vancomycin IV therapy. Objective Height (Feet): 5 Height (Inches): 10.00 Weight (Kilograms): 100.300 Lab Results (24hrs): Test 03/04/18 08:37 03/04/18 11:20 03/04/18 11:59 03/04/18 13:30 Random Vancomycin Level 4.5 mcg/ml Lactic Acid Level 1.2 mmol/L (0.4-2.0) Blood Gas Sample Site Art Line Bedside Blood Gas pH (LAB) 7.30 (7.35-7.45) Bedside Blood Gas pCO2 (LAB) 71 mmHg (35-46) Bedside Blood Gas pO2 (LAB) 177 mmHg (80-95) Bedside Blood Gas HCO3 (LAB) 35 meq/L (19-24) Bedside Blood Gas Total CO2 37 mEq/l (24-31) Bedside Blood Gas Base Excess (LAB) 8.0 meq/L (-9-1.8) Bedside Blood Gas O2 Saturation 99.0 % (90-95) [place] Test NA Oxygen Delivery Device Ventilator Bedside Oxygen Rate (breaths/min) 22 Blood Gas Minute Ventilation 7.7 Bedside FiO2 50 % Blood Gas Tidal Volume 370 Blood Gas PEEP 16 Test 03/04/18 23:57 03/05/18 05:01 03/05/18 05:36 03/05/18 05:58 Bedside Glucose 180 mg/dl (70-99) 164 mg/dl (70-99) White Blood Count 11.59 K/uL (4.8-10.8) Red Blood Count 3.32 M/uL (4.7-6.1) Hemoglobin 10.4 g/dL (14.0-18.0) Hematocrit 31.6 % (42-52) Mean Corpuscular Volume 95.2 fL (80-100) Mean Corpuscular Hemoglobin 31.3 pg (25-34) Mean Corpuscular Hemoglobin Concent 32.9 g/dl (32-36) Platelet Count 164 K/uL (130-400) Mean Platelet Volume 9.6 fL (7.4-10.4) Neutrophils (%) (Auto) 82.0 % Lymphocytes (%) (Auto) 10.5 % Monocytes (%) (Auto) 7.0 % Eosinophils (%) (Auto) 0.0 % Basophils (%) (Auto) 0.0 % Neutrophils # (Auto) 9.50 K/uL (1.4-6.5) Lymphocytes # (Auto) 1.22 K/uL (1.2-3.4) Monocytes # (Auto) 0.81 K/uL (0.11-0.59) Eosinophils # (Auto) 0.00 K/uL (0-0.5) Basophils # (Auto) 0.00 K/uL (0-0.2) RDW Standard Deviation 45.7 fL (36.4-46.3) RDW Coefficient of Variation 13.1 % (11.5-14.5) Immature Granulocyte % (Auto) 0.5 % Immature Granulocyte # (Auto) 0.06 K/uL (0.00-0.02) Sodium Level 134 mmol/L (136-145) Potassium Level 5.0 mmol/L (3.5-5.1) Chloride Level 99 mmol/L (98-107) Carbon Dioxide Level 32 mmol/L (21-32) Anion Gap 3.0 mmol/L (3-11) Blood Urea Nitrogen 19 mg/dl (7-18) Creatinine 0.87 mg/dl (0.60-1.40) Est Creatinine Clear Calc Drug Dose 116.1 ml/min Estimated GFR () 114.2 Estimated GFR (Non- 98.5 BUN/Creatinine Ratio 22.2 (10-20) Random Glucose 150 mg/dl (70-99) Calcium Level 8.1 mg/dl (8.5-10.1) Phosphorus Level 2.4 mg/dl (2.5-4.9) Magnesium Level 2.2 mg/dl (1.8-2.4) Blood Gas Sample Site Art Line Bedside Blood Gas pH (LAB) 7.39 (7.35-7.45) Bedside Blood Gas pCO2 (LAB) 54 mmHg (35-46) Bedside Blood Gas pO2 (LAB) 57 mmHg (80-95) Bedside Blood Gas HCO3 (LAB) 32 meq/L (19-24) Bedside Blood Gas Total CO2 34 mEq/l (24-31) Bedside Blood Gas Base Excess (LAB) 7.0 meq/L (-9-1.8) Bedside Blood Gas O2 Saturation 88.0 % (90-95) [place] Test NA Oxygen Delivery Device Ventilator Bedside Oxygen Rate (breaths/min) 22 Blood Gas Minute Ventilation 8.2 Bedside FiO2 30 % Blood Gas Tidal Volume 370 Blood Gas PEEP 10 Test 03/05/18 07:15 Random Vancomycin Level 18.5 mcg/ml Assessment & Plan Assessment * 52 yo M w hx COPD on chronic steroids as outpatient, mechanically ventilated in ICU with likely pulmonary infection - PCP vs. atypical PNA vs. other. * On Zosyn, vancomycin, azithromycin, and Bactrim * Renal function * SCr remains at/near baseline today. * Will continue to monitor for acute changes in renal function despite sustained improvement today as patient is on multiple nephrotoxic medications ( Bactrim, Zosyn, vancomycin, prn furosemide) and recently had acute renal impairment Vancomycin * Goal vancomycin 15-20 mcg/mL * Trough level of 18.5 mcg/mL this AM is therapeutic. However, this level was drawn before steady state and therefore anticipate further accumulation if dose is maintained * Therefore will decrease dose slightly in order to try to maintain level * Will obtain early level tomorrow to ensure level does not become subtherapeutic 2nd dose decrease Plan * Decrease vancomycin 1250 mg IV q10h * Trough 03/06 @ 1330 Pharmacy will continue to follow and will adjust dose/frequency as necessary. Thank you
[2018-03-05] MEDS: VANCOMYCIN IV 1,500 MG in SODIUM CHLORIDE 0.9% 500ML 500 ML IV SCH (08:48)
[2018-03-05] MEDS: PANTOprazole INJ 40 MG in SYRINGE 0 ML IV SCH (08:49)
[2018-03-05] MEDS: GABAPENTIN 100 MG CAP PO SCH ×2 (08:50→21:05)
[2018-03-05] MEDS: ASPIRIN 324 MG CHEW PO SCH (08:50)
[2018-03-05] MEDS: PAROXETINE 20 MG TAB PO SCH (08:50)
[2018-03-05] MEDS ORDERED: SODIUM PHOSPHATE INJ 15 MMOL in SODIUM CHLORIDE 0.9% 250ML 250 ML IV ONE (09:00)
[2018-03-05] MEDS: FENTANYL 1250MCG/250ML NSS 250 ML IV PRN ×2 (09:12→15:57)
--- NOTE | 2018-03-05 10:04 | Pharmacy Progress Note ---
Pharmacy Glycemic Short Note 2 Date of Service Mar 05, 2018. OUTPATIENT ANTIDIABETIC REGIMEN: * None Test 03/04/18 11:55 03/04/18 17:28 03/04/18 23:57 03/05/18 05:01 Bedside Glucose 157 mg/dl (70-99) 222 mg/dl (70-99) 180 mg/dl (70-99) Random Glucose 150 mg/dl (70-99) Test 03/05/18 05:58 Bedside Glucose 164 mg/dl (70-99) ASSESSMENT: * Blood sugars mostly well controlled, did have one above range at 222mg/dl yesterday. Pt did better with one time dose of Lantus on 03/04, will repeat and give another one time dose of Lantus today, as pt is still in critical condition on IV steroids ATC, multiple antibiotics, and intubated. PLAN FOR INPATIENT GLYCEMIC CONTROL: * Basal insulin * Lantus 10 units SQ x1 dose now * Bolus insulin * NovoLog per scale ACHS or Q6hrs while NPO * Goal Range: Low 120 mg/dL - High 160 mg/dL * Correction Factor: 25 mg/dL/unit * Nutritional / Prandial insulin per carb ratio of 1 unit per 8 grams CHO consumed
[2018-03-05] MEDS ORDERED: LANTUS PER UNIT CHARGE SQ ONE (10:15)
--- NOTE | 2018-03-05 12:47 | DIAGNOSTIC IMAGING REPORT ---
CHEST ONE VIEW PORTABLE HISTORY: 52 years-old Male intubated acute respiratory failure COMPARISON: Chest radiograph 03/04/2018 TECHNIQUE: Portable AP view of the chest FINDINGS: Endotracheal tube overlies the midline, 3.6 cm superior to the raad. Right internal jugular central venous catheter is noted within the expected region of the SVC. Enteric tube courses below the diaphragm into the region of the mid gastric lumen. Cardiac silhouette is enlarged. No pneumothorax. Mixed interstitial and alveolar opacities are noted throughout the lungs bilaterally, progressively worsened from prior study with small left and trace right pleural effusions. Pulmonary vascular congestion. Unchanged sigmoidal scoliosis with multiple remote rib deformities bilaterally. IMPRESSION: 1. Satisfactory positioning of life-support lines and tubes. 2. Cardiomegaly with progressively worsened pulmonary edema. The above report was generated using voice recognition software. It may contain grammatical, syntax or spelling errors. Electronically signed by: Bonifacio Fsihman M.D. 03/05/2018 12:46 PM Dictated Date/Time: 03/05/2018 12:44 PM
--- NOTE | 2018-03-05 14:14 | Critical Care Progress Note ---
Critical Care Progress Note Date of Service Mar 05, 2018. Attending Dr. London Subjective Mr. Winchester is sedated and unable to contribute to a ROS. Overnight, no acute events were reported. This AM anaya 48h of neuromuscular blockade, and his nimbex was switched off. His initial settings prior to the discontinuation of nimbex were 10 of PEEP at 30% FiO2, and this was subsequently raised to 20 of PEEP at 70% given his oxygen saturations starting dropping into the 80s. Objective GENERAL: Sedated, on mechanical ventilator. Right triple lumen IJ and right arterial line in place. HENT: Normocephalic, atraumatic. RESPIRATORY: Decreased breath sounds bilaterally. CARDIAC: Regular rate, normal rhythm. ABDOMEN: Soft, non-distended. No tenderness to palpation. LOWER EXTREMITIES: Calves are equal size bilaterally and non-tender. No edema. Assessment & Plan Mr. Winchester is a 52-year-old male with a history of asthma & COPD who was admitted to the ICU for acute on chronic respiratory failure with noted hypoxia and respiratory distress. He was unable to tolerate BiPAP and has been maintained on 5L of oxygen via oxymask. 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 Neuro: Sedation - sedated with Versed Pain - nimbex discontinued - continue fentanyl prn for pain Chronic Pain - Continue Gabapentin Depression - Continue Paxil Resp: Hypersensitivity Pneumonitis/ARDS - decrease 40mg IV q8h of methylpred to 40mg IV BID - follow ARDS protocol w/higher PEEP and lower FiO2 -> with removal of neuromuscular blockade, had to increase FiO2 and PEEP to achieve adequate O2 saturations, will wean as tolerated - daily CXR to monitor - procal tomorrow - sputum culture positive for karla -> likely from oropharynx. If it was a true infection - would expect it to grow in BAL culture - bronchoscopy performed -> awaiting results of bronchial washings obtained for culture, cytology, fungal cx, AFB stain and culture and silver stain - pulmonary consulted - thank you for recs -> Pneumonia - classical vs. atypical -> awaiting legionella antigen and mycoplasma antibodies -> continue Bactrim at lower dose - coverage for PJP (given elevated LDH) - thank you to ID for consult -> LDH elevated at 538, awaiting silver stain for pneumocystis carinii CV: - Dyslipidemia -> Continue Statin - Continue home ASA - ECHO showed EF = 65-70% w/grade 1 diastolic dysfunction. No wall motion abnormalities. Fluids/Renal: - Creatinine stable at 0.87 - hold off on maintenance IVF as pt receiving fluids with IV medications - nephro following ID: - Remains afebrile, leukocytosis improving - Continue Zosyn IV, Azithro PO, IV vancomycin and bactrim IV - Blood Cultures pending - preliminary negative - check HIV test GI/Nutrition: - continue feeds as per nutrition GERD - Pantoprazole 40mg IV daily Heme: - Hgb stable at 10.4, MCV normal - Plts 164 - will continue to follow, likely bone marrow suppression secondary to acute on chronic illness Endocrine: - HbA1c = 6.5% - Accu-Checks per protocol, SSI ordered - blood sugar = 136-205 Access: Right triple lumen IJ and right radial A line DVT Prophylaxis: 5,000 units heparin q8h Code status: FULL Dr. Tamayo was resident physician during care of patient. I separately evaluated patient and did history and exam. I discussed the case with the resident and generally agree with the findings and plan. Patient remains critically ill in severe ARDS. He is now off neuromuscular blockade and we will increase the tube feed administration to goal today. We will also administer diuretic and attempt to keep the patient even to globally negative for fluid status. Data Medications: Current Inpatient Medications Medications (Trade) Dose Ordered Sig/Nemo Route Start Time Stop Time Status Last Admin Dose Admin Gabapentin (Neurontin Cap) 100 mg BID PO 03/02/18 09:00 04/01/18 08:59 03/04/18 21:03 100 MG Paroxetine HCl (pAXil TAB) 40 mg DAILY PO 03/02/18 09:00 04/01/18 08:59 03/04/18 08:46 40 MG Pravastatin Sodium (Pravachol Tab) 40 mg HS PO 03/02/18 21:00 04/01/18 20:59 03/04/18 21:03 40 MG Ranitidine HCl (zANTac TAB) 300 mg BID PO 03/02/18 09:00 04/01/18 08:59 Future Hold 03/02/18 20:40 300 MG Furosemide 20 mg/ Syringe 2 ml @ 4 mls/min BID IV 03/02/18 09:00 04/01/18 08:59 Future Hold 03/02/18 20:38 4 MLS/MIN Levalbuterol (Xopenex 0.63 Mg/ 3 Ml Neb) 0.63 mg Q4H PRN INH 03/01/18 23:15 03/31/18 23:14 03/02/18 01:58 0.63 MG Azithromycin (Zithromax Tab) 500 mg DAILY@2100 PO 03/02/18 21:00 03/09/18 20:59 03/04/18 21:03 500 MG Piperacillin Sod/ Tazobactam Sod 4.5 gm/Dextrose 120 ml @ 30 mls/hr Q8H IV 03/02/18 04:00 03/09/18 03:59 03/05/18 04:47 30 MLS/HR Miscellaneous Information (Consult) 1 ea UD PRN N/A 03/01/18 23:15 03/31/18 23:14 Acetaminophen (Tylenol Tab) 1,000 mg Q8H PRN PO 03/01/18 23:45 03/31/18 23:44 Lorazepam (Ativan Inj) 1 mg Q6H PRN IV 03/02/18 09:45 04/01/18 09:44 03/02/18 20:52 1 MG Glucose (Glucose 40% Gel) 15-30 GRAMS 15 GRAMS... UD PRN PO 03/02/18 12:45 04/01/18 12:44 Glucose (Glucose Chew Tab) 4-8 Tablets 4 Tabl... UD PRN PO 03/02/18 12:45 04/01/18 12:44 Dextrose (Dextrose 50% 50ML Syringe) 25-50ML 25ML FOR ... UD PRN IV 03/02/18 12:45 04/01/18 12:44 Glucagon (Glucagon Inj) 1 mg UD PRN IM 03/02/18 12:45 04/01/18 12:44 Carbohydrates (Carbohydrates For Hypoglycemia) 15-30 GRAMS 15 grams if BSG 54-69... UD PRN PO 03/02/18 12:45 04/01/18 12:44 Miscellaneous Information (Consult Glycemic Management Pharmacy) 1 ea UD PRN N/A 03/02/18 12:45 04/01/18 12:44 Insulin Aspart (novoLOG ASPART) SLIDING SCALE G... Q6H SC 03/02/18 12:45 04/01/18 12:44 03/05/18 06:11 2 UNITS Prednisone (PredniSONE TAB) 30 mg BID PO 03/02/18 21:00 04/01/18 20:59 Future Hold 03/02/18 20:40 30 MG Morphine Sulfate (MoRPHine SULFATE INJ) 2 mg Q4H PRN IV 03/02/18 23:15 03/16/18 23:14 03/02/18 23:47 2 MG Ondansetron HCl (Zofran Inj) 4 mg Q6H PRN IV 03/02/18 23:45 04/01/18 23:44 Fentanyl Citrate 250 ml @ 0 mls/hr Q0M PRN IV 03/03/18 02:59 03/17/18 02:58 03/04/18 20:55 20 MLS/HR Midazolam HCl 250 ml @ 0 mls/hr Q0M PRN IV 03/03/18 02:59 04/02/18 02:58 03/05/18 00:52 14 MLS/HR Pantoprazole Sodium 40 mg/ Syringe 10 ml @ 5 mls/min DAILY@1100 IV 03/03/18 03:30 04/02/18 03:29 03/04/18 11:25 5 MLS/MIN Cisatracurium Besylate 40 mg/ Sodium Chloride 100 ml @ 0 mls/hr Q0M PRN IV 03/03/18 03:30 04/02/18 03:29 03/04/18 21:02 11.5 MLS/HR Ipratropium [place] (Atrovent Hfa Inhaler) 4 puffs QIDR INH 03/03/18 08:00 04/02/18 07:59 03/04/18 18:25 4 PUFFS Levalbuterol (Xopenex Hfa Inhaler) 4 puffs QIDR INH 03/03/18 08:00 04/02/18 07:59 03/04/18 18:25 4 PUFFS Aspirin (Aspirin Chew) 325 mg DAILY PO 03/03/18 09:00 04/02/18 08:59 03/04/18 08:44 324 MG Methylprednisolone Sodium Succinate 40 mg/Syringe 0.64 ml @ 1.5 mls/min Q8H IV 03/03/18 09:00 04/02/18 08:59 03/05/18 00:50 1.5 MLS/MIN Miscellaneous Information (Consult) 1 ea UD PRN N/A 03/03/18 09:00 04/02/18 08:59 Heparin Sodium (Porcine) (Heparin Sq 5000 Unit/0.5ml) 5,000 unit Q8H SQ 03/04/18 09:00 04/03/18 08:59 03/05/18 00:51 5,000 UNIT Enteral Nutritional Formula (Peptamen Intense VHP) 1,000 ml UD PRN OG 03/03/18 16:30 04/02/18 16:29 03/03/18 19:22 1,000 ML Trimethoprim/ Sulfamethoxazole 368 mg/Dextrose 523 ml @ 333 mls/hr Q6H IV 03/04/18 03:00 03/11/18 02:59 03/05/18 02:55 333 MLS/HR Vancomycin HCl 1500 mg/Sodium Chloride 530 ml @ 200 mls/hr Q10H IV 03/04/18 22:00 03/11/18 21:59 Future Hold 03/04/18 22:46 200 MLS/HR Vital Signs: Date Time Temp Pulse Resp B/P (MAP) Pulse Ox O2 Delivery O2 Flow Rate FiO2 03/05/18 06:32 40 03/05/18 06:00 74 22 122/59 (80) 89 Mechanical Ventilator 30 03/05/18 05:13 30 03/05/18 05:00 80 22 119/61 (80) 89 Mechanical Ventilator 30 03/05/18 04:00 37.3 80 22 118/64 (82) 91 Mechanical Ventilator 30 03/05/18 04:00 90 Mechanical Ventilator 30 03/05/18 04:00 30 03/05/18 03:00 86 22 123/65 (84) 91 Mechanical Ventilator 30 03/05/18 02:00 86 22 115/61 (79) 92 Mechanical Ventilator 30 03/05/18 01:51 30 03/05/18 01:00 91 22 115/69 (84) 89 Mechanical Ventilator 30 03/05/18 00:00 37.3 94 22 119/69 (86) 89 Mechanical Ventilator 30 03/04/18 23:59 90 Mechanical Ventilator 30 03/04/18 23:59 30 03/04/18 23:00 93 22 113/65 (81) 89 Mechanical Ventilator 30 03/04/18 22:15 30 03/04/18 22:00 90 22 112/57 (75) 89 Mechanical Ventilator 30 03/04/18 21:00 94 22 126/61 (82) 90 Mechanical Ventilator 30 03/04/18 20:00 30 03/04/18 20:00 94 Mechanical Ventilator 30 03/04/18 20:00 36.8 98 22 129/61 (83) 91 Mechanical Ventilator 30 03/04/18 19:37 30 03/04/18 19:00 98 22 140/62 (88) 93 Mechanical Ventilator 30 03/04/18 18:05 30 03/04/18 18:00 96 22 130/71 (90) 94 Mechanical Ventilator 30 03/04/18 17:00 88 22 121/57 (78) 94 Mechanical Ventilator 30 03/04/18 16:00 30 03/04/18 16:00 Mechanical Ventilator 60 03/04/18 16:00 36.4 91 22 125/66 (85) 94 Mechanical Ventilator 30 124/57 (79) 03/04/18 15:20 40 03/04/18 15:00 80 22 116/70 (85) 99 Mechanical Ventilator 40 03/04/18 14:00 85 22 119/68 (85) 99 Mechanical Ventilator 40 03/04/18 13:00 36.8 84 22 122/74 (90) 96 Mechanical Ventilator 50 121/57 (78) 03/04/18 12:00 50 03/04/18 12:00 Mechanical Ventilator 60 03/04/18 12:00 85 22 124/74 (91) 98 Mechanical Ventilator 50 03/04/18 11:29 50 03/04/18 11:21 50 03/04/18 11:00 80 22 118/75 (89) 100 Mechanical Ventilator 60 03/04/18 10:00 77 22 118/74 (89) 100 Mechanical Ventilator 60 03/04/18 09:00 81 22 124/87 (99) 100 Mechanical Ventilator 60 03/04/18 08:00 36.5 88 22 125/73 (90) 100 Mechanical Ventilator 60 03/04/18 08:00 60 03/04/18 08:00 Mechanical Ventilator 60 03/04/18 07:40 60 Laboratory Results: Last 24 Hours Test 03/04/18 08:37 03/04/18 11:20 03/04/18 11:55 03/04/18 11:59 Random Vancomycin Level 4.5 mcg/ml Lactic Acid Level 1.2 mmol/L Bedside Glucose 157 mg/dl Blood Gas Sample Site Art Line Bedside Blood Gas pH (LAB) 7.30 Bedside Blood Gas pCO2 (LAB) 71 mmHg Bedside Blood Gas pO2 (LAB) 177 mmHg Bedside Blood Gas HCO3 (LAB) 35 meq/L Bedside Blood Gas Total CO2 37 mEq/l Bedside Blood Gas Base Excess (LAB) 8.0 meq/L Bedside Blood Gas O2 Saturation 99.0 % [place] Test NA Oxygen Delivery Device Ventilator Bedside Oxygen Rate (breaths/min) 22 Blood Gas Minute Ventilation 7.7 Bedside FiO2 50 % Blood Gas Tidal Volume 370 Blood Gas PEEP 16 Test 03/04/18 13:30 03/04/18 17:28 03/04/18 23:57 03/05/18 05:01 Bedside Glucose 222 mg/dl 180 mg/dl White Blood Count 11.59 K/uL Red Blood Count 3.32 M/uL Hemoglobin 10.4 g/dL Hematocrit 31.6 % Mean Corpuscular Volume 95.2 fL Mean Corpuscular Hemoglobin 31.3 pg Mean Corpuscular Hemoglobin Concent 32.9 g/dl Platelet Count 164 K/uL Mean Platelet Volume 9.6 fL Neutrophils (%) (Auto) 82.0 % Lymphocytes (%) (Auto) 10.5 % Monocytes (%) (Auto) 7.0 % Eosinophils (%) (Auto) 0.0 % Basophils (%) (Auto) 0.0 % Neutrophils # (Auto) 9.50 K/uL Lymphocytes # (Auto) 1.22 K/uL Monocytes # (Auto) 0.81 K/uL Eosinophils # (Auto) 0.00 K/uL Basophils # (Auto) 0.00 K/uL RDW Standard Deviation 45.7 fL RDW Coefficient of Variation 13.1 % Immature Granulocyte % (Auto) 0.5 % Immature Granulocyte # (Auto) 0.06 K/uL Sodium Level 134 mmol/L Potassium Level 5.0 mmol/L Chloride Level 99 mmol/L Carbon Dioxide Level 32 mmol/L Anion Gap 3.0 mmol/L Blood Urea Nitrogen 19 mg/dl Creatinine 0.87 mg/dl Est Creatinine Clear Calc Drug Dose 116.1 ml/min Estimated GFR () 114.2 Estimated GFR (Non- 98.5 BUN/Creatinine Ratio 22.2 Random Glucose 150 mg/dl Calcium Level 8.1 mg/dl Phosphorus Level 2.4 mg/dl Magnesium Level 2.2 mg/dl Test 03/05/18 05:36 03/05/18 05:58 Blood Gas Sample Site Art Line Bedside Blood Gas pH (LAB) 7.39 Bedside Blood Gas pCO2 (LAB) 54 mmHg Bedside Blood Gas pO2 (LAB) 57 mmHg Bedside Blood Gas HCO3 (LAB) 32 meq/L Bedside Blood Gas Total CO2 34 mEq/l Bedside Blood Gas Base Excess (LAB) 7.0 meq/L Bedside Blood Gas O2 Saturation 88.0 % [place] Test NA Oxygen Delivery Device Ventilator Bedside Oxygen Rate (breaths/min) 22 Blood Gas Minute Ventilation 8.2 Bedside FiO2 30 % Blood Gas Tidal Volume 370 Blood Gas PEEP 10 Bedside Glucose 164 mg/dl Resident Tracking Resident Involvement: Resident Care Provided Care Provided: Adult Hospital Medicine
--- NOTE | 2018-03-05 14:35 | Pulmonology Progress Note ---
Pulmonary Progress Note Date of Service Mar 05, 2018. Attending Dr. Barker Subjective Patient intubated sedated today Objective Patient is currently intubated sedated on mechanical ventilation Vital signs: Vent: AC/370/FiO2: 50%/PEEP:18) Respiratory: Diffuse rhonchi appreciated bilaterally Cardiac: Distant heart sounds but S1-S2 tachycardic Abdomen: Minimal bowel sounds but no hepatomegaly appreciated PmHx: Hypersensitivity pneumonitis/steroid dependent, asthma, severe kyphosis/ scoliosis, mixed restrictive and obstructive ventilatory disease, nephrolithiasis, GRACIE, ureteral stone, migraine headaches I/Os: last 24: +2.1L Total: +957cc UOP last 12hours: 500cc (104cc/hr) Current in hospital workup 1. WBC: [id number] 2. Creatinine: 0.880.87 3. Albumin: 3.2 4. Procalcitonin: 0.10---0.05 5. CXR: Bilateral hilar fullness with peribronchial cuffing and cephalization 6. Pending: LYNDSEY screen, glomerular basement membrane antibody 7. Bronchial lavage: Fungal, bacterial, AFB, silver stain pending 8. Echocardiogram 03/02/2018 Left ventricle: EF=65-70%, LVH, Right ventricle: Poorly visualized Grade 1 diastolic dysfunction Current Pulmonary Medications 1. Heparin subcu 5000 q.8 hours 2. Vancomycin IV Day#: 2 3. Bactrim 20mg/Kg Day#: 2 4. Methylprednisolone 40 mg IV q.12 5. Xopenex/Atrovent q.i.d. 6. Azithromycin 500 mg daily (Day#: 4) 7. Zosyn Day#: 4 Previous Workup Tracheal Aspirate 03/04/2018: Eveline Albicans Bronchial washing 07/18/2017: Yeast species, CD4/CD8: 1.21 Hypersensitivity panel 01/30/2017: [place] herbar IgG Blood Eosinophil 7.9% (10/19/16) Blood Eosinophil 2.8% (08/30/17) Assessment & Plan 52-year-old male admitted with acute on chronic hypoxic respiratory insufficiency: 1. Hypoxemia: Pneumonia classic versus atypical currently antibiotic coverage please see above. As well started Bactrim for possible PCP. Agree with continuing current steroid dosing at current dosing. 2. Vent: Patient currently has a plateau pressure 24 and a peep of 18 with an FiO2 of 50%. We are currently able to maintain a plateau pressure than lost 24 cm H2O. With maintaining his tidal volumes at approximately 5.3 cc/kilogram. Patient is responding well with no subsequent hypercapnia acidosis. 3. ID: Patient still being currently treated with vancomycin, Zosyn, azithromycin 500 mg daily and Bactrim. Final pathologic and microbiologic analysis is not back. Patient did grow out Eveline from a tracheal aspirate performed on 03/04/2018. S the patient grows out from the blood are and/or urine reconsider this contamination at this time. Of note HIV study was sent off yesterday and awaiting results. Data Medications: Current Inpatient Medications Medications (Trade) Dose Ordered Sig/Nemo Route Start Time Stop Time Status Last Admin Dose Admin Gabapentin (Neurontin Cap) 100 mg BID PO 03/02/18 09:00 04/01/18 08:59 03/05/18 08:50 100 MG Paroxetine HCl (pAXil TAB) 40 mg DAILY PO 03/02/18 09:00 04/01/18 08:59 03/05/18 08:50 40 MG Pravastatin Sodium (Pravachol Tab) 40 mg HS PO 03/02/18 21:00 04/01/18 20:59 03/04/18 21:03 40 MG Ranitidine HCl (zANTac TAB) 300 mg BID PO 03/02/18 09:00 04/01/18 08:59 Future Hold 03/02/18 20:40 300 MG Furosemide 20 mg/ Syringe 2 ml @ 4 mls/min BID IV 03/02/18 09:00 04/01/18 08:59 Future Hold 03/02/18 20:38 4 MLS/MIN Levalbuterol (Xopenex 0.63 Mg/ 3 Ml Neb) 0.63 mg Q4H PRN INH 03/01/18 23:15 03/31/18 23:14 03/02/18 01:58 0.63 MG Azithromycin (Zithromax Tab) 500 mg DAILY@2100 PO 03/02/18 21:00 03/09/18 20:59 03/04/18 21:03 500 MG Piperacillin Sod/ Tazobactam Sod 4.5 gm/Dextrose 120 ml @ 30 mls/hr Q8H IV 03/02/18 04:00 03/09/18 03:59 03/05/18 11:40 30 MLS/HR Miscellaneous Information (Consult) 1 ea UD PRN N/A 03/01/18 23:15 03/31/18 23:14 Acetaminophen (Tylenol Tab) 1,000 mg Q8H PRN PO 03/01/18 23:45 03/31/18 23:44 Lorazepam (Ativan Inj) 1 mg Q6H PRN IV 03/02/18 09:45 04/01/18 09:44 03/02/18 20:52 1 MG Glucose (Glucose 40% Gel) 15-30 GRAMS 15 GRAMS... UD PRN PO 03/02/18 12:45 04/01/18 12:44 Glucose (Glucose Chew Tab) 4-8 Tablets 4 Tabl... UD PRN PO 03/02/18 12:45 04/01/18 12:44 Dextrose (Dextrose 50% 50ML Syringe) 25-50ML 25ML FOR ... UD PRN IV 03/02/18 12:45 04/01/18 12:44 Glucagon (Glucagon Inj) 1 mg UD PRN IM 03/02/18 12:45 04/01/18 12:44 Carbohydrates (Carbohydrates For Hypoglycemia) 15-30 GRAMS 15 grams if BSG 54-69... UD PRN PO 03/02/18 12:45 04/01/18 12:44 Miscellaneous Information (Consult Glycemic Management Pharmacy) 1 ea UD PRN N/A 03/02/18 12:45 04/01/18 12:44 Insulin Aspart (novoLOG ASPART) SLIDING SCALE G... Q6H SC 03/02/18 12:45 04/01/18 12:44 03/05/18 06:11 2 UNITS Prednisone (PredniSONE TAB) 30 mg BID PO 03/02/18 21:00 04/01/18 20:59 Future Hold 03/02/18 20:40 30 MG Morphine Sulfate (MoRPHine SULFATE INJ) 2 mg Q4H PRN IV 03/02/18 23:15 03/16/18 23:14 03/02/18 23:47 2 MG Ondansetron HCl (Zofran Inj) 4 mg Q6H PRN IV 03/02/18 23:45 04/01/18 23:44 Fentanyl Citrate 250 ml @ 0 mls/hr Q0M PRN IV 03/03/18 02:59 03/17/18 02:58 03/05/18 09:12 30 MLS/HR Midazolam HCl 250 ml @ 0 mls/hr Q0M PRN IV 03/03/18 02:59 04/02/18 02:58 03/05/18 00:52 14 MLS/HR Pantoprazole Sodium 40 mg/ Syringe 10 ml @ 5 mls/min DAILY@1100 IV 03/03/18 03:30 04/02/18 03:29 03/05/18 08:49 5 MLS/MIN Cisatracurium Besylate 40 mg/ Sodium Chloride 100 ml @ 0 mls/hr Q0M PRN IV 03/03/18 03:30 04/02/18 03:29 03/04/18 21:02 11.5 MLS/HR Ipratropium [place] (Atrovent Hfa Inhaler) 4 puffs QIDR INH 03/03/18 08:00 04/02/18 07:59 03/05/18 11:16 4 PUFFS Levalbuterol (Xopenex Hfa Inhaler) 4 puffs QIDR INH 03/03/18 08:00 04/02/18 07:59 03/05/18 11:16 4 PUFFS Aspirin (Aspirin Chew) 325 mg DAILY PO 03/03/18 09:00 04/02/18 08:59 03/05/18 08:50 324 MG Miscellaneous Information (Consult) 1 ea UD PRN N/A 03/03/18 09:00 04/02/18 08:59 Heparin Sodium (Porcine) (Heparin Sq 5000 Unit/0.5ml) 5,000 unit Q8H SQ 03/04/18 09:00 04/03/18 08:59 03/05/18 08:51 5,000 UNIT Enteral Nutritional Formula (Peptamen Intense VHP) 1,000 ml UD PRN OG 03/03/18 16:30 04/02/18 16:29 03/03/18 19:22 1,000 ML Trimethoprim/ Sulfamethoxazole 368 mg/Dextrose 523 ml @ 333 mls/hr Q6H IV 03/04/18 03:00 03/11/18 02:59 03/05/18 08:49 333 MLS/HR Vancomycin HCl 1250 mg/Sodium Chloride 275 ml @ 125 mls/hr Q10H IV 03/05/18 18:00 03/10/18 08:59 Methylprednisolone Sodium Succinate 40 mg/Syringe 0.64 ml @ 1.5 mls/min BID IV 03/05/18 21:00 04/02/18 08:59 Vital Signs: Date Time Temp Pulse Resp B/P (MAP) Pulse Ox O2 Delivery O2 Flow Rate FiO2 03/05/18 12:00 37.6 104 21 139/93 (108) 95 Mechanical Ventilator 50 03/05/18 12:00 50 03/05/18 12:00 Mechanical Ventilator 50 03/05/18 11:04 50 03/05/18 11:00 108 22 129/88 (102) 93 Mechanical Ventilator 03/05/18 10:00 111 22 157/89 (111) 95 Mechanical Ventilator 03/05/18 09:50 50 03/05/18 09:00 113 22 147/106 (120) 97 Mechanical Ventilator 03/05/18 08:00 Mechanical Ventilator 70 03/05/18 08:00 37.5 109 22 153/94 (113) 96 Mechanical Ventilator 03/05/18 08:00 70 03/05/18 07:25 60 03/05/18 07:00 70 03/05/18 07:00 97 22 161/89 (113) 92 Mechanical Ventilator 70 03/05/18 06:32 40 03/05/18 06:00 74 22 122/59 (80) 89 Mechanical Ventilator 30 03/05/18 05:13 30 03/05/18 05:00 80 22 119/61 (80) 89 Mechanical Ventilator 30 03/05/18 04:00 37.3 80 22 118/64 (82) 91 Mechanical Ventilator 30 03/05/18 04:00 90 Mechanical Ventilator 30 03/05/18 04:00 30 03/05/18 03:00 86 22 123/65 (84) 91 Mechanical Ventilator 30 03/05/18 02:00 86 22 115/61 (79) 92 Mechanical Ventilator 30 03/05/18 01:51 30 03/05/18 01:00 91 22 115/69 (84) 89 Mechanical Ventilator 30 03/05/18 00:00 37.3 94 22 119/69 (86) 89 Mechanical Ventilator 30 03/04/18 23:59 90 Mechanical Ventilator 30 03/04/18 23:59 30 03/04/18 23:00 93 22 113/65 (81) 89 Mechanical Ventilator 30 03/04/18 22:15 30 03/04/18 22:00 90 22 112/57 (75) 89 Mechanical Ventilator 30 03/04/18 21:00 94 22 126/61 (82) 90 Mechanical Ventilator 30 03/04/18 20:00 30 03/04/18 20:00 94 Mechanical Ventilator 30 03/04/18 20:00 36.8 98 22 129/61 (83) 91 Mechanical Ventilator 30 03/04/18 19:37 30 03/04/18 19:00 98 22 140/62 (88) 93 Mechanical Ventilator 30 03/04/18 18:05 30 03/04/18 18:00 96 22 130/71 (90) 94 Mechanical Ventilator 30 03/04/18 17:00 88 22 121/57 (78) 94 Mechanical Ventilator 30 03/04/18 16:00 30 03/04/18 16:00 Mechanical Ventilator 60 03/04/18 16:00 36.4 91 22 125/66 (85) 94 Mechanical Ventilator 30 124/57 (79) 03/04/18 15:20 40 03/04/18 15:00 80 22 116/70 (85) 99 Mechanical Ventilator 40 Laboratory Results: Last 24 Hours Test 03/04/18 17:28 03/04/18 23:57 03/05/18 05:01 03/05/18 05:36 Bedside Glucose 222 mg/dl 180 mg/dl White Blood Count 11.59 K/uL Red Blood Count 3.32 M/uL Hemoglobin 10.4 g/dL Hematocrit 31.6 % Mean Corpuscular Volume 95.2 fL Mean Corpuscular Hemoglobin 31.3 pg Mean Corpuscular Hemoglobin Concent 32.9 g/dl Platelet Count 164 K/uL Mean Platelet Volume 9.6 fL Neutrophils (%) (Auto) 82.0 % Lymphocytes (%) (Auto) 10.5 % Monocytes (%) (Auto) 7.0 % Eosinophils (%) (Auto) 0.0 % Basophils (%) (Auto) 0.0 % Neutrophils # (Auto) 9.50 K/uL Lymphocytes # (Auto) 1.22 K/uL Monocytes # (Auto) 0.81 K/uL Eosinophils # (Auto) 0.00 K/uL Basophils # (Auto) 0.00 K/uL RDW Standard Deviation 45.7 fL RDW Coefficient of Variation 13.1 % Immature Granulocyte % (Auto) 0.5 % Immature Granulocyte # (Auto) 0.06 K/uL Sodium Level 134 mmol/L Potassium Level 5.0 mmol/L Chloride Level 99 mmol/L Carbon Dioxide Level 32 mmol/L Anion Gap 3.0 mmol/L Blood Urea Nitrogen 19 mg/dl Creatinine 0.87 mg/dl Est Creatinine Clear Calc Drug Dose 116.1 ml/min Estimated GFR () 114.2 Estimated GFR (Non- 98.5 BUN/Creatinine Ratio 22.2 Random Glucose 150 mg/dl Calcium Level 8.1 mg/dl Phosphorus Level 2.4 mg/dl Magnesium Level 2.2 mg/dl Blood Gas Sample Site Art Line Bedside Blood Gas pH (LAB) 7.39 Bedside Blood Gas pCO2 (LAB) 54 mmHg Bedside Blood Gas pO2 (LAB) 57 mmHg Bedside Blood Gas HCO3 (LAB) 32 meq/L Bedside Blood Gas Total CO2 34 mEq/l Bedside Blood Gas Base Excess (LAB) 7.0 meq/L Bedside Blood Gas O2 Saturation 88.0 % [place] Test NA Oxygen Delivery Device Ventilator Bedside Oxygen Rate (breaths/min) 22 Blood Gas Minute Ventilation 8.2 Bedside FiO2 30 % Blood Gas Tidal Volume 370 Blood Gas PEEP 10 Test 03/05/18 05:58 03/05/18 07:15 03/05/18 09:40 03/05/18 11:36 Bedside Glucose 164 mg/dl 123 mg/dl Random Vancomycin Level 18.5 mcg/ml Test 03/05/18 12:25
--- NOTE | 2018-03-05 16:27 | Progress Note ---
Medicine Progress Note Date & Time of Visit: Mar 05, 2018 at 16:22. Subjective Pt was seen and examined Sedated and intubated on vent support Neuromuscular blockage off at bedside Objective Last 8 Hrs Date Time Temp Pulse Resp B/P (MAP) Pulse Ox O2 Delivery O2 Flow Rate FiO2 03/05/18 14:25 50 03/05/18 14:00 101 22 142/102 (115) 93 Mechanical Ventilator 50 03/05/18 13:00 105 21 150/84 (106) 93 Mechanical Ventilator 50 03/05/18 12:00 37.6 104 21 139/93 (108) 95 Mechanical Ventilator 50 03/05/18 12:00 50 03/05/18 12:00 Mechanical Ventilator 50 03/05/18 11:04 50 03/05/18 11:00 108 22 129/88 (102) 93 Mechanical Ventilator 03/05/18 10:00 111 22 157/89 (111) 95 Mechanical Ventilator 03/05/18 09:50 50 03/05/18 09:00 113 22 147/106 (120) 97 Mechanical Ventilator Physical Exam: General- No acute distress Head- atraumatic Eyes- PERRL, EOMI ENT- Intubated Neck- supple, no JVD Lungs- clear to auscultation Heart- regular rhythm; no murmur Abdomen- distended Extremities- no calf tenderness Neuro- alert, oriented x 3; PERRL Skin- warm & dry Laboratory Results: Last 24 Hours Test 03/04/18 17:28 03/04/18 23:57 03/05/18 05:01 03/05/18 05:36 Bedside Glucose 222 mg/dl 180 mg/dl White Blood Count 11.59 K/uL Red Blood Count 3.32 M/uL Hemoglobin 10.4 g/dL Hematocrit 31.6 % Mean Corpuscular Volume 95.2 fL Mean Corpuscular Hemoglobin 31.3 pg Mean Corpuscular Hemoglobin Concent 32.9 g/dl Platelet Count 164 K/uL Mean Platelet Volume 9.6 fL Neutrophils (%) (Auto) 82.0 % Lymphocytes (%) (Auto) 10.5 % Monocytes (%) (Auto) 7.0 % Eosinophils (%) (Auto) 0.0 % Basophils (%) (Auto) 0.0 % Neutrophils # (Auto) 9.50 K/uL Lymphocytes # (Auto) 1.22 K/uL Monocytes # (Auto) 0.81 K/uL Eosinophils # (Auto) 0.00 K/uL Basophils # (Auto) 0.00 K/uL RDW Standard Deviation 45.7 fL RDW Coefficient of Variation 13.1 % Immature Granulocyte % (Auto) 0.5 % Immature Granulocyte # (Auto) 0.06 K/uL Sodium Level 134 mmol/L Potassium Level 5.0 mmol/L Chloride Level 99 mmol/L Carbon Dioxide Level 32 mmol/L Anion Gap 3.0 mmol/L Blood Urea Nitrogen 19 mg/dl Creatinine 0.87 mg/dl Est Creatinine Clear Calc Drug Dose 116.1 ml/min Estimated GFR () 114.2 Estimated GFR (Non- 98.5 BUN/Creatinine Ratio 22.2 Random Glucose 150 mg/dl Calcium Level 8.1 mg/dl Phosphorus Level 2.4 mg/dl Magnesium Level 2.2 mg/dl Blood Gas Sample Site Art Line Bedside Blood Gas pH (LAB) 7.39 Bedside Blood Gas pCO2 (LAB) 54 mmHg Bedside Blood Gas pO2 (LAB) 57 mmHg Bedside Blood Gas HCO3 (LAB) 32 meq/L Bedside Blood Gas Total CO2 34 mEq/l Bedside Blood Gas Base Excess (LAB) 7.0 meq/L Bedside Blood Gas O2 Saturation 88.0 % [place] Test NA Oxygen Delivery Device Ventilator Bedside Oxygen Rate (breaths/min) 22 Blood Gas Minute Ventilation 8.2 Bedside FiO2 30 % Blood Gas Tidal Volume 370 Blood Gas PEEP 10 Test 03/05/18 05:58 03/05/18 07:15 03/05/18 09:40 03/05/18 11:36 Bedside Glucose 164 mg/dl 123 mg/dl Random Vancomycin Level 18.5 mcg/ml Test 03/05/18 12:25 Assessment & Plan ACUTE ON CHRONIC HYPOXIC RESPIRATORY FAILURE Possible related to hypersensitivity Pneumonitis CXR showed findings suggest asymmetric pulmonary edema or multifocal pneumonia. Was starting on BIPAP in the ICU Received solumedrol in the ER Steroid changed to prednisone 30mg BID Procalcitonin wayne WBC elevated Continue Zosyn IV and Bactrim adding Continue oxygen supplement and neb treatment Continue monitor in tele Pulmonology on board 03/05 Sedated and intubated on vent support Neuro muscular blockage off Possible ARDS vs pneumocystis carinii pneumonia S/p bronch showed diffuse alveolar hemorrhage CXR done today showed slight improvement in the pulmonary edema pattern. Bronchial washings sent for culture and Gram stain, cytology, fungal elements, and AFB stain and culture and silver stain. Bronchial washing culture showed no growth blood cx no growth Sputum cx grew karla Continue abx with zosyn, bactrim, Vanco and zithromax IV steroid taper to BID Continue vent management as per ceramics instructor ID, pulmonology and [employer] Machine on board PULMONARY EDEMA ON CXR CXR today showed cardiomegaly with progressively worsened pulmonary edema. BNP wnl Might consider to give low dose x1 lasix ECHO showed * Normal LV chamber size and wall thickness. * Normal LV systolic function, EF 65-70%. * No segmental left ventricular wall motion abnormalities are noted. * Grade I diastolic dysfunction. * Poorly visualized RV. * No significant valvular pathology. Acute Kidney failure Creatine improves to 0.8 Lasix on hold Monitor BMP SLEEP APNEA Continue CPAP / BiPAP. GERD Continue ranitidine. TOBACCO USE Counselling on smoking cessation VTE PROPHYLAXIS SQ enoxaparin. Ambulate. RESUSCITATION STATUS Full code. DISPOSITION Continue monitor in the ICU . Current Inpatient Medications: Current Inpatient Medications Medications (Trade) Dose Ordered Sig/Nemo Route Start Time Stop Time Status Last Admin Dose Admin Gabapentin (Neurontin Cap) 100 mg BID PO 03/02/18 09:00 04/01/18 08:59 03/05/18 08:50 100 MG Paroxetine HCl (pAXil TAB) 40 mg DAILY PO 03/02/18 09:00 04/01/18 08:59 03/05/18 08:50 40 MG Pravastatin Sodium (Pravachol Tab) 40 mg HS PO 03/02/18 21:00 04/01/18 20:59 03/04/18 21:03 40 MG Ranitidine HCl (zANTac TAB) 300 mg BID PO 03/02/18 09:00 04/01/18 08:59 Future Hold 03/02/18 20:40 300 MG Furosemide 20 mg/ Syringe 2 ml @ 4 mls/min BID IV 03/02/18 09:00 04/01/18 08:59 Future Hold 03/02/18 20:38 4 MLS/MIN Levalbuterol (Xopenex 0.63 Mg/ 3 Ml Neb) 0.63 mg Q4H PRN INH 03/01/18 23:15 03/31/18 23:14 03/02/18 01:58 0.63 MG Azithromycin (Zithromax Tab) 500 mg DAILY@2100 PO 03/02/18 21:00 03/09/18 20:59 03/04/18 21:03 500 MG Piperacillin Sod/ Tazobactam Sod 4.5 gm/Dextrose 120 ml @ 30 mls/hr Q8H IV 03/02/18 04:00 03/09/18 03:59 03/05/18 11:40 30 MLS/HR Miscellaneous Information (Consult) 1 ea UD PRN N/A 03/01/18 23:15 03/31/18 23:14 Acetaminophen (Tylenol Tab) 1,000 mg Q8H PRN PO 03/01/18 23:45 03/31/18 23:44 Lorazepam (Ativan Inj) 1 mg Q6H PRN IV 03/02/18 09:45 04/01/18 09:44 03/02/18 20:52 1 MG Glucose (Glucose 40% Gel) 15-30 GRAMS 15 GRAMS... UD PRN PO 03/02/18 12:45 04/01/18 12:44 Glucose (Glucose Chew Tab) 4-8 Tablets 4 Tabl... UD PRN PO 03/02/18 12:45 04/01/18 12:44 Dextrose (Dextrose 50% 50ML Syringe) 25-50ML 25ML FOR ... UD PRN IV 03/02/18 12:45 04/01/18 12:44 Glucagon (Glucagon Inj) 1 mg UD PRN IM 03/02/18 12:45 04/01/18 12:44 Carbohydrates (Carbohydrates For Hypoglycemia) 15-30 GRAMS 15 grams if BSG 54-69... UD PRN PO 03/02/18 12:45 04/01/18 12:44 Miscellaneous Information (Consult Glycemic Management Pharmacy) 1 ea UD PRN N/A 03/02/18 12:45 04/01/18 12:44 Insulin Aspart (novoLOG ASPART) SLIDING SCALE G... Q6H SC 03/02/18 12:45 04/01/18 12:44 03/05/18 06:11 2 UNITS Prednisone (PredniSONE TAB) 30 mg BID PO 03/02/18 21:00 04/01/18 20:59 Future Hold 03/02/18 20:40 30 MG Morphine Sulfate (MoRPHine SULFATE INJ) 2 mg Q4H PRN IV 03/02/18 23:15 03/16/18 23:14 03/02/18 23:47 2 MG Ondansetron HCl (Zofran Inj) 4 mg Q6H PRN IV 03/02/18 23:45 04/01/18 23:44 Fentanyl Citrate 250 ml @ 0 mls/hr Q0M PRN IV 03/03/18 02:59 03/17/18 02:58 03/05/18 15:57 30 MLS/HR Midazolam HCl 250 ml @ 0 mls/hr Q0M PRN IV 03/03/18 02:59 04/02/18 02:58 03/05/18 15:57 20 MLS/HR Pantoprazole Sodium 40 mg/ Syringe 10 ml @ 5 mls/min DAILY@1100 IV 03/03/18 03:30 04/02/18 03:29 03/05/18 08:49 5 MLS/MIN Cisatracurium Besylate 40 mg/ Sodium Chloride 100 ml @ 0 mls/hr Q0M PRN IV 03/03/18 03:30 04/02/18 03:29 03/04/18 21:02 11.5 MLS/HR Ipratropium [place] (Atrovent Hfa Inhaler) 4 puffs QIDR INH 03/03/18 08:00 04/02/18 07:59 03/05/18 14:30 4 PUFFS Levalbuterol (Xopenex Hfa Inhaler) 4 puffs QIDR INH 03/03/18 08:00 04/02/18 07:59 03/05/18 14:30 4 PUFFS Aspirin (Aspirin Chew) 325 mg DAILY PO 03/03/18 09:00 04/02/18 08:59 03/05/18 08:50 324 MG Miscellaneous Information (Consult) 1 ea UD PRN N/A 03/03/18 09:00 04/02/18 08:59 Heparin Sodium (Porcine) (Heparin Sq 5000 Unit/0.5ml) 5,000 unit Q8H SQ 03/04/18 09:00 04/03/18 08:59 03/05/18 15:56 5,000 UNIT Enteral Nutritional Formula (Peptamen Intense VHP) 1,000 ml UD PRN OG 03/03/18 16:30 04/02/18 16:29 03/03/18 19:22 1,000 ML Trimethoprim/ Sulfamethoxazole 368 mg/Dextrose 523 ml @ 333 mls/hr Q6H IV 03/04/18 03:00 03/11/18 02:59 03/05/18 15:55 333 MLS/HR Vancomycin HCl 1250 mg/Sodium Chloride 275 ml @ 125 mls/hr Q10H IV 03/05/18 18:00 03/10/18 08:59 Methylprednisolone Sodium Succinate 40 mg/Syringe 0.64 ml @ 1.5 mls/min BID IV 03/05/18 21:00 04/02/18 08:59 Furosemide 20 mg/ Syringe 2 ml @ 4 mls/min NOW ONCE IV 03/05/18 16:30 03/05/18 16:31
[2018-03-05] MEDS ORDERED: FUROSEMIDE INJ 20 MG in SYRINGE 0 ML IV ONE (16:30)
[2018-03-05] MEDS: VANCOMYCIN IV 1,250 MG in SODIUM CHLORIDE 0.9% 250ML 250 ML IV SCH (16:59)
[2018-03-05] MEDS: PRAVASTATIN SOD 40 MG TAB PO SCH (21:05)
[2018-03-05] MEDS: AZITHROMYCIN 250 MG TAB PO SCH (21:06)
[2018-03-06] VITALS (24 sets, daily range): BP systolic 121–173; BP diastolic 64–96; PULSE 72–127; TEMP 36.6–37.7; O2SAT 86–98
[2018-03-06] MEDS: INSULIN ASPART 100 UNITS/ML 3 ML PEN SC SCH ×7 (00:01→23:52)
[2018-03-06] MEDS: FENTANYL 1250MCG/250ML NSS 250 ML IV PRN ×3 (00:51→20:30)
[2018-03-06] MEDS: HEPARIN SOD 5000 UNIT/0.5 ML CARP SQ SCH ×3 (00:52→17:50)
[2018-03-06] MEDS: DEXTROSE 5% IV SCH ×4 (02:49→20:30)
[2018-03-06] MEDS: SULFA IV SCH ×4 (02:49→20:30)
[2018-03-06] MEDS: TRIMETH IV SCH ×4 (02:49→20:30)
[2018-03-06 04:40] LABS: BASO % 0.1 %; BASO ABS # 0.01 K/uL (0-0.2); HEMATOCRIT 34.8 % (42-52); HEMOGLOBIN 11.5 g/dL (14.0-18.0); IG# 0.19 K/uL (0.00-0.02); LYMPH % 11.1 %; LYMPH ABS # 1.21 K/uL (1.2-3.4); MEAN CELL VOLUME 94.6 fL (80-100); MEAN CORPUSCULAR HEMOGLOBIN 31.3 pg (25-34); MEAN PLATELET VOLUME 9.6 fL (7.4-10.4); MONO % 7.4 %; MONO ABS # 0.81 K/uL (0.11-0.59); NEUT % 79.7 %; NEUT ABS # 8.72 K/uL (1.4-6.5); PLATELET COUNT 196 K/uL (130-400); RED CELL DISTRIBUTION WIDTH CV 13.8 % (11.5-14.5); RED CELL DISTRIBUTION WIDTH SD 48.1 fL (36.4-46.3); WHITE BLOOD COUNT 10.94 K/uL (4.8-10.8)
[2018-03-06 04:51] LABS: CALCIUM 8.3 mg/dl (8.5-10.1); CREATININE 1.33 mg/dl (0.60-1.40); PHOSPHORUS 4.2 mg/dl (2.5-4.9); POTASSIUM 5.4 mmol/L (3.5-5.1)
[2018-03-06] MEDS: VANCOMYCIN IV 1,250 MG in SODIUM CHLORIDE 0.9% 250ML 250 ML IV SCH (05:14)
[2018-03-06] MEDS: PIPERACILL/TAZOBAC IV 4.5 GM in DEXTROSE 5% 100ML 100 ML IV SCH (05:14)
[2018-03-06] MEDS: MIDAZOLAM 125MG/250ML D5W 250 ML IV PRN (05:51)
--- NOTE | 2018-03-06 07:07 | DIAGNOSTIC IMAGING REPORT ---
CHEST ONE VIEW PORTABLE CLINICAL HISTORY: hypersensitivity pnemonitis, pnemonia, on vent dyspnea COMPARISON STUDY: 03/05/2018 FINDINGS: Endotracheal tube 2.4 cm with the raad. Pulmonary edema slightly improved from the prior exam. Small left pleural effusion. Nasogastric tube within the stomach. IMPRESSION: Pulmonary edema slightly improved from the prior study. Tubes and lines in good position. The above report was generated using voice recognition software. It may contain grammatical, syntax or spelling errors. Electronically signed by: Sergey Levine M.D. 03/06/2018 7:06 AM Dictated Date/Time: 03/06/2018 7:03 AM
[2018-03-06] MEDS ORDERED: LANTUS PER UNIT CHARGE SQ ONE (07:30)
[2018-03-06] MEDS: IPRATROPIUM BROMIDE HFA INHALER INH SCH ×4 (08:00→19:59)
[2018-03-06] MEDS: LEValbuterol HFA 15GM INHALER INH SCH ×4 (08:00→19:59)
[2018-03-06] MEDS: METHYLPREDNISOLONE IV 40 MG in SYRINGE 0 ML IV SCH ×3 (08:28→21:27)
[2018-03-06] MEDS ORDERED: ASPIRIN 324 MG CHEW PO SCH (09:00)
[2018-03-06] MEDS: PANTOprazole INJ 40 MG in SYRINGE 0 ML IV SCH (09:40)
[2018-03-06] MEDS: GABAPENTIN 100 MG CAP PO SCH ×2 (09:40→20:31)
[2018-03-06] MEDS: PAROXETINE 20 MG TAB PO SCH (09:40)
--- NOTE | 2018-03-06 09:53 | Critical Care Progress Note ---
Critical Care Progress Note Date of Service Mar 06, 2018. Attending Dr. London Subjective Mr. Winchester remains sedated and on a vent. Overnight, he was noted to drop his saturations into the 70s if he woke up briefly. He has otherwise remained stable. He has been off of the neuromuscular blockade for 24h now. His urinary output improved after the 20mg of lasix, however he is up 3.7kg from admission and overall net positive 3.8L. Objective GENERAL: Sedated, on mechanical ventilator. Right triple lumen IJ and right arterial line in place. HENT: Normocephalic, atraumatic. RESPIRATORY: Decreased breath sounds bilaterally. CARDIAC: Regular rate, normal rhythm. ABDOMEN: Soft, non-distended. LOWER EXTREMITIES: Calves are equal size bilaterally. Trace edema. SCDs in place. Assessment & Plan Mr. Winchester is a 52-year-old male with a history of asthma & COPD who was admitted to the ICU for acute on chronic respiratory failure with noted hypoxia and respiratory distress. He was unable to tolerate BiPAP and has been maintained on 5L of oxygen via oxymask. 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 Neuro: Sedation - sedated with Versed, MEAGAN -4 Pain - continue fentanyl prn for pain Chronic Pain - Continue Gabapentin Depression - Continue Paxil Resp: Hypersensitivity Pneumonitis/ARDS - methylpred - increase back to 40mg IV TID given desaturations - follow ARDS protocol w/higher PEEP and lower FiO2 -> currently on FiO2 of 40% and PEEP of 16 - daily CXR to monitor -> today's CXR showed slight improvement in his pulmonary edema - xopenex initiated - procal today -> 0.22, repeat in 48h - sputum culture positive for karla -> likely from oropharynx however upon discussion with path, it was quite heavy for oral colonizatin -> initiate caspofungin treatment -> preliminary BAL cultures negative - pulmonary consulted - thank you for recs -> Pneumonia - classical vs. atypical -> urinary legionella negative, awaiting mycoplasma antibodies -> continue Bactrim at lower dose - coverage for PJP (given elevated LDH) - thank you to ID for consult -> LDH elevated at 538, awaiting silver stain for pneumocystis carinii CV: - Dyslipidemia -> Continue Statin - Continue home ASA - ECHO showed EF = 65-70% w/grade 1 diastolic dysfunction. No wall motion abnormalities. - EKG with QTc of 433 Fluids/Renal: - Creatinine acutely worsened today at 1.33 -> d/c vancomycin as this was the likely culprit - overall net positive 3.8L -> concentrate medications in fluids to reduce the amount of fluids received -> no maintenance IVF -> Lasix 40mg IV today, monitor I/Os. -> aim for overall net negative - follow daily BMP, Mg and phos - nephro following ID: - Remains afebrile, leukocytosis improving - Continue Zosyn IV, bactrim IV and casopofungin IV - d/c vancomycin and azithromycin (5 days of treatment complete) - Blood Cultures pending - preliminary negative - HIV pending GI/Nutrition: - switch feeds to novasource renal tube feeds - management as per nutrition GERD/GI prophylaxis - Pantoprazole 40mg IV daily - pt has not had a BM since admission - initiate bowel regimen: -> docusate, senna and milk of mag - LFTs and lipase Heme: - Hgb stable at 11.5, MCV normal - Plts 196 - will continue to follow, likely bone marrow suppression secondary to acute on chronic illness - decrease CBC to q72h given they have been stable Endocrine: - HbA1c = 6.5% - Accu-Checks per protocol, SSI ordered. 14 units Lantus given this AM due to blood sugars slowly increasing - blood sugar = 130-148 Access: Right triple lumen IJ and right radial A line DVT Prophylaxis: 5,000 units heparin q8h Code status: FULL Dr. Tamayo was resident physician during care of patient. I separately evaluated patient and did history and exam. I discussed the case with the resident and generally agree with the findings and plan. Patient has finished a course of azithromycin, this is been discontinued. I have discontinued the vancomycin, the combination of vancomycin and Zosyn does have implications in renal function, patient's MRSA swab is negative procalcitonin is largely unremarkable and bronchoscopic evaluations did not reveal significant purulence. Feel that the patient was having a MRSA pneumonia he would have significant lung abscess and worsening of his clinical condition, the patient has remained medically ill but relatively stable and his severe illness. I discussed the case with Dr. Barker of pulmonary, we have initiated caspofungin secondary to filamentous findings on bronchial washings after discussion with pathology. I have personally spent 65 minutes of critical care time in the direct management of this patient. This is a life/limb threatening event. This includes time spent evaluating patient, direct bedside care, chart review, placing orders, interpretation of diagnostic studies, discussion with consultants, patient, and/or family members regarding treatment decisions, as well as other required patient management activities. This time is exclusive of all separately billable procedures, and teaching time and separate from and in addition to any other critical care service time. Data Medications: Current Inpatient Medications Medications (Trade) Dose Ordered Sig/Nemo Route Start Time Stop Time Status Last Admin Dose Admin Gabapentin (Neurontin Cap) 100 mg BID PO 03/02/18 09:00 04/01/18 08:59 03/05/18 21:05 100 MG Paroxetine HCl (pAXil TAB) 40 mg DAILY PO 03/02/18 09:00 04/01/18 08:59 03/05/18 08:50 40 MG Pravastatin Sodium (Pravachol Tab) 40 mg HS PO 03/02/18 21:00 04/01/18 20:59 03/05/18 21:05 40 MG Ranitidine HCl (zANTac TAB) 300 mg BID PO 03/02/18 09:00 04/01/18 08:59 Future Hold 03/02/18 20:40 300 MG Furosemide 20 mg/ Syringe 2 ml @ 4 mls/min BID IV 03/02/18 09:00 04/01/18 08:59 Future Hold 03/02/18 20:38 4 MLS/MIN Levalbuterol (Xopenex 0.63 Mg/ 3 Ml Neb) 0.63 mg Q4H PRN INH 03/01/18 23:15 03/31/18 23:14 03/02/18 01:58 0.63 MG Azithromycin (Zithromax Tab) 500 mg DAILY@2100 PO 03/02/18 21:00 03/09/18 20:59 03/05/18 21:06 500 MG Piperacillin Sod/ Tazobactam Sod 4.5 gm/Dextrose 120 ml @ 30 mls/hr Q8H IV 03/02/18 04:00 03/09/18 03:59 03/06/18 05:14 30 MLS/HR Miscellaneous Information (Consult) 1 ea UD PRN N/A 03/01/18 23:15 03/31/18 23:14 Acetaminophen (Tylenol Tab) 1,000 mg Q8H PRN PO 03/01/18 23:45 03/31/18 23:44 Lorazepam (Ativan Inj) 1 mg Q6H PRN IV 03/02/18 09:45 04/01/18 09:44 03/02/18 20:52 1 MG Glucose (Glucose 40% Gel) 15-30 GRAMS 15 GRAMS... UD PRN PO 03/02/18 12:45 04/01/18 12:44 Glucose (Glucose Chew Tab) 4-8 Tablets 4 Tabl... UD PRN PO 03/02/18 12:45 04/01/18 12:44 Dextrose (Dextrose 50% 50ML Syringe) 25-50ML 25ML FOR ... UD PRN IV 03/02/18 12:45 04/01/18 12:44 Glucagon (Glucagon Inj) 1 mg UD PRN IM 03/02/18 12:45 04/01/18 12:44 Carbohydrates (Carbohydrates For Hypoglycemia) 15-30 GRAMS 15 grams if BSG 54-69... UD PRN PO 03/02/18 12:45 04/01/18 12:44 Miscellaneous Information (Consult Glycemic Management Pharmacy) 1 ea UD PRN N/A 03/02/18 12:45 04/01/18 12:44 Prednisone (PredniSONE TAB) 30 mg BID PO 03/02/18 21:00 04/01/18 20:59 Future Hold 03/02/18 20:40 30 MG Morphine Sulfate (MoRPHine SULFATE INJ) 2 mg Q4H PRN IV 03/02/18 23:15 03/16/18 23:14 03/02/18 23:47 2 MG Ondansetron HCl (Zofran Inj) 4 mg Q6H PRN IV 03/02/18 23:45 04/01/18 23:44 Fentanyl Citrate 250 ml @ 0 mls/hr Q0M PRN IV 03/03/18 02:59 03/17/18 02:58 03/06/18 00:51 40 MLS/HR Midazolam HCl 250 ml @ 0 mls/hr Q0M PRN IV 03/03/18 02:59 04/02/18 02:58 03/06/18 05:51 20 MLS/HR Pantoprazole Sodium 40 mg/ Syringe 10 ml @ 5 mls/min DAILY@1100 IV 03/03/18 03:30 04/02/18 03:29 03/05/18 08:49 5 MLS/MIN Cisatracurium Besylate 40 mg/ Sodium Chloride 100 ml @ 0 mls/hr Q0M PRN IV 03/03/18 03:30 04/02/18 03:29 03/04/18 21:02 11.5 MLS/HR Ipratropium [place] (Atrovent Hfa Inhaler) 4 puffs QIDR INH 03/03/18 08:00 04/02/18 07:59 03/05/18 19:49 4 PUFFS Levalbuterol (Xopenex Hfa Inhaler) 4 puffs QIDR INH 03/03/18 08:00 04/02/18 07:59 03/05/18 19:49 4 PUFFS Aspirin (Aspirin Chew) 325 mg DAILY PO 03/03/18 09:00 04/02/18 08:59 03/05/18 08:50 324 MG Miscellaneous Information (Consult) 1 ea UD PRN N/A 03/03/18 09:00 04/02/18 08:59 Heparin Sodium (Porcine) (Heparin Sq 5000 Unit/0.5ml) 5,000 unit Q8H SQ 03/04/18 09:00 04/03/18 08:59 03/06/18 00:52 5,000 UNIT Enteral Nutritional Formula (Peptamen Intense VHP) 1,000 ml UD PRN OG 03/03/18 16:30 04/02/18 16:29 03/03/18 19:22 1,000 ML Trimethoprim/ Sulfamethoxazole 368 mg/Dextrose 523 ml @ 333 mls/hr Q6H IV 03/04/18 03:00 03/11/18 02:59 03/06/18 02:49 333 MLS/HR Vancomycin HCl 1250 mg/Sodium Chloride 275 ml @ 125 mls/hr Q10H IV 03/05/18 18:00 03/10/18 08:59 Future Hold 03/06/18 05:14 125 MLS/HR Methylprednisolone Sodium Succinate 40 mg/Syringe 0.64 ml @ 1.5 mls/min BID IV 03/05/18 21:00 04/02/18 08:59 03/05/18 21:05 1.5 MLS/MIN Heparin Sodium (Porcine) (Heparin 10 Unit/ ml 5 ml Flush) 5 ml PRN PRN FLUSH 03/05/18 23:45 04/04/18 23:44 Insulin Aspart (novoLOG ASPART) SLIDING SCALE G... Q4 SC 03/06/18 09:00 04/05/18 08:59 Vital Signs: Date Time Temp Pulse Resp B/P (MAP) Pulse Ox O2 Delivery O2 Flow Rate FiO2 03/06/18 07:08 40 03/06/18 06:00 98 26 146/88 (107) 94 Mechanical Ventilator 60 03/06/18 05:20 50 03/06/18 05:00 103 22 155/80 (105) 92 Mechanical Ventilator 60 03/06/18 04:00 91 Mechanical Ventilator 50 03/06/18 04:00 37.0 100 22 159/92 (114) 96 Mechanical Ventilator 50 03/06/18 04:00 50 03/06/18 03:35 50 03/06/18 03:00 101 22 153/81 (105) 94 Mechanical Ventilator 50 03/06/18 02:05 50 03/06/18 02:00 99 22 150/80 (103) 86 40 03/06/18 01:00 99 23 140/75 (96) 87 Mechanical Ventilator 40 03/06/18 00:00 37.7 103 22 139/92 (108) 89 Mechanical Ventilator 40 03/05/18 23:59 90 Mechanical Ventilator 40 03/05/18 23:59 40 03/05/18 23:00 101 22 143/79 (100) 96 Mechanical Ventilator 40 03/05/18 23:00 50 03/05/18 22:00 104 23 151/99 (116) 94 Mechanical Ventilator 50 03/05/18 21:00 98 22 149/83 (105) 93 Mechanical Ventilator 50 03/05/18 20:00 94 Mechanical Ventilator 50 03/05/18 20:00 37.4 100 21 146/82 (103) 94 Mechanical Ventilator 50 03/05/18 20:00 50 03/05/18 19:00 101 22 158/84 (108) 87 Mechanical Ventilator 50 03/05/18 18:52 40 03/05/18 18:02 40 03/05/18 18:00 101 22 145/83 (103) 90 Mechanical Ventilator 40 140/94 (109) 03/05/18 17:00 102 22 153/85 (107) 91 Mechanical Ventilator 40 03/05/18 16:00 40 03/05/18 16:00 Mechanical Ventilator 40 03/05/18 16:00 37.3 100 22 141/96 (111) 90 Mechanical Ventilator 40 03/05/18 15:20 40 03/05/18 15:00 101 22 147/83 (104) 92 Mechanical Ventilator 40 03/05/18 14:25 50 03/05/18 14:00 101 22 142/102 (115) 93 Mechanical Ventilator 50 03/05/18 13:00 105 21 150/84 (106) 93 Mechanical Ventilator 50 03/05/18 12:00 37.6 104 21 139/93 (108) 95 Mechanical Ventilator 50 03/05/18 12:00 50 03/05/18 12:00 Mechanical Ventilator 50 03/05/18 11:04 50 03/05/18 11:00 108 22 129/88 (102) 93 Mechanical Ventilator 03/05/18 10:00 111 22 157/89 (111) 95 Mechanical Ventilator 03/05/18 09:50 50 03/05/18 09:00 113 22 147/106 (120) 97 Mechanical Ventilator 03/05/18 08:00 Mechanical Ventilator 70 03/05/18 08:00 37.5 109 22 153/94 (113) 96 Mechanical Ventilator 03/05/18 08:00 70 Laboratory Results: Last 24 Hours Test 03/05/18 09:40 03/05/18 11:36 03/05/18 12:25 03/05/18 16:23 Bedside Glucose 123 mg/dl 153 mg/dl Test 03/05/18 23:55 03/06/18 04:10 03/06/18 05:32 03/06/18 06:36 Bedside Glucose 148 mg/dl 176 mg/dl White Blood Count 10.94 K/uL Red Blood Count 3.68 M/uL Hemoglobin 11.5 g/dL Hematocrit 34.8 % Mean Corpuscular Volume 94.6 fL Mean Corpuscular Hemoglobin 31.3 pg Mean Corpuscular Hemoglobin Concent 33.0 g/dl Platelet Count 196 K/uL Mean Platelet Volume 9.6 fL Neutrophils (%) (Auto) 79.7 % Lymphocytes (%) (Auto) 11.1 % Monocytes (%) (Auto) 7.4 % Eosinophils (%) (Auto) 0.0 % Basophils (%) (Auto) 0.1 % Neutrophils # (Auto) 8.72 K/uL Lymphocytes # (Auto) 1.21 K/uL Monocytes # (Auto) 0.81 K/uL Eosinophils # (Auto) 0.00 K/uL Basophils # (Auto) 0.01 K/uL RDW Standard Deviation 48.1 fL RDW Coefficient of Variation 13.8 % Immature Granulocyte % (Auto) 1.7 % Immature Granulocyte # (Auto) 0.19 K/uL Sodium Level 130 mmol/L Potassium Level 5.4 mmol/L Chloride Level 95 mmol/L Carbon Dioxide Level 29 mmol/L Anion Gap 6.0 mmol/L Blood Urea Nitrogen 39 mg/dl Creatinine 1.33 mg/dl Est Creatinine Clear Calc Drug Dose 76.2 ml/min Estimated GFR () 70.2 Estimated GFR (Non- 60.6 BUN/Creatinine Ratio 29.6 Random Glucose 190 mg/dl Calcium Level 8.3 mg/dl Phosphorus Level 4.2 mg/dl Magnesium Level 2.5 mg/dl Procalcitonin 0.22 ng/ml Blood Gas Sample Site Art Line Bedside Blood Gas pH (LAB) 7.29 Bedside Blood Gas pCO2 (LAB) 72 mmHg Bedside Blood Gas pO2 (LAB) 94 mmHg Bedside Blood Gas HCO3 (LAB) 35 meq/L Bedside Blood Gas Total CO2 37 mEq/l Bedside Blood Gas Base Excess (LAB) 8.0 meq/L Bedside Blood Gas O2 Saturation 96.0 % [place] Test NA Oxygen Delivery Device Ventilator Bedside Oxygen Rate (breaths/min) 22 Blood Gas Minute Ventilation 7.8 Bedside FiO2 50 % Blood Gas Tidal Volume 350 Blood Gas PEEP 18 Resident Tracking Resident Involvement: Resident Care Provided Care Provided: Adult Hospital Medicine
--- NOTE | 2018-03-06 10:14 | Progress Note ---
Subjective Date of Service: Mar 06, 2018. Subjective Pt evaluation today including: physical exam, chart review, lab review pt seen in followup, remains on vent. sedated, unable to provide ros. afebrile. on mulitple emperic abx. bronch cultures negative to date, afb smear negative, fungal culture negative. blood cultures negative. path pending. afebrile. wbc improving. legionella, mycoplasma, hiv antibodies pending. cxr this am with edema. Problem List Medical Problems: (1) Asthma Status: Chronic (2) Bilateral pneumonia Status: Acute (3) Chest pain, unspecified Status: Acute (4) Chronic back pain Status: Chronic (5) COPD exacerbation Status: Acute (6) Depression Status: Chronic (7) Dyslipidemia Status: Chronic (8) Gastroesophageal reflux disease Status: Chronic (9) Migraine Status: Chronic (10) Pericarditis Status: Acute (11) Pneumonitis Status: Acute (12) Scoliosis Status: Chronic (13) Sleep disorder Status: Chronic Objective Vital Signs Date Time Temp Pulse Resp B/P (MAP) Pulse Ox O2 Delivery O2 Flow Rate FiO2 03/06/18 09:15 Mechanical Ventilator 55 03/06/18 08:04 55 03/06/18 07:08 40 03/06/18 06:00 98 26 146/88 (107) 94 Mechanical Ventilator 60 03/06/18 05:20 50 03/06/18 05:00 103 22 155/80 (105) 92 Mechanical Ventilator 60 03/06/18 04:00 91 Mechanical Ventilator 50 03/06/18 04:00 37.0 100 22 159/92 (114) 96 Mechanical Ventilator 50 03/06/18 04:00 50 03/06/18 03:35 50 03/06/18 03:00 101 22 153/81 (105) 94 Mechanical Ventilator 50 03/06/18 02:05 50 03/06/18 02:00 99 22 150/80 (103) 86 40 03/06/18 01:00 99 23 140/75 (96) 87 Mechanical Ventilator 40 03/06/18 00:00 37.7 103 22 139/92 (108) 89 Mechanical Ventilator 40 03/05/18 23:59 90 Mechanical Ventilator 40 03/05/18 23:59 40 03/05/18 23:00 101 22 143/79 (100) 96 Mechanical Ventilator 40 03/05/18 23:00 50 03/05/18 22:00 104 23 151/99 (116) 94 Mechanical Ventilator 50 03/05/18 21:00 98 22 149/83 (105) 93 Mechanical Ventilator 50 03/05/18 20:00 94 Mechanical Ventilator 50 03/05/18 20:00 37.4 100 21 146/82 (103) 94 Mechanical Ventilator 50 03/05/18 20:00 50 03/05/18 19:00 101 22 158/84 (108) 87 Mechanical Ventilator 50 03/05/18 18:52 40 03/05/18 18:02 40 03/05/18 18:00 101 22 145/83 (103) 90 Mechanical Ventilator 40 140/94 (109) 03/05/18 17:00 102 22 153/85 (107) 91 Mechanical Ventilator 40 03/05/18 16:00 40 03/05/18 16:00 Mechanical Ventilator 40 03/05/18 16:00 37.3 100 22 141/96 (111) 90 Mechanical Ventilator 40 03/05/18 15:20 40 03/05/18 15:00 101 22 147/83 (104) 92 Mechanical Ventilator 40 03/05/18 14:25 50 03/05/18 14:00 101 22 142/102 (115) 93 Mechanical Ventilator 50 03/05/18 13:00 105 21 150/84 (106) 93 Mechanical Ventilator 50 03/05/18 12:00 37.6 104 21 139/93 (108) 95 Mechanical Ventilator 50 03/05/18 12:00 50 03/05/18 12:00 Mechanical Ventilator 50 03/05/18 11:04 50 03/05/18 11:00 108 22 129/88 (102) 93 Mechanical Ventilator Physical Exam General Appearance: WD/WN, no apparent distress Neck: supple Respiratory/Chest: lungs clear, + decreased breath sounds Cardiovascular: regular rate, rhythm, no edema Abdomen: soft, + distended Extremities: non-tender, no pedal edema Neurologic/Psychiatric: + pertinent finding (sedated on vent) Skin: normal color, no rash Laboratory Results Item Value Date Time Blood Culture - Preliminary Resulted 03/01/182109 Blood NO GROWTH TO DATE. Blood Culture - Preliminary Resulted 03/01/182119 Blood NO GROWTH TO DATE. Gram Stain - Final Complete 03/03/18 1210 Bronchial Washings Left Lingula Acid Fast Stain - Final Resulted 03/03/18 1210 Bronchial Washings Left Lingula Fungal Smear - Final Resulted 03/03/18 1210 Bronchial Washings Left Lingula Last 24 Hours Test 03/05/18 11:36 03/05/18 12:25 03/05/18 16:23 03/05/18 23:55 Bedside Glucose 123 mg/dl 153 mg/dl 148 mg/dl Test 03/06/18 04:10 03/06/18 05:32 03/06/18 06:36 03/06/18 09:20 White Blood Count 10.94 K/uL Red Blood Count 3.68 M/uL Hemoglobin 11.5 g/dL Hematocrit 34.8 % Mean Corpuscular Volume 94.6 fL Mean Corpuscular Hemoglobin 31.3 pg Mean Corpuscular Hemoglobin Concent 33.0 g/dl Platelet Count 196 K/uL Mean Platelet Volume 9.6 fL Neutrophils (%) (Auto) 79.7 % Lymphocytes (%) (Auto) 11.1 % Monocytes (%) (Auto) 7.4 % Eosinophils (%) (Auto) 0.0 % Basophils (%) (Auto) 0.1 % Neutrophils # (Auto) 8.72 K/uL Lymphocytes # (Auto) 1.21 K/uL Monocytes # (Auto) 0.81 K/uL Eosinophils # (Auto) 0.00 K/uL Basophils # (Auto) 0.01 K/uL RDW Standard Deviation 48.1 fL RDW Coefficient of Variation 13.8 % Immature Granulocyte % (Auto) 1.7 % Immature Granulocyte # (Auto) 0.19 K/uL Sodium Level 130 mmol/L Potassium Level 5.4 mmol/L Chloride Level 95 mmol/L Carbon Dioxide Level 29 mmol/L Anion Gap 6.0 mmol/L Blood Urea Nitrogen 39 mg/dl Creatinine 1.33 mg/dl Est Creatinine Clear Calc Drug Dose 76.2 ml/min Estimated GFR () 70.2 Estimated GFR (Non- 60.6 BUN/Creatinine Ratio 29.6 Random Glucose 190 mg/dl Calcium Level 8.3 mg/dl Phosphorus Level 4.2 mg/dl Magnesium Level 2.5 mg/dl Procalcitonin 0.22 ng/ml Blood Gas Sample Site Art Line Bedside Blood Gas pH (LAB) 7.29 Bedside Blood Gas pCO2 (LAB) 72 mmHg Bedside Blood Gas pO2 (LAB) 94 mmHg Bedside Blood Gas HCO3 (LAB) 35 meq/L Bedside Blood Gas Total CO2 37 mEq/l Bedside Blood Gas Base Excess (LAB) 8.0 meq/L Bedside Blood Gas O2 Saturation 96.0 % [place] Test NA Oxygen Delivery Device Ventilator Bedside Oxygen Rate (breaths/min) 22 Blood Gas Minute Ventilation 7.8 Bedside FiO2 50 % Blood Gas Tidal Volume 350 Blood Gas PEEP 18 Bedside Glucose 176 mg/dl 130 mg/dl Assessment and Plan (1) COPD exacerbation Assessment & Plan: continue abx for now, follow cultures, negative to date. suspect c. albicans from sputum is oral colonization
[2018-03-06] MEDS ORDERED: FUROSEMIDE INJ 40 MG in SYRINGE 0 ML IV ONE (11:45)
[2018-03-06] MEDS ORDERED: LEVALBUTEROL 1.25MG/0.5ML NEB INH SCH (12:00)
[2018-03-06] MEDS ORDERED: IPRATROPIUM BROMIDE NEB SOLN 0.02% 2.5 ML VIAL INH SCH (12:00)
--- NOTE | 2018-03-06 12:02 | Pharmacy Progress Note ---
Glycemic Control Progress Note Date of Service Mar 06, 2018. Scope Glycemic Pharmacist consulted for glycemic control to write orders per [facility] inpatient glycemic control protocol. Objective Accuchecks BSG (last 24hrs): Test 03/05/18 16:23 03/05/18 23:55 03/06/18 04:10 03/06/18 06:36 Bedside Glucose 153 mg/dl (70-99) 148 mg/dl (70-99) 176 mg/dl (70-99) Random Glucose 190 mg/dl (70-99) Test 03/06/18 09:20 Bedside Glucose 130 mg/dl (70-99) Recent Pertinent Medications The patient is currently receiving: * Basal insulin: Lantus 10 units SC x1 03/05 * Correctional Insulin: Novolog Correction per scale ACHS Goal Range: Low 120 mg/dL - High 160 mg/dL Correction Factor: 25 mg/dL/unit * Prandial insulin: Per carb ratio of 1 unit per 8 grams CHO consumed Outpatient Anti-Diabetic Meds None Assessment & Plan ASSESSMENT: * 52 yo M on no diabetes medications at home with A1c suggestive of possible T2DM currently mechanically ventillated in ICU 2nd acute on chronic respiratory failure * BSG's ranging 123-176 mg/dL over the last 24 hours - good control for ICU patient * However, possible increases in BSG's today 2nd switch from Peptamen VHP to Novasource renal (~2x CHO per mL) and increase in steroid dose * Will very slightly increase Lantus dose * Will decrease goal range of Novolog slightly * Will increase Novolog checks to q4h (provides more consistent coverage of insulin for continuous tubefeeds) PLAN FOR INPATIENT GLYCEMIC CONTROL: * Basal insulin: Lantus 14 units SQ x1 * Bolus insulin * NovoLog per scale q4h * Goal Range: Low 110 mg/dL - High 150 mg/dL * Correction Factor: 25 mg/dL/unit * Nutritional / Prandial insulin per carb ratio of 1 unit per 8 grams CHO consumed RECOMMENDATIONS FOR DISCHARGE: * Follow-up as outpatient for A1c of 6.5% (suggestive of T2DM) * Please note that the plan above was derived based on current level of insulin resistance and hospital stress. These recommendations are appropriate for inpatient admission only. Plan of care upon discharge will need to be reassessed to avoid potential outpatient hypo/hyperglycemia. Thank you.
[2018-03-06] MEDS: MAGNESIUM HYDROXIDE SUSP 30 ML UDC PO SCH ×2 (12:35→20:31)
[2018-03-06] MEDS: NOVASOURCE RENAL 1000ML BAG OG PRN (12:35)
[2018-03-06] MEDS: SENNA 8.8 MG/5 ML UDP PO SCH ×2 (12:36→20:31)
[2018-03-06] MEDS: PIPERACILL/TAZOBAC IV 4.5 GM in DEXTROSE 5% 50ML 50 ML IV SCH ×2 (12:36→19:38)
[2018-03-06] MEDS ORDERED: CASPOFUNGIN INJ 70 MG in SODIUM CHLORIDE 0.9% 250ML 250 ML IV ONE (13:00)
[2018-03-06] MEDS ORDERED: VANCOMYCIN TROUGH ONE (13:30)
[2018-03-06] MEDS: DOCUSATE SODIUM 100 MG/10 ML UDC PO SCH ×2 (13:39→20:30)
--- NOTE | 2018-03-06 17:37 | Progress Note ---
Medicine Progress Note Date & Time of Visit: Mar 06, 2018 at 17:24. Subjective Pt was seen and examined Sedated and intubated on vent support Pt desaturated on the vent today Objective Last 8 Hrs Date Time Temp Pulse Resp B/P (MAP) Pulse Ox O2 Delivery O2 Flow Rate FiO2 03/06/18 17:00 120 26 148/86 (106) 90 Mechanical Ventilator 40 03/06/18 16:43 50 03/06/18 16:00 40 03/06/18 16:00 36.8 124 28 155/88 (110) 93 Mechanical Ventilator 40 03/06/18 16:00 Mechanical Ventilator 40 03/06/18 15:16 50 03/06/18 15:10 50 03/06/18 15:00 125 26 140/83 (102) 94 Mechanical Ventilator 55 03/06/18 14:00 127 26 147/79 (101) 98 Mechanical Ventilator 55 03/06/18 13:00 36.6 102 26 173/80 (111) 86 Mechanical Ventilator 40 03/06/18 12:55 40 03/06/18 12:00 40 03/06/18 12:00 Mechanical Ventilator 40 03/06/18 12:00 83 26 121/65 (83) 95 Mechanical Ventilator 40 03/06/18 11:05 40 03/06/18 11:00 72 26 137/65 (89) 95 03/06/18 10:00 76 26 130/78 (95) 95 Mechanical Ventilator 55 03/06/18 09:55 50 Physical Exam: General- No acute distress Head- atraumatic Eyes- PERRL, EOMI ENT- Intubated Neck- supple, no JVD Lungs- clear to auscultation Heart- regular rhythm; no murmur Abdomen- distended Extremities- no calf tenderness Neuro- alert, oriented x 3; PERRL Skin- warm & dry Laboratory Results: Last 24 Hours Test 03/05/18 23:55 03/06/18 04:10 03/06/18 05:32 03/06/18 06:36 Bedside Glucose 148 mg/dl 176 mg/dl White Blood Count 10.94 K/uL Red Blood Count 3.68 M/uL Hemoglobin 11.5 g/dL Hematocrit 34.8 % Mean Corpuscular Volume 94.6 fL Mean Corpuscular Hemoglobin 31.3 pg Mean Corpuscular Hemoglobin Concent 33.0 g/dl Platelet Count 196 K/uL Mean Platelet Volume 9.6 fL Neutrophils (%) (Auto) 79.7 % Lymphocytes (%) (Auto) 11.1 % Monocytes (%) (Auto) 7.4 % Eosinophils (%) (Auto) 0.0 % Basophils (%) (Auto) 0.1 % Neutrophils # (Auto) 8.72 K/uL Lymphocytes # (Auto) 1.21 K/uL Monocytes # (Auto) 0.81 K/uL Eosinophils # (Auto) 0.00 K/uL Basophils # (Auto) 0.01 K/uL RDW Standard Deviation 48.1 fL RDW Coefficient of Variation 13.8 % Immature Granulocyte % (Auto) 1.7 % Immature Granulocyte # (Auto) 0.19 K/uL Sodium Level 130 mmol/L Potassium Level 5.4 mmol/L Chloride Level 95 mmol/L Carbon Dioxide Level 29 mmol/L Anion Gap 6.0 mmol/L Blood Urea Nitrogen 39 mg/dl Creatinine 1.33 mg/dl Est Creatinine Clear Calc Drug Dose 76.2 ml/min Estimated GFR () 70.2 Estimated GFR (Non- 60.6 BUN/Creatinine Ratio 29.6 Random Glucose 190 mg/dl Calcium Level 8.3 mg/dl Phosphorus Level 4.2 mg/dl Magnesium Level 2.5 mg/dl Procalcitonin 0.22 ng/ml Blood Gas Sample Site Art Line Bedside Blood Gas pH (LAB) 7.29 Bedside Blood Gas pCO2 (LAB) 72 mmHg Bedside Blood Gas pO2 (LAB) 94 mmHg Bedside Blood Gas HCO3 (LAB) 35 meq/L Bedside Blood Gas Total CO2 37 mEq/l Bedside Blood Gas Base Excess (LAB) 8.0 meq/L Bedside Blood Gas O2 Saturation 96.0 % [place] Test NA Oxygen Delivery Device Ventilator Bedside Oxygen Rate (breaths/min) 22 Blood Gas Minute Ventilation 7.8 Bedside FiO2 50 % Blood Gas Tidal Volume 350 Blood Gas PEEP 18 Test 03/06/18 09:20 03/06/18 12:33 03/06/18 15:30 03/06/18 16:02 Bedside Glucose 130 mg/dl 184 mg/dl 191 mg/dl Blood Gas Sample Site Art Line Bedside Blood Gas pH (LAB) 7.31 Bedside Blood Gas pCO2 (LAB) 60 mmHg Bedside Blood Gas pO2 (LAB) 74 mmHg Bedside Blood Gas HCO3 (LAB) 30 meq/L Bedside Blood Gas Total CO2 32 mEq/l Bedside Blood Gas Base Excess (LAB) 4.0 meq/L Bedside Blood Gas O2 Saturation 93.0 % [place] Test NA Oxygen Delivery Device Ventilator Bedside Oxygen Rate (breaths/min) 26 Blood Gas Minute Ventilation 9.1 Bedside FiO2 50 % Blood Gas Tidal Volume 350 Blood Gas PEEP 16 Assessment & Plan ACUTE ON CHRONIC HYPOXIC RESPIRATORY FAILURE Possible related to hypersensitivity Pneumonitis CXR showed findings suggest asymmetric pulmonary edema or multifocal pneumonia. Was starting on BIPAP in the ICU Received solumedrol in the ER Steroid changed to prednisone 30mg BID Procalcitonin wayne WBC elevated Continue Zosyn IV and Bactrim adding Continue oxygen supplement and neb treatment Continue monitor in tele Pulmonology on board 03/06 Sedated and intubated on vent support Neuro muscular blockage off Possible ARDS vs pneumocystis carinii pneumonia S/p bronch showed diffuse alveolar hemorrhage CXR showed pulmonary edema slightly improved from the prior study Bronchial washings sent for culture and Gram stain, cytology, fungal elements, and AFB stain and culture and silver stain. Bronchial washing culture showed no growth blood cx no growth WBC trending down Sputum cx grew karla (Colonization) Continue abx with zosyn, bactrim, zithromax Vanco D/C Solumedrol increased to TID Continue vent management as per cadet deck On High PEEP of 16 ID, pulmonology and Travel Writer on board PULMONARY EDEMA ON CXR CXR today showed pulmonary edema slightly improved from the prior study Lasix given today ECHO showed * Normal LV chamber size and wall thickness. * Normal LV systolic function, EF 65-70%. * No segmental left ventricular wall motion abnormalities are noted. * Grade I diastolic dysfunction. * Poorly visualized RV. * No significant valvular pathology. Acute Kidney failure Creatine increased from 0.8 to 1.33 today Received lasix 40mg x1 today Monitor BMP Hyperkalemia K 5.4 Monitor BMP SLEEP APNEA Continue CPAP / BiPAP. GERD Continue ranitidine. TOBACCO USE Counselling on smoking cessation VTE PROPHYLAXIS SQ enoxaparin. Ambulate. RESUSCITATION STATUS Full code. DISPOSITION Continue monitor in the ICU . Current Inpatient Medications: Current Inpatient Medications Medications (Trade) Dose Ordered Sig/Nemo Route Start Time Stop Time Status Last Admin Dose Admin Gabapentin (Neurontin Cap) 100 mg BID PO 03/02/18 09:00 04/01/18 08:59 03/06/18 09:40 100 MG Paroxetine HCl (pAXil TAB) 40 mg DAILY PO 03/02/18 09:00 04/01/18 08:59 03/06/18 09:40 40 MG Pravastatin Sodium (Pravachol Tab) 40 mg HS PO 03/02/18 21:00 04/01/18 20:59 03/05/18 21:05 40 MG Ranitidine HCl (zANTac TAB) 300 mg BID PO 03/02/18 09:00 04/01/18 08:59 Future Hold 03/02/18 20:40 300 MG Levalbuterol (Xopenex 0.63 Mg/ 3 Ml Neb) 0.63 mg Q4H PRN INH 03/01/18 23:15 03/31/18 23:14 03/02/18 01:58 0.63 MG Miscellaneous Information (Consult) 1 ea UD PRN N/A 03/01/18 23:15 03/31/18 23:14 Acetaminophen (Tylenol Tab) 1,000 mg Q8H PRN PO 03/01/18 23:45 03/31/18 23:44 Lorazepam (Ativan Inj) 1 mg Q6H PRN IV 03/02/18 09:45 04/01/18 09:44 03/02/18 20:52 1 MG Glucose (Glucose 40% Gel) 15-30 GRAMS 15 GRAMS... UD PRN PO 03/02/18 12:45 04/01/18 12:44 Glucose (Glucose Chew Tab) 4-8 Tablets 4 Tabl... UD PRN PO 03/02/18 12:45 04/01/18 12:44 Dextrose (Dextrose 50% 50ML Syringe) 25-50ML 25ML FOR ... UD PRN IV 03/02/18 12:45 04/01/18 12:44 Glucagon (Glucagon Inj) 1 mg UD PRN IM 03/02/18 12:45 04/01/18 12:44 Carbohydrates (Carbohydrates For Hypoglycemia) 15-30 GRAMS 15 grams if BSG 54-69... UD PRN PO 03/02/18 12:45 04/01/18 12:44 Miscellaneous Information (Consult Glycemic Management Pharmacy) 1 ea UD PRN N/A 03/02/18 12:45 04/01/18 12:44 Prednisone (PredniSONE TAB) 30 mg BID PO 03/02/18 21:00 04/01/18 20:59 Future Hold 03/02/18 20:40 30 MG Morphine Sulfate (MoRPHine SULFATE INJ) 2 mg Q4H PRN IV 03/02/18 23:15 03/16/18 23:14 03/02/18 23:47 2 MG Ondansetron HCl (Zofran Inj) 4 mg Q6H PRN IV 03/02/18 23:45 04/01/18 23:44 Fentanyl Citrate 250 ml @ 0 mls/hr Q0M PRN IV 03/03/18 02:59 03/17/18 02:58 03/06/18 08:26 40 MLS/HR Midazolam HCl 250 ml @ 0 mls/hr Q0M PRN IV 03/03/18 02:59 04/02/18 02:58 03/06/18 05:51 20 MLS/HR Pantoprazole Sodium 40 mg/ Syringe 10 ml @ 5 mls/min DAILY@1100 IV 03/03/18 03:30 04/02/18 03:29 03/06/18 09:40 5 MLS/MIN Ipratropium [place]arton (Atrovent Hfa Inhaler) 4 puffs QIDR INH 03/03/18 08:00 04/02/18 07:59 03/06/18 15:15 4 PUFFS Levalbuterol (Xopenex Hfa Inhaler) 4 puffs QIDR INH 03/03/18 08:00 04/02/18 07:59 03/06/18 15:15 4 PUFFS Heparin Sodium (Porcine) (Heparin Sq 5000 Unit/0.5ml) 5,000 unit Q8H SQ 03/04/18 09:00 04/03/18 08:59 03/06/18 09:40 5,000 UNIT Heparin Sodium (Porcine) (Heparin 10 Unit/ ml 5 ml Flush) 5 ml PRN PRN FLUSH 03/05/18 23:45 04/04/18 23:44 Insulin Aspart (novoLOG ASPART) SLIDING SCALE G... Q4 SC 03/06/18 09:00 04/05/18 08:59 03/06/18 16:05 4 UNITS Enteral Nutritional Formula (Novasource Renal) 1,000 ml UD PRN OG 03/06/18 08:45 04/05/18 08:44 03/06/18 12:35 1,000 ML Methylprednisolone Sodium Succinate 40 mg/Syringe 0.64 ml @ 1.5 mls/min Q8 IV 03/06/18 15:00 04/05/18 14:59 03/06/18 15:41 1.5 MLS/MIN Piperacillin Sod/ Tazobactam Sod 4.5 gm/Dextrose 70 ml @ 17.5 mls/hr Q8H IV 03/06/18 12:00 03/09/18 13:59 03/06/18 12:36 17.5 MLS/HR Trimethoprim/ Sulfamethoxazole 368 mg/Dextrose 373 ml @ 250 mls/hr Q6H IV 03/06/18 15:00 03/11/18 02:59 03/06/18 15:41 250 MLS/HR Senna (Senokot Syrup) 8.8 mg BID PO 03/06/18 12:00 04/05/18 11:59 03/06/18 12:36 8.8 MG Magnesium Hydroxide (Milk Of Magnesia Susp) 30 ml BID PO 03/06/18 12:00 04/05/18 11:59 03/06/18 12:35 30 ML Docusate Sodium (coLACE SYRUP) 100 mg BID PO 03/06/18 12:00 04/05/18 11:59 03/06/18 13:39 100 MG Caspofungin 50 mg/ Sodium Chloride 260 ml @ 250 mls/hr DAILY@0900 IV 03/07/18 09:00 03/12/18 10:03 Aspirin (Aspirin Chew) 324 mg DAILY PO 03/07/18 09:00 04/05/18 08:59
[2018-03-06] MEDS: PRAVASTATIN SOD 40 MG TAB PO SCH (20:31)
[2018-03-07] VITALS (19 sets, daily range): BP systolic 125–175; BP diastolic 65–98; PULSE 96–122; TEMP 36.9–37.3; O2SAT 85–96
[2018-03-07] MEDS: HEPARIN SOD 5000 UNIT/0.5 ML CARP SQ SCH ×3 (00:45→16:20)
[2018-03-07] MEDS: MIDAZOLAM 125MG/250ML D5W 250 ML IV PRN ×2 (00:46→16:41)
[2018-03-07] MEDS: DEXTROSE 5% IV SCH ×4 (02:55→20:56)
[2018-03-07] MEDS: TRIMETH IV SCH ×4 (02:55→20:56)
[2018-03-07] MEDS: SULFA IV SCH ×4 (02:55→20:56)
[2018-03-07] MEDS ORDERED: INSULIN IV INFUSION PROTOCOL SCH (03:53)
[2018-03-07] MEDS ORDERED: MODERATE STRESS LEVEL ONE (04:00)
[2018-03-07] MEDS ORDERED: INSULIN PROTOCOL GOAL RANGE ONE (04:00)
[2018-03-07] MEDS: PIPERACILL/TAZOBAC IV 4.5 GM in DEXTROSE 5% 50ML 50 ML IV SCH ×3 (04:02→20:42)
[2018-03-07] MEDS ORDERED: NovoLIN R BOLUS FROM BAG IV ONE (04:15)
[2018-03-07] MEDS ORDERED: INSULIN REGULAR 250 UNITS in SODIUM CHLORIDE 0.9% 250ML 250 ML IV SCH (04:15)
[2018-03-07 04:48] LABS: BASO % 0.1 %; BASO ABS # 0.02 K/uL (0-0.2); HEMATOCRIT 32.7 % (42-52); HEMOGLOBIN 10.9 g/dL (14.0-18.0); IG# 0.26 K/uL (0.00-0.02); LYMPH % 9.2 %; MEAN CORPUSCULAR HEMOGLOBIN 31.3 pg (25-34); MEAN CORPUSCULAR HGB CONC 33.3 g/dl (32-36); MEAN PLATELET VOLUME 9.7 fL (7.4-10.4); MONO % 6.8 %; MONO ABS # 0.96 K/uL (0.11-0.59); NEUT % 82.1 %; NEUT ABS # 11.53 K/uL (1.4-6.5); NUCLEATED RED BLOOD CELL ABS 0.03 K/uL (0-0); PLATELET COUNT 198 K/uL (130-400); RED CELL DISTRIBUTION WIDTH CV 13.4 % (11.5-14.5); RED CELL DISTRIBUTION WIDTH SD 46.3 fL (36.4-46.3); WHITE BLOOD COUNT 14.07 K/uL (4.8-10.8)
[2018-03-07 05:13] LABS: CALCIUM 8.4 mg/dl (8.5-10.1); CREATININE 1.17 mg/dl (0.60-1.40); PHOSPHORUS 2.4 mg/dl (2.5-4.9); POTASSIUM 5.3 mmol/L (3.5-5.1)
[2018-03-07] MEDS: FENTANYL 1250MCG/250ML NSS 250 ML IV PRN ×2 (05:44→16:42)
[2018-03-07] MEDS: METHYLPREDNISOLONE IV 40 MG in SYRINGE 0 ML IV SCH ×3 (05:44→22:00)
--- NOTE | 2018-03-07 07:05 | DIAGNOSTIC IMAGING REPORT ---
CHEST ONE VIEW PORTABLE HISTORY: 52 years-old Male hypersensitivity pnemonitis, pnemonia, on vent acute respiratory failure COMPARISON: Chest radiograph 03/06/2018 TECHNIQUE: Portable AP view of the chest FINDINGS: Endotracheal tube overlies the midline terminating 2.2 cm superior to the level the raad. Enteric tube courses below the diaphragm with distal tip terminating within the region of the mid gastric lumen. Unchanged right internal jugular central venous catheter. Cardiac silhouette is again enlarged, unchanged. Pulmonary vascular congestion with persistent bilateral mixed interstitial and alveolar opacities, mildly worsened throughout the left lung. Small left pleural effusion with probable trace right pleural effusion. Bibasilar opacities are unchanged. Sigmoidal scoliosis of the spine with unchanged multiple bilateral chronic rib deformities. IMPRESSION: 1. Stable positioning of life support lines and tubes. 2. Cardiomegaly with persistent mixed interstitial and alveolar opacities, slightly progressed throughout the left lung. 3. Small left and trace right pleural effusions. The above report was generated using voice recognition software. It may contain grammatical, syntax or spelling errors. Electronically signed by: Bonifacio Fishman M.D. 03/07/2018 7:03 AM Dictated Date/Time: 03/07/2018 7:01 AM
[2018-03-07] MEDS ORDERED: INSULIN GLARGINE SOLOSTAR 100 UNITS/ML 3 ML PEN SC ONE ×3 (07:15→13:45)
[2018-03-07] MEDS: IPRATROPIUM BROMIDE HFA INHALER INH SCH ×4 (07:33→21:16)
[2018-03-07] MEDS: LEValbuterol HFA 15GM INHALER INH SCH ×4 (07:33→21:16)
[2018-03-07] MEDS: INSULIN ASPART 100 UNITS/ML 3 ML PEN SC SCH ×4 (07:47→20:47)
[2018-03-07] MEDS: DOCUSATE SODIUM 100 MG/10 ML UDC PO SCH ×2 (07:50→20:49)
[2018-03-07] MEDS: MAGNESIUM HYDROXIDE SUSP 30 ML UDC PO SCH ×2 (07:51→20:51)
[2018-03-07] MEDS: SENNA 8.8 MG/5 ML UDP PO SCH ×2 (07:51→20:48)
[2018-03-07] MEDS: GABAPENTIN 100 MG CAP PO SCH ×2 (07:51→20:50)
[2018-03-07] MEDS: PAROXETINE 20 MG TAB PO SCH (07:51)
[2018-03-07] MEDS ORDERED: INSULIN ASPART 100 UNITS/ML 3 ML PEN SC SCH (08:00)
[2018-03-07] MEDS ORDERED: FUROSEMIDE INJ 40 MG in SYRINGE 0 ML IV STA (08:11)
[2018-03-07] MEDS: ASPIRIN 81 MG CHEW PO SCH (08:29)
[2018-03-07] MEDS ORDERED: CASPOFUNGIN INJ 50 MG in SODIUM CHLORIDE 0.9% 250ML 250 ML IV SCH (09:00)
[2018-03-07] MEDS: PANTOprazole INJ 40 MG in SYRINGE 0 ML IV SCH (10:16)
--- NOTE | 2018-03-07 10:19 | Progress Note ---
Internal Med Progress Note Date of Service: Mar 07, 2018. Provider Documentation: SUBJECTIVE: Continues to be on mechanical ventilation and remains intubated. Heart rate 105 bpm, blood pressure 156/82 via arterial line. Patient is sedated. Has feeding tube, Has willams OBJECTIVE: General- as above Head- atraumatic Neck- supple, no JVD Lungs- on mechanical ventilation Heart- regular rhythm Abdomen- soft, bowel sounds present Extremities- lower extremity pulses intact, feet are cold to the touch Neuro- sedated ASSESSMENT & PLAN: 52-year-old male with a history of asthma & COPD who was admitted to the ICU for acute on chronic respiratory failure with noted hypoxia and respiratory distress. He was unable to tolerate BiPAP and has been maintained on 5L of oxygen via oxymask. 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 Resp: Hypersensitivity Pneumonitis/ARDS vs pneumonia -ARDS protocol ventilation - methylprednisone - xopenex -karla albicans in sputum from 03/04/18, on caspofungin treatment -preliminary BAL cultures negative -urinary legionella negative, awaiting mycoplasma antibodies -given LDH elevated at 538, awaiting silver stain for pneumocystis carinii, and on bactrim prophylaxis Neuro: Sedation - sedated with Versed Pain - continue fentanyl prn for pain Chronic Pain - Continue Gabapentin Depression - Continue Paxil Cardiovascular: -aspirin 324 mg daily -ECHO showed * Normal LV chamber size and wall thickness. * Normal LV systolic function, EF 65-70%. * No segmental left ventricular wall motion abnormalities are noted. * Grade I diastolic dysfunction. * Poorly visualized RV. * No significant valvular pathology. Fluids/Renal/Electrolytes -Acute Kidney injury improving as creatinine 1.33 to 1.17 and MAHAD could antonio from vancomycin and patient is no longer on vancomycin -has received Lasix to prevent fluid overload -high normal potassium vs hyperkalemia. serum potassium downtrended from 5.4 to 5.3 -serum phosphate downtrended from 4.2 to 2.4, IV phosphate supplement ordered ID: - currently on Zosyn IV, bactrim IV and casopofungin IV - was previously on vancomycin and azithromycin -karla albicans in sputum from 03/04/18 - Blood Cultures 03/01/18 are negative - HIV results pending GI/Nutrition: -enteral feeds -GERD/GI prophylaxis: Pantoprazole 40mg IV daily -bowel regimen: docusate, senna and milk of mag Heme: -generally stable Endocrine: - HbA1c = 6.5% - Accu-Checks per protocol, Insulin Access: Right triple lumen IJ and right radial A line DVT Prophylaxis: 5,000 units heparin q8h Code status: FULL DISPOSITION Continue monitor in the ICU Vital Signs: Date Time Temp Pulse Resp B/P (MAP) Pulse Ox O2 Delivery O2 Flow Rate FiO2 03/07/18 08:13 30 03/07/18 08:00 30 03/07/18 08:00 96 Mechanical Ventilator 30 03/07/18 08:00 37.2 100 27 141/86 (104) 96 Mechanical Ventilator 30 153/70 (97) 03/07/18 07:34 35 03/07/18 06:22 30 03/07/18 06:00 99 25 133/85 (108) 85 155/79 03/07/18 05:24 30 03/07/18 05:00 101 25 89 03/07/18 04:00 36.9 03/07/18 04:00 91 Mechanical Ventilator 40 03/07/18 04:00 99 25 153/79 (89) 91 150/78 03/07/18 04:00 40 03/07/18 03:00 99 26 144/71 (94) 95 03/07/18 02:18 40 03/07/18 02:00 102 26 142/80 (88) 91 140/75 03/07/18 01:00 103 26 146/81 (103) 89 03/07/18 00:01 36.9 03/07/18 00:00 105 25 151/98 (103) 91 144/87 (100) 03/06/18 23:59 91 Mechanical Ventilator 40 03/06/18 23:59 40 03/06/18 23:13 40 03/06/18 23:00 105 24 141/73 (99) 91 03/06/18 22:00 105 26 147/90 (103) 94 147/79 03/06/18 21:00 108 26 148/78 (101) 90 03/06/18 20:00 114 25 147/90 (107) 92 145/84 03/06/18 20:00 37.1 03/06/18 20:00 92 Mechanical Ventilator 40 03/06/18 20:00 40 03/06/18 19:59 40 03/06/18 19:00 115 25 153/85 (106) 92 03/06/18 17:00 120 26 148/86 (106) 90 Mechanical Ventilator 40 03/06/18 16:43 50 03/06/18 16:00 40 03/06/18 16:00 36.8 124 28 155/88 (110) 93 Mechanical Ventilator 40 03/06/18 16:00 Mechanical Ventilator 40 03/06/18 15:16 50 03/06/18 15:10 50 03/06/18 15:00 125 26 140/83 (102) 94 Mechanical Ventilator 55 03/06/18 14:00 127 26 147/79 (101) 98 Mechanical Ventilator 55 03/06/18 13:00 36.6 102 26 173/80 (111) 86 Mechanical Ventilator 40 03/06/18 12:55 40 03/06/18 12:00 40 03/06/18 12:00 Mechanical Ventilator 40 03/06/18 12:00 83 26 121/65 (83) 95 Mechanical Ventilator 40 03/06/18 11:05 40 03/06/18 11:00 72 26 137/65 (89) 95 Lab Results: Results Past 24 Hours Test 03/06/18 12:33 03/06/18 15:30 03/06/18 16:02 03/06/18 19:34 Range/Units Bedside Glucose 184 191 184 70-99 mg/dl Blood Gas Sample Site Art Line Bedside Blood Gas pH (LAB) 7.31 7.35-7.45 Bedside Blood Gas pCO2 (LAB) 60 35-46 mmHg Bedside Blood Gas pO2 (LAB) 74 80-95 mmHg Bedside Blood Gas HCO3 (LAB) 30 19-24 meq/L Bedside Blood Gas Total CO2 32 24-31 mEq/l Bedside Blood Gas Base Excess (LAB) 4.0 -9-1.8 meq/L Bedside Blood Gas O2 Saturation 93.0 90-95 % [place] Test NA Oxygen Delivery Device Ventilator Bedside Oxygen Rate (breaths/min) 26 Blood Gas Minute Ventilation 9.1 Bedside FiO2 50 % Blood Gas Tidal Volume 350 Blood Gas PEEP 16 Test 03/06/18 23:47 03/07/18 03:38 03/07/18 04:31 03/07/18 05:09 Range/Units Bedside Glucose 188 224 70-99 mg/dl White Blood Count 14.07 4.8-10.8 K/uL Red Blood Count 3.48 4.7-6.1 M/uL Hemoglobin 10.9 14.0-18.0 g/dL Hematocrit 32.7 42-52 % Mean Corpuscular Volume 94.0 80-100 fL Mean Corpuscular Hemoglobin 31.3 25-34 pg Mean Corpuscular Hemoglobin Concent 33.3 32-36 g/dl Platelet Count 198 130-400 K/uL Mean Platelet Volume 9.7 7.4-10.4 fL Neutrophils (%) (Auto) 82.1 % Lymphocytes (%) (Auto) 9.2 % Monocytes (%) (Auto) 6.8 % Eosinophils (%) (Auto) 0.0 % Basophils (%) (Auto) 0.1 % Neutrophils # (Auto) 11.53 1.4-6.5 K/uL Lymphocytes # (Auto) 1.30 1.2-3.4 K/uL Monocytes # (Auto) 0.96 0.11-0.59 K/uL Eosinophils # (Auto) 0.00 0-0.5 K/uL Basophils # (Auto) 0.02 0-0.2 K/uL RDW Standard Deviation 46.3 36.4-46.3 fL RDW Coefficient of Variation 13.4 11.5-14.5 % Immature Granulocyte % (Auto) 1.8 % Immature Granulocyte # (Auto) 0.26 0.00-0.02 K/uL Nucleated RBC Absolute Count (auto) 0.03 0-0 K/uL Nucleated Red Blood Cells % 0.2 % Sodium Level 131 136-145 mmol/L Potassium Level 5.3 3.5-5.1 mmol/L Chloride Level 96 98-107 mmol/L Carbon Dioxide Level 32 21-32 mmol/L Anion Gap 3.0 3-11 mmol/L Blood Urea Nitrogen 37 7-18 mg/dl Creatinine 1.17 0.60-1.40 mg/dl Est Creatinine Clear Calc Drug Dose 87.7 ml/min Estimated GFR () 82.0 Estimated GFR (Non- 70.8 BUN/Creatinine Ratio 31.5 10-20 Random Glucose 214 70-99 mg/dl Calcium Level 8.4 8.5-10.1 mg/dl Phosphorus Level 2.4 2.5-4.9 mg/dl Magnesium Level 2.7 1.8-2.4 mg/dl Chemistry Specimen Hemolysis Blood Gas Sample Site Art Line Bedside Blood Gas pH (LAB) 7.39 7.35-7.45 Bedside Blood Gas pCO2 (LAB) 58 35-46 mmHg Bedside Blood Gas pO2 (LAB) 98 80-95 mmHg Bedside Blood Gas HCO3 (LAB) 35 19-24 meq/L Bedside Blood Gas Total CO2 37 24-31 mEq/l Bedside Blood Gas Base Excess (LAB) 10.0 -9-1.8 meq/L Bedside Blood Gas O2 Saturation 97.0 90-95 % [place] Test NA Oxygen Delivery Device Ventilator Bedside Oxygen Rate (breaths/min) 26 Blood Gas Minute Ventilation 9.8 Bedside FiO2 40 % Blood Gas Tidal Volume 350 Blood Gas PEEP 14 Test 03/07/18 05:28 03/07/18 06:31 03/07/18 07:41 03/07/18 08:54 Range/Units Bedside Glucose 199 164 157 151 70-99 mg/dl Test 03/07/18 10:18 Range/Units Bedside Glucose 163 70-99 mg/dl
[2018-03-07] MEDS ORDERED: SODIUM PHOSPHATE 3 MMOL/1 ML INFUSION IV STA (10:24)
--- NOTE | 2018-03-07 10:26 | Pharmacy Progress Note ---
Glycemic Control Progress Note Date of Service Mar 07, 2018. Scope Glycemic Pharmacist consulted for glycemic control to write orders per [facility] inpatient glycemic control protocol. Objective Accuchecks BSG (last 24hrs): Test 03/06/18 12:33 03/06/18 16:02 03/06/18 19:34 03/06/18 23:47 Bedside Glucose 184 mg/dl (70-99) 191 mg/dl (70-99) 184 mg/dl (70-99) 188 mg/dl (70-99) Test 03/07/18 03:38 03/07/18 04:31 03/07/18 05:28 03/07/18 06:31 Bedside Glucose 224 mg/dl (70-99) 199 mg/dl (70-99) 164 mg/dl (70-99) Random Glucose 214 mg/dl (70-99) Test 03/07/18 07:41 03/07/18 08:54 Bedside Glucose 157 mg/dl (70-99) 151 mg/dl (70-99) Recent Pertinent Medications The patient is currently receiving: * Insulin drip @ 2.6 units/hr Outpatient Anti-Diabetic Meds None Assessment & Plan ASSESSMENT: 03/06/18 * 52 yo M on no diabetes medications at home with A1c suggestive of possible T2DM currently mechanically ventillated in ICU 2nd acute on chronic respiratory failure * BSG's ranging 123-176 mg/dL over the last 24 hours - good control for ICU patient * However, possible increases in BSG's today 2nd switch from Peptamen VHP to Novasource renal (~2x CHO per mL) and increase in steroid dose * Will very slightly increase Lantus dose * Will decrease goal range of Novolog slightly * Will increase Novolog checks to q4h (provides more consistent coverage of insulin for continuous tubefeeds) 03/07/18 * Was started on insulin gtt early this AM for BSG's gradually but consistently trending up yesterday/overnight, peaking at 224 mg/dL. Etiology likely 2nd increased CHO in tubefeeds and increased steroid doses yesterday * No planned changes to tube feeds or steroids today per ICU rounds * Will attempt to transition off insulin drip this AM - running at 2.6 units/hr this AM * Initial transitioning Lantus dose @ 0830 this AM selected as follows: between 1/2 daily dose severe stress and full daily dose for moderate stress (note: this is a 14 unit increase from yesterday) * Additional transition Lantus dose @ 1345 given as drip was still running at 2.0 units/hr (>5 hours after administration of initial Lantus) * OK to also give supplemental Lantus tonight, depending on BSG * Will tighten Novolog parameters, starting at 1600 today (after insulin drip d/ c'd) PLAN FOR INPATIENT GLYCEMIC CONTROL: * Basal insulin: Lantus 28 units SQ x1 (administered @ 0830) and 10 units SQ x1 (ordered @ 1345) * Stop insulin drip at 1600 * Additional Lantus this PM as follows: * 0 units for BSG < 160 mg/dL * 6 units for BSG 160-180 mg/dL * 12 units for BSG > 180 mg/dL * Bolus insulin * NovoLog per scale q4h, starting at 1600 * Goal Range: Low 110 mg/dL - High 150 mg/dL * Correction Factor: 20 mg/dL/unit * Nutritional / Prandial insulin per carb ratio of 1 unit per 6 grams CHO consumed RECOMMENDATIONS FOR DISCHARGE: * Follow-up as outpatient for A1c of 6.5% (suggestive of T2DM) * Please note that the plan above was derived based on current level of insulin resistance and hospital stress. These recommendations are appropriate for inpatient admission only. Plan of care upon discharge will need to be reassessed to avoid potential outpatient hypo/hyperglycemia. Thank you.
--- NOTE | 2018-03-07 10:31 | Critical Care Progress Note ---
Critical Care Progress Note Date of Service Mar 07, 2018. Attending Dr. London Subjective Mr. Winchester remains sedated on a ventilator. Overnight, attempts to decrease his Versed titration resulted in him becoming agitated and fighting his ETT tube. His sugar level was also found to be elevated at 224, and he was subsequently started on an insulin drip. His most recent glucose is 164. Objective GENERAL: Sedated, on mechanical ventilator. Right triple lumen IJ and right arterial line in place. HENT: Normocephalic, atraumatic. RESPIRATORY: Decreased breath sounds bilaterally. CARDIAC: Tachycardic at 103. Normal rhythm. ABDOMEN: Soft, non-distended.. LOWER EXTREMITIES: Calves are equal size bilaterally. SCDs in place. Assessment & Plan Mr. Winchester is a 52-year-old male with a history of asthma & COPD who was admitted to the ICU for acute on chronic respiratory failure with noted hypoxia and respiratory distress. He was unable to tolerate BiPAP. 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 Neuro: Sedation - sedated with Versed at 6mg/hr. MEAGAN -3. Pain - continue fentanyl. Currently at 125 mcg/h Chronic Pain - Continue Gabapentin Depression - Continue Paxil Resp: Hypersensitivity Pneumonitis/ARDS - methylpred - continue 40mg IV TID given desaturations - follow ARDS protocol w/higher PEEP and lower FiO2 - daily CXR to monitor - continue xopenex - procal tomorrow - sputum culture positive for karla -> continue caspofungin (day 214) -> BAL cultures negative - pulmonary consulted - thank you for recs -> Pneumonia - classical vs. atypical -> urinary legionella negative, awaiting mycoplasma antibodies -> continue Bactrim at lower dose - coverage for PJP (given elevated LDH) - ID following CV: - Dyslipidemia -> Continue Statin - Continue home ASA - ECHO showed EF = 65-70% w/grade 1 diastolic dysfunction. No wall motion abnormalities. - EKG with QTc of 423 Fluids/Renal: - Creatinine stable at 1.17 - overall net positive 6.5L -> concentrate medications in fluids,no maintenance IVF -> Additional Lasix 40mg IV today, monitor I/Os. -> aim for overall net negative - follow daily BMP, Mg and phos - nephro following ID: - Remains afebrile - Continue Zosyn IV, bactrim IV and caspofungin IV - d/c zosyn tomorrow AM as he has been treated with 7 days of zosyn - Blood Cultures negative - HIV pending GI/Nutrition: - continue novasource renal tube feeds - management as per nutrition, Currently at 20mls/hr GERD/GI prophylaxis - Pantoprazole 40mg IV daily - continue bowel regimen: -> docusate, senna and milk of mag - Monitor LFTs given initiation of caspofungin, will check on 03/09, along with a lipase Heme: - Hgb stable at 10.9, MCV normal - Plts 198 - decrease CBC to q72h given they have been stable Endocrine: - HbA1c = 6.5% - d/c insulin drip and double daily dose of Lantus to improve sugar control -> expect it worsened due to increased feeds, high dose steroids as well as dextrose in IV medication - blood sugar = 130-224 Access: Right triple lumen IJ and right radial A line DVT Prophylaxis: 5,000 units heparin q8h Code status: FULL Dr. Tamayo was resident physician during care of patient. I separately evaluated patient and did history and exam. I discussed the case with the resident and generally agree with the findings and plan. Continuing to slowly come down and ventilatory requirements, slowly decreasing sedation as well. Patient has finished 7 days of Zosyn, no convincing antimicrobial evidence to continue Zosyn at this time, will discontinue and follow-up procalcitonin, continuing Bactrim for possible P ELLEN as well as caspofungin for possible/probable candidal infection in the setting of severe structural lung disease I have personally spent 40 minutes of critical care time in the direct management of this patient. This is a life/limb threatening event. This includes time spent evaluating patient, direct bedside care, chart review, placing orders, interpretation of diagnostic studies, discussion with consultants, patient, and/or family members regarding treatment decisions, as well as other required patient management activities. This time is exclusive of all separately billable procedures, and teaching time and separate from and in addition to any other critical care service time. Data Medications: Current Inpatient Medications Medications (Trade) Dose Ordered Sig/Nemo Route Start Time Stop Time Status Last Admin Dose Admin Gabapentin (Neurontin Cap) 100 mg BID PO 03/02/18 09:00 04/01/18 08:59 03/06/18 20:31 100 MG Paroxetine HCl (pAXil TAB) 40 mg DAILY PO 03/02/18 09:00 04/01/18 08:59 03/06/18 09:40 40 MG Pravastatin Sodium (Pravachol Tab) 40 mg HS PO 03/02/18 21:00 04/01/18 20:59 03/06/18 20:31 40 MG Ranitidine HCl (zANTac TAB) 300 mg BID PO 03/02/18 09:00 04/01/18 08:59 Future Hold 03/02/18 20:40 300 MG Levalbuterol (Xopenex 0.63 Mg/ 3 Ml Neb) 0.63 mg Q4H PRN INH 03/01/18 23:15 03/31/18 23:14 03/02/18 01:58 0.63 MG Miscellaneous Information (Consult) 1 ea UD PRN N/A 03/01/18 23:15 03/31/18 23:14 Acetaminophen (Tylenol Tab) 1,000 mg Q8H PRN PO 03/01/18 23:45 03/31/18 23:44 Lorazepam (Ativan Inj) 1 mg Q6H PRN IV 03/02/18 09:45 04/01/18 09:44 03/02/18 20:52 1 MG Glucose (Glucose 40% Gel) 15-30 GRAMS 15 GRAMS... UD PRN PO 03/02/18 12:45 04/01/18 12:44 Glucose (Glucose Chew Tab) 4-8 Tablets 4 Tabl... UD PRN PO 03/02/18 12:45 04/01/18 12:44 Dextrose (Dextrose 50% 50ML Syringe) 25-50ML 25ML FOR ... UD PRN IV 03/02/18 12:45 04/01/18 12:44 Glucagon (Glucagon Inj) 1 mg UD PRN IM 03/02/18 12:45 04/01/18 12:44 Carbohydrates (Carbohydrates For Hypoglycemia) 15-30 GRAMS 15 grams if BSG 54-69... UD PRN PO 03/02/18 12:45 04/01/18 12:44 Miscellaneous Information (Consult Glycemic Management Pharmacy) 1 ea UD PRN N/A 03/02/18 12:45 04/01/18 12:44 Prednisone (PredniSONE TAB) 30 mg BID PO 03/02/18 21:00 04/01/18 20:59 Future Hold 03/02/18 20:40 30 MG Morphine Sulfate (MoRPHine SULFATE INJ) 2 mg Q4H PRN IV 03/02/18 23:15 03/16/18 23:14 03/02/18 23:47 2 MG Ondansetron HCl (Zofran Inj) 4 mg Q6H PRN IV 03/02/18 23:45 04/01/18 23:44 Fentanyl Citrate 250 ml @ 0 mls/hr Q0M PRN IV 03/03/18 02:59 03/17/18 02:58 03/07/18 05:44 25 MLS/HR Midazolam HCl 250 ml @ 0 mls/hr Q0M PRN IV 03/03/18 02:59 04/02/18 02:58 03/07/18 00:46 24 MLS/HR Pantoprazole Sodium 40 mg/ Syringe 10 ml @ 5 mls/min DAILY@1100 IV 03/03/18 03:30 04/02/18 03:29 03/06/18 09:40 5 MLS/MIN Ipratropium [place] (Atrovent Hfa Inhaler) 4 puffs QIDR INH 03/03/18 08:00 04/02/18 07:59 03/06/18 19:59 4 PUFFS Levalbuterol (Xopenex Hfa Inhaler) 4 puffs QIDR INH 03/03/18 08:00 04/02/18 07:59 03/06/18 19:59 4 PUFFS Heparin Sodium (Porcine) (Heparin Sq 5000 Unit/0.5ml) 5,000 unit Q8H SQ 03/04/18 09:00 04/03/18 08:59 03/07/18 00:45 5,000 UNIT Heparin Sodium (Porcine) (Heparin 10 Unit/ ml 5 ml Flush) 5 ml PRN PRN FLUSH 03/05/18 23:45 04/04/18 23:44 Insulin Aspart (novoLOG ASPART) SLIDING SCALE G... Q4 SC 03/06/18 09:00 04/05/18 08:59 Future Hold 03/06/18 23:52 4 UNITS Enteral Nutritional Formula (Novasource Renal) 1,000 ml UD PRN OG 03/06/18 08:45 04/05/18 08:44 03/06/18 12:35 1,000 ML Methylprednisolone Sodium Succinate 40 mg/Syringe 0.64 ml @ 1.5 mls/min Q8 IV 03/06/18 15:00 04/05/18 14:59 03/07/18 05:44 1.5 MLS/MIN Piperacillin Sod/ Tazobactam Sod 4.5 gm/Dextrose 70 ml @ 17.5 mls/hr Q8H IV 03/06/18 12:00 03/09/18 13:59 03/07/18 04:02 17.5 MLS/HR Trimethoprim/ Sulfamethoxazole 368 mg/Dextrose 373 ml @ 250 mls/hr Q6H IV 03/06/18 15:00 03/11/18 02:59 03/07/18 02:55 250 MLS/HR Senna (Senokot Syrup) 8.8 mg BID PO 03/06/18 12:00 04/05/18 11:59 03/06/18 20:31 8.8 MG Magnesium Hydroxide (Milk Of Magnesia Susp) 30 ml BID PO 03/06/18 12:00 04/05/18 11:59 03/06/18 20:31 30 ML Docusate Sodium (coLACE SYRUP) 100 mg BID PO 03/06/18 12:00 04/05/18 11:59 03/06/18 20:30 100 MG Caspofungin 50 mg/ Sodium Chloride 260 ml @ 250 mls/hr DAILY@0900 IV 03/07/18 09:00 03/12/18 10:03 Aspirin (Aspirin Chew) 324 mg DAILY PO 03/07/18 09:00 04/05/18 08:59 Insulin Aspart (novoLOG ASPART) SLIDING SCALE PCHS SC 03/07/18 08:00 04/06/18 07:59 Insulin Human Regular 250 units/ Sodium Chloride 252.5 ml @ 0 mls/hr Q24H IV 03/07/18 04:15 04/06/18 04:14 03/07/18 04:29 2.6 MLS/HR Vital Signs: Date Time Temp Pulse Resp B/P (MAP) Pulse Ox O2 Delivery O2 Flow Rate FiO2 03/07/18 06:22 30 03/07/18 06:00 99 25 133/85 (108) 85 155/79 03/07/18 05:24 30 03/07/18 05:00 101 25 89 03/07/18 04:00 36.9 03/07/18 04:00 91 Mechanical Ventilator 40 03/07/18 04:00 99 25 153/79 (89) 91 150/78 03/07/18 04:00 40 03/07/18 03:00 99 26 144/71 (94) 95 03/07/18 02:18 40 03/07/18 02:00 102 26 142/80 (88) 91 140/75 03/07/18 01:00 103 26 146/81 (103) 89 03/07/18 00:01 36.9 03/07/18 00:00 105 25 151/98 (103) 91 144/87 (100) 03/06/18 23:59 91 Mechanical Ventilator 40 03/06/18 23:59 40 03/06/18 23:13 40 03/06/18 23:00 105 24 141/73 (99) 91 03/06/18 22:00 105 26 147/90 (103) 94 147/79 03/06/18 21:00 108 26 148/78 (101) 90 03/06/18 20:00 114 25 147/90 (107) 92 145/84 03/06/18 20:00 37.1 03/06/18 20:00 92 Mechanical Ventilator 40 03/06/18 20:00 40 03/06/18 19:59 40 03/06/18 19:00 115 25 153/85 (106) 92 03/06/18 17:00 120 26 148/86 (106) 90 Mechanical Ventilator 40 03/06/18 16:43 50 03/06/18 16:00 40 03/06/18 16:00 36.8 124 28 155/88 (110) 93 Mechanical Ventilator 40 03/06/18 16:00 Mechanical Ventilator 40 03/06/18 15:16 50 03/06/18 15:10 50 03/06/18 15:00 125 26 140/83 (102) 94 Mechanical Ventilator 55 03/06/18 14:00 127 26 147/79 (101) 98 Mechanical Ventilator 55 03/06/18 13:00 36.6 102 26 173/80 (111) 86 Mechanical Ventilator 40 03/06/18 12:55 40 03/06/18 12:00 40 03/06/18 12:00 Mechanical Ventilator 40 03/06/18 12:00 83 26 121/65 (83) 95 Mechanical Ventilator 40 03/06/18 11:05 40 03/06/18 11:00 72 26 137/65 (89) 95 03/06/18 10:00 76 26 130/78 (95) 95 Mechanical Ventilator 55 03/06/18 09:55 50 03/06/18 09:15 Mechanical Ventilator 55 03/06/18 09:00 90 26 143/70 (94) 92 Mechanical Ventilator 55 03/06/18 08:04 55 03/06/18 08:00 Mechanical Ventilator 55 03/06/18 08:00 37.1 96 26 160/96 (117) 91 Mechanical Ventilator 55 03/06/18 08:00 55 03/06/18 07:08 40 03/06/18 07:00 85 26 137/64 (88) 96 Mechanical Ventilator 60 Laboratory Results: Last 24 Hours Test 03/06/18 09:20 03/06/18 12:33 03/06/18 15:30 03/06/18 16:02 Bedside Glucose 130 mg/dl 184 mg/dl 191 mg/dl Blood Gas Sample Site Art Line Bedside Blood Gas pH (LAB) 7.31 Bedside Blood Gas pCO2 (LAB) 60 mmHg Bedside Blood Gas pO2 (LAB) 74 mmHg Bedside Blood Gas HCO3 (LAB) 30 meq/L Bedside Blood Gas Total CO2 32 mEq/l Bedside Blood Gas Base Excess (LAB) 4.0 meq/L Bedside Blood Gas O2 Saturation 93.0 % [place] Test NA Oxygen Delivery Device Ventilator Bedside Oxygen Rate (breaths/min) 26 Blood Gas Minute Ventilation 9.1 Bedside FiO2 50 % Blood Gas Tidal Volume 350 Blood Gas PEEP 16 Test 03/06/18 19:34 03/06/18 23:47 03/07/18 03:38 03/07/18 04:31 Bedside Glucose 184 mg/dl 188 mg/dl 224 mg/dl White Blood Count 14.07 K/uL Red Blood Count 3.48 M/uL Hemoglobin 10.9 g/dL Hematocrit 32.7 % Mean Corpuscular Volume 94.0 fL Mean Corpuscular Hemoglobin 31.3 pg Mean Corpuscular Hemoglobin Concent 33.3 g/dl Platelet Count 198 K/uL Mean Platelet Volume 9.7 fL Neutrophils (%) (Auto) 82.1 % Lymphocytes (%) (Auto) 9.2 % Monocytes (%) (Auto) 6.8 % Eosinophils (%) (Auto) 0.0 % Basophils (%) (Auto) 0.1 % Neutrophils # (Auto) 11.53 K/uL Lymphocytes # (Auto) 1.30 K/uL Monocytes # (Auto) 0.96 K/uL Eosinophils # (Auto) 0.00 K/uL Basophils # (Auto) 0.02 K/uL RDW Standard Deviation 46.3 fL RDW Coefficient of Variation 13.4 % Immature Granulocyte % (Auto) 1.8 % Immature Granulocyte # (Auto) 0.26 K/uL Nucleated RBC Absolute Count (auto) 0.03 K/uL Nucleated Red Blood Cells % 0.2 % Sodium Level 131 mmol/L Potassium Level 5.3 mmol/L Chloride Level 96 mmol/L Carbon Dioxide Level 32 mmol/L Anion Gap 3.0 mmol/L Blood Urea Nitrogen 37 mg/dl Creatinine 1.17 mg/dl Est Creatinine Clear Calc Drug Dose 87.7 ml/min Estimated GFR () 82.0 Estimated GFR (Non- 70.8 BUN/Creatinine Ratio 31.5 Random Glucose 214 mg/dl Calcium Level 8.4 mg/dl Phosphorus Level 2.4 mg/dl Magnesium Level 2.7 mg/dl Chemistry Specimen Hemolysis Test 03/07/18 05:09 03/07/18 05:28 03/07/18 06:31 Blood Gas Sample Site Art Line Bedside Blood Gas pH (LAB) 7.39 Bedside Blood Gas pCO2 (LAB) 58 mmHg Bedside Blood Gas pO2 (LAB) 98 mmHg Bedside Blood Gas HCO3 (LAB) 35 meq/L Bedside Blood Gas Total CO2 37 mEq/l Bedside Blood Gas Base Excess (LAB) 10.0 meq/L Bedside Blood Gas O2 Saturation 97.0 % [place] Test NA Oxygen Delivery Device Ventilator Bedside Oxygen Rate (breaths/min) 26 Blood Gas Minute Ventilation 9.8 Bedside FiO2 40 % Blood Gas Tidal Volume 350 Blood Gas PEEP 14 Bedside Glucose 199 mg/dl 164 mg/dl Resident Tracking Resident Involvement: Resident Care Provided Care Provided: Adult Hospital Medicine
[2018-03-07] MEDS ORDERED: SODIUM PHOSPHATE INJ 15 MMOL in SODIUM CHLORIDE 0.9% 250ML 250 ML IV SCH (11:30)
[2018-03-07] MEDS ORDERED: INSULIN DRIP STOP ORDER ONE (16:00)
[2018-03-07] MEDS: PRAVASTATIN SOD 40 MG TAB PO SCH (20:51)
[2018-03-08] VITALS (23 sets, daily range): BP systolic 120–190; BP diastolic 56–93; PULSE 77–132; TEMP 37.1–37.3; O2SAT 85–96
[2018-03-08] MEDS ORDERED: INSULIN GLARGINE SOLOSTAR 100 UNITS/ML 3 ML PEN SC ONE
[2018-03-08] MEDS: INSULIN ASPART 100 UNITS/ML 3 ML PEN SC SCH ×6 (00:27→20:00)
[2018-03-08] MEDS: HEPARIN SOD 5000 UNIT/0.5 ML CARP SQ SCH ×3 (00:29→16:30)
[2018-03-08] MEDS: TRIMETH IV SCH ×4 (02:39→21:21)
[2018-03-08] MEDS: SULFA IV SCH ×4 (02:39→21:21)
[2018-03-08] MEDS: DEXTROSE 5% IV SCH ×4 (02:39→21:21)
[2018-03-08] MEDS: FENTANYL 1250MCG/250ML NSS 250 ML IV PRN ×2 (03:19→12:46)
[2018-03-08] MEDS: PIPERACILL/TAZOBAC IV 4.5 GM in DEXTROSE 5% 50ML 50 ML IV SCH ×2 (04:31→11:53)
[2018-03-08 05:15] LABS: CREATININE 1.11 mg/dl (0.60-1.40)
[2018-03-08 05:16] LABS: CALCIUM 8.4 mg/dl (8.5-10.1); POTASSIUM 5.5 mmol/L (3.5-5.1)
[2018-03-08] MEDS: METHYLPREDNISOLONE IV 40 MG in SYRINGE 0 ML IV SCH ×3 (05:56→21:21)
[2018-03-08 06:53] LABS: HEMOGLOBIN A1C 5.9 % (4.5-5.6)
--- NOTE | 2018-03-08 07:07 | DIAGNOSTIC IMAGING REPORT ---
CHEST ONE VIEW PORTABLE CLINICAL HISTORY: hypersensitivity pnemonitis, pnemonia, on vent COMPARISON STUDY: 03/07/2018 FINDINGS: The heart remains enlarged. There is a right internal jugular central venous catheter unchanged in position. There is a nasogastric tube which passes into the stomach. The endotracheal tube is 3.5 cm above the raad. There are diffuse bilateral airspace opacities minimally improved when compared the prior study.. Left rib deformities remain stable. There is a pronounced scoliosis.[ IMPRESSION: 1. Satisfactory positioning of the lines and tubes 2. Stable cardiomegaly. Slight improvement in the nonspecific bilateral airspace opacities. Electronically signed by: Isma London M.D. 03/08/2018 7:06 AM Dictated Date/Time: 03/08/2018 7:02 AM
[2018-03-08] MEDS: LEValbuterol HFA 15GM INHALER INH SCH ×4 (07:30→19:05)
[2018-03-08] MEDS: IPRATROPIUM BROMIDE HFA INHALER INH SCH ×4 (07:30→19:05)
[2018-03-08] MEDS: LORAZEPAM 2 MG/ML 1 ML VIAL IV PRN (07:41)
--- NOTE | 2018-03-08 08:01 | Critical Care Progress Note ---
Critical Care Progress Note Date of Service Mar 08, 2018. ICU Day ICU Day Number: [address] London Subjective Mr. Winchester remains sedated and on a ventilator. Overnight, he was given two separate boluses of fentanyl and versed due to agitation and fighting the ET tube. His ventilator settings remain unchanged from last night and he continues at a PEEP of 10 and FiO2 of 30%. Objective GENERAL: Sedated, on mechanical ventilator. Right triple lumen IJ and right arterial line in place. HENT: Normocephalic, atraumatic. RESPIRATORY: Decreased breath sounds bilaterally. CARDIAC: Tachycardic at 114. Normal rhythm. ABDOMEN: Soft, mildly distended. LOWER EXTREMITIES: Calves are equal size bilaterally. SCDs in place. Assessment & Plan Mr. Winchester is a 52-year-old male with a history of asthma & COPD who was admitted to the ICU for acute on chronic respiratory failure with noted hypoxia and respiratory distress. He was unable to tolerate BiPAP. 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 Neuro: Sedation - sedated with Versed at 6mg/hr. MEAGAN -3/-4. - aim to wean down Versed to 4mg/hr - pt becomes agitated when this is decreased -> start 15mg of oxycodone qid and 15mg of valium qid to help w/weaning versed Pain - continue fentanyl. Currently at 125 mcg/h. Increase as needed. Chronic Pain - Continue Gabapentin Depression - Continue Paxil Resp: Hypersensitivity Pneumonitis/ARDS - methylpred - continue 40mg IV TID given desaturations - Overall seems to be improving from a respiratory standpoint, albeit slowly. Liberalize tidal volumes and begin pressure support. - daily CXR to monitor - continue xopenex - procal 0.06 today - sputum culture positive for karla -> continue caspofungin (day 314) -> BAL cultures negative - pulmonary consulted - thank you for recs -> mycoplasma IgM negative -> continue Bactrim - coverage for PJP (given elevated LDH). Will treat with 14 day course. CV: - Dyslipidemia -> Continue Statin - Continue home ASA - ECHO showed EF = 65-70% w/grade 1 diastolic dysfunction. No wall motion abnormalities. - EKG with QTc of 428 Fluids/Renal: - Creatinine stable at 1.11 - aim for net negative of 1-2L per day -> concentrate medications in fluids,no maintenance IVF -> Additional Lasix 40mg IV today, strict I/Os. - follow daily BMP, Mg and phos -> Na 131, K 5.5, Cl 94 - nephro following ID: - Remains afebrile - treating for suspected PJP and possible candidal infection - Continue bactrim IV and caspofungin IV - Blood Cultures negative - HIV -ve GI/Nutrition: - continue novasource renal tube feeds - management as per nutrition, Currently at 20mls/hr GERD/GI prophylaxis - Pantoprazole 40mg IV daily - continue bowel regimen: -> docusate, senna and milk of mag -> KUB did not show evidence of bowel obstruction -> add methylnaltrexone to aid with bowel motility - LFTs checked today and WNL Heme: - Hgb stable at 10.9, MCV normal - Plts 198 - check bilateral doppler US of LE given 7 days on vent and tachycardia, r/o DVT Endocrine: - HbA1c = 5.9% - Lantus 20 units BID and ISS - blood sugar = 123-157 Access: Right triple lumen IJ, right radial A line and 20G left peripheral IV DVT Prophylaxis: 5,000 units heparin q8h Code status: FULL Dr. Tamayo was resident physician during care of patient. I separately evaluated patient and did history and exam. I discussed the case with the resident and generally agree with the findings and plan. Decreasing sedative requirements, continuing to maintain steroids at current level, his oxygenation has improved. QTc within normal limits. Patient critically ill for acute on chronic hypoxic respiratory failure as well as ARDS , improving. I have personally spent 40 minutes of critical care time in the direct management of this patient. This is a life/limb threatening event. This includes time spent evaluating patient, direct bedside care, chart review, placing orders, interpretation of diagnostic studies, discussion with consultants, patient, and/or family members regarding treatment decisions, as well as other required patient management activities. This time is exclusive of all separately billable procedures, and teaching time and separate from and in addition to any other critical care service time. Data Medications: Current Inpatient Medications Medications (Trade) Dose Ordered Sig/Nemo Route Start Time Stop Time Status Last Admin Dose Admin Gabapentin (Neurontin Cap) 100 mg BID PO 03/02/18 09:00 04/01/18 08:59 03/07/18 20:50 100 MG Paroxetine HCl (pAXil TAB) 40 mg DAILY PO 03/02/18 09:00 04/01/18 08:59 03/07/18 07:51 40 MG Pravastatin Sodium (Pravachol Tab) 40 mg HS PO 03/02/18 21:00 04/01/18 20:59 03/07/18 20:51 40 MG Ranitidine HCl (zANTac TAB) 300 mg BID PO 03/02/18 09:00 04/01/18 08:59 Future Hold 03/02/18 20:40 300 MG Levalbuterol (Xopenex 0.63 Mg/ 3 Ml Neb) 0.63 mg Q4H PRN INH 03/01/18 23:15 03/31/18 23:14 03/02/18 01:58 0.63 MG Miscellaneous Information (Consult) 1 ea UD PRN N/A 03/01/18 23:15 03/31/18 23:14 Acetaminophen (Tylenol Tab) 1,000 mg Q8H PRN PO 03/01/18 23:45 03/31/18 23:44 Lorazepam (Ativan Inj) 1 mg Q6H PRN IV 03/02/18 09:45 04/01/18 09:44 03/08/18 07:41 1 MG Glucose (Glucose 40% Gel) 15-30 GRAMS 15 GRAMS... UD PRN PO 03/02/18 12:45 04/01/18 12:44 Glucose (Glucose Chew Tab) 4-8 Tablets 4 Tabl... UD PRN PO 03/02/18 12:45 04/01/18 12:44 Dextrose (Dextrose 50% 50ML Syringe) 25-50ML 25ML FOR ... UD PRN IV 03/02/18 12:45 04/01/18 12:44 Glucagon (Glucagon Inj) 1 mg UD PRN IM 03/02/18 12:45 04/01/18 12:44 Carbohydrates (Carbohydrates For Hypoglycemia) 15-30 GRAMS 15 grams if BSG 54-69... UD PRN PO 03/02/18 12:45 04/01/18 12:44 Miscellaneous Information (Consult Glycemic Management Pharmacy) 1 ea UD PRN N/A 03/02/18 12:45 04/01/18 12:44 Prednisone (PredniSONE TAB) 30 mg BID PO 03/02/18 21:00 04/01/18 20:59 Future Hold 03/02/18 20:40 30 MG Morphine Sulfate (MoRPHine SULFATE INJ) 2 mg Q4H PRN IV 03/02/18 23:15 03/16/18 23:14 03/02/18 23:47 2 MG Ondansetron HCl (Zofran Inj) 4 mg Q6H PRN IV 03/02/18 23:45 04/01/18 23:44 Fentanyl Citrate 250 ml @ 0 mls/hr Q0M PRN IV 03/03/18 02:59 03/17/18 02:58 03/08/18 03:19 125 MLS/HR Midazolam HCl 250 ml @ 0 mls/hr Q0M PRN IV 03/03/18 02:59 04/02/18 02:58 03/07/18 16:41 12 MLS/HR Pantoprazole Sodium 40 mg/ Syringe 10 ml @ 5 mls/min DAILY@1100 IV 03/03/18 03:30 04/02/18 03:29 03/07/18 10:16 5 MLS/MIN Ipratropium [place] (Atrovent Hfa Inhaler) 4 puffs QIDR INH 03/03/18 08:00 04/02/18 07:59 03/08/18 07:30 4 PUFFS Levalbuterol (Xopenex Hfa Inhaler) 4 puffs QIDR INH 03/03/18 08:00 04/02/18 07:59 03/08/18 07:30 4 PUFFS Heparin Sodium (Porcine) (Heparin Sq 5000 Unit/0.5ml) 5,000 unit Q8H SQ 03/04/18 09:00 04/03/18 08:59 03/08/18 00:29 5,000 UNIT Heparin Sodium (Porcine) (Heparin 10 Unit/ ml 5 ml Flush) 5 ml PRN PRN FLUSH 03/05/18 23:45 04/04/18 23:44 Enteral Nutritional Formula (Novasource Renal) 1,000 ml UD PRN OG 03/06/18 08:45 04/05/18 08:44 03/06/18 12:35 1,000 ML Methylprednisolone Sodium Succinate 40 mg/Syringe 0.64 ml @ 1.5 mls/min Q8 IV 03/06/18 15:00 04/05/18 14:59 03/08/18 05:56 1.5 MLS/MIN Piperacillin Sod/ Tazobactam Sod 4.5 gm/Dextrose 70 ml @ 17.5 mls/hr Q8H IV 03/06/18 12:00 03/08/18 19:59 03/08/18 04:31 17.5 MLS/HR Trimethoprim/ Sulfamethoxazole 368 mg/Dextrose 373 ml @ 250 mls/hr Q6H IV 03/06/18 15:00 03/11/18 02:59 03/08/18 02:39 250 MLS/HR Senna (Senokot Syrup) 8.8 mg BID PO 03/06/18 12:00 04/05/18 11:59 03/07/18 20:48 8.8 MG Magnesium Hydroxide (Milk Of Magnesia Susp) 30 ml BID PO 03/06/18 12:00 04/05/18 11:59 03/07/18 20:51 30 ML Docusate Sodium (coLACE SYRUP) 100 mg BID PO 03/06/18 12:00 04/05/18 11:59 03/07/18 20:49 100 MG Aspirin (Aspirin Chew) 324 mg DAILY PO 03/07/18 09:00 04/05/18 08:59 03/07/18 08:29 324 MG Caspofungin 50 mg/ Sodium Chloride 110 ml @ 110 mls/hr DAILY@0900 IV 03/08/18 09:00 03/19/18 09:59 Insulin Aspart (novoLOG ASPART) SLIDING SCALE G... Q4 SC 03/07/18 16:00 04/06/18 15:59 03/08/18 04:37 3 UNITS Insulin Glargine (Lantus Solostar Pen) 20 units BID SC 03/08/18 09:00 04/07/18 08:59 Vital Signs: Date Time Temp Pulse Resp B/P (MAP) Pulse Ox O2 Delivery O2 Flow Rate FiO2 03/08/18 07:31 30 03/08/18 06:00 117 22 173/84 (113) Mechanical Ventilator 30 03/08/18 05:39 30 03/08/18 05:00 96 26 155/76 (102) 89 Mechanical Ventilator 30 03/08/18 04:00 89 Mechanical Ventilator 30 03/08/18 04:00 37.2 96 26 157/78 (104) 88 Mechanical Ventilator 30 03/08/18 04:00 30 03/08/18 03:15 30 03/08/18 03:00 98 26 155/78 (103) 90 Mechanical Ventilator 30 03/08/18 02:00 101 26 148/75 (99) 89 Mechanical Ventilator 30 03/08/18 01:09 30 03/08/18 01:00 101 26 151/79 (103) 89 Mechanical Ventilator 30 03/08/18 00:00 37.3 103 26 144/72 (96) 92 Mechanical Ventilator 30 03/07/18 23:59 89 Mechanical Ventilator 30 03/07/18 23:59 30 03/07/18 23:00 122 29 175/89 (117) Mechanical Ventilator 30 03/07/18 22:00 97 26 153/78 (103) 89 Mechanical Ventilator 30 03/07/18 21:17 30 03/07/18 21:00 100 20 169/76 (107) 88 Mechanical Ventilator 30 03/07/18 20:00 89 Mechanical Ventilator 30 03/07/18 20:00 30 03/07/18 20:00 37.2 101 26 152/78 (102) 87 Mechanical Ventilator 30 03/07/18 19:00 102 27 148/76 (100) 87 Mechanical Ventilator 30 03/07/18 18:00 96 26 152/74 (100) 87 Mechanical Ventilator 30 158/79 (105) 03/07/18 17:47 30 03/07/18 16:04 30 03/07/18 16:00 30 03/07/18 16:00 90 Mechanical Ventilator 30 03/07/18 16:00 37.2 105 26 153/78 (103) 90 Mechanical Ventilator 30 03/07/18 14:14 30 03/07/18 14:00 101 26 125/66 (85) 90 Mechanical Ventilator 30 138/65 (89) 03/07/18 12:00 96 Mechanical Ventilator 30 03/07/18 12:00 30 03/07/18 12:00 37.3 106 26 138/83 (101) 88 Mechanical Ventilator 30 162/84 (110) 03/07/18 11:30 30 6/12/18 08:13 30 03/07/18 08:00 30 03/07/18 08:00 96 Mechanical Ventilator 30 03/07/18 08:00 37.2 100 27 141/86 (104) 96 Mechanical Ventilator 30 153/70 (97) 03/07/18 08:00 Mechanical Ventilator 30 Laboratory Results: Last 24 Hours Test 03/07/18 08:54 03/07/18 10:18 03/07/18 11:27 03/07/18 12:36 Bedside Glucose 151 mg/dl 163 mg/dl 145 mg/dl 113 mg/dl Test 03/07/18 13:27 03/07/18 14:35 03/07/18 15:27 03/07/18 17:59 Bedside Glucose 102 mg/dl 114 mg/dl 101 mg/dl Blood Gas Sample Site Art Line Bedside Blood Gas pH (LAB) 7.44 Bedside Blood Gas pCO2 (LAB) 57 mmHg Bedside Blood Gas pO2 (LAB) 55 mmHg Bedside Blood Gas HCO3 (LAB) 38 meq/L Bedside Blood Gas Total CO2 > 40 mEq/l Bedside Blood Gas Base Excess (LAB) 14.0 meq/L Bedside Blood Gas O2 Saturation 88.0 % [place] Test NA Oxygen Delivery Device Ventilator Bedside Oxygen Rate (breaths/min) 26 Bedside FiO2 30 % Blood Gas Tidal Volume 350 Blood Gas PEEP 10 Test 03/07/18 20:37 03/07/18 23:50 03/08/18 00:22 03/08/18 04:30 Bedside Glucose 135 mg/dl 137 mg/dl 151 mg/dl Blood Gas Sample Site Art Line Bedside Blood Gas pH (LAB) 7.44 Bedside Blood Gas pCO2 (LAB) 55 mmHg Bedside Blood Gas pO2 (LAB) 79 mmHg Bedside Blood Gas HCO3 (LAB) 37 meq/L Bedside Blood Gas Total CO2 39 mEq/l Bedside Blood Gas Base Excess (LAB) 13.0 meq/L Bedside Blood Gas O2 Saturation 96.0 % [place] Test NA Oxygen Delivery Device Ventilator Bedside Oxygen Rate (breaths/min) 26 Blood Gas Minute Ventilation 10.1 Bedside FiO2 30 % Blood Gas Tidal Volume 350 Blood Gas PEEP 10 Test 03/08/18 04:32 03/08/18 05:12 Sodium Level 131 mmol/L Potassium Level 5.5 mmol/L Chloride Level 94 mmol/L Carbon Dioxide Level 32 mmol/L Anion Gap 5.0 mmol/L Blood Urea Nitrogen 42 mg/dl Creatinine 1.11 mg/dl Est Creatinine Clear Calc Drug Dose 92.3 ml/min Estimated GFR () 87.4 Estimated GFR (Non- 75.4 BUN/Creatinine Ratio 38.0 Random Glucose 157 mg/dl Estimated Average Glucose 123 mg/dl Hemoglobin A1c 5.9 % Calcium Level 8.4 mg/dl Phosphorus Level 3.0 mg/dl Magnesium Level 2.9 mg/dl Procalcitonin 0.06 ng/ml Blood Gas Sample Site Art Line Bedside Blood Gas pH (LAB) 7.42 Bedside Blood Gas pCO2 (LAB) 57 mmHg Bedside Blood Gas pO2 (LAB) 53 mmHg Bedside Blood Gas HCO3 (LAB) 37 meq/L Bedside Blood Gas Total CO2 39 mEq/l Bedside Blood Gas Base Excess (LAB) 13.0 meq/L Bedside Blood Gas O2 Saturation 86.0 % [place] Test NA Oxygen Delivery Device Ventilator Bedside Oxygen Rate (breaths/min) 26 Blood Gas Minute Ventilation 9.6 Bedside FiO2 30 % Blood Gas Tidal Volume 350 Blood Gas PEEP 10 Resident Tracking Resident Involvement: Resident Care Provided Care Provided: Adult Hospital Medicine
[2018-03-08] MEDS ORDERED: ETOMIDATE 2 MG/ML 20 ML VIAL IV ONE (08:13)
[2018-03-08] MEDS ORDERED: SUCCINYLCHOLINE CHLORIDE 20 MG/ML 10 ML VIAL IV ONE (08:13)
[2018-03-08] MEDS ORDERED: MIDAZOLAM HCL 5 MG/ML 1 ML VIAL IV ONE (08:13)
[2018-03-08] MEDS: CASPOFUNGIN INJ 50 MG in SODIUM CHLORIDE 0.9% 100ML 100 ML IV SCH (08:29)
[2018-03-08] MEDS ORDERED: FUROSEMIDE INJ 40 MG in SYRINGE 0 ML IV ONE (08:50)
[2018-03-08] MEDS ORDERED: INSULIN GLARGINE SOLOSTAR 100 UNITS/ML 3 ML PEN SC SCH ×2 (09:00→21:00)
[2018-03-08] MEDS: SENNA 8.8 MG/5 ML UDP PO SCH ×2 (09:06→21:04)
[2018-03-08] MEDS: MAGNESIUM HYDROXIDE SUSP 30 ML UDC PO SCH ×2 (09:06→21:05)
[2018-03-08] MEDS: GABAPENTIN 100 MG CAP PO SCH ×2 (09:06→21:04)
[2018-03-08] MEDS: DOCUSATE SODIUM 100 MG/10 ML UDC PO SCH ×2 (09:07→21:05)
[2018-03-08] MEDS: PAROXETINE 20 MG TAB PO SCH (09:07)
[2018-03-08] MEDS: ASPIRIN 81 MG CHEW PO SCH (09:12)
--- NOTE | 2018-03-08 09:27 | DIAGNOSTIC IMAGING REPORT ---
KUB HISTORY: sedated, on ventilator. no BM since admission COMPARISON: Chest and abdominal series 02/03/2018. FINDINGS: The bowel gas pattern is unremarkable. There are no dilated loops of small bowel to suggest an obstruction. No renal calculi. No ureteral calculi. No pneumoperitoneum or pneumatosis. Small to moderate amount well-formed stool within the colon. Levoscoliosis of the lumbar spine. A [place] catheter is noted. Nasogastric tube terminates in the proximal stomach. IMPRESSION: 1. No evidence for bowel obstruction. 2. Small to moderate amount of well-formed stool within the colon. This is similar to the prior study. 3. Levoscoliosis. 4. Nasogastric tube terminates in the proximal stomach. Electronically signed by: Adams Burgess M.D. 03/08/2018 9:26 AM Dictated Date/Time: 03/08/2018 9:23 AM
[2018-03-08] MEDS ORDERED: METHYLNALTREXONE BROMIDE INJ 12 MG/0.6 ML SYR SQ ONE (09:30)
[2018-03-08 09:38] LABS: ALBUMIN 2.8 gm/dl (3.4-5.0); TOTAL PROTEIN 6.6 gm/dl (6.4-8.2)
[2018-03-08] MEDS: PANTOprazole INJ 40 MG in SYRINGE 0 ML IV SCH (10:08)
--- NOTE | 2018-03-08 10:50 | Progress Note ---
Subjective Date of Service: Mar 08, 2018. Subjective pt remains on emperic zosyn, bactrim, and caspo. blood cultures negative and final. bronch culture negative and final, path negative, fungal and afb cultures negative to date. sputum with C. albicans. remains on steroids, wbc remains elevated, ? related to this. afebrile. mycoplasma, legionella, HIV all negative. Flu negative. CXR this am with slight improvement. Problem List Medical Problems: (1) Asthma Status: Chronic (2) Bilateral pneumonia Status: Acute (3) Chest pain, unspecified Status: Acute (4) Chronic back pain Status: Chronic (5) COPD exacerbation Status: Acute (6) Depression Status: Chronic (7) Dyslipidemia Status: Chronic (8) Gastroesophageal reflux disease Status: Chronic (9) Migraine Status: Chronic (10) Pericarditis Status: Acute (11) Pneumonitis Status: Acute (12) Scoliosis Status: Chronic (13) Sleep disorder Status: Chronic Objective Vital Signs Date Time Temp Pulse Resp B/P (MAP) Pulse Ox O2 Delivery O2 Flow Rate FiO2 03/08/18 10:00 100 22 154/73 (100) 94 Mechanical Ventilator 40 152/88 (109) 03/08/18 09:00 100 22 157/78 (104) 88 Mechanical Ventilator 40 03/08/18 08:30 40 03/08/18 08:00 37.1 114 26 169/88 (115) 90 Mechanical Ventilator 30 03/08/18 08:00 40 03/08/18 08:00 90 Mechanical Ventilator 40 03/08/18 08:00 Mechanical Ventilator 30 03/08/18 07:31 30 03/08/18 07:00 116 25 176/89 (118) Mechanical Ventilator 30 03/08/18 06:00 117 22 173/84 (113) Mechanical Ventilator 30 03/08/18 05:39 30 03/08/18 05:00 96 26 155/76 (102) 89 Mechanical Ventilator 30 03/08/18 04:00 89 Mechanical Ventilator 30 03/08/18 04:00 37.2 96 26 157/78 (104) 88 Mechanical Ventilator 30 03/08/18 04:00 30 03/08/18 03:15 30 03/08/18 03:00 98 26 155/78 (103) 90 Mechanical Ventilator 30 03/08/18 02:00 101 26 148/75 (99) 89 Mechanical Ventilator 30 03/08/18 01:09 30 03/08/18 01:00 101 26 151/79 (103) 89 Mechanical Ventilator 30 03/08/18 00:00 37.3 103 26 144/72 (96) 92 Mechanical Ventilator 30 03/07/18 23:59 89 Mechanical Ventilator 30 03/07/18 23:59 30 03/07/18 23:00 122 29 175/89 (117) Mechanical Ventilator 30 03/07/18 22:00 97 26 153/78 (103) 89 Mechanical Ventilator 30 03/07/18 21:17 30 03/07/18 21:00 100 20 169/76 (107) 88 Mechanical Ventilator 30 03/07/18 20:00 89 Mechanical Ventilator 30 03/07/18 20:00 30 03/07/18 20:00 37.2 101 26 152/78 (102) 87 Mechanical Ventilator 30 03/07/18 19:00 102 27 148/76 (100) 87 Mechanical Ventilator 30 03/07/18 18:00 96 26 152/74 (100) 87 Mechanical Ventilator 30 158/79 (105) 03/07/18 17:47 30 03/07/18 16:04 30 03/07/18 16:00 30 03/07/18 16:00 90 Mechanical Ventilator 30 03/07/18 16:00 37.2 105 26 153/78 (103) 90 Mechanical Ventilator 30 03/07/18 14:14 30 03/07/18 14:00 101 26 125/66 (85) 90 Mechanical Ventilator 30 138/65 (89) 03/07/18 12:00 96 Mechanical Ventilator 30 03/07/18 12:00 30 03/07/18 12:00 37.3 106 26 138/83 (101) 88 Mechanical Ventilator 30 162/84 (110) 03/07/18 11:30 30 Laboratory Results Item Value Date Time Gram Stain - Final Complete 03/03/18 1210 Bronchial Washings Left Lingula Blood Culture - Final Complete 03/01/182119 Blood NO GROWTH Blood Culture - Final Complete 03/01/182109 Blood NO GROWTH Acid Fast Stain - Final Resulted 03/03/18 1210 Bronchial Washings Left Lingula Fungal Smear - Final Resulted 03/03/18 1210 Bronchial Washings Left Lingula Last 24 Hours Test 03/07/18 11:27 03/07/18 12:36 03/07/18 13:27 03/07/18 14:35 Bedside Glucose 145 mg/dl 113 mg/dl 102 mg/dl 114 mg/dl Test 03/07/18 15:27 03/07/18 17:59 03/07/18 20:37 03/07/18 23:50 Bedside Glucose 101 mg/dl 135 mg/dl Blood Gas Sample Site Art Line Art Line Bedside Blood Gas pH (LAB) 7.44 7.44 Bedside Blood Gas pCO2 (LAB) 57 mmHg 55 mmHg Bedside Blood Gas pO2 (LAB) 55 mmHg 79 mmHg Bedside Blood Gas HCO3 (LAB) 38 meq/L 37 meq/L Bedside Blood Gas Total CO2 > 40 mEq/l 39 mEq/l Bedside Blood Gas Base Excess (LAB) 14.0 meq/L 13.0 meq/L Bedside Blood Gas O2 Saturation 88.0 % 96.0 % [place] Test NA NA Oxygen Delivery Device Ventilator Ventilator Bedside Oxygen Rate (breaths/min) 26 26 Bedside FiO2 30 % 30 % Blood Gas Tidal Volume 350 350 Blood Gas PEEP 10 10 Blood Gas Minute Ventilation 10.1 Test 03/08/18 00:22 03/08/18 04:30 03/08/18 04:32 03/08/18 05:12 Bedside Glucose 137 mg/dl 151 mg/dl Sodium Level 131 mmol/L Potassium Level 5.5 mmol/L Chloride Level 94 mmol/L Carbon Dioxide Level 32 mmol/L Anion Gap 5.0 mmol/L Blood Urea Nitrogen 42 mg/dl Creatinine 1.11 mg/dl Est Creatinine Clear Calc Drug Dose 92.3 ml/min Estimated GFR () 87.4 Estimated GFR (Non- 75.4 BUN/Creatinine Ratio 38.0 Random Glucose 157 mg/dl Estimated Average Glucose 123 mg/dl Hemoglobin A1c 5.9 % Calcium Level 8.4 mg/dl Phosphorus Level 3.0 mg/dl Magnesium Level 2.9 mg/dl Procalcitonin 0.06 ng/ml Blood Gas Sample Site Art Line Bedside Blood Gas pH (LAB) 7.42 Bedside Blood Gas pCO2 (LAB) 57 mmHg Bedside Blood Gas pO2 (LAB) 53 mmHg Bedside Blood Gas HCO3 (LAB) 37 meq/L Bedside Blood Gas Total CO2 39 mEq/l Bedside Blood Gas Base Excess (LAB) 13.0 meq/L Bedside Blood Gas O2 Saturation 86.0 % [place] Test NA Oxygen Delivery Device Ventilator Bedside Oxygen Rate (breaths/min) 26 Blood Gas Minute Ventilation 9.6 Bedside FiO2 30 % Blood Gas Tidal Volume 350 Blood Gas PEEP 10 Test 03/08/18 08:57 Total Bilirubin 0.4 mg/dl Direct Bilirubin 0.1 mg/dl Aspartate Amino Transf (AST/SGOT) 24 U/L Alanine Aminotransferase (ALT/SGPT) 49 U/L Alkaline Phosphatase 59 U/L Total Protein 6.6 gm/dl Albumin 2.8 gm/dl Assessment and Plan (1) COPD exacerbation Assessment & Plan: suspect c albicans is related to oral colonization and not pna as bronch culture negative and bronch path without fungal elements. all cultures negative, has received emperic course of abx, agree with stopping.
--- NOTE | 2018-03-08 10:57 | DIAGNOSTIC IMAGING REPORT ---
BILATERAL LOWER EXTREMITY VENOUS DOPPLER CLINICAL HISTORY: 7 days on vent - r/o LE DVT COMPARISON STUDY: No previous studies for comparison. TECHNIQUE: Sonography of the deep venous system of the bilateral lower extremities was performed. Compression and augmentation were evaluated. FINDINGS: The bilateral common femoral, superficial femoral and popliteal veins were compressible. Augmentation was normal. Flow was shown within the deep calf vessels. IMPRESSION: No evidence of deep venous thrombus within the bilateral lower extremities. Electronically signed by: Carlton Del Valle M.D. 03/08/2018 10:55 AM Dictated Date/Time: 03/08/2018 10:55 AM
--- NOTE | 2018-03-08 11:10 | Progress Note ---
Internal Med Progress Note Date of Service: Mar 08, 2018. Provider Documentation: SUBJECTIVE: Continues to be on mechanical ventilation and remains intubated. Heart rate 96 bpm, blood pressure 143/66 via arterial line. Patient is sedated. Has feeding tube, Has willams OBJECTIVE: General- as above Head- atraumatic Neck- supple, no JVD Lungs- on mechanical ventilation Heart- regular rhythm Abdomen- soft, bowel sounds present Extremities- lower extremity pulses intact Neuro- sedated ASSESSMENT & PLAN: 52-year-old male with a history of asthma & COPD who was admitted to the ICU for acute on chronic respiratory failure with noted hypoxia and respiratory distress. He was unable to tolerate BiPAP and has been maintained on 5L of oxygen via oxymask. 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 Resp: Hypersensitivity Pneumonitis/ARDS vs pneumonia -ARDS protocol ventilation - methylprednisone - xopenex ID: - was previously on vancomycin and azithromycin - Blood Cultures 03/01/18 are negative - currently on Zosyn IV (last dose on 03/08/18, bactrim IV and casopofungin IV -karla albicans in sputum from 03/04/18, on caspofungin treatment - ICU continuing antifungal because of lot of growth as per their discussion with pathology and caspofungin to be continued for now -BAL cultures negative, last dose of Zosyn to be given on 03/08/18 -urinary legionella negative, mycoplasma IgM is negative, mycoplasma IgG is equivocal -given LDH elevated at 538, on bactrim 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 - HIV results negative Neuro: Sedation - sedated with Versed Pain - continue fentanyl prn for pain Chronic Pain - Continue Gabapentin Depression - Continue Paxil Cardiovascular: -aspirin 324 mg daily -ECHO showed * Normal LV chamber size and wall thickness. * Normal LV systolic function, EF 65-70%. * No segmental left ventricular wall motion abnormalities are noted. * Grade I diastolic dysfunction. * Poorly visualized RV. * No significant valvular pathology. Fluids/Renal/Electrolytes -Acute Kidney injury improving as creatinine 1.33 to 1.17 to 1.11 and no longer on vancomycin -has received Lasix to prevent fluid overload -high normal potassium vs hyperkalemia. serum potassium 5.5, monitor on telemetry GI/Nutrition: -enteral feeds -GERD/GI prophylaxis: Pantoprazole 40mg IV daily -bowel regimen: docusate, senna and milk of mag -KUB did not show evidence of bowel obstruction -add methylnaltrexone to aid with bowel motility - LFTs checked today and WNL Heme: -generally stable Endocrine: - HbA1c = 6.5% - Accu-Checks per protocol, Insulin Access: Right triple lumen IJ and right radial A line DVT Prophylaxis: 5,000 units heparin q8h Code status: FULL DISPOSITION Continue monitor in the ICU Vital Signs: Date Time Temp Pulse Resp B/P (MAP) Pulse Ox O2 Delivery O2 Flow Rate FiO2 03/08/18 11:00 37.1 96 22 138/65 (89) 93 Mechanical Ventilator 40 03/08/18 10:00 100 22 154/73 (100) 94 Mechanical Ventilator 40 152/88 (109) 03/08/18 09:00 100 22 157/78 (104) 88 Mechanical Ventilator 40 03/08/18 08:30 40 03/08/18 08:00 37.1 114 26 169/88 (115) 90 Mechanical Ventilator 30 03/08/18 08:00 40 03/08/18 08:00 90 Mechanical Ventilator 40 03/08/18 08:00 Mechanical Ventilator 30 03/08/18 07:31 30 03/08/18 07:00 116 25 176/89 (118) Mechanical Ventilator 30 03/08/18 06:00 117 22 173/84 (113) Mechanical Ventilator 30 03/08/18 05:39 30 03/08/18 05:00 96 26 155/76 (102) 89 Mechanical Ventilator 30 03/08/18 04:00 89 Mechanical Ventilator 30 03/08/18 04:00 37.2 96 26 157/78 (104) 88 Mechanical Ventilator 30 03/08/18 04:00 30 03/08/18 03:15 30 03/08/18 03:00 98 26 155/78 (103) 90 Mechanical Ventilator 30 03/08/18 02:00 101 26 148/75 (99) 89 Mechanical Ventilator 30 03/08/18 01:09 30 03/08/18 01:00 101 26 151/79 (103) 89 Mechanical Ventilator 30 03/08/18 00:00 37.3 103 26 144/72 (96) 92 Mechanical Ventilator 30 03/07/18 23:59 89 Mechanical Ventilator 30 03/07/18 23:59 30 03/07/18 23:00 122 29 175/89 (117) Mechanical Ventilator 30 03/07/18 22:00 97 26 153/78 (103) 89 Mechanical Ventilator 30 03/07/18 21:17 30 03/07/18 21:00 100 20 169/76 (107) 88 Mechanical Ventilator 30 03/07/18 20:00 89 Mechanical Ventilator 30 03/07/18 20:00 30 03/07/18 20:00 37.2 101 26 152/78 (102) 87 Mechanical Ventilator 30 03/07/18 19:00 102 27 148/76 (100) 87 Mechanical Ventilator 30 03/07/18 18:00 96 26 152/74 (100) 87 Mechanical Ventilator 30 158/79 (105) 03/07/18 17:47 30 03/07/18 16:04 30 03/07/18 16:00 30 03/07/18 16:00 90 Mechanical Ventilator 30 03/07/18 16:00 37.2 105 26 153/78 (103) 90 Mechanical Ventilator 30 03/07/18 14:14 30 03/07/18 14:00 101 26 125/66 (85) 90 Mechanical Ventilator 30 138/65 (89) 03/07/18 12:00 96 Mechanical Ventilator 30 03/07/18 12:00 30 03/07/18 12:00 37.3 106 26 138/83 (101) 88 Mechanical Ventilator 30 162/84 (110) 03/07/18 11:30 30 Lab Results: Results Past 24 Hours Test 03/07/18 11:27 03/07/18 12:36 03/07/18 13:27 03/07/18 14:35 Range/Units Bedside Glucose 145 113 102 114 70-99 mg/dl Test 03/07/18 15:27 03/07/18 17:59 03/07/18 20:37 03/07/18 23:50 Range/Units Bedside Glucose 101 135 70-99 mg/dl Blood Gas Sample Site Art Line Art Line Bedside Blood Gas pH (LAB) 7.44 7.44 7.35-7.45 Bedside Blood Gas pCO2 (LAB) 57 55 35-46 mmHg Bedside Blood Gas pO2 (LAB) 55 79 80-95 mmHg Bedside Blood Gas HCO3 (LAB) 38 37 19-24 meq/L Bedside Blood Gas Total CO2 > 40 39 24-31 mEq/l Bedside Blood Gas Base Excess (LAB) 14.0 13.0 -9-1.8 meq/L Bedside Blood Gas O2 Saturation 88.0 96.0 90-95 % [place] Test NA NA Oxygen Delivery Device Ventilator Ventilator Bedside Oxygen Rate (breaths/min) 26 26 Bedside FiO2 30 30 % Blood Gas Tidal Volume 350 350 Blood Gas PEEP 10 10 Blood Gas Minute Ventilation 10.1 Test 03/08/18 00:22 03/08/18 04:30 03/08/18 04:32 03/08/18 05:12 Range/Units Bedside Glucose 137 151 70-99 mg/dl Sodium Level 131 136-145 mmol/L Potassium Level 5.5 3.5-5.1 mmol/L Chloride Level 94 98-107 mmol/L Carbon Dioxide Level 32 21-32 mmol/L Anion Gap 5.0 3-11 mmol/L Blood Urea Nitrogen 42 7-18 mg/dl Creatinine 1.11 0.60-1.40 mg/dl Est Creatinine Clear Calc Drug Dose 92.3 ml/min Estimated GFR () 87.4 Estimated GFR (Non- 75.4 BUN/Creatinine Ratio 38.0 10-20 Random Glucose 157 70-99 mg/dl Estimated Average Glucose 123 mg/dl Hemoglobin A1c 5.9 4.5-5.6 % Calcium Level 8.4 8.5-10.1 mg/dl Phosphorus Level 3.0 2.5-4.9 mg/dl Magnesium Level 2.9 1.8-2.4 mg/dl Procalcitonin 0.06 0-0.5 ng/ml Blood Gas Sample Site Art Line Bedside Blood Gas pH (LAB) 7.42 7.35-7.45 Bedside Blood Gas pCO2 (LAB) 57 35-46 mmHg Bedside Blood Gas pO2 (LAB) 53 80-95 mmHg Bedside Blood Gas HCO3 (LAB) 37 19-24 meq/L Bedside Blood Gas Total CO2 39 24-31 mEq/l Bedside Blood Gas Base Excess (LAB) 13.0 -9-1.8 meq/L Bedside Blood Gas O2 Saturation 86.0 90-95 % [place] Test NA Oxygen Delivery Device Ventilator Bedside Oxygen Rate (breaths/min) 26 Blood Gas Minute Ventilation 9.6 Bedside FiO2 30 % Blood Gas Tidal Volume 350 Blood Gas PEEP 10 Test 03/08/18 08:57 Range/Units Total Bilirubin 0.4 0.2-1 mg/dl Direct Bilirubin 0.1 0-0.2 mg/dl Aspartate Amino Transf (AST/SGOT) 24 15-37 U/L Alanine Aminotransferase (ALT/SGPT) 49 12-78 U/L Alkaline Phosphatase 59 45-117 U/L Total Protein 6.6 6.4-8.2 gm/dl Albumin 2.8 3.4-5.0 gm/dl
[2018-03-08] MEDS: DIAZEPAM 5MG TAB PO SCH ×3 (12:45→21:21)
[2018-03-08] MEDS: OXYCODONE HCL SOLN 5 MG/5 ML UDC PO SCH ×3 (12:45→21:21)
[2018-03-08] MEDS: MIDAZOLAM 125MG/250ML D5W 250 ML IV PRN (12:52)
--- NOTE | 2018-03-08 14:53 | Pharmacy Progress Note ---
Glycemic: Assessment & Plan Date of Service Mar 08, 2018. Assessment & Plan The patient is currently receiving 47-59 units of insulin per day. BSGs ranging 101 - 199 mg/dl over the past 24hrs. Patient was successfully transferred off of the insulin drip yesterday. The patient continues on solumedrol 40mg IV q8h and novasource renal @ 20 cc/hr. Will use prior insulin requirements and weight based steroid dosing recommendations to help guide dosing. * Basal insulin: Lantus 20 units this morning, then per scale for tonight (BSG<120: give 10 units; BSG 120-180 Give 20 units; BSG> 180 Give 25 units) * Correctional Insulin: Novolog Correction per scale ACHS Goal Range: Low 110 mg/dL - High 150 mg/dL Correction Factor: 20 mg/dL/unit * Prandial insulin: Per carb ratio of 1 unit per 6 grams CHO consumed ( as per tube feeds) Pharmacy will continue to monitor patient daily and write orders per [facility] inpatient glycemic control protocol. Thanks. * Please note that the plan above was derived based on current level of insulin resistance and hospital stress. These recommendations are appropriate for inpatient admission only. Plan of care upon discharge will need to be reassessed to avoid potential outpatient hypo/hyperglycemia.
[2018-03-08] MEDS ORDERED: NURSING VERBAL MED ORDER ONE (17:00)
[2018-03-08] MEDS: NOVASOURCE RENAL 1000ML BAG OG PRN (17:08)
[2018-03-08 17:31] LABS: ANA SCREEN TC 249X NEGATIVE (NEGATIVE)
[2018-03-08] MEDS: PRAVASTATIN SOD 40 MG TAB PO SCH (21:05)
[2018-03-09] VITALS (33 sets, daily range): BP systolic 95–200; BP diastolic 61–123; PULSE 70–148; TEMP 36.7–37.4; O2SAT 84–100
[2018-03-09] MEDS: INSULIN ASPART 100 UNITS/ML 3 ML PEN SC SCH ×7 (00:34→23:53)
[2018-03-09] MEDS: HEPARIN SOD 5000 UNIT/0.5 ML CARP SQ SCH ×3 (00:35→16:35)
[2018-03-09] MEDS: DEXTROSE 5% IV SCH ×4 (02:37→20:51)
[2018-03-09] MEDS: SULFA IV SCH ×4 (02:37→20:51)
[2018-03-09] MEDS: TRIMETH IV SCH ×4 (02:37→20:51)
[2018-03-09] MEDS: FENTANYL 1250MCG/250ML NSS 250 ML IV PRN ×2 (02:56→15:47)
[2018-03-09 05:57] LABS: BASO % 0.1 %; BASO ABS # 0.02 K/uL (0-0.2); EOS % 0.1 %; EOS ABS # 0.01 K/uL (0-0.5); HEMATOCRIT 29.4 % (42-52); HEMOGLOBIN 9.7 g/dL (14.0-18.0); IG# 0.51 K/uL (0.00-0.02); LYMPH % 14.1 %; LYMPH ABS # 2.02 K/uL (1.2-3.4); MEAN CELL VOLUME 94.8 fL (80-100); MEAN CORPUSCULAR HEMOGLOBIN 31.3 pg (25-34); MEAN PLATELET VOLUME 9.3 fL (7.4-10.4); MONO % 7.6 %; MONO ABS # 1.09 K/uL (0.11-0.59); NEUT % 74.5 %; NEUT ABS # 10.71 K/uL (1.4-6.5); NUCLEATED RED BLOOD CELL ABS 0.06 K/uL (0-0); PLATELET COUNT 177 K/uL (130-400); RED CELL DISTRIBUTION WIDTH CV 13.8 % (11.5-14.5); WHITE BLOOD COUNT 14.36 K/uL (4.8-10.8)
[2018-03-09] MEDS: METHYLPREDNISOLONE IV 40 MG in SYRINGE 0 ML IV SCH (05:58)
[2018-03-09 06:06] LABS: ALBUMIN 2.5 gm/dl (3.4-5.0); CALCIUM 8.4 mg/dl (8.5-10.1); CREATININE 1.09 mg/dl (0.60-1.40); PHOSPHORUS 3.4 mg/dl (2.5-4.9); POTASSIUM 5.3 mmol/L (3.5-5.1); TOTAL PROTEIN 5.8 gm/dl (6.4-8.2)
--- NOTE | 2018-03-09 06:53 | DIAGNOSTIC IMAGING REPORT ---
CHEST ONE VIEW PORTABLE CLINICAL HISTORY: Respiratory failure COMPARISON STUDY: 03/08/2018 FINDINGS: There is an endotracheal tube 4.2 cm above the raad. There is a nasogastric tube which passes into the stomach. There is a right internal jugular central venous catheter projected in the superior vena cava. The study is rotated. The heart is enlarged. There is radiographic evidence of congestive failure/fluid overload. There is a prominent scoliosis. Diffuse bilateral airspace opacities remain similar.[ There is stable left-sided rib deformities. IMPRESSION: Stable findings Electronically signed by: Isma London M.D. 03/09/2018 6:52 AM Dictated Date/Time: 03/09/2018 6:50 AM
[2018-03-09] MEDS: IPRATROPIUM BROMIDE HFA INHALER INH SCH ×4 (07:20→18:58)
[2018-03-09] MEDS: LEValbuterol HFA 15GM INHALER INH SCH ×4 (07:20→18:58)
[2018-03-09] MEDS ORDERED: RAPID SEQUENCE INDUCTION BAG ONE (07:25)
[2018-03-09] MEDS ORDERED: ROCURONIUM BROMIDE 10 MG/ML 10 ML VIAL IV SCH (07:30)
[2018-03-09] MEDS ORDERED: MAGNESIUM CITRATE 296 ML/BTL PO ONE (08:15)
[2018-03-09] MEDS ORDERED: METHYLNALTREXONE BROMIDE INJ 12 MG/0.6 ML SYR SQ ONE ×2 (08:15→10:30)
[2018-03-09] MEDS ORDERED: CALCIUM GLUCONATE 10% 1,000 MG in SODIUM CHLORIDE 0.9% 50ML 50 ML IV ONE (08:30)
[2018-03-09] MEDS: PROPRANOLOL HCL 10 MG TAB PO SCH ×4 (08:41→20:36)
[2018-03-09] MEDS: FUROSEMIDE INJ 40 MG in SYRINGE 0 ML IV SCH (08:59)
[2018-03-09] MEDS ORDERED: METOPROLOL TARTRATE 25 MG TAB PO SCH (09:00)
[2018-03-09] MEDS ORDERED: OXYCODONE HCL SOLN 5 MG/5 ML UDC PO SCH (09:00)
[2018-03-09] MEDS ORDERED: CLONIDINE HCL 0.1 MG TAB PO SCH (09:00)
[2018-03-09] MEDS: ASPIRIN 81 MG CHEW PO SCH (09:00)
[2018-03-09] MEDS: DOCUSATE SODIUM 100 MG/10 ML UDC PO SCH ×2 (09:01→20:35)
[2018-03-09] MEDS: GABAPENTIN 100 MG CAP PO SCH ×2 (09:01→20:36)
[2018-03-09] MEDS: CLONIDINE HCL 0.1 MG TAB PO SCH ×3 (09:01→20:35)
[2018-03-09] MEDS: MAGNESIUM HYDROXIDE SUSP 30 ML UDC PO SCH ×2 (09:01→20:33)
[2018-03-09] MEDS: SENNA 8.8 MG/5 ML UDP PO SCH ×2 (09:02→20:33)
[2018-03-09] MEDS: PAROXETINE 20 MG TAB PO SCH (09:02)
[2018-03-09] MEDS: DIAZEPAM 5MG TAB PO SCH ×4 (09:05→20:32)
[2018-03-09] MEDS: INSULIN GLARGINE SOLOSTAR 100 UNITS/ML 3 ML PEN SC SCH ×2 (09:14→20:00)
[2018-03-09] MEDS: CASPOFUNGIN INJ 50 MG in SODIUM CHLORIDE 0.9% 100ML 100 ML IV SCH (09:17)
--- NOTE | 2018-03-09 10:12 | Critical Care Progress Note ---
Critical Care Progress Note Date of Service Mar 09, 2018. ICU Day ICU Day Number: [address] London Subjective Mr. Winchester remains sedated and on a ventilator. Overnight, he did well with oxycodone and valium, however with the decreasing dose of versed, he became more agitated. His vent settings did not change through the night, and he remains at an FiO2 of 40% and PEEP of 10. He did have hematuria from his willams catheter after he became particularly agitated. An H&H and coag was checked, which was stable. His hematuria continues to decrease throughout the morning, and his urine has lightened in color. Patient did also dislodge his arterial line this morning while agitated. Objective GENERAL: Sedated, on mechanical ventilator. Pt awakens easily and attempts to fight his restraints. Right triple lumen IJ in place. HENT: Normocephalic, atraumatic. RESPIRATORY: Decreased, coarse breath sounds bilaterally. CARDIAC: Tachycardic at 145. Normal rhythm. ABDOMEN: Soft, mildly distended. INTEGUMENTARY: At the time of my assessment, pt had warm, moist skin, generalized edema. 1-2 ruptured blisters on his right arm. Multiple ecchymoses noted throughout his calves, which were present on admission. LOWER EXTREMITIES: Cool to touch. Pulses palpable. Calves are equal size bilaterally. : Willams Catheter in place, draining light red urine. Assessment & Plan Mr. Winchester is a 52-year-old male with a history of asthma & COPD who was admitted to the ICU for acute on chronic respiratory failure with noted hypoxia and respiratory distress. He was unable to tolerate BiPAP. 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 Mr. Winchester has been difficult to wean off of his sedatives , and his respiratory status has remained unchanged since yesterday. He may benefit from placement of a trach if, by Tuesday, he has not made much progress. Neuro: Sedation - sedated with Versed at 6mg/hr. -> continue 15mg of valium qid to help w/weaning versed -> aim to wean down Versed to 4mg/hr - his agitation is likely secondary to opioid withdrawal -> add clonidine to offset effects -> increase roxicodone to 20mg q6h Pain - continue fentanyl. Currently at 75 mcg/h. Chronic Pain - Continue Gabapentin Depression - Continue Paxil Resp: Hypersensitivity Pneumonitis/ARDS - methylpred - start steroid wean -> decrease to 30mg IV TID - daily CXR to monitor -> stable from yesterday - continue xopenex - sputum culture positive for karla -> continue caspofungin (day 414) - continue Bactrim - coverage for PJP (given elevated LDH). Will treat with 14 day course. CV: - Continue home statin and ASA - ECHO showed EF = 65-70% w/grade 1 diastolic dysfunction. No wall motion abnormalities. - with agitation, pt has been persistently tachycardic and hypertensive -> start propranolol and monitor - EKG with QTc of 427 - 1g calcium gluconate given hyperkalemia and hypermagnesemia Fluids/Renal: - Creatinine stable at 1.09 - aim for net negative of 1-2L per day -> concentrate medications in fluids,no maintenance IVF -> Schedule Lasix 40mg IV daily, strict I/Os. - follow daily BMP, Mg and phos - nephro following ID: - Remains afebrile - treating for suspected PJP and possible candidal infection - Continue bactrim IV and caspofungin IV - Blood Cultures negative - HIV -ve GI/Nutrition: - continue novasource renal tube feeds - management as per nutrition, Increase to 30mls/hr GERD/GI prophylaxis - Pantoprazole 40mg IV daily - increase bowel regimen: -> VALDO today revealed adequate sphincter tone and empty vault - LFTs checked today and WNL -> given caspofungin use, check q72h : - willams in place - hematuria resolving, continue to monitor - likely secondary to agitation & straining Heme: - Hgb stable at 9.7, MCV normal - Plts 177 - bilateral venous doppler negative for DVT Endocrine: - HbA1c = 5.9% - Lantus 20 units BID and ISS - blood sugar = 89-167 Access: Right triple lumen IJ and 20G left peripheral IV DVT Prophylaxis: 5,000 units heparin q8h Code status: FULL Dr. Tamayo was resident physician during care of patient. I separately evaluated patient and did history and exam. I discussed the case with the resident and generally agree with the findings and plan. Patient's lungs have improved, we have decreased the steroid dose, I believe at this time we are waiting for the patient's neuro status to improve given the heavy sedatives during neuromuscular blockade. He appears to be responsive to opiates and exhibited signs consistent with possible withdrawal tachycardia, hypertension, diaphoresis. We have increased his opiate dosing slightly, albeit less than previous daily dosing, continue to attempt to decline the benzodiazepine requirement. Additionally I am giving propranolol and clonidine to help manage physiologic tolerance. Understandably the patient is getting methylnaltrexone for opiate-induced constipation, I would largely consider the patient to be opiate jennifer and he is received very large doses of narcotics recently. We have been giving stool softeners forming agents and have given the patient a second dose of methylnaltrexone, methylnaltrexone is not supposed to induce significant withdrawal symptoms. Patient did dislodge his arterial line, it has been discontinued. I have personally spent 45 minutes of critical care time in the direct management of this patient. This is a life/limb threatening event. This includes time spent evaluating patient, direct bedside care, chart review, placing orders, interpretation of diagnostic studies, discussion with consultants, patient, and/or family members regarding treatment decisions, as well as other required patient management activities. This time is exclusive of all separately billable procedures, and teaching time and separate from and in addition to any other critical care service time. Data Medications: Current Inpatient Medications Medications (Trade) Dose Ordered Sig/Nemo Route Start Time Stop Time Status Last Admin Dose Admin Gabapentin (Neurontin Cap) 100 mg BID PO 03/02/18 09:00 04/01/18 08:59 03/08/18 21:04 100 MG Paroxetine HCl (pAXil TAB) 40 mg DAILY PO 03/02/18 09:00 04/01/18 08:59 03/08/18 09:07 40 MG Pravastatin Sodium (Pravachol Tab) 40 mg HS PO 03/02/18 21:00 04/01/18 20:59 03/08/18 21:05 40 MG Ranitidine HCl (zANTac TAB) 300 mg BID PO 03/02/18 09:00 04/01/18 08:59 Future Hold 03/02/18 20:40 300 MG Levalbuterol (Xopenex 0.63 Mg/ 3 Ml Neb) 0.63 mg Q4H PRN INH 03/01/18 23:15 03/31/18 23:14 03/02/18 01:58 0.63 MG Acetaminophen (Tylenol Tab) 1,000 mg Q8H PRN PO 03/01/18 23:45 03/31/18 23:44 Glucose (Glucose 40% Gel) 15-30 GRAMS 15 GRAMS... UD PRN PO 03/02/18 12:45 04/01/18 12:44 Glucose (Glucose Chew Tab) 4-8 Tablets 4 Tabl... UD PRN PO 03/02/18 12:45 04/01/18 12:44 Dextrose (Dextrose 50% 50ML Syringe) 25-50ML 25ML FOR ... UD PRN IV 03/02/18 12:45 04/01/18 12:44 Glucagon (Glucagon Inj) 1 mg UD PRN IM 03/02/18 12:45 04/01/18 12:44 Carbohydrates (Carbohydrates For Hypoglycemia) 15-30 GRAMS 15 grams if BSG 54-69... UD PRN PO 03/02/18 12:45 04/01/18 12:44 Miscellaneous Information (Consult Glycemic Management Pharmacy) 1 ea UD PRN N/A 03/02/18 12:45 04/01/18 12:44 Prednisone (PredniSONE TAB) 30 mg BID PO 03/02/18 21:00 04/01/18 20:59 Future Hold 03/02/18 20:40 30 MG Ondansetron HCl (Zofran Inj) 4 mg Q6H PRN IV 03/02/18 23:45 04/01/18 23:44 Fentanyl Citrate 250 ml @ 0 mls/hr Q0M PRN IV 03/03/18 02:59 03/17/18 02:58 03/09/18 02:56 20 MLS/HR Midazolam HCl 250 ml @ 0 mls/hr Q0M PRN IV 03/03/18 02:59 04/02/18 02:58 03/08/18 12:52 8 MLS/HR Pantoprazole Sodium 40 mg/ Syringe 10 ml @ 5 mls/min DAILY@1100 IV 03/03/18 03:30 04/02/18 03:29 03/08/18 10:08 5 MLS/MIN Ipratropium [place] (Atrovent Hfa Inhaler) 4 puffs QIDR INH 03/03/18 08:00 04/02/18 07:59 03/08/18 19:05 4 PUFFS Levalbuterol (Xopenex Hfa Inhaler) 4 puffs QIDR INH 03/03/18 08:00 04/02/18 07:59 03/08/18 19:05 4 PUFFS Heparin Sodium (Porcine) (Heparin Sq 5000 Unit/0.5ml) 5,000 unit Q8H SQ 03/04/18 09:00 04/03/18 08:59 03/09/18 00:35 5,000 UNIT Heparin Sodium (Porcine) (Heparin 10 Unit/ ml 5 ml Flush) 5 ml PRN PRN FLUSH 03/05/18 23:45 04/04/18 23:44 Enteral Nutritional Formula (Novasource Renal) 1,000 ml UD PRN OG 03/06/18 08:45 04/05/18 08:44 03/08/18 17:08 1,000 ML Methylprednisolone Sodium Succinate 40 mg/Syringe 0.64 ml @ 1.5 mls/min Q8 IV 03/06/18 15:00 04/05/18 14:59 03/09/18 05:58 1.5 MLS/MIN Trimethoprim/ Sulfamethoxazole 368 mg/Dextrose 373 ml @ 250 mls/hr Q6H IV 03/06/18 15:00 03/17/18 14:59 03/09/18 02:37 250 MLS/HR Senna (Senokot Syrup) 8.8 mg BID PO 03/06/18 12:00 04/05/18 11:59 03/08/18 21:04 8.8 MG Magnesium Hydroxide (Milk Of Magnesia Susp) 30 ml BID PO 03/06/18 12:00 04/05/18 11:59 03/08/18 21:05 30 ML Docusate Sodium (coLACE SYRUP) 100 mg BID PO 03/06/18 12:00 04/05/18 11:59 03/08/18 21:05 100 MG Aspirin (Aspirin Chew) 324 mg DAILY PO 03/07/18 09:00 04/05/18 08:59 03/08/18 09:12 324 MG Caspofungin 50 mg/ Sodium Chloride 110 ml @ 110 mls/hr DAILY@0900 IV 03/08/18 09:00 03/19/18 09:59 03/08/18 08:29 110 MLS/HR Insulin Aspart (novoLOG ASPART) SLIDING SCALE G... Q4 SC 03/07/18 16:00 04/06/18 15:59 03/09/18 03:53 3 UNITS Oxycodone HCl (Roxicodone Soln) 15 mg QID PO 03/08/18 13:00 03/22/18 12:59 03/08/18 21:21 15 MG Diazepam (Valium Tab) 15 mg QID PO 03/08/18 13:00 04/07/18 12:59 03/08/18 21:21 15 MG Insulin Glargine (Lantus Solostar Pen) see protocol BID SC 03/08/18 21:00 04/07/18 20:59 Methylnaltrexone [place] (Relistor Inj) 12 mg ONE ONCE SQ 03/09/18 10:30 03/09/18 10:31 Vital Signs: Date Time Temp Pulse Resp B/P (MAP) Pulse Ox O2 Delivery O2 Flow Rate FiO2 03/09/18 06:00 130 29 200/87 (124) 91 Mechanical Ventilator 40 03/09/18 05:03 40 03/09/18 04:00 36.7 70 22 124/64 (84) 91 Mechanical Ventilator 40 03/09/18 04:00 91 Mechanical Ventilator 40 03/09/18 04:00 40 03/09/18 02:34 40 03/09/18 02:00 76 22 126/63 (84) 92 Mechanical Ventilator 40 03/09/18 00:01 37.0 82 22 123/82 (96) 92 Mechanical Ventilator 40 03/08/18 23:59 92 Mechanical Ventilator 40 03/08/18 23:59 40 03/08/18 23:12 40 03/08/18 22:00 115 22 165/86 (112) 92 Mechanical Ventilator 40 03/08/18 20:00 37.2 77 22 121/77 (92) 92 Mechanical Ventilator 40 03/08/18 20:00 40 03/08/18 20:00 92 Mechanical Ventilator 40 03/08/18 19:01 40 03/08/18 18:00 83 22 120/56 (77) 90 Mechanical Ventilator 30 121/73 (89) 03/08/18 17:49 40 03/08/18 17:00 91 22 129/61 (83) 91 Mechanical Ventilator 30 03/08/18 16:00 30 03/08/18 16:00 37.1 109 22 159/80 (106) 89 Mechanical Ventilator 30 03/08/18 16:00 89 Mechanical Ventilator 30 03/08/18 15:00 125 21 183/90 (121) 96 Mechanical Ventilator 30 03/08/18 14:39 40 03/08/18 14:00 108 22 149/73 (98) 90 Mechanical Ventilator 30 03/08/18 13:00 132 20 190/93 (125) 85 Mechanical Ventilator 30 03/08/18 12:30 30 03/08/18 12:30 93 Mechanical Ventilator 30 03/08/18 12:00 92 22 133/62 (85) 92 Mechanical Ventilator 30 03/08/18 11:29 30 03/08/18 11:00 37.1 96 22 138/65 (89) 93 Mechanical Ventilator 40 03/08/18 10:00 100 22 154/73 (100) 94 Mechanical Ventilator 40 152/88 (109) 03/08/18 09:00 100 22 157/78 (104) 88 Mechanical Ventilator 40 03/08/18 08:30 40 03/08/18 08:00 37.1 114 26 169/88 (115) 90 Mechanical Ventilator 30 03/08/18 08:00 40 03/08/18 08:00 90 Mechanical Ventilator 40 03/08/18 08:00 Mechanical Ventilator 30 03/08/18 07:31 30 Laboratory Results: Last 24 Hours Test 03/08/18 08:57 03/08/18 11:56 03/08/18 15:29 03/08/18 17:30 Total Bilirubin 0.4 mg/dl Direct Bilirubin 0.1 mg/dl Aspartate Amino Transf (AST/SGOT) 24 U/L Alanine Aminotransferase (ALT/SGPT) 49 U/L Alkaline Phosphatase 59 U/L Total Protein 6.6 gm/dl Albumin 2.8 gm/dl Bedside Glucose 182 mg/dl 128 mg/dl Blood Gas Sample Site Art Line Bedside Blood Gas pH (LAB) 7.47 Bedside Blood Gas pCO2 (LAB) 55 mmHg Bedside Blood Gas pO2 (LAB) 76 mmHg Bedside Blood Gas HCO3 (LAB) 40 meq/L Bedside Blood Gas Total CO2 > 40 mEq/l Bedside Blood Gas Base Excess (LAB) 16.0 meq/L Bedside Blood Gas O2 Saturation 95.0 % [place] Test NA Oxygen Delivery Device Ventilator Bedside Oxygen Rate (breaths/min) 22 Blood Gas Minute Ventilation 8.8 Bedside FiO2 40 % Blood Gas Tidal Volume 400 Blood Gas PEEP 10 Test 03/08/18 21:01 03/09/18 00:02 03/09/18 03:49 03/09/18 04:56 Bedside Glucose 89 mg/dl 137 mg/dl 167 mg/dl Sodium Level 132 mmol/L Potassium Level 5.3 mmol/L Chloride Level 92 mmol/L Carbon Dioxide Level 34 mmol/L Anion Gap 6.0 mmol/L Blood Urea Nitrogen 36 mg/dl Creatinine 1.09 mg/dl Est Creatinine Clear Calc Drug Dose 93.3 ml/min Estimated GFR () 89.3 Estimated GFR (Non- 77.1 BUN/Creatinine Ratio 33.1 Random Glucose 138 mg/dl Calcium Level 8.4 mg/dl Phosphorus Level 3.4 mg/dl Magnesium Level 2.6 mg/dl Total Bilirubin 0.2 mg/dl Direct Bilirubin 0.1 mg/dl Aspartate Amino Transf (AST/SGOT) 24 U/L Alanine Aminotransferase (ALT/SGPT) 47 U/L Alkaline Phosphatase 56 U/L Total Protein 5.8 gm/dl Albumin 2.5 gm/dl Lipase 229 U/L Test 03/09/18 04:58 03/09/18 05:46 03/09/18 05:49 Blood Gas Sample Site Art Line Bedside Blood Gas pH (LAB) 7.48 Bedside Blood Gas pCO2 (LAB) 50 mmHg Bedside Blood Gas pO2 (LAB) 60 mmHg Bedside Blood Gas HCO3 (LAB) 37 meq/L Bedside Blood Gas Total CO2 39 mEq/l Bedside Blood Gas Base Excess (LAB) 14.0 meq/L Bedside Blood Gas O2 Saturation 92.0 % [place] Test NA Oxygen Delivery Device Ventilator Bedside Oxygen Rate (breaths/min) 22 Blood Gas Minute Ventilation 8.8 Bedside FiO2 40 % Blood Gas Tidal Volume 400 Blood Gas PEEP 10 White Blood Count 14.36 K/uL Red Blood Count 3.10 M/uL Hemoglobin 9.7 g/dL Hematocrit 29.4 % Mean Corpuscular Volume 94.8 fL Mean Corpuscular Hemoglobin 31.3 pg Mean Corpuscular Hemoglobin Concent 33.0 g/dl Platelet Count 177 K/uL Mean Platelet Volume 9.3 fL Neutrophils (%) (Auto) 74.5 % Lymphocytes (%) (Auto) 14.1 % Monocytes (%) (Auto) 7.6 % Eosinophils (%) (Auto) 0.1 % Basophils (%) (Auto) 0.1 % Neutrophils # (Auto) 10.71 K/uL Lymphocytes # (Auto) 2.02 K/uL Monocytes # (Auto) 1.09 K/uL Eosinophils # (Auto) 0.01 K/uL Basophils # (Auto) 0.02 K/uL RDW Standard Deviation 48.0 fL RDW Coefficient of Variation 13.8 % Immature Granulocyte % (Auto) 3.6 % Immature Granulocyte # (Auto) 0.51 K/uL Nucleated RBC Absolute Count (auto) 0.06 K/uL Nucleated Red Blood Cells % 0.4 % Prothrombin Time 10.5 SECONDS Prothromb Time International Ratio 1.0 Resident Tracking Resident Involvement: Resident Care Provided Care Provided: Adult Hospital Medicine
--- NOTE | 2018-03-09 10:45 | Progress Note ---
Internal Med Progress Note Date of Service: Mar 09, 2018. Provider Documentation: SUBJECTIVE: Continues to be on mechanical ventilation and remains intubated. Heart rate 88 bpm, blood pressure 185/118 via arterial line. Patient is sedated. Has feeding tube, Has willams. Apparently patient had hematuria. Urine in willams at present appears to be dark orange OBJECTIVE: General- as above Head- atraumatic Neck- supple, no JVD Lungs- on mechanical ventilation Heart- regular rhythm Abdomen- soft, bowel sounds present Extremities- lower extremity pulses intact Neuro- sedated ASSESSMENT & PLAN: 52-year-old male with a history of asthma & COPD who was admitted to the ICU for acute on chronic respiratory failure with noted hypoxia and respiratory distress. He was unable to tolerate BiPAP and has been maintained on 5L of oxygen via oxymask. 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 currently still on mechanical ventilation and remains intubated Resp: Hypersensitivity Pneumonitis/ARDS vs pneumonia -ARDS protocol ventilation - methylprednisone tapering - xopenex ID: - was previously on vancomycin and azithromycin - Blood Cultures 03/01/18 are negative - currently on Zosyn IV (last dose on 03/08/18, bactrim IV and casopofungin IV -karla albicans in sputum from 03/04/18, on caspofungin treatment - ICU continuing antifungal because of lot of growth as per their discussion with pathology and caspofungin to be continued -BAL cultures negative, last dose of Zosyn given on 03/08/18 -urinary legionella negative, mycoplasma IgM is negative, mycoplasma IgG is equivocal -given LDH elevated at 538, on bactrim 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 - HIV results negative Neuro: Sedation - sedated with Versed, weaning down -agitation likely secondary to opioid withdrawal, clonidine and roxicodone Pain - continue fentanyl prn for pain Chronic Pain - Continue Gabapentin Depression - Continue Paxil Cardiovascular: -aspirin 324 mg daily -ECHO showed * Normal LV chamber size and wall thickness. * Normal LV systolic function, EF 65-70%. * No segmental left ventricular wall motion abnormalities are noted. * Grade I diastolic dysfunction. * Poorly visualized RV. * No significant valvular pathology. Fluids/Renal/Electrolytes -Acute Kidney injury improving as creatinine downtrending -has received Lasix to prevent fluid overload, expect Lasix to help resolve hypertension by removing of volume -high normal potassium vs hyperkalemia, monitor on telemetry, received calcium gluconate GI/Nutrition: -enteral feeds -GERD/GI prophylaxis: Pantoprazole 40mg IV daily -KUB did not show evidence of bowel obstruction -bowel regimen - LFTs checked today and WNL Heme: -Hgb stable at 9.7, MCV normal - Plts 177 - bilateral venous doppler negative for DVT Endocrine: - HbA1c = 5.9% - Lantus 20 units BID and ISS - blood sugar = 89-167 Access: Right triple lumen IJ and right radial A line DVT Prophylaxis: 5,000 units heparin q8h Code status: FULL DISPOSITION Continue monitor in the ICU Vital Signs: Date Time Temp Pulse Resp B/P (MAP) Pulse Ox O2 Delivery O2 Flow Rate FiO2 03/09/18 10:00 110 19 185/118 (140) 90 Mechanical Ventilator 40 03/09/18 09:31 134 27 160/120 (133) 85 Mechanical Ventilator 40 03/09/18 09:00 131 25 182/105 (130) 89 Mechanical Ventilator 40 03/09/18 08:30 118 22 172/99 (123) 90 Mechanical Ventilator 40 03/09/18 08:15 130 22 182/109 (133) 93 Mechanical Ventilator 40 03/09/18 08:00 Mechanical Ventilator 40 03/09/18 08:00 90 Mechanical Ventilator 40 03/09/18 08:00 40 03/09/18 08:00 37.4 134 22 171/116 (134) 93 Mechanical Ventilator 40 03/09/18 07:55 128 22 194/115 (141) 95 Mechanical Ventilator 40 03/09/18 07:50 128 22 183/118 (139) 92 Mechanical Ventilator 40 03/09/18 07:46 129 22 178/113 (134) 93 Mechanical Ventilator 40 03/09/18 07:37 40 03/09/18 07:00 148 20 176/96 (122) 94 Mechanical Ventilator 40 03/09/18 06:00 130 29 200/87 (124) 91 Mechanical Ventilator 40 03/09/18 05:03 40 03/09/18 04:00 36.7 70 22 124/64 (84) 91 Mechanical Ventilator 40 03/09/18 04:00 91 Mechanical Ventilator 40 03/09/18 04:00 40 6/14/18 02:34 40 03/09/18 02:00 76 22 126/63 (84) 92 Mechanical Ventilator 40 03/09/18 00:01 37.0 82 22 123/82 (96) 92 Mechanical Ventilator 40 03/08/18 23:59 92 Mechanical Ventilator 40 03/08/18 23:59 40 03/08/18 23:12 40 03/08/18 22:00 115 22 165/86 (112) 92 Mechanical Ventilator 40 03/08/18 20:00 37.2 77 22 121/77 (92) 92 Mechanical Ventilator 40 03/08/18 20:00 40 03/08/18 20:00 92 Mechanical Ventilator 40 03/08/18 19:01 40 03/08/18 18:00 83 22 120/56 (77) 90 Mechanical Ventilator 30 121/73 (89) 03/08/18 17:49 40 03/08/18 17:00 91 22 129/61 (83) 91 Mechanical Ventilator 30 03/08/18 16:00 30 03/08/18 16:00 37.1 109 22 159/80 (106) 89 Mechanical Ventilator 30 03/08/18 16:00 89 Mechanical Ventilator 30 03/08/18 15:00 125 21 183/90 (121) 96 Mechanical Ventilator 30 03/08/18 14:39 40 03/08/18 14:00 108 22 149/73 (98) 90 Mechanical Ventilator 30 03/08/18 13:00 132 20 190/93 (125) 85 Mechanical Ventilator 30 03/08/18 12:30 30 03/08/18 12:30 93 Mechanical Ventilator 30 03/08/18 12:00 92 22 133/62 (85) 92 Mechanical Ventilator 30 03/08/18 11:29 30 03/08/18 11:00 37.1 96 22 138/65 (89) 93 Mechanical Ventilator 40 Lab Results: Results Past 24 Hours Test 03/08/18 11:56 03/08/18 15:29 03/08/18 17:30 03/08/18 21:01 Range/Units Bedside Glucose 182 128 89 70-99 mg/dl Blood Gas Sample Site Art Line Bedside Blood Gas pH (LAB) 7.47 7.35-7.45 Bedside Blood Gas pCO2 (LAB) 55 35-46 mmHg Bedside Blood Gas pO2 (LAB) 76 80-95 mmHg Bedside Blood Gas HCO3 (LAB) 40 19-24 meq/L Bedside Blood Gas Total CO2 > 40 24-31 mEq/l Bedside Blood Gas Base Excess (LAB) 16.0 -9-1.8 meq/L Bedside Blood Gas O2 Saturation 95.0 90-95 % [place] Test NA Oxygen Delivery Device Ventilator Bedside Oxygen Rate (breaths/min) 22 Blood Gas Minute Ventilation 8.8 Bedside FiO2 40 % Blood Gas Tidal Volume 400 Blood Gas PEEP 10 Test 03/09/18 00:02 03/09/18 03:49 03/09/18 04:56 03/09/18 04:58 Range/Units Bedside Glucose 137 167 70-99 mg/dl Sodium Level 132 136-145 mmol/L Potassium Level 5.3 3.5-5.1 mmol/L Chloride Level 92 98-107 mmol/L Carbon Dioxide Level 34 21-32 mmol/L Anion Gap 6.0 3-11 mmol/L Blood Urea Nitrogen 36 7-18 mg/dl Creatinine 1.09 0.60-1.40 mg/dl Est Creatinine Clear Calc Drug Dose 93.3 ml/min Estimated GFR () 89.3 Estimated GFR (Non- 77.1 BUN/Creatinine Ratio 33.1 10-20 Random Glucose 138 70-99 mg/dl Calcium Level 8.4 8.5-10.1 mg/dl Phosphorus Level 3.4 2.5-4.9 mg/dl Magnesium Level 2.6 1.8-2.4 mg/dl Total Bilirubin 0.2 0.2-1 mg/dl Direct Bilirubin 0.1 0-0.2 mg/dl Aspartate Amino Transf (AST/SGOT) 24 15-37 U/L Alanine Aminotransferase (ALT/SGPT) 47 12-78 U/L Alkaline Phosphatase 56 45-117 U/L Total Protein 5.8 6.4-8.2 gm/dl Albumin 2.5 3.4-5.0 gm/dl Lipase 229 73-393 U/L Blood Gas Sample Site Art Line Bedside Blood Gas pH (LAB) 7.48 7.35-7.45 Bedside Blood Gas pCO2 (LAB) 50 35-46 mmHg Bedside Blood Gas pO2 (LAB) 60 80-95 mmHg Bedside Blood Gas HCO3 (LAB) 37 19-24 meq/L Bedside Blood Gas Total CO2 39 24-31 mEq/l Bedside Blood Gas Base Excess (LAB) 14.0 -9-1.8 meq/L Bedside Blood Gas O2 Saturation 92.0 90-95 % [place] Test NA Oxygen Delivery Device Ventilator Bedside Oxygen Rate (breaths/min) 22 Blood Gas Minute Ventilation 8.8 Bedside FiO2 40 % Blood Gas Tidal Volume 400 Blood Gas PEEP 10 Test 03/09/18 05:46 03/09/18 05:49 Range/Units White Blood Count 14.36 4.8-10.8 K/uL Red Blood Count 3.10 4.7-6.1 M/uL Hemoglobin 9.7 14.0-18.0 g/dL Hematocrit 29.4 42-52 % Mean Corpuscular Volume 94.8 80-100 fL Mean Corpuscular Hemoglobin 31.3 25-34 pg Mean Corpuscular Hemoglobin Concent 33.0 32-36 g/dl Platelet Count 177 130-400 K/uL Mean Platelet Volume 9.3 7.4-10.4 fL Neutrophils (%) (Auto) 74.5 % Lymphocytes (%) (Auto) 14.1 % Monocytes (%) (Auto) 7.6 % Eosinophils (%) (Auto) 0.1 % Basophils (%) (Auto) 0.1 % Neutrophils # (Auto) 10.71 1.4-6.5 K/uL Lymphocytes # (Auto) 2.02 1.2-3.4 K/uL Monocytes # (Auto) 1.09 0.11-0.59 K/uL Eosinophils # (Auto) 0.01 0-0.5 K/uL Basophils # (Auto) 0.02 0-0.2 K/uL RDW Standard Deviation 48.0 36.4-46.3 fL RDW Coefficient of Variation 13.8 11.5-14.5 % Immature Granulocyte % (Auto) 3.6 % Immature Granulocyte # (Auto) 0.51 0.00-0.02 K/uL Nucleated RBC Absolute Count (auto) 0.06 0-0 K/uL Nucleated Red Blood Cells % 0.4 % Prothrombin Time 10.5 9.0-12.0 SECONDS Prothromb Time International Ratio 1.0 0.9-1.1 Microbiology Results 03/09/18 MRSA DNA Surveillance Screen - Final, Complete Specimen Negative for MRSA by DNA Probe
--- NOTE | 2018-03-09 10:47 | Pharmacy Progress Note ---
Glycemic Control Progress Note Date of Service Mar 09, 2018. Scope Glycemic Pharmacist consulted for glycemic control to write orders per [facility] inpatient glycemic control protocol. Objective Accuchecks BSG (last 24hrs): Test 03/08/18 11:56 03/08/18 15:29 03/08/18 21:01 03/09/18 00:02 Bedside Glucose 182 mg/dl (70-99) 128 mg/dl (70-99) 89 mg/dl (70-99) 137 mg/dl (70-99) Test 03/09/18 03:49 03/09/18 04:56 Bedside Glucose 167 mg/dl (70-99) Random Glucose 138 mg/dl (70-99) HbA1c: Test 03/08/18 04:32 Hemoglobin A1c 5.9 % (4.5-5.6) H Recent Pertinent Medications The patient is currently receiving: * Lantus 20 units SC 03/08 AM * Bolus insulin * NovoLog per scale q4h, starting at 1600 * Goal Range: Low 110 mg/dL - High 150 mg/dL * Correction Factor: 20 mg/dL/unit * Nutritional / Prandial insulin per carb ratio of 1 unit per 6 grams CHO consumed Outpatient Anti-Diabetic Meds None Assessment & Plan ASSESSMENT: * 52 yo M on no diabetes medications at home with *previous* A1c in November suggestive of possible T2DM (A1c this admit decreased to pre-diabetes range) currently mechanically ventilated in ICU 2nd acute on chronic respiratory failure * Steroids tapering from methylprednisolone 40 to 30 mg IV q8h today (possible increased sensitivity). However, tubefeeds advanced from 20 to 30 mL/hr ( increased CHO administration) * Unclear if BSG's will be affected by above changes * Will slightly decrease Lantus this AM for lower BSG ([address] [place] [address] held ~0730 -1000 for paralytic administration) and tapering steroids - OK to give supplemental Lantus tonight for BSG >160 mg/dL * Will rely on same CHO ratio used prior - Novolog administration will increase proportional to CHO administration PLAN FOR INPATIENT GLYCEMIC CONTROL: * Decrease Lantus qAM based on BSG as follows: * 15 units for BSG less than 160 mg/dL * 20 units for BSG greater than 160 mg/dL * Add Lantus qPM based on BSG as follows: * 0 units for BSG less than 160 mg/dL * 10 units for BSG greater than 160 mg/dL * Bolus insulin * NovoLog per scale q4h * Goal Range: Low 110 mg/dL - High 150 mg/dL * Correction Factor: 20 mg/dL/unit * Nutritional / Prandial insulin per carb ratio of 1 unit per 6 grams CHO consumed RECOMMENDATIONS FOR DISCHARGE: * Follow-up as outpatient for A1c of 5.9% (suggestive of pre-diabetes) with recent history of A1c of 6.5% (suggestive of T2DM) * Please note that the plan above was derived based on current level of insulin resistance and hospital stress. These recommendations are appropriate for inpatient admission only. Plan of care upon discharge will need to be reassessed to avoid potential outpatient hypo/hyperglycemia. Thank you.
[2018-03-09] MEDS: PANTOprazole INJ 40 MG in SYRINGE 0 ML IV SCH (12:10)
[2018-03-09] MEDS: METHYLPREDNISOLONE IV 30 MG in SYRINGE 0 ML IV SCH ×2 (13:12→21:42)
[2018-03-09] MEDS: OXYCODONE HCL 20 MG/1 ML UDP PO SCH ×3 (13:16→23:46)
[2018-03-09] MEDS: MIDAZOLAM 125MG/250ML D5W 250 ML IV PRN (15:46)
[2018-03-09] MEDS: NOVASOURCE RENAL 1000ML BAG OG PRN (16:43)
[2018-03-09] MEDS: PRAVASTATIN SOD 40 MG TAB PO SCH (20:37)
[2018-03-10] VITALS (21 sets, daily range): BP systolic 90–174; BP diastolic 55–133; PULSE 72–126; TEMP 37.1–37.9; O2SAT 83–96
[2018-03-10] MEDS: HEPARIN SOD 5000 UNIT/0.5 ML CARP SQ SCH ×3 (02:22→16:32)
[2018-03-10] MEDS ORDERED: NURSING VERBAL MED ORDER ONE ×4 (02:30→19:15)
[2018-03-10] MEDS: DEXTROSE 5% IV SCH ×2 (02:57→08:51)
[2018-03-10] MEDS: TRIMETH IV SCH ×2 (02:57→08:51)
[2018-03-10] MEDS: SULFA IV SCH ×2 (02:57→08:51)
[2018-03-10] MEDS: FENTANYL 1250MCG/250ML NSS 250 ML IV PRN ×2 (04:27→16:37)
[2018-03-10] MEDS: INSULIN ASPART 100 UNITS/ML 3 ML PEN SC SCH ×6 (04:48→23:54)
[2018-03-10 04:55] LABS: BASO % 0.2 %; BASO ABS # 0.04 K/uL (0-0.2); HEMATOCRIT 34.2 % (42-52); HEMOGLOBIN 11.3 g/dL (14.0-18.0); IG# 0.39 K/uL (0.00-0.02); LYMPH % 11.3 %; LYMPH ABS # 1.86 K/uL (1.2-3.4); MEAN CELL VOLUME 95.8 fL (80-100); MEAN CORPUSCULAR HEMOGLOBIN 31.7 pg (25-34); MEAN PLATELET VOLUME 9.6 fL (7.4-10.4); MONO % 9.6 %; MONO ABS # 1.57 K/uL (0.11-0.59); NEUT % 76.5 %; NEUT ABS # 12.57 K/uL (1.4-6.5); NUCLEATED RED BLOOD CELL ABS 0.17 K/uL (0-0); PLATELET COUNT 207 K/uL (130-400); RED CELL DISTRIBUTION WIDTH CV 13.7 % (11.5-14.5); RED CELL DISTRIBUTION WIDTH SD 47.5 fL (36.4-46.3); WHITE BLOOD COUNT 16.43 K/uL (4.8-10.8)
[2018-03-10 05:22] LABS: CALCIUM 8.8 mg/dl (8.5-10.1); CREATININE 1.28 mg/dl (0.60-1.40); PHOSPHORUS 4.4 mg/dl (2.5-4.9); POTASSIUM 5.7 mmol/L (3.5-5.1)
--- NOTE | 2018-03-10 05:34 | Critical Care Progress Note ---
Critical Care Progress Note Date of Service Mar 10, 2018. ICU Day ICU Day Number: [address] [place] Subjective Patient remains sedated with fentanyl and Versed. There is been no adjustments to his ventilatory settings overnight. Patient did do well for a short period of time with oxycodone and Valium. He had multiple stools throughout the night requiring rolling of the patient which did agitate him. He did receive a single dose of 1 mg IV Versed and 2 separate 50 mg IV fentanyl doses for increasing agitation. Otherwise, the patient has had no significant changes overnight. Remains with scant pinkish urine output from Campa Catheter. Objective VITAL SIGNS - Vital signs and nursing notes were reviewed. GENERAL - 52-year-old male appearing his stated age. Intubated and sedated. Awakens and agitates easily. SKIN - Multiple areas of ecchymosis noted throughout. HEAD - NC/AT. EYES - Dilated pupils bilaterally. MOUTH/OROPHARYNX - Endotracheal tube in place. NECK - RIGHT IJ CVL in place. LUNGS - Chest wall symmetric without accessory muscle use, intercostals retractions, or central cyanosis. Coarse breath sounds bilaterally. CARDIAC - RRR with S1/S2. No murmur, rubs, or gallops appreciated. ABDOMEN - Abdominal contour protuberant without pulsations or visible masses. BS normoactive all four quadrants. EXTREMITIES - No clubbing or peripheral cyanosis. No pretibial edema present. +3 /5 radial and dorsalis pedis pulses palpated throughout. Strength appears intact bilaterally when patient becomes agitated. NEUROLOGIC - Unable to assess secondary to sedation. Assessment & Plan Reason Critically Ill: Mr. Winchester is a 52-year-old male with a history of asthma & COPD who was admitted to the ICU for acute on chronic respiratory failure with noted hypoxia and respiratory distress. He was unable to tolerate BiPAP. He subsequently decompensated on 03/03 scarrer, and was intubated and placed on a mechanical ventilator. Mr. Winchester has been difficult to wean off of his sedatives, and his respiratory status has remained unchanged since yesterday. He may benefit from placement of a trach if, by Tuesday, he has not made much progress. Neuro - * CAM ICU: Unable to assess secondary to RASS -4 * Sedation: Versed 4mg/hr * Required intermittent boluses overnight. * PRN Valium added as well. * Pain: Fentanyl gtt at 100mcg/hr. * Required occasional boluses overnight. * PRN oxycodone which has helped. * Chronic Pain: * Gabapentin * Depression: * Paxil Cardiac - * Continue home statin and ASA * ECHO showed EF = 65-70% w/grade 1 diastolic dysfunction. No wall motion abnormalities. * Tachycardia has improved with initiation of propranolol. * EKG with QTc of 427 Respiratory - * Hypersensitivity Pneumonitis/ARDS: * Currently intubated and requiring mechanical ventilation. * Appreciate pulmonary consult for ventilator management. * Continue Methylpred wean. * Daily CXR * Inhalers scheduled. * ??PJP --> Continue Bactrim. GI - * Tube Feeds (Novasource Renal): * 30mL/hr * GERD - Protonix * Began stooling overnight. * Continue q72hr LFT checks 2/2 Caspofungin use. RENAL/LYTES - * Continues to diurese. * Scheduled IV Lasix. * Continue to follow lytes - replace appropriately. * Appreciate Nephro consult. - * Campa in place. * Strict I&Os * Continues with pinkish urine. Continues to improve. ENDO - * Requiring Lantus coverage. * Anticipate improvement as steroid taper decreases. HEME - * Stable H&H. * Will trend. ID - * Suspected PJP: * Continue course of Bactrim. * Fungal oral secretions w/ c/o pna: * Caspofungin LINES/IV ACCESS - * RIGHT IJ CVL * PIVs * Campa Catheter * Endotracheal Tube DVT PROPHYLAXIS - * sq Heparin q8h I have personally spent 35 minutes of critical care time in the direct management of this patient. This is a life/limb threatening event. This includes time spent evaluating patient, direct bedside care, chart review, placing orders, interpretation of diagnostic studies, discussion with consultants, patient, and family members, as well as other required patient management activities. This time is exclusive of all separately billable procedures, and teaching time and separate from and in addition to any other critical care service time. Thank you for this consultation allow us to be part of this patient's care. Please refer to my attending physician's documentation for any further recommendations. I have personally reviewed the documentation and discussed the patient via telephone. I agree with assessment and plan of Steve Rossi PA-C. Consults & Procedures Consultants: ROSIE Pulm Procedures: RIGHT IJ CVL RIGHT Rad Art Line Bronch Data Medications: Current Inpatient Medications Medications (Trade) Dose Ordered Sig/Nemo Route Start Time Stop Time Status Last Admin Dose Admin Gabapentin (Neurontin Cap) 100 mg BID PO 03/02/18 09:00 04/01/18 08:59 03/09/18 20:36 100 MG Paroxetine HCl (pAXil TAB) 40 mg DAILY PO 03/02/18 09:00 04/01/18 08:59 03/09/18 09:02 40 MG Pravastatin Sodium (Pravachol Tab) 40 mg HS PO 03/02/18 21:00 04/01/18 20:59 03/09/18 20:37 40 MG Ranitidine HCl (zANTac TAB) 300 mg BID PO 03/02/18 09:00 04/01/18 08:59 Future Hold 03/02/18 20:40 300 MG Levalbuterol (Xopenex 0.63 Mg/ 3 Ml Neb) 0.63 mg Q4H PRN INH 03/01/18 23:15 03/31/18 23:14 03/02/18 01:58 0.63 MG Acetaminophen (Tylenol Tab) 1,000 mg Q8H PRN PO 03/01/18 23:45 03/31/18 23:44 Glucose (Glucose 40% Gel) 15-30 GRAMS 15 GRAMS... UD PRN PO 03/02/18 12:45 04/01/18 12:44 Glucose (Glucose Chew Tab) 4-8 Tablets 4 Tabl... UD PRN PO 03/02/18 12:45 04/01/18 12:44 Dextrose (Dextrose 50% 50ML Syringe) 25-50ML 25ML FOR ... UD PRN IV 03/02/18 12:45 04/01/18 12:44 Glucagon (Glucagon Inj) 1 mg UD PRN IM 03/02/18 12:45 04/01/18 12:44 Carbohydrates (Carbohydrates For Hypoglycemia) 15-30 GRAMS 15 grams if BSG 54-69... UD PRN PO 03/02/18 12:45 04/01/18 12:44 Miscellaneous Information (Consult Glycemic Management Pharmacy) 1 ea UD PRN N/A 03/02/18 12:45 04/01/18 12:44 Prednisone (PredniSONE TAB) 30 mg BID PO 03/02/18 21:00 04/01/18 20:59 Future Hold 03/02/18 20:40 30 MG Ondansetron HCl (Zofran Inj) 4 mg Q6H PRN IV 03/02/18 23:45 04/01/18 23:44 Fentanyl Citrate 250 ml @ 0 mls/hr Q0M PRN IV 03/03/18 02:59 03/17/18 02:58 03/10/18 04:27 8 MLS/HR Midazolam HCl 250 ml @ 0 mls/hr Q0M PRN IV 03/03/18 02:59 04/02/18 02:58 03/09/18 15:46 8 MLS/HR Pantoprazole Sodium 40 mg/ Syringe 10 ml @ 5 mls/min DAILY@1100 IV 03/03/18 03:30 04/02/18 03:29 03/09/18 12:10 5 MLS/MIN Ipratropium [place] (Atrovent Hfa Inhaler) 4 puffs QIDR INH 03/03/18 08:00 04/02/18 07:59 03/09/18 18:58 4 PUFFS Levalbuterol (Xopenex Hfa Inhaler) 4 puffs QIDR INH 03/03/18 08:00 04/02/18 07:59 03/09/18 18:58 4 PUFFS Heparin Sodium (Porcine) (Heparin Sq 5000 Unit/0.5ml) 5,000 unit Q8H SQ 03/04/18 09:00 04/03/18 08:59 03/10/18 02:22 5,000 UNIT Heparin Sodium (Porcine) (Heparin 10 Unit/ ml 5 ml Flush) 5 ml PRN PRN FLUSH 03/05/18 23:45 04/04/18 23:44 Enteral Nutritional Formula (Novasource Renal) 1,000 ml UD PRN OG 03/06/18 08:45 04/05/18 08:44 03/09/18 16:43 1,000 ML Trimethoprim/ Sulfamethoxazole 368 mg/Dextrose 373 ml @ 250 mls/hr Q6H IV 03/06/18 15:00 03/17/18 14:59 03/10/18 02:57 250 MLS/HR Magnesium Hydroxide (Milk Of Magnesia Susp) 30 ml BID PO 03/06/18 12:00 04/05/18 11:59 03/09/18 20:33 30 ML Docusate Sodium (coLACE SYRUP) 100 mg BID PO 03/06/18 12:00 04/05/18 11:59 03/09/18 20:35 100 MG Caspofungin 50 mg/ Sodium Chloride 110 ml @ 110 mls/hr DAILY@0900 IV 03/08/18 09:00 03/19/18 09:59 03/09/18 09:17 110 MLS/HR Insulin Aspart (novoLOG ASPART) SLIDING SCALE G... Q4 SC 03/07/18 16:00 04/06/18 15:59 03/09/18 23:53 2 UNITS Diazepam (Valium Tab) 15 mg QID PO 03/08/18 13:00 04/07/18 12:59 03/09/18 20:32 15 MG Insulin Glargine (Lantus Solostar Pen) QAM@0800 GA 03/09/18 08:00 04/08/18 07:59 03/09/18 09:14 15 UNITS Insulin Glargine (Lantus Solostar Pen) QPM@2000 GA 03/09/18 20:00 04/08/18 19:59 Propranolol HCl (Inderal Tab) 10 mg QID PO 03/09/18 09:00 04/08/18 08:59 03/09/18 20:36 10 MG Senna (Senokot Syrup) 17.6 mg BID PO 03/09/18 09:00 04/08/18 08:59 03/09/18 20:33 17.6 MG Methylprednisolone Sodium Succinate 30 mg/Syringe 0.48 ml @ 1.5 mls/min Q8 IV 03/09/18 14:00 04/08/18 13:59 03/09/18 21:42 1.5 MLS/MIN Furosemide 40 mg/ Syringe 4 ml @ 4 mls/min QAM IV 03/09/18 09:00 03/15/18 09:00 03/09/18 08:59 4 MLS/MIN Aspirin (Aspirin Chew) 81 mg QAM PO 03/09/18 09:00 04/08/18 08:59 03/09/18 09:00 81 MG Clonidine HCl (Catapres Tab) 0.1 mg TID PO 03/09/18 09:00 04/08/18 08:59 03/09/18 20:35 0.1 MG Oxycodone HCl (Roxicodone Intensol Soln) 20 mg Q6 PO 03/09/18 14:00 03/23/18 13:59 03/09/18 23:46 20 MG Vital Signs: Date Time Temp Pulse Resp B/P (MAP) Pulse Ox O2 Delivery O2 Flow Rate FiO2 03/10/18 04:00 Mechanical Ventilator 40 03/10/18 04:00 40 03/10/18 02:00 72 22 92/59 (70) 91 Mechanical Ventilator 40 03/10/18 00:01 37.4 98 19 159/115 (130) 92 Mechanical Ventilator 40 03/09/18 23:59 40 03/09/18 23:59 Mechanical Ventilator 40 03/09/18 22:53 40 03/09/18 22:00 89 24 158/102 (120) 89 03/09/18 21:01 95 22 181/113 (135) 100 03/09/18 20:30 76 22 130/81 (97) 90 03/09/18 20:29 91 22 124/82 (96) 87 03/09/18 20:00 40 03/09/18 20:00 37.3 70 22 95/61 (72) 89 Mechanical Ventilator 40 03/09/18 20:00 91 Mechanical Ventilator 40 03/09/18 19:30 73 22 104/66 (79) 89 03/09/18 19:01 40 03/09/18 19:00 77 22 103/66 (78) 89 03/09/18 18:30 108 22 116/72 (87) 84 03/09/18 18:01 111 14 179/123 (141) 95 03/09/18 18:00 107 17 84 03/09/18 17:10 40 03/09/18 17:00 83 22 138/80 (99) 88 Mechanical Ventilator 40 03/09/18 16:00 91 Mechanical Ventilator 40 03/09/18 16:00 40 03/09/18 16:00 91 22 124/77 (93) 91 Mechanical Ventilator 40 03/09/18 15:30 114 21 169/105 (126) 95 Mechanical Ventilator 40 03/09/18 15:14 37.4 121 13 121/117 (118) 89 Mechanical Ventilator 40 03/09/18 14:57 40 03/09/18 14:25 40 03/09/18 14:00 75 22 107/63 (78) 90 Mechanical Ventilator 40 03/09/18 13:30 74 22 118/70 (86) 91 Mechanical Ventilator 40 03/09/18 13:00 75 22 100/62 (75) 90 Mechanical Ventilator 40 03/09/18 12:00 40 03/09/18 12:00 90 Mechanical Ventilator 40 03/09/18 12:00 37.4 80 22 115/72 (86) 90 Mechanical Ventilator 40 03/09/18 11:15 40 03/09/18 11:00 83 22 123/75 (91) 92 Mechanical Ventilator 40 03/09/18 10:00 110 19 185/118 (140) 90 Mechanical Ventilator 40 03/09/18 09:31 134 27 160/120 (133) 85 Mechanical Ventilator 40 03/09/18 09:00 131 25 182/105 (130) 89 Mechanical Ventilator 40 03/09/18 08:30 118 22 172/99 (123) 90 Mechanical Ventilator 40 03/09/18 08:15 130 22 182/109 (133) 93 Mechanical Ventilator 40 03/09/18 08:00 Mechanical Ventilator 40 03/09/18 08:00 90 Mechanical Ventilator 40 03/09/18 08:00 40 03/09/18 08:00 37.4 134 22 171/116 (134) 93 Mechanical Ventilator 40 03/09/18 07:55 128 22 194/115 (141) 95 Mechanical Ventilator 40 03/09/18 07:50 128 22 183/118 (139) 92 Mechanical Ventilator 40 03/09/18 07:46 129 22 178/113 (134) 93 Mechanical Ventilator 40 03/09/18 07:37 40 03/09/18 07:00 148 20 176/96 (122) 94 Mechanical Ventilator 40 03/09/18 06:00 130 29 200/87 (124) 91 Mechanical Ventilator 40 03/09/18 05:03 40 Laboratory Results: Last 24 Hours Test 03/09/18 04:58 03/09/18 05:46 03/09/18 05:49 03/09/18 07:43 Blood Gas Sample Site Art Line Bedside Blood Gas pH (LAB) 7.48 Bedside Blood Gas pCO2 (LAB) 50 mmHg Bedside Blood Gas pO2 (LAB) 60 mmHg Bedside Blood Gas HCO3 (LAB) 37 meq/L Bedside Blood Gas Total CO2 39 mEq/l Bedside Blood Gas Base Excess (LAB) 14.0 meq/L Bedside Blood Gas O2 Saturation 92.0 % [place] Test NA Oxygen Delivery Device Ventilator Bedside Oxygen Rate (breaths/min) 22 Blood Gas Minute Ventilation 8.8 Bedside FiO2 40 % Blood Gas Tidal Volume 400 Blood Gas PEEP 10 White Blood Count 14.36 K/uL Red Blood Count 3.10 M/uL Hemoglobin 9.7 g/dL Hematocrit 29.4 % Mean Corpuscular Volume 94.8 fL Mean Corpuscular Hemoglobin 31.3 pg Mean Corpuscular Hemoglobin Concent 33.0 g/dl Platelet Count 177 K/uL Mean Platelet Volume 9.3 fL Neutrophils (%) (Auto) 74.5 % Lymphocytes (%) (Auto) 14.1 % Monocytes (%) (Auto) 7.6 % Eosinophils (%) (Auto) 0.1 % Basophils (%) (Auto) 0.1 % Neutrophils # (Auto) 10.71 K/uL Lymphocytes # (Auto) 2.02 K/uL Monocytes # (Auto) 1.09 K/uL Eosinophils # (Auto) 0.01 K/uL Basophils # (Auto) 0.02 K/uL RDW Standard Deviation 48.0 fL RDW Coefficient of Variation 13.8 % Immature Granulocyte % (Auto) 3.6 % Immature Granulocyte # (Auto) 0.51 K/uL Nucleated RBC Absolute Count (auto) 0.06 K/uL Nucleated Red Blood Cells % 0.4 % Prothrombin Time 10.5 SECONDS Prothromb Time International Ratio 1.0 Bedside Glucose 90 mg/dl Test 03/09/18 12:04 03/09/18 15:35 03/09/18 20:15 03/09/18 23:45 Bedside Glucose 116 mg/dl 79 mg/dl 104 mg/dl 76 mg/dl Test 03/10/18 04:15 03/10/18 04:41 White Blood Count 16.43 K/uL Red Blood Count 3.57 M/uL Hemoglobin 11.3 g/dL Hematocrit 34.2 % Mean Corpuscular Volume 95.8 fL Mean Corpuscular Hemoglobin 31.7 pg Mean Corpuscular Hemoglobin Concent 33.0 g/dl Platelet Count 207 K/uL Mean Platelet Volume 9.6 fL Neutrophils (%) (Auto) 76.5 % Lymphocytes (%) (Auto) 11.3 % Monocytes (%) (Auto) 9.6 % Eosinophils (%) (Auto) 0.0 % Basophils (%) (Auto) 0.2 % Neutrophils # (Auto) 12.57 K/uL Lymphocytes # (Auto) 1.86 K/uL Monocytes # (Auto) 1.57 K/uL Eosinophils # (Auto) 0.00 K/uL Basophils # (Auto) 0.04 K/uL RDW Standard Deviation 47.5 fL RDW Coefficient of Variation 13.7 % Immature Granulocyte % (Auto) 2.4 % Immature Granulocyte # (Auto) 0.39 K/uL Nucleated RBC Absolute Count (auto) 0.17 K/uL Nucleated Red Blood Cells % 1.0 % Bedside Glucose 103 mg/dl
[2018-03-10] MEDS: OXYCODONE HCL 20 MG/1 ML UDP PO SCH ×4 (06:11→23:06)
[2018-03-10] MEDS: METHYLPREDNISOLONE IV 30 MG in SYRINGE 0 ML IV SCH ×3 (06:11→21:08)
--- NOTE | 2018-03-10 07:19 | DIAGNOSTIC IMAGING REPORT ---
CHEST ONE VIEW PORTABLE HISTORY: Acute on chronic respiratory failure. COMPARISON: Chest 03/09/2018. FINDINGS: The endotracheal tube terminates 2.6 cm from the raad. Nasogastric tube terminates below the diaphragm. The tip is not included on this study. Right jugular central venous catheter terminates at the proximal SVC. No pneumothorax. Small bilateral pleural effusions and moderate pulmonary edema persists. There is moderate enlargement of the cardiac silhouette, unchanged. Left-sided chest wall deformity and left basilar densities are again noted. Scoliosis. IMPRESSION: 1. Satisfactory support line placement. 2. No change in the pulmonary edema, cardiomegaly, bilateral pleural effusions, left basilar densities. Electronically signed by: Adams Burgess M.D. 03/10/2018 7:17 AM Dictated Date/Time: 03/10/2018 7:16 AM
[2018-03-10] MEDS: IPRATROPIUM BROMIDE HFA INHALER INH SCH ×4 (07:25→19:25)
[2018-03-10] MEDS: LEValbuterol HFA 15GM INHALER INH SCH ×4 (07:25→19:25)
[2018-03-10] MEDS: PAROXETINE 20 MG TAB PO SCH (08:52)
[2018-03-10] MEDS: DOCUSATE SODIUM 100 MG/10 ML UDC PO SCH ×2 (08:53→19:54)
[2018-03-10] MEDS: CLONIDINE HCL 0.1 MG TAB PO SCH ×3 (08:55→21:00)
[2018-03-10] MEDS: GABAPENTIN 100 MG CAP PO SCH ×2 (08:55→19:57)
--- NOTE | 2018-03-10 09:06 | Pharmacy Progress Note ---
Glycemic Control Progress Note Date of Service Mar 10, 2018. Scope Glycemic Pharmacist consulted for glycemic control to write orders per [facility] inpatient glycemic control protocol. Objective Accuchecks BSG (last 24hrs): Test 03/09/18 12:04 03/09/18 15:35 03/09/18 20:15 03/09/18 23:45 Bedside Glucose 116 mg/dl (70-99) 79 mg/dl (70-99) 104 mg/dl (70-99) 76 mg/dl (70-99) Test 03/10/18 04:15 03/10/18 04:41 Random Glucose 85 mg/dl (70-99) Bedside Glucose 103 mg/dl (70-99) HbA1c: Test 03/08/18 04:32 Hemoglobin A1c 5.9 % (4.5-5.6) H Recent Pertinent Medications The patient is currently receiving: * Lantus 20 units SC 03/08 AM, 15 units 03/09 AM * Bolus insulin * NovoLog per scale q4h * Goal Range: Low 110 mg/dL - High 150 mg/dL * Correction Factor: 20 mg/dL/unit * Nutritional / Prandial insulin per carb ratio of 1 unit per 6 grams CHO consumed Outpatient Anti-Diabetic Meds None Assessment & Plan ASSESSMENT: * 52 yo M on no diabetes medications at home with *previous* A1c in November suggestive of possible T2DM (A1c this admit decreased to pre-diabetes range) currently mechanically ventilated in ICU 2nd acute on chronic respiratory failure * Stressors stable * Most BSG's below goal yesterday, ranging 76-116 mg/dL. No episodes of hypoglycemia, but will still reduce insulin administration * Decrease Lantus this AM - concerned for hypoglycemia with ongoing dose if tubefeeds are held * Will loosen CHO ratio as steroids were tapered yesterday and therefore his insulin sensitivity likely increased * Of note, high dose Bactrim also may increase risk for hypoglycemia (even in non-diabetic patients) * Hypoglycemia to 67 mg/dL noted this afternoon - etiology likely 2nd administration of 10 units IV insulin (with D50 50 mL) for hyperkalemia. * Will increase the lower end of the goal range - will potentially decrease Novolog dose when BSG less than 120 mg/dL PLAN FOR INPATIENT GLYCEMIC CONTROL: * Decrease Lantus qAM based on BSG as follows: * 8 units for BSG less than 160 mg/dL * 12 units for BSG greater than 160 mg/dL * Decrease Lantus qPM based on BSG as follows: * 0 units for BSG less than 160 mg/dL * 5 units for BSG greater than 160 mg/dL * Bolus insulin * NovoLog per scale q4h * Increase Goal Range: Low 120 mg/dL - High 150 mg/dL * Correction Factor: 20 mg/dL/unit * Loosen Nutritional / Prandial insulin per carb ratio of 1 unit per 7 grams CHO consumed RECOMMENDATIONS FOR DISCHARGE: * Follow-up as outpatient for A1c of 5.9% (suggestive of pre-diabetes) with recent history of A1c of 6.5% (suggestive of T2DM) * Please note that the plan above was derived based on current level of insulin resistance and hospital stress. These recommendations are appropriate for inpatient admission only. Plan of care upon discharge will need to be reassessed to avoid potential outpatient hypo/hyperglycemia. Thank you.
[2018-03-10] MEDS ORDERED: ALBUTEROL 0.083% NEBU SOLN 3 ML VIAL INH STA (09:14)
[2018-03-10] MEDS ORDERED: SODIUM POLYST. SULF SUSP 15G/60ML PO STA ×2 (09:14→12:48)
[2018-03-10] MEDS: ASPIRIN 81 MG CHEW PO SCH (09:19)
--- NOTE | 2018-03-10 09:25 | Progress Note ---
Internal Med Progress Note Date of Service: Mar 10, 2018. Provider Documentation: SUBJECTIVE: Continues to be on mechanical ventilation and remains intubated. When examined at bedside, patient has been able to make bowel movement. Patient also became agitated during exam when checking pupillary responses OBJECTIVE: General- as above Head- atraumatic Eyes- EOMI, pupillary responses intact Neck- supple, no JVD MOUTH/OROPHARYNX - Endotracheal tube in place. NECK - RIGHT IJ CVL in place. LUNGS - Chest wall symmetric without accessory muscle use, intercostals retractions, or central cyanosis. Coarse breath sounds bilaterally. Abdomen- soft, bowel sounds present Extremities- lower extremity pulses intact Neuro- moved extremities during physical exam ASSESSMENT & PLAN: 52-year-old male with a history of asthma & COPD who was admitted to the ICU for acute on chronic respiratory failure with noted hypoxia and respiratory distress. He was unable to tolerate BiPAP and has been maintained on 5L of oxygen via oxymask. He subsequently decompensated on 03/03 early childhood associate, and was intubated and placed on a mechanical ventilator. currently still on mechanical ventilation and remains intubated Resp: Hypersensitivity Pneumonitis/ARDS vs pneumonia -ARDS protocol ventilation - methylprednisone 30 mg IV q8 hours - xopenex -review of recent ICU notes concerning for problems with mechanical ventilator weaning, and that should there be continued issues then possibly patient may need tracheostomy/ventilation -pulmonary consult requested to assist with mechanical ventilator management Neuro: - versed while on mechanical ventilation for sedation -agitation was though to be due to opioid withdrawal, and patient is on clonidine and roxicodone -Pain continue fentanyl prn for acute pain; Chronic Pain: Continue Gabapentin; Depression: Continue Paxil Cardiovascular: -aspirin 324 mg daily -ECHO showed * Normal LV chamber size and wall thickness. * Normal LV systolic function, EF 65-70%. * No segmental left ventricular wall motion abnormalities are noted. * Grade I diastolic dysfunction. * Poorly visualized RV. * No significant valvular pathology. Fluids/Renal/Electrolytes -Acute Kidney injury improving as creatinine downtrending -high normal potassium vs hyperkalemia, 03/10/18 serum potassium is 5.7, patient had been able to make bowel movements from previous milk of magnesia; hyperkalemia protocol with Kayexalate, calcium gluconate, albuterol, 10 units of regular insulin, D50 -patient also has been on IV Lasix 40 mg daily to prevent fluid overload and this can also reduce serum potassium levels -will recheck serum potassium levels today ID: - was previously on vancomycin and azithromycin - Blood Cultures 03/01/18 are negative -karla albicans in sputum from 03/04/18, on caspofungin treatment - ICU continuing antifungal because of lot of growth as per their discussion with pathology and caspofungin to be continued -BAL cultures negative, last dose of Zosyn given on 03/08/18 -urinary legionella negative, mycoplasma IgM is negative, mycoplasma IgG is equivocal -given LDH elevated at 538, on bactrim 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 - HIV results negative GI/Nutrition: -enteral feeds -GERD/GI prophylaxis: Pantoprazole 40mg IV daily -patient made bowel movement today -[place] Catheter Endocrine: -pharmacy glycemic control consult involved in serum glucose management Heme: - bilateral venous doppler negative for DVT -stable Hgb and platelets Access: Right triple lumen IJ and right radial A line DVT Prophylaxis: 5,000 units heparin q8h Code status: FULL DISPOSITION Continue monitor in the ICU Vital Signs: Date Time Temp Pulse Resp B/P (MAP) Pulse Ox O2 Delivery O2 Flow Rate FiO2 03/10/18 08:00 92 Mechanical Ventilator 40 03/10/18 08:00 40 03/10/18 08:00 78 22 95/65 (75) 91 Mechanical Ventilator 40 03/10/18 07:35 40 03/10/18 07:00 37.1 95 22 112/73 (86) 90 Mechanical Ventilator 40 03/10/18 06:00 99 21 158/113 (128) 89 Mechanical Ventilator 40 03/10/18 05:05 40 03/10/18 04:00 Mechanical Ventilator 40 03/10/18 04:00 37.3 112 25 171/103 (125) 88 Mechanical Ventilator 40 03/10/18 04:00 40 03/10/18 02:20 40 03/10/18 02:00 72 22 92/59 (70) 91 Mechanical Ventilator 40 03/10/18 00:01 37.4 98 19 159/115 (130) 92 Mechanical Ventilator 40 03/09/18 23:59 40 03/09/18 23:59 Mechanical Ventilator 40 03/09/18 22:53 40 03/09/18 22:00 89 24 158/102 (120) 89 03/09/18 21:01 95 22 181/113 (135) 100 03/09/18 20:30 76 22 130/81 (97) 90 03/09/18 20:29 91 22 124/82 (96) 87 03/09/18 20:00 40 03/09/18 20:00 37.3 70 22 95/61 (72) 89 Mechanical Ventilator 40 03/09/18 20:00 91 Mechanical Ventilator 40 03/09/18 19:30 73 22 104/66 (79) 89 03/09/18 19:01 40 03/09/18 19:00 77 22 103/66 (78) 89 03/09/18 18:30 108 22 116/72 (87) 84 03/09/18 18:01 111 14 179/123 (141) 95 03/09/18 18:00 107 17 84 03/09/18 17:10 40 03/09/18 17:00 83 22 138/80 (99) 88 Mechanical Ventilator 40 03/09/18 16:00 91 Mechanical Ventilator 40 03/09/18 16:00 40 03/09/18 16:00 91 22 124/77 (93) 91 Mechanical Ventilator 40 03/09/18 15:30 114 21 169/105 (126) 95 Mechanical Ventilator 40 03/09/18 15:14 37.4 121 13 121/117 (118) 89 Mechanical Ventilator 40 03/09/18 14:57 40 03/09/18 14:25 40 03/09/18 14:00 75 22 107/63 (78) 90 Mechanical Ventilator 40 03/09/18 13:30 74 22 118/70 (86) 91 Mechanical Ventilator 40 03/09/18 13:00 75 22 100/62 (75) 90 Mechanical Ventilator 40 03/09/18 12:00 40 03/09/18 12:00 90 Mechanical Ventilator 40 03/09/18 12:00 37.4 80 22 115/72 (86) 90 Mechanical Ventilator 40 03/09/18 11:15 40 03/09/18 11:00 83 22 123/75 (91) 92 Mechanical Ventilator 40 03/09/18 10:00 110 19 185/118 (140) 90 Mechanical Ventilator 40 03/09/18 09:31 134 27 160/120 (133) 85 Mechanical Ventilator 40 Lab Results: Results Past 24 Hours Test 03/09/18 12:04 03/09/18 15:35 03/09/18 20:15 03/09/18 23:45 Range/Units Bedside Glucose 116 79 104 76 70-99 mg/dl Test 03/10/18 04:15 03/10/18 04:41 03/10/18 05:08 03/10/18 09:20 Range/Units White Blood Count 16.43 4.8-10.8 K/uL Red Blood Count 3.57 4.7-6.1 M/uL Hemoglobin 11.3 14.0-18.0 g/dL Hematocrit 34.2 42-52 % Mean Corpuscular Volume 95.8 80-100 fL Mean Corpuscular Hemoglobin 31.7 25-34 pg Mean Corpuscular Hemoglobin Concent 33.0 32-36 g/dl Platelet Count 207 130-400 K/uL Mean Platelet Volume 9.6 7.4-10.4 fL Neutrophils (%) (Auto) 76.5 % Lymphocytes (%) (Auto) 11.3 % Monocytes (%) (Auto) 9.6 % Eosinophils (%) (Auto) 0.0 % Basophils (%) (Auto) 0.2 % Neutrophils # (Auto) 12.57 1.4-6.5 K/uL Lymphocytes # (Auto) 1.86 1.2-3.4 K/uL Monocytes # (Auto) 1.57 0.11-0.59 K/uL Eosinophils # (Auto) 0.00 0-0.5 K/uL Basophils # (Auto) 0.04 0-0.2 K/uL RDW Standard Deviation 47.5 36.4-46.3 fL RDW Coefficient of Variation 13.7 11.5-14.5 % Immature Granulocyte % (Auto) 2.4 % Immature Granulocyte # (Auto) 0.39 0.00-0.02 K/uL Nucleated RBC Absolute Count (auto) 0.17 0-0 K/uL Nucleated Red Blood Cells % 1.0 % Sodium Level 134 136-145 mmol/L Potassium Level 5.7 3.5-5.1 mmol/L Chloride Level 93 98-107 mmol/L Carbon Dioxide Level 39 21-32 mmol/L Anion Gap 2.0 3-11 mmol/L Blood Urea Nitrogen 44 7-18 mg/dl Creatinine 1.28 0.60-1.40 mg/dl Est Creatinine Clear Calc Drug Dose 79.5 ml/min Estimated GFR () 73.6 Estimated GFR (Non- 63.5 BUN/Creatinine Ratio 34.7 10-20 Random Glucose 85 70-99 mg/dl Calcium Level 8.8 8.5-10.1 mg/dl Phosphorus Level 4.4 2.5-4.9 mg/dl Magnesium Level 3.3 1.8-2.4 mg/dl Bedside Glucose 103 70-99 mg/dl Blood Gas Sample Site R Radial Bedside Blood Gas pH (LAB) 7.44 7.35-7.45 Bedside Blood Gas pCO2 (LAB) 61 35-46 mmHg Bedside Blood Gas pO2 (LAB) 63 80-95 mmHg Bedside Blood Gas HCO3 (LAB) 41 19-24 meq/L Bedside Blood Gas Total CO2 > 40 24-31 mEq/l Bedside Blood Gas Base Excess (LAB) 17.0 -9-1.8 meq/L Bedside Blood Gas O2 Saturation 91.0 90-95 % [place] Test Pass Oxygen Delivery Device Ventilator Bedside Oxygen Rate (breaths/min) 22 Blood Gas Minute Ventilation 12.1 Bedside FiO2 40 % Blood Gas Tidal Volume 400 Blood Gas PEEP 10
[2018-03-10] MEDS: INSULIN GLARGINE SOLOSTAR 100 UNITS/ML 3 ML PEN SC SCH ×2 (09:31→19:36)
[2018-03-10] MEDS: DIAZEPAM 5MG TAB PO SCH ×4 (09:36→19:54)
[2018-03-10] MEDS ORDERED: CALCIUM GLUCONATE 10% 1,000 MG in SODIUM CHLORIDE 0.9% 50ML 50 ML IV ONE (09:45)
[2018-03-10] MEDS ORDERED: DEXTROSE 50% 50 ML SYR IV ONE (09:45)
[2018-03-10] MEDS ORDERED: LORAZEPAM 2 MG/ML 1 ML VIAL IV STA (09:58)
[2018-03-10] MEDS ORDERED: INSULIN HUMAN REGULAR PER UNIT 10 UNITS in SYRINGE 9.9 ML IV ONE (10:00)
[2018-03-10] MEDS: FUROSEMIDE INJ 40 MG in SYRINGE 0 ML IV SCH (10:18)
[2018-03-10] MEDS: PANTOprazole INJ 40 MG in SYRINGE 0 ML IV SCH (10:18)
[2018-03-10] MEDS: SENNA 8.8 MG/5 ML UDP PO SCH ×2 (10:23→19:54)
[2018-03-10] MEDS: CASPOFUNGIN INJ 50 MG in SODIUM CHLORIDE 0.9% 100ML 100 ML IV SCH (10:35)
[2018-03-10] MEDS: PROPRANOLOL HCL 10 MG TAB PO SCH ×4 (11:32→21:00)
[2018-03-10] MEDS ORDERED: FUROSEMIDE INJ 20 MG in SYRINGE 0 ML IV ONE (13:00)
--- NOTE | 2018-03-10 13:13 | Progress Note ---
Progress Note Date of Service Mar 10, 2018. Progress Note Hyperkalemia: Today the serum potassium 5.7, repeat serum potassium 6.4 patient has today already receiving calcium gluconate, albuterol, Kayexalate, Lasix, Insulin with D50 as the follow up serum potassium still elevated to 6.4, additional IV Lasix and oral Kayexalate ordered, Nephrology notified for recommendations. Nephrology recommended to have enteral feeds held as there might be too much potassium content in the feeds. Hospitalist discussed with international representative and patient's Trudy about possibility of hemodialysis if the potassium remains elevated Also holding Bactrim as bacterim may induce hyperkalemia Repeating serum potassium levels for the 3rd time today
--- NOTE | 2018-03-10 15:49 | PULMONARY PROGRESS NOTE ---
DATE: 03/10/2018 SUBJECTIVE: The patient intubated and sedated currently. When his sedation is lightened, he becomes extremely agitated and combative. Clearly not tolerating any attempt to wean or even lightning of his sedation. The patient apparently was diagnosed with chronic hypersensitivity pneumonitis, was O2 dependent even prior to his admission, was also steroid dependent. He has also restrictive ventilatory defect in addition to his obstructive ventilatory defect because of severe kyphosis and scoliosis. The patient currently is on IV methylprednisolone, being diuresed on a daily basis and on IV caspofungin and had been on IV trimethoprim-sulfamethoxazole and 360 mg of the trimethoprim component every 6 hours. That was held and apparently patient has had progressive hyperkalemia, which has been treated effectively with Kayexalate, insulin, and calcium gluconate. PHYSICAL EXAMINATION: VITAL SIGNS: Temperature 37.6. Earlier today was 37.9, pulse 86 and regular, respiratory rate 20, blood pressure anywhere from 103/71 to 142/97 and 96% sat on 50% FiO2 on high PEEP. SKIN: Without lesion. HEENT: Atraumatic, normocephalic. PERRLA. LUNGS: Distant P and A with fine rales. CARDIAC: Sinus tachycardia. ABDOMEN: Soft, protuberant. EXTREMITIES: Trace pedal edema. No clubbing or peripheral cyanosis. NEUROLOGICAL: Unable to evaluate. LABORATORY DATA: Chest x-ray today shows satisfactory support line placement, small bilateral pleural effusions and what looks like pulmonary edema bilaterally, left basilar densities identified. White count 16,000, H and H 11.3 and 34.2. Current ABGs this morning, pH 7.44, pCO2 of 61, pO2 of 63, potassium 6.4 this morning withdrawn through the IJ line. Albumin depressed at 2.5. OVERALL ASSESSMENT: I had a lengthy discussion with the patient's Trudy concerning current status. I believe the patient needs to undergo tracheostomy with no further attempts at weaning given his radiographic picture. I believe this is an ARDS pattern. I doubt seriously we are dealing with pneumocystis carinii pneumonia. I suspect the Eveline represents colonization, but in the absence of being able to demonstrate a candidal infection in the tissue (he would never tolerate transbronchial or open lung biopsy), then believe that was a reasonable thing to do to treat with antifungal agents. Would treat with IV caspofungin. We will ask surgery to consult regarding tracheostomy tube due to be placed on Tuesday. The patient's is definitely in agreement with proceeding in this fashion. ARINA
[2018-03-10] MEDS: FENTANYL CITRATE IV PRN ×3 (16:08→23:17)
[2018-03-10] MEDS: [UNRECOGNIZED DRUG - OTHER] IV PRN ×3 (16:08→23:17)
--- NOTE | 2018-03-10 16:47 | Nephrology Progress Note ---
Nephrology Progress Note Date of Service: Mar 10, 2018. Subjective 52 yo male with hypersensitivity pneumonitis/ARDS with respiratory compromise requiring mechanical ventilation. pt had significant swelling which is much improved today and diuresing well. pt though confused and agitated on the vent. pupils reactive but sluggish. potassium this morning was elevated at 6.4 from 5.7. on insulin/d50/lasix/calcium and repeat improved to 4.9. Objective Date Time Temp Pulse Resp B/P (MAP) Pulse Ox O2 Delivery O2 Flow Rate FiO2 03/10/18 16:00 40 03/10/18 16:00 90 Mechanical Ventilator 40 03/10/18 15:06 40 03/10/18 13:00 37.6 86 22 103/71 (82) 96 Mechanical Ventilator 50 03/10/18 12:01 40 03/10/18 12:01 92 Mechanical Ventilator 50 03/10/18 12:00 37.9 108 21 142/97 (112) 91 Mechanical Ventilator 50 03/10/18 11:04 50 03/10/18 11:00 126 25 170/124 (139) 89 Mechanical Ventilator 50 03/10/18 10:33 50 03/10/18 10:12 111 26 89 Mechanical Ventilator 40 03/10/18 10:00 117 17 169/133 (145) 83 Mechanical Ventilator 40 03/10/18 08:00 Mechanical Ventilator 40 03/10/18 08:00 92 Mechanical Ventilator 40 03/10/18 08:00 40 03/10/18 08:00 78 22 95/65 (75) 91 Mechanical Ventilator 40 03/10/18 07:35 40 03/10/18 07:00 37.1 95 22 112/73 (86) 90 Mechanical Ventilator 40 03/10/18 06:00 99 21 158/113 (128) 89 Mechanical Ventilator 40 03/10/18 05:05 40 03/10/18 04:00 Mechanical Ventilator 40 03/10/18 04:00 37.3 112 25 171/103 (125) 88 Mechanical Ventilator 40 03/10/18 04:00 40 03/10/18 02:20 40 03/10/18 02:00 72 22 92/59 (70) 91 Mechanical Ventilator 40 03/10/18 00:01 37.4 98 19 159/115 (130) 92 Mechanical Ventilator 40 03/09/18 23:59 40 03/09/18 23:59 Mechanical Ventilator 40 03/09/18 22:53 40 03/09/18 22:00 89 24 158/102 (120) 89 03/09/18 21:01 95 22 181/113 (135) 100 03/09/18 20:30 76 22 130/81 (97) 90 03/09/18 20:29 91 22 124/82 (96) 87 03/09/18 20:00 40 03/09/18 20:00 37.3 70 22 95/61 (72) 89 Mechanical Ventilator 40 03/09/18 20:00 91 Mechanical Ventilator 40 03/09/18 19:30 73 22 104/66 (79) 89 03/09/18 19:01 40 03/09/18 19:00 77 22 103/66 (78) 89 03/09/18 18:30 108 22 116/72 (87) 84 03/09/18 18:01 111 14 179/123 (141) 95 03/09/18 18:00 107 17 84 03/09/18 17:10 40 03/09/18 17:00 83 22 138/80 (99) 88 Mechanical Ventilator 40 Physical Exam: General-sedated but agitated on the vent Eyes-sluggish and reactive ENT-mmm Neck-supple Lungs-cta Heart-tachycardia Abdomen-bs+/tympanitic/nd Extremities-no c/c/e Neuro-sedated Current Inpatient Medications Medications (Trade) Dose Ordered Sig/Nemo Route Start Time Stop Time Status Last Admin Dose Admin Gabapentin (Neurontin Cap) 100 mg BID PO 03/02/18 09:00 04/01/18 08:59 03/10/18 08:55 100 MG Paroxetine HCl (pAXil TAB) 40 mg DAILY PO 03/02/18 09:00 04/01/18 08:59 03/10/18 08:52 40 MG Pravastatin Sodium (Pravachol Tab) 40 mg HS PO 03/02/18 21:00 04/01/18 20:59 03/09/18 20:37 40 MG Ranitidine HCl (zANTac TAB) 300 mg BID PO 03/02/18 09:00 04/01/18 08:59 Future Hold 03/02/18 20:40 300 MG Levalbuterol (Xopenex 0.63 Mg/ 3 Ml Neb) 0.63 mg Q4H PRN INH 03/01/18 23:15 03/31/18 23:14 03/02/18 01:58 0.63 MG Acetaminophen (Tylenol Tab) 1,000 mg Q8H PRN PO 03/01/18 23:45 03/31/18 23:44 Glucose (Glucose 40% Gel) 15-30 GRAMS 15 GRAMS... UD PRN PO 03/02/18 12:45 04/01/18 12:44 Glucose (Glucose Chew Tab) 4-8 Tablets 4 Tabl... UD PRN PO 03/02/18 12:45 04/01/18 12:44 Dextrose (Dextrose 50% 50ML Syringe) 25-50ML 25ML FOR ... UD PRN IV 03/02/18 12:45 04/01/18 12:44 03/10/18 11:08 25 ML Glucagon (Glucagon Inj) 1 mg UD PRN IM 03/02/18 12:45 04/01/18 12:44 Carbohydrates (Carbohydrates For Hypoglycemia) 15-30 GRAMS 15 grams if BSG 54-69... UD PRN PO 03/02/18 12:45 04/01/18 12:44 Miscellaneous Information (Consult Glycemic Management Pharmacy) 1 ea UD PRN N/A 03/02/18 12:45 04/01/18 12:44 Prednisone (PredniSONE TAB) 30 mg BID PO 03/02/18 21:00 04/01/18 20:59 Future Hold 03/02/18 20:40 30 MG Ondansetron HCl (Zofran Inj) 4 mg Q6H PRN IV 03/02/18 23:45 04/01/18 23:44 Midazolam HCl 250 ml @ 0 mls/hr Q0M PRN IV 03/03/18 02:59 04/02/18 02:58 03/09/18 15:46 8 MLS/HR Pantoprazole Sodium 40 mg/ Syringe 10 ml @ 5 mls/min DAILY@1100 IV 03/03/18 03:30 04/02/18 03:29 03/10/18 10:18 5 MLS/MIN Ipratropium [place] (Atrovent Hfa Inhaler) 4 puffs QIDR INH 03/03/18 08:00 04/02/18 07:59 03/10/18 15:13 4 PUFFS Levalbuterol (Xopenex Hfa Inhaler) 4 puffs QIDR INH 03/03/18 08:00 04/02/18 07:59 03/10/18 15:13 4 PUFFS Heparin Sodium (Porcine) (Heparin Sq 5000 Unit/0.5ml) 5,000 unit Q8H SQ 03/04/18 09:00 04/03/18 08:59 03/10/18 09:42 5,000 UNIT Heparin Sodium (Porcine) (Heparin 10 Unit/ ml 5 ml Flush) 5 ml PRN PRN FLUSH 03/05/18 23:45 04/04/18 23:44 Enteral Nutritional Formula (Novasource Renal) 1,000 ml UD PRN OG 03/06/18 08:45 04/05/18 08:44 03/09/18 16:43 1,000 ML Trimethoprim/ Sulfamethoxazole 368 mg/Dextrose 373 ml @ 250 mls/hr Q6H IV 03/06/18 15:00 03/17/18 14:59 Future Hold 03/10/18 08:51 250 MLS/HR Docusate Sodium (coLACE SYRUP) 100 mg BID PO 03/06/18 12:00 04/05/18 11:59 03/10/18 08:53 100 MG Caspofungin 50 mg/ Sodium Chloride 110 ml @ 110 mls/hr DAILY@0900 IV 03/08/18 09:00 03/19/18 09:59 03/10/18 10:35 110 MLS/HR Insulin Aspart (novoLOG ASPART) SLIDING SCALE G... Q4 SC 03/07/18 16:00 04/06/18 15:59 03/10/18 12:30 1 UNITS Diazepam (Valium Tab) 15 mg QID PO 03/08/18 13:00 04/07/18 12:59 03/10/18 12:31 15 MG Insulin Glargine (Lantus Solostar Pen) QPM@2000 SC 03/09/18 20:00 04/08/18 19:59 Propranolol HCl (Inderal Tab) 10 mg QID PO 03/09/18 09:00 04/08/18 08:59 03/10/18 12:28 10 MG Senna (Senokot Syrup) 17.6 mg BID PO 03/09/18 09:00 04/08/18 08:59 03/10/18 10:23 17.6 MG Methylprednisolone Sodium Succinate 30 mg/Syringe 0.48 ml @ 1.5 mls/min Q8 IV 03/09/18 14:00 04/08/18 13:59 03/10/18 13:04 1.5 MLS/MIN Furosemide 40 mg/ Syringe 4 ml @ 4 mls/min QAM IV 03/09/18 09:00 03/15/18 09:00 03/10/18 10:18 4 MLS/MIN Aspirin (Aspirin Chew) 81 mg QAM PO 03/09/18 09:00 04/08/18 08:59 03/10/18 09:19 81 MG Clonidine HCl (Catapres Tab) 0.1 mg TID PO 03/09/18 09:00 04/08/18 08:59 03/10/18 13:04 0.1 MG Oxycodone HCl (Roxicodone Intensol Soln) 20 mg Q6 PO 03/09/18 14:00 03/23/18 13:59 03/10/18 11:32 20 MG Insulin Glargine (Lantus Solostar Pen) QAM@0800 SC 03/11/18 08:00 04/10/18 07:59 Fentanyl Citrate 250 ml @ 0 mls/hr Q0M PRN IV 03/10/18 16:00 03/24/18 15:59 Fentanyl Citrate (Fentanyl Inj) 50 mcg Q2H PRN IV 03/10/18 16:15 03/24/18 16:14 03/10/18 16:08 50 MCG Last 24 Hours Test 03/09/18 20:15 03/09/18 23:45 03/10/18 04:15 03/10/18 04:41 Bedside Glucose 104 mg/dl 76 mg/dl 103 mg/dl White Blood Count 16.43 K/uL Red Blood Count 3.57 M/uL Hemoglobin 11.3 g/dL Hematocrit 34.2 % Mean Corpuscular Volume 95.8 fL Mean Corpuscular Hemoglobin 31.7 pg Mean Corpuscular Hemoglobin Concent 33.0 g/dl Platelet Count 207 K/uL Mean Platelet Volume 9.6 fL Neutrophils (%) (Auto) 76.5 % Lymphocytes (%) (Auto) 11.3 % Monocytes (%) (Auto) 9.6 % Eosinophils (%) (Auto) 0.0 % Basophils (%) (Auto) 0.2 % Neutrophils # (Auto) 12.57 K/uL Lymphocytes # (Auto) 1.86 K/uL Monocytes # (Auto) 1.57 K/uL Eosinophils # (Auto) 0.00 K/uL Basophils # (Auto) 0.04 K/uL RDW Standard Deviation 47.5 fL RDW Coefficient of Variation 13.7 % Immature Granulocyte % (Auto) 2.4 % Immature Granulocyte # (Auto) 0.39 K/uL Nucleated RBC Absolute Count (auto) 0.17 K/uL Nucleated Red Blood Cells % 1.0 % Sodium Level 134 mmol/L Potassium Level 5.7 mmol/L Chloride Level 93 mmol/L Carbon Dioxide Level 39 mmol/L Anion Gap 2.0 mmol/L Blood Urea Nitrogen 44 mg/dl Creatinine 1.28 mg/dl Est Creatinine Clear Calc Drug Dose 79.5 ml/min Estimated GFR () 73.6 Estimated GFR (Non- 63.5 BUN/Creatinine Ratio 34.7 Random Glucose 85 mg/dl Calcium Level 8.8 mg/dl Phosphorus Level 4.4 mg/dl Magnesium Level 3.3 mg/dl Test 03/10/18 05:08 03/10/18 09:20 03/10/18 09:28 03/10/18 10:27 Blood Gas Sample Site R Radial Bedside Blood Gas pH (LAB) 7.44 Bedside Blood Gas pCO2 (LAB) 61 mmHg Bedside Blood Gas pO2 (LAB) 63 mmHg Bedside Blood Gas HCO3 (LAB) 41 meq/L Bedside Blood Gas Total CO2 > 40 mEq/l Bedside Blood Gas Base Excess (LAB) 17.0 meq/L Bedside Blood Gas O2 Saturation 91.0 % [place] Test Pass Oxygen Delivery Device Ventilator Bedside Oxygen Rate (breaths/min) 22 Blood Gas Minute Ventilation 12.1 Bedside FiO2 40 % Blood Gas Tidal Volume 400 Blood Gas PEEP 10 Potassium Level 6.4 mmol/L Bedside Glucose 81 mg/dl 77 mg/dl Test 03/10/18 11:04 03/10/18 11:25 03/10/18 11:57 03/10/18 13:00 Bedside Glucose 67 mg/dl 94 mg/dl 75 mg/dl Potassium Level 4.9 mmol/L Assessment & Plan hyperkalemia-k was trending up in the setting of stable creatinine. on lasix 40mg iv daily and diuresing well. off the bactrim and temporarily stopped the tube feeds. with the k trending up, there was consideration for emergent dialysis however repeat k levels were better. another level is pending for tonight. have cancelled the vascular surgery consult for now since holding off on dialysis with last k better. would recheck cpk with next set of labs. ID: was on iv bactrim q6hrs which has been stopped secondary to hyperkalemia. would defer to ID for further recommendations. still on the caspofungin.
[2018-03-10 18:23] LABS: POTASSIUM 4.5 mmol/L (3.5-5.1)
[2018-03-10] MEDS: NOVASOURCE RENAL 1000ML BAG OG PRN (19:10)
[2018-03-10] MEDS ORDERED: MIDAZOLAM BOLUS FROM BAG IV STA (19:20)
[2018-03-10] MEDS: PRAVASTATIN SOD 40 MG TAB PO SCH (19:56)
--- NOTE | 2018-03-10 20:52 | Critical Care Progress Note ---
Critical Care Progress Note Date of Service Mar 10, 2018. Critical Care Progress Note I received a phone call from the patient's , Trudy, who was able to provide the patient's code word ("[place]"). I am familiar with her from last several days and multiple conversations. She was requesting an update. I did provide her with a comprehensive update from this evening's assessment. She requests family meeting on Tuesday with her daughters for further discussion of tracheostomy. I did recommend that she speak with daily attendings and specialists in regards to this. She acknowledges understanding. She was provided a comprehensive update. She did call multiple times throughout the evening for updates as well.
[2018-03-10] MEDS: MIDAZOLAM 125MG/250ML D5W 250 ML IV PRN (21:22)
[2018-03-10 23:24] LABS: CALCIUM 9.1 mg/dl (8.5-10.1); CREATININE 1.33 mg/dl (0.60-1.40)
[2018-03-11] VITALS (32 sets, daily range): BP systolic 85–188; BP diastolic 50–109; PULSE 76–112; TEMP 37.8–37.9; O2SAT 74–99
[2018-03-11] MEDS: HEPARIN SOD 5000 UNIT/0.5 ML CARP SQ SCH ×3 (00:02→17:21)
[2018-03-11] MEDS: FENTANYL 1250MCG/250ML NSS 250 ML IV PRN ×2 (01:39→16:32)
[2018-03-11] MEDS: [UNRECOGNIZED DRUG - OTHER] IV PRN ×3 (02:47→12:23)
[2018-03-11] MEDS: FENTANYL CITRATE IV PRN ×3 (02:47→12:23)
[2018-03-11] MEDS: INSULIN ASPART 100 UNITS/ML 3 ML PEN SC SCH ×5 (04:00→20:00)
[2018-03-11 04:25] LABS: BASO % 0.3 %; BASO ABS # 0.04 K/uL (0-0.2); HEMATOCRIT 35.8 % (42-52); HEMOGLOBIN 11.7 g/dL (14.0-18.0); IG# 0.25 K/uL (0.00-0.02); LYMPH % 16.5 %; LYMPH ABS # 2.64 K/uL (1.2-3.4); MEAN CELL VOLUME 96.5 fL (80-100); MEAN CORPUSCULAR HEMOGLOBIN 31.5 pg (25-34); MEAN CORPUSCULAR HGB CONC 32.7 g/dl (32-36); MEAN PLATELET VOLUME 9.4 fL (7.4-10.4); MONO ABS # 1.59 K/uL (0.11-0.59); NEUT % 71.6 %; NEUT ABS # 11.45 K/uL (1.4-6.5); NUCLEATED RED BLOOD CELL ABS 0.06 K/uL (0-0); PLATELET COUNT 187 K/uL (130-400); RED CELL DISTRIBUTION WIDTH CV 13.6 % (11.5-14.5); RED CELL DISTRIBUTION WIDTH SD 47.5 fL (36.4-46.3); WHITE BLOOD COUNT 15.97 K/uL (4.8-10.8)
[2018-03-11 04:47] LABS: ALBUMIN 3.2 gm/dl (3.4-5.0); CREATININE 1.33 mg/dl (0.60-1.40); PHOSPHORUS 4.8 mg/dl (2.5-4.9)
[2018-03-11] MEDS: METHYLPREDNISOLONE IV 30 MG in SYRINGE 0 ML IV SCH ×3 (05:27→21:54)
[2018-03-11] MEDS: OXYCODONE HCL 20 MG/1 ML UDP PO SCH ×3 (05:28→17:26)
[2018-03-11] MEDS: IPRATROPIUM BROMIDE HFA INHALER INH SCH ×4 (07:03→19:29)
[2018-03-11] MEDS: LEValbuterol HFA 15GM INHALER INH SCH ×4 (07:03→19:30)
--- NOTE | 2018-03-11 07:21 | DIAGNOSTIC IMAGING REPORT ---
CHEST ONE VIEW PORTABLE CLINICAL HISTORY: Respiratory failure COMPARISON STUDY: 03/10/2018 FINDINGS: There is a prominent thoracolumbar scoliosis. There is a right internal jugular central venous catheter unchanged in position. There is a nasogastric tube which passes into the stomach. There is an endotracheal tube 30 mm above the raad. Bilateral rib deformities are evident. There are progressive left lung airspace opacities.[There is underlying pulmonary vascular congestion/fluid overload. IMPRESSION: Progressive left lung airspace opacities Electronically signed by: Isma London M.D. 03/11/2018 7:20 AM Dictated Date/Time: 03/11/2018 7:19 AM
[2018-03-11] MEDS: MIDAZOLAM 125MG/250ML D5W 250 ML IV PRN (07:24)
[2018-03-11] MEDS: GABAPENTIN 100 MG CAP PO SCH ×2 (07:53→19:53)
[2018-03-11] MEDS: DOCUSATE SODIUM 100 MG/10 ML UDC PO SCH ×2 (07:53→19:53)
[2018-03-11] MEDS: SENNA 8.8 MG/5 ML UDP PO SCH ×2 (07:53→19:52)
[2018-03-11] MEDS: DIAZEPAM 5MG TAB PO SCH ×4 (07:53→19:53)
[2018-03-11] MEDS: CLONIDINE HCL 0.1 MG TAB PO SCH ×3 (07:54→19:53)
[2018-03-11] MEDS: ASPIRIN 81 MG CHEW PO SCH (07:55)
[2018-03-11] MEDS ORDERED: INSULIN GLARGINE SOLOSTAR 100 UNITS/ML 3 ML PEN SC SCH (08:00)
[2018-03-11] MEDS: PROPOFOL IV EMULSION 10 MG/ML 100 ML VIAL IV PRN ×3 (08:13→20:13)
[2018-03-11] MEDS: PAROXETINE 20 MG TAB PO SCH (08:15)
--- NOTE | 2018-03-11 08:17 | Progress Note ---
Internal Med Progress Note Date of Service: Mar 11, 2018. Provider Documentation: SUBJECTIVE: Yesterday the main issue was focused on patient's hyperkalemia. Vascular and Nephrology evaluated whether patient would need dialysis access for the hyperkalemia. Fortunately the potassium decreased after medical management and ultimately by discontinuing the IV Bactrim. And therefor hemodialysis access was not needed Today the patient seen and examined at bedside in the AM. He is very agitated while on the mechanical ventilation. He is moving his extremities and appears to be flailing while on midazolam and fentanyl Will start patient on propofol to sedate Despite these movements, the patient is not ready to come off of mechanical ventilation. There are progressive left lung airspace opacities in context of underlying pulmonary vascular congestion/fluid overload. Will increase Lasix to 40 mg IV BID Patient also never had head scan during this hospital stay to date. Will request Neurology to evaluate whether these agitated movements are related to seizure. Will order CT head without contrast. Will try to obtain brain MRI when patient more sedated. Patient's will need to be asked to fill out MRI safety questionnaire. Will try to investigate whether there is any evidence for anoxic brain injury with these imaging scans. Dr. Chung verbally endorsed having EEG performed on the patient and EEG ordered Spoke with patient's who also reports that even at home at baseline, patient moves his extremities (possibly involuntary?) during his sleep and this has been going on for years but patient was never assessed by a physician whether he has seizures or sleep disorder OBJECTIVE: General- agitated Head- atraumatic Eyes- EOMI, pupillary responses intact Neck- supple, no JVD MOUTH/OROPHARYNX - Endotracheal tube in place. NECK - RIGHT IJ CVL in place. LUNGS - on mechanical ventilation. Coarse breath sounds bilaterally. Abdomen- soft, bowel sounds present Extremities- lower extremity pulses intact Neuro- moved extremities as above, awake and requiring sedation while on mechanical ventilation ASSESSMENT & PLAN: 52-year-old male with a history of asthma & COPD who was admitted to the ICU for acute on chronic respiratory failure with noted hypoxia and respiratory distress. He was unable to tolerate BiPAP and has been maintained on 5L of oxygen via oxymask. He subsequently decompensated on 03/03 [employer], and was intubated and placed on a mechanical ventilator. currently still on mechanical ventilation and remains intubated Resp: Hypersensitivity Pneumonitis/ARDS vs pneumonia -ARDS protocol ventilation - methylprednisone 30 mg IV q8 hours - xopenex -patient is not ready to come off of mechanical ventilation. There are progressive left lung airspace opacities in context of underlying pulmonary vascular congestion/fluid overload. Pulmonary service has recommended tracheostomy/ventilation and asked general surgery Dr. Richards for tracheostomy evaluation -due to worsening lung imaging, possibly due to fluid overload, increase Lasix from scheduled 40 mg IV daily daily to BID Neuro: - versed while on mechanical ventilation for sedation -agitation was initially thought to be due to opioid withdrawal, and patient is on clonidine and roxicodone -03/11/18 Will start patient on propofol to sedate: Patient also never had head scan during this hospital stay to date. Will request Neurology to evaluate whether these agitated movements are related to seizure. Will order CT head without contrast. Will try to obtain brain MRI when patient more sedated. Patient's will need to be asked to fill out MRI safety questionnaire. Will try to investigate whether there is any evidence for anoxic brain injury with these imaging scans. Dr. Chung verbally endorsed having EEG performed on the patient and EEG ordered -03/11/18: Spoke with patient's who also reports that even at home at baseline, patient moves his extremities (possibly involuntary?) during his sleep and this has been going on for years but patient was never assessed by a physician whether he has seizures or sleep disorder -Pain continue fentanyl prn for acute pain; Chronic Pain: Continue Gabapentin; Depression: Continue Paxil Cardiovascular: -aspirin 324 mg daily -Echocardiogram on 03/12/18 showed LV systolic function, EF 65-70%, No segmental left ventricular wall motion abnormalities * Grade I diastolic dysfunction. * Poorly visualized RV. * No significant valvular pathology. Fluids/Renal/Electrolytes -Acute Kidney injury improving as creatinine downtrending -high normal potassium vs hyperkalemia, 03/10/18 serum potassium is 5.7, patient had been able to make bowel movements from previous milk of magnesia; hyperkalemia protocol with Kayexalate, calcium gluconate, albuterol, 10 units of regular insulin, D50, Lasix. the repeat serum potassium 6.4 and vascular and Nephrology evaluated whether patient would need dialysis access for the hyperkalemia. Fortunately the potassium decreased after medical management and ultimately by discontinuing the IV Bactrim on 03/11/18 -03/11/18: serum potassium is 5 today which is acceptable but due to worsening lung imaging, possibly due to fluid overload, increase Lasix from scheduled 40 mg IV daily daily to BID ID: - was previously on vancomycin and azithromycin - Blood Cultures 03/01/18 are negative -krala albicans in sputum from 03/04/18, on caspofungin treatment - ICU continuing antifungal because of lot of growth as per their discussion with pathology and caspofungin to be continued -BAL cultures negative, last dose of Zosyn given on 03/08/18 -urinary legionella negative, mycoplasma IgM is negative, mycoplasma IgG is equivocal -given LDH elevated at 538, 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; Bactrim stopped on 03/10/18 due to hyperkalemia - HIV results negative GI/Nutrition: -enteral feeds -GERD/GI prophylaxis: Pantoprazole 40mg IV daily -patient made bowel movement today -[place] Catheter Endocrine: -pharmacy glycemic control consult involved in serum glucose management Heme: - bilateral venous doppler negative for DVT -stable Hgb and platelets Access: Right triple lumen IJ and right radial A line DVT Prophylaxis: 5,000 units heparin q8h Code status: FULL DISPOSITION Continue monitor in the ICU Vital Signs: Date Time Temp Pulse Resp B/P (MAP) Pulse Ox O2 Delivery O2 Flow Rate FiO2 03/11/18 07:09 40 03/11/18 06:01 94 24 105/79 (88) 90 03/11/18 06:00 94 24 03/11/18 05:04 40 03/11/18 05:00 111 16 168/106 (126) 88 03/11/18 04:27 40 03/11/18 04:27 93 Mechanical Ventilator 40 03/11/18 04:10 103 20 149/93 (111) 90 03/11/18 04:03 37.8 03/11/18 04:00 104 13 87 03/11/18 03:00 92 24 143/84 (103) 87 03/11/18 02:00 112 18 84 03/11/18 01:52 40 03/11/18 01:00 87 24 106/71 (83) 93 03/11/18 00:00 93 22 141/91 (108) 86 03/11/18 00:00 93 Mechanical Ventilator 40 03/11/18 00:00 40 03/10/18 23:00 102 24 87 03/10/18 22:21 40 03/10/18 22:00 76 22 90/57 (68) 92 03/10/18 21:00 37.3 80 22 91/55 (67) 92 03/10/18 20:00 40 03/10/18 20:00 95 22 155/99 (117) 88 03/10/18 20:00 93 Mechanical Ventilator 40 03/10/18 19:36 40 03/10/18 19:34 94 19 159/96 (117) 88 03/10/18 19:00 81 22 92/61 (71) 93 03/10/18 18:00 84 22 99/63 (75) 93 Mechanical Ventilator 40 03/10/18 17:03 40 03/10/18 16:31 111 26 137/99 (112) 90 Mechanical Ventilator 40 03/10/18 16:00 40 03/10/18 16:00 37.3 112 21 174/108 (130) 87 Mechanical Ventilator 40 03/10/18 16:00 90 Mechanical Ventilator 40 03/10/18 15:06 40 03/10/18 13:00 37.6 86 22 103/71 (82) 96 Mechanical Ventilator 50 03/10/18 12:01 40 03/10/18 12:01 92 Mechanical Ventilator 50 03/10/18 12:00 37.9 108 21 142/97 (112) 91 Mechanical Ventilator 50 03/10/18 11:04 50 03/10/18 11:00 126 25 170/124 (139) 89 Mechanical Ventilator 50 03/10/18 10:33 50 03/10/18 10:12 111 26 89 Mechanical Ventilator 40 03/10/18 10:00 117 17 169/133 (145) 83 Mechanical Ventilator 40 Lab Results: Results Past 24 Hours Test 03/10/18 09:20 03/10/18 09:28 03/10/18 10:27 03/10/18 11:04 Range/Units Potassium Level 6.4 3.5-5.1 mmol/L Bedside Glucose 81 77 67 70-99 mg/dl Test 03/10/18 11:25 03/10/18 11:57 03/10/18 13:00 03/10/18 16:04 Range/Units Bedside Glucose 94 75 71 70-99 mg/dl Potassium Level 4.9 3.5-5.1 mmol/L Test 03/10/18 17:12 03/10/18 19:28 03/10/18 22:52 03/10/18 23:28 Range/Units Potassium Level 4.5 5.0 3.5-5.1 mmol/L Total Creatine Kinase 280 39-308 U/L Bedside Glucose 79 119 70-99 mg/dl Sodium Level 135 136-145 mmol/L Chloride Level 92 98-107 mmol/L Carbon Dioxide Level 41 21-32 mmol/L Anion Gap 2.0 3-11 mmol/L Blood Urea Nitrogen 44 7-18 mg/dl Creatinine 1.33 0.60-1.40 mg/dl Est Creatinine Clear Calc Drug Dose 75.2 ml/min Estimated GFR () 70.2 Estimated GFR (Non- 60.6 BUN/Creatinine Ratio 33.3 10-20 Random Glucose 87 70-99 mg/dl Calcium Level 9.1 8.5-10.1 mg/dl Test 03/11/18 04:07 03/11/18 04:17 03/11/18 08:05 Range/Units Bedside Glucose 92 70-99 mg/dl White Blood Count 15.97 4.8-10.8 K/uL Red Blood Count 3.71 4.7-6.1 M/uL Hemoglobin 11.7 14.0-18.0 g/dL Hematocrit 35.8 42-52 % Mean Corpuscular Volume 96.5 80-100 fL Mean Corpuscular Hemoglobin 31.5 25-34 pg Mean Corpuscular Hemoglobin Concent 32.7 32-36 g/dl Platelet Count 187 130-400 K/uL Mean Platelet Volume 9.4 7.4-10.4 fL Neutrophils (%) (Auto) 71.6 % Lymphocytes (%) (Auto) 16.5 % Monocytes (%) (Auto) 10.0 % Eosinophils (%) (Auto) 0.0 % Basophils (%) (Auto) 0.3 % Neutrophils # (Auto) 11.45 1.4-6.5 K/uL Lymphocytes # (Auto) 2.64 1.2-3.4 K/uL Monocytes # (Auto) 1.59 0.11-0.59 K/uL Eosinophils # (Auto) 0.00 0-0.5 K/uL Basophils # (Auto) 0.04 0-0.2 K/uL RDW Standard Deviation 47.5 36.4-46.3 fL RDW Coefficient of Variation 13.6 11.5-14.5 % Immature Granulocyte % (Auto) 1.6 % Immature Granulocyte # (Auto) 0.25 0.00-0.02 K/uL Nucleated RBC Absolute Count (auto) 0.06 0-0 K/uL Nucleated Red Blood Cells % 0.4 % Sodium Level 137 136-145 mmol/L Potassium Level 5.0 3.5-5.1 mmol/L Chloride Level 95 98-107 mmol/L Carbon Dioxide Level 41 21-32 mmol/L Anion Gap 1.0 3-11 mmol/L Blood Urea Nitrogen 46 7-18 mg/dl Creatinine 1.33 0.60-1.40 mg/dl Est Creatinine Clear Calc Drug Dose 75.2 ml/min Estimated GFR () 70.2 Estimated GFR (Non- 60.6 BUN/Creatinine Ratio 34.6 10-20 Random Glucose 88 70-99 mg/dl Calcium Level 9.0 8.5-10.1 mg/dl Phosphorus Level 4.8 2.5-4.9 mg/dl Magnesium Level 2.4 1.8-2.4 mg/dl Total Bilirubin 0.7 0.2-1 mg/dl Aspartate Amino Transf (AST/SGOT) 71 15-37 U/L Alanine Aminotransferase (ALT/SGPT) 101 12-78 U/L Alkaline Phosphatase 85 45-117 U/L Total Protein 7.0 6.4-8.2 gm/dl Albumin 3.2 3.4-5.0 gm/dl Globulin 3.8 2.5-4.0 gm/dl Albumin/Globulin Ratio 0.8 0.9-2 Blood Gas Sample Site R Radial Bedside Blood Gas pH (LAB) 7.46 7.35-7.45 Bedside Blood Gas pCO2 (LAB) 62 35-46 mmHg Bedside Blood Gas pO2 (LAB) 75 80-95 mmHg Bedside Blood Gas HCO3 (LAB) 44 19-24 meq/L Bedside Blood Gas Total CO2 > 40 24-31 mEq/l Bedside Blood Gas Base Excess (LAB) 20.0 -9-1.8 meq/L Bedside Blood Gas O2 Saturation 94.0 90-95 % [place] Test Pass Oxygen Delivery Device Ventilator Bedside Oxygen Rate (breaths/min) 24 Blood Gas Minute Ventilation 12.9 Bedside FiO2 40 % Blood Gas Tidal Volume 400 Blood Gas PEEP 10
[2018-03-11] MEDS: PROPRANOLOL HCL 10 MG TAB PO SCH ×4 (08:20→20:53)
[2018-03-11] MEDS: CASPOFUNGIN INJ 50 MG in SODIUM CHLORIDE 0.9% 100ML 100 ML IV SCH (08:43)
[2018-03-11] MEDS ORDERED: FUROSEMIDE INJ 40 MG in SYRINGE 0 ML IV SCH (09:00)
--- NOTE | 2018-03-11 09:16 | DIAGNOSTIC IMAGING REPORT ---
CT HEAD WITHOUT CONTRAST (CT) CLINICAL HISTORY: Respiratory failure. Possible anoxic brain injury. COMPARISON STUDY: No previous studies for comparison. TECHNIQUE: Axial CT of the brain is performed from the vertex to the skull base. IV contrast was not administered for this examination. A dose lowering technique was utilized adhering to the principles of ALARA. CT DOSE: 614.27 mGy.cm FINDINGS: No intra or extra-axial mass lesions are visualized. There is no CT evidence of acute cortical infarction. There is no evidence of midline shift. There is no acute hemorrhage. No calvarial fractures are visualized. There is no evidence of pathologic ventricular dilatation. There is no evidence of acute sinusitis IMPRESSION: No acute intracranial findings Electronically signed by: Isma London M.D. 03/11/2018 9:14 AM Dictated Date/Time: 03/11/2018 9:13 AM
--- NOTE | 2018-03-11 10:15 | Critical Care Progress Note ---
Critical Care Progress Note Date of Service Mar 11, 2018. ICU Day ICU Day Number: 8 Attending Subjective Patient remains sedated Concerns from nursing regarding continuous non-purposeful writhing movements Does not respond to commands No other acute issues overnight Await Tracheostomy placement next week Objective VITAL SIGNS - Vital signs and nursing notes were reviewed. GENERAL - 52-year-old male appearing his stated age. Intubated and sedated. Awakens and agitates easily. SKIN - Multiple areas of ecchymosis noted throughout. HEAD - NC/AT. EYES - Dilated pupils bilaterally. MOUTH/OROPHARYNX - Endotracheal tube in place. Foamy secretions in the oral airway NECK - RIGHT IJ Central Venous Catheter in place LUNGS - Chest wall symmetric without accessory muscle use, intercostals retractions, or central cyanosis. Coarse breath sounds bilaterally more pronounced on left side vs right CARDIAC - RRR with S1/S2. No murmur, rubs, or gallops appreciated. ABDOMEN - Abdominal contour protuberant without pulsations or visible masses. BS normoactive all four quadrants. EXTREMITIES - No clubbing or peripheral cyanosis. No pretibial edema present. +3 /5 radial and dorsalis pedis pulses palpated throughout. Strength appears intact bilaterally when patient becomes agitated. NEUROLOGIC - RASS -4; could not assess orientation status Assessment & Plan 52 year old male admitted to ICU for acute on chronic type 2 respiratory failure due to ARDS from hypersensitivity pneumonitis vs Eveline pneumonia. His problems list is as follows: - Acute on Chronic Hypoxemic/Hypercapneic Respiratory Failure - ARDS - COPD - Eveline Pneumonia - Possible seizure activity - Mild, MAHAD - Hyperkalemia - Type 2 Diabetes Mellitus - GRACIE - GERD - Depression NEUROLOGICAL - Sedation: Start Propofol; will wean Midazolam at this time Continue Fentanyl infusion Diazepam 15 mg QID - RASS: -4 - Pain regimen: Fentanyl 50 mcg q2h; Oxycodone 20 mg q6 Depression: Continue Paxil via NGT Writhing, non-purposeful movements ,concerning for possible seizures - Discussed with primary hospitalist, who will order CT non-contrast and conditionally MRI to assess further; neurology will be consulted for evaluation fo the patient CARDIOVASCULAR - MAP: 60-100 - Vasopressor support: none - IV Fluids: none - Continue ASA - Continue Pravachol - Continue Propranolol and Clonidine to limit sympathetic outflow] - Hold Lasix as patient is currently euvolemic and Cr. uptrending which is supportive of euvolemia after diuresis RESPIRATORY - RR: 25 (breathing above set RR 24) SpO2: meeting goal between 88-92% - Ventilator settings: Volume A/C; Vt 400, RR 24, PEEP 10; FiO2 40% - ABG this morning showing a compensated respiratory acidosis Acute on Chronic Respiratory Failure - CXR this AM demonstrating progression of left-sided infiltrate - On Caspofungin for Eveline coverage - Off ARDS net protocol GASTROINTESTINAL - Diet: Novasource via OG tube - GI Prophylaxis: 40 mg IV daily - Bowel regimen: Colace; had 2 BMs yesterday - Mild transaminitis: AST [id number] RENAL//ENDOCRINE - Fluid Balance: Global +1.5L 24 hours: -6L yesterday - 24-hour UO: > 0.5 ml/kg/hr - Electrolytes: Na 137/K 5.0/Cl 95/Bicarb 41/BUN 46/Cr 1.3/Mg 2.4/Phos 4.8/Ca 9.0 (alb 3.2) - IV Fluids: None - MAHAD: Cr: 1.3, has been getting diuresed with Lasix daily with good urine output; may reflect euvolvemic status; will hold Lasix and monitor Cr tomorrow. - Hyperkalemia: resolved, suspected Bactrim effect, Bactrim D/Cd yesterday - Type 2 Diabetes Mellitus: BSG: WNL goal 140-180; continue q4h checks; Lantus + SSI HEME/ID - Tmax: 37.9 WBC: 15.9 unchanged - Hb/Hct 11.7/35.8 unchanged - Candidate Pneumonia: Caspofungin day 4 Bactrim D/C due to concerns fo hyperkalemia - Blood cultures negative - AFB pending - DVT Prophylaxis: Heparin 5000 TID, SCDs ACCESS - Right IJ triple lumen catheter - 20 G left forearm - [place] - OG tube - ET tube (3.0 cm above raad per this mornings X-ray) CODE STATUS - Full Code DISPOSITION - OT/PT: Not ready yet, still requires heavy sedation - Plan for Tracheostomy placement Resident Physician Supervision Note: I interviewed and examined the patient. Discussed with Dr. Kramer and agree with findings and plan as documented in the note. Any exceptions or clarifications are listed here: None Documented By: Jose Madrid no HPI or ROS obtainable d/w R3, nursing, pulmonary vitals noted, sedated on vent, occassionally moving arms irregularly. lungs coarse b/l but good air entry, no chest wall retractions. acute respiratory failure related to hypersensitivity pneumonitis - vent support. steroids. nutrition support. trach tuesday. Consults & Procedures Consultants: ID Pulm Procedures: RIGHT IJ CVL RIGHT Rad Art Line Bronch Data Medications: Current Inpatient Medications Medications (Trade) Dose Ordered Sig/Nemo Route Start Time Stop Time Status Last Admin Dose Admin Gabapentin (Neurontin Cap) 100 mg BID PO 03/02/18 09:00 04/01/18 08:59 03/11/18 07:53 100 MG Paroxetine HCl (pAXil TAB) 40 mg DAILY PO 03/02/18 09:00 04/01/18 08:59 03/11/18 08:15 40 MG Pravastatin Sodium (Pravachol Tab) 40 mg HS PO 03/02/18 21:00 04/01/18 20:59 03/10/18 19:56 40 MG Ranitidine HCl (zANTac TAB) 300 mg BID PO 03/02/18 09:00 04/01/18 08:59 Future Hold 03/02/18 20:40 300 MG Levalbuterol (Xopenex 0.63 Mg/ 3 Ml Neb) 0.63 mg Q4H PRN INH 03/01/18 23:15 03/31/18 23:14 03/02/18 01:58 0.63 MG Acetaminophen (Tylenol Tab) 1,000 mg Q8H PRN PO 03/01/18 23:45 03/31/18 23:44 Glucose (Glucose 40% Gel) 15-30 GRAMS 15 GRAMS... UD PRN PO 03/02/18 12:45 04/01/18 12:44 Glucose (Glucose Chew Tab) 4-8 Tablets 4 Tabl... UD PRN PO 03/02/18 12:45 04/01/18 12:44 Dextrose (Dextrose 50% 50ML Syringe) 25-50ML 25ML FOR ... UD PRN IV 03/02/18 12:45 04/01/18 12:44 03/10/18 11:08 25 ML Glucagon (Glucagon Inj) 1 mg UD PRN IM 03/02/18 12:45 04/01/18 12:44 Carbohydrates (Carbohydrates For Hypoglycemia) 15-30 GRAMS 15 grams if BSG 54-69... UD PRN PO 03/02/18 12:45 04/01/18 12:44 Miscellaneous Information (Consult Glycemic Management Pharmacy) 1 ea UD PRN N/A 03/02/18 12:45 04/01/18 12:44 Prednisone (PredniSONE TAB) 30 mg BID PO 03/02/18 21:00 04/01/18 20:59 Future Hold 03/02/18 20:40 30 MG Ondansetron HCl (Zofran Inj) 4 mg Q6H PRN IV 03/02/18 23:45 04/01/18 23:44 Pantoprazole Sodium 40 mg/ Syringe 10 ml @ 5 mls/min DAILY@1100 IV 03/03/18 03:30 04/02/18 03:29 03/10/18 10:18 5 MLS/MIN Ipratropium [place] (Atrovent Hfa Inhaler) 4 puffs QIDR INH 03/03/18 08:00 04/02/18 07:59 03/11/18 07:03 4 PUFFS Levalbuterol (Xopenex Hfa Inhaler) 4 puffs QIDR INH 03/03/18 08:00 04/02/18 07:59 03/11/18 07:03 4 PUFFS Heparin Sodium (Porcine) (Heparin Sq 5000 Unit/0.5ml) 5,000 unit Q8H SQ 03/04/18 09:00 04/03/18 08:59 03/11/18 08:16 5,000 UNIT Heparin Sodium (Porcine) (Heparin 10 Unit/ ml 5 ml Flush) 5 ml PRN PRN FLUSH 03/05/18 23:45 04/04/18 23:44 Enteral Nutritional Formula (Novasource Renal) 1,000 ml UD PRN OG 03/06/18 08:45 04/05/18 08:44 03/10/18 19:10 1,000 ML Trimethoprim/ Sulfamethoxazole 368 mg/Dextrose 373 ml @ 250 mls/hr Q6H IV 03/06/18 15:00 03/17/18 14:59 Future Hold 03/10/18 08:51 250 MLS/HR Docusate Sodium (coLACE SYRUP) 100 mg BID PO 03/06/18 12:00 04/05/18 11:59 03/11/18 07:53 100 MG Caspofungin 50 mg/ Sodium Chloride 110 ml @ 110 mls/hr DAILY@0900 IV 03/08/18 09:00 03/19/18 09:59 03/11/18 08:43 110 MLS/HR Insulin Aspart (novoLOG ASPART) SLIDING SCALE G... Q4 SC 03/07/18 16:00 04/06/18 15:59 03/11/18 08:50 2 UNITS Diazepam (Valium Tab) 15 mg QID PO 03/08/18 13:00 04/07/18 12:59 03/11/18 07:53 15 MG Insulin Glargine (Lantus Solostar Pen) QPM@2000 SC 03/09/18 20:00 04/08/18 19:59 Propranolol HCl (Inderal Tab) 10 mg QID PO 03/09/18 09:00 04/08/18 08:59 03/11/18 08:20 10 MG Senna (Senokot Syrup) 17.6 mg BID PO 03/09/18 09:00 04/08/18 08:59 03/11/18 07:53 17.6 MG Methylprednisolone Sodium Succinate 30 mg/Syringe 0.48 ml @ 1.5 mls/min Q8 IV 03/09/18 14:00 04/08/18 13:59 03/11/18 05:27 1.5 MLS/MIN Aspirin (Aspirin Chew) 81 mg QAM PO 03/09/18 09:00 04/08/18 08:59 03/11/18 07:55 81 MG Clonidine HCl (Catapres Tab) 0.1 mg TID PO 03/09/18 09:00 04/08/18 08:59 03/11/18 07:54 0.1 MG Oxycodone HCl (Roxicodone Intensol Soln) 20 mg Q6 PO 03/09/18 14:00 03/23/18 13:59 03/11/18 05:28 20 MG Insulin Glargine (Lantus Solostar Pen) QAM@0800 SC 03/11/18 08:00 04/10/18 07:59 Future Hold Fentanyl Citrate 250 ml @ 0 mls/hr Q0M PRN IV 03/10/18 16:00 03/24/18 15:59 03/11/18 01:39 30 MLS/HR Fentanyl Citrate (Fentanyl Inj) 50 mcg Q2H PRN IV 03/10/18 16:15 03/24/18 16:14 03/11/18 05:28 50 MCG Midazolam HCl 250 ml @ 0 mls/hr Q0M PRN IV 03/10/18 21:00 04/02/18 02:58 03/11/18 07:24 16 MLS/HR Propofol (Diprivan Iv Emulsion 100ml Vial) 1 dose UD PRN IV 03/11/18 07:50 03/14/18 07:49 03/11/18 08:13 1 DOSE Furosemide 40 mg/ Syringe 4 ml @ 4 mls/min BID17 IV 03/11/18 09:00 03/13/18 09:00 03/11/18 08:19 4 MLS/MIN Vital Signs: Date Time Temp Pulse Resp B/P (MAP) Pulse Ox O2 Delivery O2 Flow Rate FiO2 03/11/18 08:00 37.9 107 23 188/109 (135) 95 Mechanical Ventilator 40 03/11/18 07:09 40 03/11/18 07:00 96 24 148/88 (108) 92 Mechanical Ventilator 40 03/11/18 06:01 94 24 105/79 (88) 90 03/11/18 06:00 94 24 03/11/18 05:04 40 03/11/18 05:00 111 16 168/106 (126) 88 03/11/18 04:27 40 03/11/18 04:27 93 Mechanical Ventilator 40 03/11/18 04:10 103 20 149/93 (111) 90 03/11/18 04:03 37.8 03/11/18 04:00 104 13 87 03/11/18 03:00 92 24 143/84 (103) 87 03/11/18 02:00 112 18 84 03/11/18 01:52 40 03/11/18 01:00 87 24 106/71 (83) 93 03/11/18 00:00 93 22 141/91 (108) 86 03/11/18 00:00 93 Mechanical Ventilator 40 03/11/18 00:00 40 03/10/18 23:00 102 24 87 03/10/18 22:21 40 03/10/18 22:00 76 22 90/57 (68) 92 03/10/18 21:00 37.3 80 22 91/55 (67) 92 03/10/18 20:00 40 03/10/18 20:00 95 22 155/99 (117) 88 03/10/18 20:00 93 Mechanical Ventilator 40 03/10/18 19:36 40 03/10/18 19:34 94 19 159/96 (117) 88 03/10/18 19:00 81 22 92/61 (71) 93 03/10/18 18:00 84 22 99/63 (75) 93 Mechanical Ventilator 40 03/10/18 17:03 40 03/10/18 16:31 111 26 137/99 (112) 90 Mechanical Ventilator 40 03/10/18 16:00 40 03/10/18 16:00 37.3 112 21 174/108 (130) 87 Mechanical Ventilator 40 03/10/18 16:00 90 Mechanical Ventilator 40 03/10/18 15:06 40 03/10/18 13:00 37.6 86 22 103/71 (82) 96 Mechanical Ventilator 50 03/10/18 12:01 40 03/10/18 12:01 92 Mechanical Ventilator 50 03/10/18 12:00 37.9 108 21 142/97 (112) 91 Mechanical Ventilator 50 03/10/18 11:04 50 03/10/18 11:00 126 25 170/124 (139) 89 Mechanical Ventilator 50 03/10/18 10:33 50 03/10/18 10:12 111 26 89 Mechanical Ventilator 40 03/10/18 10:00 117 17 169/133 (145) 83 Mechanical Ventilator 40 Laboratory Results: Last 24 Hours Test 03/10/18 10:27 03/10/18 11:04 03/10/18 11:25 03/10/18 11:57 Bedside Glucose 77 mg/dl 67 mg/dl 94 mg/dl 75 mg/dl Test 03/10/18 13:00 03/10/18 16:04 03/10/18 17:12 03/10/18 19:28 Potassium Level 4.9 mmol/L 4.5 mmol/L Bedside Glucose 71 mg/dl 79 mg/dl Total Creatine Kinase 280 U/L Test 03/10/18 22:52 03/10/18 23:28 03/11/18 04:07 03/11/18 04:17 Sodium Level 135 mmol/L 137 mmol/L Potassium Level 5.0 mmol/L 5.0 mmol/L Chloride Level 92 mmol/L 95 mmol/L Carbon Dioxide Level 41 mmol/L 41 mmol/L Anion Gap 2.0 mmol/L 1.0 mmol/L Blood Urea Nitrogen 44 mg/dl 46 mg/dl Creatinine 1.33 mg/dl 1.33 mg/dl Est Creatinine Clear Calc Drug Dose 75.2 ml/min 75.2 ml/min Estimated GFR () 70.2 70.2 Estimated GFR (Non- 60.6 60.6 BUN/Creatinine Ratio 33.3 34.6 Random Glucose 87 mg/dl 88 mg/dl Calcium Level 9.1 mg/dl 9.0 mg/dl Bedside Glucose 119 mg/dl 92 mg/dl White Blood Count 15.97 K/uL Red Blood Count 3.71 M/uL Hemoglobin 11.7 g/dL Hematocrit 35.8 % Mean Corpuscular Volume 96.5 fL Mean Corpuscular Hemoglobin 31.5 pg Mean Corpuscular Hemoglobin Concent 32.7 g/dl Platelet Count 187 K/uL Mean Platelet Volume 9.4 fL Neutrophils (%) (Auto) 71.6 % Lymphocytes (%) (Auto) 16.5 % Monocytes (%) (Auto) 10.0 % Eosinophils (%) (Auto) 0.0 % Basophils (%) (Auto) 0.3 % Neutrophils # (Auto) 11.45 K/uL Lymphocytes # (Auto) 2.64 K/uL Monocytes # (Auto) 1.59 K/uL Eosinophils # (Auto) 0.00 K/uL Basophils # (Auto) 0.04 K/uL RDW Standard Deviation 47.5 fL RDW Coefficient of Variation 13.6 % Immature Granulocyte % (Auto) 1.6 % Immature Granulocyte # (Auto) 0.25 K/uL Nucleated RBC Absolute Count (auto) 0.06 K/uL Nucleated Red Blood Cells % 0.4 % Phosphorus Level 4.8 mg/dl Magnesium Level 2.4 mg/dl Total Bilirubin 0.7 mg/dl Aspartate Amino Transf (AST/SGOT) 71 U/L Alanine Aminotransferase (ALT/SGPT) 101 U/L Alkaline Phosphatase 85 U/L Total Protein 7.0 gm/dl Albumin 3.2 gm/dl Globulin 3.8 gm/dl Albumin/Globulin Ratio 0.8 Test 03/11/18 08:05 Blood Gas Sample Site R Radial Bedside Blood Gas pH (LAB) 7.46 Bedside Blood Gas pCO2 (LAB) 62 mmHg Bedside Blood Gas pO2 (LAB) 75 mmHg Bedside Blood Gas HCO3 (LAB) 44 meq/L Bedside Blood Gas Total CO2 > 40 mEq/l Bedside Blood Gas Base Excess (LAB) 20.0 meq/L Bedside Blood Gas O2 Saturation 94.0 % [place] Test Pass Oxygen Delivery Device Ventilator Bedside Oxygen Rate (breaths/min) 24 Blood Gas Minute Ventilation 12.9 Bedside FiO2 40 % Blood Gas Tidal Volume 400 Blood Gas PEEP 10
--- NOTE | 2018-03-11 10:56 | Pharmacy Progress Note ---
Pharmacy Glycemic Short Note 2 Date of Service Mar 11, 2018. OUTPATIENT ANTIDIABETIC REGIMEN: * None Item Value Date Time Bedside Glucose 113 mg/dl H 03/11/18 0800 Bedside Glucose 92 mg/dl 03/11/18 0407 Bedside Glucose 119 mg/dl H 03/10/18 2328 Bedside Glucose 79 mg/dl 03/10/18 1928 Bedside Glucose 71 mg/dl 03/10/18 1604 Bedside Glucose 75 mg/dl 03/10/18 1157 Bedside Glucose 94 mg/dl 03/10/18 1125 Bedside Glucose 67 mg/dl *L 03/10/18 1104 Bedside Glucose 77 mg/dl 03/10/18 1027 Bedside Glucose 81 mg/dl 03/10/18 0928 ASSESSMENT: 03/11/18 * Multiple stressors continue: mechanical vent, agitation, IV steroids, continuous tube feeds, possible infxn * BSGs have been below desired goal for ICU patient, this is despite receiving continuous tube feeds * Will hold this AM's dose of basal insulin and reduce the prandial insulin dose given to cover tube feeds * Ideally would like BSGs closer to 140-180 range * Episode of hypoglycemia yesterday may have been secondary to IV insulin / Dextrose given for hyperkalemia PLAN FOR INPATIENT GLYCEMIC CONTROL: * Basal insulin (dose reduction) * Lantus BID per the following scale: if BSG less than 180 give 0 units; if BSG 180 or greater give 5 units * Bolus insulin * NovoLog per scale Q 4 hours * Goal Range: Low 120 mg/dL - High 150 mg/dL (no change) * Correction Factor: 25 mg/dL/unit (no change) * Nutritional / Prandial insulin per carb ratio of 1 unit per 11 grams CHO consumed (dose reduction)
--- NOTE | 2018-03-11 12:01 | PULMONARY PROGRESS NOTE ---
DATE: 03/11/2018 SUBJECTIVE: The patient had to be sedated with propofol given severe agitation despite increasing doses of IV fentanyl and Versed. A pink frothy material was then suctioned from the endotracheal tube. CT scan of the head done without contrast this morning shows no acute intracranial findings and the chest x-ray showed progressive left lung airspace opacities compared to the right. PHYSICAL EXAMINATION: VITAL SIGNS: Temperature 37.9, pulse 107 and regular, respiratory rate 23, blood pressure 188/109, 95% sat on 40% FIO2. SKIN: Without lesion except for some areas of ecchymoses. HEENT: Atraumatic, normocephalic. PERRLA. LUNGS: Rales audible, left greater than right lung. CARDIAC: Tachycardic rhythm. I do not appreciate a discernible S3. ABDOMEN: Soft, protuberant. EXTREMITIES: Trace pedal edema. No clubbing or peripheral cyanosis. NEUROLOGICAL: Cannot assess. LABORATORY DATA: ABG: pH 7.46, pCO2 of 62, pO2 75 on current vent settings with FIO2 of 40% and PEEP of 10 cm. BUN 46, creatinine 1.3. White count 15,000, H and H 11.7 and 35.8. OVERALL ASSESSMENT: A 52-year-old white male with chronic obstructive pulmonary disease and chronic hypersensitivity, pneumonitis with worsening respiratory failure, tracheostomy planned for Tuesday. MTDD
--- NOTE | 2018-03-11 12:18 | DIAGNOSTIC IMAGING REPORT ---
MRI OF THE BRAIN WITHOUT AND WITH IV CONTRAST CLINICAL HISTORY: Seizure activity. Possible anoxic brain injury. COMPARISON STUDY: Noncontrast CT scan dated 03/11/2018 TECHNIQUE: MRI of the brain was performed from the vertex to the skull base utilizing various T1 and T2 weighted sequences. Following the IV administration of 9.3 mL of Gadavist contrast, additional enhanced images were obtained. FINDINGS: Sagittal T1, axial diffusion, proton density and T2 weighted axial, coronal FLAIR, and pre and post axial T1-weighted images were acquired. These were supplemented with post gadolinium coronal T1 weighted images. No intra or extra-axial mass lesions are visualized. Axial diffusion-weighted images reveal no evidence of acute or subacute infarction. There is no evidence of ventricular dilatation. Proton density T2-weighted and FLAIR images reveal no significant or parenchymal signal abnormalities There are no abnormal flow voids. There is no evidence of pathologic enhancement. There are foci of increased T2 signal in mastoids, likely inflammatory. IMPRESSION: 1. No evidence of intracranial mass 2. No evidence of acute or subacute infarction 3. Foci of increased T2 signal within the mastoids likely inflammatory, otherwise normal MRI the brain for age Electronically signed by: Isma London M.D. 03/11/2018 12:17 PM Dictated Date/Time: 03/11/2018 12:14 PM
[2018-03-11] MEDS: PANTOprazole INJ 40 MG in SYRINGE 0 ML IV SCH (12:55)
--- NOTE | 2018-03-11 16:12 | CONSULTATION REPORT ---
DATE OF CONSULTATION: 03/11/2018 CONSULTATION FOR: Dr. Enrrique Stubbs. Anuel is 52 years old, presented with acute and chronic hypersensitivity pneumonitis superimposed upon COPD, went into respiratory failure approximately 9 days ago and has been on the ventilator ever since. Attempts to wean him have resulted in increasing agitation, combativeness, and need to reintubate. He is due for tracheostomy on Tuesday. In this setting, Dr. Stubbs was concerned that perhaps some of the agitation was due to seizure activity, particularly in light of the fact that the patient's apparently reported some confusional episodes at night, some agitation, and what sounds like it could have been myoclonic activity during the day but again I do not have her to converse with at this time, and the patient has received a heavy dose of propofol as he is essentially unresponsive and on a ventilator. When I discussed the case with Dr. Stubbs, I have suggested that we do an EEG and imaging studies and the imaging studies have been done and showed no evidence for intraparenchymal cortical disease of any significance and perhaps some mild issue with some mastoid inflammation which is not relevant and a CT of course is negative as well. The EEG shows only some muscle movement artifacts having been done unfortunately when the patient was on adequate degrees of sedation, but between these events, the tracing is quite normal, shows a normal background rhythm, normal theta activity and no potentially epileptogenic discharges or lateralizing abnormalities. At this point, then neurology does not feel this is a primary underlying seizure issue, but rather a toxic metabolic encephalopathy related to his pulmonary disease. Whatever issues have been observed at home; however, may be something that needs to be addressed on an outpatient basis if indeed they continue to occur after he recovers from this particular acute illness. Some of what I hear from the nurses sounds like he may be developing a REM behavior disorder and he may have some myoclonus which might relate to some chronic use of his medications at home along with narcotic analgesics. All of this is totally conjectural and something that will need to be addressed in the future on an outpatient basis if the patient survives this acute illness. For now neurology is not going to offer much else, but would be happy to take a look at him if further questions arise. [facility] [place] DIVISIONLeny
[2018-03-11] MEDS: PRAVASTATIN SOD 40 MG TAB PO SCH (19:52)
[2018-03-11] MEDS: INSULIN GLARGINE SOLOSTAR 100 UNITS/ML 3 ML PEN SC SCH (19:58)
[2018-03-12] VITALS (39 sets, daily range): BP systolic 78–154; BP diastolic 51–101; PULSE 76–108; TEMP 36.7–37.6; O2SAT 87–97
[2018-03-12] MEDS: HEPARIN SOD 5000 UNIT/0.5 ML CARP SQ SCH ×3 (00:36→17:15)
[2018-03-12 04:31] LABS: HEMATOCRIT 32.4 % (42-52); HEMOGLOBIN 10.7 g/dL (14.0-18.0); MEAN CELL VOLUME 95.6 fL (80-100); MEAN CORPUSCULAR HEMOGLOBIN 31.6 pg (25-34); MEAN PLATELET VOLUME 9.5 fL (7.4-10.4); NUCLEATED RED BLOOD CELL ABS 0.02 K/uL (0-0); PLATELET COUNT 154 K/uL (130-400); RED CELL DISTRIBUTION WIDTH CV 13.7 % (11.5-14.5); RED CELL DISTRIBUTION WIDTH SD 47.1 fL (36.4-46.3); WHITE BLOOD COUNT 13.66 K/uL (4.8-10.8)
[2018-03-12] MEDS: INSULIN ASPART 100 UNITS/ML 3 ML PEN SC SCH ×6 (04:35→20:00)
[2018-03-12 05:01] LABS: ALBUMIN 2.8 gm/dl (3.4-5.0); CALCIUM 8.8 mg/dl (8.5-10.1); CREATININE 1.42 mg/dl (0.60-1.40); POTASSIUM 3.9 mmol/L (3.5-5.1); TOTAL PROTEIN 6.1 gm/dl (6.4-8.2)
[2018-03-12] MEDS: METHYLPREDNISOLONE IV 30 MG in SYRINGE 0 ML IV SCH ×3 (05:05→22:50)
[2018-03-12] MEDS: OXYCODONE HCL 20 MG/1 ML UDP PO SCH ×4 (05:05→17:13)
--- NOTE | 2018-03-12 07:03 | DIAGNOSTIC IMAGING REPORT ---
CHEST ONE VIEW PORTABLE CLINICAL HISTORY: PNA/Pneumonitis Left Lung Surveillance COMPARISON STUDY: Chest radiograph March 11, 2018. FINDINGS: Tip of nasogastric tube is below the lower aspect of the image but at least within the proximal body of the stomach. Tip of endotracheal tube is 1.9 cm above the raad. Right internal jugular central line is in place with tip in the SVC. There is no pneumothorax. There may be a small left pleural effusion. Scoliosis is incidentally noted. Moderate cardiomegaly is unchanged. Left lung airspace opacity is slightly improved. Right lung airspace opacity is similar or slightly progressive since prior exam. IMPRESSION: 1. Tip of endotracheal tube 1.9 cm above the raad. 2. Bilateral airspace opacities which favor pneumonia. Interval improvement in left lung aeration. Electronically signed by: Carlton Del Valle M.D. 03/12/2018 7:02 AM Dictated Date/Time: 03/12/2018 6:59 AM
[2018-03-12] MEDS: LEValbuterol HFA 15GM INHALER INH SCH ×4 (07:17→19:13)
[2018-03-12] MEDS: IPRATROPIUM BROMIDE HFA INHALER INH SCH ×4 (07:18→19:13)
[2018-03-12] MEDS: CLONIDINE HCL 0.1 MG TAB PO SCH ×2 (08:03→13:32)
[2018-03-12] MEDS: DOCUSATE SODIUM 100 MG/10 ML UDC PO SCH ×2 (08:03→20:33)
[2018-03-12] MEDS: ASPIRIN 81 MG CHEW PO SCH (08:03)
[2018-03-12] MEDS: SENNA 8.8 MG/5 ML UDP PO SCH ×2 (08:04→20:34)
[2018-03-12] MEDS: PAROXETINE 20 MG TAB PO SCH (08:06)
[2018-03-12] MEDS: GABAPENTIN 100 MG CAP PO SCH ×2 (08:07→20:33)
[2018-03-12] MEDS: INSULIN GLARGINE SOLOSTAR 100 UNITS/ML 3 ML PEN SC SCH ×2 (08:35→20:00)
[2018-03-12] MEDS: CASPOFUNGIN INJ 50 MG in SODIUM CHLORIDE 0.9% 100ML 100 ML IV SCH (08:38)
[2018-03-12] MEDS: DIAZEPAM 5MG TAB PO SCH ×3 (08:38→17:00)
--- NOTE | 2018-03-12 08:47 | Progress Note ---
Internal Med Progress Note Date of Service: Mar 12, 2018. Provider Documentation: SUBJECTIVE: Patient with makes upper extremity movements. However is also on sedative drips running including propofol. Patient's at bedside and patient's nurse reports that the patient is less agitated today. Patient also requires frequent suctioning due to oral secretions. OBJECTIVE: General- agitated Head- atraumatic Eyes- pupillary dilatation Neck- supple, no JVD MOUTH/OROPHARYNX - Endotracheal tube NECK - RIGHT IJ CVL in place. LUNGS - on mechanical ventilation. Coarse breath sounds bilaterally. Abdomen- soft, bowel sounds present Extremities- lower extremity pulses intact Neuro- moves extremities spontaneously ASSESSMENT & PLAN: 52-year-old male with a history of asthma & COPD who was admitted to the ICU for acute on chronic respiratory failure with noted hypoxia and respiratory distress. He was unable to tolerate BiPAP and has been maintained on 5L of oxygen via oxymask. 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 currently still on mechanical ventilation and remains intubated Resp: Acute on Chronic Hypoxemic/Hypercapneic Respiratory Failure secondary to Hypersensitivity Pneumonitis/ARDS vs pneumonia -methylprednisone 30 mg IV q8 hours - xopenex -Pulmonary service has recommended tracheostomy/ventilation and asked general surgery Dr. Richards for tracheostomy evaluation -Lasix held and plan to start Diamox as diuretic and for alkalosis Neuro: - versed while on mechanical ventilation for sedation -agitation was initially thought to be due to opioid withdrawal, and patient is on clonidine and roxicodone -03/11/18 started patient on propofol to sedate given upper extremity movements with agitation, Head CT: No acute intracranial findings, Brain MRI: 1. No evidence of intracranial mass 2. No evidence of acute or subacute infarction 3. Foci of increased T2 signal within the mastoids likely inflammatory, otherwise normal MRI the brain for age, EEG test likely affected by sedatives, Neurology service does not assess that there is an primary underlying seizure issue, but rather a toxic metabolic encephalopathy related to his pulmonary disease. -03/11/18: Spoke with patient's who also reports that even at home at baseline, patient moves his extremities (possibly involuntary?) during his sleep and this has been going on for years but patient was never assessed by a physician whether he has seizures or sleep disorder -Pain continue fentanyl prn for acute pain; Chronic Pain: Continue Gabapentin; Depression: Continue Paxil Cardiovascular: -Echocardiogram on 03/12/18 showed LV systolic function, EF 65-70%, No segmental left ventricular wall motion abnormalities * Grade I diastolic dysfunction. * Poorly visualized RV. * No significant valvular pathology. -hold aspirin for possible tracheostomy on 03/13/18 Fluids/Renal/Electrolytes -Acute Kidney injury improving as creatinine downtrending -high normal potassium vs hyperkalemia, 03/10/18 serum potassium is 5.7, patient had been able to make bowel movements from previous milk of magnesia; hyperkalemia protocol with Kayexalate, calcium gluconate, albuterol, 10 units of regular insulin, D50, Lasix. the repeat serum potassium 6.4 and vascular and Nephrology evaluated whether patient would need dialysis access for the hyperkalemia. 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/04/18, on caspofungin treatment - ICU continuing antifungal because of lot of growth as per their discussion with pathology and caspofungin to be continued -BAL cultures negative, last dose of Zosyn given on 03/08/18 -urinary legionella negative, mycoplasma IgM is negative, mycoplasma IgG is equivocal, - HIV results negative -given LDH elevated at 538, 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; Bactrim stopped on 03/10/18 due to hyperkalemia GI/Nutrition: -enteral feeds to be held later tonight in anticipation of tracheostomy on -GERD/GI prophylaxis: Pantoprazole 40mg IV daily -patient's family may be interested in obtaining PEG vs PEJ tube but this will require gastroenterology evaluation -[place] Catheter Endocrine: -pharmacy glycemic control consult involved in serum glucose management Heme: - bilateral venous doppler negative for DVT -stable Hgb and platelets Access: Right triple lumen IJ and right radial A line DVT Prophylaxis: 5,000 units heparin q8h Code status: FULL DISPOSITION Continue monitor in the ICU Vital Signs: Date Time Temp Pulse Resp B/P (MAP) Pulse Ox O2 Delivery O2 Flow Rate FiO2 03/13/18 10:07 30 03/13/18 07:05 30 03/13/18 06:00 103 16 152/116 (128) 03/13/18 05:00 105 16 156/97 (116) 03/13/18 04:22 30 03/13/18 04:22 93 Mechanical Ventilator 30 03/13/18 04:20 30 03/13/18 04:00 37.7 103 16 165/105 (125) 91 03/13/18 03:00 106 16 164/109 (127) 91 03/13/18 02:00 103 16 173/103 (126) 90 03/13/18 01:28 30 03/13/18 01:05 105 20 174/112 (132) 89 03/13/18 00:00 30 03/13/18 00:00 36.8 101 16 152/98 (116) 92 03/13/18 00:00 93 Mechanical Ventilator 30 03/12/18 23:00 102 16 148/97 (114) 91 18 22:09 30 03/12/18 22:01 100 16 142/90 (107) 92 03/12/18 22:00 100 16 91 03/12/18 21:00 100 16 146/93 (110) 90 03/12/18 20:30 106 17 145/89 (107) 92 03/12/18 20:28 105 16 150/94 (112) 92 03/12/18 20:00 36.8 103 16 150/97 (114) 03/12/18 20:00 93 Mechanical Ventilator 30 03/12/18 20:00 30 18 19:30 108 16 153/101 (118) 91 18 19:20 30 18 19:00 105 16 149/87 (107) 91 18 18:15 103 16 142/91 (108) 91 03/12/18 18:00 106 17 139/89 (106) 91 Mechanical Ventilator 30 18 17:45 104 17 135/86 (102) 91 Mechanical Ventilator 30 03/12/18 17:43 105 16 149/87 (107) 91 Mechanical Ventilator 30 18 17:30 107 18 140/96 (111) 89 Mechanical Ventilator 30 03/12/18 17:27 30 18 17:15 105 19 126/81 (96) 89 Mechanical Ventilator 30 03/12/18 17:00 36.7 108 18 133/97 (109) 89 Mechanical Ventilator 30 03/12/18 16:00 100 17 101/83 (89) 87 Mechanical Ventilator 30 03/12/18 16:00 91 Mechanical Ventilator 30 03/12/18 16:00 30 18 15:48 30 18 15:00 101 19 106/83 (91) 89 Mechanical Ventilator 30 03/12/18 14:05 30 03/12/18 14:00 90 0 97/71 (80) 88 Mechanical Ventilator 30 03/12/18 13:00 95 16 132/86 (101) 90 Mechanical Ventilator 30 03/12/18 12:00 91 Mechanical Ventilator 30 03/12/18 12:00 37.6 106 15 120/82 (95) 91 Mechanical Ventilator 30 03/12/18 12:00 30 03/12/18 11:29 30 03/12/18 11:00 81 16 82/53 (63) 93 Mechanical Ventilator 30 Lab Results: Results Past 24 Hours Test 03/12/18 11:32 03/12/18 16:35 03/12/18 20:22 03/13/18 00:28 Range/Units Bedside Glucose 144 133 122 113 70-99 mg/dl Test 03/13/18 04:35 03/13/18 05:41 03/13/18 06:00 03/13/18 07:01 Range/Units Bedside Glucose 141 70-99 mg/dl White Blood Count 14.97 4.8-10.8 K/uL Red Blood Count 3.84 4.7-6.1 M/uL Hemoglobin 12.3 14.0-18.0 g/dL Hematocrit 36.7 42-52 % Mean Corpuscular Volume 95.6 80-100 fL Mean Corpuscular Hemoglobin 32.0 25-34 pg Mean Corpuscular Hemoglobin Concent 33.5 32-36 g/dl Platelet Count 169 130-400 K/uL Mean Platelet Volume 9.8 7.4-10.4 fL Neutrophils (%) (Auto) 77.4 % Lymphocytes (%) (Auto) 13.8 % Monocytes (%) (Auto) 7.3 % Eosinophils (%) (Auto) 0.0 % Basophils (%) (Auto) 0.2 % Neutrophils # (Auto) 11.59 1.4-6.5 K/uL Lymphocytes # (Auto) 2.06 1.2-3.4 K/uL Monocytes # (Auto) 1.09 0.11-0.59 K/uL Eosinophils # (Auto) 0.00 0-0.5 K/uL Basophils # (Auto) 0.03 0-0.2 K/uL RDW Standard Deviation 46.7 36.4-46.3 fL RDW Coefficient of Variation 13.6 11.5-14.5 % Immature Granulocyte % (Auto) 1.3 % Immature Granulocyte # (Auto) 0.20 0.00-0.02 K/uL Nucleated RBC Absolute Count (auto) 0.02 0-0 K/uL Nucleated Red Blood Cells % 0.2 % Hypersegmented Polys 1+ Sodium Level 140 136-145 mmol/L Potassium Level 3.8 3.5-5.1 mmol/L Chloride Level 104 98-107 mmol/L Carbon Dioxide Level 32 21-32 mmol/L Anion Gap 4.0 3-11 mmol/L Blood Urea Nitrogen 42 7-18 mg/dl Creatinine 1.22 0.60-1.40 mg/dl Est Creatinine Clear Calc Drug Dose 78.5 ml/min Estimated GFR () 78.0 Estimated GFR (Non- 67.3 BUN/Creatinine Ratio 34.6 10-20 Random Glucose 136 70-99 mg/dl Calcium Level 8.8 8.5-10.1 mg/dl Phosphorus Level 3.9 2.5-4.9 mg/dl Magnesium Level 2.1 1.8-2.4 mg/dl Total Bilirubin 0.8 0.2-1 mg/dl Direct Bilirubin 0.2 0-0.2 mg/dl Aspartate Amino Transf (AST/SGOT) 37 15-37 U/L Alanine Aminotransferase (ALT/SGPT) 81 12-78 U/L Alkaline Phosphatase 80 45-117 U/L Total Protein 6.9 6.4-8.2 gm/dl Albumin 3.1 3.4-5.0 gm/dl Procalcitonin 0.18 0-0.5 ng/ml Blood Gas Sample Site R Radial Bedside Blood Gas pH (LAB) 7.40 7.35-7.45 Bedside Blood Gas pCO2 (LAB) 51 35-46 mmHg Bedside Blood Gas pO2 (LAB) 79 80-95 mmHg Bedside Blood Gas HCO3 (LAB) 31 19-24 meq/L Bedside Blood Gas Total CO2 33 24-31 mEq/l Bedside Blood Gas Base Excess (LAB) 7.0 -9-1.8 meq/L Bedside Blood Gas O2 Saturation 95.0 90-95 % [place] Test Pass Oxygen Delivery Device Ventilator Bedside Oxygen Rate (breaths/min) 16 Blood Gas Minute Ventilation 6.4 Bedside FiO2 30 % Blood Gas Tidal Volume 400 Blood Gas PEEP 10 Test 03/13/18 07:34 Range/Units Bedside Glucose 125 70-99 mg/dl
[2018-03-12] MEDS: PROPRANOLOL HCL 10 MG TAB PO SCH ×3 (09:00→17:00)
[2018-03-12] MEDS: PROPOFOL IV EMULSION 10 MG/ML 100 ML VIAL IV PRN ×3 (09:03→21:55)
--- NOTE | 2018-03-12 09:51 | Critical Care Progress Note ---
Critical Care Progress Note Date of Service Mar 12, 2018. Attending Dr. Jose Madrid Subjective No issues overnight Remains hemodynamically stable, mechanically ventilated and sedated No nursing concerns at this time. Objective VITAL SIGNS - Vital signs and nursing notes were reviewed. GENERAL - 52-year-old male appearing his stated age. Intubated and sedated. Awakens and agitates easily. SKIN - Multiple areas of ecchymosis noted throughout. HEAD - NC/AT. EYES - Dilated pupils bilaterally. MOUTH/OROPHARYNX - Endotracheal tube in place. Foamy secretions in the oral airway. ET tube at 24 cm NECK - RIGHT IJ Central Venous Catheter in place LUNGS - Chest wall symmetric without accessory muscle use, intercostals retractions, or central cyanosis. Coarse breath sounds bilaterally more pronounced on left side vs right CARDIAC - RRR with S1/S2. No murmur, rubs, or gallops appreciated. ABDOMEN - Abdominal contour protuberant without pulsations or visible masses. BS normoactive all four quadrants. : Campa catheter in place EXTREMITIES - No clubbing or peripheral cyanosis. No pretibial edema present. +3 /5 radial and dorsalis pedis pulses palpated throughout. Strength appears intact bilaterally when patient becomes agitated. NEUROLOGIC - RASS -4; could not assess orientation status Assessment & Plan 52 year old male admitted to ICU for acute on chronic type 2 respiratory failure due to ARDS from hypersensitivity pneumonitis vs Eveline pneumonia. His problems list is as follows: - Acute on Chronic Hypoxemic/Hypercapneic Respiratory Failure - Mixed respiratory/metabolic alkalosis - ARDS - COPD Exacerbation - Eveline Pneumonia - Possible seizure activity - Mild, MAHAD - Type 2 Diabetes Mellitus - GRACIE - GERD - Depression NEUROLOGICAL - Sedation: Continue Fentanyl infusion Continue Propofol Midazolam discontinued - RASS: -4 - Cannot assess CAM-ICU score at this time - Pain regimen: Fentanyl 50 mcg q2h; Oxycodone 20 mg q6 Depression: Continue Paxil via NGT Writhing, non-purposeful movements ,concerning for possible seizures - EEG, CT and MRI unremarkable - Neurology evaluation appreciated; no changes to management at this time CARDIOVASCULAR - BP. Maintaining systolic BP 120-130 with MAPs 90-100 - Vasopressor support: none - Volume status: clinically euvolemic - IV Fluids: none - Pravachol - Continue Propranolol and Clonidine to limit sympathetic outflow - ASA to be held in anticipation of tracheostomy placement as early as tomorrow. - At this point, I do not recommend additional administration of Lasix; the patient is net 0 on fluid balance and maintaining good urine output; need for additional Lasix should be determine with daily examinations RESPIRATORY - RR: 25 (breathing above set RR 24) SpO2: meeting goal between 88-92% - Ventilator settings: Volume A/C; Vt 400, RR 24, PEEP 10; FiO2 40% - AM ABG: pH 7.5 / pCO2 48 / pO2 73 /HCO3 37 ABG suggests mixed picture of metabolic AND respiratory acidosis Patient vent rate set at 24 with patient breathing over vent; baseline pCO2 in the 60s, reflecting chronic CO2 retention and likely patients baseline; in this setting his probably being overventilated at current settings Elevated Bicarb may reflect contraction alkalosis from daily diuresis; he is now euvolemic/slightly dry, Cr rising to 1.4 which is supportive of this. Hold additional diuresis, continue I/O monitoring Single dose acetazolamide can be given to temporize Repeat ABG at 10am Acute on Chronic Respiratory Failure - CXR this AM demonstrating persistent bilateral consolidation L > R - On Caspofungin for Eveline coverage - Off ARDS net protocol at this time - Continue with Xopenex nebulizers - Continue Solu-medrol 30 mg q8h GASTROINTESTINAL - Diet: [employer] via OG tube - GI Prophylaxis: 40 mg IV daily - Bowel regimen: Colace; had 2 BMs yesterday - Per hospitalist discussion with family, patient to be evaluated for possible placement of PEG tube; primary hospitalist service has placed consult for GI - Hold tube feeds at midnight in case of procedure tomorrow Mild transaminitis: improving today AST 50/ALT 84; continue daily CMP RENAL//ENDOCRINE - Fluid Balance: Global - 24-hour UO: > 0.5 ml/kg/hr - Electrolytes: No gross electrolyte abnormalities at this time MAHAD: Cr: 1..42. Likely, has been getting diuresed with Lasix daily with good urine output Patient like at point of euvolemic status where additional scheduled diuretic can be held and be determine on daily assessment Continues to have adequate urine output; no indication at this time to start additional IV fluids Hyperkalemia: Resolved, suspected Bactrim effect, Bactrim D/Cd Type 2 Diabetes Mellitus: BSG: WNL goal 140-180; continue q4h checks; Lantus + SSI HEME/ID - Afebrile with mild, stable leukocytosis of 13 - Hb/Hct 10.7/32 unchanged - Candidate Pneumonia: Caspofungin day 5 Bactrim D/Cd - Blood cultures negative - AFB pending DVT PROPHYLAXIS - Heparin 5000 TID, SCDs; - Hold tonight, pending possible surgical procedure tomorrow ACCESS - Right IJ triple lumen catheter - 20 G left wrist - Camp[place] - OG tube - ET tube 24 cm at lip, (2.0 cm above raad per this mornings X-ray) CODE STATUS - Full Code DISPOSITION - OT/PT: Not ready yet, still requires heavy sedation - Plan for Tracheostomy placement, possibly as early as tomorrow. PROGRESS NOTE There is some noted concern for cuff leak by respiratory therapy and nursing. I did request input from anesthesiology. Discussed with Dr. Hoffman at the bedside. While leak was seen to be present, he is pulling good tidal volumes and his oxygen saturations are at goal. As such given his tenuous respiratory status we felt that it would be prudent to continue to monitor, rather than risk losing the airway during air exchange procedure. We did discuss that his ongoing writhing movements may be a component causing some of the cuff leak, and controlling this may reduce the amount of leak occurring. Unfortunately propofol, fentanyl and midazolam are difficult to titrate up due to borderline blood pressures. We did consider ketamine. However we have opted to pursue neuromuscular blockade at this time. Anticipation is that the patient has tracheostomy placed within the coming days and this can be weaned off once this is done. The patient was started on cisatracurium infusion at a basal rate of 1 mg/h and will titrate up. Given sedation with paralytic to be started, we can hold Diazepam, and Roxanol. Propranolol can be held due to low/borderline BP. d/w dr cortes, present for dr cortes's d/w dr cowan. d/w anesthesia as well as above Consults & Procedures Consultants: ID Pulm Procedures: RIGHT IJ CVL Bronchoscopy Arterial Line, D/Cd Data Medications: Current Inpatient Medications Medications (Trade) Dose Ordered Sig/Nemo Route Start Time Stop Time Status Last Admin Dose Admin Gabapentin (Neurontin Cap) 100 mg BID PO 03/02/18 09:00 04/01/18 08:59 03/12/18 08:07 100 MG Paroxetine HCl (pAXil TAB) 40 mg DAILY PO 03/02/18 09:00 04/01/18 08:59 03/12/18 08:06 40 MG Pravastatin Sodium (Pravachol Tab) 40 mg HS PO 03/02/18 21:00 04/01/18 20:59 03/11/18 19:52 40 MG Ranitidine HCl (zANTac TAB) 300 mg BID PO 03/02/18 09:00 04/01/18 08:59 Future Hold 03/02/18 20:40 300 MG Levalbuterol (Xopenex 0.63 Mg/ 3 Ml Neb) 0.63 mg Q4H PRN INH 03/01/18 23:15 03/31/18 23:14 03/02/18 01:58 0.63 MG Acetaminophen (Tylenol Tab) 1,000 mg Q8H PRN PO 03/01/18 23:45 03/31/18 23:44 Glucose (Glucose 40% Gel) 15-30 GRAMS 15 GRAMS... UD PRN PO 03/02/18 12:45 04/01/18 12:44 Glucose (Glucose Chew Tab) 4-8 Tablets 4 Tabl... UD PRN PO 03/02/18 12:45 04/01/18 12:44 Dextrose (Dextrose 50% 50ML Syringe) 25-50ML 25ML FOR ... UD PRN IV 03/02/18 12:45 04/01/18 12:44 03/10/18 11:08 25 ML Glucagon (Glucagon Inj) 1 mg UD PRN IM 03/02/18 12:45 04/01/18 12:44 Carbohydrates (Carbohydrates For Hypoglycemia) 15-30 GRAMS 15 grams if BSG 54-69... UD PRN PO 03/02/18 12:45 04/01/18 12:44 Miscellaneous Information (Consult Glycemic Management Pharmacy) 1 ea UD PRN N/A 03/02/18 12:45 04/01/18 12:44 Prednisone (PredniSONE TAB) 30 mg BID PO 03/02/18 21:00 04/01/18 20:59 Future Hold 03/02/18 20:40 30 MG Ondansetron HCl (Zofran Inj) 4 mg Q6H PRN IV 03/02/18 23:45 7/7/18 23:44 Pantoprazole Sodium 40 mg/ Syringe 10 ml @ 5 mls/min DAILY@1100 IV 03/03/18 03:30 04/02/18 03:29 03/11/18 12:55 5 MLS/MIN Ipratropium [place] (Atrovent Hfa Inhaler) 4 puffs QIDR INH 03/03/18 08:00 04/02/18 07:59 03/12/18 07:18 4 PUFFS Levalbuterol (Xopenex Hfa Inhaler) 4 puffs QIDR INH 03/03/18 08:00 04/02/18 07:59 03/12/18 07:17 4 PUFFS Heparin Sodium (Porcine) (Heparin Sq 5000 Unit/0.5ml) 5,000 unit Q8H SQ 03/04/18 09:00 04/03/18 08:59 Future Hold 03/12/18 08:40 5,000 UNIT Heparin Sodium (Porcine) (Heparin 10 Unit/ ml 5 ml Flush) 5 ml PRN PRN FLUSH 03/05/18 23:45 04/04/18 23:44 Enteral Nutritional Formula (Novasource Renal) 1,000 ml UD PRN OG 03/06/18 08:45 04/05/18 08:44 03/10/18 19:10 1,000 ML Docusate Sodium (coLACE SYRUP) 100 mg BID PO 03/06/18 12:00 04/05/18 11:59 03/12/18 08:03 100 MG Caspofungin 50 mg/ Sodium Chloride 110 ml @ 110 mls/hr DAILY@0900 IV 03/08/18 09:00 03/19/18 09:59 03/12/18 08:38 110 MLS/HR Insulin Aspart (novoLOG ASPART) SLIDING SCALE G... Q4 SC 03/07/18 16:00 04/06/18 15:59 03/12/18 08:34 2 UNITS Diazepam (Valium Tab) 15 mg QID PO 03/08/18 13:00 04/07/18 12:59 03/12/18 08:38 15 MG Propranolol HCl (Inderal Tab) 10 mg QID PO 03/09/18 09:00 7/14/18 08:59 03/11/18 17:18 10 MG Senna (Senokot Syrup) 17.6 mg BID PO 03/09/18 09:00 04/08/18 08:59 03/12/18 08:04 17.6 MG Methylprednisolone Sodium Succinate 30 mg/Syringe 0.48 ml @ 1.5 mls/min Q8 IV 03/09/18 14:00 04/08/18 13:59 03/12/18 05:05 1.5 MLS/MIN Aspirin (Aspirin Chew) 81 mg QAM PO 03/09/18 09:00 04/08/18 08:59 Future Hold 03/12/18 08:03 81 MG Clonidine HCl (Catapres Tab) 0.1 mg TID PO 03/09/18 09:00 04/08/18 08:59 03/12/18 08:03 0.1 MG Oxycodone HCl (Roxicodone Intensol Soln) 20 mg Q6 PO 03/09/18 14:00 03/23/18 13:59 03/11/18 17:26 20 MG Fentanyl Citrate 250 ml @ 0 mls/hr Q0M PRN IV 03/10/18 16:00 03/24/18 15:59 03/11/18 16:32 125 MLS/HR Fentanyl Citrate (Fentanyl Inj) 50 mcg Q2H PRN IV 03/10/18 16:15 03/24/18 16:14 03/11/18 12:23 50 MCG Midazolam HCl 250 ml @ 0 mls/hr Q0M PRN IV 03/10/18 21:00 04/02/18 02:58 03/11/18 07:24 16 MLS/HR Propofol (Diprivan Iv Emulsion 100ml Vial) 1 dose UD PRN IV 03/11/18 07:50 03/14/18 07:49 03/12/18 09:03 1 DOSE Furosemide 40 mg/ Syringe 4 ml @ 4 mls/min BID17 IV 03/11/18 09:00 Future Hold 03/11/18 08:19 4 MLS/MIN Insulin Glargine (Lantus Solostar Pen) BID@0800,2000 SC 03/11/18 20:00 04/10/18 19:59 03/12/18 08:35 4 UNITS Acetazolamide Sodium 500 mg/ Syringe 5 ml @ 5 mls/min ONE ONCE IV 03/12/18 10:00 03/12/18 10:01 03/12/18 09:05 5 MLS/MIN Vital Signs: Date Time Temp Pulse Resp B/P (MAP) Pulse Ox O2 Delivery O2 Flow Rate FiO2 03/12/18 07:21 40 03/12/18 06:01 95 23 136/84 (101) 93 03/12/18 06:00 88 23 03/12/18 05:01 92 22 123/86 (98) 93 03/12/18 05:00 89 23 91 03/12/18 04:40 40 03/12/18 04:22 40 03/12/18 04:22 91 Mechanical Ventilator 40 03/12/18 04:00 36.7 76 24 83/56 (65) 95 03/12/18 03:00 82 24 89/65 (73) 95 03/12/18 02:02 92 24 103/92 (96) 03/12/18 02:00 92 24 03/12/18 01:27 40 03/12/18 01:00 76 24 88/58 (68) 92 03/12/18 00:27 40 03/12/18 00:27 91 Mechanical Ventilator 40 03/12/18 00:00 36.9 82 24 94/58 (70) 91 03/11/18 23:20 89 24 104/84 (91) 03/11/18 23:16 94 27 137/88 (104) 88 03/11/18 23:02 100 19 159/98 (118) 89 03/11/18 23:00 101 25 74 03/11/18 22:24 40 03/11/18 22:00 81 24 88/54 (65) 91 03/11/18 21:00 85 24 88/53 (65) 92 Mechanical Ventilator 40 03/11/18 20:16 96 23 112/69 (83) 90 Mechanical Ventilator 40 03/11/18 20:00 37.9 101 24 134/81 (98) 89 Mechanical Ventilator 40 03/11/18 20:00 40 03/11/18 20:00 91 Mechanical Ventilator 40 03/11/18 19:35 40 03/11/18 19:30 98 25 147/108 (121) 83 Mechanical Ventilator 40 03/11/18 19:15 82 24 85/50 (62) 92 Mechanical Ventilator 40 03/11/18 18:00 89 24 88/53 (65) 99 Mechanical Ventilator 40 03/11/18 17:35 40 03/11/18 17:00 104 24 142/105 (117) 91 Mechanical Ventilator 40 03/11/18 16:00 94 Mechanical Ventilator 40 03/11/18 16:00 40 03/11/18 16:00 37.9 99 24 149/87 (107) 90 Mechanical Ventilator 50 03/11/18 15:42 50 03/11/18 15:00 85 24 87/51 (63) 89 Mechanical Ventilator 50 03/11/18 14:36 40 03/11/18 14:00 97 24 176/103 (127) 78 Mechanical Ventilator 50 03/11/18 13:00 109 22 165/109 (127) 87 Mechanical Ventilator 40 03/11/18 12:20 40 03/11/18 12:00 37.8 98 22 163/101 (121) 91 Mechanical Ventilator 40 03/11/18 12:00 50 03/11/18 12:00 89 Mechanical Ventilator 40 03/11/18 10:00 76 24 87/52 (64) 91 Mechanical Ventilator 40 Laboratory Results: Last 24 Hours Test 03/11/18 12:25 03/11/18 16:20 03/11/18 19:56 03/12/18 00:07 Bedside Glucose 95 mg/dl 134 mg/dl 137 mg/dl 152 mg/dl Test 03/12/18 04:08 03/12/18 04:31 03/12/18 07:51 03/12/18 07:58 White Blood Count 13.66 K/uL Red Blood Count 3.39 M/uL Hemoglobin 10.7 g/dL Hematocrit 32.4 % Mean Corpuscular Volume 95.6 fL Mean Corpuscular Hemoglobin 31.6 pg Mean Corpuscular Hemoglobin Concent 33.0 g/dl RDW Standard Deviation 47.1 fL RDW Coefficient of Variation 13.7 % Platelet Count 154 K/uL Mean Platelet Volume 9.5 fL Nucleated RBC Absolute Count (auto) 0.02 K/uL Nucleated Red Blood Cells % 0.1 % Sodium Level 139 mmol/L Potassium Level 3.9 mmol/L Chloride Level 98 mmol/L Carbon Dioxide Level 37 mmol/L Anion Gap 4.0 mmol/L Blood Urea Nitrogen 52 mg/dl Creatinine 1.42 mg/dl Est Creatinine Clear Calc Drug Dose 69.2 ml/min Estimated GFR () 64.9 Estimated GFR (Non- 56.0 BUN/Creatinine Ratio 36.5 Random Glucose 187 mg/dl Calcium Level 8.8 mg/dl Phosphorus Level 4.0 mg/dl Magnesium Level 2.3 mg/dl Total Bilirubin 1.1 mg/dl Direct Bilirubin 0.3 mg/dl Aspartate Amino Transf (AST/SGOT) 50 U/L Alanine Aminotransferase (ALT/SGPT) 84 U/L Alkaline Phosphatase 80 U/L Total Protein 6.1 gm/dl Albumin 2.8 gm/dl Globulin 3.3 gm/dl Albumin/Globulin Ratio 0.8 Bedside Glucose 214 mg/dl 114 mg/dl Blood Gas Sample Site L Radial Bedside Blood Gas pH (LAB) 7.50 Bedside Blood Gas pCO2 (LAB) 49 mmHg Bedside Blood Gas pO2 (LAB) 72 mmHg Bedside Blood Gas HCO3 (LAB) 38 meq/L Bedside Blood Gas Total CO2 > 40 mEq/l Bedside Blood Gas Base Excess (LAB) 15.0 meq/L Bedside Blood Gas O2 Saturation 95.0 % [place] Test Pass Oxygen Delivery Device Ventilator Bedside Oxygen Rate (breaths/min) 24 Blood Gas Minute Ventilation 9.3 Bedside FiO2 40 % Blood Gas Tidal Volume 400 Blood Gas PEEP 10
[2018-03-12] MEDS ORDERED: ACETAZOLAMIDE IV PUSH 500 MG in SYRINGE 0 ML IV ONE (10:00)
[2018-03-12] MEDS: PANTOprazole INJ 40 MG in SYRINGE 0 ML IV SCH (11:28)
--- NOTE | 2018-03-12 12:04 | PULMONARY PROGRESS NOTE ---
DATE: 03/12/2018 SUBJECTIVE: The patient still appears agitated, though reasonably sedated. There was a question of an air leak around the cuff, but the patient appears to be receiving adequate tidal volumes with satisfactory and stable blood gases. He remains hemodynamically stable and is scheduled for tracheostomy tomorrow. I met with the team that included Dr. Somers, Dr. Kramer and Dr. Stubbs, had a discussion with the family concerning tracheostomy tomorrow and try to address questions they had. We also brought up possible J-tube or PEG tube insertion concomitantly and will discuss further with surgery. PHYSICAL EXAMINATION: CURRENT VITAL SIGNS: Temperature 37.6, pulse 84 and regular, respiratory rate 16, blood pressure 82/52, 91% sat on current vent settings with 35% FiO2. SKIN: Ecchymosis. HEENT: Atraumatic, normocephalic. PERRLA. LUNGS: Rales bilaterally. CARDIAC: Sinus tachycardia. No murmurs or gallops. ABDOMEN: Soft, protuberant. EXTREMITIES: Trace pedal edema. No clubbing. Peripheral cyanosis. NEUROLOGICAL: Cannot evaluate. LABORATORY DATA: White count 13,600, H and H 10.7 and 32.4. ABGs, pH 7.44, pCO2 of 52, pO2 of 72 on current vent settings of 35% FiO2 and PEEP at 10 cm. BUN 52, creatinine 1.4, albumin 2.8. The patient's weight is down to 89.5 kilograms from 102.5 kilograms on admission. ASSESSMENT AND PLAN: Overall, this is a 52-year-old morbidly obese white male with chronic obstructive pulmonary disease and history of chronic hypersensitivity pneumonitis panel, now what appears to be in ARDS/pneumonitis pattern requiring long-term mechanical ventilator assistance, scheduled for tracheostomy tomorrow and will make plans for either VICTORINA to insert a PEG tube or Dr. Richards to insert a J-tube while the patient under anesthesia following tracheostomy tube placement.
--- NOTE | 2018-03-12 12:47 | Pharmacy Progress Note ---
Pharmacy Glycemic Short Note 2 Date of Service Mar 12, 2018. OUTPATIENT ANTIDIABETIC REGIMEN: * None Item Value Date Time Bedside Glucose 144 mg/dl H 03/12/18 1132 Bedside Glucose 114 mg/dl H 03/12/18 0758 Bedside Glucose 214 mg/dl H 03/12/18 0431 Random Glucose 187 mg/dl H 03/12/18 0408 Bedside Glucose 152 mg/dl H 03/12/18 0007 Bedside Glucose 137 mg/dl H 03/11/18 1956 Bedside Glucose 134 mg/dl H 03/11/18 1620 Bedside Glucose 95 mg/dl 03/11/18 1225 Bedside Glucose 113 mg/dl H 03/11/18 0800 Random Glucose 88 mg/dl 03/11/18 0417 ASSESSMENT: 03/12/18 * BSGs did begin to climb overnight, peaking at 214 however are now trending back to goal * Continuous tube feeds continue @ same rate as yesterday; steroids also continue at same dose; pt remains intubated * Given upwards trend in BSGs will resume basal insulin per scale and up the prandial insulin dose to cover tube feeds 03/11/18 * Multiple stressors continue: mechanical vent, agitation, IV steroids, continuous tube feeds, possible infxn * BSGs have been below desired goal for ICU patient, this is despite receiving continuous tube feeds * Will hold this AM's dose of basal insulin and reduce the prandial insulin dose given to cover tube feeds * Ideally would like BSGs closer to 140-180 range * Episode of hypoglycemia yesterday may have been secondary to IV insulin / Dextrose given for hyperkalemia PLAN FOR INPATIENT GLYCEMIC CONTROL: * Basal insulin (dose increase) * Lantus BID per the following scale: if BSG less than 160 give 4 units; if BSG 160 or greater give 4 units * Bolus insulin * NovoLog per scale Q 4 hours * Goal Range: Low 120 mg/dL - High 150 mg/dL (no change) * Correction Factor: 20 mg/dL/unit (no change) * Nutritional / Prandial insulin per carb ratio of 1 unit per 8 grams CHO consumed (dose increase)
[2018-03-12] MEDS ORDERED: RAPID SEQUENCE INDUCTION BAG ONE (16:08)
--- NOTE | 2018-03-12 16:13 | Progress Note ---
Progress Note Date of Service Mar 12, 2018. Progress Note I was asked by the resident to take a look at the patient for a possible endotracheal cuff leak. The patient has been on a ventilator for several days for ARDS, he has continuous tube feedings and has a significant amount of purposeless movements which are are not controlled with the sedation. The rate of propofol being infused is 25 mcg/kg/min. when it is increased his blood pressure drops into the 80s. When narcotics or benzodiazepines are added his pressure drops. I did feel there was probably a small leak but the tidal volumes delivered were very close to the ventilator setting of 400. I recommended trying a small dose of ketamine to see what happens. He is supposed to have a tracheostomy tomorrow and it is felt that if it is not necessary to change the tube, we should leave it as is. My feeling is this, that if we attempt a tube change and have difficulty with it, he is going to desaturate very quickly. While I was in the ICU the nurse bumped his propofol infusion 5 mcg to 30 mcg/kg/min which he seemed to be tolerating. when he stopped moving. the leak went fro small to minimal. I will also suggest that they use muscle relaxants if the movement becomes a problem again. I discussed this with Dr. Armstrong.
[2018-03-12] MEDS ORDERED: CISATRACURIUM BESYLATE IV SOLN 2 MG/ML 10 ML VIAL IV STA (16:23)
[2018-03-12] MEDS ORDERED: CISATRACURIUM IV BOLUS & DRIP IV STA (16:25)
[2018-03-12] MEDS ORDERED: KETAMINE HCL INJ 50 MG/ML 10 ML VIAL IV SCH (16:30)
[2018-03-12] MEDS ORDERED: NURSING VERBAL MED ORDER ONE ×2 (16:45→17:15)
[2018-03-12] MEDS: CISATRACURIUM BESYLATE INJ 40 MG in SODIUM CHLORIDE 0.9% 100ML 80 ML IV PRN (16:55)
[2018-03-12] MEDS: FENTANYL 1250MCG/250ML NSS 250 ML IV PRN (16:57)
[2018-03-12] MEDS ORDERED: CISATRACURIUM BOLUS FROM BAG IV ONE (17:00)
[2018-03-12] MEDS: PRAVASTATIN SOD 40 MG TAB PO SCH (20:34)
[2018-03-13] VITALS (35 sets, daily range): BP systolic 89–174; BP diastolic 60–116; PULSE 86–114; TEMP 36.8–37.9; O2SAT 89–97
[2018-03-13] MEDS: CISATRACURIUM BESYLATE INJ 40 MG in SODIUM CHLORIDE 0.9% 100ML 80 ML IV PRN (00:31)
[2018-03-13] MEDS: CLONIDINE HCL 0.1 MG TAB PO SCH ×4 (01:08→21:27)
[2018-03-13] MEDS: INSULIN ASPART 100 UNITS/ML 3 ML PEN SC SCH ×6 (04:00→20:00)
[2018-03-13] MEDS: METHYLPREDNISOLONE IV 30 MG in SYRINGE 0 ML IV SCH (05:48)
[2018-03-13 05:54] LABS: HEMATOCRIT 36.7 % (42-52); HEMOGLOBIN 12.3 g/dL (14.0-18.0); MEAN CELL VOLUME 95.6 fL (80-100); MEAN CORPUSCULAR HGB CONC 33.5 g/dl (32-36); MEAN PLATELET VOLUME 9.8 fL (7.4-10.4); NUCLEATED RED BLOOD CELL ABS 0.02 K/uL (0-0); PLATELET COUNT 169 K/uL (130-400); RED CELL DISTRIBUTION WIDTH CV 13.6 % (11.5-14.5); RED CELL DISTRIBUTION WIDTH SD 46.7 fL (36.4-46.3); WHITE BLOOD COUNT 14.97 K/uL (4.8-10.8)
[2018-03-13] MEDS: PROPOFOL IV EMULSION 10 MG/ML 100 ML VIAL IV PRN ×4 (06:20→22:34)
[2018-03-13 06:23] LABS: BASO % 0.2 %; BASO ABS # 0.03 K/uL (0-0.2); LYMPH % 13.8 %; LYMPH ABS # 2.06 K/uL (1.2-3.4); MONO % 7.3 %; MONO ABS # 1.09 K/uL (0.11-0.59); NEUT % 77.4 %; NEUT ABS # 11.59 K/uL (1.4-6.5)
[2018-03-13 06:24] LABS: ALBUMIN 3.1 gm/dl (3.4-5.0); CALCIUM 8.8 mg/dl (8.5-10.1); CREATININE 1.22 mg/dl (0.60-1.40); PHOSPHORUS 3.9 mg/dl (2.5-4.9); POTASSIUM 3.8 mmol/L (3.5-5.1); TOTAL PROTEIN 6.9 gm/dl (6.4-8.2)
[2018-03-13] MEDS: IPRATROPIUM BROMIDE HFA INHALER INH SCH ×4 (07:02→19:50)
[2018-03-13] MEDS: LEValbuterol HFA 15GM INHALER INH SCH ×4 (07:02→19:51)
--- NOTE | 2018-03-13 07:08 | DIAGNOSTIC IMAGING REPORT ---
CHEST ONE VIEW PORTABLE CLINICAL HISTORY: Respiratory failure PNEUMONIA COMPARISON STUDY: 03/12/2018 FINDINGS: There is a prominent scoliosis. A nasogastric tube is again visualized. There is an endotracheal tube 34 mm above the raad. The right internal jugular central venous catheter projects over the superior vena cava. The deformities are again evident. There are bilateral airspace opacities with slight improvement in left lung aeration.[ IMPRESSION: Bilateral pulmonary airspace opacities with slight interval improvement of left lung aeration Electronically signed by: Isma London M.D. 03/13/2018 7:07 AM Dictated Date/Time: 03/13/2018 7:06 AM
--- NOTE | 2018-03-13 07:56 | ELECTROENCEPHALOGRAPH REPORT ---
REQUESTING PHYSICIAN: Dr. Enrrique Stubbs. CLINICAL DIAGNOSIS: Chronic obstructive pulmonary disease, respiratory failure, prolonged intubation with agitation on attempts to extubate, question underlying seizure activity. EEG DIAGNOSIS: Somewhat technically limited tracing due to muscle movement artifact, but otherwise essentially normal during wakefulness. DESCRIPTION OF TRACING: This EEG was done in the ICU with simultaneous video analysis of the patient's movement and behavior. Photic stimulation and hyperventilation were not performed. There was quite a bit of muscle and movement artifact with flailing of the limbs, rotation of the head, but there are sufficient periods of time during which the tracing is interpretable and during these intervals there appears to be evidence for a background rhythm of low voltage in the alpha range of up to 10 Hz of maximum frequency and 20 microvolts of maximum amplitude which is symmetrical in posterior head regions. Polymorphic mid to upper frequency modest voltage theta activity is seen centrally again in a symmetrical fashion. Beta activity is very difficult to ascertain due to the frontal muscle movement artifacts. At no time during the waking tracing is there evidence for potentially epileptogenic activity for polyspike or spike wave bursts, no focal sharp waves or focal spikes and the movement certainly do not correlate with anything recorded on the EEG, but beyond muscle artifact. INTERPRETATION: This EEG diagnosis is essentially normal, albeit marred by quite a bit of muscle movement artifacts, but revealing no evidence for potentially epileptogenic activity or ongoing subclinical seizure activity.
[2018-03-13] MEDS: INSULIN GLARGINE SOLOSTAR 100 UNITS/ML 3 ML PEN SC SCH ×2 (08:00→20:00)
[2018-03-13] MEDS: CASPOFUNGIN INJ 50 MG in SODIUM CHLORIDE 0.9% 100ML 100 ML IV SCH (08:24)
[2018-03-13] MEDS: PAROXETINE 20 MG TAB PO SCH (08:25)
[2018-03-13] MEDS: DOCUSATE SODIUM 100 MG/10 ML UDC PO SCH ×2 (08:25→21:26)
[2018-03-13] MEDS: GABAPENTIN 100 MG CAP PO SCH ×2 (08:25→21:26)
[2018-03-13] MEDS: SENNA 8.8 MG/5 ML UDP PO SCH ×2 (08:26→21:26)
--- NOTE | 2018-03-13 09:29 | Gastrointestinal Consultation ---
Gastrointestinal Consultation Date of Consultation: Mar 13, 2018 Attending Physician: Dr. London Consulting Physician: Dr. Di Hubbard Reason for Consultation: Consider PEG tube History of Present Illness Patient is a 52 year old male patient of Bibiana Schneider and Dr. Barker with a a hx of COPD (on continuous home O2 and steroid dependent), sleep apnea who was admitted on 03/01/28 for respiratory failure. His hospital course has included ventilation and a tracheostomy is planned for later today. GI is being consulted to consider PEG tube placement. The pt is sedated thus I am unable to obtain a ROS from him. His , Trudy is at the bedside. She asks for a PEG to be placed and she plans to take him home on a ventilator and provide PEG tube feedings. Past Medical/Surgical History Medical Problems: (1) Asthma Status: Chronic (2) Bilateral pneumonia Status: Acute (3) Chest pain, unspecified Status: Acute (4) Chronic back pain Status: Chronic (5) COPD exacerbation Status: Acute (6) Depression Status: Chronic (7) Dyslipidemia Status: Chronic (8) Gastroesophageal reflux disease Status: Chronic (9) Migraine Status: Chronic (10) Pericarditis Status: Acute (11) Pneumonitis Status: Acute (12) Scoliosis Status: Chronic (13) Sleep disorder Status: Chronic Past Medical History: 1. Asthma/[employer] 2. Sleep Apnea 3. Chronic back pain 4. Scoliosis 5. Depression 6. Hyperlipidemia 7. GERD Past Surgical History: 1. Most recent EGD on 11/19/[address] Hubbard with diffuse gastritis otherwise normal. 2. Spina surgery for scoliosis 3. Lithotripsy and ureteral stent 4. Nasal surgery 5. Tonsillectomy Family History Diabetes mellitus FATHER FH: cancer BROTHER (lung CA) FH: heart disease FATHER (fatal IA/stroke age 79) BROTHER (IA in early 50s) FH: kidney disease FHx: gallstones Hypertension Stroke FATHER Social History Smoking Status: Current Every Day Smoker Alcohol Use: none Drug Use: none Marital Status: Housing Status: lives with significant other Occupation Status: employed Allergies Coded Allergies: No Known Allergies (Unverified , 03/01/18) Current Medications Home Meds and Scripts Medications Dose Route/Sig Max Daily Dose Days Date Category Dose Instructions Prednisone 5 Mg Tab 5 Mg PO UD 03/01/18 Reported Aspirin Ec (Aspirin) 325 Mg Tab 325 Mg PO DAILY 03/01/18 Reported Dulera 200/5 Mcg (Mometasone Furoate-Formoterol) 1 Aer Aer 2 Puffs INH BID 12/01/17 Reported Levalbuterol 1.25 Mg/0.5 Ml Nebu 1.25 Mg INH Q4H 12/01/17 Reported Combivent Respimat (Ipratropium-Albuterol) 1 Aer Aer 1 Puffs INH QID 12/01/17 Reported Pravastatin Sodium (Pravastatin Sod) 40 Mg Tab 1 Tab PO HS 12/01/17 Reported Ranitidine HCl 300 Mg Tab 1 Tab PO BID 12/01/17 Reported Prednisone 50 Mg Tab 50 Mg PO UD 12/01/17 Reported Prednisone 10 Mg Tab 10 Mg PO TID 12/01/17 Reported Neurontin (Gabapentin) 100 Mg Cap 100 Mg PO BID 12/01/17 Reported [place]-3 (Fish Oil) 1 Ea Cap 2 Cap PO DAILY 01/28/17 Reported Imitrex (Sumatriptan Succinate) 50 Mg Tab 50 Mg PO PRN PRN 11/02/12 Reported Take 50 mg at onset of migraine BURNHAM and repeat in 2 hours if continued BURNHAM. Amitriptyline Hcl 50 Mg Tab 75 Mg PO HS 11/02/12 Reported Paxil (Paroxetine Hcl) 40 Mg Tab 40 Mg PO DAILY 11/02/12 Reported Review of Systems Unable to obtain ROS from pt. Review of records and interview with tells us that had a worsening of his chronic COPD. He has been afebrile and comfortable. Physical Exam Date Time Temp Pulse Resp B/P (MAP) Pulse Ox O2 Delivery O2 Flow Rate FiO2 03/13/18 07:05 30 03/13/18 06:00 103 16 152/116 (128) 03/13/18 05:00 105 16 156/97 (116) 03/13/18 04:22 30 03/13/18 04:22 93 Mechanical Ventilator 30 03/13/18 04:20 30 03/13/18 04:00 37.7 103 16 165/105 (125) 91 03/13/18 03:00 106 16 164/109 (127) 91 03/13/18 02:00 103 16 173/103 (126) 90 03/13/18 01:28 30 03/13/18 01:05 105 20 174/112 (132) 89 6/18/18 00:00 30 18/18 00:00 36.8 101 16 152/98 (116) 92 1818 00:00 93 Mechanical Ventilator 30 18 23:00 102 16 148/97 (114) 91 03/12/18 22:09 30 03/12/18 22:01 100 16 142/90 (107) 92 18 22:00 100 16 91 18 21:00 100 16 146/93 (110) 90 18 20:30 106 17 145/89 (107) 92 18 20:28 105 16 150/94 (112) 92 18 20:00 36.8 103 16 150/97 (114) 18 20:00 93 Mechanical Ventilator 30 03/12/18 20:00 30 03/12/18 19:30 108 16 153/101 (118) 91 18 19:20 30 18 19:00 105 16 149/87 (107) 91 18 18:15 103 16 142/91 (108) 91 18 18:00 106 17 139/89 (106) 91 Mechanical Ventilator 30 18 17:45 104 17 135/86 (102) 91 Mechanical Ventilator 30 03/12/18 17:43 105 16 149/87 (107) 91 Mechanical Ventilator 30 03/12/18 17:30 107 18 140/96 (111) 89 Mechanical Ventilator 30 03/12/18 17:27 30 17/18 17:15 105 19 126/81 (96) 89 Mechanical Ventilator 30 18 17:00 36.7 108 18 133/97 (109) 89 Mechanical Ventilator 30 17/18 16:00 100 17 101/83 (89) 87 Mechanical Ventilator 30 17/18 16:00 91 Mechanical Ventilator 30 17/18 16:00 30 17/18 15:48 30 17/18 15:00 101 19 106/83 (91) 89 Mechanical Ventilator 30 17/18 14:05 30 17/18 14:00 90 0 97/71 (80) 88 Mechanical Ventilator 30 17/18 13:00 95 16 132/86 (101) 90 Mechanical Ventilator 30 6/17/18 12:00 91 Mechanical Ventilator 30 03/12/18 12:00 37.6 106 15 120/82 (95) 91 Mechanical Ventilator 30 03/12/18 12:00 30 03/12/18 11:29 30 03/12/18 11:00 81 16 82/53 (63) 93 Mechanical Ventilator 30 03/12/18 10:25 30 03/12/18 10:00 84 16 82/52 (62) 91 Mechanical Ventilator 30 General Appearance: no apparent distress Neck: no JVD Respiratory/Chest: + decreased breath sounds, + crackles, + wheezing Cardiovascular: regular rate, rhythm, no JVD, no murmur Abdomen: non tender, soft Extremities: non-tender Neurologic/Psych: + pertinent finding (sedated) Skin: no jaundice Laboratory Results Last 24 Hours Test 03/12/18 10:21 03/12/18 11:32 03/12/18 16:35 03/12/18 20:22 Blood Gas Sample Site R Radial Bedside Blood Gas pH (LAB) 7.44 Bedside Blood Gas pCO2 (LAB) 52 mmHg Bedside Blood Gas pO2 (LAB) 72 mmHg Bedside Blood Gas HCO3 (LAB) 35 meq/L Bedside Blood Gas Total CO2 36 mEq/l Bedside Blood Gas Base Excess (LAB) 11.0 meq/L Bedside Blood Gas O2 Saturation 94.0 % [place] Test Pass Oxygen Delivery Device Ventilator Bedside Oxygen Rate (breaths/min) 16 Blood Gas Minute Ventilation 5.2 Bedside FiO2 30 % Blood Gas Tidal Volume 400 Blood Gas PEEP 10 Bedside Glucose 144 mg/dl 133 mg/dl 122 mg/dl Test 03/13/18 00:28 03/13/18 04:35 03/13/18 05:41 03/13/18 06:00 Bedside Glucose 113 mg/dl 141 mg/dl White Blood Count 14.97 K/uL Red Blood Count 3.84 M/uL Hemoglobin 12.3 g/dL Hematocrit 36.7 % Mean Corpuscular Volume 95.6 fL Mean Corpuscular Hemoglobin 32.0 pg Mean Corpuscular Hemoglobin Concent 33.5 g/dl Platelet Count 169 K/uL Mean Platelet Volume 9.8 fL Neutrophils (%) (Auto) 77.4 % Lymphocytes (%) (Auto) 13.8 % Monocytes (%) (Auto) 7.3 % Eosinophils (%) (Auto) 0.0 % Basophils (%) (Auto) 0.2 % Neutrophils # (Auto) 11.59 K/uL Lymphocytes # (Auto) 2.06 K/uL Monocytes # (Auto) 1.09 K/uL Eosinophils # (Auto) 0.00 K/uL Basophils # (Auto) 0.03 K/uL RDW Standard Deviation 46.7 fL RDW Coefficient of Variation 13.6 % Immature Granulocyte % (Auto) 1.3 % Immature Granulocyte # (Auto) 0.20 K/uL Nucleated RBC Absolute Count (auto) 0.02 K/uL Nucleated Red Blood Cells % 0.2 % Hypersegmented Polys 1+ Sodium Level 140 mmol/L Potassium Level 3.8 mmol/L Chloride Level 104 mmol/L Carbon Dioxide Level 32 mmol/L Anion Gap 4.0 mmol/L Blood Urea Nitrogen 42 mg/dl Creatinine 1.22 mg/dl Est Creatinine Clear Calc Drug Dose 78.5 ml/min Estimated GFR () 78.0 Estimated GFR (Non- 67.3 BUN/Creatinine Ratio 34.6 Random Glucose 136 mg/dl Calcium Level 8.8 mg/dl Phosphorus Level 3.9 mg/dl Magnesium Level 2.1 mg/dl Total Bilirubin 0.8 mg/dl Direct Bilirubin 0.2 mg/dl Aspartate Amino Transf (AST/SGOT) 37 U/L Alanine Aminotransferase (ALT/SGPT) 81 U/L Alkaline Phosphatase 80 U/L Total Protein 6.9 gm/dl Albumin 3.1 gm/dl Procalcitonin 0.18 ng/ml Test 03/13/18 07:01 03/13/18 07:34 Blood Gas Sample Site R Radial Bedside Blood Gas pH (LAB) 7.40 Bedside Blood Gas pCO2 (LAB) 51 mmHg Bedside Blood Gas pO2 (LAB) 79 mmHg Bedside Blood Gas HCO3 (LAB) 31 meq/L Bedside Blood Gas Total CO2 33 mEq/l Bedside Blood Gas Base Excess (LAB) 7.0 meq/L Bedside Blood Gas O2 Saturation 95.0 % [place] Test Pass Oxygen Delivery Device Ventilator Bedside Oxygen Rate (breaths/min) 16 Blood Gas Minute Ventilation 6.4 Bedside FiO2 30 % Blood Gas Tidal Volume 400 Blood Gas PEEP 10 Bedside Glucose 125 mg/dl Impression Patient is a 52 year old male who will likely need half-way ventilation and therefor needs nutritional support through placement of a PEG. Plan 1. Will plan for PEG tube placement tomorrow (Endoscopy tells us that there is more availability for staff for the procedure tomorrow). 2. Please hold anticoagulants (Lovenox 12 hrs prior, Heparin 6 hrs prior). 3. Please stop any tube feedings at midnight tonight in anticipation of the procedure tomorrow. I saw and evaluated the patient. He has a history of respiratory failure and is presently on a ventilator with a suspected need for long-term mechanical ventilation and feeding. A feeding tube has been requested by the hospitalist service for continued nutrition. Physical examination No obvious distress, patient on ventilator sedated Impression: Patient with inability to eat due to recent respiratory failure on mechanical ventilation. I discussed the risks of feeding tube placement with the patient's who is his power of compliance attorney. Consent was obtained today.
--- NOTE | 2018-03-13 10:57 | Progress Note ---
Internal Med Progress Note Date of Service: Mar 13, 2018. Provider Documentation: SUBJECTIVE: Patient is sedated today. The plan is for tracheostomy today. Evaluation for PEG by GI. OBJECTIVE: General- agitated Head- atraumatic Neck- supple, no JVD MOUTH/OROPHARYNX - Endotracheal tube NECK - RIGHT IJ CVL in place. LUNGS - on mechanical ventilation. Coarse breath sounds bilaterally. Abdomen- soft, bowel sounds present Extremities- lower extremity pulses intact Neuro- sedated ASSESSMENT & PLAN: 52-year-old male with a history of asthma & COPD who was admitted to the ICU for acute on chronic respiratory failure with noted hypoxia and respiratory distress. He was unable to tolerate BiPAP and has been maintained on 5L of oxygen via oxymask. 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 currently still on mechanical ventilation and remains intubated Resp: Acute on Chronic Hypoxemic/Hypercapneic Respiratory Failure secondary to Hypersensitivity Pneumonitis/ARDS vs pneumonia -methylprednisone 20 mg IV q8 hours - xopenex -CXR 03/13/18 AM: Bilateral pulmonary airspace opacities with slight interval improvement of left lung aeration -Pulmonary service has recommended tracheostomy/ventilation, planning for this to be performed on 03/13/18 Neuro: - versed while on mechanical ventilation for sedation -agitation was initially thought to be due to opioid withdrawal, and patient is on clonidine and roxicodone -03/11/18 started patient on propofol to sedate given upper extremity movements with agitation, Head CT: No acute intracranial findings, Brain MRI: 1. No evidence of intracranial mass 2. No evidence of acute or subacute infarction 3. Foci of increased T2 signal within the mastoids likely inflammatory, otherwise normal MRI the brain for age, This EEG diagnosis is essentially normal, quite a bit of muscle movement artifacts, but revealing no evidence for potentially epileptogenic activity or ongoing subclinical seizure activity. Neurology service does not assess that there is an primary underlying seizure issue, but rather a toxic metabolic encephalopathy related to his pulmonary disease. -03/11/18: Spoke with patient's who also reports that even at home at baseline, patient moves his extremities (possibly involuntary?) during his sleep and this has been going on for years but patient was never assessed by a physician whether he has seizures or sleep disorder -Pain continue fentanyl prn for acute pain; Chronic Pain: Continue Gabapentin; Depression: Continue Paxil Cardiovascular: -Echocardiogram on 03/12/18 showed LV systolic function, EF 65-70%, No segmental left ventricular wall motion abnormalities * Grade I diastolic dysfunction. * Poorly visualized RV. * No significant valvular pathology. -hold aspirin for tracheostomy on 03/13/18 Fluids/Renal/Electrolytes -Acute Kidney injury improving as creatinine downtrending -high normal potassium vs hyperkalemia, 03/10/18 serum potassium is 5.7, patient had been able to make bowel movements from previous milk of magnesia; hyperkalemia protocol with Kayexalate, calcium gluconate, albuterol, 10 units of regular insulin, D50, Lasix. the repeat serum potassium 6.4 and vascular and Nephrology evaluated whether patient would need dialysis access for the hyperkalemia. 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/04/18, on caspofungin treatment - ICU continuing antifungal because of lot of growth as per their discussion with pathology and caspofungin to be continued -BAL cultures negative, last dose of Zosyn given on 03/08/18 -urinary legionella negative, mycoplasma IgM is negative, mycoplasma IgG is equivocal, - HIV results negative -given LDH elevated at 538, 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; Bactrim stopped on 03/10/18 due to hyperkalemia GI/Nutrition: -enteral feeds to be held later tonight in anticipation of tracheostomy on -GERD/GI prophylaxis: Pantoprazole 40mg IV daily -GI service evaluating for PEG tube placement -[place] Catheter Endocrine: -pharmacy glycemic control consult involved in serum glucose management Heme: - bilateral venous doppler negative for DVT -stable Hgb and platelets Access: Right triple lumen IJ and right radial A line DVT Prophylaxis: heparin sub cut held while awaiting tracheostomy placement today on 03/13/18, SCDs Code status: FULL DISPOSITION Continue monitor in the ICU Vital Signs: Date Time Temp Pulse Resp B/P (MAP) Pulse Ox O2 Delivery O2 Flow Rate FiO2 03/13/18 10:07 30 03/13/18 07:05 30 03/13/18 06:00 103 16 152/116 (128) 03/13/18 05:00 105 16 156/97 (116) 03/13/18 04:22 30 03/13/18 04:22 93 Mechanical Ventilator 30 03/13/18 04:20 30 03/13/18 04:00 37.7 103 16 165/105 (125) 91 03/13/18 03:00 106 16 164/109 (127) 91 03/13/18 02:00 103 16 173/103 (126) 90 03/13/18 01:28 30 03/13/18 01:05 105 20 174/112 (132) 89 03/13/18 00:00 30 03/13/18 00:00 36.8 101 16 152/98 (116) 92 03/13/18 00:00 93 Mechanical Ventilator 30 03/12/18 23:00 102 16 148/97 (114) 91 18 22:09 30 03/12/18 22:01 100 16 142/90 (107) 92 18 22:00 100 16 91 03/12/18 21:00 100 16 146/93 (110) 90 03/12/18 20:30 106 17 145/89 (107) 92 03/12/18 20:28 105 16 150/94 (112) 92 18 20:00 36.8 103 16 150/97 (114) 03/12/18 20:00 93 Mechanical Ventilator 30 03/12/18 20:00 30 18 19:30 108 16 153/101 (118) 91 18 19:20 30 18 19:00 105 16 149/87 (107) 91 18 18:15 103 16 142/91 (108) 91 18 18:00 106 17 139/89 (106) 91 Mechanical Ventilator 30 18 17:45 104 17 135/86 (102) 91 Mechanical Ventilator 30 18 17:43 105 16 149/87 (107) 91 Mechanical Ventilator 30 18 17:30 107 18 140/96 (111) 89 Mechanical Ventilator 30 03/12/18 17:27 30 03/12/18 17:15 105 19 126/81 (96) 89 Mechanical Ventilator 30 03/12/18 17:00 36.7 108 18 133/97 (109) 89 Mechanical Ventilator 30 03/12/18 16:00 100 17 101/83 (89) 87 Mechanical Ventilator 30 03/12/18 16:00 91 Mechanical Ventilator 30 03/12/18 16:00 30 18 15:48 30 03/12/18 15:00 101 19 106/83 (91) 89 Mechanical Ventilator 30 03/12/18 14:05 30 03/12/18 14:00 90 0 97/71 (80) 88 Mechanical Ventilator 30 03/12/18 13:00 95 16 132/86 (101) 90 Mechanical Ventilator 30 03/12/18 12:00 91 Mechanical Ventilator 30 03/12/18 12:00 37.6 106 15 120/82 (95) 91 Mechanical Ventilator 30 03/12/18 12:00 30 03/12/18 11:29 30 03/12/18 11:00 81 16 82/53 (63) 93 Mechanical Ventilator 30 Lab Results: Results Past 24 Hours Test 03/12/18 11:32 03/12/18 16:35 03/12/18 20:22 03/13/18 00:28 Range/Units Bedside Glucose 144 133 122 113 70-99 mg/dl Test 03/13/18 04:35 03/13/18 05:41 03/13/18 06:00 03/13/18 07:01 Range/Units Bedside Glucose 141 70-99 mg/dl White Blood Count 14.97 4.8-10.8 K/uL Red Blood Count 3.84 4.7-6.1 M/uL Hemoglobin 12.3 14.0-18.0 g/dL Hematocrit 36.7 42-52 % Mean Corpuscular Volume 95.6 80-100 fL Mean Corpuscular Hemoglobin 32.0 25-34 pg Mean Corpuscular Hemoglobin Concent 33.5 32-36 g/dl Platelet Count 169 130-400 K/uL Mean Platelet Volume 9.8 7.4-10.4 fL Neutrophils (%) (Auto) 77.4 % Lymphocytes (%) (Auto) 13.8 % Monocytes (%) (Auto) 7.3 % Eosinophils (%) (Auto) 0.0 % Basophils (%) (Auto) 0.2 % Neutrophils # (Auto) 11.59 1.4-6.5 K/uL Lymphocytes # (Auto) 2.06 1.2-3.4 K/uL Monocytes # (Auto) 1.09 0.11-0.59 K/uL Eosinophils # (Auto) 0.00 0-0.5 K/uL Basophils # (Auto) 0.03 0-0.2 K/uL RDW Standard Deviation 46.7 36.4-46.3 fL RDW Coefficient of Variation 13.6 11.5-14.5 % Immature Granulocyte % (Auto) 1.3 % Immature Granulocyte # (Auto) 0.20 0.00-0.02 K/uL Nucleated RBC Absolute Count (auto) 0.02 0-0 K/uL Nucleated Red Blood Cells % 0.2 % Hypersegmented Polys 1+ Sodium Level 140 136-145 mmol/L Potassium Level 3.8 3.5-5.1 mmol/L Chloride Level 104 98-107 mmol/L Carbon Dioxide Level 32 21-32 mmol/L Anion Gap 4.0 3-11 mmol/L Blood Urea Nitrogen 42 7-18 mg/dl Creatinine 1.22 0.60-1.40 mg/dl Est Creatinine Clear Calc Drug Dose 78.5 ml/min Estimated GFR () 78.0 Estimated GFR (Non- 67.3 BUN/Creatinine Ratio 34.6 10-20 Random Glucose 136 70-99 mg/dl Calcium Level 8.8 8.5-10.1 mg/dl Phosphorus Level 3.9 2.5-4.9 mg/dl Magnesium Level 2.1 1.8-2.4 mg/dl Total Bilirubin 0.8 0.2-1 mg/dl Direct Bilirubin 0.2 0-0.2 mg/dl Aspartate Amino Transf (AST/SGOT) 37 15-37 U/L Alanine Aminotransferase (ALT/SGPT) 81 12-78 U/L Alkaline Phosphatase 80 45-117 U/L Total Protein 6.9 6.4-8.2 gm/dl Albumin 3.1 3.4-5.0 gm/dl Procalcitonin 0.18 0-0.5 ng/ml Blood Gas Sample Site R Radial Bedside Blood Gas pH (LAB) 7.40 7.35-7.45 Bedside Blood Gas pCO2 (LAB) 51 35-46 mmHg Bedside Blood Gas pO2 (LAB) 79 80-95 mmHg Bedside Blood Gas HCO3 (LAB) 31 19-24 meq/L Bedside Blood Gas Total CO2 33 24-31 mEq/l Bedside Blood Gas Base Excess (LAB) 7.0 -9-1.8 meq/L Bedside Blood Gas O2 Saturation 95.0 90-95 % [place]ito Test Pass Oxygen Delivery Device Ventilator Bedside Oxygen Rate (breaths/min) 16 Blood Gas Minute Ventilation 6.4 Bedside FiO2 30 % Blood Gas Tidal Volume 400 Blood Gas PEEP 10 Test 03/13/18 07:34 Range/Units Bedside Glucose 125 70-99 mg/dl
--- NOTE | 2018-03-13 11:31 | SURGICAL CONSULTATION ---
DATE OF CONSULTATION: 03/13/2018 DATE OF CONSULTATION: 03/13/2018 REASON FOR CONSULTATION: Request to percutaneous tracheostomy. HISTORY OF PRESENT ILLNESS: This is a 52-year-old male who has a history of chronic respiratory failure and who appeared with acute decompensation and was admitted 12 days ago on 03/01/2018. His past medical history is significant for hypersensitivity pneumonitis, asthma, sleep apnea and does have a history of cigarette smoking, although fairly light at just less than half pack a day for 40 years. 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 I was asked to evaluate him as he has been on the ventilator. We have been unable to wean him and we feel that a percutaneous tracheostomy is indicated. Dr. Serafin London and I will perform this later today. I discussed this in detail with the patient's at the patient's bedside this morning. The patient was admitted with a progressive cough and shortness of breath. He did not really produce much in the way of sputum upon presentation. He has had some ongoing changes for the last few months and was noted to have ground-glass changes back in 09/2016. A year ago when he was admitted with hypoxemia with these diffuse bilateral ground-glass appearances, it was felt to be secondary to hypersensitivity possibly from old mildew burden. He also has two small pulmonary nodules noted from last summer. He had a bronchoscopy in June and was noted to have EDAC, which felt may be contributing to this. He was admitted with pneumonia in September, but improved a bit, although he still has had difficulty since then. He was placed on steroids and then was admitted for this acute collapse and has been on the ventilator since. PAST MEDICAL HISTORY: 1. Kyphosis. 2. Obesity. 3. Nephrolithiasis. 4. History of cigarette smoking. 5. Asthma for over 10 years. 6. Hypersensitivity pneumonitis. 7. Hypercholesterolemia. 8. Obstructive sleep apnea. 9. Chronic obstructive pulmonary disease. PAST MEDICAL HISTORY: 1. Multiple back surgeries for his kyphosis. 2. Nasal surgery. 3. Renal lithotripsy. MEDICATIONS: (As an outpatient): 1. Ranitidine. 2. Pravastatin. 3. Combivent. 4. Imitrex. 5. Paxil. 6. Dulera. 7. Nebulizer therapy. 8. Prednisone. 9. Amitriptyline. 10. Aspirin. 11. Gabapentin. 12. Paxil. ALLERGIES: No known drug allergies. SOCIAL HISTORY: The patient smokes for the last 40 years. He has been smoking less than half pack a day. He is and lives with his . He is employed. According, he is not a user of alcohol. FAMILY MEDICAL HISTORY: Father diabetes mellitus. His brother had lung cancer. Father also at age 59 from coronary artery disease, myocardial infarction and cerebrovascular accident. Another brother in early 50s from myocardial infarction. There is a family history of gallstones, hypertension. REVIEW OF SYSTEMS: Please see history of present illness. There have been no GI issues such as reflux or nausea or vomiting prior to his admission. Neurologically, his did find him in confused state at times with some apparent myoclonus activity. He underwent an EEG, which showed no evidence of seizure activity. He is being heavily sedated because the ventilator. According to the chart, there has been no change in his hearing or vision. He has had no acute focal deficits neurologically. Denies chest pain or palpitations. However, he does have multiple problems with his pulmonary system as noted in history of present illness. He has had no peripheral edema. His weight has been relatively stable. PHYSICAL EXAMINATION: GENERAL: This is a 5 feet 10 inch, 196-pound male, who is sedated on the vent. HEENT: Pupils are small, but reactive. Sclerae are anicteric. He is orally intubated. NECK: Short and thick, but I detect no adenopathy. He has no thyromegaly and no carotid bruits. His trachea is easily palpable. LUNGS: Upon auscultation of his lungs, he has rales in both bases and has rhonchi in the upper airways. I detect no wheezing. HEART: He has a regular rate and rhythm of his heart. I do not detect a significant murmur. ABDOMEN: Protuberant, but soft and apparently nontender. EXTREMITIES: I do not detect any edema and he has good pulses. I detect no clubbing. He has no wound breakdown. NEUROLOGIC: I am unable to evaluate him due to his heavy sedation. ASSESSMENT AND PLAN: Prolonged ventilatory support. Dr. Serafin London and I are going to perform a percutaneous tracheostomy at the bedside this afternoon. ARINA
--- NOTE | 2018-03-13 11:59 | Pharmacy Progress Note ---
Pharmacy Glycemic Short Note 2 Date of Service Mar 13, 2018. OUTPATIENT ANTIDIABETIC REGIMEN: * None * A1c = 5.9% Item Value Date Time Bedside Glucose 125 mg/dl H 03/13/18 0734 Bedside Glucose 141 mg/dl H 03/13/18 0435 Bedside Glucose 113 mg/dl H 03/13/18 0028 Bedside Glucose 122 mg/dl H 03/12/18 2022 Bedside Glucose 133 mg/dl H 03/12/18 1635 Bedside Glucose 144 mg/dl H 03/12/18 1132 Bedside Glucose 114 mg/dl H 03/12/18 0758 Bedside Glucose 214 mg/dl H 03/12/18 0431 Random Glucose 187 mg/dl H 03/12/18 0408 Bedside Glucose 152 mg/dl H 03/12/18 0007 ASSESSMENT: 03/13/18 * Glycemic control acceptable * Notable events in last 24 hours: steroid dose being reduced today, pt's tube feeds held yesterday evening and remain on hold, possible trach/PEG today * Given decrease in steroids dose and TF's are on hold; will hold Lantus dose this AM and reduce doses on scale 03/12/18 * BSGs did begin to climb overnight, peaking at 214 however are now trending back to goal * Continuous tube feeds continue @ same rate as yesterday; steroids also continue at same dose; pt remains intubated * Given upwards trend in BSGs will resume basal insulin per scale and up the prandial insulin dose to cover tube feeds 03/11/18 * Multiple stressors continue: mechanical vent, agitation, IV steroids, continuous tube feeds, possible infxn * BSGs have been below desired goal for ICU patient, this is despite receiving continuous tube feeds * Will hold this AM's dose of basal insulin and reduce the prandial insulin dose given to cover tube feeds * Ideally would like BSGs closer to 140-180 range * Episode of hypoglycemia yesterday may have been secondary to IV insulin / Dextrose given for hyperkalemia PLAN FOR INPATIENT GLYCEMIC CONTROL: * Basal insulin (dose decreased) * Lantus BID per the following scale: if BSG less than 160 give 0 units; if BSG 160 or greater give 5 units * Bolus insulin * NovoLog Q 4 hours * Goal Range: Low 130 mg/dL - High 160 mg/dL (increase in goal) * Correction Factor: 25 mg/dL/unit (dose reduction) * Nutritional / Prandial insulin per carb ratio of 1 unit per 10 grams CHO consumed (dose decrease)
--- NOTE | 2018-03-13 13:11 | DIAGNOSTIC IMAGING REPORT ---
ADDENDUM Right internal jugular central venous catheter terminates at the confluence of the right subclavian vein and internal jugular vein. Advancement recommended. Electronically signed by: Bonifacio Fishman M.D. 03/13/2018 2:17 PM Dictated Date/Time: 03/13/2018 2:16 PM ORIGINAL REPORT (CHEST) THORAX WITHOUT CT DOSE: 718.09 mGycm CLINICAL HISTORY: 52 years-old Male with ARDS. Acute on chronic respiratory failure with hypoxia TECHNIQUE: Multiaxial CT images of the chest were performed without contrast. A dose lowering technique was utilized adhering to the principles of ALARA. COMPARISON: Chest radiograph of same day, CTA chest 10/07/2017 FINDINGS: No dominant thyroid nodule identified. Prominent epicardial fat pad is noted without pathologically enlarged lymph nodes identified. Calcified hilar lymph nodes compatible with prior granulomatous disease. The heart demonstrates mild multichamber cardiac enlargement without pericardial effusion. No significant coronary arterial calcifications are noted. There is tortuosity of the thoracic aorta without aneurysm. The unopacified pulmonary arterial tree is unremarkable. Endotracheal tube terminates 1.4 cm superior to the raad. The enteric tube terminates within the mid gastric body. No pneumothorax or pleural effusion. Evaluation of the lung parenchyma is limited secondary to respiratory motion. Minimal subpleural bleb formation in the upper lung zones redemonstrated. There are bilateral groundglass opacities, right greater than left with patchy right greater than left bibasilar areas of consolidation. There are no suspicious pulmonary nodules or masses identified. The central airways appear patent. Layering mucosal secretions are noted throughout the tracheobronchial tree. 3 mm nonobstructing calculus of the superior pole right kidney. Mild gallbladder distention. Soft tissues are unremarkable. Chronic deformity involving several ribs bilaterally with marked sigmoidal scoliosis redemonstrated. Bony fusion involving several vertebral bodies. No acute fracture identified. IMPRESSION: 1. Satisfactory positioning of endotracheal and enteric tubes. 2. Bilateral mixed interstitial and alveolar opacities within a mid and lower lung zone predominant distribution, right greater than left without pleural effusion suggests multifocal infectious or inflammatory pneumonitis or noncardiogenic pulmonary edema. 3. Mild degree of secretions are seen throughout the tracheobronchial tree. 4. Prior granulomatous disease. Electronically signed by: Bonifacio Fishman M.D. 03/13/2018 1:10 PM Dictated Date/Time: 03/13/2018 1:02 PM
[2018-03-13] MEDS: METHYLPREDNISOLONE IV 20 MG in SYRINGE 0 ML IV SCH ×2 (14:17→21:30)
[2018-03-13] MEDS: PANTOprazole INJ 40 MG in SYRINGE 0 ML IV SCH (14:17)
--- NOTE | 2018-03-13 14:20 | DIAGNOSTIC IMAGING REPORT ---
CHEST ONE VIEW PORTABLE HISTORY: 52 years-old Male tracheostomy status post tracheostomy COMPARISON: Chest CT of same day and chest radiograph of same day at 6:39 AM TECHNIQUE: Portable AP view of the chest FINDINGS: Right internal jugular central venous catheter is noted about the right clavicle the distribution of the distal right internal jugular vein. Tracheostomy cannula has been placed overlying the midline, superior to the level of the clavicular heads. Endotracheal tube has been removed in the interval. The enteric tube also appears to have been removed. Cardiac silhouette is mildly enlarged. Bilateral mixed interstitial and alveolar opacities without pneumothorax or large pleural effusion, unchanged. Sigmoidal scoliosis with multiple rib deformities are again noted. IMPRESSION: 1. Interval extubation with placement of tracheostomy cannula overlying the midline, superior to the clavicular heads. 2. Interval removal of enteric tube. 3. Right internal jugular central venous catheter terminates within the region of the distal right internal jugular vein. Advancement recommended. 4. Persistent bilateral mixed interstitial and alveolar opacities. The above report was generated using voice recognition software. It may contain grammatical, syntax or spelling errors. Electronically signed by: Bonifacio Fishman M.D. 03/13/2018 2:19 PM Dictated Date/Time: 03/13/2018 2:15 PM
[2018-03-13] MEDS ORDERED: NORMOSOL R 1,000 ML IV SCH (14:45)
--- NOTE | 2018-03-13 14:56 | DIAGNOSTIC IMAGING REPORT ---
KUB HISTORY: Verification of Coresafe placement COMPARISON: KUB 03/08/2018. FINDINGS: The bowel gas pattern is unremarkable. There are no dilated loops of small bowel to suggest an obstruction. No renal calculi. No ureteral calculi. No pneumoperitoneum or pneumatosis. S-shaped scoliosis. Feeding tube terminates at the gastric antrum. IMPRESSION: The tip of the feeding tube terminates at the gastric antrum. Electronically signed by: Adams Burgess M.D. 03/13/2018 2:55 PM Dictated Date/Time: 03/13/2018 2:54 PM
[2018-03-13] MEDS: FENTANYL 1250MCG/250ML NSS 250 ML IV PRN (15:43)
[2018-03-13] MEDS: SULFA IV SCH (16:00)
[2018-03-13] MEDS ORDERED: NURSING VERBAL MED ORDER ONE (16:00)
[2018-03-13] MEDS: TRIMETH IV SCH (16:00)
[2018-03-13] MEDS: DEXTROSE 5% IV SCH (16:00)
[2018-03-13] MEDS: HEPARIN SOD 5000 UNIT/0.5 ML CARP SQ SCH (16:01)
--- NOTE | 2018-03-13 16:31 | OPERATIVE REPORT ---
DATE OF OPERATION: 03/13/2018 PREOPERATIVE DIAGNOSIS: Prolonged intubation. POSTOPERATIVE DIAGNOSIS: Prolonged intubation. PROCEDURE: Percutaneous tracheostomy with Blue Rhino kit. SURGEON: Edu Jimenez M.D. CO-SURGEONS: Serafin London DO. ANESTHESIA: Sedation with local cystoscopy. SPECIFICS OF PROCEDURE: Mr. Winchester is a 52-year-old male who has presented in respiratory collapse 11 days ago and has no signs of coming off the ventilator any time soon. An attempt to wean him, it was felt that a tracheostomy would be helpful. I discussed this with Pulmonary as well as the patient's family. On the afternoon of 03/13/2018, the patient underwent an uncomplicated insertion of an #8 Shiley percutaneous tracheostomy tube. He tolerated it well. DESCRIPTION OF PROCEDURE: At the patient's bedside, his head was placed and his neck was extended. The appropriate timeout was called. He was then prepped and draped in usual sterile fashion. 1% Xylocaine without epinephrine was used to anesthetize skin and subcutaneous tissues over the tracheostomy. I was able to easily palpate his tracheostomy and we were probably as low as a second or perhaps even third tracheal ring with our needle. The tracheostomy tube was untaped and pulled back and Dr. London performed a fiberoptic bronchoscopy. After anesthetizing anterior trachea, I then used a large needle and went through without difficulty. We could see this on the bronchoscopy. A guidewire was inserted downward and the needle removed. A dilator was used to enlarge this insertion tract and then removed. The Blue Rhino was then placed over the guidewire and enlarged without difficulty. This was then removed and an obturator was placed inside and #8 Shiley which was then slid over the guidewire without difficulty into the tracheostomy under bronchoscopic guidance. The guidewire and obturator were removed. Bronchoscopically, it could be seen that we were in excellent position and there was no bleeding. The tracheostomy cuff was inflated and the inner cannula placed and he got good volumes on the ventilator. I used 0 Prolene to suture this tracheostomy in place and we used Velcro straps to hold in place. He tolerated it quite well. I attest to the content of the Intraoperative Record and any orders documented therein. Any exception s are noted below.
[2018-03-13] MEDS: PROPRANOLOL HCL 10 MG TAB PO SCH ×2 (17:00→23:00)
--- NOTE | 2018-03-13 17:09 | Critical Care Progress Note ---
Critical Care Progress Note Date of Service Mar 13, 2018. Attending Dr. London Subjective Reviewed events of the past 3 days, no significant overnight events. Objective VITAL SIGNS - Vital signs and nursing notes were reviewed. GENERAL - 52-year-old male appearing his stated age. Intubated and sedated. Awakens and agitates easily. SKIN - Multiple areas of ecchymosis noted throughout. HEAD - NC/AT. EYES - Dilated pupils bilaterally. MOUTH/OROPHARYNX - Endotracheal tube in place. Foamy secretions in the oral airway. ET tube at 24 cm NECK - RIGHT IJ Central Venous Catheter in place LUNGS - Chest wall symmetric without accessory muscle use, intercostals retractions, or central cyanosis. Coarse breath sounds bilaterally more pronounced on left side vs right CARDIAC - RRR with S1/S2. No murmur, rubs, or gallops appreciated. ABDOMEN - Abdominal contour protuberant without pulsations or visible masses. BS normoactive all four quadrants. : Campa catheter in place EXTREMITIES - No clubbing or peripheral cyanosis. No pretibial edema present. +3 /5 radial and dorsalis pedis pulses palpated throughout. Strength appears intact bilaterally when patient becomes agitated. NEUROLOGIC - RASS -3; Assessment & Plan Reason Critically Ill: Mr. Winchester is a 52-year-old male with a history of asthma & COPD who was admitted to the ICU for acute on chronic respiratory failure with noted hypoxia and respiratory distress. He was unable to tolerate BiPAP. 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 Mr. Winchester has been difficult to wean off of his sedatives, and his respiratory status has remained unchanged since yesterday. He may benefit from placement of a trach if, by Tuesday, he has not made much progress. Neuro - * Sedation: Versed: Discontinued * Valium 15 mg 4 times daily also discontinued last given 10 mg at noon yesterday * Currently on propofol: 30 mg/h * Added BIS monitoring * Pain: Fentanyl gtt at 50mcg/hr. * Required occasional boluses overnight. * Scheduled oxycodone held, 20 mg 4 times daily last given yesterday at noon Continuing clonidine 0.1 mg 3 times daily Propranolol 10 mg 4 times daily had also been held, both clonidine and propofol were added for physiologic tolerance and subsequent withdrawal type syndrome * Chronic Pain: * Gabapentin * Depression: * Paxil At this point I believe the patient has significant polypharmacy and will require a significant sedation vacation. In light of the waxing and waning mental status and difficulty to control his agitation the patient would be an appropriate candidate to undergo percutaneous tracheostomy to facilitate ventilator weaning as well as sedation vacations. Cardiac - * Continue home statin and ASA * ECHO showed EF = 65-70% w/grade 1 diastolic dysfunction. No wall motion abnormalities. * Tachycardia has improved with initiation of propranolol. Respiratory - * Hypersensitivity Pneumonitis/ARDS: * Currently intubated and requiring mechanical ventilation. * Appreciate pulmonary consult for ventilator management. * Methylprednisolone decreased to 20 mg 3 times daily * Daily CXR * Inhalers scheduled. * Plan for tracheostomy today, will facilitate with thoracic surgery GI - * Tube Feeds (Novasource Renal): * 30mL/hr * On hold for procedure * GERD - Protonix * Began stooling overnight. * Continue q72hr LFT checks 2/2 Caspofungin use. Discussed risks and benefits of percutaneous gastrostomy tube placement, I have consulted gastroenterology, family would like to proceed at this time RENAL/LYTES - * Creatinine improved * Continue to follow lytes - replace appropriately. * No indication for dialysis, will maintain euvolemic at this time. * No additional diuretics today - * Campa in place. * Strict I&Os * Continues with pinkish urine. Continues to improve. ENDO - * Requiring Lantus coverage. * Anticipate improvement as steroid taper decreases. HEME - * Stable H&H. ID - * Suspected PJP: * Continue course of Bactrim, will complete 14 day course empiric treatment * Fungal oral secretions w/ c/o pna: * Caspofungin day 8 of 14 LINES/IV ACCESS - * RIGHT IJ CVL will discontinue after procedure today * PIVs endurance peripheral IV placed today 03/13 * Campa Catheter * Endotracheal Tube DVT PROPHYLAXIS - * sq Heparin q8h * Held this morning dose in anticipation of procedure today I have personally spent 50 minutes of critical care time in the direct management of this patient. This is a life/limb threatening event. This includes time spent evaluating patient, direct bedside care, chart review, placing orders, interpretation of diagnostic studies, discussion with consultants, patient, and family members, as well as other required patient management activities. This time is exclusive of all separately billable procedures, and teaching time and separate from and in addition to any other critical care service time. Consults & Procedures Consultants: ID Pulm Procedures: RIGHT IJ CVL Bronchoscopy Arterial Line, D/Cd Data Medications: Current Inpatient Medications Medications (Trade) Dose Ordered Sig/Nemo Route Start Time Stop Time Status Last Admin Dose Admin Gabapentin (Neurontin Cap) 100 mg BID PO 03/02/18 09:00 04/01/18 08:59 03/13/18 08:25 100 MG Paroxetine HCl (pAXil TAB) 40 mg DAILY PO 03/02/18 09:00 04/01/18 08:59 03/13/18 08:25 40 MG Pravastatin Sodium (Pravachol Tab) 40 mg HS PO 03/02/18 21:00 04/01/18 20:59 03/12/18 20:34 40 MG Ranitidine HCl (zANTac TAB) 300 mg BID PO 03/02/18 09:00 04/01/18 08:59 Future Hold 03/02/18 20:40 300 MG Levalbuterol (Xopenex 0.63 Mg/ 3 Ml Neb) 0.63 mg Q4H PRN INH 03/01/18 23:15 03/31/18 23:14 03/02/18 01:58 0.63 MG Acetaminophen (Tylenol Tab) 1,000 mg Q8H PRN PO 03/01/18 23:45 03/31/18 23:44 Glucose (Glucose 40% Gel) 15-30 GRAMS 15 GRAMS... UD PRN PO 03/02/18 12:45 04/01/18 12:44 Glucose (Glucose Chew Tab) 4-8 Tablets 4 Tabl... UD PRN PO 03/02/18 12:45 04/01/18 12:44 Dextrose (Dextrose 50% 50ML Syringe) 25-50ML 25ML FOR ... UD PRN IV 03/02/18 12:45 04/01/18 12:44 03/10/18 11:08 25 ML Glucagon (Glucagon Inj) 1 mg UD PRN IM 03/02/18 12:45 04/01/18 12:44 Carbohydrates (Carbohydrates For Hypoglycemia) 15-30 GRAMS 15 grams if BSG 54-69... UD PRN PO 03/02/18 12:45 04/01/18 12:44 Miscellaneous Information (Consult Glycemic Management Pharmacy) 1 ea UD PRN N/A 03/02/18 12:45 04/01/18 12:44 Ondansetron HCl (Zofran Inj) 4 mg Q6H PRN IV 03/02/18 23:45 04/01/18 23:44 Pantoprazole Sodium 40 mg/ Syringe 10 ml @ 5 mls/min DAILY@1100 IV 03/03/18 03:30 04/02/18 03:29 03/12/18 11:28 5 MLS/MIN Ipratropium [place] (Atrovent Hfa Inhaler) 4 puffs QIDR INH 03/03/18 08:00 04/02/18 07:59 03/13/18 11:13 4 PUFFS Levalbuterol (Xopenex Hfa Inhaler) 4 puffs QIDR INH 03/03/18 08:00 04/02/18 07:59 03/13/18 11:13 4 PUFFS Heparin Sodium (Porcine) (Heparin Sq 5000 Unit/0.5ml) 5,000 unit Q8H SQ 03/04/18 09:00 04/03/18 08:59 Future Hold 03/12/18 17:15 5,000 UNIT Heparin Sodium (Porcine) (Heparin 10 Unit/ ml 5 ml Flush) 5 ml PRN PRN FLUSH 03/05/18 23:45 04/04/18 23:44 Enteral Nutritional Formula (Novasource Renal) 1,000 ml UD PRN OG 03/06/18 08:45 04/05/18 08:44 Future Hold 03/10/18 19:10 1,000 ML Docusate Sodium (coLACE SYRUP) 100 mg BID PO 03/06/18 12:00 04/05/18 11:59 03/13/18 08:25 100 MG Caspofungin 50 mg/ Sodium Chloride 110 ml @ 110 mls/hr DAILY@0900 IV 03/08/18 09:00 03/19/18 09:59 03/13/18 08:24 110 MLS/HR Insulin Aspart (novoLOG ASPART) SLIDING SCALE G... Q4 SC 03/07/18 16:00 04/06/18 15:59 03/12/18 11:40 3 UNITS Diazepam (Valium Tab) 15 mg QID PO 03/08/18 13:00 04/07/18 12:59 Future Hold 03/12/18 12:48 10 MG Propranolol HCl (Inderal Tab) 10 mg QID PO 03/09/18 09:00 04/08/18 08:59 Future Hold 03/11/18 17:18 10 MG Senna (Senokot Syrup) 17.6 mg BID PO 03/09/18 09:00 04/08/18 08:59 03/13/18 08:26 17.6 MG Aspirin (Aspirin Chew) 81 mg QAM PO 03/09/18 09:00 04/08/18 08:59 Future Hold 03/11/18 07:55 81 MG Clonidine HCl (Catapres Tab) 0.1 mg TID PO 03/09/18 09:00 04/08/18 08:59 03/13/18 08:25 0.1 MG Oxycodone HCl (Roxicodone Intensol Soln) 20 mg Q6 PO 03/09/18 14:00 03/23/18 13:59 Future Hold 03/12/18 11:42 20 MG Fentanyl Citrate 250 ml @ 0 mls/hr Q0M PRN IV 03/10/18 16:00 03/24/18 15:59 03/12/18 16:57 10 MLS/HR Fentanyl Citrate (Fentanyl Inj) 50 mcg Q2H PRN IV 03/10/18 16:15 03/24/18 16:14 03/11/18 12:23 50 MCG Propofol (Diprivan Iv Emulsion 100ml Vial) 1 dose UD PRN IV 03/11/18 07:50 03/14/18 07:49 03/13/18 06:20 1 DOSE Insulin Glargine (Lantus Solostar Pen) BID@0800,2000 SC 03/11/18 20:00 04/10/18 19:59 03/12/18 08:35 4 UNITS Cisatracurium Besylate 40 mg/ Sodium Chloride 100 ml @ 0 mls/hr Q0M PRN IV 03/12/18 16:45 04/11/18 16:44 03/13/18 00:31 10 MLS/HR Methylprednisolone Sodium Succinate 20 mg/Syringe 0.32 ml @ 1.5 mls/min Q8 IV 03/13/18 14:00 04/08/18 13:59 Vital Signs: Date Time Temp Pulse Resp B/P (MAP) Pulse Ox O2 Delivery O2 Flow Rate FiO2 03/13/18 11:16 30 03/13/18 10:07 30 03/13/18 08:00 Mechanical Ventilator 40 03/13/18 07:05 30 03/13/18 06:00 103 16 152/116 (128) 03/13/18 05:00 105 16 156/97 (116) 03/13/18 04:22 30 03/13/18 04:22 93 Mechanical Ventilator 30 03/13/18 04:20 30 03/13/18 04:00 37.7 103 16 165/105 (125) 91 03/13/18 03:00 106 16 164/109 (127) 91 03/13/18 02:00 103 16 173/103 (126) 90 03/13/18 01:28 30 03/13/18 01:05 105 20 174/112 (132) 89 03/13/18 00:00 30 03/13/18 00:00 36.8 101 16 152/98 (116) 92 03/13/18 00:00 93 Mechanical Ventilator 30 03/12/18 23:00 102 16 148/97 (114) 91 03/12/18 22:09 30 03/12/18 22:01 100 16 142/90 (107) 92 03/12/18 22:00 100 16 91 03/12/18 21:00 100 16 146/93 (110) 90 03/12/18 20:30 106 17 145/89 (107) 92 03/12/18 20:28 105 16 150/94 (112) 92 03/12/18 20:00 36.8 103 16 150/97 (114) 03/12/18 20:00 93 Mechanical Ventilator 30 03/12/18 20:00 30 18 19:30 108 16 153/101 (118) 91 18 19:20 30 03/12/18 19:00 105 16 149/87 (107) 91 18 18:15 103 16 142/91 (108) 91 03/12/18 18:00 106 17 139/89 (106) 91 Mechanical Ventilator 30 03/12/18 17:45 104 17 135/86 (102) 91 Mechanical Ventilator 30 03/12/18 17:43 105 16 149/87 (107) 91 Mechanical Ventilator 30 03/12/18 17:30 107 18 140/96 (111) 89 Mechanical Ventilator 30 18 17:27 30 18 17:15 105 19 126/81 (96) 89 Mechanical Ventilator 30 03/12/18 17:00 36.7 108 18 133/97 (109) 89 Mechanical Ventilator 30 03/12/18 16:00 100 17 101/83 (89) 87 Mechanical Ventilator 30 03/12/18 16:00 91 Mechanical Ventilator 30 03/12/18 16:00 30 03/12/18 15:48 30 03/12/18 15:00 101 19 106/83 (91) 89 Mechanical Ventilator 30 03/12/18 14:05 30 03/12/18 14:00 90 0 97/71 (80) 88 Mechanical Ventilator 30 03/12/18 13:00 95 16 132/86 (101) 90 Mechanical Ventilator 30 03/12/18 12:00 91 Mechanical Ventilator 30 03/12/18 12:00 37.6 106 15 120/82 (95) 91 Mechanical Ventilator 30 03/12/18 12:00 30 Laboratory Results: Last 24 Hours Test 03/12/18 11:32 03/12/18 16:35 03/12/18 20:22 03/13/18 00:28 Bedside Glucose 144 mg/dl 133 mg/dl 122 mg/dl 113 mg/dl Test 03/13/18 04:35 03/13/18 05:41 03/13/18 06:00 03/13/18 07:01 Bedside Glucose 141 mg/dl White Blood Count 14.97 K/uL Red Blood Count 3.84 M/uL Hemoglobin 12.3 g/dL Hematocrit 36.7 % Mean Corpuscular Volume 95.6 fL Mean Corpuscular Hemoglobin 32.0 pg Mean Corpuscular Hemoglobin Concent 33.5 g/dl Platelet Count 169 K/uL Mean Platelet Volume 9.8 fL Neutrophils (%) (Auto) 77.4 % Lymphocytes (%) (Auto) 13.8 % Monocytes (%) (Auto) 7.3 % Eosinophils (%) (Auto) 0.0 % Basophils (%) (Auto) 0.2 % Neutrophils # (Auto) 11.59 K/uL Lymphocytes # (Auto) 2.06 K/uL Monocytes # (Auto) 1.09 K/uL Eosinophils # (Auto) 0.00 K/uL Basophils # (Auto) 0.03 K/uL RDW Standard Deviation 46.7 fL RDW Coefficient of Variation 13.6 % Immature Granulocyte % (Auto) 1.3 % Immature Granulocyte # (Auto) 0.20 K/uL Nucleated RBC Absolute Count (auto) 0.02 K/uL Nucleated Red Blood Cells % 0.2 % Hypersegmented Polys 1+ Sodium Level 140 mmol/L Potassium Level 3.8 mmol/L Chloride Level 104 mmol/L Carbon Dioxide Level 32 mmol/L Anion Gap 4.0 mmol/L Blood Urea Nitrogen 42 mg/dl Creatinine 1.22 mg/dl Est Creatinine Clear Calc Drug Dose 78.5 ml/min Estimated GFR () 78.0 Estimated GFR (Non- 67.3 BUN/Creatinine Ratio 34.6 Random Glucose 136 mg/dl Calcium Level 8.8 mg/dl Phosphorus Level 3.9 mg/dl Magnesium Level 2.1 mg/dl Total Bilirubin 0.8 mg/dl Direct Bilirubin 0.2 mg/dl Aspartate Amino Transf (AST/SGOT) 37 U/L Alanine Aminotransferase (ALT/SGPT) 81 U/L Alkaline Phosphatase 80 U/L Total Protein 6.9 gm/dl Albumin 3.1 gm/dl Procalcitonin 0.18 ng/ml Blood Gas Sample Site R Radial Bedside Blood Gas pH (LAB) 7.40 Bedside Blood Gas pCO2 (LAB) 51 mmHg Bedside Blood Gas pO2 (LAB) 79 mmHg Bedside Blood Gas HCO3 (LAB) 31 meq/L Bedside Blood Gas Total CO2 33 mEq/l Bedside Blood Gas Base Excess (LAB) 7.0 meq/L Bedside Blood Gas O2 Saturation 95.0 % [place] Test Pass Oxygen Delivery Device Ventilator Bedside Oxygen Rate (breaths/min) 16 Blood Gas Minute Ventilation 6.4 Bedside FiO2 30 % Blood Gas Tidal Volume 400 Blood Gas PEEP 10 Test 03/13/18 07:34 Bedside Glucose 125 mg/dl
--- NOTE | 2018-03-13 17:16 | Procedure Note ---
Procedure Note Date of Service Mar 13, 2018. Procedure Note Procedure date: 03/13/18 Procedure: fiberoptic bronchoscopy Pre-procedure Diagnosis: Respiratory failure, elective percutaneous tracheostomy Post-procedure Diagnosis: same as above Prior to Procedure: Informed Consent: The risks, benefits, indications, potential complications, and alternatives were explained to the patient/family and informed consent obtained. Attending Staff: Ksenia London DO Skin Prep: Not applicable Anesthesia: Continuos Propofol infusion, fentanyl Indications: Patient undergoing elective percutaneous tracheostomy for failure to wean. The identity of the patient was confirmed and a bedside time out was performed. Description of Procedure: Fiberoptic bronchoscopy was performed via endotracheal tube. Under direct bronchoscopic visualization the needle was noted to enter the trachea in the midline. The serial dilators were passed over the guidewire under direct visualization. After placement of the tracheostomy tube the bronchoscope was passed through the tracheostomy tube, the trachea was directly visualized there was no bleeding distal to the tracheostomy noted. Complications: None Specimens: None Estimated blood loss: Zero
[2018-03-13] MEDS: NOVASOURCE RENAL 1000ML BAG OG PRN (17:19)
[2018-03-13] MEDS: PRAVASTATIN SOD 40 MG TAB PO SCH (21:27)
[2018-03-14] VITALS (13 sets, daily range): BP systolic 85–118; BP diastolic 58–90; PULSE 71–113; TEMP 36.6–37.1; O2SAT 90–100
[2018-03-14] MEDS: TRIMETH IV SCH ×4 (00:03→23:37)
[2018-03-14] MEDS: DEXTROSE 5% IV SCH ×4 (00:03→23:37)
[2018-03-14] MEDS: SULFA IV SCH ×4 (00:03→23:37)
[2018-03-14] MEDS: HEPARIN SOD 5000 UNIT/0.5 ML CARP SQ SCH ×2 (00:18→15:56)
[2018-03-14] MEDS: PROPOFOL IV EMULSION 10 MG/ML 100 ML VIAL IV PRN ×4 (03:23→20:38)
[2018-03-14] MEDS: INSULIN ASPART 100 UNITS/ML 3 ML PEN SC SCH ×6 (04:00→20:00)
[2018-03-14 04:12] LABS: HEMATOCRIT 33.4 % (42-52); HEMOGLOBIN 11.1 g/dL (14.0-18.0); MEAN CELL VOLUME 94.6 fL (80-100); MEAN CORPUSCULAR HEMOGLOBIN 31.4 pg (25-34); MEAN CORPUSCULAR HGB CONC 33.2 g/dl (32-36); MEAN PLATELET VOLUME 9.6 fL (7.4-10.4); NUCLEATED RED BLOOD CELL ABS 0.02 K/uL (0-0); PLATELET COUNT 150 K/uL (130-400); RED CELL DISTRIBUTION WIDTH CV 13.9 % (11.5-14.5); RED CELL DISTRIBUTION WIDTH SD 47.6 fL (36.4-46.3); WHITE BLOOD COUNT 14.55 K/uL (4.8-10.8)
[2018-03-14 04:45] LABS: ALBUMIN 2.7 gm/dl (3.4-5.0); CALCIUM 8.3 mg/dl (8.5-10.1); CREATININE 1.14 mg/dl (0.60-1.40); PHOSPHORUS 2.7 mg/dl (2.5-4.9); POTASSIUM 3.5 mmol/L (3.5-5.1); TOTAL PROTEIN 6.2 gm/dl (6.4-8.2)
[2018-03-14] MEDS ORDERED: POTASSIUM CHLR 20 MEQ / WTR 20 MEQ IV STA (05:55)
[2018-03-14] MEDS ORDERED: POTASSIUM PHOS 3 MMOL/1 ML INFUSION IV STA (05:55)
[2018-03-14] MEDS: METHYLPREDNISOLONE IV 20 MG in SYRINGE 0 ML IV SCH ×3 (06:10→21:41)
--- NOTE | 2018-03-14 06:57 | DIAGNOSTIC IMAGING REPORT ---
CHEST ONE VIEW PORTABLE CLINICAL HISTORY: Respiratory Failure COMPARISON STUDY: 03/13/2018 FINDINGS: A tracheostomy tube and nasogastric tube are again visualized. There is a pronounced scoliosis. There are underlying rib deformities. There are interstitial pulmonary opacities right greater than left, similar to the preceding study. There is been apparent interval removal of the right internal jugular central venous catheter.[ IMPRESSION: Apparent interval removal of the right internal jugular central venous catheter. Otherwise stable findings with bilateral interstitial pulmonary opacities right greater than left. Electronically signed by: Isma London M.D. 03/14/2018 6:56 AM Dictated Date/Time: 03/14/2018 6:54 AM
[2018-03-14] MEDS: IPRATROPIUM BROMIDE HFA INHALER INH SCH ×4 (07:14→20:00)
[2018-03-14] MEDS: LEValbuterol HFA 15GM INHALER INH SCH ×4 (07:14→20:00)
[2018-03-14] MEDS: POTASSIUM CHLR 10 MEQ / WTR 100 ML IV SCH ×4 (07:40→10:47)
[2018-03-14] MEDS: INSULIN GLARGINE SOLOSTAR 100 UNITS/ML 3 ML PEN SC SCH ×2 (07:50→20:00)
[2018-03-14] MEDS ORDERED: POTASSIUM CHLR 20 MEQ / WTR 20 MEQ IV ONE (08:00)
[2018-03-14] MEDS: GABAPENTIN 100 MG CAP PO SCH ×2 (08:37→21:42)
[2018-03-14] MEDS: PAROXETINE 20 MG TAB PO SCH (08:37)
[2018-03-14] MEDS: DOCUSATE SODIUM 100 MG/10 ML UDC PO SCH ×2 (08:37→21:41)
[2018-03-14] MEDS: CLONIDINE HCL 0.1 MG TAB PO SCH ×3 (08:37→23:11)
[2018-03-14] MEDS: CASPOFUNGIN INJ 50 MG in SODIUM CHLORIDE 0.9% 100ML 100 ML IV SCH ×2 (08:40→10:49)
[2018-03-14] MEDS: SENNA 8.8 MG/5 ML UDP PO SCH (08:47)
[2018-03-14] MEDS ORDERED: AZITHROMYCIN 250 MG / D5W 250 ML IV ONE ×2 (09:00)
--- NOTE | 2018-03-14 09:02 | SURGERY PROGRESS NOTE ---
DATE: 03/14/2018 The patient was seen today and appears to be much more comfortable with a tracheostomy. We had very little in the way of bleeding. He had no bleeding from the incision itself and had scant bloody secretions. His lungs sound better. He looks more comfortable. I am hoping that this tracheostomy will facilitate his weaning.
[2018-03-14] MEDS ORDERED: METHYLNALTREXONE BROMIDE INJ 12 MG/0.6 ML SYR SQ ONE (10:00)
[2018-03-14] MEDS: PANTOprazole INJ 40 MG in SYRINGE 0 ML IV SCH (10:47)
--- NOTE | 2018-03-14 11:03 | Critical Care Progress Note ---
Critical Care Progress Note Date of Service Mar 14, 2018. ICU Day ICU Day Number: [address] London Subjective No overnight events Objective VITAL SIGNS - Vital signs and nursing notes were reviewed. GENERAL - 52-year-old male appearing his stated age. Intubated and sedated. Awakens and agitates easily. SKIN - Multiple areas of ecchymosis noted throughout. HEAD - NC/AT. EYES - Dilated pupils bilaterally. MOUTH/OROPHARYNX -tracheostomy tube present NECK - RIGHT IJ Central Venous Catheter has been removed LUNGS - Chest wall symmetric without accessory muscle use, intercostals retractions, or central cyanosis. Coarse breath sounds bilaterally more pronounced on left side vs right CARDIAC - RRR with S1/S2. No murmur, rubs, or gallops appreciated. ABDOMEN - Abdominal contour protuberant without pulsations or visible masses. BS normoactive all four quadrants. : Campa catheter in place EXTREMITIES - No clubbing or peripheral cyanosis. No pretibial edema present. NEUROLOGIC - RASS -3; Assessment & Plan Reason Critically Ill: Mr. Winchester is a 52-year-old male with a history of asthma & COPD who was admitted to the ICU for acute on chronic respiratory failure with noted hypoxia and respiratory distress. He was unable to tolerate BiPAP. 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 Mr. Winchester has been difficult to wean off of his sedatives, and his respiratory status has remained unchanged since yesterday. He may benefit from placement of a trach if, by Tuesday, he has not made much progress. Neuro - * Sedation: Versed: Discontinued * Valium discontinued * Currently on propofol: 30 mg/h * Pain: Fentanyl gtt at 50mcg/hr. * Scheduled oxycodone discontinued Clonidine 0.1 mg decreased to twice daily Propranolol 10 mg discontinued * Chronic Pain: * Gabapentin * Depression: * Paxil After PEG placement will decrease sedatives and pain medications while observing for withdrawal symptoms Cardiac - * Continue home statin and ASA * ECHO showed EF = 65-70% w/grade 1 diastolic dysfunction. No wall motion abnormalities. Respiratory - * Hypersensitivity Pneumonitis/ARDS: * Currently intubated and requiring mechanical ventilation. * Appreciate pulmonary consult for ventilator management. * Methylprednisolone 20 mg: Will require long wean * Inhalers scheduled. * Decrease ventilator requirements moving towards trach trials GI - * Tube Feeds: * On hold for procedure * GERD - Protonix * Bowel regimen: Continue Dulcolax and milk of mag, additional dose of methylnaltrexone today * Continue q72hr LFT checks 10/28 Caspofungin use. RENAL/LYTES - * Creatinine improved * Continue to follow lytes - replace appropriately. * No indication for dialysis, will maintain euvolemic at this time. * No additional diuretics today - * Campa in place. * Strict I&Os ENDO - * Requiring Lantus coverage. * Anticipate improvement as steroid taper decreases. HEME - * Stable H&H. ID - * Suspected PJP: * Continue course of Bactrim, day 8 of 14 of effective therapy * Fungal oral secretions w/ c/o pna: * Caspofungin day 9 LINES/IV ACCESS - * PIVs endurance peripheral IV placed 03/13 * Campa Catheter DVT PROPHYLAXIS - * sq Heparin q8h * Held this morning dose in anticipation of procedure today I have personally spent 40 minutes of critical care time in the direct management of this patient. This is a life/limb threatening event. This includes time spent evaluating patient, direct bedside care, chart review, placing orders, interpretation of diagnostic studies, discussion with consultants, patient, and family members, as well as other required patient management activities. This time is exclusive of all separately billable procedures, and teaching time and separate from and in addition to any other critical care service time. Consults & Procedures Consultants: ID Pulm Nephrology Vascular surgery Procedures: RIGHT IJ CVL discontinued March 13 Bronchoscopy Arterial Line, D/Cd Percutaneous tracheostomy March 13, 2018 Data Medications: Current Inpatient Medications Medications (Trade) Dose Ordered Sig/Nemo Route Start Time Stop Time Status Last Admin Dose Admin Gabapentin (Neurontin Cap) 100 mg BID PO 03/02/18 09:00 04/01/18 08:59 03/14/18 08:37 100 MG Paroxetine HCl (pAXil TAB) 40 mg DAILY PO 03/02/18 09:00 04/01/18 08:59 03/14/18 08:37 40 MG Pravastatin Sodium (Pravachol Tab) 40 mg HS PO 03/02/18 21:00 04/01/18 20:59 03/13/18 21:27 40 MG Ranitidine HCl (zANTac TAB) 300 mg BID PO 03/02/18 09:00 04/01/18 08:59 Future Hold 03/02/18 20:40 300 MG Levalbuterol (Xopenex 0.63 Mg/ 3 Ml Neb) 0.63 mg Q4H PRN INH 03/01/18 23:15 03/31/18 23:14 03/02/18 01:58 0.63 MG Acetaminophen (Tylenol Tab) 1,000 mg Q8H PRN PO 03/01/18 23:45 03/31/18 23:44 Glucose (Glucose 40% Gel) 15-30 GRAMS 15 GRAMS... UD PRN PO 03/02/18 12:45 04/01/18 12:44 Glucose (Glucose Chew Tab) 4-8 Tablets 4 Tabl... UD PRN PO 03/02/18 12:45 04/01/18 12:44 Dextrose (Dextrose 50% 50ML Syringe) 25-50ML 25ML FOR ... UD PRN IV 03/02/18 12:45 04/01/18 12:44 03/10/18 11:08 25 ML Glucagon (Glucagon Inj) 1 mg UD PRN IM 03/02/18 12:45 04/01/18 12:44 Carbohydrates (Carbohydrates For Hypoglycemia) 15-30 GRAMS 15 grams if BSG 54-69... UD PRN PO 03/02/18 12:45 04/01/18 12:44 Miscellaneous Information (Consult Glycemic Management Pharmacy) 1 ea UD PRN N/A 03/02/18 12:45 04/01/18 12:44 Ondansetron HCl (Zofran Inj) 4 mg Q6H PRN IV 03/02/18 23:45 04/01/18 23:44 Pantoprazole Sodium 40 mg/ Syringe 10 ml @ 5 mls/min DAILY@1100 IV 03/03/18 03:30 04/02/18 03:29 03/13/18 14:17 5 MLS/MIN Ipratropium [place] (Atrovent Hfa Inhaler) 4 puffs QIDR INH 03/03/18 08:00 04/02/18 07:59 03/14/18 07:14 4 PUFFS Levalbuterol (Xopenex Hfa Inhaler) 4 puffs QIDR INH 03/03/18 08:00 04/02/18 07:59 03/14/18 07:14 4 PUFFS Heparin Sodium (Porcine) (Heparin Sq 5000 Unit/0.5ml) 5,000 unit Q8H SQ 03/04/18 09:00 04/03/18 08:59 Future Hold 03/12/18 17:15 5,000 UNIT Heparin Sodium (Porcine) (Heparin 10 Unit/ ml 5 ml Flush) 5 ml PRN PRN FLUSH 03/05/18 23:45 04/04/18 23:44 Enteral Nutritional Formula (Novasource Renal) 1,000 ml UD PRN OG 03/06/18 08:45 04/05/18 08:44 Future Hold 03/13/18 17:19 1,000 ML Docusate Sodium (coLACE SYRUP) 100 mg BID PO 03/06/18 12:00 04/05/18 11:59 03/14/18 08:37 100 MG Caspofungin 50 mg/ Sodium Chloride 110 ml @ 110 mls/hr DAILY@0900 IV 03/08/18 09:00 03/19/18 09:59 03/13/18 08:24 110 MLS/HR Insulin Aspart (novoLOG ASPART) SLIDING SCALE G... Q4 SC 03/07/18 16:00 04/06/18 15:59 03/12/18 11:40 3 UNITS Diazepam (Valium Tab) 15 mg QID PO 03/08/18 13:00 04/07/18 12:59 Future Hold 03/12/18 12:48 10 MG Senna (Senokot Syrup) 17.6 mg BID PO 03/09/18 09:00 04/08/18 08:59 03/14/18 08:47 17.6 MG Aspirin (Aspirin Chew) 81 mg QAM PO 03/09/18 09:00 04/08/18 08:59 Future hold 03/11/18 07:55 81 MG Oxycodone HCl (Roxicodone Intensol Soln) 20 mg Q6 PO 03/09/18 14:00 03/23/18 13:59 Future Hold 03/12/18 11:42 20 MG Fentanyl Citrate 250 ml @ 0 mls/hr Q0M PRN IV 03/10/18 16:00 03/24/18 15:59 03/13/18 15:43 10 MLS/HR Fentanyl Citrate (Fentanyl Inj) 50 mcg Q2H PRN IV 03/10/18 16:15 03/24/18 16:14 03/11/18 12:23 50 MCG Propofol (Diprivan Iv Emulsion 100ml Vial) 1 dose UD PRN IV 03/11/18 07:50 03/14/18 21:00 03/14/18 07:25 1 DOSE Insulin Glargine (Lantus Solostar Pen) BID@0800,2000 SC 03/11/18 20:00 04/10/18 19:59 03/12/18 08:35 4 UNITS Methylprednisolone Sodium Succinate 20 mg/Syringe 0.32 ml @ 1.5 mls/min Q8 IV 03/13/18 14:00 04/08/18 13:59 03/14/18 06:10 1.5 MLS/MIN Trimethoprim/ Sulfamethoxazole 448 mg/Dextrose 528 ml @ 333 mls/hr Q8H IV 03/13/18 16:00 03/20/18 15:59 03/14/18 07:42 333 MLS/HR Potassium Chloride 100 ml @ 100 mls/hr TODAY@0700,0800 IV 03/14/18 07:00 03/14/18 12:00 03/14/18 08:37 100 MLS/HR Azithromycin 250 mg/Dextrose 252.5 ml @ 126.25 mls/ hr ONE ONCE IV 03/14/18 09:00 03/14/18 10:59 03/14/18 08:36 126.25 MLS/HR Clonidine HCl (Catapres Tab) 0.1 mg BID PO 03/14/18 21:00 04/13/18 20:59 Aspirin (Aspirin Chew) 81 mg TODAY@1600 ONCE PO 03/14/18 16:00 03/14/18 16:01 Potassium Chloride 100 ml @ 100 mls/hr TODAY@1000,1100 IV 03/14/18 10:00 03/14/18 11:59 03/14/18 10:22 100 MLS/HR Vital Signs: Date Time Temp Pulse Resp B/P (MAP) Pulse Ox O2 Delivery O2 Flow Rate FiO2 03/14/18 08:41 30 03/14/18 08:00 Mechanical Ventilator 30 03/14/18 08:00 30 03/14/18 07:14 30 6/19/18 06:00 80 16 85/58 (67) 94 Mechanical Ventilator 30 6/19/18 05:31 30 6/19/18 04:00 92 Mechanical Ventilator 30 6/19/18 04:00 36.9 82 16 95/64 (74) 92 Mechanical Ventilator 30 6/19/18 04:00 30 6/19/18 02:36 30 6/19/18 02:00 90 16 103/61 (75) 91 Mechanical Ventilator 30 619/18 00:01 37.1 101 16 118/90 (99) 90 Mechanical Ventilator 30 6/18/18 23:59 90 Mechanical Ventilator 30 6/18/18 23:59 30 6/18/18 22:55 30 6/18/18 22:00 93 16 98/70 (79) 90 Mechanical Ventilator 30 6/18/18 20:00 37.0 90 16 119/75 (90) 92 Mechanical Ventilator 30 6/18/18 20:00 30 6/18/18 20:00 92 Mechanical Ventilator 30 6/18/18 19:58 30 6/18/18 18:00 86 16 93/64 (74) 91 6/18/18 17:30 30 6/18/18 17:30 88 16 95/60 (72) 92 6/18/18 17:00 90 16 89/62 (71) 92 6/18/18 16:34 92 Mechanical Ventilator 40 6/18/18 16:30 93 16 94/64 (74) 92 6/18/18 16:26 95 16 97/67 (77) 92 6/18/18 16:00 30 6/18/18 16:00 100 16 93 6/18/18 15:53 30 6/18/18 15:02 108 17 123/89 (100) 93 6/18/18 15:00 108 16 89 6/18/18 14:45 105 14 108/85 (93) 94 Mechanical Ventilator 30 6/18/18 14:30 94 16 108/72 (84) 92 Mechanical Ventilator 30 6/18/18 14:25 100 6/18/18 14:22 98 16 122/74 (90) 95 Mechanical Ventilator 30 6/18/18 14:20 97 0 122/74 (90) 95 Mechanical Ventilator 30 6/18/18 14:15 102 0 106/77 (87) 97 Mechanical Ventilator 30 6/18/18 14:10 104 0 117/85 (96) 97 Mechanical Ventilator 30 03/13/18 14:05 100 0 113/85 (94) 97 Mechanical Ventilator 30 03/13/18 14:00 98 0 122/87 (99) 97 Mechanical Ventilator 30 03/13/18 13:00 100 16 110/75 (87) 90 Mechanical Ventilator 30 03/13/18 12:00 92 Mechanical Ventilator 40 03/13/18 12:00 37.8 106 16 123/78 (93) 91 Mechanical Ventilator 30 03/13/18 12:00 30 03/13/18 11:16 30 03/13/18 11:00 114 18 151/104 (120) 89 Mechanical Ventilator 30 Laboratory Results: Last 24 Hours Test 03/13/18 12:32 03/13/18 16:08 03/13/18 20:27 03/14/18 00:15 Bedside Glucose 130 mg/dl 114 mg/dl 105 mg/dl 158 mg/dl Test 03/14/18 04:03 03/14/18 04:06 03/14/18 06:03 03/14/18 07:49 White Blood Count 14.55 K/uL Red Blood Count 3.53 M/uL Hemoglobin 11.1 g/dL Hematocrit 33.4 % Mean Corpuscular Volume 94.6 fL Mean Corpuscular Hemoglobin 31.4 pg Mean Corpuscular Hemoglobin Concent 33.2 g/dl RDW Standard Deviation 47.6 fL RDW Coefficient of Variation 13.9 % Platelet Count 150 K/uL Mean Platelet Volume 9.6 fL Nucleated RBC Absolute Count (auto) 0.02 K/uL Nucleated Red Blood Cells % 0.1 % Sodium Level 139 mmol/L Potassium Level 3.5 mmol/L Chloride Level 104 mmol/L Carbon Dioxide Level 28 mmol/L Anion Gap 7.0 mmol/L Blood Urea Nitrogen 31 mg/dl Creatinine 1.14 mg/dl Est Creatinine Clear Calc Drug Dose 84.0 ml/min Estimated GFR () 84.6 Estimated GFR (Non- 73.0 BUN/Creatinine Ratio 27.5 Random Glucose 143 mg/dl Calcium Level 8.3 mg/dl Phosphorus Level 2.7 mg/dl Magnesium Level 2.1 mg/dl Total Bilirubin 0.5 mg/dl Aspartate Amino Transf (AST/SGOT) 28 U/L Alanine Aminotransferase (ALT/SGPT) 71 U/L Alkaline Phosphatase 71 U/L Lactate Dehydrogenase 538 U/L Total Protein 6.2 gm/dl Albumin 2.7 gm/dl Globulin 3.5 gm/dl Albumin/Globulin Ratio 0.8 Bedside Glucose 136 mg/dl 97 mg/dl Blood Gas Sample Site R Radial Bedside Blood Gas pH (LAB) 7.44 Bedside Blood Gas pCO2 (LAB) 45 mmHg Bedside Blood Gas pO2 (LAB) 82 mmHg Bedside Blood Gas HCO3 (LAB) 30 meq/L Bedside Blood Gas Total CO2 31 mEq/l Bedside Blood Gas Base Excess (LAB) 6.0 meq/L Bedside Blood Gas O2 Saturation 96.0 % [place] Test Pass Oxygen Delivery Device Ventilator Bedside Oxygen Rate (breaths/min) 16 Blood Gas Minute Ventilation 6.4 Bedside FiO2 30 % Blood Gas Tidal Volume 400 Blood Gas PEEP 10 Test 03/14/18 09:33
--- NOTE | 2018-03-14 11:42 | History & Physical Bridge Note ---
H&P Re-Evaluation Bridge Note: I have examined the patient, reviewed the History & Physical and in the interval since the performance of the History & Physical I have noted the following changes of clinical significance: No changes noted. Feeding tube requested due to an expected long-term recovery. Consent was obtained from the patient's spouse. We have discussed the risks to include bleeding, infection, perforation, pain and need for follow-up studies.
--- NOTE | 2018-03-14 12:12 | Pre Sedation Assessment ---
Pre Sedation Assessment General Date of Sedation: Mar 14, 2018. Vital Signs Past 12 Hours Date Time Temp Pulse Resp B/P (MAP) Pulse Ox O2 Delivery O2 Flow Rate FiO2 03/14/18 12:00 30 03/14/18 12:00 Mechanical Ventilator 30 03/14/18 12:00 36.6 113 16 103/66 (78) 94 Mechanical Ventilator 30 03/14/18 11:54 91 13 108/83 (91) 93 Mechanical Ventilator 2 03/14/18 11:33 30 03/14/18 10:00 87 16 108/83 (91) 97 Mechanical Ventilator 30 03/14/18 08:41 30 03/14/18 08:00 36.6 87 16 105/77 (86) Mechanical Ventilator 30 03/14/18 08:00 Mechanical Ventilator 30 03/14/18 08:00 30 03/14/18 07:14 30 03/14/18 06:00 80 16 85/58 (67) 94 Mechanical Ventilator 30 03/14/18 05:31 30 03/14/18 04:00 92 Mechanical Ventilator 30 03/14/18 04:00 36.9 82 16 95/64 (74) 92 Mechanical Ventilator 30 03/14/18 04:00 30 03/14/18 02:36 30 03/14/18 02:00 90 16 103/61 (75) 91 Mechanical Ventilator 30 Review Cardiovascular: no gallop, no JVD, no murmur, + tachycardia Lungs: no respiratory distress, no accessory muscle use, + rhonchi Pre-Sedation Airway Assessment Smoking Status: Current Every Day Smoker Oral Cavity: Dentures Mallampati Classification: Class III ASA Classification: Class IV NPO Status Date of Last Intake of Fluids: Mar 13, 2018 Time of Last Intake of Fluids: 23:59 Date of Last Intake of Solids: Mar 13, 2018 Time of Last Intake of Solids: 23:59 Procedure Planning Contraindications for Sedation: None Current Medications Reviewed: Yes Notes Patient with secure airway via tracheostomy, already receiving sedation for facilitation of mechanical ventilation. The planned sedation has been discussed with the patient. Informed Consent was obtained. I have identified the patient, determined the appropriateness of sedation and have assessed the patient immediately prior to the procedure. All medicine(s) and interventions are by my order.
--- NOTE | 2018-03-14 12:40 | GI REPORT ---
Patient Name: Anuel Winchester Procedure Date: 03/14/2018 11:57 AM Date of : 1965 Admit Type: Inpatient Age: 52 Gender: Male Attending MD: Di Hubbard DO Procedure: Upper GI endoscopy Providers: Di Hubbard DO Referring MD: Surya Ferrari DO, Sheetal Desai Indications: Place PEG because patient is unable to eat and on ventilator support Medicines: Given by ICU attending (Dr. London) Complications: No immediate complications. Estimated blood loss: Minimal. Estimated Blood Loss: Estimated blood loss was minimal. Procedure: Pre-Anesthesia Assessment: - Prior to the procedure, a History and Physical was performed, and patient medications, allergies and sensitivities were reviewed. The patient's tolerance of previous anesthesia was reviewed. - The patient is unable to give consent secondary to the patient's altered mental status. The alternatives, risks and benefits of the procedure were discussed at length with the patient's spouse. The patient's proxy verbalized understanding of the risks as well as the alternatives and wished to proceed with the procedure. - Patient identification and proposed procedure were verified prior to the procedure by the physician and the nurse. The procedure was verified in the procedure room. - Pre-procedure physical examination revealed no contraindications to sedation. - ASA Grade Assessment: IV - A patient with severe systemic disease that is a constant threat to life. - After reviewing the risks and benefits, the patient was deemed in satisfactory condition to undergo the procedure. - - The heart rate, respiratory rate, oxygen saturations, blood pressure, adequacy of pulmonary ventilation, and response to care were monitored throughout the procedure. - The physical status of the patient was re-assessed after the procedure. After obtaining informed consent, the endoscope was passed under direct vision. Throughout the procedure, the patient's blood pressure, pulse, and oxygen saturations were monitored continuously. The scope was introduced through the mouth, and advanced to the second part of duodenum. The upper GI endoscopy was accomplished without difficulty. The patient tolerated the procedure well. Findings: The examined esophagus was normal. The entire examined stomach was normal. The patient was placed in the supine position for PEG placement. The stomach was insufflated to appose gastric and abdominal padilla. A site was located in the antrum of the stomach with excellent transillumination and manual external pressure for placement. The abdominal wall was marked and prepped in a sterile manner. The area was anesthetized with 5 mL of 0.5% lidocaine. The trocar needle was introduced through the abdominal wall and into the stomach under direct endoscopic view. A snare was introduced through the endoscope and opened in the gastric lumen. The guide wire was passed through the trocar and into the open snare. The snare was closed around the guide wire. The endoscope and snare were removed, pulling the wire out through the mouth. A skin incision was made at the site of needle insertion. The externally removable 20 Fr [employer] gastrostomy tube was lubricated. The G-tube was tied to the guide wire and pulled through the mouth and into the stomach. The trocar needle was removed, and the gastrostomy tube was pulled out from the stomach through the skin. The external bumper was attached to the gastrostomy tube, and the tube was cut to remove the guide wire. The final position of the gastrostomy tube was confirmed by relook endoscopy, and skin marking noted to be 3.5 cm at the external bumper. The final tension and compression of the abdominal wall by the PEG tube and external bumper were checked and revealed that the bumper was moderately tight and mildly deforming the skin. The feeding tube was capped, and the tube site cleaned and dressed. Estimated blood loss was minimal. The examined duodenum was normal. Impression: - Normal esophagus. - Normal stomach. - Normal examined duodenum. - An externally removable PEG placement was successfully completed. . Recommendation: - Please follow the post-PEG recommendations including: Nutrition consult for formula and volume, antibiotic ointment to site, change dressing once per day for 1 week, may use PEG today for meds and water and may use PEG tomorrow for feedings. Di Hubbard D.O. Di Hubbard DO 03/14/2018 12:39:34 PM This report has been signed electronically. Note Initiated On: 03/14/2018 11:57 AM Number of Addenda: 0 I attest to the content of the Intraoperative Record and orders documented therein, exceptions below {[id number]}
--- NOTE | 2018-03-14 13:55 | Post Sedation Assessment ---
Post Sedation Assessment General Date of Sedation Mar 14, 2018. Vital Signs: Vital Signs Past 12 Hours Date Time Temp Pulse Resp B/P (MAP) Pulse Ox O2 Delivery O2 Flow Rate FiO2 03/14/18 12:18 30 03/14/18 12:10 80 13 103/66 (78) 100 Mechanical Ventilator 2 03/14/18 12:04 71 13 89/58 (68) 96 Mechanical Ventilator 2 03/14/18 12:00 30 03/14/18 12:00 Mechanical Ventilator 30 03/14/18 12:00 36.6 113 16 103/66 (78) 94 Mechanical Ventilator 30 03/14/18 11:54 91 13 108/83 (91) 93 Mechanical Ventilator 2 03/14/18 11:33 30 03/14/18 10:00 87 16 108/83 (91) 97 Mechanical Ventilator 30 03/14/18 08:41 30 03/14/18 08:00 36.6 87 16 105/77 (86) Mechanical Ventilator 30 03/14/18 08:00 Mechanical Ventilator 30 03/14/18 08:00 Mechanical Ventilator 30 03/14/18 08:00 30 03/14/18 07:14 30 03/14/18 06:00 80 16 85/58 (67) 94 Mechanical Ventilator 30 03/14/18 05:31 30 03/14/18 04:00 92 Mechanical Ventilator 30 03/14/18 04:00 36.9 82 16 95/64 (74) 92 Mechanical Ventilator 30 03/14/18 04:00 30 03/14/18 02:36 30 03/14/18 02:00 90 16 103/61 (75) 91 Mechanical Ventilator 30 Post Procedure Recovery Score Activity: (0) Moves 0 extremities * Respiration: (2) Deep breath/cough Circulation: (2) +/-20% PreAnes Value Consciousness: (0) Nonresponsive Oxygen Saturation: (1) O2 needed for >90% Discharge Sedation Level of Care: Higher Level of Care Post Sedation Plan Procedural start time was 1155 procedural end time was 1211 total of 30 mg of propofol and 100 mcg fentanyl given via IV. Patient has secure airway and invasive monitoring in place remains in the ICU in critical, guarded condition.
--- NOTE | 2018-03-14 14:10 | Progress Note ---
Progress Note Date of Service Mar 14, 2018. Progress Note The patient underwent upper endoscopy with feeding tube placement this afternoon. The procedure was performed without any difficulty at the bedside. Recommendations May use PEG for medications and water today Flush PEG with 60 ml sterile water after all tube feeds and medication Daily dressing change May use feeding tube for attrition starting on 03/15/18
[2018-03-14] MEDS ORDERED: ROCURONIUM BROMIDE 10 MG/ML 10 ML VIAL IV ONE (15:14)
[2018-03-14] MEDS ORDERED: ASPIRIN 81 MG CHEW PO ONE (16:00)
[2018-03-14] MEDS: FENTANYL 1250MCG/250ML NSS 250 ML IV PRN (16:24)
--- NOTE | 2018-03-14 18:16 | Progress Note ---
Medicine Progress Note Date & Time of Visit: Mar 14, 2018 at 17:47. Subjective Patient sedated, snoring, was seen prior to PEG tube placement earlier this AM. at the bedside was concerned about gurggling and increased secretions. No overnight events noted. Minimal bleeding from newly placed trach. Objective Last 8 Hrs Date Time Temp Pulse Resp B/P (MAP) Pulse Ox O2 Delivery O2 Flow Rate FiO2 03/14/18 16:00 30 03/14/18 16:00 36.6 80 16 95/63 (74) 100 Mechanical Ventilator 30 03/14/18 16:00 Mechanical Ventilator 30 03/14/18 15:18 30 03/14/18 14:00 71 16 103/73 (83) 94 Mechanical Ventilator 30 03/14/18 12:18 30 03/14/18 12:10 80 13 103/66 (78) 100 Mechanical Ventilator 2 03/14/18 12:04 71 13 89/58 (68) 96 Mechanical Ventilator 2 03/14/18 12:00 30 03/14/18 12:00 Mechanical Ventilator 30 03/14/18 12:00 36.6 113 16 103/66 (78) 94 Mechanical Ventilator 30 03/14/18 11:54 91 13 108/83 (91) 93 Mechanical Ventilator 2 03/14/18 11:33 30 03/14/18 10:00 87 16 108/83 (91) 97 Mechanical Ventilator 30 Physical Exam: GENERAL: Patient is in no acute distress. Sedated, snoring, frequent apnea on CPAP HEENT: No acute trauma, normocephalic, mucous membranes moist, no nasal congestion, no scleral icterus. NECK: No stridor, trachea is midline. LUNGS: Coarse breath sounds bilaterally, no wheeze, breath sounds equal. HEART: Without murmurs gallops or rubs, regular rate and rhythm. ABDOMEN: Soft, nontender, bowel sounds positive, slightly distended EXTREMITIES: No cyanosis or edema, in restraints, sedated NEUROLOGIC: sedated SKIN: No rash, no jaundice, no diaphoresis. Laboratory Results: Last 24 Hours Test 03/13/18 20:27 03/14/18 00:15 03/14/18 04:03 03/14/18 04:06 Bedside Glucose 105 mg/dl 158 mg/dl 136 mg/dl White Blood Count 14.55 K/uL Red Blood Count 3.53 M/uL Hemoglobin 11.1 g/dL Hematocrit 33.4 % Mean Corpuscular Volume 94.6 fL Mean Corpuscular Hemoglobin 31.4 pg Mean Corpuscular Hemoglobin Concent 33.2 g/dl RDW Standard Deviation 47.6 fL RDW Coefficient of Variation 13.9 % Platelet Count 150 K/uL Mean Platelet Volume 9.6 fL Nucleated RBC Absolute Count (auto) 0.02 K/uL Nucleated Red Blood Cells % 0.1 % Sodium Level 139 mmol/L Potassium Level 3.5 mmol/L Chloride Level 104 mmol/L Carbon Dioxide Level 28 mmol/L Anion Gap 7.0 mmol/L Blood Urea Nitrogen 31 mg/dl Creatinine 1.14 mg/dl Est Creatinine Clear Calc Drug Dose 84.0 ml/min Estimated GFR () 84.6 Estimated GFR (Non- 73.0 BUN/Creatinine Ratio 27.5 Random Glucose 143 mg/dl Calcium Level 8.3 mg/dl Phosphorus Level 2.7 mg/dl Magnesium Level 2.1 mg/dl Total Bilirubin 0.5 mg/dl Aspartate Amino Transf (AST/SGOT) 28 U/L Alanine Aminotransferase (ALT/SGPT) 71 U/L Alkaline Phosphatase 71 U/L Lactate Dehydrogenase 538 U/L Total Protein 6.2 gm/dl Albumin 2.7 gm/dl Globulin 3.5 gm/dl Albumin/Globulin Ratio 0.8 Test 03/14/18 06:03 03/14/18 07:49 03/14/18 09:33 03/14/18 11:47 Blood Gas Sample Site R Radial Bedside Blood Gas pH (LAB) 7.44 Bedside Blood Gas pCO2 (LAB) 45 mmHg Bedside Blood Gas pO2 (LAB) 82 mmHg Bedside Blood Gas HCO3 (LAB) 30 meq/L Bedside Blood Gas Total CO2 31 mEq/l Bedside Blood Gas Base Excess (LAB) 6.0 meq/L Bedside Blood Gas O2 Saturation 96.0 % [place] Test Pass Oxygen Delivery Device Ventilator Bedside Oxygen Rate (breaths/min) 16 Blood Gas Minute Ventilation 6.4 Bedside FiO2 30 % Blood Gas Tidal Volume 400 Blood Gas PEEP 10 Bedside Glucose 97 mg/dl 118 mg/dl Procalcitonin 0.14 ng/ml Test 03/14/18 16:04 Bedside Glucose 96 mg/dl Assessment & Plan ACUTE ON CHRONIC RESPIRATORY FAILURE: Combined Hypoxemic and Hypercapneic -secondary to hypersensitivity pneumonitis/ARDS -failure to wean off ventilator, now s/p tracheostomy 03/13/18; on cpap this AM with frequent apneic episodes -remains on methylprednisone 20 mg IV q8 hours -on xopenex -CXR 03/13/18 AM: Bilateral pulmonary airspace opacities with slight interval improvement of left lung aeration -Pulmonary service and [employer] consulted and management appreciated -patient also underwent PEG tube placement today -[employer] planning to lighten sedation following PEG tube placement; previous attempts to wean from sedation were not tolerated, patient was very anxious and deliberately pulling at lines and tubes when he still had an ET tube. -TTE report: EF 65-70%, No segmental left ventricular wall motion abnormalities * Grade I diastolic dysfunction. * Poorly visualized RV. * No significant valvular pathology. -ASA held for procedures TOXIC ENCEPHALOPATHY/PHARMACOLOGIC SEDATION: will expect some degree of encephalopathy even once sedation is weaned off -on propofol; valium off and versed off -agitation was initially thought to be due to opioid withdrawal, and patient was on clonidine and roxicodone [employer]; his oxycodone was stopped and he remains on fentanyl IV -Head CT: No acute intracranial findings -Brain MRI: 1. No evidence of intracranial mass 2. No evidence of acute or subacute infarction 3. Foci of increased T2 signal within the mastoids likely inflammatory, otherwise normal MRI the brain for age -EEG: diagnosis is essentially normal, quite a bit of muscle movement artifacts , but revealing no evidence for potentially epileptogenic activity or ongoing subclinical seizure activity. -Neurology consulted, appreciate recs, do not suspect that there is a primary underlying seizure issue, but rather a toxic metabolic encephalopathy related to his pulmonary disease. -patient's reports that even at home at baseline, patient moves his extremities (possibly involuntary?) without purpose during his sleep and this has been going on for years but was not assessed for this issue before CHRONIC PAIN: -continue Gabapentin -IV fentanyl continued DEPRESSION: -continue Paxil MAHAD: -improving -had hyperkalemia, was responsive to medical management -Vascular and Nephrology were consulted -Bactrim had been discontinued but was restarted -Lasix changed to Diamox as fluid totals are no longer net positive and because there was metabolic alkalosis; now off both PNEUMONIA: -CXR with bilateral airspace opacities -was previously on vancomycin and azithromycin -Blood Cultures negative -karla albicans in sputum from 03/04/18, on caspofungin treatment; continued per ICU because of a lot of growth as per their discussion with pathology -BAL cultures negative, last dose of Zosyn given on 03/08/18 -urinary legionella negative, mycoplasma IgM is negative, mycoplasma IgG is equivocal, HIV negative -given LDH elevated at 538, 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; Bactrim stopped on 03/10/18 due to hyperkalemia, restarted 03/13 due to concern for possible PJP GERD: -on Pantoprazole 40mg IV daily also as GI prophylaxis -GI to do EGD and PEG tube placement NUTRITION: -pharmacy glycemic control consult involved in serum glucose management due hyperglycemia related to steroids -was on tube feeds via NG, were held for PEG tube placement Current Inpatient Medications: Current Inpatient Medications Medications (Trade) Dose Ordered Sig/Nemo Route Start Time Stop Time Status Last Admin Dose Admin Gabapentin (Neurontin Cap) 100 mg BID PO 03/02/18 09:00 04/01/18 08:59 03/14/18 08:37 100 MG Paroxetine HCl (pAXil TAB) 40 mg DAILY PO 03/02/18 09:00 04/01/18 08:59 03/14/18 08:37 40 MG Pravastatin Sodium (Pravachol Tab) 40 mg HS PO 03/02/18 21:00 04/01/18 20:59 03/13/18 21:27 40 MG Ranitidine HCl (zANTac TAB) 300 mg BID PO 03/02/18 09:00 04/01/18 08:59 Future Hold 03/02/18 20:40 300 MG Levalbuterol (Xopenex 0.63 Mg/ 3 Ml Neb) 0.63 mg Q4H PRN INH 03/01/18 23:15 03/31/18 23:14 03/02/18 01:58 0.63 MG Acetaminophen (Tylenol Tab) 1,000 mg Q8H PRN PO 03/01/18 23:45 03/31/18 23:44 Glucose (Glucose 40% Gel) 15-30 GRAMS 15 GRAMS... UD PRN PO 03/02/18 12:45 04/01/18 12:44 Glucose (Glucose Chew Tab) 4-8 Tablets 4 Tabl... UD PRN PO 03/02/18 12:45 7/7/18 12:44 Dextrose (Dextrose 50% 50ML Syringe) 25-50ML 25ML FOR ... UD PRN IV 03/02/18 12:45 04/01/18 12:44 03/10/18 11:08 25 ML Glucagon (Glucagon Inj) 1 mg UD PRN IM 03/02/18 12:45 04/01/18 12:44 Carbohydrates (Carbohydrates For Hypoglycemia) 15-30 GRAMS 15 grams if BSG 54-69... UD PRN PO 03/02/18 12:45 04/01/18 12:44 Miscellaneous Information (Consult Glycemic Management Pharmacy) 1 ea UD PRN N/A 03/02/18 12:45 04/01/18 12:44 Ondansetron HCl (Zofran Inj) 4 mg Q6H PRN IV 03/02/18 23:45 04/01/18 23:44 Pantoprazole Sodium 40 mg/ Syringe 10 ml @ 5 mls/min DAILY@1100 IV 03/03/18 03:30 04/02/18 03:29 03/14/18 10:47 5 MLS/MIN Ipratropium [place] (Atrovent Hfa Inhaler) 4 puffs QIDR INH 03/03/18 08:00 04/02/18 07:59 03/14/18 15:18 4 PUFFS Levalbuterol (Xopenex Hfa Inhaler) 4 puffs QIDR INH 03/03/18 08:00 04/02/18 07:59 03/14/18 15:18 4 PUFFS Heparin Sodium (Porcine) (Heparin 10 Unit/ ml 5 ml Flush) 5 ml PRN PRN FLUSH 03/05/18 23:45 04/04/18 23:44 Enteral Nutritional Formula (Novasource Renal) 1,000 ml UD PRN OG 03/06/18 08:45 04/05/18 08:44 Future Hold 03/13/18 17:19 1,000 ML Docusate Sodium (coLACE SYRUP) 100 mg BID PO 03/06/18 12:00 04/05/18 11:59 03/14/18 08:37 100 MG Caspofungin 50 mg/ Sodium Chloride 110 ml @ 110 mls/hr DAILY@0900 IV 03/08/18 09:00 03/19/18 09:59 03/14/18 10:49 110 MLS/HR Insulin Aspart (novoLOG ASPART) SLIDING SCALE G... Q4 SC 03/07/18 16:00 04/06/18 15:59 03/12/18 11:40 3 UNITS Diazepam (Valium Tab) 15 mg QID PO 03/08/18 13:00 04/07/18 12:59 Future Hold 03/12/18 12:48 10 MG Aspirin (Aspirin Chew) 81 mg QAM PO 03/09/18 09:00 04/08/18 08:59 Future hold 03/11/18 07:55 81 MG Oxycodone HCl (Roxicodone Intensol Soln) 20 mg Q6 PO 03/09/18 14:00 03/23/18 13:59 Future Hold 03/12/18 11:42 20 MG Fentanyl Citrate 250 ml @ 0 mls/hr Q0M PRN IV 03/10/18 16:00 03/24/18 15:59 03/14/18 16:24 10 MLS/HR Fentanyl Citrate (Fentanyl Inj) 50 mcg Q2H PRN IV 03/10/18 16:15 03/24/18 16:14 03/11/18 12:23 50 MCG Propofol (Diprivan Iv Emulsion 100ml Vial) 1 dose UD PRN IV 03/11/18 07:50 03/14/18 21:00 03/14/18 12:22 1 DOSE Insulin Glargine (Lantus Solostar Pen) BID@0800,2000 SC 03/11/18 20:00 04/10/18 19:59 03/12/18 08:35 4 UNITS Methylprednisolone Sodium Succinate 20 mg/Syringe 0.32 ml @ 1.5 mls/min Q8 IV 03/13/18 14:00 04/08/18 13:59 03/14/18 14:16 1.5 MLS/MIN Trimethoprim/ Sulfamethoxazole 448 mg/Dextrose 528 ml @ 333 mls/hr Q8H IV 03/13/18 16:00 03/20/18 15:59 03/14/18 15:55 333 MLS/HR Clonidine HCl (Catapres Tab) 0.1 mg BID PO 03/14/18 21:00 04/13/18 20:59 Senna (Senokot Syrup) 17.6 mg BID PO 03/14/18 21:00 04/08/18 08:59 Heparin Sodium (Porcine) (Heparin Sq 5000 Unit/0.5ml) 5,000 unit Q8H SQ 03/14/18 16:00 04/13/18 15:59 03/14/18 15:56 5,000 UNIT
[2018-03-14] MEDS: SENNA 17.6 MG/10 ML UDP PO SCH (21:00)
[2018-03-14] MEDS: PRAVASTATIN SOD 40 MG TAB PO SCH (21:42)
[2018-03-14] MEDS: OXYCODONE HCL SOLN 5 MG/5 ML UDC GT SCH (23:10)
[2018-03-15] VITALS (12 sets, daily range): BP systolic 92–168; BP diastolic 63–107; PULSE 74–135; TEMP 36.9–37.7; O2SAT 93–100
[2018-03-15] MEDS: HEPARIN SOD 5000 UNIT/0.5 ML CARP SQ SCH ×3 (00:05→16:15)
[2018-03-15] MEDS: PROPOFOL IV EMULSION 10 MG/ML 100 ML VIAL IV PRN ×2 (01:00→05:46)
[2018-03-15] MEDS: INSULIN ASPART 100 UNITS/ML 3 ML PEN SC SCH ×6 (04:00→19:51)
[2018-03-15] MEDS: OXYCODONE HCL SOLN 5 MG/5 ML UDC GT SCH (04:49)
[2018-03-15 05:34] LABS: CALCIUM 8.7 mg/dl (8.5-10.1); CREATININE 0.88 mg/dl (0.60-1.40); PHOSPHORUS 3.2 mg/dl (2.5-4.9)
[2018-03-15] MEDS: METHYLPREDNISOLONE IV 20 MG in SYRINGE 0 ML IV SCH (05:44)
[2018-03-15 06:03] LABS: POTASSIUM 4.1 mmol/L (3.5-5.1)
[2018-03-15] MEDS: MAGNESIUM OXIDE 400 MG TAB PEG SCH ×2 (06:36→10:08)
[2018-03-15] MEDS: IPRATROPIUM BROMIDE HFA INHALER INH SCH ×3 (07:32→11:34)
[2018-03-15] MEDS: LEValbuterol HFA 15GM INHALER INH SCH ×3 (07:32→11:34)
--- NOTE | 2018-03-15 08:05 | SURGERY PROGRESS NOTE ---
DATE: 03/15/2018 Mr. Winchester was seen today. He is afebrile over the last 24 hours. He is on 40% FiO2 which is going up, saturations are 94%. He continues to have rhonchi. His trach site is clean. His PEG tube is now placed. Hopefully, he will recover with support.
[2018-03-15] MEDS ORDERED: HYDROmorphone INJ 0.5 MG/0.5 ML SYR IV PRN (09:45)
[2018-03-15] MEDS: INSULIN GLARGINE SOLOSTAR 100 UNITS/ML 3 ML PEN SC SCH ×2 (09:53→19:49)
[2018-03-15] MEDS ORDERED: POTASSIUM CHLORIDE 20 MEQ/15 ML UDC PEG ONE (10:00)
[2018-03-15] MEDS ORDERED: FUROSEMIDE 20 MG TAB PEG ONE (10:00)
[2018-03-15] MEDS ORDERED: SORBITOL 70% 30ML UDC PO ONE (10:00)
[2018-03-15] MEDS: SENNA 17.6 MG/10 ML UDP PO SCH ×2 (10:04→20:47)
[2018-03-15] MEDS: CLONIDINE HCL 0.1 MG TAB PO SCH ×2 (10:05→20:47)
[2018-03-15] MEDS: GABAPENTIN 100 MG CAP PO SCH ×2 (10:05→20:46)
[2018-03-15] MEDS: PAROXETINE 20 MG TAB PO SCH (10:05)
[2018-03-15] MEDS: DOCUSATE SODIUM 100 MG/10 ML UDC PO SCH ×2 (10:05→20:46)
[2018-03-15] MEDS: ASPIRIN 81 MG CHEW PO SCH (10:05)
[2018-03-15] MEDS: PANTOprazole INJ 40 MG in SYRINGE 0 ML IV SCH (10:06)
[2018-03-15] MEDS: TRIMETH IV SCH ×2 (10:06→18:12)
[2018-03-15] MEDS: CASPOFUNGIN INJ 50 MG in SODIUM CHLORIDE 0.9% 100ML 100 ML IV SCH (10:06)
[2018-03-15] MEDS: DEXTROSE 5% IV SCH ×2 (10:06→18:12)
[2018-03-15] MEDS: SULFA IV SCH ×2 (10:06→18:12)
--- NOTE | 2018-03-15 10:08 | Gastroenterology Progress Note ---
Progress Note Date of Service: Mar 15, 2018 Subjective Pt evaluation today including: conversation w/ patient, physical exam, chart review, lab review, review of studies, review of inpatient medication list Mr. Winchester is a 52 yr old female who was admitted for respiratory failure, vented. GI Placed a PEG tube yesterday. On inspection of the PEG insertion site: no bleeding, no leaking, tube able to be turned and slightly in/out w/o being too loose. Review of Systems Unable to get ROS from the pt. Medications Current Inpatient Medications Medications (Trade) Dose Ordered Sig/Nemo Route Start Time Stop Time Status Last Admin Dose Admin Gabapentin (Neurontin Cap) 100 mg BID PO 03/02/18 09:00 04/01/18 08:59 03/14/18 21:42 100 MG Paroxetine HCl (pAXil TAB) 40 mg DAILY PO 03/02/18 09:00 04/01/18 08:59 03/14/18 08:37 40 MG Pravastatin Sodium (Pravachol Tab) 40 mg HS PO 03/02/18 21:00 04/01/18 20:59 03/14/18 21:42 40 MG Ranitidine HCl (zANTac TAB) 300 mg BID PO 03/02/18 09:00 04/01/18 08:59 Future Hold 03/02/18 20:40 300 MG Levalbuterol (Xopenex 0.63 Mg/ 3 Ml Neb) 0.63 mg Q4H PRN INH 03/01/18 23:15 03/31/18 23:14 03/02/18 01:58 0.63 MG Acetaminophen (Tylenol Tab) 1,000 mg Q8H PRN PO 03/01/18 23:45 03/31/18 23:44 Glucose (Glucose 40% Gel) 15-30 GRAMS 15 GRAMS... UD PRN PO 03/02/18 12:45 04/01/18 12:44 Glucose (Glucose Chew Tab) 4-8 Tablets 4 Tabl... UD PRN PO 03/02/18 12:45 04/01/18 12:44 Dextrose (Dextrose 50% 50ML Syringe) 25-50ML 25ML FOR ... UD PRN IV 03/02/18 12:45 04/01/18 12:44 03/10/18 11:08 25 ML Glucagon (Glucagon Inj) 1 mg UD PRN IM 03/02/18 12:45 04/01/18 12:44 Carbohydrates (Carbohydrates For Hypoglycemia) 15-30 GRAMS 15 grams if BSG 54-69... UD PRN PO 03/02/18 12:45 04/01/18 12:44 Miscellaneous Information (Consult Glycemic Management Pharmacy) 1 ea UD PRN N/A 03/02/18 12:45 04/01/18 12:44 Ondansetron HCl (Zofran Inj) 4 mg Q6H PRN IV 03/02/18 23:45 04/01/18 23:44 Pantoprazole Sodium 40 mg/ Syringe 10 ml @ 5 mls/min DAILY@1100 IV 03/03/18 03:30 04/02/18 03:29 03/14/18 10:47 5 MLS/MIN Ipratropium [place] (Atrovent Hfa Inhaler) 4 puffs QIDR INH 03/03/18 08:00 04/02/18 07:59 03/15/18 07:32 4 PUFFS Levalbuterol (Xopenex Hfa Inhaler) 4 puffs QIDR INH 03/03/18 08:00 04/02/18 07:59 03/15/18 07:32 4 PUFFS Heparin Sodium (Porcine) (Heparin 10 Unit/ ml 5 ml Flush) 5 ml PRN PRN FLUSH 03/05/18 23:45 04/04/18 23:44 Enteral Nutritional Formula (Novasource Renal) 1,000 ml UD PRN OG 03/06/18 08:45 04/05/18 08:44 Future Hold 03/13/18 17:19 1,000 ML Docusate Sodium (coLACE SYRUP) 100 mg BID PO 03/06/18 12:00 04/05/18 11:59 03/14/18 21:41 100 MG Caspofungin 50 mg/ Sodium Chloride 110 ml @ 110 mls/hr DAILY@0900 IV 03/08/18 09:00 03/19/18 09:59 03/14/18 10:49 110 MLS/HR Insulin Aspart (novoLOG ASPART) SLIDING SCALE G... Q4 SC 03/07/18 16:00 04/06/18 15:59 03/12/18 11:40 3 UNITS Diazepam (Valium Tab) 15 mg QID PO 03/08/18 13:00 04/07/18 12:59 Future Hold 03/12/18 12:48 10 MG Aspirin (Aspirin Chew) 81 mg QAM PO 03/09/18 09:00 04/08/18 08:59 Future hold 03/11/18 07:55 81 MG Insulin Glargine (Lantus Solostar Pen) BID@0800,2000 SC 03/11/18 20:00 04/10/18 19:59 03/12/18 08:35 4 UNITS Methylprednisolone Sodium Succinate 20 mg/Syringe 0.32 ml @ 1.5 mls/min Q8 IV 03/13/18 14:00 03/15/18 13:59 03/15/18 05:44 1.5 MLS/MIN Trimethoprim/ Sulfamethoxazole 448 mg/Dextrose 528 ml @ 333 mls/hr Q8H IV 03/13/18 16:00 03/20/18 15:59 03/14/18 23:37 333 MLS/HR Clonidine HCl (Catapres Tab) 0.1 mg BID PO 03/14/18 21:00 04/13/18 20:59 03/14/18 23:11 0.1 MG Senna (Senokot Syrup) 17.6 mg BID PO 03/14/18 21:00 04/08/18 08:59 03/14/18 21:00 17.6 MG Heparin Sodium (Porcine) (Heparin Sq 5000 Unit/0.5ml) 5,000 unit Q8H SQ 03/14/18 16:00 04/13/18 15:59 03/15/18 00:05 5,000 UNIT Magnesium Oxide (Mag-Ox Tab) 400 mg Q4H PEG 03/15/18 06:30 03/15/18 10:31 03/15/18 06:36 400 MG Oxycodone HCl (Roxicodone Intensol Soln) 20 mg Q6H NG 03/15/18 12:00 03/29/18 11:59 Hydromorphone HCl (Dilaudid Inj) 1 mg Q4H PRN IV 03/15/18 09:45 03/29/18 09:44 Furosemide (Lasix Tab) 20 mg NOW ONCE PEG 03/15/18 10:00 03/15/18 10:01 Potassium Chloride (Eusebia Ciel Elix) 40 meq ONE ONCE PEG 03/15/18 10:00 03/15/18 10:01 Sorbitol (Sorbitol 70% Soln) 30 ml NOW ONCE PO 03/15/18 10:00 03/15/18 10:01 Objective Vital Signs Date Time Temp Pulse Resp B/P (MAP) Pulse Ox O2 Delivery O2 Flow Rate FiO2 03/15/18 07:20 40 03/15/18 06:00 74 16 92/63 (73) 94 Mechanical Ventilator 40 03/15/18 05:20 30 03/15/18 04:00 40 03/15/18 04:00 94 Mechanical Ventilator 40 03/15/18 04:00 36.9 81 16 111/71 (84) 94 Mechanical Ventilator 40 03/15/18 02:15 30 03/15/18 02:00 92 16 116/92 (100) 94 Mechanical Ventilator 40 03/15/18 00:01 36.9 82 16 109/74 (86) 93 Mechanical Ventilator 30 03/14/18 23:59 30 03/14/18 23:59 93 Mechanical Ventilator 30 03/14/18 23:00 30 03/14/18 22:00 74 16 100/71 (81) 95 Mechanical Ventilator 40 03/14/18 20:00 30 03/14/18 20:00 40 03/14/18 20:00 96 Mechanical Ventilator 40 03/14/18 20:00 37.0 81 16 90/64 (73) 96 Mechanical Ventilator 40 03/14/18 18:00 36.9 81 16 90/62 (71) 100 Mechanical Ventilator 30 03/14/18 16:00 30 03/14/18 16:00 36.6 80 16 95/63 (74) 100 Mechanical Ventilator 30 03/14/18 16:00 Mechanical Ventilator 30 03/14/18 15:18 30 03/14/18 14:00 71 16 103/73 (83) 94 Mechanical Ventilator 30 03/14/18 12:18 30 03/14/18 12:10 80 13 103/66 (78) 100 Mechanical Ventilator 2 03/14/18 12:04 71 13 89/58 (68) 96 Mechanical Ventilator 2 03/14/18 12:00 30 03/14/18 12:00 Mechanical Ventilator 30 03/14/18 12:00 36.6 113 16 103/66 (78) 94 Mechanical Ventilator 30 03/14/18 11:54 91 13 108/83 (91) 93 Mechanical Ventilator 2 03/14/18 11:33 30 Physical Exam General Appearance: + mild distress (moving around in the bed a bit. Taken of the ventilator, O2 over trach - trial) Neck: no JVD Respiratory/Chest: + decreased breath sounds, + crackles (few), + rhonchi Cardiovascular: regular rate, rhythm, no JVD, no murmur Abdomen: non tender, soft, + pertinent finding (PEG tube site w/o bleeding leaking or bruising) Extremities: no pedal edema Neurologic/Psych: alert, normal mood/affect, oriented x 3 Skin: no jaundice Laboratory Results Last 24 Hours Test 03/14/18 11:47 03/14/18 16:04 03/14/18 20:20 03/15/18 00:01 Bedside Glucose 118 mg/dl 96 mg/dl 113 mg/dl 104 mg/dl Test 03/15/18 04:01 03/15/18 04:16 03/15/18 05:43 Bedside Glucose 103 mg/dl Venous Blood pH 7.39 Venous Blood Partial Pressure CO2 47 mmHg Venous Blood Partial Pressure O2 58 mmHg Venous Blood HCO3 28 mmol/L Venous Blood Oxygen Saturation 86.5 % Venous Blood Base Excess 2.2 mEq/L Sodium Level 132 mmol/L Potassium Level mmol/L 4.1 mmol/L Chloride Level 100 mmol/L Carbon Dioxide Level 27 mmol/L Anion Gap 5.0 mmol/L Blood Urea Nitrogen 20 mg/dl Creatinine 0.88 mg/dl Est Creatinine Clear Calc Drug Dose 109.2 ml/min Estimated GFR () 113.7 Estimated GFR (Non- 98.1 BUN/Creatinine Ratio 22.5 Random Glucose 93 mg/dl Calcium Level 8.7 mg/dl Phosphorus Level 3.2 mg/dl Magnesium Level mg/dl 1.9 mg/dl Assessment and Plan Mr. Winchester is a 52 yr old male in respiratory failure was vented. Trach placed. PEG tube placed yesterday. PEG appears to be healing well and can be used for feedings and meds. Orders for exact feeding and amts should be from primary/critical care providers. GI will sign off. I saw and evaluated the patient. We are consulted for evaluation of a PEG tube. Tube was placed yesterday without any initial complications. At this time reports are that the feeding tube seems to be working well. Please contact with us with any questions or concerns. Once the patient has reached his baseline mental status he should follow-up with our office to have the feeding tube removed.
[2018-03-15] MEDS: OXYCODONE HCL 20 MG/1 ML UDP NG SCH ×2 (12:58→18:12)
[2018-03-15] MEDS ORDERED: NURSING VERBAL MED ORDER ONE (13:00)
[2018-03-15] MEDS: PEPTAMEN INTENSE VHP 1000ML BAG PEG PRN (13:01)
[2018-03-15] MEDS: PROPRANOLOL HCL 10 MG TAB PO SCH ×2 (14:36→20:47)
--- NOTE | 2018-03-15 16:40 | Progress Note ---
Medicine Progress Note Date & Time of Visit: Mar 15, 2018 at 16:39. Subjective Patient was seen earlier this AM after all sedation was stopped, he is moving his arms in bed and staring straight ahead but does shake head to simple yes and no questions and denies any complaints of pain. PEG tube was placed yesterday and patient will be started on tube feeds today. Patient was off the vent and on a trach collar. Objective Last 8 Hrs Date Time Temp Pulse Resp B/P (MAP) Pulse Ox O2 Delivery O2 Flow Rate FiO2 03/15/18 16:08 114 18 98 Mechanical Ventilator 40 03/15/18 16:00 40 03/15/18 16:00 Trach Collar 40 03/15/18 14:00 127 14 132/107 (115) 94 Mechanical Ventilator 40 03/15/18 12:00 135 14 93 Trach Collar 40 03/15/18 12:00 Trach Collar 40 03/15/18 12:00 40 03/15/18 11:20 Mechanical Ventilator 40 03/15/18 11:20 40 03/15/18 10:00 124 14 114/98 (103) 98 Mechanical Ventilator 40 Physical Exam: GENERAL: Patient is in no acute distress. Awake, moving upper extremities without purpose HEENT: No acute trauma, normocephalic, mucous membranes moist, no nasal congestion, no scleral icterus. NECK: No stridor, trachea is midline. LUNGS: Coarse breath sounds bilaterally, no wheeze, breath sounds equal. HEART: Without murmurs gallops or rubs, tachycardic. ABDOMEN: Soft, nontender, bowel sounds positive EXTREMITIES: No cyanosis or edema, in restraints, sedated NEUROLOGIC: awake, still not completely alert, follows some commands and answers simple yes/no questions SKIN: No rash, no jaundice, no diaphoresis. Laboratory Results: Last 24 Hours Test 03/14/18 20:20 03/15/18 00:01 03/15/18 04:01 03/15/18 04:16 Bedside Glucose 113 mg/dl 104 mg/dl 103 mg/dl Venous Blood pH 7.39 Venous Blood Partial Pressure CO2 47 mmHg Venous Blood Partial Pressure O2 58 mmHg Venous Blood HCO3 28 mmol/L Venous Blood Oxygen Saturation 86.5 % Venous Blood Base Excess 2.2 mEq/L Sodium Level 132 mmol/L Potassium Level mmol/L Chloride Level 100 mmol/L Carbon Dioxide Level 27 mmol/L Anion Gap 5.0 mmol/L Blood Urea Nitrogen 20 mg/dl Creatinine 0.88 mg/dl Est Creatinine Clear Calc Drug Dose 109.2 ml/min Estimated GFR () 113.7 Estimated GFR (Non- 98.1 BUN/Creatinine Ratio 22.5 Random Glucose 93 mg/dl Calcium Level 8.7 mg/dl Phosphorus Level 3.2 mg/dl Magnesium Level mg/dl Test 03/15/18 05:43 03/15/18 09:56 03/15/18 10:37 03/15/18 12:53 Potassium Level 4.1 mmol/L Magnesium Level 1.9 mg/dl Bedside Glucose 94 mg/dl 97 mg/dl Blood Gas Sample Site L Radial Bedside Blood Gas pH (LAB) 7.38 Bedside Blood Gas pCO2 (LAB) 47 mmHg Bedside Blood Gas pO2 (LAB) 103 mmHg Bedside Blood Gas HCO3 (LAB) 28 meq/L Bedside Blood Gas Total CO2 29 mEq/l Bedside Blood Gas Base Excess (LAB) 2.0 meq/L Bedside Blood Gas O2 Saturation 98.0 % [place] Test Pass Oxygen Delivery Device Trach Col Bedside FiO2 50 % Assessment & Plan ACUTE ON CHRONIC RESPIRATORY FAILURE: Combined Hypoxemic and Hypercapneic -secondary to hypersensitivity pneumonitis/ARDS -failure to wean off ventilator, now s/p tracheostomy 03/13/18; on cpap this AM with frequent apneic episodes -remains on methylprednisone 20 mg IV q8 hours -on xopenex -CXR 03/13/18 AM: Bilateral pulmonary airspace opacities with slight interval improvement of left lung aeration -Pulmonary service and Track Walker consulted and management appreciated -patient also underwent PEG tube placement today -Track Walker planning to lighten sedation following PEG tube placement; previous attempts to wean from sedation were not tolerated, patient was very anxious and deliberately pulling at lines and tubes when he still had an ET tube. -TTE report: EF 65-70%, No segmental left ventricular wall motion abnormalities * Grade I diastolic dysfunction. * Poorly visualized RV. * No significant valvular pathology. 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 No evidence of intracranial mass 2. No evidence of acute or subacute infarction 3. Foci of increased T2 signal within the mastoids likely inflammatory, otherwise normal MRI the brain for age -EEG: diagnosis is essentially normal, quite a bit of muscle movement artifacts , but revealing no evidence for potentially epileptogenic activity or ongoing subclinical seizure activity. -Neurology consulted, appreciate recs, do not suspect that there is a primary underlying seizure issue, but rather a toxic metabolic encephalopathy related to his pulmonary disease. -patient's reports that even at home at baseline, patient moves his extremities (possibly involuntary?) without purpose during his sleep and this has been going on for years but was not assessed for this issue before CHRONIC PAIN: -continue Gabapentin -pain control as above DEPRESSION: -continue Paxil MAHAD: -improving -had hyperkalemia, was responsive to medical management -Vascular and Nephrology were consulted -Bactrim had been discontinued but was restarted -Lasix changed to Diamox as fluid totals are no longer net positive and because there was metabolic alkalosis; now off both PNEUMONIA: possibly PJP -CXR with bilateral airspace opacities -was previously on vancomycin and azithromycin -Blood Cultures negative -karla albicans in sputum from 03/04/18, on caspofungin treatment; continued per ICU because of a lot of growth as per their discussion with pathology -BAL cultures negative, last dose of Zosyn given on 03/08/18 -urinary legionella negative, mycoplasma IgM is negative, mycoplasma IgG is equivocal, HIV negative -given LDH elevated at 538, 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; Bactrim stopped on 03/10/18 due to hyperkalemia, restarted 03/13 due to concern for possible PJP GERD: -on Pantoprazole 40mg IV daily also as GI prophylaxis -GI to do EGD and PEG tube placement NUTRITION: -pharmacy glycemic control consult involved in serum glucose management due hyperglycemia related to steroids -was on tube feeds via NG, were held for PEG tube placement, to be restarted today as PEG tube was cleared Current Inpatient Medications: Current Inpatient Medications Medications (Trade) Dose Ordered Sig/Nemo Route Start Time Stop Time Status Last Admin Dose Admin Gabapentin (Neurontin Cap) 100 mg BID PO 03/02/18 09:00 04/01/18 08:59 03/15/18 10:05 100 MG Paroxetine HCl (pAXil TAB) 40 mg DAILY PO 03/02/18 09:00 04/01/18 08:59 03/15/18 10:05 40 MG Pravastatin Sodium (Pravachol Tab) 40 mg HS PO 03/02/18 21:00 04/01/18 20:59 03/14/18 21:42 40 MG Ranitidine HCl (zANTac TAB) 300 mg BID PO 03/02/18 09:00 04/01/18 08:59 Future Hold 03/02/18 20:40 300 MG Levalbuterol (Xopenex 0.63 Mg/ 3 Ml Neb) 0.63 mg Q4H PRN INH 03/01/18 23:15 03/31/18 23:14 03/02/18 01:58 0.63 MG Acetaminophen (Tylenol Tab) 1,000 mg Q8H PRN PO 03/01/18 23:45 03/31/18 23:44 Glucose (Glucose 40% Gel) 15-30 GRAMS 15 GRAMS... UD PRN PO 03/02/18 12:45 04/01/18 12:44 Glucose (Glucose Chew Tab) 4-8 Tablets 4 Tabl... UD PRN PO 03/02/18 12:45 04/01/18 12:44 Dextrose (Dextrose 50% 50ML Syringe) 25-50ML 25ML FOR ... UD PRN IV 03/02/18 12:45 04/01/18 12:44 03/10/18 11:08 25 ML Glucagon (Glucagon Inj) 1 mg UD PRN IM 03/02/18 12:45 04/01/18 12:44 Carbohydrates (Carbohydrates For Hypoglycemia) 15-30 GRAMS 15 grams if BSG 54-69... UD PRN PO 03/02/18 12:45 04/01/18 12:44 Miscellaneous Information (Consult Glycemic Management Pharmacy) 1 ea UD PRN N/A 03/02/18 12:45 04/01/18 12:44 Ondansetron HCl (Zofran Inj) 4 mg Q6H PRN IV 03/02/18 23:45 04/01/18 23:44 Pantoprazole Sodium 40 mg/ Syringe 10 ml @ 5 mls/min DAILY@1100 IV 03/03/18 03:30 04/02/18 03:29 03/15/18 10:06 5 MLS/MIN Ipratropium Sandy (Atrovent Hfa Inhaler) 4 puffs QIDR INH 03/03/18 08:00 04/02/18 07:59 03/15/18 07:32 4 PUFFS Levalbuterol (Xopenex Hfa Inhaler) 4 puffs QIDR INH 03/03/18 08:00 04/02/18 07:59 03/15/18 07:32 4 PUFFS Heparin Sodium (Porcine) (Heparin 10 Unit/ ml 5 ml Flush) 5 ml PRN PRN FLUSH 03/05/18 23:45 04/04/18 23:44 Docusate Sodium (coLACE SYRUP) 100 mg BID PO 03/06/18 12:00 04/05/18 11:59 03/15/18 10:05 100 MG Caspofungin 50 mg/ Sodium Chloride 110 ml @ 110 mls/hr DAILY@0900 IV 03/08/18 09:00 03/19/18 09:59 03/15/18 10:06 110 MLS/HR Insulin Aspart (novoLOG ASPART) SLIDING SCALE G... Q4 SC 03/07/18 16:00 04/06/18 15:59 03/12/18 11:40 3 UNITS Diazepam (Valium Tab) 15 mg QID PO 03/08/18 13:00 04/07/18 12:59 Future Hold 03/12/18 12:48 10 MG Aspirin (Aspirin Chew) 81 mg QAM PO 03/09/18 09:00 04/08/18 08:59 Future hold 03/15/18 10:05 81 MG Insulin Glargine (Lantus Solostar Pen) BID@0800,2000 SC 03/11/18 20:00 04/10/18 19:59 03/12/18 08:35 4 UNITS Trimethoprim/ Sulfamethoxazole 448 mg/Dextrose 528 ml @ 333 mls/hr Q8H IV 03/13/18 16:00 03/20/18 15:59 03/15/18 10:06 333 MLS/HR Clonidine HCl (Catapres Tab) 0.1 mg BID PO 03/14/18 21:00 04/13/18 20:59 03/15/18 10:05 0.1 MG Senna (Senokot Syrup) 17.6 mg BID PO 03/14/18 21:00 04/08/18 08:59 03/15/18 10:04 17.6 MG Heparin Sodium (Porcine) (Heparin Sq 5000 Unit/0.5ml) 5,000 unit Q8H SQ 03/14/18 16:00 04/13/18 15:59 03/15/18 16:15 5,000 UNIT Oxycodone HCl (Roxicodone Intensol Soln) 20 mg Q6H NG 03/15/18 12:00 03/29/18 11:59 03/15/18 12:58 20 MG Hydromorphone HCl (Dilaudid Inj) 1 mg Q4H PRN IV 03/15/18 09:45 03/29/18 09:44 03/15/18 10:44 1 MG Enteral Nutritional Formula (Peptamen Intense VHP) 1,000 ml UD PRN PEG 03/15/18 10:30 04/14/18 10:29 03/15/18 13:01 1,000 ML Prednisone (PredniSONE TAB) 60 mg Taper DAILY PEG 03/16/18 09:00 04/26/18 08:59 Propranolol HCl (Inderal Tab) 10 mg TID PO 03/15/18 14:00 04/14/18 13:59 03/15/18 14:36 10 MG
--- NOTE | 2018-03-15 18:05 | Critical Care Progress Note ---
Critical Care Progress Note Date of Service Mar 15, 2018. ICU Day ICU Day Number: [address] Garcia Subjective No overnight events Objective VITAL SIGNS - Vital signs and nursing notes were reviewed. GENERAL - 52-year-old male appearing his stated age. Intubated and sedated. Awakens and agitates easily. SKIN - Multiple areas of ecchymosis noted throughout. HEAD - NC/AT. EYES - Dilated pupils bilaterally. MOUTH/OROPHARYNX -tracheostomy tube present NECK - RIGHT IJ Central Venous Catheter has been removed LUNGS - Chest wall symmetric without accessory muscle use, intercostals retractions, or central cyanosis. Coarse breath sounds bilaterally more pronounced on left side vs right CARDIAC - RRR with S1/S2. No murmur, rubs, or gallops appreciated. ABDOMEN - Abdominal contour protuberant without pulsations or visible masses. BS normoactive all four quadrants. : Campa catheter in place EXTREMITIES - No clubbing or peripheral cyanosis. No pretibial edema present. NEUROLOGIC - RASS -3; Assessment & Plan Reason Critically Ill: Mr. Winchester is a 52-year-old male with a history of asthma & COPD who was admitted to the ICU for acute on chronic respiratory failure with noted hypoxia and respiratory distress. Neuro - * Sedation: Versed: Discontinued * Valium discontinued * Propofol discontinued * Pain: Fentanyl gtt at 50mcg/hr. * Scheduled oxycodone 20mg Q6 hours Clonidine 0.1 mg twice daily Propranolol 10 mg tid * Chronic Pain: * Gabapentin * Depression: * Paxil Cardiac - * Continue home statin and ASA * ECHO showed EF = 65-70% w/grade 1 diastolic dysfunction. No wall motion abnormalities. Respiratory - * Hypersensitivity Pneumonitis/ARDS: Resolved * Patient did extremely well on trach trial * Now following commands denies feeling short of breath will continue on trach collar GI - * Tube Feeds: * Increasing * GERD - Protonix * Bowel regimen: Continue Dulcolax and milk of mag, addition of sorbitol today * Continue q72hr LFT checks 2/2 Caspofungin use. RENAL/LYTES - * Creatinine improved * Continue to follow lytes - replace appropriately. * No indication for dialysis, will maintain euvolemic at this time. * No additional diuretics today - * 20 mg Lasix * Plan is to keep patient even to negative ENDO - * Requiring Lantus coverage. HEME - * Stable H&H * Checking every 72 hours ID - * Suspected PJP: * Continue course of Bactrim, day 9 of 14 of effective therapy * Fungal oral secretions w/ c/o pna: * Caspofungin day 10 LINES/IV ACCESS - * PIVs endurance peripheral IV placed 03/13 * Campa Catheter DVT PROPHYLAXIS - * sq Heparin q8h Continued ICU observation. Consults & Procedures Consultants: ID Pulm Nephrology Vascular surgery Procedures: RIGHT IJ CVL discontinued March 13 Bronchoscopy Arterial Line, D/Cd Percutaneous tracheostomy March 13, 2018 Data Medications: Current Inpatient Medications Medications (Trade) Dose Ordered Sig/Nemo Route Start Time Stop Time Status Last Admin Dose Admin Gabapentin (Neurontin Cap) 100 mg BID PO 03/02/18 09:00 04/01/18 08:59 03/15/18 10:05 100 MG Paroxetine HCl (pAXil TAB) 40 mg DAILY PO 03/02/18 09:00 04/01/18 08:59 03/15/18 10:05 40 MG Pravastatin Sodium (Pravachol Tab) 40 mg HS PO 03/02/18 21:00 04/01/18 20:59 03/14/18 21:42 40 MG Ranitidine HCl (zANTac TAB) 300 mg BID PO 03/02/18 09:00 04/01/18 08:59 Future Hold 03/02/18 20:40 300 MG Levalbuterol (Xopenex 0.63 Mg/ 3 Ml Neb) 0.63 mg Q4H PRN INH 03/01/18 23:15 03/31/18 23:14 03/02/18 01:58 0.63 MG Acetaminophen (Tylenol Tab) 1,000 mg Q8H PRN PO 03/01/18 23:45 03/31/18 23:44 Glucose (Glucose 40% Gel) 15-30 GRAMS 15 GRAMS... UD PRN PO 03/02/18 12:45 04/01/18 12:44 Glucose (Glucose Chew Tab) 4-8 Tablets 4 Tabl... UD PRN PO 03/02/18 12:45 04/01/18 12:44 Dextrose (Dextrose 50% 50ML Syringe) 25-50ML 25ML FOR ... UD PRN IV 03/02/18 12:45 04/01/18 12:44 03/10/18 11:08 25 ML Glucagon (Glucagon Inj) 1 mg UD PRN IM 03/02/18 12:45 04/01/18 12:44 Carbohydrates (Carbohydrates For Hypoglycemia) 15-30 GRAMS 15 grams if BSG 54-69... UD PRN PO 03/02/18 12:45 04/01/18 12:44 Miscellaneous Information (Consult Glycemic Management Pharmacy) 1 ea UD PRN N/A 03/02/18 12:45 04/01/18 12:44 Ondansetron HCl (Zofran Inj) 4 mg Q6H PRN IV 03/02/18 23:45 04/01/18 23:44 Pantoprazole Sodium 40 mg/ Syringe 10 ml @ 5 mls/min DAILY@1100 IV 03/03/18 03:30 04/02/18 03:29 03/15/18 10:06 5 MLS/MIN Ipratropium [place] (Atrovent Hfa Inhaler) 4 puffs QIDR INH 03/03/18 08:00 04/02/18 07:59 03/15/18 07:32 4 PUFFS Levalbuterol (Xopenex Hfa Inhaler) 4 puffs QIDR INH 03/03/18 08:00 04/02/18 07:59 03/15/18 07:32 4 PUFFS Heparin Sodium (Porcine) (Heparin 10 Unit/ ml 5 ml Flush) 5 ml PRN PRN FLUSH 03/05/18 23:45 04/04/18 23:44 Docusate Sodium (coLACE SYRUP) 100 mg BID PO 03/06/18 12:00 04/05/18 11:59 03/15/18 10:05 100 MG Caspofungin 50 mg/ Sodium Chloride 110 ml @ 110 mls/hr DAILY@0900 IV 03/08/18 09:00 03/19/18 09:59 03/15/18 10:06 110 MLS/HR Insulin Aspart (novoLOG ASPART) SLIDING SCALE G... Q4 SC 03/07/18 16:00 04/06/18 15:59 03/12/18 11:40 3 UNITS Diazepam (Valium Tab) 15 mg QID PO 03/08/18 13:00 04/07/18 12:59 Future Hold 03/12/18 12:48 10 MG Aspirin (Aspirin Chew) 81 mg QAM PO 03/09/18 09:00 04/08/18 08:59 Future hold 03/15/18 10:05 81 MG Insulin Glargine (Lantus Solostar Pen) BID@0800,2000 SC 03/11/18 20:00 04/10/18 19:59 03/12/18 08:35 4 UNITS Trimethoprim/ Sulfamethoxazole 448 mg/Dextrose 528 ml @ 333 mls/hr Q8H IV 03/13/18 16:00 03/20/18 15:59 03/15/18 10:06 333 MLS/HR Clonidine HCl (Catapres Tab) 0.1 mg BID PO 03/14/18 21:00 04/13/18 20:59 03/15/18 10:05 0.1 MG Senna (Senokot Syrup) 17.6 mg BID PO 03/14/18 21:00 04/08/18 08:59 03/15/18 10:04 17.6 MG Heparin Sodium (Porcine) (Heparin Sq 5000 Unit/0.5ml) 5,000 unit Q8H SQ 03/14/18 16:00 04/13/18 15:59 03/15/18 16:15 5,000 UNIT Oxycodone HCl (Roxicodone Intensol Soln) 20 mg Q6H NG 03/15/18 12:00 03/29/18 11:59 03/15/18 12:58 20 MG Hydromorphone HCl (Dilaudid Inj) 1 mg Q4H PRN IV 03/15/18 09:45 03/29/18 09:44 03/15/18 10:44 1 MG Enteral Nutritional Formula (Peptamen Intense VHP) 1,000 ml UD PRN PEG 03/15/18 10:30 04/14/18 10:29 03/15/18 13:01 1,000 ML Prednisone (PredniSONE TAB) 60 mg Taper DAILY PEG 03/16/18 09:00 04/26/18 08:59 Propranolol HCl (Inderal Tab) 10 mg TID PO 03/15/18 14:00 04/14/18 13:59 03/15/18 14:36 10 MG I & O: 24-Hour Column 03/16/18 08:00 Intake Total 1070 ml Output Total 650 ml Balance 420 ml Vital Signs: Date Time Temp Pulse Resp B/P (MAP) Pulse Ox O2 Delivery O2 Flow Rate FiO2 03/15/18 16:08 114 18 98 Mechanical Ventilator 40 03/15/18 16:00 40 03/15/18 16:00 Trach Collar 40 03/15/18 14:00 127 14 132/107 (115) 94 Mechanical Ventilator 40 03/15/18 12:00 135 14 93 Trach Collar 40 03/15/18 12:00 Trach Collar 40 03/15/18 12:00 40 03/15/18 11:20 Mechanical Ventilator 40 03/15/18 11:20 40 03/15/18 10:00 124 14 114/98 (103) 98 Mechanical Ventilator 40 03/15/18 08:00 37.0 104 16 137/97 (110) 97 Mechanical Ventilator 40 03/15/18 08:00 Mechanical Ventilator 40 03/15/18 07:20 40 03/15/18 06:00 74 16 92/63 (73) 94 Mechanical Ventilator 40 03/15/18 05:20 30 03/15/18 04:00 40 03/15/18 04:00 94 Mechanical Ventilator 40 03/15/18 04:00 36.9 81 16 111/71 (84) 94 Mechanical Ventilator 40 03/15/18 02:15 30 03/15/18 02:00 92 16 116/92 (100) 94 Mechanical Ventilator 40 03/15/18 00:01 36.9 82 16 109/74 (86) 93 Mechanical Ventilator 30 03/14/18 23:59 30 03/14/18 23:59 93 Mechanical Ventilator 30 03/14/18 23:00 30 03/14/18 22:00 74 16 100/71 (81) 95 Mechanical Ventilator 40 03/14/18 20:00 30 03/14/18 20:00 40 03/14/18 20:00 96 Mechanical Ventilator 40 03/14/18 20:00 37.0 81 16 90/64 (73) 96 Mechanical Ventilator 40 03/14/18 18:00 36.9 81 16 90/62 (71) 100 Mechanical Ventilator 30 Laboratory Results: Last 24 Hours Test 03/14/18 20:20 03/15/18 00:01 03/15/18 04:01 03/15/18 04:16 Bedside Glucose 113 mg/dl 104 mg/dl 103 mg/dl Venous Blood pH 7.39 Venous Blood Partial Pressure CO2 47 mmHg Venous Blood Partial Pressure O2 58 mmHg Venous Blood HCO3 28 mmol/L Venous Blood Oxygen Saturation 86.5 % Venous Blood Base Excess 2.2 mEq/L Sodium Level 132 mmol/L Potassium Level mmol/L Chloride Level 100 mmol/L Carbon Dioxide Level 27 mmol/L Anion Gap 5.0 mmol/L Blood Urea Nitrogen 20 mg/dl Creatinine 0.88 mg/dl Est Creatinine Clear Calc Drug Dose 109.2 ml/min Estimated GFR () 113.7 Estimated GFR (Non- 98.1 BUN/Creatinine Ratio 22.5 Random Glucose 93 mg/dl Calcium Level 8.7 mg/dl Phosphorus Level 3.2 mg/dl Magnesium Level mg/dl Test 03/15/18 05:43 03/15/18 09:56 03/15/18 10:37 03/15/18 12:53 Potassium Level 4.1 mmol/L Magnesium Level 1.9 mg/dl Bedside Glucose 94 mg/dl 97 mg/dl Blood Gas Sample Site L Radial Bedside Blood Gas pH (LAB) 7.38 Bedside Blood Gas pCO2 (LAB) 47 mmHg Bedside Blood Gas pO2 (LAB) 103 mmHg Bedside Blood Gas HCO3 (LAB) 28 meq/L Bedside Blood Gas Total CO2 29 mEq/l Bedside Blood Gas Base Excess (LAB) 2.0 meq/L Bedside Blood Gas O2 Saturation 98.0 % [place] Test Pass Oxygen Delivery Device Trach Col Bedside FiO2 50 %
[2018-03-15] MEDS: MAGNESIUM OXIDE 400 MG TAB PO SCH (20:46)
[2018-03-15] MEDS: ZINC SULFATE 220 MG CAP PO SCH (20:46)
[2018-03-15] MEDS: PRAVASTATIN SOD 40 MG TAB PO SCH (20:46)
[2018-03-16] VITALS (14 sets, daily range): BP systolic 112–163; BP diastolic 80–106; PULSE 80–105; TEMP 37–37.2; O2SAT 94–99
[2018-03-16] MEDS: OXYCODONE HCL 20 MG/1 ML UDP NG SCH ×4 (00:22→18:18)
[2018-03-16] MEDS: HEPARIN SOD 5000 UNIT/0.5 ML CARP SQ SCH ×2 (00:23→07:48)
[2018-03-16] MEDS: DEXTROSE 5% IV SCH ×3 (02:01→18:18)
[2018-03-16] MEDS: TRIMETH IV SCH ×3 (02:01→18:18)
[2018-03-16] MEDS: SULFA IV SCH ×3 (02:01→18:18)
[2018-03-16] MEDS: INSULIN ASPART 100 UNITS/ML 3 ML PEN SC SCH ×6 (04:00→23:15)
[2018-03-16 05:28] LABS: CREATININE 1.02 mg/dl (0.60-1.40); PHOSPHORUS 2.4 mg/dl (2.5-4.9); POTASSIUM 4.3 mmol/L (3.5-5.1)
[2018-03-16] MEDS: POT PHOSPHATE MONOBASIC W/ SOD TAB PO SCH ×3 (06:29→12:34)
[2018-03-16] MEDS: CLONIDINE HCL 0.1 MG TAB PO SCH ×2 (07:50→20:42)
[2018-03-16] MEDS: ASPIRIN 81 MG CHEW PO SCH (07:50)
[2018-03-16] MEDS: DOCUSATE SODIUM 100 MG/10 ML UDC PO SCH ×2 (07:51→20:42)
[2018-03-16] MEDS: PROPRANOLOL HCL 10 MG TAB PO SCH ×3 (07:52→20:42)
[2018-03-16] MEDS: PAROXETINE 20 MG TAB PO SCH (07:52)
[2018-03-16] MEDS: GABAPENTIN 100 MG CAP PO SCH ×2 (07:52→20:43)
[2018-03-16] MEDS: SENNA 17.6 MG/10 ML UDP PO SCH ×2 (07:53→20:43)
[2018-03-16] MEDS: INSULIN GLARGINE SOLOSTAR 100 UNITS/ML 3 ML PEN SC SCH ×2 (07:54→23:15)
[2018-03-16] MEDS: CASPOFUNGIN INJ 50 MG in SODIUM CHLORIDE 0.9% 100ML 100 ML IV SCH (07:55)
--- NOTE | 2018-03-16 07:57 | Critical Care Progress Note ---
Critical Care Progress Note Date of Service Mar 16, 2018. ICU Day ICU Day Number: [address] London Objective General: Alert. nontoxic. Skin: Warm, dry, Head: Atraumatic Ears, nose, mouth and throat: Tracheostomy tube present Cardiovascular: Normal peripheral perfusion Respiratory: no respiratory distress Gastrointestinal: Non distended Musculoskeletal: No deformity Assessment & Plan Neuro - * Sedation: Versed: Discontinued * Valium discontinued * Propofol discontinued * Pain: Scheduled oxycodone 20mg Q6 hours * 1 mg Dilaudid for breakthrough * Will likely require slow taper over the next days to see several weeks Clonidine 0.1 mg twice daily Propranolol 10 mg tid * Chronic Pain: * Gabapentin * Depression: * Paxil Cardiac - * Continue home statin and ASA * ECHO showed EF = 65-70% w/grade 1 diastolic dysfunction. No wall motion abnormalities. Respiratory - * Hypersensitivity Pneumonitis/ARDS: Resolved * Continue aerosol trach collar * Now following commands denies feeling short of breath will continue on trach collar GI - * Tube Feeds: * Increasing * Speech and language evaluation * GERD - Zantac PO * Bowel regimen: Continue Dulcolax and milk of mag, sorbitol, magnesium citrate * No significant improvement with methylnaltrexone * Continue q72hr LFT checks 2/2 Caspofungin use. RENAL/LYTES - * Creatinine improved * Continue to follow lytes - replace appropriately. * No indication for dialysis, will maintain euvolemic at this time. - * Discontinue Campa catheter today ENDO - * Blood sugars within acceptable range * Sliding scale insulin, no basal * Steroid dependency * Prolonged steroid taper: 7 days then decrease by 10 mg weekly until 10 mg by mouth daily HEME - * Stable H&H * Checking every 72 hours ID - * Suspected PJP: * Continue course of Bactrim, day 10 of 14 of effective therapy * Fungal oral secretions w/ c/o pna: * Caspofungin day 11 of 14 LINES/IV ACCESS - * PIVs endurance peripheral IV placed 03/13 * Campa Catheter discontinued 03/16 DVT PROPHYLAXIS - * sq Heparin q8h * Converting to Lovenox 40 mg for patient comfort Stable for downgrade out of ICU PT OT evaluation ordered Will need case management for appropriate placement likely requiring rehab. Consults & Procedures Consultants: ID Pulm Nephrology Vascular surgery Procedures: RIGHT IJ CVL discontinued March 13 Bronchoscopy Arterial Line, D/Cd Percutaneous tracheostomy March 13, 2018 Data Medications: Current Inpatient Medications Medications (Trade) Dose Ordered Sig/Nemo Route Start Time Stop Time Status Last Admin Dose Admin Gabapentin (Neurontin Cap) 100 mg BID PO 03/02/18 09:00 04/01/18 08:59 03/15/18 20:46 100 MG Paroxetine HCl (pAXil TAB) 40 mg DAILY PO 03/02/18 09:00 04/01/18 08:59 03/15/18 10:05 40 MG Pravastatin Sodium (Pravachol Tab) 40 mg HS PO 03/02/18 21:00 04/01/18 20:59 03/15/18 20:46 40 MG Ranitidine HCl (zANTac TAB) 300 mg BID PO 03/02/18 09:00 04/01/18 08:59 Future Hold 03/02/18 20:40 300 MG Levalbuterol (Xopenex 0.63 Mg/ 3 Ml Neb) 0.63 mg Q4H PRN INH 03/01/18 23:15 03/31/18 23:14 03/02/18 01:58 0.63 MG Acetaminophen (Tylenol Tab) 1,000 mg Q8H PRN PO 03/01/18 23:45 03/31/18 23:44 Glucose (Glucose 40% Gel) 15-30 GRAMS 15 GRAMS... UD PRN PO 03/02/18 12:45 04/01/18 12:44 Glucose (Glucose Chew Tab) 4-8 Tablets 4 Tabl... UD PRN PO 03/02/18 12:45 04/01/18 12:44 Dextrose (Dextrose 50% 50ML Syringe) 25-50ML 25ML FOR ... UD PRN IV 03/02/18 12:45 04/01/18 12:44 03/10/18 11:08 25 ML Glucagon (Glucagon Inj) 1 mg UD PRN IM 03/02/18 12:45 04/01/18 12:44 Carbohydrates (Carbohydrates For Hypoglycemia) 15-30 GRAMS 15 grams if BSG 54-69... UD PRN PO 03/02/18 12:45 04/01/18 12:44 Miscellaneous Information (Consult Glycemic Management Pharmacy) 1 ea UD PRN N/A 03/02/18 12:45 04/01/18 12:44 Ondansetron HCl (Zofran Inj) 4 mg Q6H PRN IV 03/02/18 23:45 04/01/18 23:44 Pantoprazole Sodium 40 mg/ Syringe 10 ml @ 5 mls/min DAILY@1100 IV 03/03/18 03:30 04/02/18 03:29 03/15/18 10:06 5 MLS/MIN Heparin Sodium (Porcine) (Heparin 10 Unit/ ml 5 ml Flush) 5 ml PRN PRN FLUSH 03/05/18 23:45 04/04/18 23:44 Docusate Sodium (coLACE SYRUP) 100 mg BID PO 03/06/18 12:00 04/05/18 11:59 03/15/18 20:46 100 MG Caspofungin 50 mg/ Sodium Chloride 110 ml @ 110 mls/hr DAILY@0900 IV 03/08/18 09:00 03/19/18 09:59 03/15/18 10:06 110 MLS/HR Diazepam (Valium Tab) 15 mg QID PO 03/08/18 13:00 04/07/18 12:59 Future Hold 03/12/18 12:48 10 MG Aspirin (Aspirin Chew) 81 mg QAM PO 03/09/18 09:00 04/08/18 08:59 Future hold 03/15/18 10:05 81 MG Insulin Glargine (Lantus Solostar Pen) BID@0800,2000 SC 03/11/18 20:00 04/10/18 19:59 03/12/18 08:35 4 UNITS Trimethoprim/ Sulfamethoxazole 448 mg/Dextrose 528 ml @ 333 mls/hr Q8H IV 03/13/18 16:00 03/20/18 15:59 03/16/18 02:01 333 MLS/HR Clonidine HCl (Catapres Tab) 0.1 mg BID PO 03/14/18 21:00 04/13/18 20:59 03/15/18 20:47 0.1 MG Senna (Senokot Syrup) 17.6 mg BID PO 03/14/18 21:00 04/08/18 08:59 03/15/18 20:47 17.6 MG Heparin Sodium (Porcine) (Heparin Sq 5000 Unit/0.5ml) 5,000 unit Q8H SQ 03/14/18 16:00 04/13/18 15:59 03/16/18 00:23 5,000 UNIT Oxycodone HCl (Roxicodone Intensol Soln) 20 mg Q6H NG 03/15/18 12:00 03/29/18 11:59 03/16/18 06:29 20 MG Hydromorphone HCl (Dilaudid Inj) 1 mg Q4H PRN IV 03/15/18 09:45 03/29/18 09:44 03/15/18 10:44 1 MG Enteral Nutritional Formula (Peptamen Intense VHP) 1,000 ml UD PRN PEG 03/15/18 10:30 04/14/18 10:29 03/15/18 13:01 1,000 ML Prednisone (PredniSONE TAB) 60 mg Taper DAILY PEG 03/16/18 09:00 04/26/18 08:59 Propranolol HCl (Inderal Tab) 10 mg TID PO 03/15/18 14:00 04/14/18 13:59 03/15/18 20:47 10 MG Magnesium Oxide (Mag-Ox Tab) 400 mg QPM PO 03/15/18 21:00 04/14/18 20:59 03/15/18 20:46 400 MG Zinc Sulfate (Zinc Sulfate Cap) 220 mg QPM PO 03/15/18 21:00 04/14/18 20:59 03/15/18 20:46 220 MG Potassium/ Phosphorus/Sodium (Phospha 250 Neutral 155-852-130 Mg) 1 tab Q4H PO 03/16/18 06:00 03/16/18 14:01 03/16/18 06:29 1 TAB Insulin Aspart (novoLOG ASPART) SLIDING SCALE G... Q6 SC 03/16/18 08:00 04/15/18 07:59 Vital Signs: Date Time Temp Pulse Resp B/P (MAP) Pulse Ox O2 Delivery O2 Flow Rate FiO2 03/16/18 06:01 105 15 163/84 (110) 97 Trach Collar 40 03/16/18 04:01 95 14 155/106 (122) 99 Trach Collar 40 03/16/18 04:00 Trach Collar 40 03/16/18 02:01 91 11 142/94 (110) 98 Trach Collar 40 03/16/18 00:33 37.2 90 12 127/92 (104) 98 40 03/16/18 00:01 Trach Collar 40 03/15/18 22:01 92 16 168/104 (125) 98 Trach Collar 40 03/15/18 20:16 37.7 100 17 140/101 (114) 96 Trach Collar 40 03/15/18 20:00 Trach Collar 40 03/15/18 18:03 37.2 99 18 144/104 (117) 100 Trach Collar 40 03/15/18 16:08 114 18 98 Mechanical Ventilator 40 03/15/18 16:00 40 03/15/18 16:00 Trach Collar 40 03/15/18 14:00 127 14 132/107 (115) 94 Mechanical Ventilator 40 03/15/18 12:00 135 14 93 Trach Collar 40 03/15/18 12:00 Trach Collar 40 03/15/18 12:00 40 03/15/18 11:20 Mechanical Ventilator 40 03/15/18 11:20 40 03/15/18 10:00 124 14 114/98 (103) 98 Mechanical Ventilator 40 03/15/18 08:00 37.0 104 16 137/97 (110) 97 Mechanical Ventilator 40 03/15/18 08:00 Mechanical Ventilator 40 Laboratory Results: Last 24 Hours Test 03/15/18 09:56 03/15/18 10:37 03/15/18 12:53 03/15/18 16:15 Bedside Glucose 94 mg/dl 97 mg/dl 85 mg/dl Blood Gas Sample Site L Radial Bedside Blood Gas pH (LAB) 7.38 Bedside Blood Gas pCO2 (LAB) 47 mmHg Bedside Blood Gas pO2 (LAB) 103 mmHg Bedside Blood Gas HCO3 (LAB) 28 meq/L Bedside Blood Gas Total CO2 29 mEq/l Bedside Blood Gas Base Excess (LAB) 2.0 meq/L Bedside Blood Gas O2 Saturation 98.0 % [place] Test Pass Oxygen Delivery Device Trach Col Bedside FiO2 50 % Test 03/15/18 19:47 03/15/18 22:23 03/15/18 23:43 03/16/18 03:53 Bedside Glucose 130 mg/dl 94 mg/dl 93 mg/dl 97 mg/dl Test 03/16/18 04:25 Sodium Level 133 mmol/L Potassium Level 4.3 mmol/L Chloride Level 97 mmol/L Carbon Dioxide Level 31 mmol/L Anion Gap 5.0 mmol/L Blood Urea Nitrogen 19 mg/dl Creatinine 1.02 mg/dl Est Creatinine Clear Calc Drug Dose 95.3 ml/min Estimated GFR () 96.8 Estimated GFR (Non- 83.5 BUN/Creatinine Ratio 18.4 Random Glucose 68 mg/dl Calcium Level 9.0 mg/dl Phosphorus Level 2.4 mg/dl Magnesium Level 2.1 mg/dl Chemistry Specimen Hemolysis
[2018-03-16] MEDS ORDERED: MAGNESIUM CITRATE 296 ML/BTL PEG ONE (08:30)
[2018-03-16] MEDS: PANTOprazole INJ 40 MG in SYRINGE 0 ML IV SCH (10:09)
--- NOTE | 2018-03-16 10:56 | Pharmacy Progress Note ---
Pharmacy Glycemic Short Note 2 Date of Service Mar 16, 2018. OUTPATIENT ANTIDIABETIC REGIMEN: * None * A1c = 5.9% Item Value Date Time Bedside Glucose 76 mg/dl 03/16/18 0752 Random Glucose 68 mg/dl L 03/16/18 0425 Bedside Glucose 97 mg/dl 03/16/18 0353 Bedside Glucose 93 mg/dl 03/15/18 2343 Bedside Glucose 94 mg/dl 03/15/18 2223 Bedside Glucose 130 mg/dl H 03/15/18 1947 Bedside Glucose 85 mg/dl 03/15/18 1615 Bedside Glucose 97 mg/dl 03/15/18 1253 Bedside Glucose 94 mg/dl 03/15/18 0956 Random Glucose 93 mg/dl 03/15/18 0416 Bedside Glucose 103 mg/dl H 03/15/18 0401 ASSESSMENT: 03/16/18 * Insulin sensitivity improved since transition off IV solu-medrol to Prednisone via PEG tube yesterday * Given the number of BSG below 140 in the last 24 hrs with no insulin on board - will remove the CR and change Lantus order such that a dose will not be given unless BSG exceeds 180 * Continuous tube feeds continue and are being titrated to goal 03/14-03/15/18 * Adequate BSG control * No changes to insulin regimen 03/13/18 * Glycemic control acceptable * Notable events in last 24 hours: steroid dose being reduced today, pt's tube feeds held yesterday evening and remain on hold, possible trach/PEG today * Given decrease in steroids dose and TF's are on hold; will hold Lantus dose this AM and reduce doses on scale 03/12/18 * BSGs did begin to climb overnight, peaking at 214 however are now trending back to goal * Continuous tube feeds continue @ same rate as yesterday; steroids also continue at same dose; pt remains intubated * Given upwards trend in BSGs will resume basal insulin per scale and up the prandial insulin dose to cover tube feeds 03/11/18 * Multiple stressors continue: mechanical vent, agitation, IV steroids, continuous tube feeds, possible infxn * BSGs have been below desired goal for ICU patient, this is despite receiving continuous tube feeds * Will hold this AM's dose of basal insulin and reduce the prandial insulin dose given to cover tube feeds * Ideally would like BSGs closer to 140-180 range * Episode of hypoglycemia yesterday may have been secondary to IV insulin / Dextrose given for hyperkalemia PLAN FOR INPATIENT GLYCEMIC CONTROL: * Basal insulin (dose decreased) * Lantus BID per the following scale: if BSG less than 180 give 0 units; if BSG 180 or greater give 5 units * Bolus insulin * Change NovoLog to Q 6 hours * Goal Range: Low 130 mg/dL - High 160 mg/dL (no change) * Correction Factor: 25 mg/dL/unit (no change) * Nutritional / Prandial insulin per carb ratio of 1 unit per 0 grams CHO consumed (dose decrease)
[2018-03-16] MEDS: MAGNESIUM CITRATE 296 ML/BTL PEG SCH ×3 (12:26→19:00)
[2018-03-16] MEDS: ENOXAPARIN 40 MG/0.4 ML SYR SQ SCH (14:05)
--- NOTE | 2018-03-16 18:01 | Progress Note ---
Medicine Progress Note Date & Time of Visit: Mar 16, 2018 at 18:00. Subjective Patient is awake, answers questions, movements are purposeful. Was reportedly up in the bed earlier. No overnight events noted. Off all sedation. Has a sitter at the bedside. He otherwise denies any complaints. Tolerating tube feeds. Objective Last 8 Hrs Date Time Temp Pulse Resp B/P (MAP) Pulse Ox O2 Delivery O2 Flow Rate FiO2 03/16/18 16:00 80 20 120/82 (95) 96 Trach Collar 03/16/18 16:00 Trach Collar 40 03/16/18 14:00 84 20 130/89 (103) 95 Trach Collar 03/16/18 12:00 84 22 130/89 (103) 95 Trach Collar 03/16/18 12:00 94 Trach Collar Physical Exam: GENERAL: Patient is in no acute distress. Awakens easily. HEENT: No acute trauma, normocephalic, mucous membranes moist, no nasal congestion, no scleral icterus. NECK: No stridor, trachea is midline. LUNGS: Coarse breath sounds bilaterally, no wheeze, breath sounds equal. HEART: Without murmurs gallops or rubs, tachycardic. ABDOMEN: Soft, nontender, bowel sounds positive EXTREMITIES: No cyanosis or edema, moving all 4 extremities without pain or difficulty. NEUROLOGIC: awake, follows some commands, answers simple questions, movement is more purposeful SKIN: No rash, no jaundice, no diaphoresis. Laboratory Results: Last 24 Hours Test 03/15/18 19:47 03/15/18 22:23 03/15/18 23:43 03/16/18 03:53 Bedside Glucose 130 mg/dl 94 mg/dl 93 mg/dl 97 mg/dl Test 03/16/18 04:25 03/16/18 07:52 03/16/18 12:22 Sodium Level 133 mmol/L Potassium Level 4.3 mmol/L Chloride Level 97 mmol/L Carbon Dioxide Level 31 mmol/L Anion Gap 5.0 mmol/L Blood Urea Nitrogen 19 mg/dl Creatinine 1.02 mg/dl Est Creatinine Clear Calc Drug Dose 95.3 ml/min Estimated GFR () 96.8 Estimated GFR (Non- 83.5 BUN/Creatinine Ratio 18.4 Random Glucose 68 mg/dl Calcium Level 9.0 mg/dl Phosphorus Level 2.4 mg/dl Magnesium Level 2.1 mg/dl Chemistry Specimen Hemolysis Bedside Glucose 76 mg/dl 187 mg/dl Assessment & Plan ACUTE ON CHRONIC RESPIRATORY FAILURE: Combined Hypoxemic and Hypercapneic -secondary to hypersensitivity pneumonitis/ARDS -failure to wean off ventilator, now s/p tracheostomy 03/13/18 -methylprednisone changed to prednisone taper -on xopenex -CXR 03/13/18 AM: Bilateral pulmonary airspace opacities with slight interval improvement of left lung aeration -CXR 03/14/18: bilateral interstitial pulmonary opacities right greater than left. -Pulmonary service and Examination Scorer consulted and management appreciated -patient also underwent PEG tube placement which is functional -TTE report: EF 65-70%, No segmental left ventricular wall motion abnormalities * Grade I diastolic dysfunction. * Poorly visualized RV. * No significant valvular pathology. 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 No evidence of intracranial mass 2. No evidence of acute or subacute infarction 3. Foci of increased T2 signal within the mastoids likely inflammatory, otherwise normal MRI the brain for age -EEG: diagnosis is essentially normal, quite a bit of muscle movement artifacts , but revealing no evidence for potentially epileptogenic activity or ongoing subclinical seizure activity. -Neurology consulted, appreciate recs, do not suspect that there is a primary underlying seizure issue, but rather a toxic metabolic encephalopathy related to his pulmonary disease. -patient's reports that even at home at baseline, patient moves his extremities (possibly involuntary?) without purpose during his sleep and this has been going on for years but was not assessed for this issue before CHRONIC PAIN: -continue Gabapentin -pain control as above DEPRESSION: -continue Paxil MAHAD: -improving -had hyperkalemia, was responsive to medical management -Vascular and Nephrology were consulted -Bactrim had been discontinued but was restarted -Lasix changed to Diamox as fluid totals are no longer net positive and because there was metabolic alkalosis; now off both PNEUMONIA: possibly PJP -CXR with bilateral airspace opacities -was previously on vancomycin and azithromycin -Blood Cultures negative -karla albicans in sputum from 03/04/18, on caspofungin treatment; continued per ICU because of a lot of growth as per their discussion with micro -BAL cultures negative, last dose of Zosyn given on 03/08/18 -urinary legionella negative, mycoplasma IgM is negative, mycoplasma IgG is equivocal, HIV negative -given LDH elevated at 538, 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; Bactrim stopped on 03/10/18 due to hyperkalemia, restarted 03/13 due to concern for possible PJP GERD: -on Pantoprazole 40mg IV daily also as GI prophylaxis -GI performed EGD and PEG tube placement NUTRITION: -pharmacy glycemic control consult involved in serum glucose management due to hyperglycemia related to steroids -on tube feeds Current Inpatient Medications: Current Inpatient Medications Medications (Trade) Dose Ordered Sig/Nemo Route Start Time Stop Time Status Last Admin Dose Admin Gabapentin (Neurontin Cap) 100 mg BID PO 03/02/18 09:00 04/01/18 08:59 03/16/18 07:52 100 MG Paroxetine HCl (pAXil TAB) 40 mg DAILY PO 03/02/18 09:00 04/01/18 08:59 03/16/18 07:52 40 MG Pravastatin Sodium (Pravachol Tab) 40 mg HS PO 03/02/18 21:00 04/01/18 20:59 03/15/18 20:46 40 MG Levalbuterol (Xopenex 0.63 Mg/ 3 Ml Neb) 0.63 mg Q4H PRN INH 03/01/18 23:15 03/31/18 23:14 03/02/18 01:58 0.63 MG Acetaminophen (Tylenol Tab) 1,000 mg Q8H PRN PO 03/01/18 23:45 03/31/18 23:44 Glucose (Glucose 40% Gel) 15-30 GRAMS 15 GRAMS... UD PRN PO 03/02/18 12:45 04/01/18 12:44 Glucose (Glucose Chew Tab) 4-8 Tablets 4 Tabl... UD PRN PO 03/02/18 12:45 04/01/18 12:44 Dextrose (Dextrose 50% 50ML Syringe) 25-50ML 25ML FOR ... UD PRN IV 03/02/18 12:45 04/01/18 12:44 03/10/18 11:08 25 ML Glucagon (Glucagon Inj) 1 mg UD PRN IM 03/02/18 12:45 04/01/18 12:44 Carbohydrates (Carbohydrates For Hypoglycemia) 15-30 GRAMS 15 grams if BSG 54-69... UD PRN PO 03/02/18 12:45 04/01/18 12:44 Miscellaneous Information (Consult Glycemic Management Pharmacy) 1 ea UD PRN N/A 03/02/18 12:45 04/01/18 12:44 Ondansetron HCl (Zofran Inj) 4 mg Q6H PRN IV 03/02/18 23:45 04/01/18 23:44 Pantoprazole Sodium 40 mg/ Syringe 10 ml @ 5 mls/min DAILY@1100 IV 03/03/18 03:30 04/02/18 03:29 03/16/18 10:09 5 MLS/MIN Heparin Sodium (Porcine) (Heparin 10 Unit/ ml 5 ml Flush) 5 ml PRN PRN FLUSH 03/05/18 23:45 04/04/18 23:44 Docusate Sodium (coLACE SYRUP) 100 mg BID PO 03/06/18 12:00 04/05/18 11:59 03/16/18 07:51 100 MG Caspofungin 50 mg/ Sodium Chloride 110 ml @ 110 mls/hr DAILY@0900 IV 03/08/18 09:00 03/19/18 09:59 03/16/18 07:55 110 MLS/HR Diazepam (Valium Tab) 15 mg QID PO 03/08/18 13:00 04/07/18 12:59 Future Hold 03/12/18 12:48 10 MG Aspirin (Aspirin Chew) 81 mg QAM PO 03/09/18 09:00 04/08/18 08:59 Future hold 03/16/18 07:50 81 MG Trimethoprim/ Sulfamethoxazole 448 mg/Dextrose 528 ml @ 333 mls/hr Q8H IV 03/13/18 16:00 03/20/18 15:59 03/16/18 10:09 333 MLS/HR Clonidine HCl (Catapres Tab) 0.1 mg BID PO 03/14/18 21:00 04/13/18 20:59 03/16/18 07:50 0.1 MG Senna (Senokot Syrup) 17.6 mg BID PO 03/14/18 21:00 04/08/18 08:59 03/16/18 07:53 17.6 MG Oxycodone HCl (Roxicodone Intensol Soln) 20 mg Q6H NG 03/15/18 12:00 03/29/18 11:59 03/16/18 12:25 20 MG Hydromorphone HCl (Dilaudid Inj) 1 mg Q4H PRN IV 03/15/18 09:45 03/29/18 09:44 03/15/18 10:44 1 MG Enteral Nutritional Formula (Peptamen Intense VHP) 1,000 ml UD PRN PEG 03/15/18 10:30 04/14/18 10:29 03/15/18 13:01 1,000 ML Propranolol HCl (Inderal Tab) 10 mg TID PO 03/15/18 14:00 04/14/18 13:59 03/16/18 12:30 10 MG Magnesium Oxide (Mag-Ox Tab) 400 mg QPM PO 03/15/18 21:00 04/14/18 20:59 03/15/18 20:46 400 MG Zinc Sulfate (Zinc Sulfate Cap) 220 mg QPM PO 03/15/18 21:00 04/14/18 20:59 03/15/18 20:46 220 MG Insulin Aspart (novoLOG ASPART) SLIDING SCALE G... Q6 SC 03/16/18 08:00 04/15/18 07:59 03/16/18 12:29 2 UNITS Magnesium Citrate (Citrate Of Magnesia Soln) 60 ml Q4 PEG 03/16/18 12:00 03/16/18 20:01 03/16/18 12:26 60 ML Prednisone (PredniSONE TAB) 60 mg Taper DAILY PEG 03/16/18 09:00 04/19/19 08:59 Future hold Enoxaparin Sodium (Lovenox Inj) 40 mg DAILY@1400 SQ 03/16/18 14:00 04/15/18 13:59 03/16/18 14:05 40 MG Ranitidine HCl (zANTac SYRUP) 150 mg BID PEG 03/16/18 21:00 04/15/18 20:59 Insulin Glargine (Lantus Solostar Pen) SEE PROTOCOL TEXT BID@0000,1200 SC 03/17/18 00:00 04/16/18 00:00
--- NOTE | 2018-03-16 19:24 | Critical Care Progress Note ---
Critical Care Progress Note Date of Service Mar 16, 2018. Critical Care Progress Note Pt is CAM positive. In the attempts to begin dosing Seroquel 50mg q12h an EKG was performed for QTc measurement. Pts EKG was abnormal stating Acute RI / STEMI in the Inferolateral leads. EKG is not consistent with Acute RI. I have shown the EKG to Dr. Serafin London who is in agreement. We will repeat an EKG in 15 minutes and trend troponin to verify. Pt denies any pain/discomfort including chest pain. He has no numbness, tingling, lightheadedness, or dizziness. States he has no SOB, N/V. Pt does state the he always has a "horrible" and "abnormal" EKG. Plan: Trend troponin q8h x 3 (unless neg in the first draws) Repeat EKG Begin Seroquel 50mg q 12h when QTc is < 450
[2018-03-16] MEDS: RANITIDINE HCL SYRUP 150 MG/10 ML UDC PEG SCH (20:41)
[2018-03-16] MEDS: PRAVASTATIN SOD 40 MG TAB PO SCH (20:42)
[2018-03-16] MEDS: ZINC SULFATE 220 MG CAP PO SCH (20:43)
[2018-03-16] MEDS: MAGNESIUM OXIDE 400 MG TAB PO SCH (20:43)
[2018-03-16] MEDS ORDERED: QUETIAPINE FUMARATE 25 MG TAB PO ONE (21:20)
[2018-03-17] VITALS (15 sets, daily range): BP systolic 106–137; BP diastolic 70–91; PULSE 84–118; TEMP 36.3–37.1; O2SAT 91–100
[2018-03-17] MEDS: OXYCODONE HCL 20 MG/1 ML UDP NG SCH ×4 (01:10→21:56)
[2018-03-17] MEDS: SULFA IV SCH ×3 (01:45→18:18)
[2018-03-17] MEDS: TRIMETH IV SCH ×3 (01:45→18:18)
[2018-03-17] MEDS: DEXTROSE 5% IV SCH ×3 (01:45→18:18)
[2018-03-17 04:56] LABS: BLOOD UREA NITROGEN 19 mg/dl (7-18); CALCIUM 8.6 mg/dl (8.5-10.1); CARBON DIOXIDE 29 mmol/L (21-32); CREATININE 0.93 mg/dl (0.60-1.40); GLUCOSE 86 mg/dl (70-99); PHOSPHORUS 3.3 mg/dl (2.5-4.9); SODIUM 133 mmol/L (136-145)
[2018-03-17] MEDS: PEPTAMEN INTENSE VHP 1000ML BAG PEG PRN (05:09)
[2018-03-17] MEDS: INSULIN ASPART 100 UNITS/ML 3 ML PEN SC SCH ×3 (05:53→18:00)
[2018-03-17] MEDS: CASPOFUNGIN INJ 50 MG in SODIUM CHLORIDE 0.9% 100ML 100 ML IV SCH (08:07)
[2018-03-17] MEDS: RANITIDINE HCL SYRUP 150 MG/10 ML UDC PEG SCH ×2 (08:08→21:51)
[2018-03-17] MEDS: PROPRANOLOL HCL 10 MG TAB PO SCH ×3 (08:09→21:13)
[2018-03-17] MEDS: ASPIRIN 81 MG CHEW PO SCH (08:09)
[2018-03-17] MEDS: PAROXETINE 20 MG TAB PO SCH (08:09)
[2018-03-17] MEDS: SENNA 17.6 MG/10 ML UDP PO SCH ×2 (08:09→21:00)
[2018-03-17] MEDS: DOCUSATE SODIUM 100 MG/10 ML UDC PO SCH ×2 (08:09→21:52)
[2018-03-17] MEDS: GABAPENTIN 100 MG CAP PO SCH ×2 (08:09→21:12)
[2018-03-17] MEDS: CLONIDINE HCL 0.1 MG TAB PO SCH ×2 (08:10→21:08)
[2018-03-17] MEDS: QUETIAPINE FUMARATE 25 MG TAB PO SCH ×2 (08:12→21:11)
--- NOTE | 2018-03-17 08:49 | Critical Care Progress Note ---
Critical Care Progress Note Date of Service Mar 17, 2018. ICU Day ICU Day Number: [address] London Subjective No overnight events Objective General: Alert. nontoxic. Skin: Warm, dry, Head: Atraumatic Ears, nose, mouth and throat: Tracheostomy tube present Cardiovascular: Normal peripheral perfusion Respiratory: no respiratory distress Gastrointestinal: Non distended Musculoskeletal: No deformity Assessment & Plan Neuro - * Sedation: Versed: Discontinued * Valium discontinued * Propofol discontinued * Pain: Scheduled oxycodone 20mg Q6 hours, extending dosing to q8 hours * 1 mg Dilaudid for breakthrough: discontinuing today * adding oxycodone 5mg q6 prn breakthrough pain Clonidine 0.1 mg twice daily Propranolol 10 mg tid * Chronic Pain: * Gabapentin * Depression: * Paxil * ICU Delirium * Seroquel 50 BID Cardiac - * Continue home statin and ASA * ECHO showed EF = 65-70% w/grade 1 diastolic dysfunction. No wall motion abnormalities. * Repeat EKG likely repolarization variant, cardiac enzymes remained negative, patient without chest pain Respiratory - * Hypersensitivity Pneumonitis/ARDS: Resolved * Continue aerosol trach collar * tolerating PMV * will discuss with thoracic surgery possible decannulation GI - * Tube Feeds: * Increasing * Speech and language evaluation pending * GERD - Zantac PO * Bowel regimen: Continue Dulcolax and milk of mag, sorbitol, magnesium citrate * No significant improvement with methylnaltrexone * Continue q72hr LFT checks 2/2 Caspofungin use. RENAL/LYTES - * Creatinine improved * Continue to follow lytes - replace appropriately. * No indication for dialysis, will maintain euvolemic at this time. - * Discontinue Campa catheter today ENDO - * Blood sugars within acceptable range * Sliding scale insulin, no basal * Steroid dependency * Prolonged steroid taper: 7 days then decrease by 10 mg weekly until 10 mg by mouth daily HEME - * Stable H&H * Checking every 72 hours ID - * Suspected PJP: * Continue course of Bactrim, day 11 of 14 of effective therapy * Fungal oral secretions w/ c/o pna: * Caspofungin day 12 of LINES/IV ACCESS - * PIVs endurance peripheral IV placed 03/13 * Campa Catheter discontinued 03/16 DVT PROPHYLAXIS - * sq lovenox 40mg Stable for downgrade out of ICU PT OT evaluation ordered Will need case management for appropriate placement likely requiring rehab. Consults & Procedures Consultants: ID Pulm Nephrology Vascular surgery Procedures: RIGHT IJ CVL discontinued March 13 Bronchoscopy Arterial Line, D/Cd Percutaneous tracheostomy March 13, 2018 Data Medications: Current Inpatient Medications Medications (Trade) Dose Ordered Sig/Nemo Route Start Time Stop Time Status Last Admin Dose Admin Gabapentin (Neurontin Cap) 100 mg BID PO 03/02/18 09:00 04/01/18 08:59 03/16/18 20:43 100 MG Paroxetine HCl (pAXil TAB) 40 mg DAILY PO 03/02/18 09:00 04/01/18 08:59 03/16/18 07:52 40 MG Pravastatin Sodium (Pravachol Tab) 40 mg HS PO 03/02/18 21:00 04/01/18 20:59 03/16/18 20:42 40 MG Levalbuterol (Xopenex 0.63 Mg/ 3 Ml Neb) 0.63 mg Q4H PRN INH 03/01/18 23:15 03/31/18 23:14 03/02/18 01:58 0.63 MG Acetaminophen (Tylenol Tab) 1,000 mg Q8H PRN PO 03/01/18 23:45 03/31/18 23:44 Glucose (Glucose 40% Gel) 15-30 GRAMS 15 GRAMS... UD PRN PO 03/02/18 12:45 04/01/18 12:44 Glucose (Glucose Chew Tab) 4-8 Tablets 4 Tabl... UD PRN PO 03/02/18 12:45 04/01/18 12:44 Dextrose (Dextrose 50% 50ML Syringe) 25-50ML 25ML FOR ... UD PRN IV 03/02/18 12:45 04/01/18 12:44 03/10/18 11:08 25 ML Glucagon (Glucagon Inj) 1 mg UD PRN IM 03/02/18 12:45 04/01/18 12:44 Carbohydrates (Carbohydrates For Hypoglycemia) 15-30 GRAMS 15 grams if BSG 54-69... UD PRN PO 03/02/18 12:45 04/01/18 12:44 Miscellaneous Information (Consult Glycemic Management Pharmacy) 1 ea UD PRN N/A 03/02/18 12:45 04/01/18 12:44 Ondansetron HCl (Zofran Inj) 4 mg Q6H PRN IV 03/02/18 23:45 04/01/18 23:44 Pantoprazole Sodium 40 mg/ Syringe 10 ml @ 5 mls/min DAILY@1100 IV 03/03/18 03:30 04/02/18 03:29 03/16/18 10:09 5 MLS/MIN Heparin Sodium (Porcine) (Heparin 10 Unit/ ml 5 ml Flush) 5 ml PRN PRN FLUSH 03/05/18 23:45 04/04/18 23:44 Docusate Sodium (coLACE SYRUP) 100 mg BID PO 03/06/18 12:00 04/05/18 11:59 03/16/18 20:42 100 MG Caspofungin 50 mg/ Sodium Chloride 110 ml @ 110 mls/hr DAILY@0900 IV 03/08/18 09:00 03/19/18 09:59 03/16/18 07:55 110 MLS/HR Diazepam (Valium Tab) 15 mg QID PO 03/08/18 13:00 04/07/18 12:59 Future Hold 03/12/18 12:48 10 MG Aspirin (Aspirin Chew) 81 mg QAM PO 03/09/18 09:00 04/08/18 08:59 Future hold 03/16/18 07:50 81 MG Trimethoprim/ Sulfamethoxazole 448 mg/Dextrose 528 ml @ 333 mls/hr Q8H IV 03/13/18 16:00 03/20/18 15:59 03/17/18 01:45 333 MLS/HR Clonidine HCl (Catapres Tab) 0.1 mg BID PO 03/14/18 21:00 04/13/18 20:59 03/16/18 20:42 0.1 MG Senna (Senokot Syrup) 17.6 mg BID PO 03/14/18 21:00 04/08/18 08:59 03/16/18 20:43 17.6 MG Oxycodone HCl (Roxicodone Intensol Soln) 20 mg Q6H NG 03/15/18 12:00 03/29/18 11:59 03/17/18 05:58 20 MG Hydromorphone HCl (Dilaudid Inj) 1 mg Q4H PRN IV 03/15/18 09:45 7/4/18 09:44 03/15/18 10:44 1 MG Enteral Nutritional Formula (Peptamen Intense VHP) 1,000 ml UD PRN PEG 03/15/18 10:30 04/14/18 10:29 03/17/18 05:09 1,000 ML Propranolol HCl (Inderal Tab) 10 mg TID PO 03/15/18 14:00 04/14/18 13:59 03/16/18 20:42 10 MG Magnesium Oxide (Mag-Ox Tab) 400 mg QPM PO 03/15/18 21:00 04/14/18 20:59 03/16/18 20:43 400 MG Zinc Sulfate (Zinc Sulfate Cap) 220 mg QPM PO 03/15/18 21:00 04/14/18 20:59 03/16/18 20:43 220 MG Insulin Aspart (novoLOG ASPART) SLIDING SCALE G... Q6 SC 03/16/18 08:00 04/15/18 07:59 03/16/18 12:29 2 UNITS Prednisone (PredniSONE TAB) 60 mg Taper DAILY PEG 03/16/18 09:00 04/19/19 08:59 Future hold Enoxaparin Sodium (Lovenox Inj) 40 mg DAILY@1400 SQ 03/16/18 14:00 04/15/18 13:59 03/16/18 14:05 40 MG Ranitidine HCl (zANTac SYRUP) 150 mg BID PEG 03/16/18 21:00 04/15/18 20:59 03/16/18 20:41 150 MG Insulin Glargine (Lantus Solostar Pen) SEE PROTOCOL TEXT BID@0000,1200 SC 03/17/18 00:00 04/16/18 00:00 Quetiapine Fumarate (seroQUEL TAB) 50 mg Q12H PO 03/17/18 09:00 04/16/18 08:59 Vital Signs: Date Time Temp Pulse Resp B/P (MAP) Pulse Ox O2 Delivery O2 Flow Rate FiO2 03/17/18 07:36 107 16 98 Trach Collar 35 03/17/18 06:01 93 16 120/89 (99) 100 Trach Collar 10.0 35 03/17/18 04:01 84 12 106/82 (90) 97 Trach Collar 10.0 35 03/17/18 04:00 96 Trach Collar 35 03/17/18 02:01 85 12 106/87 (93) 98 Trach Collar 10.0 35 03/17/18 00:01 37.0 94 11 133/86 (102) 97 Trach Collar 10.0 35 03/17/18 00:01 96 Trach Collar 35 03/16/18 23:17 86 16 94 Trach Collar 35 03/16/18 22:08 86 14 112/80 (91) 95 Trach Collar 10.0 35 03/16/18 20:01 37.0 92 19 129/84 (99) 98 Trach Collar 10.0 35 03/16/18 20:00 98 Trach Collar 35 03/16/18 18:12 96 20 143/102 (116) 94 Trach Collar 03/16/18 16:00 80 20 120/82 (95) 96 Trach Collar 03/16/18 16:00 Trach Collar 40 03/16/18 14:00 84 20 130/89 (103) 95 Trach Collar 03/16/18 12:00 84 22 130/89 (103) 95 Trach Collar 03/16/18 12:00 94 Trach Collar 03/16/18 10:00 85 22 119/89 (99) 98 Trach Collar 03/16/18 08:33 Trach Collar 40 Laboratory Results: Last 24 Hours Test 03/16/18 12:22 03/16/18 16:00 03/16/18 18:24 03/16/18 19:37 Bedside Glucose 187 mg/dl 122 mg/dl 122 mg/dl Troponin I < 0.015 ng/ml Test 03/16/18 22:53 03/17/18 04:11 03/17/18 05:46 Bedside Glucose 73 mg/dl 91 mg/dl Sodium Level 133 mmol/L Potassium Level 4.0 mmol/L Chloride Level 98 mmol/L Carbon Dioxide Level 29 mmol/L Anion Gap 6.0 mmol/L Blood Urea Nitrogen 19 mg/dl Creatinine 0.93 mg/dl Est Creatinine Clear Calc Drug Dose 103.3 ml/min Estimated GFR () 108.2 Estimated GFR (Non- 93.4 BUN/Creatinine Ratio 19.9 Random Glucose 86 mg/dl Calcium Level 8.6 mg/dl Phosphorus Level 3.3 mg/dl Magnesium Level 2.2 mg/dl Troponin I < 0.015 ng/ml Procalcitonin 0.06 ng/ml
[2018-03-17] MEDS ORDERED: OXYCODONE HCL SOLN 5 MG/5 ML UDC PO PRN (09:00)
--- NOTE | 2018-03-17 09:59 | SURGERY PROGRESS NOTE ---
DATE: 03/17/2018 Mr. Winchester was seen today. He has had no bleeding from his tracheostomy. In fact, he has been on a trach collar. His trach is going to be capped today by Dr. London. He is much improved; however, I would not pull this trach out yet. I would give it at least a week before removing it. It will close spontaneously after that. We will continue to follow him along, but at this point I would be concerned about that. Otherwise, I think he looks quite good.
[2018-03-17] MEDS: INSULIN GLARGINE SOLOSTAR 100 UNITS/ML 3 ML PEN SC SCH (12:46)
[2018-03-17] MEDS: ENOXAPARIN 40 MG/0.4 ML SYR SQ SCH (13:33)
[2018-03-17] MEDS ORDERED: INSULIN HUMAN NPH SC ONE (13:45)
--- NOTE | 2018-03-17 13:46 | Pharmacy Progress Note ---
Glycemic: Assessment & Plan Date of Service Mar 17, 2018. Assessment & Plan Assessment * BSG's ranging 73-240 mg/dL over the last 24 hours. * Steroids switched from methylprednisolone BID to prednisone daily yesterday AM. Now also with a 2 day trend of elevated BSG at lunch - likely 2nd effects of prednisone * Hesitant to initiate basal insulin now as timing may be too late today as effects of prednisone administered this AM may already be dissipating ( yesterday HS BSG was 73 mg/dL despite 1200 BSG being >180 mg/dL). Will manage with Novolog today, but then ongoing NPH qAM. * Novolog sliding scale only for now - no CHO coverage as many of patient's BSG' s have been below goal Plan * Add NPH 5 units SC qAM (hold for BSG less than 90 mg/dL) * Continue Novolog * Goal 130-160 mg/dL * Correction factor: 25 mg/dL/unit Pharmacy will continue to monitor patient daily and write orders per [facility] inpatient glycemic control protocol. Thanks. * Please note that the plan above was derived based on current level of insulin resistance and hospital stress. These recommendations are appropriate for inpatient admission only. Plan of care upon discharge will need to be reassessed to avoid potential outpatient hypo/hyperglycemia.
--- NOTE | 2018-03-17 19:04 | Progress Note ---
Medicine Progress Note Date & Time of Visit: Mar 17, 2018 at 19:03. Subjective Patient is awake and alert but is confused. He was evaluated by Speech therapy and his PO diet was advanced. No overnight events noted. Remains on oral medications for pain control and agitation. Reportedly did not sleep overnight. Has a Passour valve and is able to converse although he is quite confused. Denies any complaints. Objective Last 8 Hrs Date Time Temp Pulse Resp B/P (MAP) Pulse Ox O2 Delivery O2 Flow Rate FiO2 03/17/18 16:00 95 Trach Collar 9.0 28 03/17/18 15:10 96 16 95 Trach Collar 28 03/17/18 14:36 37.1 95 20 126/87 (100) 93 Trach Collar 03/17/18 12:42 36.7 93 18 112/76 (88) 91 Room Air 03/17/18 11:25 36.8 88 20 95 10.0 Physical Exam: GENERAL: Patient is in no acute distress. Awakens easily. HEENT: No acute trauma, normocephalic, mucous membranes moist, no nasal congestion, no scleral icterus. NECK: No stridor, trachea is midline. LUNGS: Coarse breath sounds bilaterally, no wheeze, breath sounds equal. HEART: Without murmurs gallops or rubs, tachycardic. ABDOMEN: Soft, nontender, bowel sounds positive, slightly distended EXTREMITIES: No cyanosis or edema, moving all 4 extremities without pain or difficulty. NEUROLOGIC: awake, follows some commands, answers simple questions, movement is more purposeful SKIN: No rash, no jaundice, no diaphoresis. Laboratory Results: Last 24 Hours Test 03/16/18 19:37 03/16/18 22:53 03/17/18 04:11 03/17/18 05:46 Troponin I < 0.015 ng/ml < 0.015 ng/ml Bedside Glucose 73 mg/dl 91 mg/dl Sodium Level 133 mmol/L Potassium Level 4.0 mmol/L Chloride Level 98 mmol/L Carbon Dioxide Level 29 mmol/L Anion Gap 6.0 mmol/L Blood Urea Nitrogen 19 mg/dl Creatinine 0.93 mg/dl Est Creatinine Clear Calc Drug Dose 103.3 ml/min Estimated GFR () 108.2 Estimated GFR (Non- 93.4 BUN/Creatinine Ratio 19.9 Random Glucose 86 mg/dl Calcium Level 8.6 mg/dl Phosphorus Level 3.3 mg/dl Magnesium Level 2.2 mg/dl Procalcitonin 0.06 ng/ml Test 03/17/18 12:38 03/17/18 17:57 Bedside Glucose 240 mg/dl 129 mg/dl Assessment & Plan ACUTE ON CHRONIC RESPIRATORY FAILURE: Combined Hypoxemic and Hypercapneic -secondary to hypersensitivity pneumonitis/ARDS -failure to wean off ventilator, now s/p tracheostomy 03/13/18 -methylprednisone changed to prednisone taper -on xopenex -CXR 03/13/18 AM: Bilateral pulmonary airspace opacities with slight interval improvement of left lung aeration -CXR 03/14/18: bilateral interstitial pulmonary opacities right greater than left. -Pulmonary service and Catalogue Clerk consulted and management appreciated -patient also underwent PEG tube placement which is functional -TTE report: EF 65-70%, No segmental left ventricular wall motion abnormalities * Grade I diastolic dysfunction. * Poorly visualized RV. * No significant valvular pathology. 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 No evidence of intracranial mass 2. No evidence of acute or subacute infarction 3. Foci of increased T2 signal within the mastoids likely inflammatory, otherwise normal MRI the brain for age -EEG: diagnosis is essentially normal, quite a bit of muscle movement artifacts , but revealing no evidence for potentially epileptogenic activity or ongoing subclinical seizure activity. -Neurology consulted, appreciate recs, do not suspect that there is a primary underlying seizure issue, but rather a toxic metabolic encephalopathy related to his pulmonary disease. -patient's reports that even at home at baseline, patient moves his extremities (possibly involuntary?) without purpose during his sleep and this has been going on for years but was not assessed for this issue before -received seroquel -remains on propranolol and clonidine CHRONIC PAIN: -continue Gabapentin -pain control as above DEPRESSION: -continue Paxil MAHAD: -improved -had hyperkalemia, was responsive to medical management -Vascular and Nephrology were consulted -Bactrim had been discontinued but was restarted -Lasix changed to Diamox as fluid totals are no longer net positive and because there was metabolic alkalosis; now off both PNEUMONIA: possibly PJP -CXR with bilateral airspace opacities -was previously on vancomycin and azithromycin -Blood Cultures negative -karla albicans in sputum from 03/04/18, on caspofungin treatment; continued per ICU because of a lot of growth as per their discussion with micro -BAL cultures negative, last dose of Zosyn given on 03/08/18 -urinary legionella negative, mycoplasma IgM is negative, mycoplasma IgG is equivocal, HIV negative -given LDH elevated at 538, 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; Bactrim stopped on 03/10/18 due to hyperkalemia, restarted 03/13 due to concern for possible PJP GERD: -on Pantoprazole 40mg IV daily also as GI prophylaxis, switch to PO -GI performed EGD and PEG tube placement NUTRITION: -pharmacy glycemic control consult involved in serum glucose management due to hyperglycemia related to steroids -on tube feeds Current Inpatient Medications: Current Inpatient Medications Medications (Trade) Dose Ordered Sig/Nemo Route Start Time Stop Time Status Last Admin Dose Admin Gabapentin (Neurontin Cap) 100 mg BID PO 03/02/18 09:00 04/01/18 08:59 03/17/18 08:09 100 MG Paroxetine HCl (pAXil TAB) 40 mg DAILY PO 03/02/18 09:00 04/01/18 08:59 03/17/18 08:09 40 MG Pravastatin Sodium (Pravachol Tab) 40 mg HS PO 03/02/18 21:00 04/01/18 20:59 03/16/18 20:42 40 MG Levalbuterol (Xopenex 0.63 Mg/ 3 Ml Neb) 0.63 mg Q4H PRN INH 03/01/18 23:15 03/31/18 23:14 03/02/18 01:58 0.63 MG Acetaminophen (Tylenol Tab) 1,000 mg Q8H PRN PO 03/01/18 23:45 03/31/18 23:44 Glucose (Glucose 40% Gel) 15-30 GRAMS 15 GRAMS... UD PRN PO 03/02/18 12:45 04/01/18 12:44 Glucose (Glucose Chew Tab) 4-8 Tablets 4 Tabl... UD PRN PO 03/02/18 12:45 04/01/18 12:44 Dextrose (Dextrose 50% 50ML Syringe) 25-50ML 25ML FOR ... UD PRN IV 03/02/18 12:45 04/01/18 12:44 03/10/18 11:08 25 ML Glucagon (Glucagon Inj) 1 mg UD PRN IM 03/02/18 12:45 04/01/18 12:44 Carbohydrates (Carbohydrates For Hypoglycemia) 15-30 GRAMS 15 grams if BSG 54-69... UD PRN PO 03/02/18 12:45 04/01/18 12:44 Miscellaneous Information (Consult Glycemic Management Pharmacy) 1 ea UD PRN N/A 03/02/18 12:45 04/01/18 12:44 Ondansetron HCl (Zofran Inj) 4 mg Q6H PRN IV 03/02/18 23:45 04/01/18 23:44 Heparin Sodium (Porcine) (Heparin 10 Unit/ ml 5 ml Flush) 5 ml PRN PRN FLUSH 03/05/18 23:45 04/04/18 23:44 Docusate Sodium (coLACE SYRUP) 100 mg BID PO 03/06/18 12:00 04/05/18 11:59 03/17/18 08:09 100 MG Caspofungin 50 mg/ Sodium Chloride 110 ml @ 110 mls/hr DAILY@0900 IV 03/08/18 09:00 03/19/18 09:59 03/17/18 08:07 110 MLS/HR Aspirin (Aspirin Chew) 81 mg QAM PO 03/09/18 09:00 04/08/18 08:59 Future hold 03/17/18 08:09 81 MG Trimethoprim/ Sulfamethoxazole 448 mg/Dextrose 528 ml @ 333 mls/hr Q8H IV 03/13/18 16:00 03/20/18 15:59 03/17/18 18:18 333 MLS/HR Clonidine HCl (Catapres Tab) 0.1 mg BID PO 03/14/18 21:00 04/13/18 20:59 03/17/18 08:10 0.1 MG Senna (Senokot Syrup) 17.6 mg BID PO 03/14/18 21:00 04/08/18 08:59 03/17/18 08:09 17.6 MG Enteral Nutritional Formula (Peptamen Intense VHP) 1,000 ml UD PRN PEG 03/15/18 10:30 04/14/18 10:29 03/17/18 05:09 1,000 ML Propranolol HCl (Inderal Tab) 10 mg TID PO 03/15/18 14:00 04/14/18 13:59 03/17/18 13:32 10 MG Magnesium Oxide (Mag-Ox Tab) 400 mg QPM PO 03/15/18 21:00 04/14/18 20:59 03/16/18 20:43 400 MG Zinc Sulfate (Zinc Sulfate Cap) 220 mg QPM PO 03/15/18 21:00 04/14/18 20:59 03/16/18 20:43 220 MG Insulin Aspart (novoLOG ASPART) SLIDING SCALE G... Q6 SC 03/16/18 08:00 04/15/18 07:59 03/17/18 12:45 4 UNITS Prednisone (PredniSONE TAB) 60 mg Taper DAILY PEG 03/16/18 09:00 04/19/19 08:59 Future hold 03/17/18 08:08 60 MG Enoxaparin Sodium (Lovenox Inj) 40 mg DAILY@1400 SQ 03/16/18 14:00 04/15/18 13:59 03/17/18 13:33 40 MG Ranitidine HCl (zANTac SYRUP) 150 mg BID PEG 03/16/18 21:00 04/15/18 20:59 03/17/18 08:08 150 MG Quetiapine Fumarate (seroQUEL TAB) 50 mg Q12H PO 03/17/18 09:00 04/16/18 08:59 03/17/18 08:12 50 MG Oxycodone HCl (Roxicodone Intensol Soln) 20 mg Q8 NG 03/17/18 14:00 03/31/18 13:59 03/17/18 14:40 20 MG Oxycodone HCl (Roxicodone Soln) 5 mg Q6H PRN PO 03/17/18 09:00 03/31/18 08:59 Insulin Human NPH (novoLIN-N NPH) QDB SC 03/18/18 08:00 04/17/18 07:59
[2018-03-17] MEDS: PRAVASTATIN SOD 40 MG TAB PO SCH (21:09)
[2018-03-17] MEDS: ZINC SULFATE 220 MG CAP PO SCH (21:12)
[2018-03-17] MEDS: MAGNESIUM OXIDE 400 MG TAB PO SCH (21:12)
[2018-03-18] MEDS: SULFA IV SCH ×3 (02:11→18:30)
[2018-03-18] MEDS: TRIMETH IV SCH ×3 (02:11→18:30)
[2018-03-18] MEDS: DEXTROSE 5% IV SCH ×3 (02:11→18:30)
[2018-03-18] MEDS: INSULIN ASPART 100 UNITS/ML 3 ML PEN SC SCH ×6 (04:00→20:39)
[2018-03-18] MEDS: PEPTAMEN INTENSE VHP 1000ML BAG PEG PRN (04:37)
[2018-03-18] MEDS: OXYCODONE HCL 20 MG/1 ML UDP NG SCH (06:14)
[2018-03-18 06:37] LABS: BASO % 0.1 %; BASO ABS # 0.01 K/uL (0-0.2); HEMATOCRIT 36.2 % (42-52); HEMOGLOBIN 12.1 g/dL (14.0-18.0); IG# 0.14 K/uL (0.00-0.02); LYMPH % 26.8 %; LYMPH ABS # 2.64 K/uL (1.2-3.4); MEAN CELL VOLUME 93.3 fL (80-100); MEAN CORPUSCULAR HEMOGLOBIN 31.2 pg (25-34); MEAN CORPUSCULAR HGB CONC 33.4 g/dl (32-36); MEAN PLATELET VOLUME 10.8 fL (7.4-10.4); MONO % 9.8 %; MONO ABS # 0.96 K/uL (0.11-0.59); NEUT % 60.9 %; NEUT ABS # 5.99 K/uL (1.4-6.5); PLATELET COUNT 168 K/uL (130-400); RED CELL DISTRIBUTION WIDTH CV 14.5 % (11.5-14.5); RED CELL DISTRIBUTION WIDTH SD 48.3 fL (36.4-46.3); WHITE BLOOD COUNT 9.84 K/uL (4.8-10.8)
[2018-03-18 07:13] VITALS: BP 119/97; PULSE 97; TEMP 37.1; O2SAT 94
[2018-03-18 07:25] LABS: ALBUMIN 2.8 gm/dl (3.4-5.0); CALCIUM 8.6 mg/dl (8.5-10.1); CREATININE 0.86 mg/dl (0.60-1.40); PHOSPHORUS 2.3 mg/dl (2.5-4.9); POTASSIUM 4.1 mmol/L (3.5-5.1); TOTAL PROTEIN 6.5 gm/dl (6.4-8.2)
[2018-03-18] MEDS ORDERED: NURSING VERBAL MED ORDER ONE ×2 (07:45→10:30)
[2018-03-18] MEDS ORDERED: SODIUM PHOSPHATE 3 MMOL/1 ML INFUSION IV STA (07:53)
[2018-03-18] MEDS ORDERED: SODIUM PHOSPHATE INJ 21 MMOL in SODIUM CHLORIDE 0.9% 500ML 500 ML IV ONE (08:15)
[2018-03-18] MEDS: INSULIN HUMAN NPH SC SCH (08:48)
[2018-03-18] MEDS: ASPIRIN 81 MG CHEW PO SCH (08:55)
[2018-03-18] MEDS: CLONIDINE HCL 0.1 MG TAB PO SCH ×2 (08:55→20:27)
[2018-03-18] MEDS: PAROXETINE 20 MG TAB PO SCH (08:56)
[2018-03-18] MEDS: GABAPENTIN 100 MG CAP PO SCH ×2 (08:56→20:29)
[2018-03-18] MEDS: PROPRANOLOL HCL 10 MG TAB PO SCH ×3 (08:56→20:30)
[2018-03-18] MEDS: QUETIAPINE FUMARATE 25 MG TAB PO SCH ×2 (08:57→20:32)
[2018-03-18] MEDS: RANITIDINE HCL 150 MG TAB PO SCH ×2 (08:58→20:28)
[2018-03-18] MEDS: CASPOFUNGIN INJ 50 MG in SODIUM CHLORIDE 0.9% 100ML 100 ML IV SCH (09:12)
[2018-03-18] MEDS ORDERED: PEPTAMEN INTENSE VHP 1000ML BAG PEG PRN (10:00)
--- NOTE | 2018-03-18 10:10 | Surgery Progress Note ---
Subjective Date of Service: Mar 18, 2018. Pt. notes his breathing feel good, non-labored. Objective Vitals Date Time Temp Pulse Resp B/P (MAP) Pulse Ox O2 Delivery O2 Flow Rate FiO2 03/18/18 07:13 37.1 97 20 119/97 (104) 94 Trach Collar 03/18/18 00:00 Trach Collar 9.0 28 03/17/18 23:28 36.3 86 17 108/70 (83) 93 Trach Collar 9.0 03/17/18 21:00 105 137/91 (106) 03/17/18 21:00 Trach Collar 9.0 28 03/17/18 16:00 95 Trach Collar 9.0 28 03/17/18 15:10 96 16 95 Trach Collar 28 03/17/18 14:36 37.1 95 20 126/87 (100) 93 Trach Collar 03/17/18 12:42 36.7 93 18 112/76 (88) 91 Room Air 03/17/18 11:25 36.8 88 20 95 10.0 Physical Exam General: + well developed, + well nourished, No distress CV: + RRR Pulmonary: No accessory muscle use, No respiratory distress Additional Notes: Trach site has no signs of bleeding Assessment & Plan 52 year old male s/p percutaneous trach secondary to VDRF -pt. now weaned off vent -continue rehabilitation
[2018-03-18] MEDS ORDERED: SENNA 8.6 MG TAB PO SCH (10:30)
[2018-03-18] MEDS: DOCUSATE SODIUM 100 MG CAP PO SCH ×2 (14:33→20:30)
[2018-03-18] MEDS: SENNA 8.6 MG TAB PO SCH ×2 (14:34→20:32)
[2018-03-18] MEDS: OXYCODONE HCL 20 MG/1 ML UDP PO SCH ×2 (14:35→22:27)
[2018-03-18] MEDS: ENOXAPARIN 40 MG/0.4 ML SYR SQ SCH (14:37)
[2018-03-18 15:08] VITALS: BP 114/77; PULSE 82; TEMP 36.7; O2SAT 98
--- NOTE | 2018-03-18 18:30 | Progress Note ---
Medicine Progress Note Date & Time of Visit: Mar 18, 2018 at 18:29. Subjective Patient is awake and alert but is confused about what has happened the last couple weeks and apparently had very vivid hallucinations or dreams while he was sedated that he believed to be true. Otherwise he denies any complaints. Has occasional cough. Has been taking PO nutrition without any difficulty, still has tube feeds but they have been changed to run at night only. at the bedside and was updated. Objective Last 8 Hrs Date Time Temp Pulse Resp B/P (MAP) Pulse Ox O2 Delivery O2 Flow Rate FiO2 03/18/18 16:00 Trach Collar 9.0 28 03/18/18 15:08 36.7 82 20 114/77 (89) 98 Physical Exam: GENERAL: Patient is in no acute distress. HEENT: No acute trauma, normocephalic, mucous membranes moist, no nasal congestion, no scleral icterus. NECK: No stridor, trachea is midline. LUNGS: Coarse breath sounds bilaterally, no wheeze, breath sounds equal. HEART: Without murmurs gallops or rubs, tachycardic. ABDOMEN: Soft, nontender, bowel sounds positive, slightly distended EXTREMITIES: No cyanosis or edema, moving all 4 extremities without pain or difficulty. NEUROLOGIC: awake, oriented but sometimes forgetful, no acute motor or sensory deficits noted SKIN: No rash, no jaundice, no diaphoresis. Laboratory Results: Last 24 Hours Test 03/17/18 20:20 03/18/18 00:13 03/18/18 04:11 03/18/18 06:10 Bedside Glucose 111 mg/dl 105 mg/dl 110 mg/dl White Blood Count 9.84 K/uL Red Blood Count 3.88 M/uL Hemoglobin 12.1 g/dL Hematocrit 36.2 % Mean Corpuscular Volume 93.3 fL Mean Corpuscular Hemoglobin 31.2 pg Mean Corpuscular Hemoglobin Concent 33.4 g/dl Platelet Count 168 K/uL Mean Platelet Volume 10.8 fL Neutrophils (%) (Auto) 60.9 % Lymphocytes (%) (Auto) 26.8 % Monocytes (%) (Auto) 9.8 % Eosinophils (%) (Auto) 1.0 % Basophils (%) (Auto) 0.1 % Neutrophils # (Auto) 5.99 K/uL Lymphocytes # (Auto) 2.64 K/uL Monocytes # (Auto) 0.96 K/uL Eosinophils # (Auto) 0.10 K/uL Basophils # (Auto) 0.01 K/uL RDW Standard Deviation 48.3 fL RDW Coefficient of Variation 14.5 % Immature Granulocyte % (Auto) 1.4 % Immature Granulocyte # (Auto) 0.14 K/uL Sodium Level 134 mmol/L Potassium Level 4.1 mmol/L Chloride Level 98 mmol/L Carbon Dioxide Level 28 mmol/L Anion Gap 8.0 mmol/L Blood Urea Nitrogen 21 mg/dl Creatinine 0.86 mg/dl Est Creatinine Clear Calc Drug Dose 112.7 ml/min Estimated GFR () 114.7 Estimated GFR (Non- 99.0 BUN/Creatinine Ratio 24.1 Random Glucose 85 mg/dl Calcium Level 8.6 mg/dl Phosphorus Level 2.3 mg/dl Magnesium Level 2.0 mg/dl Total Bilirubin 0.3 mg/dl Direct Bilirubin 0.2 mg/dl Aspartate Amino Transf (AST/SGOT) 30 U/L Alanine Aminotransferase (ALT/SGPT) 66 U/L Alkaline Phosphatase 79 U/L Total Protein 6.5 gm/dl Albumin 2.8 gm/dl Test 03/18/18 08:18 03/18/18 11:28 03/18/18 16:17 Bedside Glucose 119 mg/dl 165 mg/dl 153 mg/dl Assessment & Plan ACUTE ON CHRONIC RESPIRATORY FAILURE: Combined Hypoxemic and Hypercapneic -secondary to hypersensitivity pneumonitis/ARDS, and possible pneumonia -failure to wean off ventilator, now s/p tracheostomy 03/13/18 -methylprednisone changed to prednisone taper, to decrease by 10mg every 7 days until dose gets to 10mg which is continued indefinitely -on xopenex -CXR 03/13/18 AM: Bilateral pulmonary airspace opacities with slight interval improvement of left lung aeration -CXR 03/14/18: bilateral interstitial pulmonary opacities right greater than left. -Pulmonary service and Welding [employer] consulted and management appreciated -patient also underwent PEG tube placement which is functional -TTE report: EF 65-70%, No segmental left ventricular wall motion abnormalities * Grade I diastolic dysfunction. * Poorly visualized RV. * No significant valvular pathology. 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 No evidence of intracranial mass 2. No evidence of acute or subacute infarction 3. Foci of increased T2 signal within the mastoids likely inflammatory, otherwise normal MRI the brain for age -EEG: diagnosis is essentially normal, quite a bit of muscle movement artifacts , but revealing no evidence for potentially epileptogenic activity or ongoing subclinical seizure activity. -Neurology consulted, appreciate recs, do not suspect that there is a primary underlying seizure issue, but rather a toxic metabolic encephalopathy related to his pulmonary disease. -patient's reports that even at home at baseline, patient moves his extremities (possibly involuntary?) without purpose during his sleep and this has been going on for years but was not assessed for this issue before -on seroquel -remains on propranolol and clonidine CHRONIC PAIN: -continue Gabapentin, can titrate up -pain control as above DEPRESSION: -continue Paxil MAHAD: -improved -had hyperkalemia, was responsive to medical management -Vascular and Nephrology were consulted -Bactrim had been discontinued but was restarted -Lasix changed to Diamox as fluid totals are no longer net positive and because there was metabolic alkalosis; now off both PNEUMONIA: possibly PJP but unconfirmed -CXR with bilateral airspace opacities -was previously on vancomycin and azithromycin -Blood Cultures negative -karla albicans in sputum from 03/04/18, on caspofungin treatment; continued per ICU because of a lot of growth as per their discussion with micro -BAL cultures negative, last dose of Zosyn given on 03/08/18 -urinary legionella negative, mycoplasma IgM is negative, mycoplasma IgG is equivocal, HIV negative -given LDH elevated at 538, 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; Bactrim stopped on 03/10/18 due to hyperkalemia, restarted 03/13 due to concern for possible PJP GERD: -on Pantoprazole 40mg IV daily also as GI prophylaxis, switch to PO -GI performed EGD and PEG tube placement NUTRITION: -pharmacy glycemic control consult involved in serum glucose management due to hyperglycemia related to steroids -on tube feeds but only at night as he is taking PO better now Current Inpatient Medications: Current Inpatient Medications Medications (Trade) Dose Ordered Sig/Nemo Route Start Time Stop Time Status Last Admin Dose Admin Gabapentin (Neurontin Cap) 100 mg BID PO 03/02/18 09:00 04/01/18 08:59 03/18/18 08:56 100 MG Paroxetine HCl (pAXil TAB) 40 mg DAILY PO 03/02/18 09:00 04/01/18 08:59 03/18/18 08:56 40 MG Pravastatin Sodium (Pravachol Tab) 40 mg HS PO 03/02/18 21:00 04/01/18 20:59 03/17/18 21:09 40 MG Levalbuterol (Xopenex 0.63 Mg/ 3 Ml Neb) 0.63 mg Q4H PRN INH 03/01/18 23:15 03/31/18 23:14 03/02/18 01:58 0.63 MG Acetaminophen (Tylenol Tab) 1,000 mg Q8H PRN PO 03/01/18 23:45 03/31/18 23:44 Glucose (Glucose 40% Gel) 15-30 GRAMS 15 GRAMS... UD PRN PO 03/02/18 12:45 04/01/18 12:44 Glucose (Glucose Chew Tab) 4-8 Tablets 4 Tabl... UD PRN PO 03/02/18 12:45 04/01/18 12:44 Dextrose (Dextrose 50% 50ML Syringe) 25-50ML 25ML FOR ... UD PRN IV 03/02/18 12:45 04/01/18 12:44 03/10/18 11:08 25 ML Glucagon (Glucagon Inj) 1 mg UD PRN IM 03/02/18 12:45 04/01/18 12:44 Carbohydrates (Carbohydrates For Hypoglycemia) 15-30 GRAMS 15 grams if BSG 54-69... UD PRN PO 03/02/18 12:45 04/01/18 12:44 Miscellaneous Information (Consult Glycemic Management Pharmacy) 1 ea UD PRN N/A 03/02/18 12:45 04/01/18 12:44 Ondansetron HCl (Zofran Inj) 4 mg Q6H PRN IV 03/02/18 23:45 04/01/18 23:44 Heparin Sodium (Porcine) (Heparin 10 Unit/ ml 5 ml Flush) 5 ml PRN PRN FLUSH 03/05/18 23:45 04/04/18 23:44 Caspofungin 50 mg/ Sodium Chloride 110 ml @ 110 mls/hr DAILY@0900 IV 03/08/18 09:00 03/19/18 09:59 03/18/18 09:12 110 MLS/HR Aspirin (Aspirin Chew) 81 mg QAM PO 03/09/18 09:00 04/08/18 08:59 Future hold 03/18/18 08:55 81 MG Trimethoprim/ Sulfamethoxazole 448 mg/Dextrose 528 ml @ 333 mls/hr Q8H IV 03/13/18 16:00 03/20/18 15:59 03/18/18 10:33 333 MLS/HR Clonidine HCl (Catapres Tab) 0.1 mg BID PO 03/14/18 21:00 04/13/18 20:59 03/18/18 08:55 0.1 MG Propranolol HCl (Inderal Tab) 10 mg TID PO 03/15/18 14:00 04/14/18 13:59 03/18/18 14:34 10 MG Magnesium Oxide (Mag-Ox Tab) 400 mg QPM PO 03/15/18 21:00 04/14/18 20:59 03/17/18 21:12 400 MG Zinc Sulfate (Zinc Sulfate Cap) 220 mg QPM PO 03/15/18 21:00 04/14/18 20:59 03/17/18 21:12 220 MG Enoxaparin Sodium (Lovenox Inj) 40 mg DAILY@1400 SQ 03/16/18 14:00 04/15/18 13:59 03/18/18 14:37 40 MG Quetiapine Fumarate (seroQUEL TAB) 50 mg Q12H PO 03/17/18 09:00 04/16/18 08:59 03/18/18 08:57 50 MG Oxycodone HCl (Roxicodone Soln) 5 mg Q6H PRN PO 03/17/18 09:00 03/31/18 08:59 Insulin Human NPH (novoLIN-N NPH) QDB SC 03/18/18 08:00 04/17/18 07:59 03/18/18 08:48 5 UNITS Ranitidine HCl (zANTac TAB) 150 mg BID PO 03/18/18 09:00 04/17/18 08:59 03/18/18 08:58 150 MG Oxycodone HCl (Roxicodone Intensol Soln) 20 mg Q8 PO 03/18/18 14:00 03/31/18 13:59 03/18/18 14:35 20 MG Prednisone (PredniSONE TAB) 60 mg Taper DAILY PO 03/18/18 09:15 04/20/19 09:14 Insulin Aspart (novoLOG ASPART) SLIDING SCALE G... ACHS SC 03/18/18 11:00 04/17/18 10:59 03/18/18 12:42 1 UNITS Senna (Senokot Tab) 17.2 mg BID PO 03/18/18 11:00 04/17/18 10:59 03/18/18 14:34 17.2 MG Docusate Sodium (coLACE CAP) 100 mg BID PO 03/18/18 11:00 04/17/18 10:59 03/18/18 14:33 100 MG Enteral Nutritional Formula (Peptamen Intense VHP) 1,000 ml DAILY@1900 PEG 03/18/18 19:00 04/17/18 18:59 Miscellaneous (Stop Order) 1 ea DAILY@0700 N/A 03/19/18 07:00 04/18/18 06:59
[2018-03-18] MEDS: PEPTAMEN INTENSE VHP 1000ML BAG PEG SCH (18:47)
[2018-03-18] MEDS: PRAVASTATIN SOD 40 MG TAB PO SCH (20:27)
[2018-03-18] MEDS: ZINC SULFATE 220 MG CAP PO SCH (20:29)
[2018-03-18 20:30] VITALS: BP 108/74; PULSE 85
[2018-03-18] MEDS: MAGNESIUM OXIDE 400 MG TAB PO SCH (20:31)
[2018-03-19] MEDS: TRIMETH IV SCH ×3 (02:05→18:19)
[2018-03-19] MEDS: DEXTROSE 5% IV SCH ×3 (02:05→18:19)
[2018-03-19] MEDS: SULFA IV SCH ×3 (02:05→18:19)
[2018-03-19] MEDS: OXYCODONE HCL 20 MG/1 ML UDP PO SCH ×3 (06:08→21:24)
[2018-03-19 06:50] VITALS: BP 110/80; PULSE 92; TEMP 36.7; O2SAT 97
[2018-03-19 07:02] LABS: CALCIUM 8.5 mg/dl (8.5-10.1); CREATININE 0.81 mg/dl (0.60-1.40); PHOSPHORUS 2.9 mg/dl (2.5-4.9); POTASSIUM 4.3 mmol/L (3.5-5.1)
[2018-03-19] MEDS: INSULIN HUMAN NPH SC SCH (08:00)
[2018-03-19] MEDS: INSULIN ASPART 100 UNITS/ML 3 ML PEN SC SCH ×4 (08:03→21:00)
[2018-03-19] MEDS: CLONIDINE HCL 0.1 MG TAB PO SCH ×2 (08:42→21:14)
[2018-03-19] MEDS: DOCUSATE SODIUM 100 MG CAP PO SCH ×2 (08:42→21:13)
[2018-03-19] MEDS: PROPRANOLOL HCL 10 MG TAB PO SCH ×3 (08:43→21:14)
[2018-03-19] MEDS: PAROXETINE 20 MG TAB PO SCH (08:43)
[2018-03-19] MEDS: GABAPENTIN 100 MG CAP PO SCH ×2 (08:43→21:13)
[2018-03-19] MEDS: SENNA 8.6 MG TAB PO SCH ×2 (08:45→21:15)
[2018-03-19] MEDS: QUETIAPINE FUMARATE 25 MG TAB PO SCH ×2 (08:45→21:11)
[2018-03-19] MEDS: RANITIDINE HCL 150 MG TAB PO SCH ×2 (08:46→21:10)
[2018-03-19] MEDS: CASPOFUNGIN INJ 50 MG in SODIUM CHLORIDE 0.9% 100ML 100 ML IV SCH (09:06)
[2018-03-19] MEDS: ASPIRIN 81 MG CHEW PO SCH (09:06)
[2018-03-19] MEDS ORDERED: POLYETHYLENE (MIRALAX) 17 GM PACK PO PRN (13:30)
--- NOTE | 2018-03-19 14:37 | Pharmacy Progress Note ---
Pharmacy Glycemic Short Note 2 Date of Service Mar 19, 2018. OUTPATIENT ANTIDIABETIC REGIMEN: * None * A1c = 5.9% Item Value Date Time Bedside Glucose 110 mg/dl H 03/18/18 0411 Bedside Glucose 119 mg/dl H 03/18/18 0818 Bedside Glucose 165 mg/dl H 03/18/18 1128 Bedside Glucose 153 mg/dl H 03/18/18 1617 Bedside Glucose 179 mg/dl H 03/18/182017 Bedside Glucose 83 mg/dl 03/19/18 0738 Bedside Glucose 171 mg/dl H 03/19/18 1136 ASSESSMENT: * 52 yr old male without a prior diagnosis of DM. Patient experienced hyperglycemia earlier this admission due to stress/steroids. * Solumedrol was transitioned to Prednisone PO on 03/16. Patient is on a prolonged, slow steroid taper. Pt remains on Peptamen tube feeds -> changed to cyclic administration overnight. * BSGs have been well controlled over the past several days with minimal insulin administration. He received a total of 7 units yesterday. * Post prandial BSGs very slightly elevated. Will lower goal range to allow for slight increase in correctional insulin * NPH 0-5 units qam was added to regimen on 03/18 for coverage of prednisone 60 mg. I will change order to set dose of 5 units. PLAN FOR INPATIENT GLYCEMIC CONTROL: * Basal insulin - only while on prednisone * NPH 5 units SQ qAM * Bolus insulin * Change NovoLog to Q 6 hours * Lower Goal Range: Low 120 mg/dL - High 150 mg/dL * Correction Factor: 25 mg/dL/unit * No carb ratio Thank you
[2018-03-19 14:42] VITALS: BP 117/76; PULSE 84; TEMP 36.5; O2SAT 95
[2018-03-19] MEDS: ENOXAPARIN 40 MG/0.4 ML SYR SQ SCH (14:48)
[2018-03-19 15:15] VITALS: PULSE 92; O2SAT 97
--- NOTE | 2018-03-19 18:14 | Progress Note ---
Medicine Progress Note Date & Time of Visit: Mar 19, 2018 at 18:12. Subjective Patient is doing better, less confused, at the bedside. No overnight events noted. Tolerating PO but PO intake is inadequate. No BM for several days , but otherwise has no complaints. Is hoping to get to [facility] soon. They are anxious to get the trach and PEG tubes removed but they understand that the patient needs them and is not stable enough or ready for removal yet. Objective Last 8 Hrs Date Time Temp Pulse Resp B/P (MAP) Pulse Ox O2 Delivery O2 Flow Rate FiO2 03/19/18 16:00 Trach Collar 9.0 28 03/19/18 15:15 92 16 97 Trach Collar 28 03/19/18 14:42 36.5 84 16 117/76 (90) 95 Trach Collar 9.0 28 Physical Exam: GENERAL: Patient is in no acute distress. HEENT: No acute trauma, normocephalic, mucous membranes moist, no nasal congestion, no scleral icterus. Trach NECK: No stridor, trachea is midline. LUNGS: Diminished breath sounds bilaterally, no wheeze, breath sounds equal. HEART: Without murmurs gallops or rubs, tachycardic. ABDOMEN: Soft, nontender, bowel sounds positive, slightly distended, PEG tube present EXTREMITIES: No cyanosis or edema, moving all 4 extremities without pain or difficulty. NEUROLOGIC: awake, oriented but sometimes forgetful, no acute motor or sensory deficits noted SKIN: No rash, no jaundice, no diaphoresis. Laboratory Results: Last 24 Hours Test 03/18/18 20:18 03/19/18 06:18 03/19/18 07:38 03/19/18 11:36 Bedside Glucose 179 mg/dl 83 mg/dl 171 mg/dl Sodium Level 133 mmol/L Potassium Level 4.3 mmol/L Chloride Level 97 mmol/L Carbon Dioxide Level 29 mmol/L Anion Gap 7.0 mmol/L Blood Urea Nitrogen 20 mg/dl Creatinine 0.81 mg/dl Est Creatinine Clear Calc Drug Dose 119.2 ml/min Estimated GFR () 117.6 Estimated GFR (Non- 101.5 BUN/Creatinine Ratio 25.1 Random Glucose 80 mg/dl Calcium Level 8.5 mg/dl Phosphorus Level 2.9 mg/dl Magnesium Level 2.1 mg/dl Test 03/19/18 16:12 Bedside Glucose 157 mg/dl Assessment & Plan ACUTE ON CHRONIC RESPIRATORY FAILURE: Combined Hypoxemic and Hypercapneic -secondary to hypersensitivity pneumonitis/ARDS, and possible pneumonia -failure to wean off ventilator, now s/p tracheostomy 03/13/18 -methylprednisone changed to prednisone taper, to decrease by 10mg every 7 days until dose gets to 10mg which is continued indefinitely -on xopenex -CXR 03/13/18 AM: Bilateral pulmonary airspace opacities with slight interval improvement of left lung aeration -CXR 03/14/18: bilateral interstitial pulmonary opacities right greater than left. -Pulmonary service and Wood Pattern Maker consulted and management appreciated -patient also underwent PEG tube placement which is functional -TTE report: EF 65-70%, No segmental left ventricular wall motion abnormalities * Grade I diastolic dysfunction. * Poorly visualized RV. * No significant valvular pathology. 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 No evidence of intracranial mass 2. No evidence of acute or subacute infarction 3. Foci of increased T2 signal within the mastoids likely inflammatory, otherwise normal MRI the brain for age -EEG: diagnosis is essentially normal, quite a bit of muscle movement artifacts , but revealing no evidence for potentially epileptogenic activity or ongoing subclinical seizure activity. -Neurology consulted, appreciate recs, do not suspect that there is a primary underlying seizure issue, but rather a toxic metabolic encephalopathy related to his pulmonary disease. -patient's reports that even at home at baseline, patient moves his extremities (possibly involuntary?) without purpose during his sleep and this has been going on for years but was not assessed for this issue before -on seroquel -remains on propranolol and clonidine CHRONIC PAIN: -continue Gabapentin, can titrate up -pain control as above DEPRESSION: -continue Paxil MAHAD: -improved -had hyperkalemia, was responsive to medical management -Vascular and Nephrology were consulted -Bactrim had been discontinued but was restarted -Lasix changed to Diamox as fluid totals are no longer net positive and because there was metabolic alkalosis; now off both PNEUMONIA: possibly PJP but unconfirmed -CXR with bilateral airspace opacities -was previously on vancomycin and azithromycin -Blood Cultures negative -karla albicans in sputum from 03/04/18, on caspofungin treatment; continued per ICU because of a lot of growth as per their discussion with micro -BAL cultures negative, last dose of Zosyn given on 03/08/18 -urinary legionella negative, mycoplasma IgM is negative, mycoplasma IgG is equivocal, HIV negative -given LDH elevated at 538, 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; Bactrim stopped on 03/10/18 due to hyperkalemia, restarted 03/13 due to concern for possible PJP; will receive final dose tomorrow GERD: -on Pantoprazole 40mg IV daily also as GI prophylaxis, switch to PO -GI performed EGD and PEG tube placement NUTRITION: -pharmacy glycemic control consult involved in serum glucose management due to hyperglycemia related to steroids -on tube feeds but only at night as he is taking PO better now Current Inpatient Medications: Current Inpatient Medications Medications (Trade) Dose Ordered Sig/Nemo Route Start Time Stop Time Status Last Admin Dose Admin Gabapentin (Neurontin Cap) 100 mg BID PO 03/02/18 09:00 04/01/18 08:59 03/19/18 08:43 100 MG Paroxetine HCl (pAXil TAB) 40 mg DAILY PO 03/02/18 09:00 04/01/18 08:59 03/19/18 08:43 40 MG Pravastatin Sodium (Pravachol Tab) 40 mg HS PO 03/02/18 21:00 04/01/18 20:59 03/18/18 20:27 40 MG Levalbuterol (Xopenex 0.63 Mg/ 3 Ml Neb) 0.63 mg Q4H PRN INH 03/01/18 23:15 03/31/18 23:14 03/02/18 01:58 0.63 MG Acetaminophen (Tylenol Tab) 1,000 mg Q8H PRN PO 03/01/18 23:45 03/31/18 23:44 Glucose (Glucose 40% Gel) 15-30 GRAMS 15 GRAMS... UD PRN PO 03/02/18 12:45 04/01/18 12:44 Glucose (Glucose Chew Tab) 4-8 Tablets 4 Tabl... UD PRN PO 03/02/18 12:45 04/01/18 12:44 Dextrose (Dextrose 50% 50ML Syringe) 25-50ML 25ML FOR ... UD PRN IV 03/02/18 12:45 04/01/18 12:44 03/10/18 11:08 25 ML Glucagon (Glucagon Inj) 1 mg UD PRN IM 03/02/18 12:45 04/01/18 12:44 Carbohydrates (Carbohydrates For Hypoglycemia) 15-30 GRAMS 15 grams if BSG 54-69... UD PRN PO 03/02/18 12:45 04/01/18 12:44 Miscellaneous Information (Consult Glycemic Management Pharmacy) 1 ea UD PRN N/A 03/02/18 12:45 04/01/18 12:44 Ondansetron HCl (Zofran Inj) 4 mg Q6H PRN IV 03/02/18 23:45 04/01/18 23:44 Heparin Sodium (Porcine) (Heparin 10 Unit/ ml 5 ml Flush) 5 ml PRN PRN FLUSH 03/05/18 23:45 04/04/18 23:44 Aspirin (Aspirin Chew) 81 mg QAM PO 03/09/18 09:00 04/08/18 08:59 Future hold 03/19/18 09:06 81 MG Trimethoprim/ Sulfamethoxazole 448 mg/Dextrose 528 ml @ 333 mls/hr Q8H IV 03/13/18 16:00 03/20/18 15:59 03/19/18 10:33 333 MLS/HR Clonidine HCl (Catapres Tab) 0.1 mg BID PO 03/14/18 21:00 04/13/18 20:59 03/19/18 08:42 0.1 MG Propranolol HCl (Inderal Tab) 10 mg TID PO 03/15/18 14:00 04/14/18 13:59 03/19/18 14:46 10 MG Magnesium Oxide (Mag-Ox Tab) 400 mg QPM PO 03/15/18 21:00 04/14/18 20:59 03/18/18 20:31 400 MG Zinc Sulfate (Zinc Sulfate Cap) 220 mg QPM PO 03/15/18 21:00 04/14/18 20:59 03/18/18 20:29 220 MG Enoxaparin Sodium (Lovenox Inj) 40 mg DAILY@1400 SQ 03/16/18 14:00 04/15/18 13:59 03/19/18 14:48 40 MG Quetiapine Fumarate (seroQUEL TAB) 50 mg Q12H PO 03/17/18 09:00 04/16/18 08:59 03/19/18 08:45 50 MG Oxycodone HCl (Roxicodone Soln) 5 mg Q6H PRN PO 03/17/18 09:00 03/31/18 08:59 Ranitidine HCl (zANTac TAB) 150 mg BID PO 03/18/18 09:00 04/17/18 08:59 03/19/18 08:46 150 MG Oxycodone HCl (Roxicodone Intensol Soln) 20 mg Q8 PO 03/18/18 14:00 03/31/18 13:59 03/19/18 14:47 20 MG Prednisone (PredniSONE TAB) 60 mg Taper DAILY PO 03/18/18 09:15 04/20/19 09:14 03/19/18 08:44 60 MG Insulin Aspart (novoLOG ASPART) SLIDING SCALE G... ACHS SC 03/18/18 11:00 04/17/18 10:59 03/19/18 16:53 1 UNITS Senna (Senokot Tab) 17.2 mg BID PO 03/18/18 11:00 04/17/18 10:59 03/19/18 08:45 17.2 MG Docusate Sodium (coLACE CAP) 100 mg BID PO 03/18/18 11:00 04/17/18 10:59 03/19/18 08:42 100 MG Enteral Nutritional Formula (Peptamen Intense VHP) 1,000 ml DAILY@1900 PEG 03/18/18 19:00 04/17/18 18:59 03/18/18 18:47 1,000 ML Miscellaneous (Stop Order) 1 ea DAILY@0700 N/A 03/19/18 07:00 04/18/18 06:59 03/19/18 07:16 1 EA Insulin Human NPH (novoLIN-N NPH) 5 units QDB SC 03/20/18 08:00 04/19/18 07:59 Polyethylene (Miralax Powder Packet) 17 gm DAILY PO 03/20/18 09:00 04/19/18 08:59 Polyethylene (Miralax Powder Packet) 17 gm DAILY PRN PO 03/19/18 13:30 04/18/18 13:29 03/19/18 17:41 17 GM
[2018-03-19] MEDS: PEPTAMEN INTENSE VHP 1000ML BAG PEG SCH (19:13)
[2018-03-19 19:57] VITALS: PULSE 82; O2SAT 94
[2018-03-19] MEDS: PRAVASTATIN SOD 40 MG TAB PO SCH (21:10)
[2018-03-19] MEDS: MAGNESIUM OXIDE 400 MG TAB PO SCH (21:11)
[2018-03-19] MEDS: ZINC SULFATE 220 MG CAP PO SCH (21:12)
[2018-03-19 21:25] VITALS: BP 124/84; PULSE 87; TEMP 36.9; O2SAT 98
[2018-03-20] VITALS (8 sets, daily range): BP systolic 110–124; BP diastolic 71–82; PULSE 83–96; TEMP 36.3–36.7; O2SAT 92–98
[2018-03-20] MEDS: SULFA IV SCH ×2 (02:13→10:17)
[2018-03-20] MEDS: DEXTROSE 5% IV SCH ×2 (02:13→10:17)
[2018-03-20] MEDS: TRIMETH IV SCH ×2 (02:13→10:17)
[2018-03-20] MEDS: INSULIN ASPART 100 UNITS/ML 3 ML PEN SC SCH ×4 (06:30→21:07)
[2018-03-20] MEDS: PAROXETINE 20 MG TAB PO SCH (08:55)
[2018-03-20] MEDS: SENNA 8.6 MG TAB PO SCH ×2 (08:55→20:58)
[2018-03-20] MEDS: POLYETHYLENE (MIRALAX) 17 GM PACK PO SCH (08:55)
[2018-03-20] MEDS: PROPRANOLOL HCL 10 MG TAB PO SCH ×3 (08:56→20:59)
[2018-03-20] MEDS: CLONIDINE HCL 0.1 MG TAB PO SCH ×2 (08:56→20:59)
[2018-03-20] MEDS: GABAPENTIN 100 MG CAP PO SCH ×2 (08:56→20:59)
[2018-03-20] MEDS: DOCUSATE SODIUM 100 MG CAP PO SCH ×2 (08:56→20:59)
[2018-03-20] MEDS: QUETIAPINE FUMARATE 25 MG TAB PO SCH ×2 (08:56→20:59)
[2018-03-20] MEDS: RANITIDINE HCL 150 MG TAB PO SCH ×2 (08:57→20:59)
[2018-03-20] MEDS: ASPIRIN 81 MG CHEW PO SCH (09:02)
[2018-03-20] MEDS: OXYCODONE HCL 20 MG/1 ML UDP PO SCH ×2 (09:03→21:01)
[2018-03-20] MEDS: INSULIN HUMAN NPH SC SCH (09:05)
--- NOTE | 2018-03-20 09:07 | Surgery Progress Note ---
Subjective Date of Service: Mar 20, 2018. Pt. resting in bed. He denies dyspnea and notes minimal discomfort from tracheostomy. He denies hemoptysis. Objective Vitals Date Time Temp Pulse Resp B/P (MAP) Pulse Ox O2 Delivery O2 Flow Rate FiO2 03/20/18 08:54 96 119/77 (91) 03/20/18 07:55 36.7 84 19 124/79 (94) 94 Trach Collar 9.0 28 03/20/18 00:00 Trach Collar 9.0 28 03/19/18 21:25 36.9 87 20 124/84 (97) 98 Trach Collar 9.0 28 03/19/18 20:00 Trach Collar 9.0 28 03/19/18 19:57 82 16 94 Trach Collar 28 03/19/18 16:00 Trach Collar 9.0 28 03/19/18 15:15 92 16 97 Trach Collar 28 03/19/18 14:42 36.5 84 16 117/76 (90) 95 Trach Collar 9.0 28 Physical Exam CV: + RRR Pulmonary: + pertinent finding (BS coarse but present bilaterally), No accessory muscle use, No respiratory distress Additional Notes: Tracheostomy in place with no signs of bleeding Assessment & Plan 52 year old male s/p percutaneous trach secondary to VDRF -pt. now weaned off vent -case discussed with Dr. Jimenez: -as tracheostomy is only 1 week old he feels it should not be pulled or downsized at this time -pt. may be discharged from hospital with tracheostomy in place -tracheostomy may be capped when clinically appropriate -following discharge our office will call pt. for an outpt. follow-up in approximately 1 week at which time further care of his tracheostomy will be discussed -the above plan was discussed with the patient and his at bedside as well as the primary service
[2018-03-20 09:14] LABS: HEMATOCRIT 35.5 % (42-52); HEMOGLOBIN 11.8 g/dL (14.0-18.0); MEAN CELL VOLUME 94.4 fL (80-100); MEAN CORPUSCULAR HEMOGLOBIN 31.4 pg (25-34); MEAN CORPUSCULAR HGB CONC 33.2 g/dl (32-36); MEAN PLATELET VOLUME 10.6 fL (7.4-10.4); PLATELET COUNT 147 K/uL (130-400); RED CELL DISTRIBUTION WIDTH CV 14.8 % (11.5-14.5); RED CELL DISTRIBUTION WIDTH SD 50.6 fL (36.4-46.3)
[2018-03-20 09:47] LABS: CALCIUM 8.9 mg/dl (8.5-10.1); CREATININE 0.91 mg/dl (0.60-1.40); POTASSIUM 4.8 mmol/L (3.5-5.1)
[2018-03-20] MEDS ORDERED: SODIUM PHOSPHATE 3 MMOL/1 ML INFUSION IV STA (10:27)
[2018-03-20] MEDS ORDERED: SODIUM PHOSPHATE INJ 24 MMOL in SODIUM CHLORIDE 0.9% 500ML 500 ML IV ONE (11:00)
[2018-03-20] MEDS: ENOXAPARIN 40 MG/0.4 ML SYR SQ SCH (14:16)
--- NOTE | 2018-03-20 18:06 | Progress Note ---
Medicine Progress Note Date & Time of Visit: Mar 20, 2018 at 18:00. Subjective Patient doing ok, is a bit tired today. Feels his breathing is great (down to 7L trach collar). Has been taking in some PO diet, mostly soft/pureed foods. Denies any complaints of pain despite weaning the scheduled pain medication from q8 to q12. No other complaints at this time. No overnight events noted. was not at the bedside. Objective Last 8 Hrs Date Time Temp Pulse Resp B/P (MAP) Pulse Ox O2 Delivery O2 Flow Rate FiO2 03/20/18 16:00 93 Trach Collar 6.0 28 03/20/18 15:19 36.3 84 92 03/20/18 14:15 83 110/71 (84) 03/20/18 13:43 88 95 Physical Exam: GENERAL: Patient is in no acute distress. HEENT: No acute trauma, normocephalic, mucous membranes moist, no nasal congestion, no scleral icterus. Trach NECK: No stridor, trachea is midline. LUNGS: Diminished breath sounds bilaterally, no wheeze, breath sounds equal. HEART: Without murmurs gallops or rubs, regular rate and rhythm ABDOMEN: Soft, nontender, bowel sounds positive, slightly distended, PEG tube present EXTREMITIES: No cyanosis or edema, moving all 4 extremities without pain or difficulty. NEUROLOGIC: awake, oriented, no acute motor or sensory deficits noted SKIN: No rash, no jaundice, no diaphoresis. Laboratory Results: Last 24 Hours Test 03/19/18 20:23 03/20/18 07:39 03/20/18 08:57 03/20/18 11:31 Bedside Glucose 147 mg/dl 77 mg/dl 173 mg/dl White Blood Count 7.10 K/uL Red Blood Count 3.76 M/uL Hemoglobin 11.8 g/dL Hematocrit 35.5 % Mean Corpuscular Volume 94.4 fL Mean Corpuscular Hemoglobin 31.4 pg Mean Corpuscular Hemoglobin Concent 33.2 g/dl RDW Standard Deviation 50.6 fL RDW Coefficient of Variation 14.8 % Platelet Count 147 K/uL Mean Platelet Volume 10.6 fL Sodium Level 133 mmol/L Potassium Level 4.8 mmol/L Chloride Level 96 mmol/L Carbon Dioxide Level 31 mmol/L Anion Gap 6.0 mmol/L Blood Urea Nitrogen 15 mg/dl Creatinine 0.91 mg/dl Est Creatinine Clear Calc Drug Dose 106.1 ml/min Estimated GFR () 111.1 Estimated GFR (Non- 95.9 BUN/Creatinine Ratio 16.9 Random Glucose 79 mg/dl Calcium Level 8.9 mg/dl Phosphorus Level 2.0 mg/dl Magnesium Level 2.0 mg/dl Test 03/20/18 16:52 Bedside Glucose 190 mg/dl Assessment & Plan ACUTE ON CHRONIC RESPIRATORY FAILURE: Combined Hypoxemic and Hypercapneic -secondary to hypersensitivity pneumonitis/ARDS, and possible pneumonia -was intubated on 03/03/18 -failure to wean off ventilator, now s/p tracheostomy 03/13/18 -methylprednisone changed to prednisone taper, to decrease by 10mg every 7 days until dose gets to 10mg which is continued indefinitely -on xopenex -CXR 03/13/18 AM: Bilateral pulmonary airspace opacities with slight interval improvement of left lung aeration -CXR 03/14/18: bilateral interstitial pulmonary opacities right greater than left. -Pulmonary service and Solid Fiber Paster Operator consulted and management appreciated -patient also underwent PEG tube placement which is functional -TTE report: EF 65-70%, No segmental left ventricular wall motion abnormalities * Grade I diastolic dysfunction. * Poorly visualized RV. * No significant valvular pathology. 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 No evidence of intracranial mass 2. No evidence of acute or subacute infarction 3. Foci of increased T2 signal within the mastoids likely inflammatory, otherwise normal MRI the brain for age -EEG: diagnosis is essentially normal, quite a bit of muscle movement artifacts , but revealing no evidence for potentially epileptogenic activity or ongoing subclinical seizure activity. -Neurology consulted, appreciate recs, do not suspect that there is a primary underlying seizure issue, but rather a toxic metabolic encephalopathy related to his pulmonary disease. -patient's reports that even at home at baseline, patient moves his extremities (possibly involuntary?) without purpose during his sleep and this has been going on for years but was not assessed for this issue before -on seroquel -remains on propranolol and clonidine HYPOPHOSPHATEMIA: -replete -will likely need neutra-phos upon discharge CHRONIC PAIN: -continue Gabapentin, can titrate up -pain control as above DEPRESSION: -continue Paxil MAHAD: -improved -had hyperkalemia, was responsive to medical management -Vascular and Nephrology were consulted -Bactrim had been discontinued but was restarted -Lasix changed to Diamox as fluid totals are no longer net positive and because there was metabolic alkalosis; now off both PNEUMONIA: possibly PJP but unconfirmed -CXR with bilateral airspace opacities -was previously on vancomycin and azithromycin -Blood Cultures negative -karla albicans in sputum from 03/04/18, on caspofungin treatment; continued per ICU because of a lot of growth as per their discussion with micro -BAL cultures negative, last dose of Zosyn given on 03/08/18 -urinary legionella negative, mycoplasma IgM is negative, mycoplasma IgG is equivocal, HIV negative -given LDH elevated at 538, 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; Bactrim stopped on 03/10/18 due to hyperkalemia, restarted 03/13 due to concern for possible PJP; completed final dose today GERD: -on Pantoprazole 40mg IV daily also as GI prophylaxis, switch to PO -GI performed EGD and PEG tube placement NUTRITION: -pharmacy glycemic control consult involved in serum glucose management due to hyperglycemia related to steroids -on tube feeds but only at night as he is taking PO better now Dispo: [facility] when approved, they needed updated therapy evals. Procedures: 03/13/18 Trach 03/14/18 PEG tube and EGD Current Inpatient Medications: Current Inpatient Medications Medications (Trade) Dose Ordered Sig/Nemo Route Start Time Stop Time Status Last Admin Dose Admin Gabapentin (Neurontin Cap) 100 mg BID PO 03/02/18 09:00 04/01/18 08:59 03/20/18 08:56 100 MG Paroxetine HCl (pAXil TAB) 40 mg DAILY PO 03/02/18 09:00 04/01/18 08:59 03/20/18 08:55 40 MG Pravastatin Sodium (Pravachol Tab) 40 mg HS PO 03/02/18 21:00 04/01/18 20:59 03/19/18 21:10 40 MG Levalbuterol (Xopenex 0.63 Mg/ 3 Ml Neb) 0.63 mg Q4H PRN INH 03/01/18 23:15 03/31/18 23:14 03/02/18 01:58 0.63 MG Acetaminophen (Tylenol Tab) 1,000 mg Q8H PRN PO 03/01/18 23:45 03/31/18 23:44 Glucose (Glucose 40% Gel) 15-30 GRAMS 15 GRAMS... UD PRN PO 03/02/18 12:45 04/01/18 12:44 Glucose (Glucose Chew Tab) 4-8 Tablets 4 Tabl... UD PRN PO 03/02/18 12:45 04/01/18 12:44 Dextrose (Dextrose 50% 50ML Syringe) 25-50ML 25ML FOR ... UD PRN IV 03/02/18 12:45 04/01/18 12:44 03/10/18 11:08 25 ML Glucagon (Glucagon Inj) 1 mg UD PRN IM 03/02/18 12:45 04/01/18 12:44 Carbohydrates (Carbohydrates For Hypoglycemia) 15-30 GRAMS 15 grams if BSG 54-69... UD PRN PO 03/02/18 12:45 04/01/18 12:44 Miscellaneous Information (Consult Glycemic Management Pharmacy) 1 ea UD PRN N/A 03/02/18 12:45 04/01/18 12:44 Ondansetron HCl (Zofran Inj) 4 mg Q6H PRN IV 03/02/18 23:45 04/01/18 23:44 Heparin Sodium (Porcine) (Heparin 10 Unit/ ml 5 ml Flush) 5 ml PRN PRN FLUSH 03/05/18 23:45 04/04/18 23:44 Aspirin (Aspirin Chew) 81 mg QAM PO 03/09/18 09:00 04/08/18 08:59 Future hold 03/20/18 09:02 81 MG Clonidine HCl (Catapres Tab) 0.1 mg BID PO 03/14/18 21:00 04/13/18 20:59 03/20/18 08:56 0.1 MG Propranolol HCl (Inderal Tab) 10 mg TID PO 03/15/18 14:00 04/14/18 13:59 03/20/18 14:16 10 MG Magnesium Oxide (Mag-Ox Tab) 400 mg QPM PO 03/15/18 21:00 04/14/18 20:59 03/19/18 21:11 400 MG Zinc Sulfate (Zinc Sulfate Cap) 220 mg QPM PO 03/15/18 21:00 04/14/18 20:59 03/19/18 21:12 220 MG Enoxaparin Sodium (Lovenox Inj) 40 mg DAILY@1400 SQ 03/16/18 14:00 04/15/18 13:59 03/20/18 14:16 40 MG Quetiapine Fumarate (seroQUEL TAB) 50 mg Q12H PO 03/17/18 09:00 04/16/18 08:59 03/20/18 08:56 50 MG Oxycodone HCl (Roxicodone Soln) 5 mg Q6H PRN PO 03/17/18 09:00 03/31/18 08:59 Ranitidine HCl (zANTac TAB) 150 mg BID PO 03/18/18 09:00 04/17/18 08:59 03/20/18 08:57 150 MG Prednisone (PredniSONE TAB) 60 mg Taper DAILY PO 03/18/18 09:15 04/20/19 09:14 03/20/18 08:57 60 MG Insulin Aspart (novoLOG ASPART) SLIDING SCALE G... ACHS SC 03/18/18 11:00 04/17/18 10:59 03/20/18 17:14 2 UNITS Senna (Senokot Tab) 17.2 mg BID PO 03/18/18 11:00 04/17/18 10:59 03/20/18 08:55 17.2 MG Docusate Sodium (coLACE CAP) 100 mg BID PO 03/18/18 11:00 04/17/18 10:59 03/20/18 08:56 100 MG Enteral Nutritional Formula (Peptamen Intense VHP) 1,000 ml DAILY@1900 PEG 03/18/18 19:00 04/17/18 18:59 03/19/18 19:13 1,000 ML Miscellaneous (Stop Order) 1 ea DAILY@0700 N/A 03/19/18 07:00 04/18/18 06:59 03/20/18 07:00 1 EA Insulin Human NPH (novoLIN-N NPH) 5 units QDB SC 03/20/18 08:00 04/19/18 07:59 03/20/18 09:05 5 UNITS Polyethylene (Miralax Powder Packet) 17 gm DAILY PO 03/20/18 09:00 04/19/18 08:59 03/20/18 08:55 17 GM Polyethylene (Miralax Powder Packet) 17 gm DAILY PRN PO 03/19/18 13:30 04/18/18 13:29 03/19/18 17:41 17 GM Oxycodone HCl (Roxicodone Intensol Soln) 20 mg Q12 PO 03/19/18 21:00 03/31/18 13:59 03/20/18 09:03 20 MG
[2018-03-20] MEDS: PEPTAMEN INTENSE VHP 1000ML BAG PEG SCH (19:18)
[2018-03-20] MEDS: MAGNESIUM OXIDE 400 MG TAB PO SCH (20:58)
[2018-03-20] MEDS: PRAVASTATIN SOD 40 MG TAB PO SCH (20:59)
[2018-03-20] MEDS: ZINC SULFATE 220 MG CAP PO SCH (20:59)
[2018-03-21] MEDS: INSULIN ASPART 100 UNITS/ML 3 ML PEN SC SCH ×3 (06:30→16:30)
[2018-03-21 07:07] VITALS: PULSE 88; O2SAT 97
[2018-03-21 07:12] VITALS: BP 118/77; PULSE 85; TEMP 36.8; O2SAT 98
[2018-03-21 08:01] LABS: BASO % 0.1 %; BASO ABS # 0.01 K/uL (0-0.2); EOS % 0.8 %; EOS ABS # 0.06 K/uL (0-0.5); HEMATOCRIT 34.6 % (42-52); HEMOGLOBIN 11.4 g/dL (14.0-18.0); IG# 0.06 K/uL (0.00-0.02); LYMPH % 24.8 %; LYMPH ABS # 1.98 K/uL (1.2-3.4); MEAN CELL VOLUME 94.8 fL (80-100); MEAN CORPUSCULAR HEMOGLOBIN 31.2 pg (25-34); MEAN CORPUSCULAR HGB CONC 32.9 g/dl (32-36); MEAN PLATELET VOLUME 10.2 fL (7.4-10.4); MONO % 7.8 %; MONO ABS # 0.62 K/uL (0.11-0.59); NEUT % 65.7 %; NEUT ABS # 5.25 K/uL (1.4-6.5); PLATELET COUNT 151 K/uL (130-400); RED CELL DISTRIBUTION WIDTH CV 14.9 % (11.5-14.5); RED CELL DISTRIBUTION WIDTH SD 51.5 fL (36.4-46.3); WHITE BLOOD COUNT 7.98 K/uL (4.8-10.8)
[2018-03-21 08:16] VITALS: BP 116/80; PULSE 91
[2018-03-21] MEDS: DOCUSATE SODIUM 100 MG CAP PO SCH (08:16)
[2018-03-21] MEDS: SENNA 8.6 MG TAB PO SCH (08:16)
[2018-03-21] MEDS: QUETIAPINE FUMARATE 25 MG TAB PO SCH (08:17)
[2018-03-21] MEDS: POLYETHYLENE (MIRALAX) 17 GM PACK PO SCH (08:20)
[2018-03-21] MEDS: PAROXETINE 20 MG TAB PO SCH (08:20)
[2018-03-21] MEDS: PROPRANOLOL HCL 10 MG TAB PO SCH ×2 (08:21→14:05)
[2018-03-21] MEDS: CLONIDINE HCL 0.1 MG TAB PO SCH (08:21)
[2018-03-21] MEDS: GABAPENTIN 100 MG CAP PO SCH (08:22)
[2018-03-21] MEDS: OXYCODONE HCL 20 MG/1 ML UDP PO SCH (08:22)
[2018-03-21] MEDS: RANITIDINE HCL 150 MG TAB PO SCH (08:23)
[2018-03-21] MEDS: ASPIRIN 81 MG CHEW PO SCH (08:24)
[2018-03-21] MEDS: INSULIN HUMAN NPH SC SCH (08:29)
[2018-03-21 08:47] LABS: ALBUMIN 2.6 gm/dl (3.4-5.0); ALKALINE PHOSPHATASE 71 U/L (45-117); ALT/SGPT 56 U/L (12-78); AST/SGOT 26 U/L (15-37); BLOOD UREA NITROGEN 16 mg/dl (7-18); CALCIUM 8.8 mg/dl (8.5-10.1); CARBON DIOXIDE 30 mmol/L (21-32); CREATININE 0.69 mg/dl (0.60-1.40); GLUCOSE 81 mg/dl (70-99); PHOSPHORUS 2.6 mg/dl (2.5-4.9); POTASSIUM 4.1 mmol/L (3.5-5.1); SODIUM 135 mmol/L (136-145); TOTAL PROTEIN 6.2 gm/dl (6.4-8.2)
[2018-03-21] MEDS ORDERED: OXYCODONE HCL SOLN 5 MG/5 ML UDC PO SCH ×2 (09:30→21:00)
[2018-03-21 14:04] VITALS: BP 112/73; PULSE 76
[2018-03-21] MEDS: ENOXAPARIN 40 MG/0.4 ML SYR SQ SCH (14:05)
[2018-03-21] MEDS ORDERED: ASPI1TAB83 PO (15:58)
[2018-03-21] MEDS ORDERED: PRD10 PO (15:58)
[2018-03-21] MEDS ORDERED: CLC100 PO (15:58)
[2018-03-21] MEDS ORDERED: CTP1 PO (15:58)
[2018-03-21] MEDS ORDERED: OXYC1CAP5 PO (15:58)
[2018-03-21] MEDS ORDERED: ZNT150 PO (15:58)
--- NOTE | 2018-03-21 16:33 | Discharge Summary ---
Discharge Summary Date of Service Mar 21, 2018. Discharge Summary Admission Date: Mar 01, 2018 at 22:40 Discharge Date: Mar 21, 2018 Principal Diagnosis: Acute on chronic respiratory failure s/p tracheostomy s/p PEG tube placement toxic encephalopathy-resolved chronic pain MAHAD Depression Pneumonia GERD s/p upper endoscopy while hospitalized Procedures: 03/13/18 Trach 03/14/18 PEG tube and EGD Vaccinations: None. Consultations: Thoracic surgery-Dr. Edu Jimenez Neurology-Dr. Mateo Chung Infectious disease-Dr. Cony Lam Critical care-Dr. Serafin London Pending Studies/Follow-Up: see instructions below. Medication Reconciliation New Medications: Aspirin (Aspirin) 81 Mg Tab 1 TAB PO DAILY for 30 Days, #30 TAB 3 Refills Docusate Sodium (Docusate Sodium) 100 Mg Cap 100 MG PO BID PRN for Constipation for 30 Days, #60 CAP Oxycodone Hcl (Oxycodone Hcl) 5 Mg Cap 1 CAP PO QID PRN for Pain for 7 Days, #20 CAP Prednisone (Prednisone) 10 Mg Tab 60 MG PO DAILY for 30 Days, #180 TAB Continue taper per discharge instructions. Ranitidine HCl (Ranitidine HCl) 150 Mg Tab 150 MG PO BID for 30 Days, #60 TAB Continued Medications: Amitriptyline Hcl (Amitriptyline Hcl) 50 Mg Tab 75 MG PO HS, TAB Fish Oil (Norwood-3) 1 Ea Cap 2 CAP PO DAILY Gabapentin (Neurontin) 100 Mg Cap 100 MG PO BID, CAP Ipratropium-Albuterol (Combivent Respimat) 1 Aer Aer 1 PUFFS INH QID PRN for SOB/wheezing, INH Levalbuterol (Levalbuterol) 1.25 Mg/0.5 Ml Nebu 1.25 MG INH Q4H PRN for SOB/wheezing Mometasone Furoate-Formoterol (Dulera 200/5 Mcg) 1 Aer Aer 2 PUFFS INH BID Paroxetine Hcl (Paxil) 40 Mg Tab 40 MG PO DAILY, TAB Pravastatin Sod (Pravastatin Sodium) 40 Mg Tab 1 TAB PO HS Sumatriptan Succinate (Imitrex) 50 Mg Tab 50 MG PO PRN PRN for Migraine, TAB Take 50 mg at onset of migraine BURNHAM and repeat in 2 hours if continued BURNHAM. Discontinued Medications: Aspirin (Aspirin Ec) 325 Mg Tab 325 MG PO DAILY Prednisone (Prednisone) 50 Mg Tab 50 MG PO UD, TAB Prednisone Tab (Prednisone) 10 Mg Tab 10 MG PO TID, TAB Prednisone (Prednisone) 5 Mg Tab 5 MG PO UD, TAB Ranitidine HCl (Ranitidine HCl) 300 Mg Tab 1 TAB PO BID Admission Information HPI (per Admitting provider): 52-year-old male followed by [facility] in [place] for primary care and Dr. Barker for Pulmonary Medicine. History of severe COPD, scoliosis, sleep apnea, and other problems as noted below. COPD is steroid and O2 dependent. He has been trying to taper his prednisone and recently tapered down to 15 mg daily. Usually uses oxygen 3 L/min via [place]. On CPAP at night. Presented to the ED this evening with increasing dyspnea. Worsening symptoms started 2 or 3 days ago. Initially, noted dyspnea with exertion; symptoms progressed and now dyspneic at rest. Note some chills, but no documented fever. Nonproductive cough. Chest pain with coughing. No angina or pleuritic chest pain. Has noted some dependent edema. Very thirsty and drinking large quantities of fluid daily (patient estimates ~ 5 L of fluids / 24 hours). Used nebs at home with minimal benefit. Came to the ED for evaluation. Received nebulizer treatment and IV methylprednisolone. Oxygen saturations as low as 79% on O2. BiPAP applied for ventilatory support. . Physical Exam (per Admitting): CONSTITUTIONAL vital signs as noted above adult male, dyspneic at rest EYES conjunctivae clear; lids normal pupils equal and reactive to light EARS, NOSE, MOUTH AND THROAT external inspection of ears and nose unremarkable hearing grossly intact to spoken voice oropharynx clear, no thrush NECK no masses; trachea midline thyroid normal RESPIRATORY tachypneic, using accessory muscles of respiration diffuse wheezing clear to percussion CARDIOVASCULAR regular rate and rhythm no murmur, gallop, rub appreciated + JVD carotid arteries 2/2 abdominal aorta not palpable pedal pulses intact and symmetric capillary refill toes < 2 seconds trace pretibial edema GASTROINTESTINAL normal bowel sounds, soft, nontender; no palpable masses no hepatomegaly; no splenomegaly LYMPHATIC no cervical adenopathy MUSCULOSKELETAL no cyanosis at time of my assessment no calf tenderness motor strength extremities grossly intact SKIN no rash warm and dry NEUROLOGIC PERRL, EOMI, no facial palsy, no dysarthria, tongue midline patellar DTR's 10/28 PSYCHIATRIC oriented to person, place, time mood and affect appropriate . Hospital Course ACUTE ON CHRONIC RESPIRATORY FAILURE: Combined Hypoxemic and Hypercapneic -secondary to hypersensitivity pneumonitis/ARDS, and possible pneumonia -was intubated on 03/03/18 -failure to wean off ventilator, now s/p tracheostomy 03/13/18 -methylprednisone changed to prednisone taper, to decrease by 10mg every 7 days until dose gets to 10mg which is continued indefinitely -on xopenex -CXR 03/13/18 AM: Bilateral pulmonary airspace opacities with slight interval improvement of left lung aeration -CXR 03/14/18: bilateral interstitial pulmonary opacities right greater than left. -Pulmonary service and Director Of Partnerships consulted and management appreciated -patient also underwent PEG tube placement which is functional -TTE report: EF 65-70%, No segmental left ventricular wall motion abnormalities * Grade I diastolic dysfunction. * Poorly visualized RV. * No significant valvular pathology. 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 No evidence of intracranial mass 2. No evidence of acute or subacute infarction 3. Foci of increased T2 signal within the mastoids likely inflammatory, otherwise normal MRI the brain for age -EEG: diagnosis is essentially normal, quite a bit of muscle movement artifacts , but revealing no evidence for potentially epileptogenic activity or ongoing subclinical seizure activity. -Neurology consulted, do not suspect that there is a primary underlying seizure issue, but rather a toxic metabolic encephalopathy related to his pulmonary disease. -patient's reports that even at home at baseline, patient moves his extremities (possibly involuntary?) without purpose during his sleep and this has been going on for years but was not assessed for this issue before -on seroquel -remains on propranolol and clonidine CHRONIC PAIN: -continue Gabapentin, can titrate up -pain control as above DEPRESSION: -continue Paxil MAHAD: -improved -had hyperkalemia, was responsive to medical management -Vascular and Nephrology were consulted -Bactrim had been discontinued but was restarted -Lasix changed to Diamox as fluid totals are no longer net positive and because there was metabolic alkalosis; now off both PNEUMONIA: possibly PJP but unconfirmed -CXR with bilateral airspace opacities -was previously on vancomycin and azithromycin -Blood Cultures negative -karla albicans in sputum from 03/04/18, on caspofungin treatment; continued per ICU because of a lot of growth as per their discussion with micro -BAL cultures negative, last dose of Zosyn given on 03/08/18 -urinary legionella negative, mycoplasma IgM is negative, mycoplasma IgG is equivocal, HIV negative -given LDH elevated at 538, 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; Bactrim stopped on 03/10/18 due to hyperkalemia, restarted 03/13 due to concern for possible PJP; completed final dose in hospital GERD: -on Pantoprazole 40mg IV daily also as GI prophylaxis, switch to PO -GI performed EGD and PEG tube placement -EGD revealed: Impression: - Normal esophagus. - Normal stomach. - Normal examined duodenum. - An externally removable PEG placement was successfully completed. . Recommendation: - Please follow the post-PEG recommendations including: Nutrition consult for formula and volume, antibiotic ointment to site, change dressing once per day for 1 week, may use PEG today for meds and water and may use PEG tomorrow for feedings He was using PEG tube feeds and eventually began to tolerate solid foods by mouth. Per nutrition it would be important to back off on the tube feeds as the caloric intake improved, which should be monitored and adjusted by the lens block gauger at the receiving facility. This was conveyed on the discharge instructions to include the need for repeat bloodwork while on tube feeds, specific instructions on the steroid taper to be followed, and all important follow-ups for the next several weeks. He was also sent out with one bag of tube feeds that would be used that night so that staff would have adequate time for assessment without interruption in his nutrition. Total time spent on discharge = This includes examination of the patient, discharge planning, medication reconciliation, and communication with other providers. Discharge Instructions [facility] [address] [place] [address] Discharge Medical Patient Name: Anuel Winchester Unit Number: [id number] Date of : 1965 Patient Status: Admitted Inpatient Attending Doctor: Kathrin Norman DO DI: Medical v5 Discharge Instructions Date of Service Mar 21, 2018. Admission Reason for Admission: Acute And Chronic Respiratory Failure W Hypoxia Discharge Discharge Diagnosis / Problem: Acute respiratory failure 2/2 ARDS, s/p trach and PEG placement Discharge Goals Goal(s): Improve nutritional status, Prevent Disease Progression Activity Recommendations Activity Limitations: per Instructions/Follow-up section . Instructions / Follow-Up Instructions / Follow-Up Please take all medications per discharge instruction list. Supplemental oxygen is to be weaned as tolerated at the rehab center. The staff will take care of this. You will need repeat labwork including a BASIC METABOLIC PANEL, PHOSPHORUS, and MAGNESIUM level to be drawn Tuesday, 03/24 and checked every 7 days for the time being until demonstrated stability. Electrolytes should be replaced at rehabilitation facility as needed. Your primary care physician should be copied on all results. Please continue to follow prednisone taper as follows: 60mg daily x 5 days 50mg daily x 7 days 40mg daily x 7 days 30mg daily x 7 days 20mg daily x 7 days 10mg daily indefinitely It is recommended that you followup with your primary care physician for follow- up of this hospitalization within one week of discharge from the rehabilitation facility. You will need to follow-up with Dr. Edu Jimenez (Thoracic Surgery) in one week for trach collar removal and removal of stitches. His office will be contacting you later this week regarding that appointment time. Please contact Dr. Di Hubbard ([facility]) to schedule a follow-up in his office regarding when to remove the PEG tube. Regarding PEG tube feedings, it is recommended that this be continued overnight for 12 hours at a tapered dose based on increased oral intake of food. A suggestion would be 60mls/hr x 12 hours decreasing by 10 mls/hr every couple of nights. For this, I recommend a lens block gauger be consulted while you are at [facility] so they can monitor calorie counts and modify your tube feedings as appropriate. You are currently on Peptamen 60mls/hr x 12 hours overnight only. It was a pleasure taking care of you! Call if you have any questions or problems. You can reach a [facility] hospitalist on duty at [facility] 24 hours a day by calling [phone]. Take care of yourself. DO [facility] Hospital[facility] Current Hospital Diet Patient's current hospital diet: AHA Diet (Heart Healthy) Discharge Diet Recommended Diet: AHA Diet (Heart Healthy) Procedures Procedures Performed: Intubation/removal Percutaneous tracheostomy with Blue Rhino kit-03/13 fiberoptic bronchoscopy-03/03 and 03/13 Arterial line placement/removal Central Line IJ placement/removal Pending Studies Studies pending at discharge: no Laboratory Results Hemoglobin A1c Test 03/08/18 04:32 Range/Units Estimated Average Glucose 123 mg/dl Hemoglobin A1c 5.9 H 4.5-5.6 % Medical Emergencies . Who to Call and When: Medical Emergencies: If at any time you feel your situation is an emergency, please call 911 immediately. . Non-Emergent Contact Non-Emergency issues call your: Primary Care Provider . . "Provider Documentation" section prepared by Kathrin Norman. . [place] Drug Monitoring Program Search Results: patient reviewed within database, no issues identified Additional [facility] [place]
[2018-03-21 16:52] VITALS: BP 112/73; PULSE 76; TEMP 36.8; O2SAT 98
[2018-03-21] MEDS ORDERED: PEPTAMEN INTENSE VHP 1000ML BAG PEG SCH (17:00)
== END 2018-03-21 17:35 | DRG 4 ==
LOC: C.EDB 20:41 → EEVIPCON 22:40 → C.MSICU 22:40 → ENRESERV 22:47 → C.MS2W 03-17 12:21
PROVIDERS: ADMIT Hospitalist; ATTEND Hospitalist
PROC: 05HM33Z Insertion of Infusion Device into Right Internal Jugular Vein, Percutaneous Approach (ICD-10-PCS; 2018-03-03)
PROC: 5A1955Z Respiratory Ventilation, Greater than 96 Consecutive Hours (ICD-10-PCS; 2018-03-03)
PROC: 0B113F4 Bypass Trachea to Cutaneous with Tracheostomy Device, Percutaneous Approach (ICD-10-PCS; principal; 2018-03-13)
PROC: 0BH13EZ Insertion of Endotracheal Airway into Trachea, Percutaneous Approach (ICD-10-PCS; 2018-03-13)
PROC: 0B9H8ZX Drainage of Lung Lingula, Via Natural or Artificial Opening Endoscopic, Diagnostic (ICD-10-PCS; 2018-03-13)
PROC: 0DH58UZ Insertion of Feeding Device into Esophagus, Via Natural or Artificial Opening Endoscopic (ICD-10-PCS; 2018-03-14)
DX: J96.21 Acute and chronic respiratory failure with hypoxia (principal); G92 Toxic encephalopathy; J18.9 Pneumonia, unspecified organism; N17.9 Acute kidney failure, unspecified; J67.9 Hypersensitivity pneumonitis due to unspecified organic dust; J81.1 Chronic pulmonary edema; J44.9 Chronic obstructive pulmonary disease, unspecified; J96.22 Acute and chronic respiratory failure with hypercapnia; M41.9 Scoliosis, unspecified; G47.30 Sleep apnea, unspecified; Z79.52 Long term (current) use of systemic steroids; Z99.81 Dependence on supplemental oxygen; F17.200 Nicotine dependence, unspecified, uncomplicated; Z79.82 Long term (current) use of aspirin; K21.9 Gastro-esophageal reflux disease without esophagitis; G89.29 Other chronic pain; F41.9 Anxiety disorder, unspecified

== ENCOUNTER → 2018-04-19 | Outpatient (CLI) | payer OTHER ==
[~2018-04-19] MED LIST changes: +ASPI1TAB83 PO; -ASPI81TA28 PO; +CLC100 PO; -LEVO-459 PO; +PRD10 PO; -PRED10TA PO; -PRED50TA PO; -ZNT/300 PO; +ZNT150 PO
--- NOTE | 2018-04-19 12:02 | DIAGNOSTIC IMAGING REPORT ---
CHEST 2 VIEWS ROUTINE CLINICAL HISTORY: SOB dyspnea COMPARISON STUDY: 03/14/2018 FINDINGS: Deformity of the thorax unchanged in the prior exam. Mild cardia megaly also unchanged. Small hiatal hernia stable. Interstitial changes in the right and to a lesser extent left base possibly inflammatory. Upper lungs are clear. IMPRESSION: Moderate cardiomegaly. Mild interstitial infiltrative change right to lesser extent left base. The above report was generated using voice recognition software. It may contain grammatical, syntax or spelling errors. Electronically signed by: Sergey Levine M.D. 04/19/2018 12:01 PM Dictated Date/Time: 04/19/2018 12:00 PM
== END | disposition home or self-care (01) ==
LOC: C.RAD 10:07
PROVIDERS: ATTEND Family Medicine
DX: J81.0 Acute pulmonary edema (principal)

== ENCOUNTER 2023-12-28 10:17 | Inpatient (IN) ==
--- NOTE | 2023-12-28 11:27 | XRay Report ---
LEFT FOOT 3 VIEWS CLINICAL HISTORY: Left foot pain and swelling. FINDINGS: 3 views of the left foot are compared to study dated 12/28/2021. The skeletal structures are osteopenic. No acute fracture is seen. Mild osteoarthritic change is noted throughout the foot. Hamme rtoe deformities are suggested in the fourth and fifth toes. There is dorsal and lateral soft tissue edema. A high arch is noted. There is a small dorsal heel spur. IMPRESSION: Soft tissue swelling with no acute bony abnormality identified. Electronically signed by: Nate Haynes M.D. 12/28/2023 11:26 AM
--- NOTE | 2023-12-28 12:05 | Emergency Department Note ---
History of Present Illness General Chief complaint: Foot Injury/Pain Stated complaint: PAIN IN L FOOT - RADIATING UP LEG Time Seen by Provider: 12/28/23 11:32 History of Present Illness Maximum Pain Intensity: 8 NAME: LELO CONCEPCION AGE: 58 SEX: M : 1965 ARRIVES VIA: Walk-In INFORMANT: Patient ED PROVIDER(S): YANELY Loera, Lexis Wilks DO The patient is a pleasant 58-year-old male who arrives to the emergency department with his for evaluation of left foot swelling and pain. He reports he does have a history of diabetes, he is currently on 2 L nasal cannula for CHF and COPD. He reports he has been being treated with a walking boot for previous foot injuries, as well as hammertoes. He noticed he put his boot on and the pain was so severe he was unable to stand. He reports the swelling worsened over the last few days, with the pain beginning between the fourth and fifth toe. He denies any open area of the foot, or known injury. He denies proximal limb pain, fever, chest pain, or worsening shortness of breath. Home Medications Medication Instructions Recorded Confirmed Type aspirin 81 mg tablet,delayed 81 mg PO QAM 08/07/18 12/28/23 History release omega 6-rii-wbh-fish oil 1,000 mg 2,000 mg PO QAM 08/07/18 12/28/23 History (120 mg-180 mg) capsule (Fish Oil) sumatriptan succinate 50 mg tablet 50 mg PO DIRECTED PRN Migraine 08/07/18 12/28/23 History (Imitrex) Headache CPAP Supplies #1 ea 06/01/19 10/21/20 Rx Oxygen Home E0424 #5 ea 08/03/19 10/21/20 Rx CPAP Supplies #1 ea 10/23/19 10/21/20 Rx amitriptyline 50 mg tablet 75 mg PO HS 11/04/19 12/28/23 History cyclobenzaprine 5 mg tablet 2.5 mg PO HS PRN Muscle Spasm 11/04/19 12/28/23 History famotidine 20 mg tablet 20 mg PO QAM 11/04/19 12/28/23 History gabapentin 100 mg capsule See Rx Instructions .Route .COMPLEX 11/04/19 12/28/23 History metoprolol succinate 25 mg 25 mg PO BID 11/04/19 12/28/23 History tablet,extended release 24 hr paroxetine HCl 40 mg tablet 40 mg PO QAM 11/04/19 12/28/23 History pravastatin 40 mg tablet 40 mg PO HS 11/04/19 12/28/23 History primidone 50 mg tablet 50 mg PO BID 11/04/19 12/28/23 History varenicline 1 mg tablet (Chantix 1 mg PO BID 11/04/19 12/28/23 History Continuing Month Box) benzonatate 200 mg capsule 200 mg PO TID PRN cough #30 caps 11/05/19 12/28/23 Rx levalbuterol HCl 1.25 mg/3 mL 1.25 mg (3 mL) inhalation Q4H #180 11/06/19 12/28/23 Rx solution for nebulization mL CPAP Machine #1 ea 04/22/20 10/21/20 Rx ipratropium 20 mcg-albuterol 100 1 puff inhalation QID PRN 05/19/20 12/28/23 Rx mcg/actuation mist for inhalation Shortness Of Breath #4 grams (Combivent Respimat) mometasone-formoterol HFA 200 2 puff inhalation BID #13 grams 02/20/21 12/28/23 Rx mcg-5 mcg/actuation aerosol inhaler (Dulera) albuterol sulfate 90 mcg/actuation 2 puff inhalation Q4H PRN 12/28/23 12/28/23 History aerosol inhaler Shortness Of Breath Or Wheezing furosemide 20 mg tablet 20 mg PO DAILY 12/28/23 12/28/23 History montelukast 10 mg tablet 10 mg PO DAILY 12/28/23 12/28/23 History potassium chloride 10 mEq 10 meq PO QAM 12/28/23 12/28/23 History tablet,extended release(part/cryst) spironolactone 25 mg tablet 25 mg PO QAM 12/28/23 12/28/23 History umeclidinium 62.5 mcg/actuation 1 inh inhalation QAM 12/28/23 12/28/23 History blister powder for inhalation (Incruse Ellipta) Allergies Allergy/AdvReac Type Severity Reaction Status Date / Time levetiracetam [From [facility]] Allergy tongue Verified 12/28/23 16:34 edema morphine AdvReac Unknown Vomiting Verified 12/28/23 15:58 Past Med/Surg History Medical History (Updated 12/28/23 @ 22:38 by YANELY Blevins) Interstitial lung disease Abnormal diffusion capacity determined by pulmonary function test Restrictive lung disease Pneumonitis Hx of renal calculi Acute and chronic respiratory failure with hypoxia Hypoxia Migraine GRACIE (obstructive sleep apnea) GERD (gastroesophageal reflux disease) Pancreatitis Depression Dyslipidemia Surgical History S/P nasal surgery History of back surgery H/O colonoscopy S/P tonsillectomy Family History Other Cancer Diabetes Heart disease Lung disease Social History Smoking Status: Former smoker Second Hand Exposure: No; Do You Dip or Chew Tobacco: No; Tobacco Cessation Education Requested by Patient: No Hx Alcohol Use: Yes Alcohol type: beer Hx Substance Use: No Preferred Language: Irish Chief Service Observer Required: No Beliefs That Will Affect Care: None marital status: Current Living Situation: Spouse current occupational status: unemployed Other Information That Helps Us Care for You: No Feels Safe at Home: Yes Safety Concerns: Feels Safe At This Time Assistive Devices: CPAP, Denture - Upper, Denture - Lower, Glasses and Oxygen - Continuous Physical Exam Vital Signs Vital Signs - 24 hr 12/28/23 10:18 12/28/23 12:56 Temperature 36.6 C Temperature Source Temporal Artery Scan Pulse Rate 104 H Pulse Rate [Finger] 84 Respiratory Rate 20 16 Respiratory Effort / Characteristics Non-Labored Respiratory Depth Normal Blood Pressure 134/87 Blood Pressure [Right Arm] 109/82 Blood Pressure Mean 102 Blood Pressure Mean [Right Arm] 91 Pulse Oximetry 95 100 Oxygen Delivery Method Nasal Cannula Nasal Cannula Oxygen Flow Rate 2 2 Sepsis Recent Fever Within 48 Hours No Sepsis New/Unexplained Change in Mental Status No Sepsis Action Taken by Nursing No Action Required VITALS: Vitals are noted on the nurse's note and reviewed by myself. Vital signs stable. GENERAL: 58-year-old male, in no acute distress, nondiaphoretic, well-developed well-nourished. SKIN: The skin was without rashes, erythema, edema, or bruising. HEAD: Normocephalic atraumatic. HEART: Regular rate and rhythm without murmurs gallops or rubs. LUNGS: Diminished in the bases, no rhonchi, or rales. ABDOMEN: Positive bowel sounds x 4. Soft, nontender, without masses or organomegaly. Akins sign negative. No guarding or rebound tenderness. MUSCULOSKELETAL: Tenderness to palpation dorsum and plantar aspect of the foot, with significant erythema and edema extending to the toes. Limited range of motion of the ankle due to pain, pedal pulse present. NEURO: Patient was alert and oriented to person place and time. No focal neurological deficits. Course Administered Medications Acetaminophen (Acetaminophen 325 Mg Tab) 650 mg PO Q4H PRN PRN Reason: pain/fever Stop: 01/27/24 18:18 Last Admin: 12/28/23 21:14 Dose: 650 mg Documented By: CAYLA Amitriptyline HCl (Amitriptyline Hcl 25 Mg Tab) 75 mg PO HS ROBERTA Stop: 01/27/24 20:59 Last Admin: 12/28/23 21:15 Dose: 75 mg Documented By: CAYLA Cyclobenzaprine HCl (Cyclobenzaprine Hcl 5 Mg Tab) 2.5 mg PO HS PRN PRN Reason: Muscle Spasm Stop: 01/27/24 18:18 Last Admin: 12/28/23 21:16 Dose: 2.5 mg Documented By: CAYLA Doxycycline Hyclate (Doxycycline Hyclate 100 Mg Cap) 100 mg PO BID ROBERTA Stop: 01/04/24 20:59 Last Admin: 12/28/23 21:15 Dose: 100 mg Documented By: CAYLA Enoxaparin Sodium (Enoxaparin Inj 40 Mg/0.4 Ml Syr) 40 mg SQ Q24H ROBERTA Stop: 01/27/24 18:59 Last Admin: 12/28/23 19:35 Dose: 40 mg Documented By: CAYLA Gabapentin (Gabapentin 400 Mg Cap) 400 mg PO HS ROBERTA Stop: 01/27/24 20:59 Last Admin: 12/28/23 21:15 Dose: 400 mg Documented By: CAYLA Ceftriaxone Sodium 2,000 mg/ (Dextrose) 50 mls @ 100 mls/hr IV Q24H ROBERTA; Protocol Stop: 01/04/24 18:59 Last Infusion: 12/28/23 20:51 Dose: Infused Documented By: Admin: 12/28/23 19:34 Dose: 100 mls/hr Documented By: CAYLA Metoprolol Succinate (Metoprolol Succ 25mg Ext Rel Tab) 25 mg PO BID ROBERTA Stop: 01/27/24 20:59 Last Admin: 12/28/23 21:15 Dose: 25 mg Documented By: CAYLA Pravastatin Sodium (Pravastatin Sod 40 Mg Tab) 40 mg PO HS ROBERTA Stop: 01/27/24 20:59 Last Admin: 12/28/23 21:15 Dose: 40 mg Documented By: CAYLA Primidone (Primidone 50 Mg Tab) 50 mg PO BID ROBERTA Stop: 01/27/24 20:59 Last Admin: 12/28/23 21:15 Dose: 50 mg Documented By: CAYLA Discontinued Medications Piperacillin Sod/Tazobactam Sod (Zosyn) 4.5 gm in 100 mls @ 200 mls/hr IV NOW ONE Stop: 12/28/23 12:42 Last Infusion: 12/28/23 16:17 Dose: Infused Documented By: Admin: 12/28/23 12:52 Dose: 200 mls/hr Documented By: LONNIE Oxycodone HCl (Oxycodone Hcl Ir 5 Mg Tab (Immediate Release)) 5 mg PO NOW STA Stop: 12/28/23 12:06 Last Admin: 12/28/23 12:51 Dose: 5 mg Documented By: LONNIE Medical Decision Making Differential Diagnosis Foreign body, fracture, dislocation, joint compromise, infection, soft tissue injury, tendon injury, vascular compromise, compartment syndrome, as well as other pathologies. Medical Records Attestation: I reviewed the patient's medical records. Home Medications Current Medication List: was personally reviewed by me Laboratory Data Attestation: I reviewed the patient's lab results. Slight leukocytosis 11.6, stable hemoglobin hematocrit, no electrolyte abnormalities, elevated ESR at 34, elevated CRP at 2.95. Negative lactate, negative procalcitonin. 12/28/23 12:20 12/28/23 12:20 Lab Results 12/28/23 Range/Units 12:20 WBC 11.60 H (4.8-10.8) K/ul RBC 4.44 L (4.70-6.10) M/uL Hgb 13.6 L (14.0-18.0) g/dl Hct 40.0 L (42.0-52.0) % MCV 90.1 (80.0-100.0) fL MCH 30.6 (25.0-34.0) pg MCHC 34.0 (32.0-36.0) g/dL RDW Std Deviation 41.1 (36.4-46.3) fL RDW Coeff of [place] 12.4 (11.5-14.5) % Plt Count 209 (130-400) K/uL MPV 10.5 (9.4-12.4) fL Immature Gran % (Auto) 0.6 % Neut % (Auto) 51.8 % Lymph % (Auto) 32.7 % [place] % (Auto) 12.1 % Eos % (Auto) 2.4 % Baso % (Auto) 0.4 % Neut # (Auto) 6.01 (1.40-6.50) K/uL Lymph # (Auto) 3.79 H (1.20-3.40) K/uL [place] # (Auto) 1.40 H (0.11-0.59) K/uL Eos # (Auto) 0.28 (0.00-0.50) K/uL Baso # (Auto) 0.05 (0.00-0.20) K/uL Immature Gran # (Auto) 0.07 (0.01-0.20) K/uL ESR 34 H (0-20) mm/hr Sodium 135 L (136-145) mmol/L Potassium 4.4 (3.5-5.1) mmol/L Chloride 98 (98-107) mmol/L Carbon Dioxide 33 H (21-32) mmol/L Anion Gap 4 (3-11) BUN 14 (6-23) mg/dl Creatinine 1.16 (0.6-1.4) mg/dl Est Cr Clr Drug Dosing Not Reportable Est GFR ( Amer) 79.4 ml/min Est GFR (Non-Af Amer) 68.5 ml/min BUN/Creatinine Ratio 12.1 (10-20) Glucose 98 (70-99(Fasting)) mg/dl Lactate 0.9 (0.4-2.0) mmol/L Calcium 9.2 (8.6-10.3) mg/dl Total Bilirubin 0.7 (0.2-1.0) mg/dl AST 26 (13-39) U/L ALT 26 (7-52) U/L Alkaline Phosphatase 130 H (34-104) U/L C-Reactive Protein 2.95 H (0-0.5) mg/dl Total Protein 8.3 (6.0-8.3) gm/dl Albumin 4.1 (3.4-5.0) gm/dl Globulin 4.2 H (2.5-4.0) gm/dl Albumin/Globulin Ratio 1.0 (0.9-2) Procalcitonin 0.05 (0-0.5) ng/ml Imaging Data Attestation: I personally reviewed and interpreted this imaging study as follows: My Impression: Initial x-ray interpretation per myself shows significant soft tissue edema, no fracture present. Will await formal radiology report. Radiologist's Impression: Foot X-Ray 12/28/23 10:46 LEFT FOOT 3 VIEWS CLINICAL HISTORY: Left foot pain and swelling. FINDINGS: 3 views of the left foot are compared to study dated 12/28/2021. The skeletal structures are osteopenic. No acute fracture is seen. Mild osteoarthritic change is noted throughout the foot. Hammertoe deformities are suggested in the fourth and fifth toes. There is dorsal and lateral soft tissue edema. A high arch is noted. There is a small dorsal heel spur. IMPRESSION: Soft tissue swelling with no acute bony abnormality identified. Electronically signed by: Nate Haynes M.D. 12/28/2023 11:26 AM Venous Doppler Study 12/28/23 12:05 ULTRASOUND LEFT LOWER EXTREMITY VENOUS CLINICAL HISTORY: Left foot pain and swelling. COMPARISON STUDY: Left lower extremity venous ultrasound dated 12/28/2021. TECHNIQUE: Real-time, grayscale, and color Doppler sonography of the deep veins of the left lower extremity was performed from the inguinal crease to the calf. Compression and augmentation were utilized. FINDINGS: There is no sonographic evidence of deep venous thrombosis identified in the left lower extremity. The common femoral, superficial femoral, and popliteal veins are patent and normally compressible. The greater saphenous vein and the profunda femoris vein at the junction with the common femoral vein are clear. The visualized calf veins are patent. IMPRESSION: There is no sonographic evidence of deep venous thrombosis identified in the left lower extremity. ACT 112: Negative or not required by law. Electronically signed by: Nate Haynes M.D. 12/28/2023 2:55 PM Blood Pressure Blood Pressure Findings: Normal blood pressure MDM Narrative The patient is a 58-year-old male who arrives to the emergency department for the above-stated complaint. Initial workup was performed in triage including a x-ray of the left foot which showed soft tissue edema, however no signs of osteomyelitis. Upon my examination the patient has what appears to be a significant cellulitis to the middle to distal part of the left foot. The patient has limited range of motion due to pain and swelling. He was provided with an initial dose of oral oxycodone for pain. A saline lock was placed, CBC, CMP, ESR, CRP, procalcitonin, lactate and blood cultures were obtained. CBC showed slight leukocytosis 11.6, stable hemoglobin hematocrit. CMP shows no electrolyte abnormalities, elevated ESR at 34, elevated CRP at 2.95. The lactate and procalcitonin were negative. Ultrasound imaging of the left lower extremity was obtained which ruled out DVT. I did provide the patient with an initial dose of Zosyn in the emergency department and contacted case management for admission, as he will need further treatment with IV antibiotics for I discussed the plan of care with the patient and his , who were amenable to treatment. Report was provided to the [facility] hospitalist group, they will take over the plan of care for the patient at this time. The patient's case was discussed with Dr. Wilks, who agreed with my evaluation and treatment plan. Impression & Plan Cellulitis Discharge Plan Visit Data Chief Complaint: Foot Injury/Pain Stated Complaint: PAIN IN L FOOT - RADIATING UP LEG ED Provider: Lexis Wilks ED Midlevel Provider: Savanna Garcia Discharge Problem: Cellulitis Patient Disposition: Admitted As Inpatient Discharge Instructions Interventions: ED Discharge Assessment Last Done: 12/28/23 17:38 Discharge Problem: Cellulitis Qualifiers: Site of cellulitis: extremity Site of cellulitis of extremity: lower extremity Laterality: left Qualified Code(s): L03.116 - Cellulitis of left lower limb
[2023-12-28] MEDS: oxyCODONE HCL IR 5 MG TAB (IMMEDIATE RELEASE) PO STA (12:51)
[2023-12-28] MEDS: PIPERACILLIN/TAZOBACTAM 4.5 GM/100 ML BAG IV ONE (12:52)
[2023-12-28 13:02] LABS: Basophils # (auto) 0.05 K/uL (0.00-0.20); Basophils % (auto) 0.4 %; Eosinophils # (auto) 0.28 K/uL (0.00-0.50); Eosinophils % (auto) 2.4 %; Hemoglobin 13.6 g/dl (14.0-18.0); Immature Granulocytes # (auto) 0.07 K/uL (0.01-0.20); Immature Granulocytes % (auto) 0.6 %; Lymphocytes # (auto) 3.79 K/uL (1.20-3.40); Lymphocytes % (auto) 32.7 %; Mean Corpuscular Hemoglobin 30.6 pg (25.0-34.0); Mean Corpuscular Volume 90.1 fL (80.0-100.0); Mean Platelet Volume 10.5 fL (9.4-12.4); Monocytes % (auto) 12.1 %; Neutrophils # (auto) 6.01 K/uL (1.40-6.50); Neutrophils % (auto) 51.8 %; Platelet Count 209 K/uL (130-400); RDW Coefficient of Variation 12.4 % (11.5-14.5); RDW Standard Deviation 41.1 fL (36.4-46.3); Red Blood Count 4.44 M/uL (4.70-6.10)
[2023-12-28 13:22] LABS: Alanine Aminotransferase 26 U/L (7-52); Albumin Level 4.1 gm/dl (3.4-5.0); Alkaline Phosphatase 130 U/L (34-104); Anion Gap 4 (3-11); Aspartate Aminotransferase 26 U/L (13-39); BUN Creatinine Ratio 12.1 (10-20); Bilirubin,Total 0.7 mg/dl (0.2-1.0); Blood Urea Nitrogen 14 mg/dl (6-23); C Reactive Protein 2.95 mg/dl (0-0.5); Calcium 9.2 mg/dl (8.6-10.3); Carbon Dioxide 33 mmol/L (21-32); Chloride 98 mmol/L (98-107); Est GFR (African American) 79.4 ml/min; Est GFR (Non-African American) 68.5 ml/min; Globulin 4.2 gm/dl (2.5-4.0); Glucose 98 mg/dl (70-99(Fasting)); Potassium 4.4 mmol/L (3.5-5.1); Sodium 135 mmol/L (136-145); Total Protein 8.3 gm/dl (6.0-8.3)
--- NOTE | 2023-12-28 14:56 | Ultrasound Report ---
ULTRASOUND LEFT LOWER EXTREMITY VENOUS CLINICAL HISTORY: Left foot pain and swelling. COMPARISON STUDY: Left lower extremity venous ultrasound dated 12/28/2021. TECHNIQUE: Real-time, grayscale, and color Doppler sonography of the deep veins of the left lower ext remity was performed from the inguinal crease to the calf. Compression and augmentation were utilized . FINDINGS: There is no sonographic evidence of deep venous thrombosis identified in the left lower ext remity. The common femoral, superficial femoral, and popliteal veins are patent and normally compress ible. The greater saphenous vein and the profunda femoris vein at the junction with the common femora l vein are clear. The visualized calf veins are patent. IMPRESSION: There is no sonographic evidence of deep venous thrombosis identified in the left lower e xtremity. ACT 112: Negative or not required by law. Electronically signed by: Nate Haynes M.D. 12/28/2023 2:55 PM
--- NOTE | 2023-12-28 15:58 | History & Physical Report ---
Date of Service December 28, 2023 History of Present Illness Chief Complaint: Foot pain and swelling Primary Care Provider: Jose Armando Veloz MD Patient is 58 year old male with PMH Started 5 days ago started with left 4th toe pain, redness, and swelling then progressed to sole of foot and entire foot. States has chronic numbness to left foot. uses boot. Follows with podiatry. Denies fever/chills Allergies Allergy/AdvReac Type Severity Reaction Status Date / Time morphine AdvReac Unknown Vomiting Verified 10/21/20 13:59 Home Medications Medication Instructions Recorded Confirmed Type aspirin 81 mg tablet,delayed 81 mg PO DAILY 08/07/18 10/21/20 History release omega 7-nri-cki-fish oil 1,000 mg 2,000 mg PO DAILY 08/07/18 10/21/20 History (120 mg-180 mg) capsule (Fish Oil) sumatriptan succinate 50 mg tablet 50 mg PO DIRECTED PRN Migraine 08/07/18 10/21/20 History (Imitrex) Headache CPAP Supplies #1 ea 06/01/19 10/21/20 Rx Oxygen Home E0424 #5 ea 08/03/19 10/21/20 Rx CPAP Supplies #1 ea 10/23/19 10/21/20 Rx amitriptyline 50 mg tablet 75 mg PO HS 11/04/19 10/21/20 History cyclobenzaprine 5 mg tablet 5 mg PO BID 11/04/19 10/21/20 History famotidine 20 mg tablet 20 mg PO QAM 11/04/19 10/21/20 History furosemide 40 mg tablet 40 mg PO QAM 11/04/19 10/21/20 History gabapentin 100 mg capsule 100 mg PO TID 11/04/19 10/21/20 History metformin 500 mg tablet 500 mg PO BID 11/04/19 10/21/20 History metoprolol succinate 25 mg 25 mg PO DAILY 11/04/19 10/21/20 History tablet,extended release 24 hr paroxetine HCl 40 mg tablet 40 mg PO DAILY 11/04/19 10/21/20 History pravastatin 40 mg tablet 40 mg PO HS 11/04/19 10/21/20 History primidone 50 mg tablet 50 mg PO BID 11/04/19 10/21/20 History varenicline 1 mg tablet (Chantix 1 mg PO BID 11/04/19 10/21/20 History Continuing Month Box) benzonatate 200 mg capsule 200 mg PO TID PRN cough #30 caps 11/05/19 10/21/20 Rx levalbuterol HCl 1.25 mg/3 mL 1.25 mg (3 mL) inhalation Q4H #180 11/06/19 10/21/20 Rx solution for nebulization mL CPAP Machine #1 ea 04/22/20 10/21/20 Rx ipratropium 20 mcg-albuterol 100 1 puff inhalation QID PRN 05/19/20 10/21/20 Rx mcg/actuation mist for inhalation Shortness Of Breath #4 grams (Combivent Respimat) prednisone 1 mg tablet 2 mg (2 x 1 mg) PO Q OTHER DAY 06/13/20 10/21/20 Rx interstitial lung disease #90 tabs umeclidinium 62.5 mcg/actuation 1 inh inhalation DAILY #90 ea 01/09/21 Rx blister powder for inhalation (Incruse Ellipta) mometasone-formoterol HFA 200 2 puff inhalation BID #13 grams 02/20/21 Rx mcg-5 mcg/actuation aerosol inhaler (Dulera) Past Med/Surg History Medical History Interstitial lung disease Abnormal diffusion capacity determined by pulmonary function test Restrictive lung disease Pneumonitis Hx of renal calculi Acute and chronic respiratory failure with hypoxia Hypoxia Migraine GRACIE (obstructive sleep apnea) GERD (gastroesophageal reflux disease) Pancreatitis Depression Dyslipidemia Surgical History S/P nasal surgery History of back surgery H/O colonoscopy S/P tonsillectomy Family History Other Cancer Diabetes Heart disease Lung disease Social History Smoking Status: Never smoker Preferred Language: Finnish marital status: Current Living Situation: Family current occupational status: unemployed Feels Safe at Home: Yes Results & Data Results & Data Vital Signs (Past 12 Hours) Vital Signs Temp Pulse Pulse Resp BP BP Pulse Ox 12/28/23 12:56 84 16 109/82 100 04/03/24 10:18 36.6 C 104 H 20 134/87 95 O2 Del Method O2 Flow Rate 12/28/23 12:56 Nasal Cannula 2 12/28/23 10:18 Nasal Cannula 2
--- NOTE | 2023-12-28 16:05 | History & Physical Report ---
Date of Service December 28, 2023 Assessment & Plan (1) Cellulitis: Plan: Cellulitis of left foot Patient presents with gradual swelling and redness of left foot for the last 3 days. Venous duplex negative for DVT Foot x-ray did not show any acute bony abnormality. Soft tissue swelling present ESR mildly elevated to 32 CRP of 2.95 Started on ceftriaxone and doxycycline. Follow-up on blood culture Will likely need 7 to 10 days of antibiotic depending on clinical improvement. Chronic conditions; COPDon 2 L of oxygen at baseline, continue on home inhalers Hyperlipidemiacontinue on pravastatin Hypertensioncontinue on metoprolol Mood disordercontinue on amitriptyline, paroxetine GRACIE- continue on CPAP Chronic right heart failurecontinue on Lasix, spironolactone, metoprolol GERDcontinue on Pepcid Full code DVT prophylaxisLovenox Time spent evaluating patient, direct bedside care, chart review, placing orders, interpretation of diagnostic studies, discussion with consultants, patie nt, and family members, as well as other required patient management activities is 60-minute Please note the above document was generated using voice recognition software. It may contain grammatical, syntax or spelling errors. Any formal questions or concerns about the content, text or information contained within the body of this dictation should be directly addressed to the provider for clarification History of Present Illness Chief Complaint: Left foot swelling for 3 days Primary Care Provider: Jose Armando Veloz MD Patient is a 58-year-old male with past medical history of type 2 diabetes mellitus, hyperlipidemia chronic respiratory failure on 2 L of oxygen due to COPD, chronic right heart failure, GRACIE on CPAP, GERD, scoliosis who presents with swelling and redness of left foot for the last 3 days. Patient reports that the swelling started on his fourth toe on his left foot which gradually progressed to the dorsal and plantar aspect of the foot leading to redness. He reports that he has not been able to use the foot due to it. He denies fever, chills, chest pain, shortness of breath, abdominal pain or prior history of cellulitis. On presentation to the ED, he was normotensive afebrile and saturating well on room air. CBC revealed mild leukocytosis, CMP showed bicarb of 33,. ESR was mildly elevated to 34 with a CRP of 2.95. Allergies Allergy/AdvReac Type Severity Reaction Status Date / Time levetiracetam [From [facility]] Allergy tongue Verified 12/28/23 16:34 edema morphine AdvReac Unknown Vomiting Verified 12/28/23 15:58 Home Medications Medication Instructions Recorded Confirmed Type aspirin 81 mg tablet,delayed 81 mg PO QAM 08/07/18 12/28/23 History release omega 9-wtg-kyd-fish oil 1,000 mg 2,000 mg PO QAM 08/07/18 12/28/23 History (120 mg-180 mg) capsule (Fish Oil) sumatriptan succinate 50 mg tablet 50 mg PO DIRECTED PRN Migraine 08/07/18 12/28/23 History (Imitrex) Headache CPAP Supplies #1 ea 06/01/19 10/21/20 Rx Oxygen Home E0424 #5 ea 08/03/19 10/21/20 Rx CPAP Supplies #1 ea 10/23/19 10/21/20 Rx amitriptyline 50 mg tablet 75 mg PO HS 11/04/19 12/28/23 History cyclobenzaprine 5 mg tablet 2.5 mg PO HS PRN Muscle Spasm 11/04/19 12/28/23 History famotidine 20 mg tablet 20 mg PO QAM 11/04/19 12/28/23 History gabapentin 100 mg capsule See Rx Instructions .Route .COMPLEX 11/04/19 12/28/23 History metoprolol succinate 25 mg 25 mg PO BID 11/04/19 12/28/23 History tablet,extended release 24 hr paroxetine HCl 40 mg tablet 40 mg PO QAM 11/04/19 12/28/23 History pravastatin 40 mg tablet 40 mg PO HS 11/04/19 12/28/23 History primidone 50 mg tablet 50 mg PO BID 11/04/19 12/28/23 History varenicline 1 mg tablet (Chantix 1 mg PO BID 11/04/19 12/28/23 History Continuing Month Box) benzonatate 200 mg capsule 200 mg PO TID PRN cough #30 caps 11/05/19 12/28/23 Rx levalbuterol HCl 1.25 mg/3 mL 1.25 mg (3 mL) inhalation Q4H #180 11/06/19 12/28/23 Rx solution for nebulization mL CPAP Machine #1 ea 04/22/20 10/21/20 Rx ipratropium 20 mcg-albuterol 100 1 puff inhalation QID PRN 05/19/20 12/28/23 Rx mcg/actuation mist for inhalation Shortness Of Breath #4 grams (Combivent Respimat) mometasone-formoterol HFA 200 2 puff inhalation BID #13 grams 02/20/21 12/28/23 Rx mcg-5 mcg/actuation aerosol inhaler (Dulera) albuterol sulfate 90 mcg/actuation 2 puff inhalation Q4H PRN 12/28/23 12/28/23 History aerosol inhaler Shortness Of Breath Or Wheezing furosemide 20 mg tablet 20 mg PO DAILY 12/28/23 12/28/23 History montelukast 10 mg tablet 10 mg PO DAILY 12/28/23 12/28/23 History potassium chloride 10 mEq 10 meq PO QAM 12/28/23 12/28/23 History tablet,extended release(part/cryst) spironolactone 25 mg tablet 25 mg PO QAM 12/28/23 12/28/23 History umeclidinium 62.5 mcg/actuation 1 inh inhalation QAM 12/28/23 12/28/23 History blister powder for inhalation (Incruse Ellipta) Past Med/Surg History Medical History (Updated 12/28/23 @ 16:03 by Marky Bolivar MD) Interstitial lung disease Abnormal diffusion capacity determined by pulmonary function test Restrictive lung disease Pneumonitis Hx of renal calculi Acute and chronic respiratory failure with hypoxia Hypoxia Migraine GRACIE (obstructive sleep apnea) GERD (gastroesophageal reflux disease) Pancreatitis Depression Dyslipidemia Surgical History S/P nasal surgery History of back surgery H/O colonoscopy S/P tonsillectomy Family History Other Cancer Diabetes Heart disease Lung disease Social History Smoking Status: Never smoker Preferred Language: Prydeinig marital status: Current Living Situation: Family current occupational status: unemployed Feels Safe at Home: Yes Review of Systems Review of Systems: All systems reviewed & are unremarkable except as noted in Subjective Physical Exam Physical Exam: Constitutional: Alert oriented x 3; not in distress. Respiratory: Bilateral basilar breath sound Cardiovascular: RRR, no murmur, no edema Vessels: no JVD or carotid bruit Abdomen: normal bowel sounds, soft, nontender, no hepatosplenomegaly Musculoskeletal: Redness present in fifth, fourth and third toe of left foot along with swelling. Tenderness present on palpation. No open wounds present. Neurologic: PERRL, EOMI, accommodation nl, no face palsy, no dysarthria CN's II- XI intact bilaterally and moves all extremities Psychiatric: A+Ox3, euthymic affect Results & Data Results & Data Vital Signs (Past 12 Hours) Vital Signs Temp Pulse Pulse Resp BP BP Pulse Ox 12/28/23 12:56 84 16 109/82 100 12/28/23 10:18 36.6 C 104 H 20 134/87 95 O2 Del Method O2 Flow Rate 12/28/23 12:56 Nasal Cannula 2 12/28/23 10:18 Nasal Cannula 2
[2023-12-28] MEDS ORDERED: POLYETHYLENE (MIRALAX) 17 GM PACK PO PRN (18:19)
[2023-12-28] MEDS ORDERED: ONDANSETRON INJ 2 MG/ML 2 ML VIAL IV PRN (18:19)
[2023-12-28] MEDS ORDERED: IPRATROPIUM BROMIDE/ALBUTEROL respimat INH INH PRN (18:19)
[2023-12-28] MEDS ORDERED: ALBUTEROL HFA 8 GM INHALER INH PRN (18:35)
[2023-12-28] MEDS ORDERED: IPRATROPIUM BROMIDE HFA INHALER INH PRN (18:35)
[2023-12-28] MEDS: cefTRIAXone SODIUM 2,000 MG in DEXTROSE 5 % MINI-B 50 ML IV SCH (19:34)
[2023-12-28] MEDS: ENOXAPARIN INJ 40 MG/0.4 ML SYR SQ SCH (19:35)
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
[2023-12-28] MEDS: ACETAMINOPHEN 325 MG TAB PO PRN (21:14)
[2023-12-28] MEDS: PRAVASTATIN SOD 40 MG TAB PO SCH (21:15)
[2023-12-28] MEDS: DOXYCYCLINE HYCLATE 100 MG CAP PO SCH (21:15)
[2023-12-28] MEDS: PRIMIDONE 50 MG TAB PO SCH (21:15)
[2023-12-28] MEDS: GABAPENTIN 400 MG CAP PO SCH (21:15)
[2023-12-28] MEDS: AMITRIPTYLINE HCL 25 MG TAB PO SCH (21:15)
[2023-12-28] MEDS: METOPROLOL SUCC 25MG EXT REL TAB PO SCH (21:15)
[2023-12-28] MEDS: CYCLOBENZAPRINE HCL 5 MG TAB PO PRN (21:16)
[2023-12-29 07:14] LABS: Basophils # (auto) 0.02 K/uL (0.00-0.20); Basophils % (auto) 0.2 %; Eosinophils # (auto) 0.24 K/uL (0.00-0.50); Eosinophils % (auto) 2.7 %; Hematocrit (blood only) 37.2 % (42.0-52.0); Hemoglobin 12.5 g/dl (14.0-18.0); Immature Granulocytes # (auto) 0.05 K/uL (0.01-0.20); Immature Granulocytes % (auto) 0.6 %; Lymphocytes # (auto) 3.02 K/uL (1.20-3.40); Lymphocytes % (auto) 34.2 %; Mean Corpuscular Hemoglobin 30.4 pg (25.0-34.0); Mean Corpuscular Hgb Conc 33.6 g/dL (32.0-36.0); Mean Corpuscular Volume 90.5 fL (80.0-100.0); Mean Platelet Volume 10.5 fL (9.4-12.4); Monocytes # (auto) 1.14 K/uL (0.11-0.59); Monocytes % (auto) 12.9 %; Neutrophils # (auto) 4.35 K/uL (1.40-6.50); Neutrophils % (auto) 49.4 %; Platelet Count 187 K/uL (130-400); RDW Coefficient of Variation 12.5 % (11.5-14.5); RDW Standard Deviation 41.3 fL (36.4-46.3); Red Blood Count 4.11 M/uL (4.70-6.10); White Blood Count 8.82 K/ul (4.8-10.8)
[2023-12-29 07:31] LABS: BUN Creatinine Ratio 15.2 (10-20); Calcium 8.7 mg/dl (8.6-10.3); Creatinine Clr Calc Pharmacy 88.7 ml/min; Est GFR (African American) 89.6 ml/min; Est GFR (Non-African American) 77.3 ml/min; Potassium 4.1 mmol/L (3.5-5.1)
[2023-12-29] MEDS: MONTELUKAST SODIUM 10 MG TABLET PO SCH (09:15)
[2023-12-29] MEDS: SPIRONOLACTONE 25 MG TAB PO SCH (09:15)
[2023-12-29] MEDS: GABAPENTIN 100 MG CAP PO SCH (09:15)
[2023-12-29] MEDS: FLUTICASONE/VILANTEROL 200/25MCG 14 PUFFS/INHALER INH SCH (09:16)
[2023-12-29] MEDS: PARoxetine HCL 20 MG TAB PO SCH (09:16)
[2023-12-29] MEDS: UMECLIDINIUM BROMIDE 62.5MCG/BLISTER 7 PUFFS/INHALER INH SCH (09:16)
[2023-12-29] MEDS: FUROSEMIDE 20 MG TAB PO SCH (09:16)
[2023-12-29] MEDS: FAMOTIDINE 20 MG TAB PO SCH (09:16)
[2023-12-29] MEDS: POTASSIUM CHLORIDE 10 MEQ TABCR PO SCH (09:16)
[2023-12-29] MEDS: ASPIRIN 81 MG ECTAB PO SCH (09:16)
--- NOTE | 2023-12-29 14:01 | Hospitalist Progress Note ---
Date of Service December 29, 2023 Assessment & Plan (1) Cellulitis: Plan 58-year-old male with past medical history of type 2 diabetes mellitus, hyperlipidemia, chronic respiratory failure on 2 L of oxygen due to COPD, chronic right heart failure, GRACIE on CPAP, GERD, scoliosis who presents with swelling and redness of left foot for the last 3 days. Cellulitis of left foot Patient presents with gradual swelling and redness of left foot for the last 3 days. Venous duplex negative for DVT Foot x-ray did not show any acute bony abnormality. Soft tissue swelling present ESR mildly elevated to 32 CRP of 2.95 MRI left foot pending to r/o osteomyelitis Blood Cx x2 NGTD Continue on ceftriaxone and doxycycline. Monitor for signs of improvement Anemia, chronic Pt with chronic anemia Hgb of 12/5, currently around baseline Anemia workup with iron studies, folate, b12 Continue to monitor H/H Hyponatremia Slight, sodium of 135 Continue to monitor DMII Glucose levels elevated AM hgba1c pending Elevated liver enzymes Alk phos elevated Continue to monitor Consider further workup if persistent Chronic conditions; COPDon 2 L of oxygen at baseline, continue on home inhalers Hyperlipidemiacontinue on pravastatin Hypertensioncontinue on metoprolol Mood disordercontinue on amitriptyline, paroxetine GRACIE- continue on CPAP Chronic right heart failurecontinue on Lasix, spironolactone, metoprolol GERDcontinue on Pepcid Diet: HH DVT prophylaxisLovenox Dispo: PT/OT ordered Admission and Anticipated Discharge Date Admission Date: December 28, 2023 Subjective sitting up in bed, [place] in [facility] States that he has pain in the foot that the tylenol ordered is not helping with. Review of Systems Review of Systems: All systems reviewed & are unremarkable except as noted in Subjective Physical Exam Physical Exam: General: Alert, oriented. No acute distress Skin: left foot with erythema and swelling Psych: Appropriate mood and affect Neuro: No gross deficits HEENT: NC/AT Chest: Nontender to palpation. CV: RRR Resp: Breath sounds clear bilaterally, no increased effort of breathing. Abdomen: Soft, nontender, nondistended. Extremities: left foot with erythema and swelling Results & Data Results & Data Vital Signs (Past 12 Hours) Vital Signs Temp Pulse Resp BP Pulse Ox O2 Del Method O2 Flow Rate 12/29/23 08:00 Nasal Cannula 1.5 12/29/23 07:10 36.6 C 82 17 116/70 97 Nasal Cannula 1 Diagnostic Findings Foot X-Ray 12/28/23 10:46 LEFT FOOT 3 VIEWS CLINICAL HISTORY: Left foot pain and swelling. FINDINGS: 3 views of the left foot are compared to study dated 12/28/2021. The skeletal structures are osteopenic. No acute fracture is seen. Mild osteoarthritic change is noted throughout the foot. Hammertoe deformities are canales ggested in the fourth and fifth toes. There is dorsal and lateral soft tissue edema. A high arch is noted. There is a small dorsal heel spur. IMPRESSION: Soft tissue swelling with no acute bony abnormality identified. Electronically signed by: Nate Haynes M.D. 12/28/2023 11:26 AM Venous Doppler Study 12/28/23 12:05 ULTRASOUND LEFT LOWER EXTREMITY VENOUS CLINICAL HISTORY: Left foot pain and swelling. COMPARISON STUDY: Left lower extremity venous ultrasound dated 12/28/2021. TECHNIQUE: Real-time, grayscale, and color Doppler sonography of the deep veins of the left lower extremity was performed from the inguinal crease to the calf. Compression and augmentation were utilized. FINDINGS: There is no sonographic evidence of deep venous thrombosis identified in the left lower extremity. The common femoral, superficial femoral, and popliteal veins are patent and normally compressible. The greater saphenous vein and the profunda femoris vein at the junction with the common femoral vein are clear. The visualized calf veins are patent. IMPRESSION: There is no sonographic evidence of deep venous thrombosis identified in the left lower extremity. ACT 112: Negative or not required by law. Electronically signed by: Nate Haynes M.D. 12/28/2023 2:55 PM (1) Cellulitis Laterality: left Site of cellulitis: extremity Site of cellulitis of extremity: lower extremity Qualified Code(s): L03.116 - Cellulitis of left lower limb
[2023-12-29] MEDS: GADOBUTROL 65ML VIAL IV ONE (21:08)
[2023-12-29] MEDS: KETOROLAC TROMETHAMINE 15 MG/ML VIAL IV PRN (21:43)
--- NOTE | 2023-12-29 22:53 | Magnetic Resonance Report ---
Exam(s): MRI LEFT FOOT W/WO Contrast IV Amt: 10ml gadavist EXAM: MR Left Lower Extremity Without and With Intravenous Contrast, Foot CLINICAL HISTORY: Reason for exam: r/o osteomyelitis. TECHNIQUE: Multiplanar magnetic resonance images of the left foot without and with intravenous contrast. CONTRAST: Patient received 10ml gadavist of IV contrast COMPARISON: No relevant prior studies available. FINDINGS: Severe dorsal lateral subcutaneous edema across the lateral aspect of the midfoot. No definite wound or ulcer however, this should be correlated with physical exam. No fluid collection or abscess. No MR evidence of osteomyelitis. No metatarsal fracture. No Lisfranc malalignment. Mild generalized atrophy of the intrinsic foot musculature, likely from diabetes. IMPRESSION: Severe dorsal lateral subcutaneous edema across the lateral aspect of the midfoot. No definite wound or ulcer however, this should be correlated with physical exam. No fluid collection or abscess. No MR evidence of osteomyelitis. Edema extends posterior to the field of view, consider ankle MRI, if clinically indicated. Electronically signed by: Matt Rodríguez MD 12/29/23 22:53 PM
[2023-12-30 07:00] LABS: Basophils # (auto) 0.02 K/uL (0.00-0.20); Basophils % (auto) 0.2 %; Eosinophils # (auto) 0.31 K/uL (0.00-0.50); Eosinophils % (auto) 3.3 %; Hemoglobin 12.8 g/dl (14.0-18.0); Immature Granulocytes # (auto) 0.05 K/uL (0.01-0.20); Immature Granulocytes % (auto) 0.5 %; Lymphocytes # (auto) 3.91 K/uL (1.20-3.40); Lymphocytes % (auto) 42.2 %; Mean Corpuscular Hemoglobin 30.5 pg (25.0-34.0); Mean Corpuscular Hgb Conc 33.7 g/dL (32.0-36.0); Mean Corpuscular Volume 90.5 fL (80.0-100.0); Mean Platelet Volume 10.6 fL (9.4-12.4); Monocytes % (auto) 15.1 %; Neutrophils # (auto) 3.58 K/uL (1.40-6.50); Neutrophils % (auto) 38.7 %; Platelet Count 195 K/uL (130-400); RDW Coefficient of Variation 12.5 % (11.5-14.5); RDW Standard Deviation 41.3 fL (36.4-46.3); White Blood Count 9.27 K/ul (4.8-10.8)
[2023-12-30 07:16] LABS: Albumin Level 3.8 gm/dl (3.4-5.0); BUN Creatinine Ratio 18.2 (10-20); Bilirubin,Total 0.4 mg/dl (0.2-1.0); Calcium 8.7 mg/dl (8.6-10.3); Est GFR (African American) 75.5 ml/min; Est GFR (Non-African American) 65.1 ml/min; Phosphorus 2.8 mg/dl (2.5-4.9); Potassium 3.9 mmol/L (3.5-5.1); Total Protein 7.8 gm/dl (6.0-8.3)
[2023-12-30 07:32] LABS: Estimated Average Glucose 117 mg/dl; Ferritin 146.4 ng/ml (8-388); Hemoglobin A1C 5.7 % (4.5-5.6)
[2023-12-30 07:38] LABS: Folate (Folic Acid),Ser orPlas 9.04 ng/ml (>5.38)
--- NOTE | 2023-12-30 16:44 | Hospitalist Progress Note ---
Date of Service December 30, 2023 Assessment & Plan (1) Cellulitis: Plan 58-year-old male with past medical history of type 2 diabetes mellitus, hyperlipidemia, chronic respiratory failure on 2 L of oxygen due to COPD, chronic right heart failure, GRACIE on CPAP, GERD, scoliosis who presents with swelling and redness of left foot for the last 3 days. Cellulitis of left foot Patient presents with gradual swelling and redness of left foot for the last 3 days. Venous duplex negative for DVT Foot x-ray did not show any acute bony abnormality. Soft tissue swelling present ESR mildly elevated to 32 CRP of 2.95 MRI left foot with no osteomyelitis Blood Cx x2 NGTD Continue on ceftriaxone and doxycycline. Monitor for signs of improvement Improving Possible charcot foot Pt with hammer toes Uses boot Podiatry followup Anemia, chronic Pt with chronic anemia Hgb of 12/5, currently around baseline Anemia workup with iron studies, folate, b12 Continue to monitor H/H Hyponatremia Slight, sodium of 135 Continue to monitor DMII Glucose levels elevated AM hgba1c pending Elevated liver enzymes Alk phos elevated Continue to monitor Consider further workup if persistent Chronic conditions; COPDon 2 L of oxygen at baseline, continue on home inhalers Hyperlipidemiacontinue on pravastatin Hypertensioncontinue on metoprolol Mood disordercontinue on amitriptyline, paroxetine GRACIE- continue on CPAP Chronic right heart failurecontinue on Lasix, spironolactone, metoprolol GERDcontinue on Pepcid Diet: HH DVT prophylaxisLovenox Dispo: PT/OT ordered Admission and Anticipated Discharge Date Admission Date: December 28, 2023 Subjective Pt states he has seen some improvement. Able to move foot more freely. Some tingling Worked with PT but didnt have boot/shoes Review of Systems Review of Systems: All systems reviewed & are unremarkable except as noted in Subjective Physical Exam Physical Exam: General: Alert, oriented. No acute distress Skin: left foot with erythema and swelling Psych: Appropriate mood and affect Neuro: No gross deficits HEENT: NC/AT Chest: Nontender to palpation. CV: RRR Resp: Breath sounds clear bilaterally, no increased effort of breathing. Abdomen: Soft, nontender, nondistended. Extremities: left foot with improving erythema and swelling Results & Data Results & Data Vital Signs (Past 12 Hours) Vital Signs Temp Pulse Resp BP Pulse Ox O2 Del Method O2 Flow Rate 12/30/23 15:39 36.3 C L 75 16 121/77 90 Room Air 12/30/23 08:00 Nasal Cannula 2 12/30/23 07:00 36.5 C 92 H 16 133/82 94 Nasal Cannula 2 (1) Cellulitis Laterality: left Site of cellulitis: extremity Site of cellulitis of ext remity: lower extremity Qualified Code(s): L03.116 - Cellulitis of left lower limb
[2023-12-31] MEDS: oxyCODONE HCL IR 5 MG TAB (IMMEDIATE RELEASE) PO PRN (05:20)
[2023-12-31 06:41] LABS: Albumin Globulin Ratio 0.9 (0.9-2); Albumin Level 3.7 gm/dl (3.4-5.0); BUN Creatinine Ratio 17.9 (10-20); Bilirubin,Total 0.3 mg/dl (0.2-1.0); Calcium 8.8 mg/dl (8.6-10.3); Creatinine Clr Calc Pharmacy 83.2 ml/min; Est GFR (African American) 82.9 ml/min; Est GFR (Non-African American) 71.5 ml/min; Magnesium 1.9 mg/dl (1.7-2.4); Phosphorus 2.4 mg/dl (2.5-4.9); Potassium 4.8 mmol/L (3.5-5.1); Total Protein 7.7 gm/dl (6.0-8.3)
[2023-12-31 07:42] LABS: Basophils # (auto) 0.05 K/uL (0.00-0.20); Basophils % (auto) 0.5 %; Eosinophils # (auto) 0.31 K/uL (0.00-0.50); Eosinophils % (auto) 3.3 %; Hematocrit (blood only) 37.5 % (42.0-52.0); Hemoglobin 12.6 g/dl (14.0-18.0); Immature Granulocytes # (auto) 0.07 K/uL (0.01-0.20); Immature Granulocytes % (auto) 0.7 %; Lymphocytes # (auto) 3.33 K/uL (1.20-3.40); Lymphocytes % (auto) 35.3 %; Mean Corpuscular Hemoglobin 30.4 pg (25.0-34.0); Mean Corpuscular Hgb Conc 33.6 g/dL (32.0-36.0); Mean Corpuscular Volume 90.4 fL (80.0-100.0); Mean Platelet Volume 10.8 fL (9.4-12.4); Monocytes # (auto) 1.19 K/uL (0.11-0.59); Monocytes % (auto) 12.6 %; Neutrophils # (auto) 4.49 K/uL (1.40-6.50); Neutrophils % (auto) 47.6 %; Platelet Count 196 K/uL (130-400); Platelet Estimate Normal (Normal); RDW Coefficient of Variation 12.5 % (11.5-14.5); RDW Standard Deviation 41.2 fL (36.4-46.3); Red Blood Count 4.15 M/uL (4.70-6.10); White Blood Count 9.44 K/ul (4.8-10.8)
[2023-12-31] MEDS ORDERED: POTASSIUM PHOS 3 MMOL/1 ML INFUSION IV STA (10:00)
[2023-12-31] MEDS: POTASSIUM PHOSPHATE 15 MMOL in SODIUM CHLORIDE 0.9% 250 ML IV ONE (12:09)
--- NOTE | 2023-12-31 13:41 | Discharge Summary ---
Discharge Summary Date of Service December 31, 2023 Principal Dx & Hospital Course #1 = Principal Diagnosis (1) Cellulitis: Plan 58-year-old male with past medical history of type 2 diabetes mellitus, hyperlipidemia, chronic respiratory failure on 2 L of oxygen due to COPD, chronic right heart failure, GRACIE on CPAP, GERD, scoliosis who presents with swelling and redness of left foot for the last 3 days. Cellulitis of left foot Patient presents with gradual swelling and redness of left foot for the last 3 days. Venous duplex negative for DVT Foot x-ray did not show any acute bony abnormality. Soft tissue swelling present ESR mildly elevated to 32 CRP of 2.95 MRI left foot with no osteomyelitis Blood Cx x2 NGTD Continue on ceftriaxone and doxycycline. Monitor for signs of improvement Improving Possible charcot foot Pt with hammer toes Uses boot Podiatry followup Anemia, chronic Pt with chronic anemia Hgb of 12/5, currently around baseline Anemia workup with iron studies, folate, b12 Continue to monitor H/H Hyponatremia Slight, sodium of 135 Continue to monitor DMII Glucose levels elevated AM hgba1c pending Elevated liver enzymes Alk phos elevated Continue to monitor Consider further workup if persistent Chronic conditions; COPDon 2 L of oxygen at baseline, continue on home inhalers Hyperlipidemiacontinue on pravastatin Hypertensioncontinue on metoprolol Mood disordercontinue on amitriptyline, paroxetine GRACIE- continue on CPAP Chronic right heart failurecontinue on Lasix, spironolactone, metoprolol GERDcontinue on Pepcid Diet: HH DVT prophylaxisLovenox Dispo: PT/OT ordered Discharge Exam General: Alert, oriented. No acute distress Skin: left foot with erythema and swelling Psych: Appropriate mood and affect Neuro: No gross deficits HEENT: NC/AT Chest: Nontender to palpation. CV: RRR Resp: Breath sounds clear bilaterally, no increased effort of breathing. Abdomen: Soft, nontender, nondistended. Extremities: left foot with improving erythema and swelling Updated Medication List Medication Instructions Recorded Confirmed Type aspirin 81 mg tablet,delayed 81 mg PO QAM 08/07/18 12/28/23 History release omega 6-nup-qlj-fish oil 1,000 mg 2,000 mg PO QAM 08/07/18 12/28/23 History (120 mg-180 mg) capsule (Fish Oil) sumatriptan succinate 50 mg tablet 50 mg PO DIRECTED PRN Migraine 08/07/18 12/28/23 History (Imitrex) Headache CPAP Supplies #1 ea 06/01/19 10/21/20 Rx Oxygen Home E0424 #5 ea 08/03/19 10/21/20 Rx CPAP Supplies #1 ea 10/23/19 10/21/20 Rx amitriptyline 50 mg tablet 75 mg PO HS 11/04/19 12/28/23 History cyclobenzaprine 5 mg tablet 2.5 mg PO HS PRN Muscle Spasm 11/04/19 12/28/23 History famotidine 20 mg tablet 20 mg PO QAM 11/04/19 12/28/23 History gabapentin 100 mg capsule See Rx Instructions .Route .COMPLEX 11/04/19 12/28/23 History metoprolol succinate 25 mg 25 mg PO BID 11/04/19 12/28/23 History tablet,extended release 24 hr paroxetine HCl 40 mg tablet 40 mg PO QAM 11/04/19 12/28/23 History pravastatin 40 mg tablet 40 mg PO HS 11/04/19 12/28/23 History primidone 50 mg tablet 50 mg PO BID 11/04/19 12/28/23 History varenicline 1 mg tablet (Chantix 1 mg PO BID 11/04/19 12/28/23 History Continuing Month Box) benzonatate 200 mg capsule 200 mg PO TID PRN cough #30 caps 11/05/19 12/28/23 Rx levalbuterol HCl 1.25 mg/3 mL 1.25 mg (3 mL) inhalation Q4H #180 11/06/19 12/28/23 Rx solution for nebulization mL CPAP Machine #1 ea 04/22/20 10/21/20 Rx ipratropium 20 mcg-albuterol 100 1 puff inhalation QID PRN 05/19/20 12/28/23 Rx mcg/actuation mist for inhalation Shortness Of Breath #4 grams (Combivent Respimat) mometasone-formoterol HFA 200 2 puff inhalation BID #13 grams 02/20/21 12/28/23 Rx mcg-5 mcg/actuation aerosol inhaler (Dulera) albuterol sulfate 90 mcg/actuation 2 puff inhalation Q4H PRN 12/28/23 12/28/23 History aerosol inhaler Shortness Of Breath Or Wheezing furosemide 20 mg tablet 20 mg PO DAILY 12/28/23 12/28/23 History montelukast 10 mg tablet 10 mg PO DAILY 12/28/23 12/28/23 History potassium chloride 10 mEq 10 meq PO QAM 12/28/23 12/28/23 History tablet,extended release(part/cryst) spironolactone 25 mg tablet 25 mg PO QAM 12/28/23 12/28/23 History umeclidinium 62.5 mcg/actuation 1 inh inhalation QAM 12/28/23 12/28/23 History blister powder for inhalation (Incruse Ellipta) Hospital Stay Data Consultations 12/28/23 15:38 ED Decision to Admit Stat Diagnostic Imagining Performed 12/28/23 12:05 US venous duplex leg [US venous doppler LE LT] Stat 12/29/23 14:53 MRI Foot [MR foot LT wo/w con] Urgent
--- NOTE | 2023-12-31 13:43 | Hospitalist Progress Note ---
Date of Service December 31, 2023 Assessment & Plan (1) Cellulitis: Plan 58-year-old male with past medical history of type 2 diabetes mellitus, hyperlipidemia, chronic respiratory failure on 2 L of oxygen due to COPD, chronic right heart failure, GRACIE on CPAP, GERD, scoliosis who presents with swelling and redness of left foot for the last 3 days. Cellulitis of left foot Patient presents with gradual swelling and redness of left foot for the last 3 days. Venous duplex negative for DVT Foot x-ray did not show any acute bony abnormality. Soft tissue swelling present ESR mildly elevated to 32 CRP of 2.95 MRI left foot with no osteomyelitis Blood Cx x2 NGTD Continue on ceftriaxone and doxycycline. Monitor for signs of improvement Improving Possible charcot foot Pt with hammer toes Uses boot Podiatry followup Anemia, chronic Pt with chronic anemia Hgb of 12/5, currently around baseline Anemia workup with iron studies, folate, b12- all wnl Continue to monitor H/H Hyponatremia Slight, sodium of 135 Continue to monitor DMII Glucose levels elevated AM hgba1c 5.7, well controlled Elevated liver enzymes Alk phos elevated Continue to monitor Consider further workup if persistent Chronic conditions; COPDon 2 L of oxygen at baseline, continue on home inhalers Hyperlipidemiacontinue on pravastatin Hypertensioncontinue on metoprolol Mood disordercontinue on amitriptyline, paroxetine GRACIE- continue on CPAP Chronic right heart failurecontinue on Lasix, spironolactone, metoprolol GERDcontinue on Pepcid Diet: HH DVT prophylaxisLovenox Dispo: PT/OT ordered-recommending return home Admission and Anticipated Discharge Date Admission Date: December 28, 2023 Subjective States that though foot is better than the day before, he is still having swelling, redness and pain. Unable to go home today. Review of Systems Review of Systems: All systems reviewed & are unremarkable except as noted in Subjective Physical Exam Physical Exam: General: Alert, oriented. No acute distress Skin: left foot with erythema and swelling Psych: Appropriate mood and affect Neuro: No gross deficits HEENT: NC/AT Chest: Nontender to palpation. CV: RRR Resp: Breath sounds clear bilaterally, no increased effort of breathing. Abdomen: Soft, nontender, nondistended. Extremities: left foot with improving erythema and swelling Results & Data Results & Data Vital Signs (Past 12 Hours) Vital Signs Temp Pulse Resp BP Pulse Ox O2 Del Method O2 Flow Rate 12/31/23 08:00 Nasal Cannula 2 12/31/23 07:35 36.6 C 86 16 118/75 94 Nasal Cannula 2 (1) Cellulitis Laterality: left Site of cellulitis: extremity Site of cellulitis of extremity: lower extremity Qualified Code(s): L03.116 - Cellulitis of left lower limb
[2024-01-01 07:44] LABS: Basophils # (auto) 0.05 K/uL (0.00-0.20); Basophils % (auto) 0.5 %; Eosinophils # (auto) 0.37 K/uL (0.00-0.50); Hematocrit (blood only) 38.5 % (42.0-52.0); Hemoglobin 12.8 g/dl (14.0-18.0); Immature Granulocytes # (auto) 0.08 K/uL (0.01-0.20); Immature Granulocytes % (auto) 0.9 %; Lymphocytes # (auto) 3.65 K/uL (1.20-3.40); Lymphocytes % (auto) 39.3 %; Mean Corpuscular Hemoglobin 30.7 pg (25.0-34.0); Mean Corpuscular Hgb Conc 33.2 g/dL (32.0-36.0); Mean Corpuscular Volume 92.3 fL (80.0-100.0); Mean Platelet Volume 10.3 fL (9.4-12.4); Monocytes # (auto) 1.21 K/uL (0.11-0.59); Neutrophils # (auto) 3.93 K/uL (1.40-6.50); Neutrophils % (auto) 42.3 %; Platelet Count 206 K/uL (130-400); RDW Coefficient of Variation 12.6 % (11.5-14.5); RDW Standard Deviation 42.5 fL (36.4-46.3); Red Blood Count 4.17 M/uL (4.70-6.10); White Blood Count 9.29 K/ul (4.8-10.8)
[2024-01-01 08:06] LABS: Albumin Level 3.8 gm/dl (3.4-5.0); BUN Creatinine Ratio 19.3 (10-20); Bilirubin,Total 0.3 mg/dl (0.2-1.0); Calcium 9.1 mg/dl (8.6-10.3); Creatinine Clr Calc Pharmacy 78.3 ml/min; Est GFR (Non-African American) 66.5 ml/min; Potassium 4.6 mmol/L (3.5-5.1); Total Protein 7.8 gm/dl (6.0-8.3)
--- NOTE | 2024-01-01 12:57 | Hospitalist Progress Note ---
Date of Service January 01, 2024 Assessment & Plan (1) Cellulitis: Plan 58-year-old male with past medical history of type 2 diabetes mellitus, hyperlipidemia, chronic respiratory failure on 2 L of oxygen due to COPD, chronic right heart failure, GRACIE on CPAP, GERD, scoliosis who presents with swelling and redness of left foot for the last 3 days. Cellulitis of left foot Patient presents with gradual swelling and redness of left foot for the last 3 days. Venous duplex negative for DVT Foot x-ray did not show any acute bony abnormality. Soft tissue swelling present ESR mildly elevated to 32 CRP of 2.95 MRI left foot with no osteomyelitis Blood Cx x2 NGTD Continue on doxycycline, rocephin broadened to Cefepime Monitor for signs of improvement Podiatry consulted, appreciate recs Possible charcot foot Pt with hammer toes Uses boot Podiatry followup Anemia, chronic Pt with chronic anemia Hgb of 12/5, currently around baseline Anemia workup with iron studies, folate, b12- all wnl Continue to monitor H/H Hyponatremia Slight, sodium of 135 Continue to monitor DMII Glucose levels elevated AM hgba1c 5.7, well controlled Elevated liver enzymes Alk phos elevated Continue to monitor Consider further workup if persistent Chronic conditions; COPDon 2 L of oxygen at baseline, continue on home inhalers Hyperlipidemiacontinue on pravastatin Hypertensioncontinue on metoprolol Mood disordercontinue on amitriptyline, paroxetine GRACIE- continue on CPAP Chronic right heart failurecontinue on Lasix, spironolactone, metoprolol GERDcontinue on Pepcid Diet: HH DVT prophylaxisLovenox Dispo: PT/OT ordered-recommending return home Admission and Anticipated Discharge Date Admission Date: December 28, 2023 Subjective States that though foot is better than the day before, he is still having swelling, redness and pain. Unable to go home today. Review of Systems Review of Systems: All systems reviewed & are unremarkable except as noted in Subjective Physical Exam Physical Exam: General: Alert, oriented. No acute distress Skin: left foot with erythema and swelling Psych: Appropriate mood and affect Neuro: No gross deficits HEENT: NC/AT Chest: Nontender to palpation. CV: RRR Resp: Breath sounds clear bilaterally, no increased effort of breathing. Abdomen: Soft, nontender, nondistended. Extremities: left foot with improving erythema and swelling Results & Data Results & Data Vital Signs (Past 12 Hours) Vital Signs Temp Pulse Resp BP Pulse Ox O2 Del Method O2 Flow Rate 01/01/24 07:44 Nasal Cannula 2 01/01/24 07:04 36.3 C L 78 16 143/82 H 97 Nasal Cannula 2 (1) Cellulitis Laterality: left Site of cellulitis: extremity Site of cellulitis of extremity: lower extremity Qualified Code(s): L03.116 - Cellulitis of left lower limb
[2024-01-01] MEDS: CEFEPIME 2,000 MG in SYRINGE 0 ML IV SCH (17:45)
[2024-01-02 06:08] LABS: Basophils # (auto) 0.04 K/uL (0.00-0.20); Basophils % (auto) 0.3 %; Eosinophils # (auto) 0.32 K/uL (0.00-0.50); Eosinophils % (auto) 2.5 %; Hematocrit (blood only) 38.7 % (42.0-52.0); Immature Granulocytes % (auto) 0.8 %; Lymphocytes # (auto) 4.25 K/uL (1.20-3.40); Lymphocytes % (auto) 33.4 %; Mean Corpuscular Hemoglobin 30.4 pg (25.0-34.0); Mean Corpuscular Hgb Conc 33.6 g/dL (32.0-36.0); Mean Corpuscular Volume 90.4 fL (80.0-100.0); Mean Platelet Volume 10.2 fL (9.4-12.4); Monocytes % (auto) 14.1 %; Neutrophils # (auto) 6.22 K/uL (1.40-6.50); Neutrophils % (auto) 48.9 %; Platelet Count 234 K/uL (130-400); RDW Coefficient of Variation 12.6 % (11.5-14.5); RDW Standard Deviation 41.4 fL (36.4-46.3); Red Blood Count 4.28 M/uL (4.70-6.10); White Blood Count 12.73 K/ul (4.8-10.8)
[2024-01-02 06:28] LABS: BUN Creatinine Ratio 20.5 (10-20); Calcium 9.2 mg/dl (8.6-10.3); Creatinine Clr Calc Pharmacy 76.4 ml/min; Est GFR (African American) 74.7 ml/min; Est GFR (Non-African American) 64.5 ml/min; Magnesium 2.1 mg/dl (1.7-2.4); Phosphorus 2.8 mg/dl (2.5-4.9); Potassium 4.5 mmol/L (3.5-5.1)
--- NOTE | 2024-01-02 14:18 | Podiatry Consultation ---
Date of Consultation January 02, 2024 Assessment & Plan (1) Cellulitis: Laterality: left Site of cellulitis: extremity Site of cellulitis of extremity: lower extremity Qualified Code(s): L03.116 - Cellulitis of left lower limb (2) Left foot pain: Plan Patient was examined and evaluated. We discussed at length etiology and treatment of his left foot pain. This is likely associated with an infectious process at this point with no evidence of underlying neuroarthropathy processes. In fact, with his high arch foot deformity, he likely has some underlying Charcot Ashly tooth considerations. This could be from his significant scoliosis and underlying nerve damage overall, though this would benefit from outpatient neurologic testing in further follow-up. There is no evidence of increasing flatfoot deformity and with his pain sensation intact, he is not likely to suffer from diabetic Charcot neuropathy in the near term. He should benefit most from antibiotics over the next 2 weeks or so. For skin and soft tissue infection such this, 2 weeks of oral antibiotics, such as Augmentin, should be effective in treating the patient's condition. On outpatient basis, [facility] and should follow up with them within a week of discharge. For now, we will sign off with no likely surgical intervention. He can be weightbearing as tolerated, though would benefit from weightbearing in a surgical boot until his pain is improved. Thank you for the consult will continue to help out as needed. History of Present Illness Reason for Consultation: Left foot cellulitis and Charcot concern Attending Physician: Viktoriya Carson MD History of Present Illness Patient was seen at bedside. He presented to the emergency Department recently with worsening symptoms of cellulitis to the left lower extremity. 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 The cellulitis, however, was a new change. He states that this left foot is his worse foot But it has not been this bad. [facility] and they have continued to manage him conservatively. He denies any trauma or injury. He does have pain to the lower extremity and has some long-standing numbness but has had significant pain recently. He denies any systemic signs of infection but has improved recently on IV antibiotics on this hospitalization. He denies any other recent medical history change and states that his diabetes is dietarily controlled. Allergies Allergy/AdvReac Type Severity Reaction Status Date / Time levetiracetam [From [facility]] Allergy tongue Verified 12/28/23 16:34 edema morphine AdvReac Unknown Vomiting Verified 12/28/23 15:58 Home Medications Medication Instructions Recorded Confirmed Type aspirin 81 mg tablet,delayed 81 mg PO QAM 08/07/18 12/28/23 History release omega 1-blj-bud-fish oil 1,000 mg 2,000 mg PO QAM 08/07/18 12/28/23 History (120 mg-180 mg) capsule (Fish Oil) sumatriptan succinate 50 mg tablet 50 mg PO DIRECTED PRN Migraine 08/07/18 12/28/23 History (Imitrex) Headache CPAP Supplies #1 ea 06/01/19 10/21/20 Rx Oxygen Home E0424 #5 ea 08/03/19 10/21/20 Rx CPAP Supplies #1 ea 10/23/19 10/21/20 Rx amitriptyline 50 mg tablet 75 mg PO HS 11/04/19 12/28/23 History cyclobenzaprine 5 mg tablet 2.5 mg PO HS PRN Muscle Spasm 11/04/19 12/28/23 History famotidine 20 mg tablet 20 mg PO QAM 11/04/19 12/28/23 History gabapentin 100 mg capsule See Rx Instructions .Route .COMPLEX 11/04/19 12/28/23 History metoprolol succinate 25 mg 25 mg PO BID 11/04/19 12/28/23 History tablet,extended release 24 hr paroxetine HCl 40 mg tablet 40 mg PO QAM 11/04/19 12/28/23 History pravastatin 40 mg tablet 40 mg PO HS 11/04/19 12/28/23 History primidone 50 mg tablet 50 mg PO BID 11/04/19 12/28/23 History varenicline 1 mg tablet (Chantix 1 mg PO BID 11/04/19 12/28/23 History Continuing Month Box) benzonatate 200 mg capsule 200 mg PO TID PRN cough #30 caps 11/05/19 12/28/23 Rx levalbuterol HCl 1.25 mg/3 mL 1.25 mg (3 mL) inhalation Q4H #180 11/06/19 12/28/23 Rx solution for nebulization mL CPAP Machine #1 ea 04/22/20 10/21/20 Rx ipratropium 20 mcg-albuterol 100 1 puff inhalation QID PRN 05/19/20 12/28/23 Rx mcg/actuation mist for inhalation Shortness Of Breath #4 grams (Combivent Respimat) mometasone-formoterol HFA 200 2 puff inhalation BID #13 grams 02/20/21 12/28/23 Rx mcg-5 mcg/actuation aerosol inhaler (Dulera) albuterol sulfate 90 mcg/actuation 2 puff inhalation Q4H PRN 12/28/23 12/28/23 History aerosol inhaler Shortness Of Breath Or Wheezing furosemide 20 mg tablet 20 mg PO DAILY 12/28/23 12/28/23 History montelukast 10 mg tablet 10 mg PO DAILY 12/28/23 12/28/23 History potassium chloride 10 mEq 10 meq PO QAM 12/28/23 12/28/23 History tablet,extended release(part/cryst) spironolactone 25 mg tablet 25 mg PO QAM 12/28/23 12/28/23 History umeclidinium 62.5 mcg/actuation 1 inh inhalation QAM 12/28/23 12/28/23 History blister powder for inhalation (Incruse Ellipta) Patient History Medical History (Updated 01/02/24 @ 14:28 by Theron Ortega DPM) Interstitial lung disease Abnormal diffusion capacity determined by pulmonary function test Restrictive lung disease Pneumonitis Hx of renal calculi Acute and chronic respiratory failure with hypoxia Hypoxia Migraine GRACIE (obstructive sleep apnea) GERD (gastroesophageal reflux disease) Pancreatitis Depression Dyslipidemia Surgical History S/P nasal surgery History of back surgery H/O colonoscopy S/P tonsillectomy Family History Other Cancer Diabetes Heart disease Lung disease Social History Smoking Status: Former smoker Second Hand Exposure: No; Do You Dip or Chew Tobacco: No; Tobacco Cessation Education Requested by Patient: No Hx Alcohol Use: Yes Alcohol type: beer Hx Substance Use: No Preferred Language: Luxembourgish Communication Ability: Effective Religious Education Teacher Required: No Beliefs That Will Affect Care: None marital status: Current Living Situation: Spouse current occupational status: unemployed Other Information That Helps Us Care for You: No Feels Safe at Home: Yes Safety Concerns: Feels Safe At This Time Assistive Devices: Cane and Walker Review of Systems Review of Systems: All systems reviewed & are unremarkable except as noted in HPI & below Constitutional: no fever, no chills and no fatigue Eyes: no problem reported Ear, Nose, Mouth, Throat: no problem reported Respiratory: no problem reported Cardiovascular: no problem reported Gastrointestinal: no nausea, no vomiting and no problem reported Musculoskeletal: + limited range of motion Integumentary: + erythema; no new lesions, no skin ulce r and no wounds Neurologic: + numbness and + paresthesia Psychiatric: no behavioral changes and no problem reported Physical Exam Physical Exam: Bilateral lower extremity focused exam: DP/PT pulses 2/4 bilaterally. CFT is br isk to the digits. Increased warmth is noted to the left lower extremity. No ascending cellulitis is noted. There is pain on palpation of the lateral aspect of the foot, in the area of the styloid process. No open wound or portal of entry is noted. There is local erythema to the dorsal midfoot. This is consistent with cellulitis. No palpable fluctuance is appreciated. No evidence of flatfoot deformity is noted with evidence of a high arch on the left foot consistent with underlying pes cavus. His cavus foot deformity Is appreciated more On the left symptomatic foot than the right. Focal decrease in range of motion is appreciated, with guarding of the left foot noted due to pain. There is a decrease in global sensation to the lower extremity as well, though pain and pressure sensation are still intact. Radiographs reveal no evidence of fractures or dislocations. No arthritic changes are noted, except for some slight talonavicular joint narrowing, most notably medially. MRI reveals dorsal midfoot cellulitis, consistent with clinical exam findings, with no evidence of bone involvement whatsoever. There is no evidence for acute Charcot Neuroarthropathy process Constitutional: WD/WN, vitals as above no acute distress Eyes: PERRL, conjunctivae normal, anicteric sclerae ENMT: external ear and nose normal, oropharynx normal Neck: trachea midline, no thyromegaly Respiratory: normal respiratory effort, lungs clear to auscultation Cardiovascular: RRR, no murmur, no edema Vessels: posterior tibial pulses present and dorsalis pedis pulses present Chest (Breasts): Chest: normal inspection of chest Gastrointestinal (Abdomen): Inspection/Auscultation: abdomen normal to inspection; abdomen not distended Musculoskeletal: no cyanosis or clubbing, extremities motor strength 5/5 Head/Neck/Chest: normocephalic and head atraumatic Skin: no rashes, warm and dry + erythema; no lesions and no ulcers Neurologic: patellar DTR's 2+ bilat, sensation intact Psychiatric: A+Ox3, euthymic affect Results & Data Vital Signs (Past 12 Hours) Vital Signs Temp Pulse Resp BP Pulse Ox O2 Del Method O2 Flow Rate 01/02/24 06:59 36.6 C 91 H 16 168/84 H 92 Nasal Cannula 2 Diagnostic Findings Radiographs and MRI reviewed. Reveal no osseous concern or drainable fluid collections. No evidence for acute or chronic neuroarthropathy.
--- NOTE | 2024-01-02 14:58 | Hospitalist Progress Note ---
Date of Service January 02, 2024 Assessment & Plan (1) Cellulitis: Plan 58-year-old male with past medical history of type 2 diabetes mellitus, hyperlipidemia, chronic respiratory failure on 2 L of oxygen due to COPD, chronic right heart failure, GRACIE on CPAP, GERD, scoliosis who presents with swelling and redness of left foot for the last 3 days. Cellulitis of left foot Patient presents with gradual swelling and redness of left foot for the last 3 days. Venous duplex negative for DVT Foot x-ray did not show any acute bony abnormality. Soft tissue swelling present ESR mildly elevated to 32 CRP of 2.95 MRI left foot with no osteomyelitis Blood Cx x2 NGTD Continue on doxycycline, rocephin broadened to Cefepime Monitor for signs of improvement Podiatry consulted, appreciate recs -recommended "2 weeks of oral antibiotics, such as Augmentin, should be effective in treating the patient's condition. On outpatient basis, he should [facility] and should follow up with them within a week of discharge. " Possible charcot foot Pt with hammer toes Uses boot Podiatry followup Anemia, chronic Pt with chronic anemia Hgb of 12/5, currently around baseline Anemia workup with iron studies, folate, b12- all wnl Continue to monitor H/H Hyponatremia Slight, sodium of 135 Continue to monitor DMII Glucose levels elevated AM hgba1c 5.7, well controlled Elevated liver enzymes Alk phos elevated Continue to monitor Consider further workup if persistent Chronic conditions; COPDon 2 L of oxygen at baseline, continue on home inhalers Hyperlipidemiacontinue on pravastatin Hypertensioncontinue on metoprolol Mood disordercontinue on amitriptyline, paroxetine GRACIE- continue on CPAP Chronic right heart failurecontinue on Lasix, spironolactone, metoprolol GERDcontinue on Pepcid Diet: HH DVT prophylaxisLovenox Dispo: PT/OT ordered-recommending return home Admission and Anticipated Discharge Date Admission Date: December 28, 2023 Subjective Pt was seen sitting in bed. In contact with podiatry, continue current course essentially, follow up outpt. Review of Systems Review of Systems: All systems reviewed & are unremarkable except as noted in Subjective Physical Exam Physical Exam: General: Alert, oriented. No acute distress Skin: left foot with erythema and swelling Psych: Appropriate mood and affect Neuro: No gross deficits HEENT: NC/AT Chest: Nontender to palpation. CV: RRR Resp: Breath sounds clear bilaterally, no increased effort of breathing. Abdomen: Soft, nontender, nondistended. Extremities: left foot with improving erythema and swelling Results & Data Results & Data Vital Signs (Past 12 Hours) Vital Signs Temp Pulse Resp BP Pulse Ox O2 Del Method O2 Flow Rate 01/02/24 14:51 36.4 C L 86 16 135/79 96 Nasal Cannula 2 01/02/24 06:59 36.6 C 91 H 16 168/84 H 92 Nasal Cannula 2 (1) Cellulitis Laterality: left Site of cellulitis: extremity Site of cellulitis of extremity: lower extremity Qualified Code(s): L03.116 - Cellulitis of left lower limb
[2024-01-03 06:59] LABS: Basophils # (auto) 0.04 K/uL (0.00-0.20); Basophils % (auto) 0.3 %; Eosinophils # (auto) 0.37 K/uL (0.00-0.50); Eosinophils % (auto) 3.2 %; Hematocrit (blood only) 38.7 % (42.0-52.0); Hemoglobin 12.5 g/dl (14.0-18.0); Immature Granulocytes % (auto) 0.9 %; Lymphocytes # (auto) 3.65 K/uL (1.20-3.40); Lymphocytes % (auto) 31.5 %; Mean Corpuscular Hemoglobin 29.6 pg (25.0-34.0); Mean Corpuscular Hgb Conc 32.3 g/dL (32.0-36.0); Mean Corpuscular Volume 91.7 fL (80.0-100.0); Mean Platelet Volume 9.9 fL (9.4-12.4); Monocytes # (auto) 1.46 K/uL (0.11-0.59); Monocytes % (auto) 12.6 %; Neutrophils # (auto) 5.96 K/uL (1.40-6.50); Neutrophils % (auto) 51.5 %; Platelet Count 233 K/uL (130-400); RDW Coefficient of Variation 12.5 % (11.5-14.5); RDW Standard Deviation 41.8 fL (36.4-46.3); Red Blood Count 4.22 M/uL (4.70-6.10); White Blood Count 11.58 K/ul (4.8-10.8)
[2024-01-03 07:15] LABS: BUN Creatinine Ratio 24.5 (10-20); Calcium 8.9 mg/dl (8.6-10.3); Creatinine Clr Calc Pharmacy 91.3 ml/min; Est GFR (African American) 92.8 ml/min; Est GFR (Non-African American) 80.1 ml/min; Potassium 4.3 mmol/L (3.5-5.1)
--- NOTE | 2024-01-03 11:46 | Discharge Summary ---
Discharge Summary Date of Service January 03, 2024 Notes For Next Care Provider Patient to complete 2-week course of Augmentin for left foot cellulitis. MRI performed inpatient was negative for osteomyelitis. It is recommended he follow-up with podiatry closely as outpatient. It is also recommended that he may bear weight as tolerated, but with surgical boot in place. Medication Changes From Visit Augmentin 875 mg 1 tablet by mouth twice daily for 14 days. Next scheduled doses in the evening of 01/03/2024. Florastor 250 mg 1 tablet daily for 14 days. This is a probiotic to protect your GI health while on antibiotics. Please continue all other medications as prescribed. Admission HPI Per Admitting Provider Patient is a 58-year-old male with past medical history of type 2 diabetes mellitus, hyperlipidemia chronic respiratory failure on 2 L of oxygen due to COPD, chronic right heart failure, GRACIE on CPAP, GERD, scoliosis who presents with swelling and redness of left foot for the last 3 days. Patient reports that the swelling started on his fourth toe on his left foot which gradually progressed to the dorsal and plantar aspect of the foot leading to redness. He reports that he has not been able to use the foot due to it. He denies fever, chills, chest pain, shortness of breath, abdominal pain or prior history of cellulitis. On presentation to the ED, he was normotensive afebrile and saturating well on room air. CBC revealed mild leukocytosis, CMP showed bicarb of 33,. ESR was mildly elevated to 34 with a CRP of 2.95. Admission Exam Per Admitting Provider Constitutional: Alert oriented x 3; not in distress. Respiratory: Bilateral basilar breath sound Cardiovascular: RRR, no murmur, no edema Vessels: no JVD or carotid bruit Abdomen: normal bowel sounds, soft, nontender, no hepatosplenomegaly Musculoskeletal: Redness present in fifth, fourth and third toe of left foot along with swelling. Tenderness present on palpation. No open wounds present. Neurologic: PERRL, EOMI, accommodation nl, no face palsy, no dysarthria CN's II- XI intact bilaterally and moves all extremities Psychiatric: A+Ox3, euthymic affect Principal Dx & Hospital Course #1 = Principal Diagnosis (1) Cellulitis: Plan 58-year-old male with past medical history of type 2 diabetes mellitus, hyperlipidemia, chronic respiratory failure on 2 L of oxygen due to COPD, chroni c right heart failure, GRACIE on CPAP, GERD, scoliosis who presents to ED with swelling and redness of left foot for the last 3 days. He was hospitalized and treated for the following. Cellulitis of left foot Patient presents with gradual swelling and redness of left foot for the last 3 days. Venous duplex negative for DVT Foot x-ray did not show any acute bony abnormality. Soft tissue swelling present ESR mildly elevated to 32 CRP of 2.95 MRI left foot with no osteomyelitis Blood Cx x2 NGTD He was seen and evaluated by podiatry who recommended 2 weeks of oral Augmentin. He has been scheduled with his established supervisor lens generating on 01/09 at 1 PM for close follow-up. Possible charcot foot Pt with hammer toes Uses boot Podiatry followup as noted above Anemia, chronic Pt with chronic anemia Hgb of 12/5, currently around baseline Anemia workup with iron studies, folate, b12- all wnl Continue to monitor H/H Hyponatremia Resolved DMII Glucose levels elevated AM hgba1c 5.7, well controlled Elevated liver enzymes Alk phos elevated Remains elevated, recommend outpatient follow-up Chronic conditions remained hemodynamically stable throughout admission: COPDon 2 L of oxygen at baseline, continue on home inhalers Hyperlipidemiacontinue on pravastatin Hypertensioncontinue on metoprolol Mood disordercontinue on amitriptyline, paroxetine GRACIE- continue on CPAP Chronic right heart failurecontinue on Lasix, spironolactone, metoprolol GERDcontinue on Pepcid On day of discharge she was hemodynamically stable. His left foot erythema has completely resolved but he still has residual left foot and ankle swelling. He continues to have pain when he bears weight, but this is much improved. He admits to having a surgical boot at home and will wear this when ambulating. He is encouraged to take all antibiotics as prescribed along with a daily probiotic. Patient condition assessment treatment plan was discussed as above. He agrees and will comply. Discharge Exam Gen: WD/WN, NAD, A&O x3 HEENT: Normocephalic, atraumatic, conjunctivae moist, sclerae anicteric, mucous membranes moist. Lung: Clear to Auscultation bilaterally, no wheezes/rales/rhonchi Heart: Regular rate, regular rhythm, no murmurs, rubs, or gallops Abdomen: Soft, NT, ND +BS x 4 Extremities: No edema, left ankle deformities noted, erythema has resolved, mild swelling Skin: Warm, no rash, negative turgor. Updated Medication List Medication Instructions Recorded Confirmed Type aspirin 81 mg tablet,delayed 81 mg PO QAM 08/07/18 12/28/23 History release omega [id number]-fish oil 1,000 mg 2,000 mg PO QAM 08/07/18 12/28/23 History (120 mg-180 mg) capsule (Fish Oil) sumatriptan succinate 50 mg tablet 50 mg PO DIRECTED PRN Migraine 08/07/18 12/28/23 History (Imitrex) Headache CPAP Supplies #1 ea 06/01/19 10/21/20 Rx Oxygen Home E0424 #5 ea 08/03/19 10/21/20 Rx CPAP Supplies #1 ea 10/23/19 10/21/20 Rx amitriptyline 50 mg tablet 75 mg PO HS 11/04/19 12/28/23 History cyclobenzaprine 5 mg tablet 2.5 mg PO HS PRN Muscle Spasm 11/04/19 12/28/23 History famotidine 20 mg tablet 20 mg PO QAM 11/04/19 12/28/23 History gabapentin 100 mg capsule See Rx Instructions .Route .COMPLEX 11/04/19 12/28/23 History metoprolol succinate 25 mg 25 mg PO BID 11/04/19 12/28/23 History tablet,extended release 24 hr paroxetine HCl 40 mg tablet 40 mg PO QAM 11/04/19 12/28/23 History pravastatin 40 mg tablet 40 mg PO HS 11/04/19 12/28/23 History primidone 50 mg tablet 50 mg PO BID 11/04/19 12/28/23 History varenicline 1 mg tablet (Chantix 1 mg PO BID 11/04/19 12/28/23 History Continuing Month Box) benzonatate 200 mg capsule 200 mg PO TID PRN cough #30 caps 11/05/19 12/28/23 Rx levalbuterol HCl 1.25 mg/3 mL 1.25 mg (3 mL) inhalation Q4H #180 11/06/19 12/28/23 Rx solution for nebulization mL CPAP Machine #1 ea 04/22/20 10/21/20 Rx ipratropium 20 mcg-albuterol 100 1 puff inhalation QID PRN 05/19/20 12/28/23 Rx mcg/actuation mist for inhalation Shortness Of Breath #4 grams (Combivent Respimat) mometasone-formoterol HFA 200 2 puff inhalation BID #13 grams 02/20/21 12/28/23 Rx mcg-5 mcg/actuation aerosol inhaler (Dulera) albuterol sulfate 90 mcg/actuation 2 puff inhalation Q4H PRN 12/28/23 12/28/23 History aerosol inhaler Shortness Of Breath Or Wheezing furosemide 20 mg tablet 20 mg PO DAILY 12/28/23 12/28/23 History montelukast 10 mg tablet 10 mg PO DAILY 12/28/23 12/28/23 History potassium chloride 10 mEq 10 meq PO QAM 12/28/23 12/28/23 History tablet,extended release(part/cryst) spironolactone 25 mg tablet 25 mg PO QAM 12/28/23 12/28/23 History umeclidinium 62.5 mcg/actuation 1 inh inhalation QAM 12/28/23 12/28/23 History blister powder for inhalation (Incruse Ellipta) Saccharomyces boulardii 250 mg 250 mg PO DAILY #14 caps 01/03/24 Rx capsule (Florastor) amoxicillin 875 mg-potassium 1 tab PO Q12H 2 weeks #28 tabs 01/03/24 Rx clavulanate 125 mg tablet Hospital Stay Data Consultations 12/28/23 15:38 ED Decision to Admit Stat 01/01/24 09:52 Consult Podiatry Routine Diagnostic Imagining Performed Foot X-Ray 12/28/23 10:46 LEFT FOOT 3 VIEWS CLINICAL HISTORY: Left foot pain and swelling. FINDINGS: 3 views of the left foot are compared to study dated 12/28/2021. The skeletal structures are osteopenic. No acute fracture is seen. Mild osteoarthritic change is noted throughout the foot. Hammertoe deformities are suggested in the fourth and fifth toes. There is dorsal and lateral soft tissue edema. A high arch is noted. There is a small dorsal heel spur. IMPRESSION: Soft tissue swelling with no acute bony abnormality identified. Electronically signed by: Nate Haynes M.D. 12/28/2023 11:26 AM Venous Doppler Study 12/28/23 12:05 ULTRASOUND LEFT LOWER EXTREMITY VENOUS CLINICAL HISTORY: Left foot pain and swelling. COMPARISON STUDY: Left lower extremity venous ultrasound dated 12/28/2021. TECHNIQUE: Real-time, grayscale, and color Doppler sonography of the deep veins of the left lower extremity was performed from the inguinal crease to the calf. Compression and augmentation were utilized. FINDINGS: There is no sonographic evidence of deep venous thrombosis identified in the left lower extremity. The common femoral, superficial femoral, and popliteal veins are patent and normally compressible. The greater saphenous vein and the profunda femoris vein at the junction with the common femoral vein are clear. The visualized calf veins are patent. IMPRESSION: There is no sonographic evidence of deep venous thrombosis identified in the left lower extremity. ACT 112: Negative or not required by law. Electronically signed by: Nate Haynes M.D. 12/28/2023 2:55 PM Foot MRI 12/29/23 14:53 Exam(s): MRI LEFT FOOT W/WO Contrast IV Amt: 10ml gadavist EXAM: MR Left Lower Extremity Without and With Intravenous Contrast, Foot CLINICAL HISTORY: Reason for exam: r/o osteomyelitis. TECHNIQUE: Multiplanar magnetic resonance images of the left foot without and with intravenous contrast. CONTRAST: Patient received 10ml gadavist of IV contrast COMPARISON: No relevant prior studies available. FINDINGS: Severe dorsal lateral subcutaneous edema across the lateral aspect of the midfoot. No definite wound or ulcer however, this should be correlated with physical exam. No fluid collection or abscess. No MR evidence of osteomyelitis. No metatarsal fracture. No Lisfranc malalignment. Mild generalized atrophy of the intrinsic foot musculature, likely from diabetes. IMPRESSION: Severe dorsal lateral subcutaneous edema across the lateral aspect of the midfoot. No definite wound or ulcer however, this should be correlated with physical exam. No fluid collection or abscess. No MR evidence of osteomyelitis. Edema extends posterior to the field of view, consider ankle MRI, if clinically indicated. Electronically signed by: Matt Rodríguez MD 12/29/23 22:53 PM Pending Results Patient Have Any Pending Studies at Discharge: No Discharge Instructions Given to Patient (Per Discharging Provider) MEDICATION CHANGES: Augmentin 875 mg 1 tablet by mouth twice daily for 14 days. Next scheduled doses in the evening of 01/03/2024. Florastor 250 mg 1 tablet daily for 14 days. This is a probiotic to protect your GI health while on antibiotics. Please continue all other medications as prescribed. SUMMARY OF TEST RESULTS: You were admitted to hospital secondary to cellulitis of your left foot. You underwent a venous Doppler study which was negative for blood clot. You also underwent a left foot MRI which revealed swelling of your midfoot, but there was no signs of infection to the bone. You were seen and evaluated by podiatry who recommended that you can bear weight as tolerated with a surgical boot. It is also recommended that you complete an additional 2 weeks of antibiotic therapy. It is highly recommended that you follow-up closely with your supervisor lens generating. An appointment has been made for this. PENDING TEST RESULTS: None RECOMMENDATIONS FOR FOLLOW-UP: Please complete antibiotics in their entirety. Please follow-up with primary care provider as scheduled. [facility] with [facility]. A hospital follow-up was arranged for you. It is recommended that when bearing weight on your left foot you are a surgical boot. OTHER INSTRUCTIONS: Seek medical attention if you have: * temperature above 101 * chest pain or trouble breathing * abdominal pain, nausea, vomiting * diarrhea, dark stools or bloody stools * any unanswered questions or concerns Call 911 if symptoms are severe. Please take good care of yourself. It has been a pleasure taking care of you. Please take care of yourself. If you have any questions regarding your recent hospitalization please contact [facility] and request [facility] @ [phone]. Cristel Cullen PA-C Total Time Total Time Spent Total Time Spent (In Minutes): 45 minutes Supervising Physician Co-Signing Physician Notes Pt was seen and examined by myself, Viktoriya Carson MD on the day of service. Care was coordinated with Cristel Cullen PA-C. Mr. Winchester was sitting at bedside. present. States that his foot is much better, ready to go home. Swelling and pain much improved. On exam left foot with decreased swelling and erythema on exam. Podiatry recs for d/c noted, please encourage followup after discharge. Continue with antibiotics for 2 more weeks per podiatry recs. Otherwise as above. I spent a total [id number] coordinating, documenting, and providing care for this patient excluding time spent in the performance of separately billed services
== END 2024-01-03 13:17 | disposition home or self-care (01) | DRG 603 ==
LOC: ED 10:17 → 3E 16:08 → SUATTDRO 16:08 → 3E 17:38

== ENCOUNTER 2024-04-30 03:55 | Inpatient (IN) ==
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
--- OUTSIDE RECORDS SUMMARY | 2024-04-30 04:05 | External Medical Summary ---
Author Name Unknown Address Unknown Organization K0G:[facility] [address] - [address] [place] [address] Laboratory Report Ordering Provider Test Date Status EDWINA BOWIE 01/23/2024 09:03:51 Final Observation Date Value Abnormality Reference (Units ) Status BUN 01/23/2024 09:03:51 15 6-20 (mg/dL) Final Creatinine 01/23/2024 09:03:51 1.0 0.6-1.2 (mg/dL) Final Glomerular filtration rate/1.73 sq M.predicted [Volume Rate/Area] in Serum, Plasma or Blood by Creatinine-based formula (CKD-EPI) 01/23/2024 09:03:51 84 >=60 (mL/min) Final eGFR is calculated based on the CKD-EPI 2020 equation Sodium 01/23/2024 09:03:51 139 135-146 (m mol/L) Final Potassium 01/23/2024 09:03:51 4.2 3.5-5.1 (m mol/L) Final Cl 01/23/2024 09:03:51 99 98-107 (mm ol/L) Final CO2 01/23/2024 09:03:51 30 22-32 (mmo l/L) Final Anion gap 01/23/2024 09:03:51 10 7-15 (mmol /L) Final Glucose 01/23/2024 09:03:51 92 70-120 (mg /dL) Final Albumin 01/23/2024 09:03:51 4.2 3.8-5.0 (g /dL) Final AST (Aspartate aminotransferase) 01/23/2024 09:03:51 42 10-50 (U/L) Fin al Alk Phos 01/23/2024 09:03:51 164 Above high normal 35 -130 (U/L) Final Bilirubin, Total 01/23/2024 09:03:51 0.4 <=1 .2 (mg/dL) Final Calcium 01/23/2024 09:03:51 9.2 8.4-10.2 ( mg/dL) Final Protein 01/23/2024 09:03:51 8.4 Above high normal 6. 0-8.3 (g/dL) Final ALT (Alanine aminotransferase) 01/23/2024 09:03:51 52 Above high normal 10-50 (U/L) Final Performing Location [facility] [address] - [address] [facility] [address]
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
--- OUTSIDE RECORDS SUMMARY | 2024-04-30 04:05 | External Medical Summary ---
Author Name Unknown Address Unknown Organization K01:[facility] [place] [address] [place] [address] Laboratory Report Ordering Provider Test Date Status SHEKHAR BORRERO 01/23/2024 09:03:51 Final Observation Date Value Abnormality Reference (Units ) Status MYCODE SPECIMEN-SST 01/23/2024 09:03:51 Freezing of extracted DNA, whole blood and/or serum. Final Performing Location [facility] [place] [address] [place] [address]
--- OUTSIDE RECORDS SUMMARY | 2024-04-30 04:05 | External Medical Summary ---
Author Name Unknown Address Unknown Organization K0G:[facility] [address] - [address] [place] [address] Laboratory Report Ordering Provider Test Date Status KRISTI ORDAZ 01/23/2024 09:03:51 Final Observation Date Value Abnormality Reference (Units ) Status WBC, Total 01/23/2024 09:03:51 10.99 Above high normal 4 .00-10.80 (K/uL) Final RBC 01/23/2024 09:03:51 4.67 4.50-5.25 (M/uL) Final Hemoglobin 01/23/2024 09:03:51 14.3 14.0-16.8 (g/dL) Final HCT 01/23/2024 09:03:51 43.9 40.0-48.4 (%) Final MCV 01/23/2024 09:03:51 94.0 82.0-99.5 (fL) Final MCH 01/23/2024 09:03:51 30.6 27.0-34.0 (pg) Final MCHC 01/23/2024 09:03:51 32.6 32.0-36.0 (g/dL) Final RDW 01/23/2024 09:03:51 12.9 11.5-15.5 (%) Final Platelets 01/23/2024 09:03:51 197 140-400 (K /uL) Final MPV 01/23/2024 09:03:51 10.0 6.6-11.1 ( fL) Final Performing Location [facility] MAT [address] - [address] [place] [address]
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
--- OUTSIDE RECORDS SUMMARY | 2024-04-30 04:05 | External Medical Summary ---
Author Name Unknown Address Unknown Organization K01:LABORATORY [facility] - [address] [place] [address] Laboratory Report Ordering Provider Test Date Status SHEKHAR BORRERO 01/23/2024 09:03:51 Final Observation Date Value Abnormality Reference (Units ) Status MYCODE SPECIMEN-SST 01/23/2024 09:03:51 Freezing of extracted DNA, whole blood and/or serum. Final Performing Location LABORATORY [facility] - [address] [place] [address]
--- NOTE | 2024-04-30 04:28 | Emergency Department Note ---
Impression & Plan Acute GI bleeding, Acute hypotension Admit to the [facility] ED Provider Note NAME: LELO CONCEPCION AGE: 58 SEX: Male INFORMANT: Patient ED PROVIDER(S): Jessica Tariq DO CHIEF COMPLAINT: GI bleed PLAN: Disposition: Admit to the [facility] MEDICAL DECISION MAKING: this is a 58-year-old male patient who presents to the emergency department with sudden onset of abdominal cramping and rectal bleeding. Around midnight he noted some lower abdominal pain. He had a bowel movement which initially was dark in color with some streaks of red and then turned to all bright red. The patient was typed and screened. The patient does take baby aspirin daily but has never had GI bleeding before. Patient underwent colonoscopy approximately 10 years ago which was normal. Laboratory studies reveal significant leukocytosis with a white blood cell count of 19.2. Hemoglobin was stable at 11.2 and hematocrit 34.3. BUN was elevated at 43. Glucose was 169. I did repeat his hemoglobin approximately 1 hour later and it remained approximately the same. Troponin was normal. Glucose was 169. Patient did become hypotensive and received IV crystalloid to support his blood pressure. He had no bloody bowel movements here. I did perform a rectal exam which revealed melena. Patient had no further crampy abdominal pain. He denies any family history of colon cancer. I discussed case with [facility] and they will evaluate for further inpatient care. Care/management discussed with: The patient and his Triage Nursing notes: reviewed and agree with them. Vital Signs: reviewed and remarkable for hypotension Additional History obtained from: his is at the bedside Differential Diagnosis: lower GIB bleed, diverticular bleed, hemorrhoidal bleeding Diagnostics, independently interpreted by me: ECG: normal sinus rhythm at a rate of [address] segment elevation or signs of ischemia. There is no ectopy Repeat ECG: Normal sinus rhythm at a rate of [address] segment elevation or signs of ischemia. There is no ectopy. Cardiac Monitoring: Normal sinus rhythm at a rate of 97 HPI: 58 year old Male arrives for evaluation of abdominal pain and rectal bleeding. around midnight tonight, the patient awoke with some pain in his lower abdomen. He moved his bowels and noted that they were dark in color with some red streaks. He continued to have bowel movements that were all bright red blood. He has never had symptoms like this in the past. Patient underwent routine colonoscopy 10 years ago which was normal. patient states he became quite dizzy and lightheaded when EMS moved him to their stretcher to the point that he was sweating, dizzy and had seizure-like activity. He states it is not unusual for him to have seizure-like activity when he is stressed PAST MEDICAL HISTORY: See Below, PAST SURGICAL HISTORY: See Below, SOCIAL HISTORY: Patient no longer smokes, he lives with his HOME MEDICATIONS: see list ALLERGIES: see list VITALS: See Below PHYSICAL EXAMINATION: HEENT: Head - normocephalic and atraumatic Pupils are equal, round, and reactive to light. Extraocular eye muscles are intact, and sclera are anicteric. Nose - moist nasal mucosa without discharge. Mouth - moist buccal mucosa. Oropharynx is nonerythematous and there is no tonsillar exudate or edema noted. Neck: Supple; no JVD or cervical lymphadenopathy. Heart: Regular rate and rhythm. There is a normal S1 and S2 with no murmurs, clicks, or gallops appreciated. Lungs: Diminished lung sounds in all lung benson with no wheezing. Abdomen: Soft, diffusely tender and mildly distended, with good bowel sounds. There are no palpable pulsatile masses or hepatosplenomegaly. There is no guarding, rigidity, or rebound noted. Extremities: No evidence of cyanosis, clubbing, or edema. There are easily palpable peripheral pulses. Skin: warm and dry with good turgor and no rashes. Rectal: Normal rectal tone, no stool present, dark red blood present. emergency department treatment: barrel rifler, IV normal saline bolus, established a second large-bore IV, second IV normal saline bolus given. Type and screen performed. Emergency Department course: The patient was evaluated in room A-9. Complete history and physical was performed. The patient was typed and screened for blood. A second large-bore IV lock was initiated. An order was placed for continuous cardiac monitoring. The patient was in a normal sinus rhythm at a rate of 97. Patient became hypotensive and was given a second bolus of IV normal saline. He had no further episodes of bloody bowel movements. His blood pressure responded nicely to crystalloid therapy. I did repeat his hemoglobin and it remained nearly the same. I discussed the case with the [facility] hospitalist. I have personally spent greater than 45minutes of critical care time in the direct management of this patient. This includes bedside care, interpretation of diagnostic studies, and testing, discussion with consultants, patient, and family members, and other required patient management activities. This 45 minutes is in excess of all separately billable procedures. Past Med/Surg History Problem List Acute hypotension (Acute) Acute GI bleeding (Acute) GI bleed Left foot pain Cellulitis (Acute) Hypercapnic respiratory failure Interstitial lung disease Abnormal diffusion capacity determined by pulmonary function test Restrictive lung disease Dyslipidemia (Chronic) Depression (Chronic) GERD (gastroesophageal reflux disease) (Chronic) GRACIE (obstructive sleep apnea) (Chronic) Migraine headache (Chronic) Migraine (Chronic) Hypoxia (Chronic) Acute and chronic respiratory failure with hypoxia S/P tonsillectomy (Chronic) H/O colonoscopy (Chronic) History of back surgery (Chronic) S/P nasal surgery (Chronic) Medical History (Updated 05/01/24 @ 08:39 by Jessica Tariq DO) Pneumonitis Hx of renal calculi Family History Other Cancer Diabetes Heart disease Lung disease Social History Smoking Status: Former smoker Second Hand Exposure: No; Do You Dip or Chew Tobacco: No; Hx Alcohol Use: No Hx Substance Use: No Preferred Language: Tamazight Communication Ability: Effective Desk 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 Required: No Beliefs That Will Affect Care: None marital status: Current Living Situation: Spouse current occupational status: unemployed Feels Safe at Home: Yes Assistive Devices: Cane, Denture - Upper, Denture - Lower, Glasses and Walker Allergies Allergies Allergy/AdvReac Type Severity Reaction Status Date / Time levetiracetam [From [facility]] Allergy tongue Verified 04/30/24 12:54 edema morphine AdvReac Unknown Vomiting Verified 04/30/24 12:54 Home Meds Home Medications Medication Instructions Recorded Confirmed albuterol sulfate 90 mcg/actuation 2 puff inhalation Q4H PRN 04/30/24 04/30/24 aerosol inhaler Shortness Of Breath Or Wheezing amitriptyline 50 mg tablet 75 mg PO HS 04/30/24 04/30/24 aspirin 81 mg tablet,delayed 81 mg PO DAILY 04/30/24 04/30/24 release cyclobenzaprine 5 mg tablet 2.5 mg PO HS PRN Spasms 04/30/24 04/30/24 famotidine 20 mg tablet 20 mg PO DAILY 04/30/24 04/30/24 furosemide 20 mg tablet 20 mg PO DAILY 04/30/24 04/30/24 gabapentin 100 mg capsule 100 mg PO UD 04/30/24 04/30/24 ipratropium 20 mcg-albuterol 100 1 puff inhalation Q4H PRN 04/30/24 04/30/24 mcg/actuation mist for inhalation Shortness Of Breath Or Wheezing (Combivent Respimat) metoprolol succinate 25 mg 25 mg PO BID 04/30/24 04/30/24 tablet,extended release 24 hr mometasone-formoterol HFA 200 2 puff inhalation BID 04/30/24 04/30/24 mcg-5 mcg/actuation aerosol inhaler (Dulera) montelukast 10 mg tablet 10 mg PO DAILY 04/30/24 04/30/24 paroxetine HCl 40 mg tablet 40 mg PO DAILY 04/30/24 04/30/24 potassium chloride 10 mEq 10 meq PO DAILY 04/30/24 04/30/24 tablet,extended release(part/cryst) pravastatin 40 mg tablet 40 mg PO HS 04/30/24 04/30/24 primidone 50 mg tablet 50 mg PO BID 04/30/24 04/30/24 spironolactone 25 mg tablet 25 mg PO DAILY 04/30/24 04/30/24 umeclidinium 62.5 mcg/actuation 1 inh inhalation DAILY 04/30/24 04/30/24 blister powder for inhalation (Incruse Ellipta) varenicline 1 mg tablet 1 mg PO BID 04/30/24 04/30/24 Results & Data (ED) Vital Signs Vital Signs - 24 hr 04/30/24 04:12 04/30/24 04:14 04/30/24 04:21 Temperature 36.2 C L Temperature Source Oral Pulse Rate 84 97 H 100 H Pulse Rate from SpO2 Sensor Pulse Rhythm Regular Respiratory Rate 16 16 Respiratory Effort / Characteristics Non-Labored Respiratory Depth Normal Respiratory Pattern Regular Blood Pressure 94/65 L Blood Pressure Mean 74 Pulse Oximetry 100 99 Oxygen Delivery Method Room Air Room Air Sepsis Recent Fever Within 48 Hours No Sepsis New/Unexplained Change in Mental Status N/A Sepsis Action Taken by Nursing No Action Required 04/30/24 05:06 04/30/24 05:15 04/30/24 05:31 Temperature Temperature Source Pulse Rate 94 H 96 H 88 Pulse Rate from SpO2 Sensor 95 H 95 H Pulse Rhythm Respiratory Rate 20 20 16 Respiratory Effort / Characteristics Respiratory Depth Respiratory Pattern Blood Pressure 89/69 L 83/61 L 102/69 Blood Pressure Mean 75 68 82 Pulse Oximetry 100 99 100 Oxygen Delivery Method Sepsis Recent Fever Within 48 Hours Sepsis New/Unexplained Change in Mental Status Sepsis Action Taken by Nursing Laboratory Data 05/01/24 05:38 05/01/24 05:38 Lab Results 04/30/24 04/30/24 04/30/24 Range/Units 04:07 04:20 04:28 WBC 19.26 H (4.8-10.8) K/ul RBC 3.72 L (4.70-6.10) M/uL Hgb 11.2 L (14.0-18.0) g/dl POC Hgb 10.5 L (14.0-18.0) g/dl Hct 34.3 L (42.0-52.0) % POC Hct 31 L (42-52) % MCV 92.2 (80.0-100.0) fL MCH 30.1 (25.0-34.0) pg MCHC 32.7 (32.0-36.0) g/dL RDW Std Deviation 42.0 (36.4-46.3) fL RDW Coeff of Riley 12.4 (11.5-14.5) % Plt Count 213 (130-400) K/uL MPV 11.2 (9.4-12.4) fL Neutrophils % (Manual) 69 % Lymphocytes % (Manual) 19 % Monocytes % (Manual) 12 % Neutrophils # (Manual) 13.29 H (1.40-6.50) K/uL Total Absolute Neuts 13.29 H (1.4-6.5) K/uL Lymphocytes # (Manual) 3.66 H (1.2-3.4) K/uL Total Abs Lymphocytes 3.66 H (1.2-3.4) K/uL Monocytes # (Manual) 2.31 H (0.11-0.59) K/uL PT Cancelled INR Cancelled APTT Cancelled PTT Ratio Cancelled POC Sodium 136 (135-144) mmol/L Sodium 137 (136-145) mmol/L POC Potassium 6.6 H* (3.3-5.0) mmol/L Potassium 5.0 (3.5-5.1) mmol/L POC Chloride 104 (101-112) mmol/L Chloride 100 (98-107) mmol/L Carbon Dioxide 28 (21-32) mmol/L POC Total CO2 27 (24-31) mmol/L Anion Gap 9 (3-11) POC Anion Gap 13.0 L (16-25) mmol/L POC BUN 57 H (7-18) mg/dl BUN 43 H (6-23) mg/dl Creatinine 1.38 (0.6-1.4) mg/dl POC Creatinine 1.3 (0.6-1.3) mg/dl Est Cr Clr Drug Dosing 66.8 ml/min Est GFR ( Amer) 64.4 ml/min Est GFR (Non-Af Amer) 55.6 ml/min BUN/Creatinine Ratio 31.2 H (10-20) Glucose 169 H (70-99(Fasting)) mg/dl POC Glucose (other) 122 H (70-99) mg/dl Calcium 9.2 (8.6-10.3) mg/dl POC Ioniz Calcium Terri 1.06 L (1.12-1.32) mmol/l Total Bilirubin 0.5 (0.2-1.0) mg/dl AST 30 (13-39) U/L ALT 31 (7-52) U/L Alkaline Phosphatase 81 (34-104) U/L Troponin I High Sens 3.1 (0-20) pg/ml Total Protein 7.1 (6.0-8.3) gm/dl Albumin 3.9 (3.4-5.0) gm/dl Globulin 3.2 (2.5-4.0) gm/dl Albumin/Globulin Ratio 1.2 (0.9-2) Blood Type O Negative Antibody Screen NEGATIVE 04/30/24 04/30/24 Range/Units 05:16 05:33 WBC (4.8-10.8) K/ul RBC (4.70-6.10) M/uL Hgb 11.1 L (14.0-18.0) g/dl POC Hgb (14.0-18.0) g/dl Hct 33.6 L (42.0-52.0) % POC Hct (42-52) % MCV (80.0-100.0) fL MCH (25.0-34.0) pg MCHC (32.0-36.0) g/dL RDW Std Deviation (36.4-46.3) fL RDW Coeff of Riley (11.5-14.5) % Plt Count (130-400) K/uL MPV (9.4-12.4) fL Neutrophils % (Manual) % Lymphocytes % (Manual) % Monocytes % (Manual) % Neutrophils # (Manual) (1.40-6.50) K/uL Total Absolute Neuts (1.4-6.5) K/uL Lymphocytes # (Manual) (1.2-3.4) K/uL Total Abs Lymphocytes (1.2-3.4) K/uL Monocytes # (Manual) (0.11-0.59) K/uL PT 11.8 INR 1.1 APTT 23 PTT Ratio 0.9 POC Sodium (135-144) mmol/L Sodium (136-145) mmol/L POC Potassium (3.3-5.0) mmol/L Potassium (3.5-5.1) mmol/L POC Chloride (101-112) mmol/L Chloride (98-107) mmol/L Carbon Dioxide (21-32) mmol/L POC Total CO2 (24-31) mmol/L Anion Gap (3-11) POC Anion Gap (16-25) mmol/L POC BUN (7-18) mg/dl BUN (6-23) mg/dl Creatinine (0.6-1.4) mg/dl POC Creatinine (0.6-1.3) mg/dl Est Cr Clr Drug Dosing ml/min Est GFR ( Amer) ml/min Est GFR (Non-Af Amer) ml/min BUN/Creatinine Ratio (10-20) Glucose (70-99(Fasting)) mg/dl POC Glucose (other) (70-99) mg/dl Calcium (8.6-10.3) mg/dl POC Ioniz Calcium Terri (1.12-1.32) mmol/l Total Bilirubin (0.2-1.0) mg/dl AST (13-39) U/L ALT (7-52) U/L Alkaline Phosphatase (34-104) U/L Troponin I High Sens (0-20) pg/ml Total Protein (6.0-8.3) gm/dl Albumin (3.4-5.0) gm/dl Globulin (2.5-4.0) gm/dl Albumin/Globulin Ratio (0.9-2) Blood Type Antibody Screen Administered Medications Amitriptyline HCl (Amitriptyline Hcl 25 Mg Tab) 75 mg PO HS ROBERTA Stop: 05/30/24 20:59 Last Admin: 04/30/24 20:19 Dose: 75 mg Documented By: TORIBIO Famotidine (Famotidine 20 Mg Tab) 20 mg PO DAILY ROBERTA Stop: 05/30/24 09:59 Last Admin: 04/30/24 10:42 Dose: 20 mg Documented By: LACI Fluticasone/Vilanterol (Fluticasone/Vilanterol 100/25mcg 14 Puffs/Inhaler) 1 puffs INH DAILY ROBERTA Stop: 05/30/24 10:14 Last Admin: 04/30/24 10:52 Dose: 1 puffs Documented By: LACI Furosemide (Furosemide 20 Mg Tab) 20 mg PO DAILY ROBERTA Stop: 05/30/24 09:59 Last Admin: 04/30/24 10:42 Dose: Not Given Documented By: LACI Gabapentin (Gabapentin 100 Mg Cap) 100 mg PO BID@0900,1200 ROBERTA Stop: 05/30/24 09:59 Last Admin: 04/30/24 11:02 Dose: Not Given Documented By: LACI Gabapentin (Gabapentin 100 Mg Cap) 200 mg PO HS ROBERTA Stop: 05/30/24 20:59 Last Admin: 04/30/24 20:20 Dose: 200 mg Documented By: TORIBIO Sodium Chloride (Nss) 1,000 mls @ 75 mls/hr IV .[id number] ROBERTA Stop: 05/30/24 07:59 Last Admin: 04/30/24 20:17 Dose: 75 mls/hr Documented By: Infusion: 04/30/24 20:17 Dose: Infused Documented By: Admin: 04/30/24 08:26 Dose: 75 mls/hr Documented By: LACI Pantoprazole Sodium 40 mg/ (Dextrose) 100 mls @ 20 mls/hr IV Q5H ROBERTA Stop: 05/30/24 08:29 Last Admin: 05/01/24 06:35 Dose: 8 mg/hr, 20 mls/hr Documented By: Infusion: 05/01/24 06:35 Dose: Infused Documented By: Admin: 05/01/24 01:46 Dose: 8 mg/hr, 20 mls/hr Documented By: Infusion: 05/01/24 01:16 Dose: Infused Documented By: Admin: 04/30/24 20:16 Dose: 8 mg/hr, 20 mls/hr Documented By: Infusion: 04/30/24 20:16 Dose: Infused Documented By: Admin: 04/30/24 16:16 Dose: 8 mg/hr, 20 mls/hr Documented By: Infusion: 04/30/24 15:15 Dose: Infused Documented By: Admin: 04/30/24 08:43 Dose: 8 mg/hr, 20 mls/hr Documented By: LACI Insulin Aspart (Insulin Aspart Per Unit Charge) 0 units SC [facility] ROBERTA Stop: 05/30/24 11:59 Last Admin: 04/30/24 20:19 Dose: Not Given Documented By: TORIBIO Metoprolol Succinate (Metoprolol Succ 25mg Ext Rel Tab) 25 mg PO BID ROBERTA Stop: 05/30/24 09:59 Last Admin: 04/30/24 20:20 Dose: 25 mg Documented By: Admin: 04/30/24 10:42 Dose: Not Given Documented By: LACI Montelukast Sodium (Montelukast Sodium 10 Mg Tablet) 10 mg PO DAILY ROBERTA Stop: 05/30/24 09:59 Last Admin: 04/30/24 10:42 Dose: 10 mg Documented By: LACI Paroxetine HCl (Paroxetine Hcl 20 Mg Tab) 40 mg PO DAILY ROBERTA Stop: 05/30/24 09:59 Last Admin: 04/30/24 10:42 Dose: 40 mg Documented By: LACI Pravastatin Sodium (Pravastatin Sod 40 Mg Tab) 40 mg PO HS [facility] Stop: 05/30/24 20:59 Last Admin: 04/30/24 20:19 Dose: 40 mg Documented By: TORIBIO Primidone (Primidone 50 Mg Tab) 50 mg PO BID ROBERTA Stop: 05/30/24 09:59 Last Admin: 04/30/24 20:20 Dose: 50 mg Documented By: Admin: 04/30/24 10:42 Dose: 50 mg Documented By: LACI Spironolactone (Spironolactone 25 Mg Tab) 25 mg PO DAILY ROBERTA Stop: 05/30/24 09:59 Last Admin: 04/30/24 10:43 Dose: Not Given Documented By: LACI Umeclidinium [place] (Umeclidinium [place] 62.5mcg/Blister 7 Puffs/Inhaler) 1 puffs INH DAILY ROBERTA Stop: 05/30/24 09:59 Last Admin: 04/30/24 10:52 Dose: 1 puffs Documented By: LACI Discontinued Medications Sodium Chloride (Nss) 500 mls @ 999 mls/hr IV .Q31M ROBERTA Stop: 04/30/24 05:00 Last Infusion: 04/30/24 05:50 Dose: Infused Documented By: [facility] Admin: 04/30/24 05:03 Dose: 999 mls/hr Documented By: [facility] Sodium Chloride (Nss) 500 mls @ 999 mls/hr IV .Q31M ONE Stop: 04/30/24 06:42 Last Infusion: 04/30/24 06:45 Dose: Infused Documented By: [facility] Admin: 04/30/24 06:14 Dose: 999 mls/hr Documented By: [facility] Pantoprazole Sodium 80 mg/ (Dextrose) 120 mls @ 480 mls/hr IV NOW ONE Stop: 04/30/24 08:29 Last Infusion: 04/30/24 08:45 Dose: Infused Documented By: Admin: 04/30/24 08:26 Dose: 480 mls/hr Documented By: LACI Sodium Chloride (Nss) 500 mls @ 15 mls/hr IV .Q24H ROBERTA Stop: 05/01/24 07:29 Last Admin: 04/30/24 18:44 Dose: Not Given Documented By: Insulin Aspart (Insulin Aspart Per Unit Charge) 0 units SC Q6 ROBERTA Stop: 05/30/24 11:59 Last Admin: 04/30/24 17:03 Dose: Not Given Documented By: Co-signed By: DAVID Admin: 04/30/24 12:59 Dose: Not Given Documented By: [facility] Co-signed By: LACI Lidocaine HCl (Lidocaine 2% 2 Ml Vial/Amp(20mg/Ml)) Confirm Administered Dose 4 ml INFIL .STK-MED ONE Stop: 04/30/24 13:47 Last Admin: 04/30/24 18:45 Dose: Not Given Documented By: ALEXIS Metoclopramide HCl (Metoclopramide Hcl Inj 5 Mg/Ml 2 Ml Vial) 10 mg IV NOW STA Stop: 04/30/24 13:07 Last Admin: 04/30/24 18:44 Dose: Not Given Documented By: ALEXIS Pneumococcal 20-Valent Conj Vacc (Pneumococcal Vaccine (Pcv20) 20-Cece Conj-Dip Crm/Pf 0.5 Ml Syr) 0.5 ml IM .ONCE ONE Stop: 04/30/24 18:12 Last Admin: 04/30/24 20:23 Dose: Not Given Documented By: TORIBIO Potassium Chloride (Potassium Chloride 10 Meq Tabcr) 10 meq PO DAILY ROBERTA Stop: 05/30/24 09:59 Last Admin: 04/30/24 10:45 Dose: Not Given Documented By: LACI Propofol (Propofol Iv Emulsion 10 Mg/Ml 20 Ml Vial) Confirm Administered Dose 200 mg IV .STK-MED ONE Stop: 04/30/24 13:47 Last Admin: 04/30/24 18:45 Dose: Not Given Documented By: ALEXIS Discharge Plan Visit Data Chief Complaint: Rectal Bleed Stated Complaint: RECTAL BLEED ED Provider: Jessica Tariq Discharge Problem: Acute GI bleeding, Acute hypotension Patient Disposition: Admitted As Inpatient Discharge Instructions Interventions: ED Discharge Assessment Last Done: 04/30/24 09:26
[2024-04-30 04:41] LABS: iSTAT Creatinine 1.3 mg/dl (0.6-1.3); iSTAT Hemoglobin 10.5 g/dl (14.0-18.0); iSTAT Ionized Calcium 1.06 mmol/l (1.12-1.32); iSTAT Potassium 6.6 mmol/L (3.3-5.0)
[2024-04-30 04:44] LABS: Hematocrit (blood only) 34.3 % (42.0-52.0); Hemoglobin 11.2 g/dl (14.0-18.0); Mean Corpuscular Hemoglobin 30.1 pg (25.0-34.0); Mean Corpuscular Hgb Conc 32.7 g/dL (32.0-36.0); Mean Corpuscular Volume 92.2 fL (80.0-100.0); Mean Platelet Volume 11.2 fL (9.4-12.4); Platelet Count 213 K/uL (130-400); RDW Coefficient of Variation 12.4 % (11.5-14.5); Red Blood Count 3.72 M/uL (4.70-6.10); White Blood Count 19.26 K/ul (4.8-10.8)
[2024-04-30 05:00] LABS: Albumin Globulin Ratio 1.2 (0.9-2); Albumin Level 3.9 gm/dl (3.4-5.0); BUN Creatinine Ratio 31.2 (10-20); Bilirubin,Total 0.5 mg/dl (0.2-1.0); Calcium 9.2 mg/dl (8.6-10.3); Creatinine Clr Calc Pharmacy 66.8 ml/min; Est GFR (African American) 64.4 ml/min; Est GFR (Non-African American) 55.6 ml/min; Globulin 3.2 gm/dl (2.5-4.0); Total Protein 7.1 gm/dl (6.0-8.3)
[2024-04-30] MEDS: SODIUM CHLORIDE 0.9% 500 ML IV SCH ×2 (05:03→18:44)
[2024-04-30 05:49] LABS: ALC (manual) 3.66 K/uL (1.2-3.4); ANC (manual) 13.29 K/uL (1.4-6.5); Lymphocytes # (manual) 3.66 K/uL (1.2-3.4); Lymphocytes % (manual) 19 %; Monocytes # (manual) 2.31 K/uL (0.11-0.59); Monocytes % (manual) 12 %; Neutrophils # (manual) 13.29 K/uL (1.40-6.50); Neutrophils % (manual) 69 %
[2024-04-30 05:52] LABS: Hematocrit (blood only) 33.6 % (42.0-52.0); Hemoglobin 11.1 g/dl (14.0-18.0)
[2024-04-30 05:59] LABS: Troponin I High Sensitivity 3.1 pg/ml (0-20)
[2024-04-30 06:09] LABS: INR 1.1 (0.9-1.1); Partial Thromboplastin Ratio 0.9; Partial Thromboplastin Time 23 Seconds (21-31); Prothrombin Time 11.8 Seconds (9.0-12.0)
[2024-04-30] MEDS: SODIUM CHLORIDE 0.9% 500 ML IV ONE (06:14)
--- NOTE | 2024-04-30 07:22 | Electrocardiogram Report ---
Test Reason : Blood Pressure : / mmHG Vent. Rate : 098 BPM Atrial Rate : 098 BPM P-R Int : 188 ms QRS Dur : 078 ms QT Int : 360 ms P-R-T Axes : 019 056 021 degrees QTc Int : 459 ms Normal sinus rhythm Normal ECG When compared with ECG of 04-NOV-2019 21:59, T wave inversion no longer evident in Anterior leads Confirmed by Edin Madera ([id number]) on 04/30/2024 7:22:32 AM Referred By: REFERRED SELF Confirmed By:Andrew Madera
[2024-04-30] MEDS ORDERED: PANTOPRAZOLE BOLUS/DRIP IV STA (08:00)
--- NOTE | 2024-04-30 08:16 | History & Physical Report ---
Date of Service April 30, 2024 Assessment & Plan (1) GI bleed: Plan: 58-year-old male with past medical history significant for type 2 diabetes currently not on medications, hyperlipidemia, chronic respiratory failure with hypoxia on home oxygen, obstructive sleep apnea on CPAP, history of hypersensitive pneumonitis, COPD, moderate persistent asthma, chronic right- sided heart rate, GERD, hepatitis steatosis, restless leg syndrome, left avascular necrosis of femoral head, migraine with aura, essential tremor, depression, tobacco use disorder presents with GI bleed. Patient woke up last night with abdominal cramps and had an episode of blood per rectum. He had few more episodes which also had black and bloody stools. Currently no abdominal pain. Since he came to the ER no more episodes. Denies any chest pain. No shortness of breath. Currently no cough. No fevers. No headache. When this episodes were happening he felt dizzy. No blurred vision. No sore throat. Micturating okay. Currently hemodynamics are okay. Never had GI bleed in the past.Patient had an episode of shaking when EMS was transferring him, no loss of consciousness and at the time lights were bothering him. Patient states he had this episodes of shaking spells going on for couple of years now. GI bleed Black stools and blood per rectum Hemoglobin 11.2 Holding aspirin Blood consent obtained H&H every 6 hours Protonix drip Gentle fluids Telemetry Close monitor hemodynamics GI consult History of type 2 diabetes Seems not on medications Sliding scale Follow HbA1c and blood sugars History of COPD Chronic respiratory failure on 2 L oxygen Moderate persistent asthma History of hypersensitive pneumonitis Continue home inhalers Nebs as needed Obstructive sleep apnea CPAP nightly Chronic right-sided heart failure Getting gentle fluids Continue home Lasix and spironolactone Monitor for volume overload Essential tremor On primidone Restless leg syndrome On gabapentin Shaking episodes As per neurology notes States patient has Episodes of jerks and dropping objects which Neurology thinks mostly myoclonus and EEG was done which was unremarkable. Neurology was contemplating starting low-dose Keppra if Patient develops more protracted episodes of clear-cut myoclonus. Hyperlipidemia On statin Hypertension On metoprolol succinate and diuretics Monitor hemodynamics Depression On paroxetine and amitriptyline DVT prophylaxis SCDs Disposition Telemetry Full code. History of Present Illness Chief Complaint: GI bleed Primary Care Provider: Jose Armando Veloz MD 58-year-old male with past medical history significant for type 2 diabetes currently not on medications, hyperlipidemia, chronic respiratory failure with hypoxia on home oxygen, obstructive sleep apnea on CPAP, history of hypersensitive pneumonitis, COPD, moderate persistent asthma, chronic right- sided heart rate, GERD, hepatitis steatosis, restless leg syndrome, left avascular necrosis of femoral head, migraine with aura, essential tremor, depression, tobacco use disorder presents with GI bleed. Patient woke up last night with abdominal cramps and had an episode of blood per rectum. He had few more episodes which also had black and bloody stools. Currently no abdominal pain. Since he came to the ER no more episodes. Denies any chest pain. No shortness of breath. Currently no cough. No fevers. No headache. When this episodes were happening he felt dizzy. No blurred vision. No sore throat. Mi cturating okay. Currently hemodynamics are okay. Never had GI bleed in the past.Patient had an episode of shaking when EMS was transferring him, no loss of consciousness and at the time lights were bothering him. Patient states he had this episodes of shaking spells going on for couple of years now. Past medical history. As mentioned above Past surgical history. Colonoscopy and EGD. EGD with endoscopic ultrasound. Lithotripsy. Repair of broken nose. Ureteral stent placement. Tonsillectomy. Injection of sacral iliac joint Social history. . Quit smoking in 2019. Note 1 pack a day for 42 years. No alcohol use. Currently no drug use. Family history. Mother had COPD. Father had diabetes. Hypertension. Fatal AR/stroke at age 79. Brother had heart attack. Brother had lung cancer. Sister had lung cancer. History of COPD. Allergies Allergy/AdvReac Type Severity Reaction Status Date / Time levetiracetam [From [facility]] Allergy tongue Verified 12/28/23 16:34 edema morphine AdvReac Unknown Vomiting Verified 12/28/23 15:58 Home Medications Medication Instructions Recorded Confirmed Type albuterol sulfate 90 mcg/actuation 2 puff inhalation Q4H PRN 04/30/24 04/30/24 History aerosol inhaler Shortness Of Breath Or Wheezing amitriptyline 50 mg tablet 75 mg PO HS 04/30/24 04/30/24 History aspirin 81 mg tablet,delayed 81 mg PO DAILY 04/30/24 04/30/24 History release cyclobenzaprine 5 mg tablet 2.5 mg PO HS PRN Spasms 04/30/24 04/30/24 History famotidine 20 mg tablet 20 mg PO DAILY 04/30/24 04/30/24 History furosemide 20 mg tablet 20 mg PO DAILY 04/30/24 04/30/24 History gabapentin 100 mg capsule 100 mg PO UD 04/30/24 04/30/24 History ipratropium 20 mcg-albuterol 100 1 puff inhalation Q4H PRN 04/30/24 04/30/24 History mcg/actuation mist for inhalation Shortness Of Breath Or Wheezing (Combivent Respimat) metoprolol succinate 25 mg 25 mg PO BID 04/30/24 04/30/24 History tablet,extended release 24 hr mometasone-formoterol HFA 200 2 puff inhalation BID 04/30/24 04/30/24 History mcg-5 mcg/actuation aerosol inhaler (Dulharjinder) montelukast 10 mg tablet 10 mg PO DAILY 04/30/24 04/30/24 History paroxetine HCl 40 mg tablet 40 mg PO DAILY 04/30/24 04/30/24 History potassium chloride 10 mEq 10 meq PO DAILY 04/30/24 04/30/24 History tablet,extended release(part/cryst) pravastatin 40 mg tablet 40 mg PO HS 04/30/24 04/30/24 History primidone 50 mg tablet 50 mg PO BID 04/30/24 04/30/24 History spironolactone 25 mg tablet 25 mg PO DAILY 04/30/24 04/30/24 History umeclidinium 62.5 mcg/actuation 1 inh inhalation DAILY 04/30/24 04/30/24 History blister powder for inhalation (Incruse Ellipta) varenicline 1 mg tablet 1 mg PO BID 04/30/24 04/30/24 History Past Med/Surg History Problem List (Updated 02/03/24 @ 00:10 by Background Daemon) GI bleed Left foot pain Cellulitis (Acute) Hypercapnic respiratory failure Interstitial lung disease Abnormal diffusion capacity determined by pulmonary function test Restrictive lung disease Dyslipidemia (Chronic) Depression (Chronic) GERD (gastroesophageal reflux disease) (Chronic) GRACIE (obstructive sleep apnea) (Chronic) Migraine headache (Chronic) Migraine (Chronic) Hypoxia (Chronic) Acute and chronic respiratory failure with hypoxia S/P tonsillectomy (Chronic) H/O colonoscopy (Chronic) History of back surgery (Chronic) S/P nasal surgery (Chronic) Medical History (Updated 04/30/24 @ 08:22 by Javier Montesinos MD) Pneumonitis Hx of renal calculi Family History Other Cancer Diabetes Heart disease Lung disease Social History Smoking Status: Former smoker Second Hand Exposure: No; Do You Dip or Chew Tobacco: No; Hx Alcohol Use: Yes Alcohol type: beer Hx Substance Use: No Preferred Language: Citizen Of [place] Communication Ability: Effective Privacy Officer Required: No Beliefs That Will Affect Care: None marital status: Current Living Situation: Spouse current occupational status: unemployed Feels Safe at Home: Yes Assistive Devices: Cane and Walker Review of Systems Review of Systems: All systems reviewed & are unremarkable except as noted in HPI & below Physical Exam Physical Exam: General- Not in distress Head- atraumatic Eyes- PERRL. ENT- oropharynx clear Neck- supple, no JVD. Lungs- clear to auscultation no wheezing or crackles Heart- regular rhythm; no murmur, no gallop. Abdomen- normal bowel sounds, soft, nontender, no distension Extremities- no pretibial edema, no erythema seen Neuro- alert, oriented PERRL, EOMI; no facial palsy; no dysarthria; moves extremities. Skin- warm & dry Results & Data Results & Data Vital Signs (Past 12 Hours) Vital Signs Temp Pulse Resp BP BP Pulse Ox O2 Del Method 04/30/24 07:03 97/69 L 04/30/24 06:00 88 18 111/68 98 Nasal Cannula 04/30/24 05:48 91 H 22 96/65 L 99 Nasal Cannula 04/30/24 05:47 96/65 L 04/30/24 05:31 88 16 102/69 100 04/30/24 05:15 96 H 20 83/61 L 99 04/30/24 05:06 94 H 20 89/69 L 100 04/30/24 04:21 100 H 16 99 Room Air 04/30/24 04:14 97 H 04/30/24 04:12 36.2 C L 84 16 94/65 L 100 Room Air O2 Flow Rate 04/30/24 07:03 04/30/24 06:00 2 04/30/24 05:48 2 04/30/24 05:47 04/30/24 05:31 04/30/24 05:15 04/30/24 05:06 04/30/24 04:21 04/30/24 04:14 04/30/24 04:12 Diagnostic Findings Laboratory Results WBC 19.26 K/ul (4.8-10.8) H 04/30/24 04:07 RBC 3.72 M/uL (4.70-6.10) L 04/30/24 04:07 Hgb 11.1 g/dl (14.0-18.0) L 04/30/24 05:33 POC Hgb 10.5 g/dl (14.0-18.0) L 04/30/24 04:28 Hct 33.6 % (42.0-52.0) L 04/30/24 05:33 POC Hct 31 % (42-52) L 04/30/24 04:28 MCV 92.2 fL (80.0-100.0) 04/30/24 04:07 MCH 30.1 pg (25.0-34.0) 04/30/24 04:07 MCHC 32.7 g/dL (32.0-36.0) 04/30/24 04:07 RDW Std Deviation 42.0 fL (36.4-46.3) 04/30/24 04:07 RDW Coeff of Riley 12.4 % (11.5-14.5) 04/30/24 04:07 Plt Count 213 K/uL (130-400) 04/30/24 04:07 MPV 11.2 fL (9.4-12.4) 04/30/24 04:07 Neutrophils % (Manual) 69 % 04/30/24 04:07 Lymphocytes % (Manual) 19 % 04/30/24 04:07 Monocytes % (Manual) 12 % 04/30/24 04:07 Neutrophils # (Manual) 13.29 K/uL (1.40-6.50) H 04/30/24 04:07 Total Absolute Neuts 13.29 K/uL (1.4-6.5) H 04/30/24 04:07 Lymphocytes # (Manual) 3.66 K/uL (1.2-3.4) H 04/30/24 04:07 Total Abs Lymphocytes 3.66 K/uL (1.2-3.4) H 04/30/24 04:07 Monocytes # (Manual) 2.31 K/uL (0.11-0.59) H 04/30/24 04:07 PT 11.8 Seconds (9.0-12.0) 04/30/24 05:16 INR 1.1 (0.9-1.1) 04/30/24 05:16 APTT 23 Seconds (21-31) 04/30/24 05:16 PTT Ratio 0.9 04/30/24 05:16 POC Sodium 136 mmol/L (135-144) 04/30/24 04:28 Sodium 137 mmol/L (136-145) 04/30/24 04:07 POC Potassium 6.6 mmol/L (3.3-5.0) H* 04/30/24 04:28 Potassium 5.0 mmol/L (3.5-5.1) 04/30/24 04:07 POC Chloride 104 mmol/L (101-112) 04/30/24 04:28 Chloride 100 mmol/L (98-107) 04/30/24 04:07 Carbon Dioxide 28 mmol/L (21-32) 04/30/24 04:07 POC Total CO2 27 mmol/L (24-31) 04/30/24 04:28 Anion Gap 9 (3-11) 04/30/24 04:07 POC Anion Gap 13.0 mmol/L (16-25) L 04/30/24 04:28 POC BUN 57 mg/dl (7-18) H 04/30/24 04:28 BUN 43 mg/dl (6-23) H 04/30/24 04:07 Creatinine 1.38 mg/dl (0.6-1.4) 04/30/24 04:07 POC Creatinine 1.3 mg/dl (0.6-1.3) 04/30/24 04:28 Est Cr Clr Drug Dosing 66.8 ml/min 04/30/24 04:07 Est GFR ( Amer) 64.4 ml/min 04/30/24 04:07 Est GFR (Non-Af Amer) 55.6 ml/min 04/30/24 04:07 BUN/Creatinine Ratio 31.2 (10-20) H 04/30/24 04:07 Glucose 169 mg/dl (70-99(Fasting)) H 04/30/24 04:07 POC Glucose (other) 122 mg/dl (70-99) H 04/30/24 04:28 Calcium 9.2 mg/dl (8.6-10.3) 04/30/24 04:07 POC Ioniz Calcium Terri 1.06 mmol/l (1.12-1.32) L 04/30/24 04:28 Total Bilirubin 0.5 mg/dl (0.2-1.0) 04/30/24 04:07 AST 30 U/L (13-39) 04/30/24 04:07 ALT 31 U/L (7-52) 04/30/24 04:07 Alkaline Phosphatase 81 U/L (34-104) 04/30/24 04:07 Troponin I High Sens 3.1 pg/ml (0-20) 04/30/24 04:07 Total Protein 7.1 gm/dl (6.0-8.3) 04/30/24 04:07 Albumin 3.9 gm/dl (3.4-5.0) 04/30/24 04:07 Globulin 3.2 gm/dl (2.5-4.0) 04/30/24 04:07 Albumin/Globulin Ratio 1.2 (0.9-2) 04/30/24 04:07 Blood Type O Negative 04/30/24 04:20 Antibody Screen NEGATIVE 04/30/24 04:20 Code Status & VTE Plan VTE Prophylaxis Plan VTE Prophylaxis will be ordered: Yes
[2024-04-30] MEDS: SODIUM CHLORIDE 0.9% 1,000 ML IV SCH (08:26)
[2024-04-30] MEDS: PANTOprazole 80 MG in DEXTROSE 5% 100 ML IV ONE (08:26)
[2024-04-30] MEDS: PANTOprazole 40 MG in DEXTROSE 5% MINI-B 100 ML IV SCH (08:43)
[2024-04-30 08:56] LABS: Hematocrit (blood only) 29.4 % (42.0-52.0); Hemoglobin 9.8 g/dl (14.0-18.0)
[2024-04-30] MEDS ORDERED: GLUCOSE 40% GEL 15 GM TUBE PO PRN (09:26)
[2024-04-30] MEDS ORDERED: ALBUTEROL HFA 8 GM INHALER INH PRN (09:26)
[2024-04-30] MEDS ORDERED: GLUCOSE 10 TAB/TUBE PO PRN (09:26)
[2024-04-30] MEDS ORDERED: LEVALBUTEROL 1.25 MG/3 ML NEB NEB PRN (09:26)
[2024-04-30] MEDS ORDERED: ONDANSETRON INJ 2 MG/ML 2 ML VIAL IV PRN (09:26)
[2024-04-30] MEDS ORDERED: DEXTROSE 50% 50 ML SYRINGE IV PRN (09:26)
[2024-04-30] MEDS ORDERED: CARBOHYDRATES FOR HYPOGLYCEMIA PO PRN (09:26)
[2024-04-30] MEDS ORDERED: NITROGLYCERIN SL 0.4 MG/TAB TAB SL PRN (09:26)
[2024-04-30] MEDS ORDERED: GLUCAGON FOR INJ 1 MG VIAL SQ PRN (09:26)
[2024-04-30 09:56] LABS: Hematocrit (blood only) 29.2 % (42.0-52.0); Hemoglobin 9.6 g/dl (14.0-18.0)
[2024-04-30 10:32] LABS: Adenovirus F 40/41 PCR Not Detected (NotDetected); Astrovirus PCR Not Detected (NotDetected); Campylobacter PCR Not Detected (NotDetected); Cryptosporidium PCR Not Detected (NotDetected); Cyclospora cayetanensis PCR Not Detected (NotDetected); Entamoeba histolytica PCR Not Detected (NotDetected); Enteroaggregative E.coli(EAEC) Not Detected (NotDetected); Enteropathogenic E.coli (EPEC) Not Detected (NotDetected); Enterotoxigenic E.coli (ETEC) Not Detected (NotDetected); Giardia lamblia PCR Not Detected (NotDetected); Norovirus GI/GII PCR Not Detected (NotDetected); Plesiomonas shigelloides PCR Not Detected (NotDetected); Rotavirus A PCR Not Detected (NotDetected); Salmonella PCR Not Detected (NotDetected); Sapovirus PCR Not Detected (NotDetected); Shiga-like Toxin E.coli (STEC) Not Detected (NotDetected); Shigella/Enteroinvasive E.coli Not Detected (NotDetected); Vibrio cholerae PCR Not Detected (NotDetected); Vibrio species PCR Not Detected (NotDetected); Yersinia enterocolitica PCR Not Detected (NotDetected)
[2024-04-30] MEDS: MONTELUKAST SODIUM 10 MG TABLET PO SCH (10:42)
[2024-04-30] MEDS: FAMOTIDINE 20 MG TAB PO SCH (10:42)
[2024-04-30] MEDS: METOPROLOL SUCC 25MG EXT REL TAB PO SCH (10:42)
[2024-04-30] MEDS: PARoxetine HCL 20 MG TAB PO SCH (10:42)
[2024-04-30] MEDS: FUROSEMIDE 20 MG TAB PO SCH (10:42)
[2024-04-30] MEDS: PRIMIDONE 50 MG TAB PO SCH (10:42)
[2024-04-30] MEDS: SPIRONOLACTONE 25 MG TAB PO SCH (10:43)
[2024-04-30] MEDS: POTASSIUM CHLORIDE 10 MEQ TABCR PO SCH (10:45)
[2024-04-30] MEDS: UMECLIDINIUM BROMIDE 62.5MCG/BLISTER 7 PUFFS/INHALER INH SCH (10:52)
[2024-04-30] MEDS: FLUTICASONE/VILANTEROL 100/25MCG 14 PUFFS/INHALER INH SCH (10:52)
[2024-04-30] MEDS: GABAPENTIN 100 MG CAP PO SCH ×2 (11:02→20:20)
--- NOTE | 2024-04-30 11:02 | XRay Report ---
XR chest 1V portable HISTORY: Congestive heart failure. Shortness of breath. COMPARISON: Chest 11/04/2019. FINDINGS: No pneumothorax. No pleural effusions. S-shaped scoliosis again noted with chest wall defor mities. Left basilar linear densities favor subsegmental atelectasis or scarring. This is similar to the prior study. There is perihilar interstitial/vascular thickening which has progressed. This sugge sts developing pulmonary edema. The heart remains enlarged. No acute fractures. IMPRESSION: Interval progression of the interstitial/vascular thickening with mild cardiomegaly. This suggests de veloping pulmonary edema. ACT 112: Negative or not required by law. Electronically signed by: Adams Burgess M.D. 04/30/2024 11:01 AM
--- NOTE | 2024-04-30 11:05 | Gastrointestinal Consultation ---
Date of Consultation April 30, 2024 Assessment & Plan (1) GI bleed: 58 year old male with history of interstitial lung disease, GRACIE, migraines, dyslipidemia and others below admitted through the ED report of melena and hematochezia x 1 day w/ HGB 9.6 and BUN. He has had soft BP since admission w/ range of SBP 80-90. Repeat K Hold ASA Trend H&H Monitor and document GI output Maintain NPO status IV PPI bolus and drip Tentative EGD today pending repeat K We appreciate assistance in the management of any serological abnormality and corrections to include: hemoglobin >7, INR <2, platelets >50,000, potassium levels >3.5 but <5.3, and sodium levels within 5 points of the reference range prior to endoscopic evaluation. Thank you for allowing us to participate in the care of this patient. Please call with any acute changes, questions or concerns. Please see addendum below with additional recommendation from my supervising physician. I spent a total of 60 minutes on the date of service in review of patient's record, and previously obtained information in person and appropriate medical visit, discussion and education of plan, with patient and/or caregiver, placing orders for tests/referral/procedures as medically necessary and documentation of pertinent clinical information in patient's medical records for their visit today. Supervising Physician Co-Signing Physician Notes I personally saw and examined the patient. I have reviewed the chart and agree with the documentation provided by the CLINICAL DERMATOLOGIST including discussion about the assessment, treatment and plan. Briefly, 58 year old male with history of interstitial lung disease, GRACIE, migraines, dyslipidemia and others below admitted through the ED report of melena and hematochezia x 1 day w/ HGB 9.6 and BUN. He has had soft BP since admission w/ range of SBP 80-90. better after fluids. Some ibuprofen for headaches. DDX: PUD, DU, gastritis or esophagitis. Reglan 10, iv ppi bid, npo, plan for egd today. History of Present Illness Reason for Consultation: GI bleed, black and bloody stools Requesting Physician: Yamel Attending Physician: Javier Montesinos MD History of Present Illness 58 year old male with history of interstitial lung disease, GRACIE, migraines, dyslipidemia and others below admitted through the ED with GI bleeding - GI was asked to evaluate. Pt was seen and evaluated, chart reviewed. Family at bedside. Notes was in his typical state of health until last evening. Developed some nausea, followed by abd cramping. Passed a large amount of soft, black stools. Notes this was followed by two additional episodes of BRBPR which prompted ED Evaluation. In the ED, he was hypotensive w/ SBP range 80/90, w/ leukocytosis at 19, anemia w/ HGB 9.6 and BUN of 43 w/ normal REHABILITATION PROGRAM COORDINATOR. His K on admission was 5 but repeat about 20 minutes later reported at 6.6. No ETOH, No tobacco ASA daily Occasional NSAIDs but not frequent EGD: none Colon: 10 + years ago, due now Allergies Allergy/AdvReac Type Severity Reaction Status Date / Time levetiracetam [From [facility]] Allergy tongue Verified 04/30/24 12:54 edema morphine AdvReac Unknown Vomiting Verified 04/30/24 12:54 Home Medications Medication Instructions Recorded Confirmed Type albuterol sulfate 90 mcg/actuation 2 puff inhalation Q4H PRN 04/30/24 04/30/24 History aerosol inhaler Shortness Of Breath Or Wheezing amitriptyline 50 mg tablet 75 mg PO HS 04/30/24 04/30/24 History aspirin 81 mg tablet,delayed 81 mg PO DAILY 04/30/24 04/30/24 History release cyclobenzaprine 5 mg tablet 2.5 mg PO HS PRN Spasms 04/30/24 04/30/24 History famotidine 20 mg tablet 20 mg PO DAILY 04/30/24 04/30/24 History furosemide 20 mg tablet 20 mg PO DAILY 04/30/24 04/30/24 History gabapentin 100 mg capsule 100 mg PO UD 04/30/24 04/30/24 History ipratropium 20 mcg-albuterol 100 1 puff inhalation Q4H PRN 04/30/24 04/30/24 History mcg/actuation mist for inhalation Shortness Of Breath Or Wheezing (Combivent Respimat) metoprolol succinate 25 mg 25 mg PO BID 04/30/24 04/30/24 History tablet,extended release 24 hr mometasone-formoterol HFA 200 2 puff inhalation BID 04/30/24 04/30/24 History mcg-5 mcg/actuation aerosol inhaler (Dulera) montelukast 10 mg tablet 10 mg PO DAILY 04/30/24 04/30/24 History paroxetine HCl 40 mg tablet 40 mg PO DAILY 04/30/24 04/30/24 History potassium chloride 10 mEq 10 meq PO DAILY 04/30/24 04/30/24 History tablet,extended release(part/cryst) pravastatin 40 mg tablet 40 mg PO HS 04/30/24 04/30/24 History primidone 50 mg tablet 50 mg PO BID 04/30/24 04/30/24 History spironolactone 25 mg tablet 25 mg PO DAILY 04/30/24 04/30/24 History umeclidinium 62.5 mcg/actuation 1 inh inhalation DAILY 04/30/24 04/30/24 History blister powder for inhalation (Incruse Ellipta) varenicline 1 mg tablet 1 mg PO BID 04/30/24 04/30/24 History Patient History Medical History Pneumonitis Hx of renal calculi Family History Other Cancer Diabetes Heart disease Lung disease Social History Smoking Status: Former smoker Second Hand Exposure: No; Do You Dip or Chew Tobacco: No; Hx Alcohol Use: Yes Alcohol type: beer Hx Substance Use: No Preferred Language: Syriac Communication Ability: Effective Tank Welder Required: No Beliefs That Will Affect Care: None marital status: Current Living Situation: Spouse current occupational status: unemployed Feels Safe at Home: Yes Assistive Devices: Cane and Walker Review of Systems Review of Systems: All other findings negative except as noted in HPI. Physical Exam Constitutional: WD/WN, vitals as above Respiratory: normal respiratory effort, lungs clear to auscultation Cardiovascular: RRR, no murmur, no edema Gastrointestinal (Abdomen): normal bowel sounds, soft, nontender, no hepatosplenomegaly Skin: no rashes, warm and dry Results & Data Vital Signs (Past 12 Hours) Vital Signs Temp Pulse Pulse Resp BP BP Pulse Ox 04/30/24 09:26 90 20 91/75 L 98 04/30/24 09:26 04/30/24 09:00 93 H 20 94/53 L 99 04/30/24 08:49 96 H 04/30/24 08:16 101 H 24 82/55 L 97 04/30/24 07:03 97/69 L 04/30/24 06:00 88 18 111/68 98 04/30/24 05:48 91 H 22 96/65 L 99 04/30/24 05:47 96/65 L 04/30/24 05:31 88 16 102/69 100 04/30/24 05:15 96 H 20 83/61 L 99 04/30/24 05:06 94 H 20 89/69 L 100 04/30/24 04:21 100 H 16 99 04/30/24 04:14 97 H 04/30/24 04:12 36.2 C L 84 16 94/65 L 100 Pulse Ox O2 Del Method O2 Del Method O2 Flow Rate O2 Flow Rate 04/30/24 09:26 Nasal Cannula 2 04/30/24 09:26 97 Nasal Cannula 2 04/30/24 09:00 Nasal Cannula 2 04/30/24 08:49 04/30/24 08:16 Nasal Cannula 2 04/30/24 07:03 04/30/24 06:00 Nasal Cannula 2 04/30/24 05:48 Nasal Cannula 2 04/30/24 05:47 04/30/24 05:31 04/30/24 05:15 04/30/24 05:06 04/30/24 04:21 Room Air 04/30/24 04:14 04/30/24 04:12 Room Air Laboratory Results 04/30/24 04/30/24 04/30/24 Range/Units 09:43 08:40 08:35 WBC (4.8-10.8) K/ul RBC (4.70-6.10) M/uL Hgb 9.6 L 9.8 L (14.0-18.0) g/dl POC Hgb (14.0-18.0) g/dl Hct 29.2 L 29.4 L (42.0-52.0) % POC Hct (42-52) % MCV (80.0-100.0) fL MCH (25.0-34.0) pg MCHC (32.0-36.0) g/dL RDW Std Deviation (36.4-46.3) fL RDW Coeff of Riley (11.5-14.5) % Plt Count (130-400) K/uL MPV (9.4-12.4) fL Neutrophils % (Manual) % Lymphocytes % (Manual) % Monocytes % (Manual) % Neutrophils # (Manual) (1.40-6.50) K/uL Total Absolute Neuts (1.4-6.5) K/uL Lymphocytes # (Manual) (1.2-3.4) K/uL Total Abs Lymphocytes (1.2-3.4) K/uL Monocytes # (Manual) (0.11-0.59) K/uL PT INR APTT PTT Ratio POC Sodium (135-144) mmol/L Sodium (136-145) mmol/L POC Potassium (3.3-5.0) mmol/L Potassium (3.5-5.1) mmol/L POC Chloride (101-112) mmol/L Chloride (98-107) mmol/L Carbon Dioxide (21-32) mmol/L POC Total CO2 (24-31) mmol/L Anion Gap (3-11) POC Anion Gap (16-25) mmol/L POC BUN (7-18) mg/dl BUN (6-23) mg/dl Creatinine (0.6-1.4) mg/dl POC Creatinine (0.6-1.3) mg/dl Est Cr Clr Drug Dosing ml/min Est GFR ( Amer) ml/min Est GFR (Non-Af Amer) ml/min BUN/Creatinine Ratio (10-20) Glucose (70-99(Fasting)) mg/dl POC Glucose (other) (70-99) mg/dl Calcium (8.6-10.3) mg/dl POC Ioniz Calcium Terri (1.12-1.32) mmol/l Total Bilirubin (0.2-1.0) mg/dl AST (13-39) U/L ALT (7-52) U/L Alkaline Phosphatase (34-104) U/L Troponin I High Sens (0-20) pg/ml Total Protein (6.0-8.3) gm/dl Albumin (3.4-5.0) gm/dl Globulin (2.5-4.0) gm/dl Albumin/Globulin Ratio (0.9-2) Stl C. cayetanensis PCR Not Detected (NotDetected) Stool Rotavirus A PCR Not Detected (NotDetected) Stl Adenov F 40/41 PCR Not Detected (NotDetected) Stool Astrovirus (PCR) Not Detected (NotDetected) Stool Campylobacter PCR Not Detected (NotDetected) Stl C. diff Tox B Gene Negative Cdiff Gene (Neg) Stool Cryptosporidium PCR Not Detected (NotDetected) Stl E.coli Shiga Tox PCR Not Detected (NotDetected) Stl Enterotoxigenic E PCR Not Detected (NotDetected) Stool EPEC (PCR) Not Detected (NotDetected) Stool EAEC (PCR) Not Detected (NotDetected) Stl E. histolytica PCR Not Detected (NotDetected) Stool Giardia Lamblia PCR Not Detected (NotDetected) Stool Salmonella PCR Not Detected (NotDetected) Stool Sapovirus (PCR) Not Detected (NotDetected) Stl P. shigelloides PCR Not Detected (NotDetected) Stl Shigella/EIEC PCR Not Detected (NotDetected) St Y.enterocolitica PCR Not Detected (NotDetected) Stool Vibrio (PCR) Not Detected (NotDetected) Stl Vibrio cholerae PCR Not Detected (NotDetected) Stl Norovirus GI/GII PCR Not Detected (NotDetected) Blood Type Antibody Screen 04/30/24 04/30/24 04/30/24 Range/Units 05:33 05:16 04:28 WBC (4.8-10.8) K/ul RBC (4.70-6.10) M/uL Hgb 11.1 L (14.0-18.0) g/dl POC Hgb 10.5 L (14.0-18.0) g/dl Hct 33.6 L (42.0-52.0) % POC Hct 31 L (42-52) % MCV (80.0-100.0) fL MCH (25.0-34.0) pg MCHC (32.0-36.0) g/dL RDW Std Deviation (36.4-46.3) fL RDW Coeff of Riley (11.5-14.5) % Plt Count (130-400) K/uL MPV (9.4-12.4) fL Neutrophils % (Manual) % Lymphocytes % (Manual) % Monocytes % (Manual) % Neutrophils # (Manual) (1.40-6.50) K/uL Total Absolute Neuts (1.4-6.5) K/uL Lymphocytes # (Manual) (1.2-3.4) K/uL Total Abs Lymphocytes (1.2-3.4) K/uL Monocytes # (Manual) (0.11-0.59) K/uL PT 11.8 INR 1.1 APTT 23 PTT Ratio 0.9 POC Sodium 136 (135-144) mmol/L Sodium (136-145) mmol/L POC Potassium 6.6 H* (3.3-5.0) mmol/L Potassium (3.5-5.1) mmol/L POC Chloride 104 (101-112) mmol/L Chloride (98-107) mmol/L Carbon Dioxide (21-32) mmol/L POC Total CO2 27 (24-31) mmol/L Anion Gap (3-11) POC Anion Gap 13.0 L (16-25) mmol/L POC BUN 57 H (7-18) mg/dl BUN (6-23) mg/dl Creatinine (0.6-1.4) mg/dl POC Creatinine 1.3 (0.6-1.3) mg/dl Est Cr Clr Drug Dosing ml/min Est GFR ( Amer) ml/min Est GFR (Non-Af Amer) ml/min BUN/Creatinine Ratio (10-20) Glucose (70-99(Fasting)) mg/dl POC Glucose (other) 122 H (70-99) mg/dl Calcium (8.6-10.3) mg/dl POC Ioniz Calcium Terri 1.06 L (1.12-1.32) mmol/l Total Bilirubin (0.2-1.0) mg/dl AST (13-39) U/L ALT (7-52) U/L Alkaline Phosphatase (34-104) U/L Troponin I High Sens (0-20) pg/ml Total Protein (6.0-8.3) gm/dl Albumin (3.4-5.0) gm/dl Globulin (2.5-4.0) gm/dl Albumin/Globulin Ratio (0.9-2) Stl C. cayetanensis PCR (NotDetected) Stool Rotavirus A PCR (NotDetected) Stl Adenov F 40/41 PCR (NotDetected) Stool Astrovirus (PCR) (NotDetected) Stool Campylobacter PCR (NotDetected) Stl C. diff Tox B Gene (Neg) Stool Cryptosporidium PCR (NotDetected) Stl E.coli Shiga Tox PCR (NotDetected) Stl Enterotoxigenic E PCR (NotDetected) Stool EPEC (PCR) (NotDetected) Stool EAEC (PCR) (NotDetected) Stl E. histolytica PCR (NotDetected) Stool Giardia Lamblia PCR (NotDetected) Stool Salmonella PCR (NotDetected) Stool Sapovirus (PCR) (NotDetected) Stl P. shigelloides PCR (NotDetected) Stl Shigella/EIEC PCR (NotDetected) St Y.enterocolitica PCR (NotDetected) Stool Vibrio (PCR) (NotDetected) Stl Vibrio cholerae PCR (NotDetected) Stl Norovirus GI/GII PCR (NotDetected) Blood Type Antibody Screen 04/30/24 04/30/24 Range/Units 04:20 04:07 WBC 19.26 H (4.8-10.8) K/ul RBC 3.72 L (4.70-6.10) M/uL Hgb 11.2 L (14.0-18.0) g/dl POC Hgb (14.0-18.0) g/dl Hct 34.3 L (42.0-52.0) % POC Hct (42-52) % MCV 92.2 (80.0-100.0) fL MCH 30.1 (25.0-34.0) pg MCHC 32.7 (32.0-36.0) g/dL RDW Std Deviation 42.0 (36.4-46.3) fL RDW Coeff of Riley 12.4 (11.5-14.5) % Plt Count 213 (130-400) K/uL MPV 11.2 (9.4-12.4) fL Neutrophils % (Manual) 69 % Lymphocytes % (Manual) 19 % Monocytes % (Manual) 12 % Neutrophils # (Manual) 13.29 H (1.40-6.50) K/uL Total Absolute Neuts 13.29 H (1.4-6.5) K/uL Lymphocytes # (Manual) 3.66 H (1.2-3.4) K/uL Total Abs Lymphocytes 3.66 H (1.2-3.4) K/uL Monocytes # (Manual) 2.31 H (0.11-0.59) K/uL PT Cancelled INR Cancelled APTT Cancelled PTT Ratio Cancelled POC Sodium (135-144) mmol/L Sodium 137 (136-145) mmol/L POC Potassium (3.3-5.0) mmol/L Potassium 5.0 (3.5-5.1) mmol/L POC Chloride (101-112) mmol/L Chloride 100 (98-107) mmol/L Carbon Dioxide 28 (21-32) mmol/L POC Total CO2 (24-31) mmol/L Anion Gap 9 (3-11) POC Anion Gap (16-25) mmol/L POC BUN (7-18) mg/dl BUN 43 H (6-23) mg/dl Creatinine 1.38 (0.6-1.4) mg/dl POC Creatinine (0.6-1.3) mg/dl Est Cr Clr Drug Dosing 66.8 ml/min Est GFR ( Amer) 64.4 ml/min Est GFR (Non-Af Amer) 55.6 ml/min BUN/Creatinine Ratio 31.2 H (10-20) Glucose 169 H (70-99(Fasting)) mg/dl POC Glucose (other) (70-99) mg/dl Calcium 9.2 (8.6-10.3) mg/dl POC Ioniz Calcium Terri (1.12-1.32) mmol/l Total Bilirubin 0.5 (0.2-1.0) mg/dl AST 30 (13-39) U/L ALT 31 (7-52) U/L Alkaline Phosphatase 81 (34-104) U/L Troponin I High Sens 3.1 (0-20) pg/ml Total Protein 7.1 (6.0-8.3) gm/dl Albumin 3.9 (3.4-5.0) gm/dl Globulin 3.2 (2.5-4.0) gm/dl Albumin/Globulin Ratio 1.2 (0.9-2) Stl C. cayetanensis PCR (NotDetected) Stool Rotavirus A PCR (NotDetected) Stl Adenov F 40/41 PCR (NotDetected) Stool Astrovirus (PCR) (NotDetected) Stool Campylobacter PCR (NotDetected) Stl C. diff Tox B Gene (Neg) Stool Cryptosporidium PCR (NotDetected) Stl E.coli Shiga Tox PCR (NotDetected) Stl Enterotoxigenic E PCR (NotDetected) Stool EPEC (PCR) (NotDetected) Stool EAEC (PCR) (NotDetected) Stl E. histolytica PCR (NotDetected) Stool Giardia Lamblia PCR (NotDetected) Stool Salmonella PCR (NotDetected) Stool Sapovirus (PCR) (NotDetected) Stl P. shigelloides PCR (NotDetected) Stl Shigella/EIEC PCR (NotDetected) St Y.enterocolitica PCR (NotDetected) Stool Vibrio (PCR) (NotDetected) Stl Vibrio cholerae PCR (NotDetected) Stl Norovirus GI/GII PCR (NotDetected) Blood Type O Negative Antibody Screen NEGATIVE PG Care Time/CCT Total # of Minutes Spent Total Time Spent with Patient: Total time spent is greater than 50% in coordination of care (as documented) at patient's floor/unit and/or counseling patient: Coding Level of Care Code 63575 IN/OBS CONSULT LVL 4,60M Diagnoses Gastrointestinal hemorrhage, unspecified gastrointestinal hemorrhage type K92.2 GI bleed type/associated pathology: unspecified gastrointestinal hemorrhage type (1) GI bleed GI bleed type/associated pathology: unspecified gastrointestinal hemorrhage type Qualified Code(s): K92.2 - Gastrointestinal hemorrhage, unspecified
--- NOTE | 2024-04-30 11:50 | Anesthesiology Consultation ---
Date of Service April 30, 2024 Assessment & Plan Chart Review Chart Review: Acceptable Risk for Surgery, Patient NOT seen in Pre Admission Testing and order entry representative initiated Consults Requested none Proposed Anesthesia Anesthesia Type: MAC History Surgery Operation Date: 04/30/24 17:00 Proposed Procedures p Esophagogastroduodenoscopy Martin Salazar MD Height/Weight Height: 5 ft 8 in Weight: 102.2 kg Allergies Allergy/AdvReac Type Severity Reaction Status Date / Time levetiracetam [From [facility]] Allergy tongue Verified 12/28/23 16:34 edema morphine AdvReac Unknown Vomiting Verified 12/28/23 15:58 Medications Home Medications Medication Instructions Recorded Confirmed Last Taken albuterol sulfate 90 mcg/actuation 2 puff inhalation Q4H PRN 04/30/24 04/30/24 Unknown aerosol inhaler Shortness Of Breath Or Wheezing amitriptyline 50 mg tablet 75 mg PO HS 04/30/24 04/30/24 Unknown aspirin 81 mg tablet,delayed 81 mg PO DAILY 04/30/24 04/30/24 Unknown release cyclobenzaprine 5 mg tablet 2.5 mg PO HS PRN Spasms 04/30/24 04/30/24 Unknown famotidine 20 mg tablet 20 mg PO DAILY 04/30/24 04/30/24 Unknown furosemide 20 mg tablet 20 mg PO DAILY 04/30/24 04/30/24 Unknown gabapentin 100 mg capsule 100 mg PO UD 04/30/24 04/30/24 Unknown ipratropium 20 mcg-albuterol 100 1 puff inhalation Q4H PRN 04/30/24 04/30/24 Unknown mcg/actuation mist for inhalation Shortness Of Breath Or Wheezing (Combivent Respimat) metoprolol succinate 25 mg 25 mg PO BID 04/30/24 04/30/24 Unknown tablet,extended release 24 hr mometasone-formoterol HFA 200 2 puff inhalation BID 04/30/24 04/30/24 Unknown mcg-5 mcg/actuation aerosol inhaler (Dulera) montelukast 10 mg tablet 10 mg PO DAILY 04/30/24 04/30/24 Unknown paroxetine HCl 40 mg tablet 40 mg PO DAILY 04/30/24 04/30/24 Unknown potassium chloride 10 mEq 10 meq PO DAILY 04/30/24 04/30/24 Unknown tablet,extended release(part/cryst) pravastatin 40 mg tablet 40 mg PO HS 04/30/24 04/30/24 Unknown primidone 50 mg tablet 50 mg PO BID 04/30/24 04/30/24 Unknown spironolactone 25 mg tablet 25 mg PO DAILY 04/30/24 04/30/24 Unknown umeclidinium 62.5 mcg/actuation 1 inh inhalation DAILY 04/30/24 04/30/24 Unknown blister powder for inhalation (Incruse Ellipta) varenicline 1 mg tablet 1 mg PO BID 04/30/24 04/30/24 Unknown Active Medications Generic Name Dose Route Start Last Admin Trade Name Freq PRN Reason Stop Dose Admin Famotidine 20 mg 04/30/24 10:00 04/30/24 10:42 Famotidine 20 Mg Tab PO 05/30/24 09:59 20 mg DAILY ROBERTA Administration Fluticasone/Vilanterol 1 puffs 04/30/24 10:15 04/30/24 10:52 Fluticasone/Vilanterol 100/25mcg 14 Puffs/Inhaler INH 05/30/24 10:14 1 puffs DAILY ROBERTA Administration Furosemide 20 mg 04/30/24 10:00 04/30/24 10:42 Furosemide 20 Mg Tab PO 05/30/24 09:59 Not Given DAILY ROBERTA Gabapentin 100 mg 04/30/24 10:00 04/30/24 11:02 Gabapentin 100 Mg Cap PO 05/30/24 09:59 Not Given BID@0900,1200 ROBERTA Sodium Chloride 1,000 mls @ 75 mls/hr 04/30/24 08:00 04/30/24 08:26 Nss IV 05/30/24 07:59 75 mls/hr .[id number] ROBERTA Administration Pantoprazole Sodium 40 mg/ 100 mls @ 20 mls/hr 04/30/24 08:30 04/30/24 08:43 Dextrose IV 05/30/24 08:29 8 mg/hr Q5H ROBERTA 20 mls/hr Administration 8 MG/HR Metoprolol Succinate 25 mg 04/30/24 10:00 04/30/24 10:42 Metoprolol Succ 25mg Ext Rel Tab PO 05/30/24 09:59 Not Given BID ROBERTA Montelukast Sodium 10 mg 04/30/24 10:00 04/30/24 10:42 Montelukast Sodium 10 Mg Tablet PO 05/30/24 09:59 10 mg DAILY ROBERTA Administration Paroxetine HCl 40 mg 04/30/24 10:00 04/30/24 10:42 Paroxetine Hcl 20 Mg Tab PO 05/30/24 09:59 40 mg DAILY ROBERTA Administration Primidone 50 mg 04/30/24 10:00 04/30/24 10:42 Primidone 50 Mg Tab PO 05/30/24 09:59 50 mg BID ROBERTA Administration Spironolactone 25 mg 04/30/24 10:00 04/30/24 10:43 Spironolactone 25 Mg Tab PO 05/30/24 09:59 Not Given DAILY ROBERTA Umeclidinium [place] 1 puffs 04/30/24 10:00 04/30/24 10:52 Umeclidinium [place] 62.5mcg/Blister 7 Puffs/Inhaler INH 05/30/24 09:59 1 puffs DAILY ROBERTA Administration Past Medical History Medical History Pneumonitis Hx of renal calculi Past Family History Family History Other Cancer Diabetes Heart disease Lung disease Social History Smoking Status: Former smoker Do You Dip or Chew Tobacco: No Hx Alcohol Use: Yes Alcohol type: beer alcohol intake frequency: holidays/special occasions only Hx Substance Use: No Physical Exam Vital Signs Last Vital Signs Temp 36.2 C L 04/30/24 04:12 Pulse 90 04/30/24 09:26 Resp 20 04/30/24 09:26 BP 91/75 L 04/30/24 09:26 Pulse Ox 97 04/30/24 09:26 O2 Del Method Nasal Cannula 04/30/24 09:26 O2 Flow Rate 2 04/30/24 09:26 Testing Laboratory Results 04/30/24 09:43 04/30/24 04:07 PT 11.8 Seconds (9.0-12.0) 04/30/24 05:16 INR 1.1 (0.9-1.1) 04/30/24 05:16 APTT 23 Seconds (21-31) 08/05/24 05:16 Blood Type O Negative 04/30/24 04:20 Antibody Screen NEGATIVE 04/30/24 04:20 04/30/24 04:28 POC Glucose (other) 122 H Electrocardiogram Date: 04/30/24 DICTATED BY: Edin Madera MD Test Reason : Blood Pressure : / mmHG Vent. Rate : 098 BPM Atrial Rate : 098 BPM P-R Int : 188 ms QRS Dur : 078 ms QT Int : 360 ms P-R-T Axes : 019 056 021 degrees QTc Int : 459 ms Normal sinus rhythm Normal ECG When compared with ECG of 04-NOV-2019 21:59, T wave inversion no longer evident in Anterior leads Confirmed by Edin Madera ([id number]) on 04/30/2024 7:22:32 AM Chest X-Ray Date: 04/30/24 XR chest 1V portable HISTORY: Congestive heart failure. Shortness of breath. COMPARISON: Chest 11/04/2019. FINDINGS: No pneumothorax. No pleural effusions. S-shaped scoliosis again noted with chest wall deformities. Left basilar linear densities favor subsegmental atelectasis or scarring. This is similar to the prior study. There is perihilar interstitial/vascular thickening which has progressed. This suggests developing pulmonary edema. The heart remains enlarged. No acute fractures. IMPRESSION: Interval progression of the interstitial/vascular thickening with mild cardiomegaly. This suggests developing pulmonary edema. Echocardiogram Date: 05/22/20 EF: 55-59 LV Function: normal RWMA: + none Other Findings: + LVH (borderline) Valvular Disease: + no significant valvular disease
[2024-04-30 12:31] LABS: BUN Creatinine Ratio 43.1 (10-20); Calcium 8.6 mg/dl (8.6-10.3); Creatinine Clr Calc Pharmacy 90.4 ml/min; Est GFR (African American) 92.8 ml/min; Est GFR (Non-African American) 80.1 ml/min; Potassium 4.8 mmol/L (3.5-5.1)
[2024-04-30] MEDS: INSULIN ASPART PER UNIT CHARGE SC SCH ×2 (12:59→20:19)
--- NOTE | 2024-04-30 14:17 | GI REPORT ---
[facility] Patient: LELO CONCEPCION : 1965 Sex at : Male Age: 58 Years Procedure: Upper GI endoscopy Date: 04/30/2024 Attending Physician: Mike Salazar MD Referring MD: Javier Montesinos Indications: - Suspected upper gastrointestinal bleeding - Melena - Acute post hemorrhagic anemia Medications: - Monitored Anesthesia Care Moderate Sedation: - See the other procedure note for documentation of moderate sedation with intraservice time. Complications: - No immediate complications. Estimated Blood Loss: - Estimated blood loss was minimal. Procedure: - Prior to the procedure, a History and Physical was performed, and patient medications and allergies were reviewed. The patient's tolerance of previous anesthesia was also reviewed. The risks and benefits of the procedure and the sedation options and risks were discussed with the patient. All questions were answered, and informed consent was obtained. Prior Anticoagulants: The patient has taken no anticoagulant or antiplatelet agents except for aspirin. ASA Grade Assessment: III - A patient with severe systemic disease. After reviewing the risks and benefits, the patient was deemed in satisfactory condition to undergo the procedure. - The egd scope was introduced through the mouth and advanced to the second part of the duodenum. - The upper GI endoscopy was accomplished without difficulty. - The patient tolerated the procedure well. - The upper GI endoscopy was accomplished with ease. Findings: - The examined esophagus was normal. - Scattered moderate inflammation characterized by erythema was found in the gastric body and in the gastric antrum. Biopsies were taken with a cold forceps for Helicobacter pylori testing. Estimated blood loss was minimal. - One non-bleeding cratered gastric ulcer with no stigmata of bleeding was found on the lesser curvature of the gastric body. The lesion was 10 mm in largest dimension. - The examined duodenum was normal. - Old blood and food found in fundus. NO ACTIVE BLEEDING. Impression: - Normal esophagus. - Acute gastritis, characterized by erythema. Biopsied. - Non-bleeding gastric ulcer with no stigmata of bleeding. - Normal examined duodenum. - Old blood and food found in fundus. NO ACTIVE BLEEDING. Recommendation: - Discharge patient to home (ambulatory). - Resume previous diet. - Continue present medications. - Await pathology results. - Resume [Medication] at prior dose [Time to Restart]. [Management] for further adjustment of therapy. - Return to primary care physician as previously scheduled. - Patient has a contact number available for emergencies. The signs and symptoms of potential delayed complications were discussed with the patient. Return to normal activities tomorrow. Written discharge instructions were provided to the patient. - Use Protonix (pantoprazole) 40 mg PO BID. - Clear liquid diet. Procedure Code(s): - 68976, Esophagogastroduodenoscopy, flexible, transoral; with biopsy, single or multiple Diagnosis Code(s): - K92.1, Melena (includes Hematochezia) - D62, Acute posthemorrhagic anemia - K29.00, Acute gastritis without bleeding - K25.9, Gastric ulcer, unspecified as acute or chronic, without hemorrhage or perforation CPT(R) - 2023 copyright [employer] [place] [employer]. All Rights Reserved. The CPT codes, CCI edits and ICD codes generated are intended as suggestions and were generated based on input data. These codes are preliminary and upon machining technician review may be revised to meet current compliance and payer requirements. The provider is responsible for the final determination of appropriate codes, and modifiers. Mike Salazar MD This document has been electronically signed. Note Initiated:04/30/2024 Note Completed:04/30/2024 2:16 PM [email or web address]\[id number]
[2024-04-30 15:48] LABS: Hematocrit (blood only) 31.5 % (42.0-52.0); Hemoglobin 10.1 g/dl (14.0-18.0)
--- NOTE | 2024-04-30 16:39 | Communication Note ---
Date of Service: April 30, 2024 58 years old male was admitted with melena and also bright red blood per rectum since last night. Status post EGD with mild gastritis but no evidence of acute bleed. Remains hemodynamically stable. Will have full progress note tomorrow. Dr Franco Jimenez
--- NOTE | 2024-04-30 17:00 | Electrocardiogram Report ---
Test Reason : Blood Pressure : */* mmHG Vent. Rate : 89 BPM Atrial Rate : 89 BPM P-R Int : 196 ms QRS Dur : 82 ms QT Int : 372 ms P-R-T Axes : 24 47 28 degrees QTcB Int : 452 ms Normal sinus rhythm Normal ECG When compared with ECG of 30-Apr-2024 04:07, No significant change was found Confirmed by Edin Madera ([id number]) on 04/30/2024 4:59:59 PM Referred By: REFERRED SELF Confirmed By: Edin Madera
[2024-04-30] MEDS: METOCLOPRAMIDE HCL INJ 5 MG/ML 2 ML VIAL IV STA (18:44)
[2024-04-30] MEDS: LIDOCAINE 2% 2 ML VIAL/AMP(20MG/ML) INFIL ONE (18:45)
[2024-04-30] MEDS: PROPOFOL IV EMULSION 10 MG/ML 20 ML VIAL IV ONE (18:45)
[2024-04-30] MEDS ORDERED: Nursing to Pharmacy Communication SCH (19:45)
[2024-04-30] MEDS: PRAVASTATIN SOD 40 MG TAB PO SCH (20:19)
[2024-04-30] MEDS: AMITRIPTYLINE HCL 25 MG TAB PO SCH (20:19)
[2024-04-30] MEDS: PNEUMOCOCCAL VACCINE (PCV20) 20-VAL CONJ-DIP CRM/PF 0.5 ML SYR IM ONE (20:23)
[2024-04-30 22:05] LABS: Hematocrit (blood only) 28.6 % (42.0-52.0); Hemoglobin 9.4 g/dl (14.0-18.0)
[2024-05-01 06:00] LABS: Basophils # (auto) 0.04 K/uL (0.00-0.20); Basophils % (auto) 0.4 %; Eosinophils # (auto) 0.23 K/uL (0.00-0.50); Eosinophils % (auto) 2.2 %; Hematocrit (blood only) 25.3 % (42.0-52.0); Hemoglobin 8.2 g/dl (14.0-18.0); Immature Granulocytes # (auto) 0.07 K/uL (0.01-0.20); Immature Granulocytes % (auto) 0.7 %; Lymphocytes # (auto) 3.74 K/uL (1.20-3.40); Mean Corpuscular Hemoglobin 30.5 pg (25.0-34.0); Mean Corpuscular Hgb Conc 32.4 g/dL (32.0-36.0); Mean Corpuscular Volume 94.1 fL (80.0-100.0); Mean Platelet Volume 10.2 fL (9.4-12.4); Monocytes # (auto) 1.03 K/uL (0.11-0.59); Monocytes % (auto) 9.9 %; Neutrophils # (auto) 5.28 K/uL (1.40-6.50); Neutrophils % (auto) 50.8 %; Platelet Count 124 K/uL (130-400); RDW Coefficient of Variation 12.9 % (11.5-14.5); RDW Standard Deviation 43.9 fL (36.4-46.3); Red Blood Count 2.69 M/uL (4.70-6.10); White Blood Count 10.39 K/ul (4.8-10.8)
[2024-05-01 06:11] LABS: BUN Creatinine Ratio 27.7 (10-20); Calcium 8.2 mg/dl (8.6-10.3); Creatinine Clr Calc Pharmacy 94.6 ml/min; Est GFR (African American) 93.9 ml/min; Magnesium 1.8 mg/dl (1.7-2.4); Phosphorus 3.1 mg/dl (2.5-4.9); Potassium 4.4 mmol/L (3.5-5.1)
--- NOTE | 2024-05-01 08:57 | Gastroenterology Progress Note ---
Date of Service May 01, 2024 Assessment & Plan (1) Acute GI bleeding: Plan: 58 year old male with history of interstitial lung disease, GRACIE, migraines, dyslipidemia and others below admitted through the ED report of melena and hematochezia, EGD yesterday revealing a non-bleeding gastric ulcer with no stigmata of bleeding. gastritis and old blood/food in stomach. He has remained hemodynamically stable overnight, HGB 8.2, BUN 28 w/o further reports of GI bleeding. Run IV PPI dry today Then may convert to PO PPI BID Clear liquid diet today then advance as tolerated Trend HGB Monitor and document GI output Transfuse PRN per primary service I spent a total of 40 minutes on the date of service in review of patient's record, and previously obtained information in person and appropriate medical visit, discussion and education of plan, with patient and/or caregiver, placing orders for tests/referral/procedures as medically necessary and documentation of pertinent clinical information in patient's medical records for their visit today. Admission and Anticipated Discharge Date Admission Date: April 30, 2024 Supervising Physician Co-Signing Physician Notes I personally saw and examined the patient. I have reviewed the chart and agree with the documentation provided by the AUTO [employer]S DELIVERY DRIVER including discussion about the assessment, treatment and plan. Doing better, no further bleeding. eating. advance diet to cardiac. ppi oral bid. f/up biopsies. have pt get oob today. Subjective Pt was seen and evaluated, chart reviewed. Feeling well - just waking up. Denies abd pain, nausea, vomiting. Had a BM last evening around 7/8 PM which was reported as dark. No further stool overnight. EGD 2023: - Normal esophagus. - Acute gastritis, characterized by erythema. Biopsied. - Non-bleeding gastric ulcer with no stigmata of bleeding. - Normal examined duodenum. - Old blood and food found in fundus. NO ACTIVE BLEEDING. Review of Systems Review of Systems: All other findings negative except as noted in HPI. Physical Exam Constitutional: WD/WN, vitals as above Respiratory: normal respiratory effort, lungs clear to auscultation Cardiovascular: RRR, no murmur, no edema Gastrointestinal (Abdomen): normal bowel sounds, soft, nontender, no hepatosplenomegaly Skin: no rashes, warm and dry Results & Data Results & Data Vital Signs (Past 12 Hours) Vital Signs Temp Pulse Pulse Resp BP Pulse Ox O2 Del Method 05/01/24 07:16 36.4 C L 82 19 102/66 100 BiPAP 05/01/24 03:15 88 14 100 05/01/24 02:52 36.8 C 87 18 95/65 L 97 BiPAP 04/30/24 22:59 19 95 04/30/24 22:57 36.8 C 89 19 97/69 L 95 BiPAP 04/30/24 21:45 93 H O2 Flow Rate 05/01/24 07:16 05/01/24 03:15 2 05/01/24 02:52 04/30/24 22:59 2 04/30/24 22:57 04/30/24 21:45 Laboratory Results 05/01/24 05/01/24 04/30/24 Range/Units 07:21 05:38 21:20 WBC 10.39 (4.8-10.8) K/ul RBC 2.69 L (4.70-6.10) M/uL Hgb 8.2 L 9.4 L (14.0-18.0) g/dl Hct 25.3 L 28.6 L (42.0-52.0) % MCV 94.1 (80.0-100.0) fL MCH 30.5 (25.0-34.0) pg MCHC 32.4 (32.0-36.0) g/dL RDW Std Deviation 43.9 (36.4-46.3) fL RDW Coeff of Riley 12.9 (11.5-14.5) % Plt Count 124 L (130-400) K/uL MPV 10.2 (9.4-12.4) fL Immature Gran % (Auto) 0.7 % Neut % (Auto) 50.8 % Lymph % (Auto) 36.0 % [place] % (Auto) 9.9 % Eos % (Auto) 2.2 % Baso % (Auto) 0.4 % Neut # (Auto) 5.28 (1.40-6.50) K/uL Lymph # (Auto) 3.74 H (1.20-3.40) K/uL [place] # (Auto) 1.03 H (0.11-0.59) K/uL Eos # (Auto) 0.23 (0.00-0.50) K/uL Baso # (Auto) 0.04 (0.00-0.20) K/uL Immature Gran # (Auto) 0.07 (0.01-0.20) K/uL Sodium 138 (136-145) mmol/L Potassium 4.4 (3.5-5.1) mmol/L Chloride 106 (98-107) mmol/L Carbon Dioxide 29 (21-32) mmol/L Anion Gap 3 (3-11) BUN 28 H (6-23) mg/dl Creatinine 1.01 (0.6-1.4) mg/dl Est Cr Clr Drug Dosing 94.6 ml/min Est GFR ( Amer) 93.9 ml/min Est GFR (Non-Af Amer) 81.0 ml/min BUN/Creatinine Ratio 27.7 H (10-20) Glucose 109 H (70-99(Fasting)) mg/dl POC Glucose 122 H (70-99) mg/dl Calcium 8.2 L (8.6-10.3) mg/dl Phosphorus 3.1 (2.5-4.9) mg/dl Magnesium 1.8 (1.7-2.4) mg/dl Stl C. cayetanensis PCR (NotDetected) Stool Rotavirus A PCR (NotDetected) Stl Adenov F 40/41 PCR (NotDetected) Stool Astrovirus (PCR) (NotDetected) Stool Campylobacter PCR (NotDetected) Stl C. diff Tox B Gene (Neg) Stool Cryptosporidium PCR (NotDetected) Stl E.coli Shiga Tox PCR (NotDetected) Stl Enterotoxigenic E PCR (NotDetected) Stool EPEC (PCR) (NotDetected) Stool EAEC (PCR) (NotDetected) Stl E. histolytica PCR (NotDetected) Stool Giardia Lamblia PCR (NotDetected) Stool Salmonella PCR (NotDetected) Stool Sapovirus (PCR) (NotDetected) Stl P. shigelloides PCR (NotDetected) Stl Shigella/EIEC PCR (NotDetected) St Y.enterocolitica PCR (NotDetected) Stool Vibrio (PCR) (NotDetected) Stl Vibrio cholerae PCR (NotDetected) Stl Norovirus GI/GII PCR (NotDetected) 04/30/24 04/30/24 04/30/24 Range/Units 20:05 16:23 15:35 WBC (4.8-10.8) K/ul RBC (4.70-6.10) M/uL Hgb 10.1 L (14.0-18.0) g/dl Hct 31.5 L (42.0-52.0) % MCV (80.0-100.0) fL MCH (25.0-34.0) pg MCHC (32.0-36.0) g/dL RDW Std Deviation (36.4-46.3) fL RDW Coeff of Riley (11.5-14.5) % Plt Count (130-400) K/uL MPV (9.4-12.4) fL Immature Gran % (Auto) % Neut % (Auto) % Lymph % (Auto) % [place] % (Auto) % Eos % (Auto) % Baso % (Auto) % Neut # (Auto) (1.40-6.50) K/uL Lymph # (Auto) (1.20-3.40) K/uL [place] # (Auto) (0.11-0.59) K/uL Eos # (Auto) (0.00-0.50) K/uL Baso # (Auto) (0.00-0.20) K/uL Immature Gran # (Auto) (0.01-0.20) K/uL Sodium (136-145) mmol/L Potassium (3.5-5.1) mmol/L Chloride (98-107) mmol/L Carbon Dioxide (21-32) mmol/L Anion Gap (3-11) BUN (6-23) mg/dl Creatinine (0.6-1.4) mg/dl Est Cr Clr Drug Dosing ml/min Est GFR ( Amer) ml/min Est GFR (Non-Af Amer) ml/min BUN/Creatinine Ratio (10-20) Glucose (70-99(Fasting)) mg/dl POC Glucose 83 86 (70-99) mg/dl Calcium (8.6-10.3) mg/dl Phosphorus (2.5-4.9) mg/dl Magnesium (1.7-2.4) mg/dl Stl C. cayetanensis PCR (NotDetected) Stool Rotavirus A PCR (NotDetected) Stl Adenov F 40/41 PCR (NotDetected) Stool Astrovirus (PCR) (NotDetected) Stool Campylobacter PCR (NotDetected) Stl C. diff Tox B Gene (Neg) Stool Cryptosporidium PCR (NotDetected) Stl E.coli Shiga Tox PCR (NotDetected) Stl Enterotoxigenic E PCR (NotDetected) Stool EPEC (PCR) (NotDetected) Stool EAEC (PCR) (NotDetected) Stl E. histolytica PCR (NotDetected) Stool Giardia Lamblia PCR (NotDetected) Stool Salmonella PCR (NotDetected) Stool Sapovirus (PCR) (NotDetected) Stl P. shigelloides PCR (NotDetected) Stl Shigella/EIEC PCR (NotDetected) St Y.enterocolitica PCR (NotDetected) Stool Vibrio (PCR) (NotDetected) Stl Vibrio cholerae PCR (NotDetected) Stl Norovirus GI/GII PCR (NotDetected) 04/30/24 04/30/24 04/30/24 Range/Units 11:57 09:43 08:40 WBC (4.8-10.8) K/ul RBC (4.70-6.10) M/uL Hgb 9.6 L 9.8 L (14.0-18.0) g/dl Hct 29.2 L 29.4 L (42.0-52.0) % MCV (80.0-100.0) fL MCH (25.0-34.0) pg MCHC (32.0-36.0) g/dL RDW Std Deviation (36.4-46.3) fL RDW Coeff of Riley (11.5-14.5) % Plt Count (130-400) K/uL MPV (9.4-12.4) fL Immature Gran % (Auto) % Neut % (Auto) % Lymph % (Auto) % [place] % (Auto) % Eos % (Auto) % Baso % (Auto) % Neut # (Auto) (1.40-6.50) K/uL Lymph # (Auto) (1.20-3.40) K/uL [place] # (Auto) (0.11-0.59) K/uL Eos # (Auto) (0.00-0.50) K/uL Baso # (Auto) (0.00-0.20) K/uL Immature Gran # (Auto) (0.01-0.20) K/uL Sodium 139 (136-145) mmol/L Potassium 4.8 (3.5-5.1) mmol/L Chloride 108 H (98-107) mmol/L Carbon Dioxide 27 (21-32) mmol/L Anion Gap 4 (3-11) BUN 44 H (6-23) mg/dl Creatinine 1.02 D (0.6-1.4) mg/dl Est Cr Clr Drug Dosing 90.4 ml/min Est GFR ( Amer) 92.8 ml/min Est GFR (Non-Af Amer) 80.1 ml/min BUN/Creatinine Ratio 43.1 H (10-20) Glucose 95 (70-99(Fasting)) mg/dl POC Glucose (70-99) mg/dl Calcium 8.6 (8.6-10.3) mg/dl Phosphorus (2.5-4.9) mg/dl Magnesium (1.7-2.4) mg/dl Stl C. cayetanensis PCR (NotDetected) Stool Rotavirus A PCR (NotDetected) Stl Adenov F 40/41 PCR (NotDetected) Stool Astrovirus (PCR) (NotDetected) Stool Campylobacter PCR (NotDetected) Stl C. diff Tox B Gene (Neg) Stool Cryptosporidium PCR (NotDetected) Stl E.coli Shiga Tox PCR (NotDetected) Stl Enterotoxigenic E PCR (NotDetected) Stool EPEC (PCR) (NotDetected) Stool EAEC (PCR) (NotDetected) Stl E. histolytica PCR (NotDetected) Stool Giardia Lamblia PCR (NotDetected) Stool Salmonella PCR (NotDetected) Stool Sapovirus (PCR) (NotDetected) Stl P. shigelloides PCR (NotDetected) Stl Shigella/EIEC PCR (NotDetected) St Y.enterocolitica PCR (NotDetected) Stool Vibrio (PCR) (NotDetected) Stl Vibrio cholerae PCR (NotDetected) Stl Norovirus GI/GII PCR (NotDetected) 04/30/24 Range/Units 08:35 WBC (4.8-10.8) K/ul RBC (4.70-6.10) M/uL Hgb (14.0-18.0) g/dl Hct (42.0-52.0) % MCV (80.0-100.0) fL MCH (25.0-34.0) pg MCHC (32.0-36.0) g/dL RDW Std Deviation (36.4-46.3) fL RDW Coeff of Riley (11.5-14.5) % Plt Count (130-400) K/uL MPV (9.4-12.4) fL Immature Gran % (Auto) % Neut % (Auto) % Lymph % (Auto) % [place] % (Auto) % Eos % (Auto) % Baso % (Auto) % Neut # (Auto) (1.40-6.50) K/uL Lymph # (Auto) (1.20-3.40) K/uL [place] # (Auto) (0.11-0.59) K/uL Eos # (Auto) (0.00-0.50) K/uL Baso # (Auto) (0.00-0.20) K/uL Immature Gran # (Auto) (0.01-0.20) K/uL Sodium (136-145) mmol/L Potassium (3.5-5.1) mmol/L Chloride (98-107) mmol/L Carbon Dioxide (21-32) mmol/L Anion Gap (3-11) BUN (6-23) mg/dl Creatinine (0.6-1.4) mg/dl Est Cr Clr Drug Dosing ml/min Est GFR ( Amer) ml/min Est GFR (Non-Af Amer) ml/min BUN/Creatinine Ratio (10-20) Glucose (70-99(Fasting)) mg/dl POC Glucose (70-99) mg/dl Calcium (8.6-10.3) mg/dl Phosphorus (2.5-4.9) mg/dl Magnesium (1.7-2.4) mg/dl Stl C. cayetanensis PCR Not Detected (NotDetected) Stool Rotavirus A PCR Not Detected (NotDetected) Stl Adenov F 40/41 PCR Not Detected (NotDetected) Stool Astrovirus (PCR) Not Detected (NotDetected) Stool Campylobacter PCR Not Detected (NotDetected) Stl C. diff Tox B Gene Negative Cdiff Gene (Neg) Stool Cryptosporidium PCR Not Detected (NotDetected) Stl E.coli Shiga Tox PCR Not Detected (NotDetected) Stl Enterotoxigenic E PCR Not Detected (NotDetected) Stool EPEC (PCR) Not Detected (NotDetected) Stool EAEC (PCR) Not Detected (NotDetected) Stl E. histolytica PCR Not Detected (NotDetected) Stool Giardia Lamblia PCR Not Detected (NotDetected) Stool Salmonella PCR Not Detected (NotDetected) Stool Sapovirus (PCR) Not Detected (NotDetected) Stl P. shigelloides PCR Not Detected (NotDetected) Stl Shigella/EIEC PCR Not Detected (NotDetected) St Y.enterocolitica PCR Not Detected (NotDetected) Stool Vibrio (PCR) Not Detected (NotDetected) Stl Vibrio cholerae PCR Not Detected (NotDetected) Stl Norovirus GI/GII PCR Not Detected (NotDetected) PG Care Time/CCT Total # of Minutes Spent Total Time Spent with Patient: Total time spent is greater than 50% in coordination of care (as documented) at patient's floor/unit and/or counseling patient: Coding Level of Care Code 83718 SUB INP/OBS CARE 2/35MIN Diagnoses Acute GI bleeding K92.2
--- NOTE | 2024-05-01 13:16 | Hospitalist Progress Note ---
Date of Service May 01, 2024 Assessment & Plan (1) GI bleed: Plan: 58-year-old male with past medical history significant for type 2 diabetes currently not on medications, hyperlipidemia, chronic respiratory failure with hypoxia on home oxygen, obstructive sleep apnea on CPAP, history of hypersensitive pneumonitis, COPD, moderate persistent asthma, chronic right- sided heart rate, GERD, hepatitis steatosis, restless leg syndrome, left avascular necrosis of femoral head, migraine with aura, essential tremor, depression, tobacco use disorder presents with GI bleed. Patient woke up last night with abdominal cramps and had an episode of blood per rectum. He had few more episodes which also had black and bloody stools. Currently no abdominal pain. Since he came to the ER no more episodes. Denies any chest pain. No shortness of breath. Currently no cough. No fevers. No headache. When this episodes were happening he felt dizzy. No blurred vision. No sore throat. Micturating okay. Currently hemodynamics are okay. Never had GI bleed in the past.Patient had an episode of shaking when EMS was transferring him, no loss of consciousness and at the time lights were bothering him. Patient states he had this episodes of shaking spells going on for couple of years now. GI bleed Black stools and blood per rectum Hemoglobin 11.2 on admission Hold Aspirin Protonix drip Appreciate GI input and recommendation Status post EGD on 04/30/2024 which showed acute gastritis without any evidence of active bleeding or ulceration Patient is still having rectal bleeding in the form of bright red blood and also melena Will continue current management and monitor H&H Type 2 diabetes Seems not on medications Sliding scale Insulin Coverage Patient's last hemoglobin A1c was in hearing (H was 5.7 and we will recheck COPD Chronic respiratory failure on 2 L oxygen Moderate persistent asthma History of hypersensitive pneumonitis Continue home inhalers Nebs as needed Obstructive sleep apnea CPAP nightly Chronic right-sided heart failure Getting gentle fluids Continue home Lasix and spironolactone Monitor for volume overload Essential tremor On primidone Restless leg syndrome On gabapentin Shaking episodes As per neurology notes States patient has Episodes of jerks and dropping objects which Neurology thinks mostly myoclonus and EEG was done which was unremarkable. Neurology was contemplating starting low-dose Keppra if Patient develops more protracted episodes of clear-cut myoclonus. He does not have any more shaking episodes Hyperlipidemia On statin Hypertension On metoprolol succinate and diuretics Monitor hemodynamics Depression On paroxetine and amitriptyline DVT prophylaxis SCDs Disposition Telemetry Full code. Admission and Anticipated Discharge Date Admission Date: April 30, 2024 Subjective 05/01/2024 The patient was seen and examined in telemetry unit He has been feeling reasonably better Ongoing bloody diarrhea without any abdominal pain Blood pressure remains on the lower side Review of Systems Review of Systems: All systems reviewed and are unremarkable except as noted below Physical Exam Physical Exam: Lying in bed without any acute distress Constitutional: well developed, well nourished, + ill appearing and + obese Eyes: PERRL, conjunctivae normal, anicteric sclerae ENMT: external ear and nose normal, oropharynx normal Neck: trachea midline, no thyromegaly Respiratory: no respiratory distress Auscultation: lungs clear to auscultation bilaterally Cardiovascular: Rate/Rhythm: regular rate and regular rhythm; not tachycardic Heart Sounds: normal S1 and normal S2; no murmur Extremities: no edema (Trace edema bilaterally) Gastrointestinal (Abdomen): Inspection/Auscultation: + abdomen distended and normal bowel sounds Percussion/Palpation: abdomen soft; abdomen nontender Musculoskeletal: No acute arthritis involving any of the joint Neurologic: normal touch/pain/proprioception and moves all extremities; no focal motor deficits Psychiatric: A+Ox3, euthymic affect Lymphatic: no cervical or axillary lymphadenopathy Results & Data Results & Data Vital Signs (Past 12 Hours) Vital Signs Temp Pulse Pulse Resp BP Pulse Ox Pulse Ox 05/01/24 11:14 36.4 C L 79 18 96/63 L 98 05/01/24 10:00 05/01/24 09:26 100 05/01/24 07:16 36.4 C L 82 19 102/66 100 05/01/24 03:15 88 14 100 05/01/24 02:52 36.8 C 87 18 95/65 L 97 O2 Del Method O2 Del Method O2 Flow Rate O2 Flow Rate 05/01/24 11:14 Room Air 05/01/24 10:00 Nasal Cannula 2 05/01/24 09:26 Nasal Cannula 2 05/01/24 07:16 BiPAP 05/01/24 03:15 2 05/01/24 02:52 BiPAP Laboratory Results Short CBC 04/30/24 04/30/24 05/01/24 Range/Units 15:35 21:20 05:38 WBC 10.39 (4.8-10.8) K/ul Hgb 10.1 L 9.4 L 8.2 L (14.0-18.0) g/dl Hct 31.5 L 28.6 L 25.3 L (42.0-52.0) % Plt Count 124 L (130-400) K/uL BMP 05/01/24 05:38 Sodium 138 Potassium 4.4 Chloride 106 Carbon Dioxide 29 BUN 28 H Creatinine 1.01 Glucose 109 H Calcium 8.2 L Medications Administered Current Inpatient Medications Albuterol (Albuterol Hfa 8 Gm Inhaler) 2 puffs INH Q4H PRN PRN Reason: Shortness Of Breath Or Wheezing Stop: 05/30/24 09:25 Amitriptyline HCl (Amitriptyline Hcl 25 Mg Tab) 75 mg PO HS ROBERTA Stop: 05/30/24 20:59 Last Admin: 04/30/24 20:19 Dose: 75 mg Dextrose (Dextrose 50% 50 Ml Syringe) 25 - 50 ml IV UD PRN; Protocol PRN Reason: Hypoglycemia Protocol Stop: 05/30/24 09:25 Famotidine (Famotidine 20 Mg Tab) 20 mg PO DAILY ROBERTA Stop: 05/30/24 09:59 Last Admin: 05/01/24 08:53 Dose: 20 mg Fluticasone/Vilanterol (Fluticasone/Vilanterol 100/25mcg 14 Puffs/Inhaler) 1 puffs INH DAILY ROBERTA Stop: 05/30/24 10:14 Last Admin: 05/01/24 08:55 Dose: 1 puffs Furosemide (Furosemide 20 Mg Tab) 20 mg PO DAILY ROBERTA Stop: 05/30/24 09:59 Last Admin: 05/01/24 08:53 Dose: 20 mg Gabapentin (Gabapentin 100 Mg Cap) 100 mg PO BID@0900,1200 ROBERTA Stop: 05/30/24 09:59 Last Admin: 05/01/24 13:08 Dose: 100 mg Gabapentin (Gabapentin 100 Mg Cap) 200 mg PO HS ROBERTA Stop: 05/30/24 20:59 Last Admin: 04/30/24 20:20 Dose: 200 mg Glucagon (Glucagon For Inj 1 Mg Vial) 1 mg SQ UD PRN; Protocol PRN Reason: Hypoglycemia Protocol Stop: 05/30/24 09:25 Glucose (Glucose 40% Gel 15 Gm Tube) 15 - 30 gm PO UD PRN; Protocol PRN Reason: Hypoglycemia Protocol Stop: 05/30/24 09:25 Glucose (Glucose 10 Tab/Tube) 4 - 8 tab PO UD PRN; Protocol PRN Reason: Hypoglycemia Treatment Stop: 05/30/24 09:25 Sodium Chloride (Nss) 1,000 mls @ 75 mls/hr IV .[id number] ROBERTA Stop: 05/30/24 07:59 Last Admin: 05/01/24 09:04 Dose: 75 mls/hr Pantoprazole Sodium 40 mg/ (Dextrose) 100 mls @ 20 mls/hr IV Q5H [facility] Stop: 05/30/24 08:29 Last Admin: 05/01/24 08:55 Dose: 8 mg/hr, 20 mls/hr Insulin Aspart (Insulin Aspart Per Unit Charge) 0 units SC ACHS [facility] Stop: 05/30/24 11:59 Last Admin: 05/01/24 12:06 Dose: Not Given Levalbuterol HCl (Levalbuterol 1.25 Mg/3 Ml Neb) 1.25 mg NEB Q4H PRN PRN Reason: Shortness Of Breath Or Wheezing Stop: 05/30/24 09:25 Metoprolol Succinate (Metoprolol Succ 25mg Ext Rel Tab) 25 mg PO BID [facility] Stop: 05/30/24 09:59 Last Admin: 05/01/24 08:53 Dose: 25 mg Miscellaneous (Carbohydrates For Hypoglycemia ) 15 - 30 gm PO UD PRN PRN Reason: Hypoglycemia Protocol Stop: 05/30/24 09:25 Montelukast Sodium (Montelukast Sodium 10 Mg Tablet) 10 mg PO DAILY [facility] Stop: 05/30/24 09:59 Last Admin: 05/01/24 08:53 Dose: 10 mg Nitroglycerin (Nitroglycerin Sl 0.4 Mg/Tab Tab) 0.4 mg SL Q5M PRN PRN Reason: Chest Pain Stop: 05/30/24 09:25 Ondansetron HCl (Ondansetron Inj 2 Mg/Ml 2 Ml Vial) 4 mg IV Q6H PRN PRN Reason: Nausea Stop: 05/30/24 09:25 Paroxetine HCl (Paroxetine Hcl 20 Mg Tab) 40 mg PO DAILY ROBERTA Stop: 05/30/24 09:59 Last Admin: 05/01/24 08:53 Dose: 40 mg Pravastatin Sodium (Pravastatin Sod 40 Mg Tab) 40 mg PO HS ROBERTA Stop: 05/30/24 20:59 Last Admin: 04/30/24 20:19 Dose: 40 mg Primidone (Primidone 50 Mg Tab) 50 mg PO BID ROBERTA Stop: 05/30/24 09:59 Last Admin: 05/01/24 08:53 Dose: 50 mg Spironolactone (Spironolactone 25 Mg Tab) 25 mg PO DAILY ROBERTA Stop: 05/30/24 09:59 Last Admin: 04/30/24 10:43 Dose: Not Given Umeclidinium Barnum (Umeclidinium Barnum 62.5mcg/Blister 7 Puffs/Inhaler) 1 puffs INH DAILY ROBERTA Stop: 05/30/24 09:59 Last Admin: 05/01/24 08:54 Dose: 1 puffs (1) GI bleed GI bleed type/associated pathology: unspecified gastrointestinal hemorrhage type Qualified Code(s): K92.2 - Gastrointestinal hemorrhage, unspecified
[2024-05-01] MEDS: PANTOprazole 40 MG TAB PO SCH (20:51)
[2024-05-02 07:13] LABS: BUN Creatinine Ratio 15.9 (10-20); Calcium 7.8 mg/dl (8.6-10.3); Creatinine Clr Calc Pharmacy 88.7 ml/min; Est GFR (African American) 87.6 ml/min; Est GFR (Non-African American) 75.6 ml/min; Potassium 3.8 mmol/L (3.5-5.1)
[2024-05-02 07:21] LABS: Hematocrit (blood only) 23.3 % (42.0-52.0); Hemoglobin 7.7 g/dl (14.0-18.0); Mean Corpuscular Hemoglobin 30.9 pg (25.0-34.0); Mean Corpuscular Volume 93.6 fL (80.0-100.0); Mean Platelet Volume 10.7 fL (9.4-12.4); Platelet Count 143 K/uL (130-400); RDW Coefficient of Variation 13.1 % (11.5-14.5); RDW Standard Deviation 44.1 fL (36.4-46.3); Red Blood Count 2.49 M/uL (4.70-6.10); White Blood Count 8.87 K/ul (4.8-10.8)
[2024-05-02 07:22] LABS: Basophils # (auto) 0.02 K/uL (0.00-0.20); Basophils % (auto) 0.2 %; Eosinophils # (auto) 0.34 K/uL (0.00-0.50); Eosinophils % (auto) 3.8 %; Immature Granulocytes # (auto) 0.07 K/uL (0.01-0.20); Immature Granulocytes % (auto) 0.8 %; Lymphocytes % (auto) 45.1 %; Monocytes # (auto) 0.87 K/uL (0.11-0.59); Monocytes % (auto) 9.8 %; Neutrophils # (auto) 3.57 K/uL (1.40-6.50); Neutrophils % (auto) 40.3 %; RBC Morphology Unremarkable
--- NOTE | 2024-05-02 09:40 | Communication Note ---
Date of Service: May 02, 2024 GI was made aware of a downtrending HGB. Pt was seen, chart reviewed. He notes he is feeling well, no abd pain, nausea/vomiting. He did have one stool yest erday which was reported as black. No BM this AM. No nausea/vomiting. HGB 13 --> 12.5 00 --> 11.2 00> 9.8 --> 9.6 --> 10.1 --> 8.2 --> 7.7 BUN 44 --> 28 --> 17 EGD 2023: - Normal esophagus. - Acute gastritis, characterized by erythema. Biopsied. - Non-bleeding gastric ulcer with no stigmata of bleeding. - Normal examined duodenum. - Old blood and food found in fundus. NO ACTIVE BLEEDING. 58 year old male with history of interstitial lung disease, GRACIE, migraines, dyslipidemia and others below admitted through the ED report of melena and hematochezia, EGD yesterday revealing a non-bleeding gastric ulcer with no stigmata of bleeding. gastritis and old blood/food in stomach. He has remained hemodynamically stable overnight, HGB 8.2, BUN 28 w/o further reports of GI bleeding. GI made aware of downtrending HGB and a black stool yesterday. He is likely passing old blood as this was present in his stomach on EGD two days ago. Agree w/ monitoring overnight for any s/s of active GI bleeding May continue diet as tolerated PO PPI BID Trend HGB Monitor and document GI output Transfuse PRN per primary service
[2024-05-02 11:39] VITALS: RESP 18
--- NOTE | 2024-05-02 12:38 | Hospitalist Progress Note ---
Date of Service May 02, 2024 Assessment & Plan (1) GI bleed: Plan: 58-year-old male with past medical history significant for type 2 diabetes currently not on medications, hyperlipidemia, chronic respiratory failure with hypoxia on home oxygen, obstructive sleep apnea on CPAP, history of hypersensitive pneumonitis, COPD, moderate persistent asthma, chronic right- sided heart rate, GERD, hepatitis steatosis, restless leg syndrome, left avascular necrosis of femoral head, migraine with aura, essential tremor, depression, tobacco use disorder presents with GI bleed. Patient woke up last night with abdominal cramps and had an episode of blood per rectum. He had few more episodes which also had black and bloody stools. Currently no abdominal pain. Since he came to the ER no more episodes. Denies any chest pain. No shortness of breath. Currently no cough. No fevers. No headache. When this episodes were happening he felt dizzy. No blurred vision. No sore throat. Micturating okay. Currently hemodynamics are okay. Never had GI bleed in the past.Patient had an episode of shaking when EMS was transferring him, no loss of consciousness and at the time lights were bothering him. Patient states he had this episodes of shaking spells going on for couple of years now. GI bleed Black stools and blood per rectum Hemoglobin 11.2 on admission Hold Aspirin Protonix drip Appreciate GI input and recommendation Status post EGD on 04/30/2024 which showed acute gastritis without any evidence of active bleeding or ulceration Patient is still having rectal bleeding in the form of bright red blood and also melena Abdominal distention without any discomfort and/or pain/no nausea no vomiting Bowel is not moved Hemoglobin slightly down at 7.7 from 8.2 Will try MiraLAX and check CBC tomorrow-possible discharge tomorrow if there is no more bleeding and hemoglobin remained stable Type 2 diabetes Seems not on medications Sliding scale Insulin Coverage Patient's last hemoglobin A1c was in hearing (H was 5.7 and we will recheck COPD Chronic respiratory failure on 2 L oxygen Moderate persistent asthma History of hypersensitive pneumonitis Continue home inhalers Nebs as needed Obstructive sleep apnea CPAP nightly No acute symptoms Chronic right-sided heart failure Getting gentle fluids Continue home Lasix and spironolactone Monitor for volume overload systems: Essential tremor On primidone Restless leg syndrome On gabapentin Shaking episodes As per neurology notes States patient has Episodes of jerks and dropping objects which Neurology thinks mostly myoclonus and EEG was done which was unremarkable. Neurology was contemplating starting low-dose Keppra if Patient develops more protracted episodes of clear-cut myoclonus. He does not have any more shaking episodes Hyperlipidemia On statin Hypertension On metoprolol succinate and diuretics Monitor hemodynamics Depression On paroxetine and amitriptyline DVT prophylaxis SCDs Disposition Telemetry Full code. Admission and Anticipated Discharge Date Admission Date: April 30, 2024 Subjective 05/01/2024 The patient was seen and examined in telemetry unit He has been feeling reasonably better Ongoing bloody diarrhea without any abdominal pain Blood pressure remains on the lower side 05/02/2024 The patient was seen and examined in telemetry unit He has been stable but hemoglobin dropped to 7.7 Bowel has not moved and denies any abdominal pain, nausea and or vomiting Review of Systems Review of Systems: All systems reviewed and are unremarkable except as noted below Physical Exam Physical Exam: Lying in bed without any acute distress Constitutional: well developed, well nourished, + ill appearing and + obese Eyes: PERRL, conjunctivae normal, anicteric sclerae ENMT: external ear and nose normal, oropharynx normal Neck: trachea midline, no thyromegaly Respiratory: no respiratory distress Auscultation: lungs clear to auscultation bilaterally Cardiovascular: Rate/Rhythm: regular rate and regular rhythm; not tachycardic Heart Sounds: normal S1 and normal S2; no murmur Extremities: no edema (Trace edema bilaterally) Gastrointestinal (Abdomen): Inspection/Auscultation: + abdomen distended and normal bowel sounds Percussion/Palpation: abdomen soft; abdomen nontender Musculoskeletal: No acute arthritis involving any of the joint Neurologic: normal touch/pain/proprioception and moves all extremities; no focal motor deficits Psychiatric: A+Ox3, euthymic affect Lymphatic: no cervical or axillary lymphadenopathy Results & Data Results & Data Vital Signs (Past 12 Hours) Vital Signs Temp Pulse Pulse Resp BP Pulse Ox Pulse Ox 05/02/24 11:39 36.5 C 86 18 110/73 100 05/02/24 09:00 85 05/02/24 09:00 05/02/24 09:00 96 05/02/24 07:49 36.5 C 78 16 120/78 99 05/02/24 03:03 36.5 C 89 18 106/68 97 05/02/24 02:25 92 H 17 98 O2 Del Method O2 Del Method O2 Flow Rate O2 Flow Rate 05/02/24 11:39 Nasal Cannula 2 05/02/24 09:00 05/02/24 09:00 Nasal Cannula 2 05/02/24 09:00 Nasal Cannula 2 05/02/24 07:49 Nasal Cannula 2 05/02/24 03:03 Nasal Cannula 2 05/02/24 02:25 2 Laboratory Results Short CBC 05/02/24 Range/Units 06:05 WBC 8.87 (4.8-10.8) K/ul Hgb 7.7 L (14.0-18.0) g/dl Hct 23.3 L (42.0-52.0) % Plt Count 143 (130-400) K/uL BMP 05/02/24 06:05 Sodium 138 Potassium 3.8 Chloride 104 Carbon Dioxide 29 BUN 17 Creatinine 1.07 Glucose 84 Calcium 7.8 L Medications Administered Current Inpatient Medications Albuterol (Albuterol Hfa 8 Gm Inhaler) 2 puffs INH Q4H PRN PRN Reason: Shortness Of Breath Or Wheezing Stop: 05/30/24 09:25 Amitriptyline HCl (Amitriptyline Hcl 25 Mg Tab) 75 mg PO HS ROBERTA Stop: 05/30/24 20:59 Last Admin: 05/01/24 20:52 Dose: 75 mg Dextrose (Dextrose 50% 50 Ml Syringe) 25 - 50 ml IV UD PRN; Protocol PRN Reason: Hypoglycemia Protocol Stop: 05/30/24 09:25 Famotidine (Famotidine 20 Mg Tab) 20 mg PO DAILY ROBERTA Stop: 05/30/24 09:59 Last Admin: 05/02/24 08:05 Dose: 20 mg Fluticasone/Vilanterol (Fluticasone/Vilanterol 100/25mcg 14 Puffs/Inhaler) 1 puffs INH DAILY ROBERTA Stop: 05/30/24 10:14 Last Admin: 05/02/24 08:03 Dose: 1 puffs Furosemide (Furosemide 20 Mg Tab) 20 mg PO DAILY ROBERTA Stop: 05/30/24 09:59 Last Admin: 05/02/24 08:05 Dose: 20 mg Gabapentin (Gabapentin 100 Mg Cap) 100 mg PO BID@0900,1200 ROBERTA Stop: 05/30/24 09:59 Last Admin: 05/02/24 11:54 Dose: 100 mg Gabapentin (Gabapentin 300 Mg Cap) 300 mg PO HS [facility] Stop: 06/01/24 20:59 Glucagon (Glucagon For Inj 1 Mg Vial) 1 mg SQ UD PRN; Protocol PRN Reason: Hypoglycemia Protocol Stop: 05/30/24 09:25 Glucose (Glucose 40% Gel 15 Gm Tube) 15 - 30 gm PO UD PRN; Protocol PRN Reason: Hypoglycemia Protocol Stop: 05/30/24 09:25 Glucose (Glucose 10 Tab/Tube) 4 - 8 tab PO UD PRN; Protocol PRN Reason: Hypoglycemia Treatment Stop: 05/30/24 09:25 Sodium Chloride (Nss) 1,000 mls @ 75 mls/hr IV .[id number] ROBERTA Stop: 05/30/24 07:59 Last Admin: 05/02/24 10:31 Dose: 75 mls/hr Insulin Aspart (Insulin Aspart Per Unit Charge) 0 units SC ACHS ROBERTA Stop: 05/30/24 11:59 Last Admin: 05/02/24 11:31 Dose: Not Given Levalbuterol HCl (Levalbuterol 1.25 Mg/3 Ml Neb) 1.25 mg NEB Q4H PRN PRN Reason: Shortness Of Breath Or Wheezing Stop: 05/30/24 09:25 Metoprolol Succinate (Metoprolol Succ 25mg Ext Rel Tab) 25 mg PO BID ROBERTA Stop: 05/30/24 09:59 Last Admin: 05/02/24 08:06 Dose: 25 mg Miscellaneous (Carbohydrates For Hypoglycemia ) 15 - 30 gm PO UD PRN PRN Reason: Hypoglycemia Protocol Stop: 05/30/24 09:25 Montelukast Sodium (Montelukast Sodium 10 Mg Tablet) 10 mg PO DAILY ROBERTA Stop: 05/30/24 09:59 Last Admin: 05/02/24 08:05 Dose: 10 mg Nitroglycerin (Nitroglycerin Sl 0.4 Mg/Tab Tab) 0.4 mg SL Q5M PRN PRN Reason: Chest Pain Stop: 05/30/24 09:25 Ondansetron HCl (Ondansetron Inj 2 Mg/Ml 2 Ml Vial) 4 mg IV Q6H PRN PRN Reason: Nausea Stop: 09/04/24 09:25 Pantoprazole Sodium (Pantoprazole 40 Mg Tab) 40 mg PO BID ROBERTA Stop: 05/31/24 20:59 Last Admin: 05/02/24 08:04 Dose: 40 mg Paroxetine HCl (Paroxetine Hcl 20 Mg Tab) 40 mg PO DAILY ROBERTA Stop: 05/30/24 09:59 Last Admin: 05/02/24 08:06 Dose: 40 mg Pravastatin Sodium (Pravastatin Sod 40 Mg Tab) 40 mg PO HS ROBERTA Stop: 05/30/24 20:59 Last Admin: 05/01/24 20:52 Dose: 40 mg Primidone (Primidone 50 Mg Tab) 50 mg PO BID ROBERTA Stop: 05/30/24 09:59 Last Admin: 05/02/24 08:04 Dose: 50 mg Spironolactone (Spironolactone 25 Mg Tab) 25 mg PO DAILY ROBERTA Stop: 05/30/24 09:59 Last Admin: 04/30/24 10:43 Dose: Not Given Umeclidinium Marshall (Umeclidinium Marshall 62.5mcg/Blister 7 Puffs/Inhaler) 1 puffs INH DAILY ROBERTA Stop: 05/30/24 09:59 Last Admin: 05/02/24 08:03 Dose: 1 puffs (1) GI bleed GI bleed type/associated pathology: unspecified gastrointestinal hemorrhage type Qualified Code(s): K92.2 - Gastrointestinal hemorrhage, unspecified
[2024-05-02] MEDS: POLYETHYLENE (MIRALAX) 17 GM PACK PO SCH (13:23)
[2024-05-02] MEDS: GABAPENTIN 300 MG CAP PO SCH (20:56)
[2024-05-03 06:09] LABS: Basophils # (auto) 0.03 K/uL (0.00-0.20); Basophils % (auto) 0.4 %; Eosinophils # (auto) 0.38 K/uL (0.00-0.50); Eosinophils % (auto) 4.4 %; Hematocrit (blood only) 25.7 % (42.0-52.0); Hemoglobin 8.2 g/dl (14.0-18.0); Immature Granulocytes # (auto) 0.08 K/uL (0.01-0.20); Immature Granulocytes % (auto) 0.9 %; Lymphocytes # (auto) 3.75 K/uL (1.20-3.40); Lymphocytes % (auto) 43.8 %; Mean Corpuscular Hemoglobin 30.9 pg (25.0-34.0); Mean Corpuscular Hgb Conc 31.9 g/dL (32.0-36.0); Mean Platelet Volume 10.7 fL (9.4-12.4); Monocytes # (auto) 0.98 K/uL (0.11-0.59); Monocytes % (auto) 11.4 %; Neutrophils # (auto) 3.35 K/uL (1.40-6.50); Neutrophils % (auto) 39.1 %; Nucleated RBC # (auto) 0.02 K/uL (0.00-0.12); Nucleated RBC % (auto) 0.2 %; Platelet Count 143 K/uL (130-400); RDW Coefficient of Variation 13.3 % (11.5-14.5); RDW Standard Deviation 45.5 fL (36.4-46.3); Red Blood Count 2.65 M/uL (4.70-6.10); White Blood Count 8.57 K/ul (4.8-10.8)
[2024-05-03 06:20] LABS: BUN Creatinine Ratio 11.6 (10-20); Creatinine Clr Calc Pharmacy 84.6 ml/min; Est GFR (African American) 82.9 ml/min; Est GFR (Non-African American) 71.5 ml/min; Potassium 4.5 mmol/L (3.5-5.1)
[2024-05-03 07:47] VITALS: TEMP 97.9
--- NOTE | 2024-05-03 09:15 | Gastroenterology Progress Note ---
Date of Service May 03, 2024 Assessment & Plan (1) Acute GI bleeding: Plan: 58 year old male with history of interstitial lung disease, GRACIE, migraines, dyslipidemia and others below admitted through the ED report of melena and hematochezia, EGD yesterday revealing a non-bleeding gastric ulcer with no stigmata of bleeding. gastritis and old blood/food in stomach. He has remained hemodynamically stable overnight, HGB 8.2, BUN 13 w/o further reports of GI bleeding. Suspect he was passing some old blood, re-educated that he may pass another dark stool but if stools become more frequent, darker or BRB that would be reason to seek urgent care. No GI contraindication to diet No GI contraindication to discharge PO PPI BID Trend HGB Monitor and document GI output Transfuse PRN per primary service I spent a total of 40 minutes on the date of service in review of patient's record, and previously obtained information in person and appropriate medical visit, discussion and education of plan, with patient and/or caregiver, placing orders for tests/referral/procedures as medically necessary and documentation of pertinent clinical information in patient's medical records for their visit today. Admission and Anticipated Discharge Date Admission Date: April 30, 2024 Supervising Physician Co-Signing Physician Notes I personally saw and examined the patient. I have reviewed the chart and agree with the documentation provided by the MANAGER PHARMACY including discussion about the assessment, treatment and plan. hgb improved and feels better. clean based ulcer with chronic gastritis and NO HP. Subjective Feeling well. No acute events noted overnight. No additional BMs. HGB stable, slight upward trend. No abd pain, nausea, vomiting, diarrhea/constipation, hematochezia. Review of Systems Review of Systems: All other findings negative except as noted in HPI. Physical Exam Constitutional: WD/WN, vitals as above Respiratory: normal respiratory effort, lungs clear to auscultation Cardiovascular: Rate/Rhythm: regular rate and regular rhythm Gastrointestinal (Abdomen): normal bowel sounds, soft, nontender, no hepatosplenomegaly Skin: no rashes, warm and dry Results & Data Results & Data Vital Signs (Past 12 Hours) Vital Signs Temp Pulse Pulse Resp BP Pulse Ox O2 Del Method 05/03/24 07:46 36.6 C 75 18 103/65 91 Nasal Cannula 05/03/24 03:44 36.8 C 66 18 95/51 L 97 Nasal Cannula 05/02/24 22:48 36.5 C 84 18 109/76 97 Nasal Cannula 05/02/24 22:36 84 05/02/24 21:23 Nasal Cannula O2 Flow Rate 05/03/24 07:46 2 05/03/24 03:44 2 05/02/24 22:48 05/02/24 22:36 05/02/24 21:23 2 Laboratory Results 05/03/24 05/03/24 05/02/24 Range/Units 07:16 05:22 20:38 WBC 8.57 (4.8-10.8) K/ul RBC 2.65 L (4.70-6.10) M/uL Hgb 8.2 L (14.0-18.0) g/dl Hct 25.7 L (42.0-52.0) % MCV 97.0 (80.0-100.0) fL MCH 30.9 (25.0-34.0) pg MCHC 31.9 L (32.0-36.0) g/dL RDW Std Deviation 45.5 (36.4-46.3) fL RDW Coeff of Riley 13.3 (11.5-14.5) % Plt Count 143 (130-400) K/uL MPV 10.7 (9.4-12.4) fL Immature Gran % (Auto) 0.9 % Neut % (Auto) 39.1 % Lymph % (Auto) 43.8 % Travis % (Auto) 11.4 % Eos % (Auto) 4.4 % Baso % (Auto) 0.4 % Neut # (Auto) 3.35 (1.40-6.50) K/uL Lymph # (Auto) 3.75 H (1.20-3.40) K/uL Travis # (Auto) 0.98 H (0.11-0.59) K/uL Eos # (Auto) 0.38 (0.00-0.50) K/uL Baso # (Auto) 0.03 (0.00-0.20) K/uL Immature Gran # (Auto) 0.08 (0.01-0.20) K/uL Absolute Nucleated RBC 0.02 (0.00-0.12) K/uL Nucleated RBC % (auto) 0.2 % Sodium 138 (136-145) mmol/L Potassium 4.5 (3.5-5.1) mmol/L Chloride 102 (98-107) mmol/L Carbon Dioxide 34 H (21-32) mmol/L Anion Gap 2 L (3-11) BUN 13 (6-23) mg/dl Creatinine 1.12 (0.6-1.4) mg/dl Est Cr Clr Drug Dosing 84.6 ml/min Est GFR ( Amer) 82.9 ml/min Est GFR (Non-Af Amer) 71.5 ml/min BUN/Creatinine Ratio 11.6 (10-20) Glucose 107 H (70-99(Fasting)) mg/dl POC Glucose 118 H 149 H (70-99) mg/dl Calcium 8.0 L (8.6-10.3) mg/dl 05/02/24 05/02/24 Range/Units 16:04 11:18 WBC (4.8-10.8) K/ul RBC (4.70-6.10) M/uL Hgb (14.0-18.0) g/dl Hct (42.0-52.0) % MCV (80.0-100.0) fL MCH (25.0-34.0) pg MCHC (32.0-36.0) g/dL RDW Std Deviation (36.4-46.3) fL RDW Coeff of Riley (11.5-14.5) % Plt Count (130-400) K/uL MPV (9.4-12.4) fL Immature Gran % (Auto) % Neut % (Auto) % Lymph % (Auto) % Travis % (Auto) % Eos % (Auto) % Baso % (Auto) % Neut # (Auto) (1.40-6.50) K/uL Lymph # (Auto) (1.20-3.40) K/uL Travis # (Auto) (0.11-0.59) K/uL Eos # (Auto) (0.00-0.50) K/uL Baso # (Auto) (0.00-0.20) K/uL Immature Gran # (Auto) (0.01-0.20) K/uL Absolute Nucleated RBC (0.00-0.12) K/uL Nucleated RBC % (auto) % Sodium (136-145) mmol/L Potassium (3.5-5.1) mmol/L Chloride (98-107) mmol/L Carbon Dioxide (21-32) mmol/L Anion Gap (3-11) BUN (6-23) mg/dl Creatinine (0.6-1.4) mg/dl Est Cr Clr Drug Dosing ml/min Est GFR ( Amer) ml/min Est GFR (Non-Af Amer) ml/min BUN/Creatinine Ratio (10-20) Glucose (70-99(Fasting)) mg/dl POC Glucose 109 H 127 H (70-99) mg/dl Calcium (8.6-10.3) mg/dl PG Care Time/CCT Total # of Minutes Spent Total Time Spent with Patient: Total time spent is greater than 50% in coordination of care (as documented) at patient's floor/unit and/or counseling patient: Coding Level of Care Code 74174 SUB INP/OBS CARE 2/35MIN Diagnoses Acute GI bleeding K92.2
[2024-05-03 11:09] VITALS: BP 118/81; O2SAT 99
[2024-05-03] MEDS ORDERED: DOCUSATE SODIUM 100 MG CAP PO PRN (12:07)
--- NOTE | 2024-05-03 12:07 | Hospitalist Progress Note ---
Date of Service May 03, 2024 Assessment & Plan (1) GI bleed: Plan: 58-year-old male with past medical history significant for type 2 diabetes currently not on medications, hyperlipidemia, chronic respiratory failure with hypoxia on home oxygen, obstructive sleep apnea on CPAP, history of hypersensitive pneumonitis, COPD, moderate persistent asthma, chronic right- sided heart rate, GERD, hepatitis steatosis, restless leg syndrome, left avascular necrosis of femoral head, migraine with aura, essential tremor, depression, tobacco use disorder presents with GI bleed. Patient woke up last night with abdominal cramps and had an episode of blood per rectum. He had few more episodes which also had black and bloody stools. Currently no abdominal pain. Since he came to the ER no more episodes. Denies any chest pain. No shortness of breath. Currently no cough. No fevers. No headache. When this episodes were happening he felt dizzy. No blurred vision. No sore throat. Micturating okay. Currently hemodynamics are okay. Never had GI bleed in the past.Patient had an episode of shaking when EMS was transferring him, no loss of consciousness and at the time lights were bothering him. Patient states he had this episodes of shaking spells going on for couple of years now. Acute GI bleed Presented with black stools and blood per rectum Likely secondary to gastritis --S/P EGD:Normal esophagus. Acute gastritis, characterized by erythema. Biopsied. Non-bleeding gastric ulcer with no stigmata of bleeding. Normal examined duodenum. Old blood and food found in fundus. NO ACTIVE BLEEDING. Protonix drip transition to p.o. Protonix 40 mg twice daily Aspirin held during hospitalization Appreciate GI input Bowel regimen to prevent constipation Discussed with gastroenterology on 05/03/2024: Okay to resume aspirin upon discharge Monitor H&H and transfuse as needed DM II Not on any maintenance medications Well-controlled HbA1c 5.7 COPD Chronic respiratory failure on 2 L oxygen Moderate persistent asthma History of hypersensitive pneumonitis No acute exacerbation Continue home inhalers Nebs as needed Obstructive sleep apnea CPAP nightly Chronic right-sided heart failure Continue home Lasix and spironolactone Monitor for volume overload systems: Essential tremor On primidone Restless leg syndrome On gabapentin As per prior provider: Shaking episodes As per neurology notes States patient has Episodes of jerks and dropping objects which Neurology thinks mostly myoclonus and EEG was done which was unremarkable. Neurology was contemplating starting low-dose Keppra if Patient develops more pr otracted episodes of clear-cut myoclonus. He does not have any more shaking episodes Hyperlipidemia On statin Hypertension On metoprolol succinate and diuretics Monitor blood pressure Depression Continue paroxetine and amitriptyline DVT Px: SCDs Re: GI bleed CODE STATUS Full code. Admission and Anticipated Discharge Date Admission Date: April 30, 2024 Subjective Patient is seen and examined at bedside No recurrence of rectal bleed States feeling well today Hemoglobin stable Discussed with GI today Denies any nausea, vomiting, chest pain, abdominal pain, dyspnea Prefers to be discharged home today Review of Systems Review of Systems: All systems reviewed & are unremarkable except as noted in Subjective Physical Exam Physical Exam: Physical Exam: Vitals signs as noted above General Appearance:Obese, no apparent distress Head: normocephalic, Atraumatic Eyes: normal inspection, EOMI Neck: supple, Trachea midline Respiratory/Chest: Normal breath sounds, CTA, No accessory muscle use Cardiovascular: S1, S2, No murmur Abdomen/GI:Soft, Non tender, Bowel sounds present Extremities/Musculoskeletal:normal inspection, no edema Neurologic/Psych:AAOX3, grossly no focal neurological deficits Skin: normal color, warm Results & Data Results & Data Vital Signs (Past 12 Hours) Vital Signs Temp Pulse Pulse Resp BP Pulse Ox Pulse Ox 05/03/24 11:08 36.6 C 64 18 118/81 99 05/03/24 09:34 64 05/03/24 09:00 97 05/03/24 08:00 05/03/24 07:46 36.6 C 75 18 103/65 91 05/03/24 03:44 36.8 C 66 18 95/51 L 97 O2 Del Method O2 Del Method O2 Flow Rate O2 Flow Rate 05/03/24 11:08 Nasal Cannula 2 05/03/24 09:34 05/03/24 09:00 Nasal Cannula 2 05/03/24 08:00 Nasal Cannula 2 05/03/24 07:46 Nasal Cannula 2 05/03/24 03:44 Nasal Cannula 2 Laboratory Results Short CBC 05/03/24 Range/Units 05:22 WBC 8.57 (4.8-10.8) K/ul Hgb 8.2 L (14.0-18.0) g/dl Hct 25.7 L (42.0-52.0) % Plt Count 143 (130-400) K/uL BMP 05/03/24 05:22 Sodium 138 Potassium 4.5 Chloride 102 Carbon Dioxide 34 H BUN 13 Creatinine 1.12 Glucose 107 H Calcium 8.0 L (1) GI bleed GI bleed type/associated pathology: unspecified gastrointestinal hemorrhage type Qualified Code(s): K92.2 - Gastrointestinal hemorrhage, unspecified
--- NOTE | 2024-05-03 12:16 | Discharge Summary ---
Date of Service May 03, 2024 Admission HPI Per Admitting Provider 58-year-old male with past medical history significant for type 2 diabetes currently not on medications, hyperlipidemia, chronic respiratory failure with hypoxia on home oxygen, obstructive sleep apnea on CPAP, history of hypersensitive pneumonitis, COPD, moderate persistent asthma, chronic right- sided heart rate, GERD, hepatitis steatosis, restless leg syndrome, left avascular necrosis of femoral head, migraine with aura, essential tremor, depression, tobacco use disorder presents with GI bleed. Patient woke up last night with abdominal cramps and had an episode of blood per rectum. He had few more episodes which also had black and bloody stools. Currently no abdominal pain. Since he came to the ER no more episodes. Denies any chest pain. No shortness of breath. Currently no cough. No fevers. No headache. When this episodes were happening he felt dizzy. No blurred vision. No sore throat. Micturating okay. Currently hemodynamics are okay. Never had GI bleed in the past.Patient had an episode of shaking when EMS was transferring him, no loss of consciousness and at the time lights were bothering him. Patient states he had this episodes of shaking spells going on for couple of years now. Past medical history. As mentioned above Past surgical history. Colonoscopy and EGD. EGD with endoscopic ultrasound. Lithotripsy. Repair of broken nose. Ureteral stent placement. Tonsillectomy. Injection of sacral iliac joint Social history. . Quit smoking in 2019. Note 1 pack a day for 42 years. No alcohol use. Currently no drug use. Family history. Mother had COPD. Father had diabetes. Hypertension. Fatal [place]/stroke at age 79. Brother had heart attack. Brother had lung cancer. Sister had lung cancer. History of COPD. Admission Exam Per Admitting Provider General- Not in distress Head- atraumatic Eyes- PERRL. ENT- oropharynx clear Neck- supple, no JVD. Lungs- clear to auscultation no wheezing or crackles Heart- regular rhythm; no murmur, no gallop. Abdomen- normal bowel sounds, soft, nontender, no distension Extremities- no pretibial edema, no erythema seen Neuro- alert, oriented PERRL, EOMI; no facial palsy; no dysarthria; moves extremities. Skin- warm & dry Principal Diagnosis Acute GI bleed Acute gastritis Nonbleeding gastric ulcer Discharge Data Allergies Allergy/AdvReac Type Severity Reaction Status Date / Time levetiracetam [From [facility]] Allergy tongue Verified 04/30/24 12:54 edema morphine AdvReac Unknown Vomiting Verified 04/30/24 12:54 Consultations 04/30/24 06:10 ED Decision to Admit Stat 04/30/24 09:26 Consult Gastroenterology Routine Procedures Performed Operation Date: 04/30/24 17:00 Actual Procedures p EGD Biopsy Cytology - Mike Salazar MD Ordered Studies Laboratory Results WBC 8.57 K/ul (4.8-10.8) 05/03/24 05:22 RBC 2.65 M/uL (4.70-6.10) L 05/03/24 05:22 Hgb 8.2 g/dl (14.0-18.0) L 05/03/24 05:22 POC Hgb 10.5 g/dl (14.0-18.0) L 04/30/24 04:28 Hct 25.7 % (42.0-52.0) L 05/03/24 05:22 POC Hct 31 % (42-52) L 04/30/24 04:28 MCV 97.0 fL (80.0-100.0) 05/03/24 05:22 MCH 30.9 pg (25.0-34.0) 05/03/24 05:22 MCHC 31.9 g/dL (32.0-36.0) L 05/03/24 05:22 RDW Std Deviation 45.5 fL (36.4-46.3) 05/03/24 05:22 RDW Coeff of Riley 13.3 % (11.5-14.5) 05/03/24 05:22 Plt Count 143 K/uL (130-400) 05/03/24 05:22 MPV 10.7 fL (9.4-12.4) 05/03/24 05:22 Immature Gran % (Auto) 0.9 % 05/03/24 05:22 Neut % (Auto) 39.1 % 05/03/24 05:22 Lymph % (Auto) 43.8 % 05/03/24 05:22 [place] % (Auto) 11.4 % 05/03/24 05:22 Eos % (Auto) 4.4 % 05/03/24 05:22 Baso % (Auto) 0.4 % 05/03/24 05:22 Neut # (Auto) 3.35 K/uL (1.40-6.50) 05/03/24 05:22 Lymph # (Auto) 3.75 K/uL (1.20-3.40) H 05/03/24 05:22 [place] # (Auto) 0.98 K/uL (0.11-0.59) H 05/03/24 05:22 Eos # (Auto) 0.38 K/uL (0.00-0.50) 05/03/24 05:22 Baso # (Auto) 0.03 K/uL (0.00-0.20) 05/03/24 05:22 Immature Gran # (Auto) 0.08 K/uL (0.01-0.20) 05/03/24 05:22 Absolute Nucleated RBC 0.02 K/uL (0.00-0.12) 05/03/24 05:22 Nucleated RBC % (auto) 0.2 % 05/03/24 05:22 Neutrophils % (Manual) 69 % 04/30/24 04:07 Lymphocytes % (Manual) 19 % 04/30/24 04:07 Monocytes % (Manual) 12 % 04/30/24 04:07 Neutrophils # (Manual) 13.29 K/uL (1.40-6.50) H 04/30/24 04:07 Total Absolute Neuts 13.29 K/uL (1.4-6.5) H 04/30/24 04:07 Lymphocytes # (Manual) 3.66 K/uL (1.2-3.4) H 04/30/24 04:07 Total Abs Lymphocytes 3.66 K/uL (1.2-3.4) H 04/30/24 04:07 Monocytes # (Manual) 2.31 K/uL (0.11-0.59) H 04/30/24 04:07 RBC Morphology Unremarkable 05/02/24 06:05 PT 11.8 Seconds (9.0-12.0) 04/30/24 05:16 INR 1.1 (0.9-1.1) 04/30/24 05:16 APTT 23 Seconds (21-31) 04/30/24 05:16 PTT Ratio 0.9 04/30/24 05:16 POC Sodium 136 mmol/L (135-144) 04/30/24 04:28 Sodium 138 mmol/L (136-145) 05/03/24 05:22 POC Potassium 6.6 mmol/L (3.3-5.0) H* 04/30/24 04:28 Potassium 4.5 mmol/L (3.5-5.1) 05/03/24 05:22 POC Chloride 104 mmol/L (101-112) 04/30/24 04:28 Chloride 102 mmol/L (98-107) 05/03/24 05:22 Carbon Dioxide 34 mmol/L (21-32) H 05/03/24 05:22 POC Total CO2 27 mmol/L (24-31) 04/30/24 04:28 Anion Gap 2 (3-11) L 05/03/24 05:22 POC Anion Gap 13.0 mmol/L (16-25) L 04/30/24 04:28 POC BUN 57 mg/dl (7-18) H 04/30/24 04:28 BUN 13 mg/dl (6-23) 05/03/24 05:22 Creatinine 1.12 mg/dl (0.6-1.4) 05/03/24 05:22 POC Creatinine 1.3 mg/dl (0.6-1.3) 04/30/24 04:28 Est Cr Clr Drug Dosing 84.6 ml/min 05/03/24 05:22 Est GFR ( Amer) 82.9 ml/min 05/03/24 05:22 Est GFR (Non-Af Amer) 71.5 ml/min 05/03/24 05:22 BUN/Creatinine Ratio 11.6 (10-20) 05/03/24 05:22 Glucose 107 mg/dl (70-99(Fasting)) H 05/03/24 05:22 POC Glucose 120 mg/dl (70-99) H 05/03/24 11:04 POC Glucose (other) 122 mg/dl (70-99) H 04/30/24 04:28 Calcium 8.0 mg/dl (8.6-10.3) L 05/03/24 05:22 POC Ioniz Calcium Terri 1.06 mmol/l (1.12-1.32) L 04/30/24 04:28 Phosphorus 3.1 mg/dl (2.5-4.9) 05/01/24 05:38 Magnesium 1.8 mg/dl (1.7-2.4) 05/01/24 05:38 Total Bilirubin 0.5 mg/dl (0.2-1.0) 04/30/24 04:07 AST 30 U/L (13-39) 04/30/24 04:07 ALT 31 U/L (7-52) 04/30/24 04:07 Alkaline Phosphatase 81 U/L (34-104) 04/30/24 04:07 Troponin I High Sens 3.1 pg/ml (0-20) 04/30/24 04:07 Total Protein 7.1 gm/dl (6.0-8.3) 04/30/24 04:07 Albumin 3.9 gm/dl (3.4-5.0) 04/30/24 04:07 Globulin 3.2 gm/dl (2.5-4.0) 04/30/24 04:07 Albumin/Globulin Ratio 1.2 (0.9-2) 04/30/24 04:07 Stl C. cayetanensis PCR Not Detected (NotDetected) 04/30/24 08:35 Stool Rotavirus A PCR Not Detected (NotDetected) 04/30/24 08:35 Stl Adenov F 40/41 PCR Not Detected (NotDetected) 04/30/24 08:35 Stool Astrovirus (PCR) Not Detected (NotDetected) 04/30/24 08:35 Stool Campylobacter PCR Not Detected (NotDetected) 04/30/24 08:35 Stl C. diff Tox B Gene Negative Cdiff Gene (Neg) 04/30/24 08:35 Stool Cryptosporidium PCR Not Detected (NotDetected) 04/30/24 08:35 Stl E.coli Shiga Tox PCR Not Detected (NotDetected) 04/30/24 08:35 Stl Enterotoxigenic E PCR Not Detected (NotDetected) 04/30/24 08:35 Stool EPEC (PCR) Not Detected (NotDetected) 04/30/24 08:35 Stool EAEC (PCR) Not Detected (NotDetected) 04/30/24 08:35 Stl E. histolytica PCR Not Detected (NotDetected) 04/30/24 08:35 Stool Giardia Lamblia PCR Not Detected (NotDetected) 04/30/24 08:35 Stool Salmonella PCR Not Detected (NotDetected) 04/30/24 08:35 Stool Sapovirus (PCR) Not Detected (NotDetected) 04/30/24 08:35 Stl P. shigelloides PCR Not Detected (NotDetected) 04/30/24 08:35 Stl Shigella/EIEC PCR Not Detected (NotDetected) 04/30/24 08:35 St Y.enterocolitica PCR Not Detected (NotDetected) 04/30/24 08:35 Stool Vibrio (PCR) Not Detected (NotDetected) 04/30/24 08:35 Stl Vibrio cholerae PCR Not Detected (NotDetected) 04/30/24 08:35 Stl Norovirus GI/GII PCR Not Detected (NotDetected) 04/30/24 08:35 Blood Type O Negative 04/30/24 04:20 Antibody Screen NEGATIVE 04/30/24 04:20 Impressions Chest X-Ray 04/30/24 09:23 XR chest 1V portable HISTORY: Congestive heart failure. Shortness of breath. COMPARISON: Chest 11/04/2019. FINDINGS: No pneumothorax. No pleural effusions. S-shaped scoliosis again noted with chest wall deformities. Left basilar linear densities favor subsegmental atelectasis or scarring. This is similar to the prior study. There is perihilar interstitial/vascular thickening which has progressed. This suggests developing pulmonary edema. The heart remains enlarged. No acute fractures. IMPRESSION: Interval progression of the interstitial/vascular thickening with mild cardiomegaly. This suggests developing pulmonary edema. ACT 112: Negative or not required by law. Electronically signed by: Adams Burgess M.D. 04/30/2024 11:01 AM Hospital Course (1) GI bleed: 58-year-old male with past medical history significant for type 2 diabetes currently not on medications, hyperlipidemia, chronic respiratory failure with hypoxia on home oxygen, obstructive sleep apnea on CPAP, history of hypersensitive pneumonitis, COPD, moderate persistent asthma, chronic right- sided heart rate, GERD, hepatitis steatosis, restless leg syndrome, left avascular necrosis of femoral head, migraine with aura, essential tremor, depression, tobacco use disorder presents with GI bleed. Patient woke up last night with abdominal cramps and had an episode of blood per rectum. He had few more episodes which also had black and bloody stools. Currently no abdominal pain. Since he came to the ER no more episodes. Denies any chest pain. No shortness of breath. Currently no cough. No fevers. No headache. When this episodes were happening he felt dizzy. No blurred vision. No sore throat. Micturating okay. Currently hemodynamics are okay. Never had GI bleed in the past.Patient had an episode of shaking when EMS was transferring him, no loss of consciousness and at the time lights were bothering him. Patient states he had this episodes of shaking spells going on for couple of years now. Acute GI bleed Presented with black stools and blood per rectum Likely secondary to gastritis --S/P EGD:Normal esophagus. Acute gastritis, characterized by erythema. Biopsied. Non-bleeding gastric ulcer with no stigmata of bleeding. Normal examined duodenum. Old blood and food found in fundus. NO ACTIVE BLEEDING. Protonix drip transition to p.o. Protonix 40 mg twice daily Aspirin held during hospitalization Appreciate GI input Bowel regimen to prevent constipation Discussed with gastroenterology on 05/03/2024: Okay to resume aspirin upon discharge Monitor H&H and transfuse as needed DM II Not on any maintenance medications Well-controlled HbA1c 5.7 COPD Chronic respiratory failure on 2 L oxygen Moderate persistent asthma History of hypersensitive pneumonitis No acute exacerbation Continue home inhalers Nebs as needed Obstructive sleep apnea CPAP nightly Chronic right-sided heart failure Continue home Lasix and spironolactone Monitor for volume overload systems: Essential tremor On primidone Restless leg syndrome On gabapentin As per prior provider: Shaking episodes As per neurology notes States patient has Episodes of jerks and dropping objects which Neurology thinks mostly myoclonus and EEG was done which was unremarkable. Neurology was contemplating starting low-dose Keppra if Patient develops more protracted episodes of clear-cut myoclonus. He does not have any more shaking episodes Hyperlipidemia On statin Hypertension On metoprolol succinate and diuretics Monitor blood pressure Depression Continue paroxetine and amitriptyline DVT Px: SCDs Re: GI bleed CODE STATUS Full code. Total Time Total Time Spent Total Time Spent (In Minutes): 58 minutes Discharge Plan Discharge Items Patient Disposition: Home - Self-Care Reason For Visit: gi bleed Discharge Diagnosis: Acute GI bleed Acute gastritis Nonbleeding gastric ulcer Activity: Per Instructions section Exercise/Sports: Gradually increase as tolerated Non-emergency contact: Primary Care Provider and [facility] [employer] Call non-emergency contact if: you have any medication questions, your symptoms worsen, your pain is concerning for you and you have a fever Follow-up/Referrals: Jose Armando Veloz MD [Primary Care Provider] - (Date & Time 05/09/2024 10:00 AM Provider Nicholas Rahman MD [facility] ) Diet: Carb Consistent or DM2 and Heart Healthy Addtl Attending Provider Instructions: Follow-up with your primary care physician on 05/09/2024 10:00 AM Follow-up with the snow shoveler Dr.Ashish Salazar as recommended Seek immediate medical attention if your symptoms reoccur or worsen Please take all medications as instructed on discharge list below. Please call if you have any questions or problems. You can reach a [facility] hospitalist on duty at [facility] 24 hours a day by calling [phone] Pending Studies at Discharge: No Stand-Alone Forms: My [facility], Smoking Cessation Medications and DC Order Prescriptions: New docusate sodium 100 mg Capsule 100 mg PO BID PRN (Reason: constipation ) Qty: 60 0RF polyethylene glycol 3350 [Miralax] 17 gram Powder In Packet 17 g PO DAILY PRN (Reason: constipation) Qty: 30 0RF pantoprazole 40 mg Tablet,Delayed Release (Dr/Ec) 40 mg PO BID Qty: 60 1RF Continued primidone 50 mg tablet 50 mg PO BID pravastatin 40 mg tablet 40 mg PO HS amitriptyline 50 mg tablet 75 mg PO HS spironolactone 25 mg tablet 25 mg PO DAILY famotidine 20 mg tablet 20 mg PO DAILY montelukast 10 mg tablet 10 mg PO DAILY furosemide 20 mg tablet 20 mg PO DAILY gabapentin 100 mg capsule 100 mg PO UD Rx Instructions: 1 cap in am and at noon and 2 -3 cap q hs metoprolol succinate 25 mg tablet extended release 24 hr 25 mg PO BID albuterol sulfate 90 mcg/actuation HFA aerosol inhaler 2 puff INHALATION Q4H PRN (Reason: Shortness Of Breath Or Wheezing) paroxetine HCl 40 mg tablet 40 mg PO DAILY cyclobenzaprine 5 mg tablet 2.5 mg PO HS PRN (Reason: Spasms) varenicline 1 mg tablet 1 mg PO BID Dulera 200-5 mcg/actuation HFA aerosol inhaler 2 puff INHALATION BID Incruse Ellipta 62.5 mcg/actuation blister with device 1 inh INHALATION DAILY Combivent Respimat 20-100 mcg/actuation mist 1 puff INHALATION Q4H PRN (Reason: Shortness Of Breath Or Wheezing) Held potassium chloride 10 mEq tablet,ER particles/crystals 10 meq PO DAILY Hold Instructions: Until further recommendations from your primary care physician aspirin [Aspir-81] 81 mg Tablet,Delayed Release (Dr/Ec) 81 mg PO DAILY Hold Instructions: Resume on 05/07/24. Can resume if no recurrence of bleeding Discharge Orders: Discharge Order (Routine); Ordered 05/03/24 Ordered By: Mikael Diallo Admission Data Admit Date/Time: 04/30/24 07:59 Attending Provider: Mikael Diallo Admit Provider: Javier Montesinos Primary Care Provider: Jose Armando Veloz Other Providers: Javier Montesinos; Kamari Boothe
[2024-05-03 12:23] VITALS: PULSE 103
== END 2024-05-03 13:15 | disposition home or self-care (01) | DRG 378 ==
LOC: ED 03:55 → SUATTDRO 07:59 → EDINP 07:59 → 2E 09:26